=== PATIENT | male | born 1950 | race Caucasian/White ===

== ENCOUNTER 2020-03-02 09:55 | Day surgery (SDC) | payer OTHER, SELFPAY ==
[2020-02-28 14:08] VITALS: BMI 31.6
--- NOTE | 2020-03-02 10:55 | ECG_ITS ---
Measurements Intervals [place] Rate: 65 P: 56 [place]: 200 QRS: 11 QRSD: 148 T: 9 QT: 424 QTc: 441 SINUS RHYTHM RIGHT BUNDLE BRANCH BLOCK [120+ ms QRS DURATION, UPRIGHT V1, 40+ ms S IN I/aVL/V4/V5/V6] No previous ECG available for comparison Electronically Signed On 03-02-2020 19:30:58 CDT by Bon Hemphill M.D. [id number]
[2020-03-02 11:03] VITALS: BP 144/93; PULSE 62; RESP 18; TEMP 36.4; O2SAT 95
[2020-03-02 11:23] LABS: Glucose Point of Care 111 mg/dL (70-110)
--- NOTE | 2020-03-02 11:23 | ANES.PREANE2 ---
Pre-Anesthetic Assessment Pre-Anesthetic Assessment: Height/Weight: Height 1.8 m Weight 102.965 kg Temp Pulse Resp BP Pulse Ox 97.6 F 62 18 144/93 95 03/02/20 11:03 03/02/20 11:03 03/02/20 11:03 03/02/20 11:03 03/02/20 11:03 Preop Diagnosis: Lower back infected sebaceous cyst Proposed Procedure: Operation Date: 03/02/20 11:40 Proposed Procedures p Incision And Drainage abcess of lower back 67014 L02.91(Not Applicable) - Tim Louis MD Familial anesthetic complications: None Last took plavix monday Was Beta Ximena taken within 24 hours: Yes Last intake: Intake Last Liquid Date 03/01/20 Last Liquid Time 19: Last Solid Date 03/01/20 Last Solid Time :00 Social: Social History: No alcohol and No tobacco Exam: Pre-Anes Outpt Exam: alert, oriented x 3, clear to auscultation bilaterally and regular rate & rhythm Airway: Cervical ROM: WNL MP: 2 Dentition: False Pulmonary: Pulmonary: None reported CV/HEM: CV/HEM: CAD (stents placed 5 years ago) and HTN Comments: CABG X 7 2004 RBBb HX of pericardial effusion in 1994 : : None reported Hepatic: Hepatic: None reported GI: GI: None reported Metabolic: Metabolic: DM Musc/skel: Musc/skel: None reported Neuropsych: Neuropsych: None reported Anesthetic Plan: ASA status: 3 Anesthesia: MAC Risk of > 500 ml blood loss (7ml/kg in children): No PFSH Anesthesia PFSH: Medical History COPD (chronic obstructive pulmonary disease) Cyst Diabetes History of myocardial infarction in adulthood Hyperlipidemia Hypertension Surgical History History of colonoscopy with polypectomy History of coronary angioplasty with insertion of stent Family History Denies family history of Anesthesia complication Bleeding disorder Social History Smoking and tobacco status: never smoked Second hand smoke exposure: No Alcohol intake: never Adopted: No Caregiver/support person: Yes Lives independently: Yes Household members: spouse Housing: House Marital status: service: Yes Current occupational status: retired Pets and animals: No History of recent travel: No Leisure activites: exercise Sexually active: No Current gender identity: Male Mayra/Moravian: Orthodoxy Special mayra needs: No Agree to transfusion: No Financial difficulty paying for basics: Decline to Answer Data Anesthesia Cardiac Studies: No Data to Display
[2020-03-02] MEDS: sodium chloride 0.9% 1,000 ML 30 ML IV (11:30)
--- NOTE | 2020-03-02 11:40 | W.PM.OPSUD ---
Surgery/Procedure H&P Update DATE OF PROCEDURE: March 02, 2020 DATE H&P PERFORMED: 02/26/20 H&P UPDATE INFORMATION: I have reviewed H&P completed within last 30 days, I have examined patient prior to procedure and No changes to prior documentation PREOP DIAGNOSIS: Lower back infected sebaceous cyst PRIMARY INDICATION FOR PROCEDURE: The same PLANNED PROCEDURE: Operation Date: 03/02/20 11:40 Proposed Procedures p Incision And Drainage abcess of lower back 14666 L02.91(Not Applicable) - Tim Louis MD
[2020-03-02 11:44] LABS: Anion Gap 17.4 (5-19); Blood Urea Nitrogen 26 mg/dL (8-23); Calcium 9.3 mg/dL (8.5-10.5); Carbon Dioxide 24 mmol/L (22-29); Chloride 99 mmol/L (98-107); Glomerular Filtration Rate 50.5 mL/min (90-130); Glucose 113 mg/dL (65-115); Osmolality Calculated 278 mOsm/kg (285-295); Potassium 5.4 mmol/L (3.5-5.1); Sodium 135 mmol/L (136-145)
[2020-03-02] MEDS: clindamycin 900 MG/50 ML PREMIX 100 MG IV (12:25)
[2020-03-02] MEDS: lidocaine 2% INJ 20 mL ×2 (13:25→13:28)
--- NOTE | 2020-03-02 13:27 | PM.OP ---
Operative Report Date of procedure: March 02, 2020 Pre-op Diagnosis: Lower back infected sebaceous cyst Post-op diagnosis: same Post-op Diagnosis: Infected lower back sebaceous cyst Post-op Findings: Post I&D measurements 5 x 3.5 x [address] to the subcutaneous layer Procedure Done: Incision and drainage of infected sebaceous cyst with excision of infected cyst Implants: Large piece of Surgicel Specimens removed/disposition: Infected sebaceous cyst Surgeon: Tim Louis Manager Of Merchandising: food science technician Shawn Circulating nurse Kimberlyn Anesthesia: MAC (Ramy Blackmon) Estimated blood loss (mL): 5 Condition: stable Disposition: same day Brief History: This is a pleasant 69 years old gentleman with 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 An informed consent per chart Procedure: After identifying the patient holding area, the lower back was marked before the procedure by myself, patient was then taken to the operative suite, was placed in supine position then left lateral were all pressure points were padded, propofol was infused by anesthesia, patient was given prophylactic antibiotics.. Time-out was done verifying the patient's name/date of /planned procedure and destination after the procedure, all were in agreement After palpation of the lower back abscess, I did add elliptical transverse incision on top of the most fluctuant area, underlying infected sebaceous cyst with contents, were excised leaving behind healthier tissue cavity measuring 5 x 3.5 x [address] to the subcutaneous layer. Sharp debridement was done all the way to the subcutaneous layer Thorough irrigation with warm saline was done, followed by appropriate hemostasis, large piece of Surgicel was placed for completion hemostasis, followed by packing using mini Kerlix impregnated and lidocaine 2% was used to pack the wound cavity Dry dressing was then applied in the form of ABDs, followed by tape Patient tolerated the procedure well, count of instruments, needles and sponges were completed at the end of the procedure. And then patient was taken to the recovery area in stable condition. I Was present for the whole entire procedure
[2020-03-02 13:53] VITALS: BP 103/49; PULSE 57; RESP 18; O2SAT 96
[2020-03-02 14:20] VITALS: BP 113/56; PULSE 63; RESP 18; O2SAT 100
== END 2020-03-02 14:40 | disposition home or self-care (01) ==
PROVIDERS: Anesthesiology; Family Provider Emergency Medicine Emergency Medical Services; Visit Provider Surgery
PROC: (CPT 11042; principal; 2020-03-02 11:30)
DX: L72.3 Sebaceous cyst (principal); I25.10 Atherosclerotic heart disease of native coronary artery without angina pectoris; I10 Essential (primary) hypertension; Z95.1 Presence of aortocoronary bypass graft; E11.9 Type 2 diabetes mellitus without complications; J44.9 Chronic obstructive pulmonary disease, unspecified; I25.2 Old myocardial infarction; E78.5 Hyperlipidemia, unspecified; Z79.84 Long term (current) use of oral hypoglycemic drugs
CPT/HCPCS: 11042; 12345; 36416; 80048; 82962; 85025; 88304; 93005; J2001; J2250; J3010; J3490; J7030

== ENCOUNTER 2020-03-06 07:59 | Outpatient (CLI) | payer OTHER, SELFPAY | END 2020-03-06 08:00 | disposition home or self-care (01) | LOC: WOUND 08:08 | PROVIDERS: Family Provider Emergency Medicine Emergency Medical Services; Visit Provider Nurse Practitioner Family | DX: L72.8 Other follicular cysts of the skin and subcutaneous tissue (principal) | CPT/HCPCS: 11042; G0463 ==

== ENCOUNTER 2020-03-10 08:21 | Outpatient (CLI) | payer OTHER, SELFPAY | END 2020-03-10 08:22 | disposition home or self-care (01) | LOC: WOUND 08:25 | PROVIDERS: Family Provider Emergency Medicine Emergency Medical Services; Visit Provider Thoracic Surgery (Cardiothoracic Vascular Surgery) | DX: Z51.89 Encounter for other specified aftercare (principal) | CPT/HCPCS: 99212 ==

== ENCOUNTER 2020-03-13 09:25 | Outpatient (CLI) | payer OTHER, SELFPAY | END 2020-03-13 09:26 | disposition home or self-care (01) | LOC: WOUND 09:41 | PROVIDERS: Family Provider Emergency Medicine Emergency Medical Services; Visit Provider Surgery | DX: T81.89XA Other complications of procedures, not elsewhere classified, initial encounter (principal) | CPT/HCPCS: 11042 ==

== ENCOUNTER 2020-03-20 08:33 | Outpatient (CLI) | payer OTHER, SELFPAY | END 2020-03-20 08:34 | disposition home or self-care (01) | LOC: WOUND 08:38 | PROVIDERS: Family Provider Emergency Medicine Emergency Medical Services; Visit Provider Surgery | DX: I96 Gangrene, not elsewhere classified (principal); L72.8 Other follicular cysts of the skin and subcutaneous tissue | CPT/HCPCS: 11042 ==

== ENCOUNTER 2020-03-23 13:03 | Outpatient (CLI) | payer OTHER, SELFPAY | END 2020-03-23 13:04 | disposition home or self-care (01) | LOC: WOUND 13:04 | PROVIDERS: Family Provider Emergency Medicine Emergency Medical Services; Visit Provider Nurse Practitioner Family | DX: Z51.89 Encounter for other specified aftercare (principal) | CPT/HCPCS: 97605 ==

== ENCOUNTER 2020-03-23 13:50 | Outpatient (CLI) | payer OTHER, SELFPAY ==
[2020-03-23 14:37] LABS: Alanine Aminotransferase 38 U/L (0-41); Albumin Level 4.6 g/dL (3.5-5.2); Alkaline Phosphatase 71 IU/L (40-130); Anion Gap 19.6 (5-19); Aspartate Amino Transferase 31 U/L (0-40); Blood Urea Nitrogen 31 mg/dL (8-23); Calcium 9.7 mg/dL (8.5-10.5); Carbon Dioxide 24 mmol/L (22-29); Chloride 98 mmol/L (98-107); Glomerular Filtration Rate 55.1 mL/min (90-130); Glucose 126 mg/dL (65-115); Osmolality Calculated 283 mOsm/kg (285-295); Potassium 4.6 mmol/L (3.5-5.1); Sodium 137 mmol/L (136-145); Total Bilirubin 0.5 mg/dL (0.15-1.2); Total Protein 7.6 g/dL (6.6-8.7)
== END 2020-03-23 13:51 | disposition home or self-care (01) ==
LOC: LAB 13:52
PROVIDERS: Family Provider Emergency Medicine Emergency Medical Services; Visit Provider Surgery
DX: R52 Pain, unspecified (principal); L98.499 Non-pressure chronic ulcer of skin of other sites with unspecified severity
CPT/HCPCS: 36415; 80053; 84134

== ENCOUNTER 2020-04-03 08:53 | Outpatient (CLI) | payer OTHER, SELFPAY | END 2020-04-03 08:54 | disposition home or self-care (01) | LOC: WOUND 08:54 | PROVIDERS: Family Provider Emergency Medicine Emergency Medical Services; Visit Provider Surgery | DX: T81.89XA Other complications of procedures, not elsewhere classified, initial encounter (principal); Y83.8 Other surgical procedures as the cause of abnormal reaction of the patient, or of later complication, without mention of misadventure at the time of the procedure | CPT/HCPCS: 11042; 97605 ==

== ENCOUNTER 2020-04-10 10:27 | Outpatient (CLI) | payer OTHER, SELFPAY | END 2020-04-10 10:28 | disposition home or self-care (01) | LOC: WOUND 10:28 | PROVIDERS: Family Provider Emergency Medicine Emergency Medical Services; Visit Provider Surgery | DX: T81.89XA Other complications of procedures, not elsewhere classified, initial encounter (principal) | CPT/HCPCS: 97597 ==

== ENCOUNTER 2020-04-17 10:59 | Outpatient (CLI) | payer OTHER, SELFPAY | END 2020-04-17 11:00 | disposition home or self-care (01) | LOC: WOUND 11:01 | PROVIDERS: Family Provider Emergency Medicine Emergency Medical Services; Visit Provider Surgery | DX: T81.89XA Other complications of procedures, not elsewhere classified, initial encounter (principal) | CPT/HCPCS: 97597 ==

== ENCOUNTER 2020-04-24 10:51 | Outpatient (CLI) | payer OTHER, SELFPAY | END 2020-04-24 10:52 | disposition home or self-care (01) | LOC: WOUND 10:52 | PROVIDERS: Family Provider Emergency Medicine Emergency Medical Services; Visit Provider Surgery | DX: E11.622 Type 2 diabetes mellitus with other skin ulcer (principal); L98.492 Non-pressure chronic ulcer of skin of other sites with fat layer exposed | CPT/HCPCS: 97597 ==

== ENCOUNTER 2020-05-01 10:52 | Outpatient (CLI) | payer OTHER, SELFPAY | END 2020-05-01 10:53 | disposition home or self-care (01) | LOC: WOUND 10:53 | PROVIDERS: Family Provider Emergency Medicine Emergency Medical Services; Visit Provider Thoracic Surgery (Cardiothoracic Vascular Surgery) | DX: T81.89XA Other complications of procedures, not elsewhere classified, initial encounter (principal) | CPT/HCPCS: 11042 ==

== ENCOUNTER 2020-05-08 10:39 | Outpatient (CLI) | payer OTHER, SELFPAY | END 2020-05-08 10:40 | disposition home or self-care (01) | LOC: WOUND 10:39 | PROVIDERS: Family Provider Emergency Medicine Emergency Medical Services; Visit Provider Surgery | DX: Z09 Encounter for follow-up examination after completed treatment for conditions other than malignant neoplasm (principal) | CPT/HCPCS: 99212 ==

== ENCOUNTER 2021-01-02 16:51 | Inpatient (IN) | payer OTHER, MEDICARE, SELFPAY ==
[2021-01-02 17:10] VITALS: BP 185/81; PULSE 85; RESP 18; TEMP 36.6; O2SAT 96; BMI 31.1
--- NOTE | 2021-01-02 18:21 | ECG_ITS ---
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 Measurements Intervals [place] Rate: 85 P: 68 [place]: 213 QRS: 64 QRSD: 151 T: 37 QT: 408 QTc: 487 Interpretive Statements SINUS RHYTHM WITH FIRST DEGREE AV BLOCK RIGHT BUNDLE BRANCH BLOCK [120+ ms QRS DURATION, UPRIGHT V1, 40+ ms S IN I/aVL/V4/V5/V6] Compared to ECG 03/02/2020 11:07:20 First degree AV block now present Electronically Signed On 01-03-2021 15:33:31 CDT by Robert Fairbanks M.D. [id number]
--- NOTE | 2021-01-02 18:22 | W.ED.ABDPA2 ---
Documented by User: ABDULLAHI Boateng 01/02/21 22:31 HPI - Abdominal Pain General: Chief Complaint: Abdominal Pain Stated Complaint: Stomach pains Time Seen by Provider: 01/02/21 18:20 Source: patient Mode of arrival: ambulatory Limitations: no limitations History of Present Illness: HPI narrative: Patient presents with generalized abdominal discomfort and pain for the last 2 to 3 weeks. Patient reports he feels like he is bloated. Patient does have his gallbladder. Patient has a history of coronary artery disease, diabetes mellitus, and occasional reflux and heartburn. Patient appears well. Patient appears in no acute distress. MD elicited complaint: abdominal pain Pertinent past history: constipation and myocardial infarction Onset (ago): day(s) Pain Consistency: intermittent Location: Epigastric Severity: moderate Quality: fullness Exacerbating factors: eating Relieving factors: medication (Gas-X) Associated Symptoms: Reports bloating, change in bowel habits and excessive flatus Review of Systems General: Reports: 10 or more systems reviewed and unremarkable except in HPI and below GI: Reports: bloating, excessive flatus and change in bowel habits PFS ED PFSH: Medical History (Updated 01/03/21 @ 06:08 by Adolfo Zarate DO) COPD (chronic obstructive pulmonary disease) Cyst Diabetes History of myocardial infarction in adulthood Hyperlipidemia Hypertension Surgical History History of colonoscopy with polypectomy History of coronary angioplasty with insertion of stent Family History Denies family history of Anesthesia complication Bleeding disorder Social History Smoking and tobacco status: never smoked Second hand smoke exposure: No Alcohol intake: never Adopted: No Caregiver/support person: Yes Lives independently: Yes Household members: spouse Housing: House Marital status: service: Yes Current occupational status: retired Pets and animals: No History of recent travel: No Leisure activites: exercise Sexually active: No Current gender identity: Male Mayra/Roman Catholic: Buddhism Special mayra needs: No Agree to transfusion: No Financial difficulty paying for basics: Decline to Answer Physical Exam Const: COMMON NORMALS: no acute distress and patient oriented x3 GENERAL APPEARANCE: cooperative HENMT: COMMON NORMALS: normocephalic and Normal external nose present HEAD & SCALP: normal to inspection and normocephalic NOSE: Normal external nose present MOUTH: Normal oral and palatal mucosa present THROAT: posterior oropharynx normal Eye: GENERAL EYE: appearance normal, both eyes and all related structures Neck/C-Spine: COMMON NORMALS: full ROM Lymph: LYMPHATIC: no lymphadenopathy noted Chest: COMMONS NORMALS: normal inspection of the chest Resp: COMMON NORMALS: normal respiratory effort EFFORT & INSPECTION: Yes able to speak in complete sentences Cardio: COMMON NORMALS: regular rate and regular rhythm RATE: regular rate RHYTHM: regular rhythm GI: COMMON NORMALS: Soft to palpation INSPECTION: Yes normal to inspection and Yes central obesity AUSCULTATION: Yes Hyperactive bowel sounds present PALPATION: Yes Soft to palpation and Yes Tenderness to palpation present (GI) (General tenderness) : COMMON NORMALS: Yes no CVA tenderness BLADDER/KIDNEY EXAM: Yes no CVA tenderness Back/Pelvis: COMMON NORMALS: no CVA tenderness and thoracic and lumbar spine normal to inspection Extremity: COMMON NORMALS: normal to inspection Neuro: COMMON NORMALS: patient oriented x3 and moves all extremities Psych: COMMON NORMALS: mental status grossly normal and cooperative Skin: COMMON NORMALS: no rashes or lesions noted GENERAL SKIN EXAM: no rashes or lesions noted Course ED course: 1954, reviewed patient's lab noted elevation in lipase which is suggestive of a pancreatitis. I went ahead and added triglycerides and INR to laboratory values. I discussed this with Dr. Zarate who agreed to plan and recommendations. We are awaiting CT report. 2030, discussed with Dr. Zarate patient CT report showing a pancreatic cyst. Dr. Zarate will talk with hospitalist to discuss further treatment options and further evaluation with possible admission or transfer. He agreed to assume care of patient. Vital Signs: Vital signs: Vital Signs Temperature 97.8 F 01/02/21 17:10 Pulse Rate 85 01/03/21 08:47 Respiratory Rate 13 01/03/21 08:47 Blood Pressure 178/69 01/03/21 08:47 Pulse Oximetry 94 01/03/21 08:47 MDM - Abdominal Pain Lab Data: Labs: Lab Results 01/02/21 01/02/21 01/02/21 Range/Units 18:00 18:35 18:35 WBC 15.1 H (4.0-10.0) 10^3/ uL RBC 5.14 (4.1-5.3) 10^6/u L Hgb 14.7 (11.7-16.6) g/dL Hct 44.9 (42.0-52.0) % MCV 87.4 (80-94) fL MCH 28.6 (28.0-34.0) pg MCHC 32.7 (30.0-36.0) g/dL RDW 14.5 (12.1-15.1) % Plt Count 300 (130-400) 10^3/c mm MPV 10.4 (7.4-10.4) fL Neut % (Auto) 75.8 % Lymph % (Auto) 13.1 % [place] % (Auto) 7.4 % Eos % (Auto) 2.7 % Baso % (Auto) 0.7 % Neut # (Auto) 11.40 H (1.8-7.7) 10^3/u L Lymph # (Auto) 2.0 (0.8-4.8) 10^3/u L [place] # (Auto) 1.1 H (0.2-0.9) 10^3/u L Eos # (Auto) 0.4 (0.0-0.8) 10^3/u L Baso # (Auto) 0.1 (0.0-0.1) 10^3/u L Nucleated RBC % (a uto) 0 % Nucleated RBCs # 0.0 /100WBC PT (12.1-14.9) SECO NDS INR (0.8-1.2) Sodium 135 L (136-145) mmol/L Potassium 4.1 (3.5-5.1) mmol/L Chloride 97 L (98-107) mmol/L Carbon Dioxide 25 (22-29) mmol/L Anion Gap 17.1 (5-19) BUN 21 (8-23) mg/dL Creatinine 1.2 (0.7-1.2) mg/dL GFR Calculation 60.2 L (90-130) mL/min Glucose 84 (65-115) mg/dL POC Glucose (70-110) mg/dL Calculated Osmolal ity 282 L (285-295) mOsm/k g Calcium 9.8 (8.5-10.5) mg/dL Total Bilirubin 0.5 (0.15-1.2) mg/dL AST 41 H (0-40) U/L ALT 54 H (0-41) U/L Alkaline Phosphata se 80 (40-130) IU/L Troponin T Baselin e (0-15) ng/L Troponin T 120 Min [place] (0-15) ng/L Delta Troponin T (0-10) ABS# Troponin T Hi Sens 6Hr (0-15) ng/L Troponin T Hi Sens 6Hr Delta (0-12) ng/L NT-Pro-B Natriuret Pep 263 H (0-125) pg/mL Total Protein 8.0 (6.6-8.7) g/dL Albumin 4.9 (3.5-5.2) g/dL Globulin 3.1 (1.3-4.6) g/dL Triglycerides 111 (0-150) mg/dL Lipase 1546 H (13-60) U/L Urine Color (Yellow) Urine Appearance (CLEAR) Urine pH (5-7) Ur Specific Gravit y (1.005-1.030) Urine Protein (Negative) Urine Glucose (UA) (Normal) Urine Ketones (Negative) Urine Blood (Negative) Urine Nitrate (Negative) Urine Bilirubin (Negative) Urine Urobilinogen (Negative) mg/dL Ur Leukocyte Lucinda ase (Negative) 01/02/21 01/02/21 01/02/21 Range/Units 18:35 18:35 20:23 WBC (4.0-10.0) 10^3/ uL RBC (4.1-5.3) 10^6/u L Hgb (11.7-16.6) g/dL Hct (42.0-52.0) % MCV (80-94) fL MCH (28.0-34.0) pg MCHC (30.0-36.0) g/dL RDW (12.1-15.1) % Plt Count (130-400) 10^3/c mm MPV (7.4-10.4) fL Neut % (Auto) % Lymph % (Auto) % [place] % (Auto) % Eos % (Auto) % Baso % (Auto) % Neut # (Auto) (1.8-7.7) 10^3/u L Lymph # (Auto) (0.8-4.8) 10^3/u L [place] # (Auto) (0.2-0.9) 10^3/u L Eos # (Auto) (0.0-0.8) 10^3/u L Baso # (Auto) (0.0-0.1) 10^3/u L Nucleated RBC % (a uto) % Nucleated RBCs # /100WBC PT 13.20 (12.1-14.9) SECO NDS INR 0.97 (0.8-1.2) Sodium (136-145) mmol/L Potassium (3.5-5.1) mmol/L Chloride (98-107) mmol/L Carbon Dioxide (22-29) mmol/L Anion Gap (5-19) BUN (8-23) mg/dL Creatinine (0.7-1.2) mg/dL GFR Calculation (90-130) mL/min Glucose (65-115) mg/dL POC Glucose (70-110) mg/dL Calculated Osmolal ity (285-295) mOsm/k g Calcium (8.5-10.5) mg/dL Total Bilirubin (0.15-1.2) mg/dL AST (0-40) U/L ALT (0-41) U/L Alkaline Phosphata se (40-130) IU/L Troponin T Baselin e 48 H (0-15) ng/L Troponin T 120 Min [place] 43.41 H (0-15) ng/L Delta Troponin T -4.59 L (0-10) ABS# Troponin T Hi Sens 6Hr (0-15) ng/L Troponin T Hi Sens 6Hr Delta (0-12) ng/L NT-Pro-B Natriuret Pep (0-125) pg/mL Total Protein (6.6-8.7) g/dL Albumin (3.5-5.2) g/dL Globulin (1.3-4.6) g/dL Triglycerides (0-150) mg/dL Lipase (13-60) U/L Urine Color (Yellow) Urine Appearance (CLEAR) Urine pH (5-7) Ur Specific Gravit y (1.005-1.030) Urine Protein (Negative) Urine Glucose (UA) (Normal) Urine Ketones (Negative) Urine Blood (Negative) Urine Nitrate (Negative) Urine Bilirubin (Negative) Urine Urobilinogen (Negative) mg/dL Ur Leukocyte Lucinda ase (Negative) 01/02/21 01/02/21 01/03/21 Range/Units 22:14 23:56 00:56 WBC (4.0-10.0) 10^3/ uL RBC (4.1-5.3) 10^6/u L Hgb (11.7-16.6) g/dL Hct (42.0-52.0) % MCV (80-94) fL MCH (28.0-34.0) pg MCHC (30.0-36.0) g/dL RDW (12.1-15.1) % Plt Count (130-400) 10^3/c mm MPV (7.4-10.4) fL Neut % (Auto) % Lymph % (Auto) % [place] % (Auto) % Eos % (Auto) % Baso % (Auto) % Neut # (Auto) (1.8-7.7) 10^3/u L Lymph # (Auto) (0.8-4.8) 10^3/u L [place] # (Auto) (0.2-0.9) 10^3/u L Eos # (Auto) (0.0-0.8) 10^3/u L Baso # (Auto) (0.0-0.1) 10^3/u L Nucleated RBC % (a uto) % Nucleated RBCs # /100WBC PT (12.1-14.9) SECO NDS INR (0.8-1.2) Sodium (136-145) mmol/L Potassium (3.5-5.1) mmol/L Chloride (98-107) mmol/L Carbon Dioxide (22-29) mmol/L Anion Gap (5-19) BUN (8-23) mg/dL Creatinine (0.7-1.2) mg/dL GFR Calculation (90-130) mL/min Glucose (65-115) mg/dL POC Glucose 118 H (70-110) mg/dL Calculated Osmolal ity (285-295) mOsm/k g Calcium (8.5-10.5) mg/dL Total Bilirubin (0.15-1.2) mg/dL AST (0-40) U/L ALT (0-41) U/L Alkaline Phosphata se (40-130) IU/L Troponin T Baselin e (0-15) ng/L Troponin T 120 Min [place] (0-15) ng/L Delta Troponin T (0-10) ABS# Troponin T Hi Sens 6Hr 42.47 H (0-15) ng/L Troponin T Hi Sens 6Hr Delta -5.53 L (0-12) ng/L NT-Pro-B Natriuret Pep (0-125) pg/mL Total Protein (6.6-8.7) g/dL Albumin (3.5-5.2) g/dL Globulin (1.3-4.6) g/dL Triglycerides (0-150) mg/dL Lipase (13-60) U/L Urine Color Yellow (Yellow) Urine Appearance Clear (CLEAR) Urine pH 5 (5-7) Ur Specific Gravit y 1.015 (1.005-1.030) Urine Protein Neg (Negative) Urine Glucose (UA) Norm (Normal) Urine Ketones Negative (Negative) Urine Blood Neg (Negative) Urine Nitrate Negative (Negative) Urine Bilirubin Neg (Negative) Urine Urobilinogen Norm (Negative) mg/dL Ur Leukocyte Lucinda ase Negative (Negative) Discharge Plan Discharge Patient Disposition: Xfer Short-Term Hosp Clinical Impression: Pancreatitis Qualifiers: Chronicity: acute Pancreatitis type: other Acute pancreatitis complication: unspecified Qualified Code(s): K85.80 - Other acute pancreatitis without necrosis or infection Condition: Stable Sign Out Sign Out Data: Patient Sign Out occurred on 01/03/21 at 06:45. Patient's care was discussed, and care was transferred from to Bull Yu DO. Coding Level of Care Code ED Fire Protection Designer for Chg Fwd Exam Comprehensive Documented by User: Adolfo Zarate DO 01/03/21 06:09 HPI - Abdominal Pain General: Chief Complaint: Abdominal Pain Stated Complaint: Stomach pains Time Seen by Provider: 01/02/21 18:20 PFSH ED PFSH: Medical History (Updated 01/03/21 @ 06:08 by Adolfo Zarate DO) COPD (chronic obstructive pulmonary disease) Cyst Diabetes History of myocardial infarction in adulthood Hyperlipidemia Hypertension Surgical History History of colonoscopy with polypectomy History of coronary angioplasty with insertion of stent Family History Denies family history of Anesthesia complication Bleeding disorder Social History Smoking and tobacco status: never smoked Second hand smoke exposure: No Alcohol intake: never Adopted: No Caregiver/support person: Yes Lives independently: Yes Household members: spouse Housing: House Marital status: service: Yes Current occupational status: retired Pets and animals: No History of recent travel: No Leisure activites: exercise Sexually active: No Current gender identity: Male Mayra/Roman Catholic: Buddhism Special mayra needs: No Agree to transfusion: No Financial difficulty paying for basics: Decline to Answer Course ED course: 70-year-old male originally seen by ABDULLAHI Rhodes. I agree with his history, evaluation, and treatment. This patient has pancreatitis. His INR is normal. His liver enzymes are essentially normal as well. It appears nonobstructive. He does however have a cystic structure in the uncinate process on CT scan. His white blood cell count is 15. Discussed the case with gastroenterology at [facility] in [place]. They will take the hospitalist service, but they do not have a bed tonight. I do not have a ground ambulance crew to take the patient tonight anyway. We will start treatment for pancreatitis with fluid support, imipenem, and n.p.o. status except for chips and sips here in the ER. They will let us know when they have a bed available in the morning Consultations: Consultation #1: [facility] Vital Signs: Vital signs: Vital Signs Temperature 97.8 F 01/02/21 17:10 Pulse Rate 85 01/03/21 08:47 Respiratory Rate 13 01/03/21 08:47 Blood Pressure 178/69 01/03/21 08:47 Pulse Oximetry 94 01/03/21 08:47 MDM - Abdominal Pain Lab Data: Labs: Lab Results 01/02/21 01/02/21 01/02/21 Range/Units 18:00 18:35 18:35 WBC 15.1 H (4.0-10.0) 10^3/ uL RBC 5.14 (4.1-5.3) 10^6/u L Hgb 14.7 (11.7-16.6) g/dL Hct 44.9 (42.0-52.0) % MCV 87.4 (80-94) fL MCH 28.6 (28.0-34.0) pg MCHC 32.7 (30.0-36.0) g/dL RDW 14.5 (12.1-15.1) % Plt Count 300 (130-400) 10^3/c mm MPV 10.4 (7.4-10.4) fL Neut % (Auto) 75.8 % Lymph % (Auto) 13.1 % [place] % (Auto) 7.4 % Eos % (Auto) 2.7 % Baso % (Auto) 0.7 % Neut # (Auto) 11.40 H (1.8-7.7) 10^3/u L Lymph # (Auto) 2.0 (0.8-4.8) 10^3/u L [place] # (Auto) 1.1 H (0.2-0.9) 10^3/u L Eos # (Auto) 0.4 (0.0-0.8) 10^3/u L Baso # (Auto) 0.1 (0.0-0.1) 10^3/u L Nucleated RBC % (a uto) 0 % Nucleated RBCs # 0.0 /100WBC PT (12.1-14.9) SECO NDS INR (0.8-1.2) Sodium 135 L (136-145) mmol/L Potassium 4.1 (3.5-5.1) mmol/L Chloride 97 L (98-107) mmol/L Carbon Dioxide 25 (22-29) mmol/L Anion Gap 17.1 (5-19) BUN 21 (8-23) mg/dL Creatinine 1.2 (0.7-1.2) mg/dL GFR Calculation 60.2 L (90-130) mL/min Glucose 84 (65-115) mg/dL POC Glucose (70-110) mg/dL Calculated Osmolal ity 282 L (285-295) mOsm/k g Calcium 9.8 (8.5-10.5) mg/dL Total Bilirubin 0.5 (0.15-1.2) mg/dL AST 41 H (0-40) U/L ALT 54 H (0-41) U/L Alkaline Phosphata se 80 (40-130) IU/L Troponin T Baselin e (0-15) ng/L Troponin T 120 Min [place] (0-15) ng/L Delta Troponin T (0-10) ABS# Troponin T Hi Sens 6Hr (0-15) ng/L Troponin T Hi Sens 6Hr Delta (0-12) ng/L NT-Pro-B Natriuret Pep 263 H (0-125) pg/mL Total Protein 8.0 (6.6-8.7) g/dL Albumin 4.9 (3.5-5.2) g/dL Globulin 3.1 (1.3-4.6) g/dL Triglycerides 111 (0-150) mg/dL Lipase 1546 H (13-60) U/L Urine Color (Yellow) Urine Appearance (CLEAR) Urine pH (5-7) Ur Specific Gravit y (1.005-1.030) Urine Protein (Negative) Urine Glucose (UA) (Normal) Urine Ketones (Negative) Urine Blood (Negative) Urine Nitrate (Negative) Urine Bilirubin (Negative) Urine Urobilinogen (Negative) mg/dL Ur Leukocyte Lucinda ase (Negative) 01/02/21 01/02/21 01/02/21 Range/Units 18:35 18:35 20:23 WBC (4.0-10.0) 10^3/ uL RBC (4.1-5.3) 10^6/u L Hgb (11.7-16.6) g/dL Hct (42.0-52.0) % MCV (80-94) fL MCH (28.0-34.0) pg MCHC (30.0-36.0) g/dL RDW (12.1-15.1) % Plt Count (130-400) 10^3/c mm MPV (7.4-10.4) fL Neut % (Auto) % Lymph % (Auto) % [place] % (Auto) % Eos % (Auto) % Baso % (Auto) % Neut # (Auto) (1.8-7.7) 10^3/u L Lymph # (Auto) (0.8-4.8) 10^3/u L [place] # (Auto) (0.2-0.9) 10^3/u L Eos # (Auto) (0.0-0.8) 10^3/u L Baso # (Auto) (0.0-0.1) 10^3/u L Nucleated RBC % (a uto) % Nucleated RBCs # /100WBC PT 13.20 (12.1-14.9) SECO NDS INR 0.97 (0.8-1.2) Sodium (136-145) mmol/L Potassium (3.5-5.1) mmol/L Chloride (98-107) mmol/L Carbon Dioxide (22-29) mmol/L Anion Gap (5-19) BUN (8-23) mg/dL Creatinine (0.7-1.2) mg/dL GFR Calculation (90-130) mL/min Glucose (65-115) mg/dL POC Glucose (70-110) mg/dL Calculated Osmolal ity (285-295) mOsm/k g Calcium (8.5-10.5) mg/dL Total Bilirubin (0.15-1.2) mg/dL AST (0-40) U/L ALT (0-41) U/L Alkaline Phosphata se (40-130) IU/L Troponin T Baselin e 48 H (0-15) ng/L Troponin T 120 Min [place] 43.41 H (0-15) ng/L Delta Troponin T -4.59 L (0-10) ABS# Troponin T Hi Sens 6Hr (0-15) ng/L Troponin T Hi Sens 6Hr Delta (0-12) ng/L NT-Pro-B Natriuret Pep (0-125) pg/mL Total Protein (6.6-8.7) g/dL Albumin (3.5-5.2) g/dL Globulin (1.3-4.6) g/dL Triglycerides (0-150) mg/dL Lipase (13-60) U/L Urine Color (Yellow) Urine Appearance (CLEAR) Urine pH (5-7) Ur Specific Gravit y (1.005-1.030) Urine Protein (Negative) Urine Glucose (UA) (Normal) Urine Ketones (Negative) Urine Blood (Negative) Urine Nitrate (Negative) Urine Bilirubin (Negative) Urine Urobilinogen (Negative) mg/dL Ur Leukocyte Lucinda ase (Negative) 01/02/21 01/02/21 01/03/21 Range/Units 22:14 23:56 00:56 WBC (4.0-10.0) 10^3/ uL RBC (4.1-5.3) 10^6/u L Hgb (11.7-16.6) g/dL Hct (42.0-52.0) % MCV (80-94) fL MCH (28.0-34.0) pg MCHC (30.0-36.0) g/dL RDW (12.1-15.1) % Plt Count (130-400) 10^3/c mm MPV (7.4-10.4) fL Neut % (Auto) % Lymph % (Auto) % [place] % (Auto) % Eos % (Auto) % Baso % (Auto) % Neut # (Auto) (1.8-7.7) 10^3/u L Lymph # (Auto) (0.8-4.8) 10^3/u L [place] # (Auto) (0.2-0.9) 10^3/u L Eos # (Auto) (0.0-0.8) 10^3/u L Baso # (Auto) (0.0-0.1) 10^3/u L Nucleated RBC % (a uto) % Nucleated RBCs # /100WBC PT (12.1-14.9) SECO NDS INR (0.8-1.2) Sodium (136-145) mmol/L Potassium (3.5-5.1) mmol/L Chloride (98-107) mmol/L Carbon Dioxide (22-29) mmol/L Anion Gap (5-19) BUN (8-23) mg/dL Creatinine (0.7-1.2) mg/dL GFR Calculation (90-130) mL/min Glucose (65-115) mg/dL POC Glucose 118 H (70-110) mg/dL Calculated Osmolal ity (285-295) mOsm/k g Calcium (8.5-10.5) mg/dL Total Bilirubin (0.15-1.2) mg/dL AST (0-40) U/L ALT (0-41) U/L Alkaline Phosphata se (40-130) IU/L Troponin T Baselin e (0-15) ng/L Troponin T 120 Min [place] (0-15) ng/L Delta Troponin T (0-10) ABS# Troponin T Hi Sens 6Hr 42.47 H (0-15) ng/L Troponin T Hi Sens 6Hr Delta -5.53 L (0-12) ng/L NT-Pro-B Natriuret Pep (0-125) pg/mL Total Protein (6.6-8.7) g/dL Albumin (3.5-5.2) g/dL Globulin (1.3-4.6) g/dL Triglycerides (0-150) mg/dL Lipase (13-60) U/L Urine Color Yellow (Yellow) Urine Appearance Clear (CLEAR) Urine pH 5 (5-7) Ur Specific Gravit y 1.015 (1.005-1.030) Urine Protein Neg (Negative) Urine Glucose (UA) Norm (Normal) Urine Ketones Negative (Negative) Urine Blood Neg (Negative) Urine Nitrate Negative (Negative) Urine Bilirubin Neg (Negative) Urine Urobilinogen Norm (Negative) mg/dL Ur Leukocyte Lucinda ase Negative (Negative) Discharge Plan Discharge Patient Disposition: Xfer Short-Term Hosp Clinical Impression: Pancreatitis Qualifiers: Chronicity: acute Pancreatitis type: other Acute pancreatitis complication: unspecified Qualified Code(s): K85.80 - Other acute pancreatitis without necrosis or infection Condition: Stable Sign Out Sign Out Data: Patient Sign Out occurred on 01/03/21 at 06:45. Patient's care was discussed, and care was transferred from to Bull Yu DO. Coding Level of Care Code ED Fire Protection Designer for g Fwd Exam Comprehensive Documented by User: Bull Yu DO 01/03/21 08:56 HPI - Abdominal Pain General: Chief Complaint: Abdominal Pain Stated Complaint: Stomach pains Time Seen by Provider: 01/02/21 18:20 PFSH ED PFSH: Medical History (Updated 01/03/21 @ 06:08 by Adolfo Zarate DO) COPD (chronic obstructive pulmonary disease) Cyst Diabetes History of myocardial infarction in adulthood Hyperlipidemia Hypertension Surgical History History of colonoscopy with polypectomy History of coronary angioplasty with insertion of stent Family History Denies family history of Anesthesia complication Bleeding disorder Social History Smoking and tobacco status: never smoked Second hand smoke exposure: No Alcohol intake: never Adopted: No Caregiver/support person: Yes Lives independently: Yes Household members: spouse Housing: House Marital status: service: Yes Current occupational status: retired Pets and animals: No History of recent travel: No Leisure activites: exercise Sexually active: No Current gender identity: Male Mayra/Roman Catholic: Buddhism Special mayra needs: No Agree to transfusion: No Financial difficulty paying for basics: Decline to Answer Course Vital Signs: Vital signs: Vital Signs Temperature 97.8 F 01/02/21 17:10 Pulse Rate 85 01/03/21 08:47 Respiratory Rate 13 01/03/21 08:47 Blood Pressure 178/69 01/03/21 08:47 Pulse Oximetry 94 01/03/21 08:47 MDM - Abdominal Pain MDM Narrative: Medical decision making narrative: Change of shift from Dr. Zarate. Reviewed the case: Discussed with hospitalist. [facility] is called back there reporting on be 12 to 24 hours before they have possible open bed. I discussed the case with Dr. Patiño who is on duty. Patient is doing well at this point I think he can be treated for his pancreatitis and have further imaging of the pancreatic cyst evaluation of the cyst could be completed in an outpatient setting after his pancreatitis has resolved. He can be admitted here for now there is no sign of dilation or any [place] on his exams. He is no sign of obstruction. Discussed this with the patient he is in agreement orders are written we will continue the antibiotics. Lab Data: Labs: Lab Results 01/02/21 01/02/21 01/02/21 Range/Units 18:00 18:35 18:35 WBC 15.1 H (4.0-10.0) 10^3/ uL RBC 5.14 (4.1-5.3) 10^6/u L Hgb 14.7 (11.7-16.6) g/dL Hct 44.9 (42.0-52.0) % MCV 87.4 (80-94) fL MCH 28.6 (28.0-34.0) pg MCHC 32.7 (30.0-36.0) g/dL RDW 14.5 (12.1-15.1) % Plt Count 300 (130-400) 10^3/c mm MPV 10.4 (7.4-10.4) fL Neut % (Auto) 75.8 % Lymph % (Auto) 13.1 % [place] % (Auto) 7.4 % Eos % (Auto) 2.7 % Baso % (Auto) 0.7 % Neut # (Auto) 11.40 H (1.8-7.7) 10^3/u L Lymph # (Auto) 2.0 (0.8-4.8) 10^3/u L [place] # (Auto) 1.1 H (0.2-0.9) 10^3/u L Eos # (Auto) 0.4 (0.0-0.8) 10^3/u L Baso # (Auto) 0.1 (0.0-0.1) 10^3/u L Nucleated RBC % (a uto) 0 % Nucleated RBCs # 0.0 /100WBC PT (12.1-14.9) SECO NDS INR (0.8-1.2) Sodium 135 L (136-145) mmol/L Potassium 4.1 (3.5-5.1) mmol/L Chloride 97 L (98-107) mmol/L Carbon Dioxide 25 (22-29) mmol/L Anion Gap 17.1 (5-19) BUN 21 (8-23) mg/dL Creatinine 1.2 (0.7-1.2) mg/dL GFR Calculation 60.2 L (90-130) mL/min Glucose 84 (65-115) mg/dL POC Glucose (70-110) mg/dL Calculated Osmolal ity 282 L (285-295) mOsm/k g Calcium 9.8 (8.5-10.5) mg/dL Total Bilirubin 0.5 (0.15-1.2) mg/dL AST 41 H (0-40) U/L ALT 54 H (0-41) U/L Alkaline Phosphata se 80 (40-130) IU/L Troponin T Baselin e (0-15) ng/L Troponin T 120 Min [place] (0-15) ng/L Delta Troponin T (0-10) ABS# Troponin T Hi Sens 6Hr (0-15) ng/L Troponin T Hi Sens 6Hr [place] (0-12) ng/L NT-Pro-B Natriuret Pep 263 H (0-125) pg/mL Total Protein 8.0 (6.6-8.7) g/dL Albumin 4.9 (3.5-5.2) g/dL Globulin 3.1 (1.3-4.6) g/dL Triglycerides 111 (0-150) mg/dL Lipase 1546 H (13-60) U/L Urine Color (Yellow) Urine Appearance (CLEAR) Urine pH (5-7) Ur Specific Gravit y (1.005-1.030) Urine Protein (Negative) Urine Glucose (UA) (Normal) Urine Ketones (Negative) Urine Blood (Negative) Urine Nitrate (Negative) Urine Bilirubin (Negative) Urine Urobilinogen (Negative) mg/dL Ur Leukocyte Lucinda ase (Negative) 01/02/21 01/02/21 01/02/21 Range/Units 18:35 18:35 20:23 WBC (4.0-10.0) 10^3/ uL RBC (4.1-5.3) 10^6/u L Hgb (11.7-16.6) g/dL Hct (42.0-52.0) % MCV (80-94) fL MCH (28.0-34.0) pg MCHC (30.0-36.0) g/dL RDW (12.1-15.1) % Plt Count (130-400) 10^3/c mm MPV (7.4-10.4) fL Neut % (Auto) % Lymph % (Auto) % [place] % (Auto) % Eos % (Auto) % Baso % (Auto) % Neut # (Auto) (1.8-7.7) 10^3/u L Lymph # (Auto) (0.8-4.8) 10^3/u L [place] # (Auto) (0.2-0.9) 10^3/u L Eos # (Auto) (0.0-0.8) 10^3/u L Baso # (Auto) (0.0-0.1) 10^3/u L Nucleated RBC % (a uto) % Nucleated RBCs # /100WBC PT 13.20 (12.1-14.9) SECO NDS INR 0.97 (0.8-1.2) Sodium (136-145) mmol/L Potassium (3.5-5.1) mmol/L Chloride (98-107) mmol/L Carbon Dioxide (22-29) mmol/L Anion Gap (5-19) BUN (8-23) mg/dL Creatinine (0.7-1.2) mg/dL GFR Calculation (90-130) mL/min Glucose (65-115) mg/dL POC Glucose (70-110) mg/dL Calculated Osmolal ity (285-295) mOsm/k g Calcium (8.5-10.5) mg/dL Total Bilirubin (0.15-1.2) mg/dL AST (0-40) U/L ALT (0-41) U/L Alkaline Phosphata se (40-130) IU/L Troponin T Baselin e 48 H (0-15) ng/L Troponin T 120 Min [place] 43.41 H (0-15) ng/L Delta Troponin T -4.59 L (0-10) ABS# Troponin T Hi Sens 6Hr (0-15) ng/L Troponin T Hi Sens 6Hr [place] (0-12) ng/L NT-Pro-B Natriuret Pep (0-125) pg/mL Total Protein (6.6-8.7) g/dL Albumin (3.5-5.2) g/dL Globulin (1.3-4.6) g/dL Triglycerides (0-150) mg/dL Lipase (13-60) U/L Urine Color (Yellow) Urine Appearance (CLEAR) Urine pH (5-7) Ur Specific Gravit y (1.005-1.030) Urine Protein (Negative) Urine Glucose (UA) (Normal) Urine Ketones (Negative) Urine Blood (Negative) Urine Nitrate (Negative) Urine Bilirubin (Negative) Urine Urobilinogen (Negative) mg/dL Ur Leukocyte Lucinda ase (Negative) 01/02/21 01/02/21 01/03/21 Range/Units 22:14 23:56 00:56 WBC (4.0-10.0) 10^3/ uL RBC (4.1-5.3) 10^6/u L Hgb (11.7-16.6) g/dL Hct (42.0-52.0) % MCV (80-94) fL MCH (28.0-34.0) pg MCHC (30.0-36.0) g/dL RDW (12.1-15.1) % Plt Count (130-400) 10^3/c mm MPV (7.4-10.4) fL Neut % (Auto) % Lymph % (Auto) % [place] % (Auto) % Eos % (Auto) % Baso % (Auto) % Neut # (Auto) (1.8-7.7) 10^3/u L Lymph # (Auto) (0.8-4.8) 10^3/u L [place] # (Auto) (0.2-0.9) 10^3/u L Eos # (Auto) (0.0-0.8) 10^3/u L Baso # (Auto) (0.0-0.1) 10^3/u L Nucleated RBC % (a uto) % Nucleated RBCs # /100WBC PT (12.1-14.9) SECO NDS INR (0.8-1.2) Sodium (136-145) mmol/L Potassium (3.5-5.1) mmol/L Chloride (98-107) mmol/L Carbon Dioxide (22-29) mmol/L Anion Gap (5-19) BUN (8-23) mg/dL Creatinine (0.7-1.2) mg/dL GFR Calculation (90-130) mL/min Glucose (65-115) mg/dL POC Glucose 118 H (70-110) mg/dL Calculated Osmolal ity (285-295) mOsm/k g Calcium (8.5-10.5) mg/dL Total Bilirubin (0.15-1.2) mg/dL AST (0-40) U/L ALT (0-41) U/L Alkaline Phosphata se (40-130) IU/L Troponin T Baselin e (0-15) ng/L Troponin T 120 Min [place] (0-15) ng/L Delta Troponin T (0-10) ABS# Troponin T Hi Sens 6Hr 42.47 H (0-15) ng/L Troponin T Hi Sens 6Hr Delta -5.53 L (0-12) ng/L NT-Pro-B Natriuret Pep (0-125) pg/mL Total Protein (6.6-8.7) g/dL Albumin (3.5-5.2) g/dL Globulin (1.3-4.6) g/dL Triglycerides (0-150) mg/dL Lipase (13-60) U/L Urine Color Yellow (Yellow) Urine Appearance Clear (CLEAR) Urine pH 5 (5-7) Ur Specific Gravit y 1.015 (1.005-1.030) Urine Protein Neg (Negative) Urine Glucose (UA) Norm (Normal) Urine Ketones Negative (Negative) Urine Blood Neg (Negative) Urine Nitrate Negative (Negative) Urine Bilirubin Neg (Negative) Urine Urobilinogen Norm (Negative) mg/dL Ur Leukocyte Lucinda ase Negative (Negative) Discharge Plan Discharge Patient Disposition: Xfer Short-Term Hosp Clinical Impression: Pancreatitis Qualifiers: Chronicity: acute Pancreatitis type: other Acute pancreatitis complication: unspecified Qualified Code(s): K85.80 - Other acute pancreatitis without necrosis or infection Condition: Stable Sign Out Sign Out Data: Patient Sign Out occurred on 01/03/21 at 06:45. Patient's care was discussed, and care was transferred from to Bull Yu DO. Coding Level of Care Code ED Fire Protection Designer for Georges Fwd Exam Comprehensive
--- NOTE | 2021-01-02 18:30 | CTR_ITS ---
PROCEDURE INFORMATION: Exam: CT Abdomen And Pelvis With Contrast Exam date and time: 01/02/2021 7:12 PM Age: 70 years old Clinical indication: Abdominal pain; Generalized; Patient HX: C/O abd pain and distention; Additional info: General abd pain, and distention TECHNIQUE: Imaging protocol: Computed tomography of the abdomen and pelvis with contrast. Radiation optimization: All CT scans at this facility use at least one of these dose optimization techniques: automated exposure control; mA and/or kV adjustment per patient size (includes targeted exams where dose is matched to clinical indication); or iterative reconstruction. Contrast material: OMNI 300; Contrast volume: 95 ml; Contrast route: INTRAVENOUS (IV); COMPARISON: No relevant prior studies available. RADIATION DOSE METRICS: Total DLP (mGy-cm): 1804.76 FINDINGS: Lungs: Scarring and atelectasis in the lung bases. Liver: The liver is mildly enlarged and is decreased in density. No focal lesion identified. Gallbladder and bile ducts: No intrahepatic or extrahepatic biliary dilitation. No calcified stones. Pancreas: A 2.2 cm cyst in the uncinate process of the pancreas. No ductal dilatation. No surrounding inflammatory changes. Spleen: No splenomegaly or mass. Adrenal glands: Normal. Kidneys and ureters: Simple cysts in the right kidney measure up to 1 cm. Simple cysts in the left kidney measure up to 1.2 cm. No stones or hydronephrosis. Normal renal enhancement. Stomach and bowel: No evidence of obstruction. No focal bowel wall thickening or mass. No significant diverticula. Appendix: Normal appendix. Intraperitoneal space: No free air. No free fluid or evidence of abscess. Vasculature: Several arterial calcifications. Lymph nodes: No lymphadenopathy. Urinary bladder: Normal CT appearance. Reproductive: The prostate gland measures 5.3 cm in transverse dimension and contains nonspecific calcification. Bones/joints: Moderate degenerative changes of the spine. Soft tissues: Fat containing periumbilical hernia. CT/CT abdomen pelvis w con* [id number] IMPRESSION: 1. Hepatic steatosis and mild hepatomegaly. 2. A 2.2 cm cyst in the uncinate process of the pancreas may reflect a benign simple cyst or a cystic pancreatic neoplasm. This should be fully characterized with contrast-enhanced MRI or multiphase contrast-enhanced CT of the abdomen. 3. Nonspecific enlargement of the prostate gland. 4. Fat containing periumbilical hernia. COMMENTS: Consistent with the [employer]'s Incidental Findings Committee white paper (J Am Ernesto Radiol 2018): Any incidental renal lesion less than 1 cm or classified as too small to characterize, or any incidental cystic renal lesion characterized as simple-appearing, is likely benign. No follow-up imaging is recommended for these lesions per consensus recommendations based on imaging criteria. Radiation Dose CTDIVOL = (mGy): DLP = 1804.76 (mGy-cm)
[2021-01-02 18:45] LABS: Basophils # 0.1 10^3/uL (0.0-0.1); Basophils % 0.7 %; Eosinophils # 0.4 10^3/uL (0.0-0.8); Eosinophils % 2.7 %; Hematocrit 44.9 % (42.0-52.0); Hemoglobin 14.7 g/dL (11.7-16.6); Lymphocytes % 13.1 %; Mean Corpuscular HGB Conc 32.7 g/dL (30.0-36.0); Mean Corpuscular Hemoglobin 28.6 pg (28.0-34.0); Mean Corpuscular Volume 87.4 fL (80-94); Mean Platelet Volume 10.4 fL (7.4-10.4); Monocytes # 1.1 10^3/uL (0.2-0.9); Monocytes % 7.4 %; Neutrophils % 75.8 %; Nucleated Red Blood Cells % 0 %; Platelet Count 300 10^3/cmm (130-400); Red Blood Count 5.14 10^6/uL (4.1-5.3); Red Cell Distribution Width 14.5 % (12.1-15.1); White Blood Count 15.1 10^3/uL (4.0-10.0)
[2021-01-02] MEDS: metoclopramide 5 mg/mL SDV 2 mL 10 MG IVP (18:53)
[2021-01-02 19:04] LABS: Troponin(5th) Baseline 48 ng/L (0-15)
[2021-01-02 19:13] LABS: Alanine Aminotransferase 54 U/L (0-41); Albumin Level 4.9 g/dL (3.5-5.2); Alkaline Phosphatase 80 IU/L (40-130); Anion Gap 17.1 (5-19); Aspartate Amino Transferase 41 U/L (0-40); Blood Urea Nitrogen 21 mg/dL (8-23); Calcium 9.8 mg/dL (8.5-10.5); Carbon Dioxide 25 mmol/L (22-29); Chloride 97 mmol/L (98-107); Globulin 3.1 g/dL (1.3-4.6); Glomerular Filtration Rate 60.2 mL/min (90-130); Glucose 84 mg/dL (65-115); NT Pro B Type Natriuretic Pept 263 pg/mL (0-125); Osmolality Calculated 282 mOsm/kg (285-295); Potassium 4.1 mmol/L (3.5-5.1); Sodium 135 mmol/L (136-145); Total Bilirubin 0.5 mg/dL (0.15-1.2)
[2021-01-02 19:22] LABS: Lipase 1546 U/L (13-60)
[2021-01-02] MEDS: iohexol 300 mg/mL 100 mL Btl IV (19:29)
[2021-01-02 20:07] LABS: Triglycerides 111 mg/dL (0-150)
--- NOTE | 2021-01-02 20:21 | ECG_ITS ---
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 Measurements Intervals [place] Rate: 79 P: 66 [place]: 204 QRS: 70 QRSD: 159 T: 32 QT: 417 QTc: 479 Interpretive Statements SINUS RHYTHM RIGHT BUNDLE BRANCH BLOCK [120+ ms QRS DURATION, UPRIGHT V1, 40+ ms S IN I/aVL/V4/V5/V6] Compared to ECG 01/02/2021 19:03:24 First degree AV block no longer present Electronically Signed On 01-03-2021 15:37:01 CDT by Robert Fairbanks M.D. [id number]
[2021-01-02 20:46] LABS: Troponin 5 2HR 43.41 ng/L (0-15)
[2021-01-02 20:52] LABS: Troponin 5 2HR Delta -4.59 ABS# (0-10)
[2021-01-02 21:29] LABS: INR 0.97 (0.8-1.2)
[2021-01-02 22:21] LABS: Add Urine Microscopic? NO; Charge for UA Resulting for Rev
[2021-01-02 22:28] LABS: Bilirubin Urine Neg (Negative); Blood Urine Neg (Negative); Glucose Urine UA Norm (Normal); Ketones Urine Negative (Negative); Leukocyte Esterase Urine Negative (Negative); Nitrate Urine Negative (Negative); Protein Urine Neg (Negative); Specific Gravity, Urine 1.015 (1.005-1.030); Urine Appearance Clear (CLEAR); Urine Color Yellow (Yellow); Urobilinogen Urine Norm (Negative); pH Urine 5 (5-7)
[2021-01-02 23:06] VITALS: BP 147/118; PULSE 77; RESP 18; O2SAT 91
[2021-01-02] MEDS: ondansetron 2 mg/ML SDV 2 mL 4 MG IVP (23:50)
[2021-01-02 23:51] VITALS: RESP 18; O2SAT 92
[2021-01-02] MEDS: HYDROmorphone 1 mg/mL INJ 1 mL IVP (23:51)
[2021-01-02 23:55] VITALS: BP 167/62; PULSE 82; RESP 16; O2SAT 92
[2021-01-03] VITALS (22 sets, daily range): BP systolic 106–189; BP diastolic 59–89; PULSE 72–103; RESP 13–20; TEMP 37–37.1; O2SAT 86–96
[2021-01-03] LABS: Glucose Point of Care 118 mg/dL (70-110)
--- NOTE | 2021-01-03 00:21 | ECG_ITS ---
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 Measurements Intervals [place] Rate: 75 P: 55 [place]: 191 QRS: 25 QRSD: 152 T: 29 QT: 423 QTc: 475 Interpretive Statements SINUS RHYTHM INDETERMINATE AXIS RIGHT BUNDLE BRANCH BLOCK [120+ ms QRS DURATION, UPRIGHT V1, 40+ ms S IN I/aVL/V4/V5/V6] Compared to ECG 01/02/2021 21:09:33 Indeterminate axis now present Electronically Signed On 01-03-2021 15:36:28 CDT by Robert Fairbanks M.D. [id number]
[2021-01-03] MEDS: sodium chloride 0.9% 1,000 ML 150 ML IV (00:47)
[2021-01-03 01:29] LABS: Troponin 5 6HR 42.47 ng/L (0-15)
[2021-01-03 01:32] LABS: Troponin 5 6HR Delta -5.53 ng/L (0-12)
[2021-01-03] MEDS: HYDROmorphone 1 mg/mL INJ 1 mL IVP (06:40)
--- NOTE | 2021-01-03 09:38 | PM.HP ---
Providers/Chief Complaint Admitting Physician: Jim Escalante Chief Complaint: Stomach pains History of Present Illness 70-year-old male with past medical history significant for chronic obstructive pulmonary disease, hypertension, hyperlipidemia, coronary artery disease with history of PCI/CABG and diabetes mellitus who presented to the hospital with mid-epigastric pain. Patient stated that initially this started as a bloating sensation in the past few months however now has also been painful. At times pain is in mid epigastric however somewhat radiates to the right upper quadrant. Also states that it becomes worse when drinking liquids. Denies any nausea or vomiting. Denies any unexplained weight loss. No prior diagnosis of pancreatitis. Denied history of alcohol abuse. Has had a colonoscopy 10 years prior which per patient was normal. Denied chest pain or respiratory distress. Also denied fever or chills. Upon arrrival to ER his initial lab work up showed A WBC of 15.1, hemoglobin of 14.7, hematocrit of 44.9 and platelet count of 300. Sodium 135, potassium 4.1, chloride 97, bicarb 25, BUN 21 and creatinine of 1.2. Glucose of 118. AST of 41, ALT of 50 for an alkaline phosphatase of 80. troponin T - 48 -> 43.41.ProBNP 263. triglyceride 111 and alsopatient was found to have elevated lipase of 1546. urinalysis was negative. CT abdomen pelvis was then performed which showed a 2.2 cm cyst in the uncinate process of the pancreas reflective of possible benign simple cyst versus cystic pancreatic neoplasm. Also noted to have hepatic steatosis and mild hepatomegaly and nonspecific enlargement of prostate. Patient was started on IVF, IV pain medication and also started on Ertapenum. Initially planned for transfer to [facility] in [place] however due to low bed avaiablity he was admitted to [facility]. At the time of my eval patient was alert, awake, ambulating in room with out any discomfort. at bedside who assisted in HPI. Review of Systems General: Reports: 10 or more systems reviewed and unremarkable except in HPI and below Medications/Allergies Home Medications Medication Instructions Recorded Confirmed Last Taken Type amlodipine 5 mg tablet 5 mg PO DAILY@0700 02/26/20 01/02/21 01/02/21 History cetirizine 10 mg capsule 10 mg PO DAILY@1800 cap 02/26/20 01/02/21 01/01/21 History exenatide 10 mcg SUBCUT BID@0700,1800 02/26/20 01/02/21 01/02/21 History fluticasone propionate 50 2 spray INTRANASAL DAILY@0700 02/26/20 01/02/21 01/02/21 History mcg/actuation nasal spray,suspension furosemide 40 mg tablet 40 mg PO DAILY@0700 02/26/20 01/02/21 01/02/21 History glipizide 5 mg tablet 5 mg PO BID@0700,1800 02/26/20 01/02/21 01/02/21 History metformin 1,000 mg tablet 1,000 mg PO BID@0700,1800 02/26/20 01/02/21 01/02/21 History metoprolol tartrate 100 mg tablet 100 mg PO BID@0700,1800 02/26/20 01/02/21 01/02/21 History Lantus U-100 Insulin 50 unit PO BID@0700,1800 01/02/21 01/02/21 01/02/21 History Vitamin B-12 1 tab PO DAILY@0700 01/02/21 01/02/21 01/02/21 History Vitamin C 500 mg PO DAILY@0700 01/02/21 01/02/21 01/02/21 History Vitamin D3 1 tab PO DAILY@0700 01/02/21 01/02/21 01/02/21 History aspirin [Aspir-81] 81 mg PO DAILY@0700 01/02/21 01/02/21 01/02/21 History calcium carbonate [Tums] 200 mg PO QID PRN 01/02/21 01/02/21 01/02/21 History insulin aspart U-100 [Novolog 5 unit SUBCUT TID 01/02/21 01/02/21 01/02/21 History Flexpen U-100 Insulin] magnesium oxide 1 tab PO DAILY@0700 01/02/21 01/02/21 01/02/21 History simethicone [Gas-X] 80 mg PO DAILY PRN 01/02/21 01/02/21 01/02/21 History Allergies Allergy/AdvReac Type Severity Reaction Status Date / Time apricot Allergy Unknown Verified 01/02/21 17:09 Penicillins Allergy Unknown Verified 01/02/21 17:09 PFSH Acute PFSH: Medical History (Updated 01/03/21 @ 13:39 by Jim Escalante MD) COPD (chronic obstructive pulmonary disease) Cyst Diabetes History of myocardial infarction in adulthood Hyperlipidemia Hypertension Surgical History (Updated 01/03/21 @ 13:39 by Jim Escalante MD) History of colonoscopy with polypectomy History of coronary angioplasty with insertion of stent Hx of CABG Family History Denies family history of Anesthesia complication Bleeding disorder Social History Smoking and tobacco status: never smoked Second hand smoke exposure: No Alcohol intake: never Adopted: No Caregiver/support person: Yes Lives independently: Yes Household members: spouse Housing: House Marital status: service: Yes Current occupational status: retired Pets and animals: No History of recent travel: No Leisure activites: exercise Sexually active: No Current gender identity: Male Mayra/Holiness: [employer] Special mayra needs: No Agree to transfusion: No Financial difficulty paying for basics: Decline to Answer Vitals/I&O/Wt Last Vital Signs Temp 98.8 F 01/03/21 09:13 Pulse 92 01/03/21 12:57 Resp 17 01/03/21 12:57 BP 186/77 01/03/21 12:57 Pulse Ox 96 01/03/21 12:57 01/02/21 01/03/21 01/03/21 22:59 06:59 14:59 Intake Total 100 / 100 1000 / 1000 Balance 100 / 100 1000 / 1000 Weight last 48 hrs Weight 101.293 kg Physical Exam Narrative: EXAM NARRATIVE: General: Alert, Awake, oriented x 3 HEENT : Grossly unremarkable CVS: RRR, no M/R/G Chest : CTABL ABD: Tenderness to deep palpation in mid-epigastic region, Ext: No edema Data : 01/02/21 18:35 01/02/21 18:35 A&P Assessment and plan (1) Abdominal pain: Status: Acute (2) Pancreatic cyst: Status: Acute Abdominal pain due to suspected pancreatitis - Ddx - Gastroparesis, PUD, possible malignancy, chronic pancreatobiliary disease - Isolated elevation of Lipase 1546 - No radiographic evidece of pancreatitis - No gallbladder disease, hx of alcoholism and normal triglycerides - Possible consider for PUD - May need to consider EGD outpatient - Will keep NPO for now - Morphine 2 mg IV q4hr PRN for pain - Zofran PRN for nausea / Reglan - NS at 100cc/hr - Once pain improve will start to advance diet. - Check amalyase and lipase in am - Hold antibiotic - No evidence of secondary bacterial infectious - F/u on procalcitonin Pancreatic Cyst - Noted on CT abd/pelvis - 2.2 cm - R/o malignancy - Dex consider MRI - Will need GI follow up - possible EUS - CEA - WNL - CA 19-9 slightly high at 45 ( may be related to pancreatitis) Transaminitis - AST - 41, ALT 50, ALP- 80 - Due to hepatic steatosis plus above - CMP in am - Hepatitis panel in am Hypertension - Curenlty NPO - Hydralazine 4 mg IV q4hr for SBP> 160 or DBP > 90 - Resume home PO meds once on oral intake Diabetes Mellitus - Sliding scale insulin - Hold metformin - Q6hr BS checks while NPO - Change to ACHS once on oral intake Chronic obstructive pulmonary disease - No evidece of exacerbation - DuoNeb PRN Hx of CAD/PCI/CABG - Stable, continue current management GI ppx - Pepcid 20 mg IV BID DVT ppx - Lovenox 40 mg SQ daily Attestations Medical Necessity Statement*: Patient require over 2 midnights stay in hospital for evaluation and treatment of epigastric pain possible pancreatitis and work p of pancreatic cyst Time Spent in Patient Care: Greater than 35 minutes (>than 50% of time spent in counselling and/or direct pt care on unit). Coding Level of Care Code Acute Padder Cushion for Georges Sanderson Diagnoses Abdominal pain R10.9 Pancreatic cyst K86.2
--- NOTE | 2021-01-03 09:39 | PC.NURSE ---
Notified Dr Escalante that patient arrived on floor.
[2021-01-03 09:46] LABS: Glucose Point of Care 213 mg/dL (70-110)
[2021-01-03] MEDS: metoprolol tartrate 1 mg/1 mL SDV 5 mL 5 MG IV (09:59)
[2021-01-03] MEDS: sodium chloride 0.9% 1,000 ML 100 ML IV ×2 (11:00→21:09)
[2021-01-03 11:04] LABS: Glucose Point of Care 245 mg/dL (70-110)
--- NOTE | 2021-01-03 11:23 | PC.NURSE ---
Rcvd verbal order for Medium sliding scale, Q6H accu checks while patient is NPO, Hydralazine 5mg Q4H IVP if systolic is greater than 160 and diastolic is greater than 90. Morphine 2mg IVP Q4H PRN, NS 100ml/hr, Add to blood draw CEA, CA19-9 and Procount. Heating Worker put orders in as requested.
[2021-01-03] MEDS: hyDRALAzine 20 mg/mL INJ 1 mL 5 MG IVP (11:38)
[2021-01-03] MEDS: morphine 4 mg/mL SDV 1 mL 2 MG IVP ×3 (11:47→20:54)
[2021-01-03 12:14] LABS: Cancer Antigen 19 9 45.65 U/mL (0-35); Procalcitonin 0.11 ng/mL (0-0.5)
[2021-01-03 12:50] LABS: Carcinoembryonic Antigen 2.8 ng/mL (0.0-4.7)
[2021-01-03] MEDS: famotidine 20 mg/2 mL INJ IVP (14:50)
[2021-01-03] MEDS: enoxaparin 40 mg/0.4 mL Syringe SUBCUT (14:50)
[2021-01-03 16:46] LABS: Glucose Point of Care 182 mg/dL (70-110)
[2021-01-03] MEDS: ondansetron 2 mg/ML SDV 2 mL 4 MG IVP (16:52)
[2021-01-03 21:49] LABS: Glucose Point of Care 183 mg/dL (70-110)
[2021-01-04] VITALS (10 sets, daily range): BP systolic 157–199; BP diastolic 68–76; PULSE 87–115; RESP 16–22; TEMP 36.3–36.9; O2SAT 90–97; BMI 31.5
[2021-01-04] MEDS: famotidine 20 mg/2 mL INJ IVP ×2 (01:29→13:41)
[2021-01-04] MEDS: morphine 4 mg/mL SDV 1 mL 2 MG IVP ×4 (01:30→20:54)
[2021-01-04] MEDS: hyDRALAzine 20 mg/mL INJ 1 mL 5 MG IVP ×2 (01:32→08:17)
[2021-01-04] MEDS: metoprolol tartrate 1 mg/1 mL SDV 5 mL 5 MG IV (02:45)
[2021-01-04] MEDS: ondansetron 2 mg/ML SDV 2 mL 4 MG IVP (02:55)
[2021-01-04 07:02] LABS: Glucose Point of Care 255 mg/dL (70-110)
[2021-01-04] MEDS: sodium chloride 0.9% 1,000 ML 100 ML IV (07:12)
[2021-01-04 07:47] LABS: Basophils # 0.1 10^3/uL (0.0-0.1); Basophils % 0.4 %; Eosinophils % 0.1 %; Hematocrit 42.3 % (42.0-52.0); Hemoglobin 13.6 g/dL (11.7-16.6); Lymphocytes # 0.5 10^3/uL (0.8-4.8); Lymphocytes % 3.6 %; Mean Corpuscular HGB Conc 32.2 g/dL (30.0-36.0); Mean Corpuscular Hemoglobin 28.3 pg (28.0-34.0); Mean Corpuscular Volume 87.9 fL (80-94); Mean Platelet Volume 10.6 fL (7.4-10.4); Monocytes # 1.1 10^3/uL (0.2-0.9); Monocytes % 7.6 %; Neutrophils # 12.39 10^3/uL (1.8-7.7); Nucleated Red Blood Cells % 0 %; Platelet Count 256 10^3/cmm (130-400); Red Blood Count 4.81 10^6/uL (4.1-5.3); Red Cell Distribution Width 14.6 % (12.1-15.1); White Blood Count 14.1 10^3/uL (4.0-10.0)
[2021-01-04 08:12] LABS: Alanine Aminotransferase 33 U/L (0-41); Albumin Level 3.9 g/dL (3.5-5.2); Alkaline Phosphatase 76 IU/L (40-130); Anion Gap 16.5 (5-19); Aspartate Amino Transferase 25 U/L (0-40); Blood Urea Nitrogen 16 mg/dL (8-23); Calcium 8.3 mg/dL (8.5-10.5); Carbon Dioxide 22 mmol/L (22-29); Chloride 105 mmol/L (98-107); Globulin 3.4 g/dL (1.3-4.6); Glomerular Filtration Rate 74.3 mL/min (90-130); Glucose 254 mg/dL (65-115); Osmolality Calculated 298 mOsm/kg (285-295); Potassium 4.5 mmol/L (3.5-5.1); Sodium 139 mmol/L (136-145); Thyroid Stimulating Hormone 0.65 uIU/mL (0.27-4.20); Total Bilirubin 0.7 mg/dL (0.15-1.2); Total Protein 7.3 g/dL (6.6-8.7)
[2021-01-04 09:40] LABS: Lipase 7058 U/L (13-60)
--- NOTE | 2021-01-04 10:22 | PC.NURSE ---
Notified Dr Laurent that patient has some blood streaks in sputum.
[2021-01-04 10:38] LABS: Glucose Point of Care 253 mg/dL (70-110)
--- NOTE | 2021-01-04 11:12 | PC.NURSE ---
Notified Dr Laurent that patient has blood pressure of 199/75 and Hydralazine was given at 0817
[2021-01-04] MEDS: labetalol 5 mg/mL SDV 20mL 10 MG IVP (11:38)
--- NOTE | 2021-01-04 11:48 | PC.NURSE ---
Notified Dr Laurent that patient is spitting up blood.
--- NOTE | 2021-01-04 12:12 | XRR_ITS ---
PROCEDURE INFORMATION: Exam: XR Chest Exam date and time: 01/04/2021 12:24 PM Age: 70 years old Clinical indication: Dyspnea; Prior surgery; Surgery type: Open heart; Patient HX: Abdominal pain and bloating started 12/22/20 TECHNIQUE: Imaging protocol: XR of the chest. Views: 1 view. COMPARISON: No relevant prior studies available. FINDINGS: Lungs: There is right perihilar interstitial congestion seen. The left lower lobe shows volume loss with atelectasis. No consolidation. Pleural spaces: Elevated left hemidiaphragm. No pleural effusion. No pneumothorax. Heart/Mediastinum: Unremarkable. No cardiomegaly. Bones/joints: Metallic sternotomy wires are in place. XR/XR chest 1V portable [id number] IMPRESSION: 1. Low lung volumes. 2. Elevated left hemidiaphragm with atelectasis left lower lobe 3. Interstitial congestion right perihilar region. 4. Metallic sternotomy wires are in place
--- NOTE | 2021-01-04 12:14 | US_ITS ---
WS: [id number] RIGHT UPPER QUADRANT ULTRASOUND HISTORY: RUQ - pancreatitis, assess for biliary pathology COMPARISON: None available. Liver: 18.1 cm in length. Liver is enlarged and heterogeneous. Increased attenuation and poor penetra tion of the liver. Severe hepatic steatosis. The entire liver is not well imaged. Gallbladder: Normally distended gallbladder with no stones or wall thickening. CBD: 0.3 cm Pancreas: Not visualized. Right kidney: 11.2 cm in length. Normal size and echogenicity. No hydronephrosis or mass. Aorta and IVC: Unremarkable abdominal aorta and IVC. No ascites. US/US abdomen limited [id number] IMPRESSION: 1. Moderate hepatomegaly with severe hepatic steatosis. 2. Negative gallbladder. 3. No bile duct dilatation.
--- NOTE | 2021-01-04 12:15 | PC.CHAP ---
Pastoral Care Encounter/Spiritual Assessment Type of Contact [] Declined pension consultant visit [] Patient/Family/Request visit [] Outpatient visit [] Follow-up visit [] Physician referral [] Code/Alert [] Routine visit [] Staff referral [] Actively dying [] Patient sleeping [] Family support [] [] Out of room [] Palliative care [] [] Receiving care in room [] Pre-surgical visit [] Trauma [] Long length of stay [] ICU visit [] Other: Relational/Emotional Strength [] Patient feels connected with others/family/visitors/staff [] Distress [] Loneliness/isolation [] Abandonment Spirituality of Patient [x] Person of Mayra [x] Attends Congregation of their Mayra [x] Believes in Prayer [] Reads Bible or Anglican materials [] There are Spiritual issues to be addressed Matte Cutter Interventions [x] Prayer [] Active listening [] Non-anxious presence [] Spiritual/emotional support [] Crisis/trauma care [] Spiritual counseling [] Bereavement support [] Provided bereavement packet [] Provided Bible/devotional materials [] Provided toy/stuffed animal, coloring book to patient or family member [] Provided Communion [] Anointing/[place] [] Salvation [] Completed spiritual assessment [] Other: Impact on Illness or Injury [] Angry [] Fearful [] Anxious [] Often cries [] Exhaustion [] Unable to work [] Unable to attend temple [] Unable to walk/stand [] Unable to read [] Unable to drive [] Unable to eat/drink [] Unable to sleep [] Unable to be with family [] Patient intubated [] Other: Summary Time spent with patient 10 min
[2021-01-04] MEDS: enoxaparin 40 mg/0.4 mL Syringe SUBCUT (13:41)
[2021-01-04] MEDS: FUROsemide 10 mg/mL SDV 2mL 20 MG IVP (13:41)
[2021-01-04 16:50] LABS: Glucose Point of Care 226 mg/dL (70-110)
--- NOTE | 2021-01-04 20:36 | PM.PN ---
Subjective Subjective: Interval history: He is having some nausea, some vague abdominal discomfort in the mid to upper abdomen, at the same time reports experiencing hunger pains. Denies chest pain or pressure. No vomiting. Requests to have ice chips. He has been coughing up red-tinged thin sputum. Feels like today he has been having to work somewhat more on his breathing. Vitals/I&O/Wt Last Vital Signs Temp 98.2 F 01/04/21 19:31 Pulse 115 H 01/04/21 19:31 Resp 20 H 01/04/21 19:31 BP 177/74 01/04/21 19:31 Pulse Ox 92 01/04/21 19:31 01/04/21 01/04/21 01/04/21 06:59 14:59 22:59 Intake Total 1000 / 1000 1000 / 2000 Output Total 250 / 900 775 / 775 500 / 1275 Balance -250 / 1100 225 / 225 500 / 725 Weight last 48 hrs Weight 102.654 kg Physical Exam Const: COMMON NORMALS: no acute distress and patient oriented x3 NUTRITIONAL APPEARANCE: obese HENMT: COMMON NORMALS: oropharynx normal Neck/C-Spine: COMMON NORMALS: no JVD Resp: COMMON NORMALS: normal respiratory effort and clear to auscultation bilaterally AUSCULTATION: clear to auscultation bilaterally Cardio: COMMON NORMALS: no JVD, regular rhythm, S1 normal heart sound present, S2 normal heart sound present and No murmurs present (Cardio) RHYTHM: regular rhythm HEART SOUNDS: S1 normal heart sound present and S2 normal heart sound present GI: COMMON NORMALS: Normal to inspection, nondistended, normoactive bowel sounds present and Soft to palpation PALPATION: Yes Soft to palpation and Yes Tenderness to palpation present (GI) (mid to upper abdomen) Extremity: COMMON NORMALS: no joint enlargement and no pedal edema Neuro: COMMON NORMALS: patient oriented x3 and moves all extremities Skin: COMMON NORMALS: no rashes or lesions noted GENERAL SKIN EXAM: no rashes or lesions noted Data : 01/04/21 07:31 01/04/21 07:31 A&P Assessment and plan (1) Abdominal pain: Status: Acute (2) Pancreatic cyst: Status: Acute Acute pancreatitis: Lipase up higher today up to 7000. Discussed with him and his spouse. We discussed additionally ultrasound of right upper quadrant which does not appear to show any obstructive biliary disease. We are to focus on his blood pressure due to hypertensive urgency today, as well as more difficulty breathing, some hemoptysis. Once this is under better control we will go ahead and request additional assessment by MRCP depending on lipase levels tomorrow morning. He is hungry at the same time, wants to try ice chips. Advanced diet trial. He knows to be cautious and to discontinue in case of any worsening abdominal pain, vomiting etc. Discontinue IV fluids due to fluid overload. 20 mg IV Lasix x1. Fluid overload: Has been having to work somewhat more today, thin pinkish frothy sputum. DC IV fluid. 1 dose Lasix 20 mg IV. Chest x-ray with interstitial congestion, more in the right perihilar region. Volume loss, atelectasis on the left. Request incentive spirometry. Continue to monitor condition. Low threshold to add back antibiotics in case of suggestion of pulmonary infection. We will also switch away from Lovenox to lower dose heparin at 5000 units subcutaneously every 12 hours. Monitor for any worsening of hemoptysis. Monitor hemoglobin. Pancreatic Cyst: This will need additional assessment to rule out malignancy and other causes as discussed with him and his . They are also agreeable to follow-up with gastroenterology. If blood pressure, oxygenation allow, possible MRCP tomorrow. - Noted on CT abd/pelvis - 2.2 cm - Will need GI follow up - possible EUS - CEA - WNL - CA 19-9 slightly high at 45 ( may be related to pancreatitis) Transaminitis: Resolved. Quite significant hepatic steatosis, hepatomegaly on ultrasound. Hypertension: Hypertensive urgency today, given additional hydralazine, labetalol. Blood pressure improved. For now Continues n.p.o. with ice chips only. Continue as needed hydralazine. Discontinue IV fluid. Diabetes Mellitus: - Sliding scale insulin - Hold metformin - Q6hr BS checks while NPO - Change to ACHS once on oral intake Chronic obstructive pulmonary disease: He and state has not had formal diagnosis. In fact is not sure that he has COPD in the first place. History of smoking over 30 years ago. Reports has had a pulmonary function test sometime in the past. May need follow-up if this was long ago. - No evidece of exacerbation - DuoNeb PRN Hx of CAD/PCI/CABG - Stable, continue current management GI ppx - Pepcid 20 mg IV BID Attestations Medical Necessity Statement*: Continue admission for assessment management of acute pancreatitis, hypertensive urgency, fluid overload, monitoring of hemoptysis. Coding Level of Care Code Acute Seismograph Computer for Chg Fwd Diagnoses Abdominal pain R10.9 Pancreatic cyst K86.2
[2021-01-04 20:59] LABS: Glucose Point of Care 181 mg/dL (70-110)
[2021-01-05] VITALS (8 sets, daily range): BP systolic 147–164; BP diastolic 56–75; PULSE 100–110; RESP 17–20; TEMP 36.7–38.1; O2SAT 90–92
[2021-01-05 00:33] LABS: Glucose Point of Care 154 mg/dL (70-110)
[2021-01-05] MEDS: famotidine 20 mg/2 mL INJ IVP ×2 (01:21→14:07)
[2021-01-05] MEDS: morphine 4 mg/mL SDV 1 mL 2 MG IVP (01:25)
[2021-01-05 06:21] LABS: Basophils % 0.2 %; Eosinophils % 0.1 %; Hematocrit 41.9 % (42.0-52.0); Hemoglobin 13.5 g/dL (11.7-16.6); Lymphocytes # 0.6 10^3/uL (0.8-4.8); Lymphocytes % 3.9 %; Mean Corpuscular HGB Conc 32.2 g/dL (30.0-36.0); Mean Corpuscular Hemoglobin 28.5 pg (28.0-34.0); Mean Corpuscular Volume 88.4 fL (80-94); Mean Platelet Volume 10.9 fL (7.4-10.4); Monocytes # 1.4 10^3/uL (0.2-0.9); Monocytes % 8.6 %; Neutrophils # 13.88 10^3/uL (1.8-7.7); Neutrophils % 86.5 %; Nucleated Red Blood Cells % 0 %; Platelet Count 245 10^3/cmm (130-400); Red Blood Count 4.74 10^6/uL (4.1-5.3); Red Cell Distribution Width 14.9 % (12.1-15.1)
[2021-01-05 06:36] LABS: Alanine Aminotransferase 25 U/L (0-41); Albumin Level 3.7 g/dL (3.5-5.2); Alkaline Phosphatase 73 IU/L (40-130); Aspartate Amino Transferase 31 U/L (0-40); Blood Urea Nitrogen 18 mg/dL (8-23); Calcium 8.3 mg/dL (8.5-10.5); Carbon Dioxide 24 mmol/L (22-29); Chloride 105 mmol/L (98-107); Globulin 3.3 g/dL (1.3-4.6); Glomerular Filtration Rate 60.2 mL/min (90-130); Glucose 191 mg/dL (65-115); Osmolality Calculated 299 mOsm/kg (285-295); Sodium 141 mmol/L (136-145); Total Bilirubin 0.8 mg/dL (0.15-1.2)
[2021-01-05 06:37] LABS: Glucose Point of Care 174 mg/dL (70-110)
[2021-01-05 06:45] LABS: Lipase 955 U/L (13-60)
--- NOTE | 2021-01-05 08:37 | PC.NURSE ---
Patient scheduled for MRI, fiction and nonfiction writer prose went to patient with MRI screening and patient said I was told by my heart surgeon that I am not to have MRI on chest because it will rip out metal around by heart. Patient refuses MRI. Chain Saw Mechanic notified MRI and they suggested CT. Chain Saw Mechanic notified Dr Laurent.
[2021-01-05 10:35] LABS: Glucose Point of Care 220 mg/dL (70-110)
--- NOTE | 2021-01-05 11:05 | PC.NURSE ---
Rcvd verbal order from Dr Laurent for clear liquid diet. customs entry writer put order in.
[2021-01-05] MEDS: heparin 5,000 unit/mL INJ 1 mL 5000 UNIT SUBCUT (12:29)
[2021-01-05] MEDS: levofloxacin-dextrose 5 % 750 MG/150 ML PREMIX 100 MG IV (14:07)
--- NOTE | 2021-01-05 14:30 | PC.NURSE ---
notified Dr Laurent that patient tolerated clear liquids well for lunch. Dr Laurent said we can try a GI soft diet if patient wants too. Power Reactor Operator talked to patient. Patient said he would like to stay on clears for supper and advance in the morning for breakfast. He said he just don't want to plascencia it. Power Reactor Operator notified Dr Laurent
[2021-01-05 17:01] LABS: Glucose Point of Care 196 mg/dL (70-110)
--- NOTE | 2021-01-05 17:12 | PC.NURSE ---
patient's brought patient's home med Proair and requested and Oxymask because his nose is clogged. Notified Dr Laurent. Per Dr [place], ok for patient to have oxymask and ok for patient to take home med Proair. Pillowcase Cutter entered nonformulary order and sent med to pharmacy.
--- NOTE | 2021-01-05 18:34 | PM.PN ---
Subjective Subjective: Interval history: Today he is feeling somewhat better. He is willing to trial clear liquids. He is still having cough productive of phlegm. Overnight was reported to have decrease in oxygen saturation after receiving pain medication. He declined to have MRCP today as was told reportedly by his cardiothoracic surgery to never have MRI, although he and his have been looking for contact to the physician, appears this was about 20 years ago in [facility] [place]. They will try to find contact information. Vitals/I&O/Wt Last Vital Signs Temp 98.0 F 01/05/21 15:48 Pulse 100 01/05/21 15:33 Resp 20 H 01/05/21 15:33 BP 150/64 01/05/21 15:33 Pulse Ox 92 01/05/21 15:33 01/05/21 01/05/21 01/05/21 06:59 14:59 22:59 Intake Total 300 / 2300 240 / 240 510 / 750 Output Total 750 / 2025 600 / 600 Balance -450 / 275 240 / 240 -90 / 150 Weight last 48 hrs Weight 100.244 kg Weight 102.654 kg Physical Exam Const: COMMON NORMALS: no acute distress and patient oriented x3 NUTRITIONAL APPEARANCE: obese HENMT: COMMON NORMALS: oropharynx normal Neck/C-Spine: COMMON NORMALS: no JVD Chest: OTHER: Old sternotomy scar. Resp: COMMON NORMALS: normal respiratory effort and clear to auscultation bilaterally AUSCULTATION: clear to auscultation bilaterally Cardio: COMMON NORMALS: no JVD, regular rhythm, S1 normal heart sound present, S2 normal heart sound present and No murmurs present (Cardio) RHYTHM: regular rhythm HEART SOUNDS: S1 normal heart sound present and S2 normal heart sound present GI: COMMON NORMALS: Normal to inspection, nondistended, normoactive bowel sounds present and Soft to palpation PALPATION: Yes Soft to palpation and Yes Tenderness to palpation present (GI) (mid to upper abdomen) Extremity: COMMON NORMALS: no joint enlargement and no pedal edema Neuro: COMMON NORMALS: patient oriented x3 and moves all extremities Skin: COMMON NORMALS: no rashes or lesions noted GENERAL SKIN EXAM: no rashes or lesions noted Data : 01/05/21 05:40 01/05/21 05:40 Micro: Microbiology 01/05/21 10:42 Gram Stain - Final Sputum - Expectorated Sputum 01/05/21 14:21 Blood Culture - Preliminary Blood SPECIMEN COLLECTED 01/05/21 14:15 Blood Culture - Preliminary Blood SPECIMEN COLLECTED A&P Assessment and plan (1) Pneumonia: Status: Acute (2) Abdominal pain: Status: Acute (3) Pancreatic cyst: Status: Acute Pneumonia: Appears he may have community-acquired pneumonia with persistent cough, productive of phlegm, with some left lower lobe small effusion, per discussion with radiology too small to try for thoracentesis. Possible infiltrate in the right perihilar area. Start Levaquin. Requested blood culture for possibility of sepsis with persistent leukocytosis, today WBC count worse up to 16,000, sinus tachycardia low 100s. Discussed also again regarding pancreatic cyst. No visualized surrounding signs of inflammation to suggest local infection. Acute pancreatitis: Right upper quadrant without signs of biliary obstruction. Lipase today down to 955. Symptomatically he appears to be improving. Trial of clear liquids. Declined MRCP. Consider additional follow-up with CT scan, referral to gastroenterology to follow-up regarding both unexplained pancreatitis, as well as pancreatic cyst. Fluid overload: Received 1 dose of Lasix. No additional IV fluids. Trial of clear liquids. Monitor volume status, oxygenation. Pancreatic Cyst: As above. Declines MRCP, states was told could not have MRI after his cardiac surgery. We will try to request medical records, although appears this was over 20 years ago. - Noted on CT abd/pelvis - 2.2 cm - Will need GI follow up - possible EUS - CEA - WNL - CA 19-9 slightly high at 45 ( may be related to pancreatitis) Transaminitis: Resolved. Quite significant hepatic steatosis, hepatomegaly on ultrasound. Hypertension: Improved. Monitor. Polydipsia: Reports at home he drinks about 8 cups of water daily. Also urinates quite a bit. Feels that urination comes after drinking water. Discussed with him to avoid polydipsia intentionally. To drink when he is thirsty. To monitor whether there is any persistence of polyuria, which may at that point require additional evaluation by his primary provider. He verbalized understanding. Diabetes Mellitus: - Sliding scale insulin - Hold metformin - Q6hr BS checks while NPO - Change to ACHS once on oral intake Chronic obstructive pulmonary disease: He and state has not had formal diagnosis. In fact is not sure that he has COPD in the first place. History of smoking over 30 years ago. Reports has had a pulmonary function test sometime in the past. May need follow-up if this was long ago. - No evidece of exacerbation - DuoNeb PRN Hx of CAD/PCI/CABG - Stable, continue current management GI ppx - Pepcid 20 mg IV BID Attestations Medical Necessity Statement*: Continue admission for assessment of management of community-acquired pneumonia, possible sepsis, acute pancreatitis with an identified pancreatic cyst. Coding Level of Care Code Acute Associate Sales Representative for [facility] Fwd Diagnoses Pneumonia J18.9 Abdominal pain R10.9 Pancreatic cyst K86.2
[2021-01-05 20:21] LABS: Glucose Point of Care 162 mg/dL (70-110)
[2021-01-06 00:18] VITALS: BP 146/68; PULSE 105; RESP 18; TEMP 36.7; O2SAT 92
[2021-01-06] MEDS: famotidine 20 mg/2 mL INJ IVP ×2 (00:57→14:47)
[2021-01-06] MEDS: heparin 5,000 unit/mL INJ 1 mL 5000 UNIT SUBCUT ×2 (01:05→14:43)
[2021-01-06 04:58] VITALS: BP 133/63; PULSE 100; RESP 17; TEMP 36.6; O2SAT 93
[2021-01-06 06:21] LABS: Basophils # 0.1 10^3/uL (0.0-0.1); Basophils % 0.5 %; Eosinophils # 0.2 10^3/uL (0.0-0.8); Eosinophils % 1.1 %; Hematocrit 39.9 % (42.0-52.0); Lymphocytes # 0.8 10^3/uL (0.8-4.8); Lymphocytes % 5.6 %; Mean Corpuscular HGB Conc 32.6 g/dL (30.0-36.0); Mean Corpuscular Hemoglobin 28.4 pg (28.0-34.0); Mean Corpuscular Volume 87.3 fL (80-94); Monocytes # 1.2 10^3/uL (0.2-0.9); Monocytes % 8.5 %; Neutrophils # 11.75 10^3/uL (1.8-7.7); Neutrophils % 83.8 %; Nucleated Red Blood Cells % 0 %; Platelet Count 217 10^3/cmm (130-400); Red Blood Count 4.57 10^6/uL (4.1-5.3); Red Cell Distribution Width 14.8 % (12.1-15.1)
[2021-01-06 06:36] LABS: Alanine Aminotransferase 31 U/L (0-41); Albumin Level 3.3 g/dL (3.5-5.2); Alkaline Phosphatase 90 IU/L (40-130); Anion Gap 15.7 (5-19); Aspartate Amino Transferase 41 U/L (0-40); Blood Urea Nitrogen 21 mg/dL (8-23); Carbon Dioxide 22 mmol/L (22-29); Chloride 102 mmol/L (98-107); Globulin 3.3 g/dL (1.3-4.6); Glomerular Filtration Rate 60.2 mL/min (90-130); Glucose 202 mg/dL (65-115); Lipase 120 U/L (13-60); Osmolality Calculated 291 mOsm/kg (285-295); Potassium 3.7 mmol/L (3.5-5.1); Sodium 136 mmol/L (136-145); Total Bilirubin 1.3 mg/dL (0.15-1.2); Total Protein 6.6 g/dL (6.6-8.7)
[2021-01-06 06:46] LABS: Glucose Point of Care 190 mg/dL (70-110)
[2021-01-06 06:55] VITALS: BP 156/72; PULSE 97; RESP 18; TEMP 37.6; O2SAT 92
[2021-01-06 10:19] LABS: Glucose Point of Care 236 mg/dL (70-110)
[2021-01-06 10:28] VITALS: BP 166/74; PULSE 106; RESP 18; TEMP 37.6; O2SAT 90
[2021-01-06] MEDS: amlodipine 5 mg Tablet PO (10:34)
[2021-01-06] MEDS: metoprolol tartrate 50 mg Tablet PO ×2 (10:34→17:41)
[2021-01-06] MEDS: levofloxacin-dextrose 5 % 750 MG/150 ML PREMIX 100 MG IV (14:50)
[2021-01-06 15:17] VITALS: BP 163/77; PULSE 96; RESP 17; TEMP 36.8; O2SAT 91
--- NOTE | 2021-01-06 15:39 | PC.SOCIAL ---
*IMM UPDATE* Gave patient IMM update, provided copy of page 2 of IMM. Verbalized understanding. 01/06/21 @ 1110 Initialed,dated, timed and placed in chart.
[2021-01-06 16:22] LABS: Glucose Point of Care 197 mg/dL (70-110)
--- NOTE | 2021-01-06 18:29 | P.PN_ITS ---
Subjective Subjective: Interval history: He is still requiring oxygen, whereas normally does not. Limited reserve with exertion, feels generally weak, easily fatigable. Still cough, but little bit better today. Hemoptysis appears resolving. No chest pain. Hungry, wants to advance diet. Vitals/I&O/Wt Last Vital Signs Temp 98.3 F 01/06/21 15:17 Pulse 96 01/06/21 15:17 Resp 17 01/06/21 15:17 BP 163/77 01/06/21 15:17 Pulse Ox 91 01/06/21 15:17 01/06/21 01/06/21 01/06/21 06:59 14:59 22:59 Intake Total 240 / 990 240 / 240 390 / 630 Output Total 600 / 1200 Balance -360 / -210 240 / 240 390 / 630 Weight last 48 hrs Weight 100.743 kg Weight 100.244 kg Physical Exam Const: COMMON NORMALS: no acute distress and patient oriented x3 NUTRITIONAL APPEARANCE: obese HENMT: COMMON NORMALS: oropharynx normal Neck/C-Spine: COMMON NORMALS: no JVD Chest: OTHER: Old sternotomy scar. Resp: COMMON NORMALS: normal respiratory effort and clear to auscultation bilaterally AUSCULTATION: clear to auscultation bilaterally Cardio: COMMON NORMALS: no JVD, regular rhythm, S1 normal heart sound present, S2 normal heart sound present and No murmurs present (Cardio) RHYTHM: regular rhythm HEART SOUNDS: S1 normal heart sound present and S2 normal heart sound present GI: COMMON NORMALS: Normal to inspection, nondistended, normoactive bowel sounds present and Soft to palpation PALPATION: Yes Soft to palpation and Yes Tenderness to palpation present (GI) (mid to upper abdomen) Extremity: COMMON NORMALS: no joint enlargement and no pedal edema Neuro: COMMON NORMALS: patient oriented x3 and moves all extremities Skin: COMMON NORMALS: no rashes or lesions noted GENERAL SKIN EXAM: no rashes or lesions noted Data : 01/06/21 05:47 01/06/21 05:47 Micro: Microbiology 01/05/21 14:21 Blood Culture - Preliminary Blood NEGATIVE TO DATE 01/05/21 14:15 Blood Culture - Preliminary Blood NEGATIVE TO DATE 01/05/21 10:42 Gram Stain - Final Sputum - Expectorated Sputum Sputum Culture - Preliminary A&P Assessment and plan (1) Pneumonia: Status: Acute (2) Abdominal pain: Status: Acute (3) Pancreatic cyst: Status: Acute Pneumonia: Persistent hypoxia, cough, sepsis appears to be improving, with leukocytosis down to 14,000. Improvement in tachycardia. Blood pressure stable. We will continue Levaquin at this time. Continue to monitor for persistent improvement. Discussed with him in case needing some oxygen prior to discharge we may arrange this for him while he is recovering. Follow-up cultures. Acute pancreatitis: Lipase continues to trend down. Abdominal discomfort better. He is hungry, and asked to advance diet, so we will trial consistent carb diet. Symptomatically he appears to be improving. Declined MRCP. Consider additional follow-up with CT scan, referral to gastroenterology to follow-up regarding both unexplained pancreatitis, as well as pancreatic cyst. Fluid overload: Received Lasix. Improved. Avoid IV fluids. Monitor. Pancreatic Cyst: As above. Declines MRCP, states was told could not have MRI after his cardiac surgery. We will try to request medical records, although appears this was over 20 years ago. - Noted on CT abd/pelvis - 2.2 cm - Will need GI follow up - possible EUS - CEA - WNL - CA 19-9 slightly high at 45 ( may be related to pancreatitis) Transaminitis: Improved. Quite significant hepatic steatosis, hepatomegaly on ultrasound. Hypertension: Improved. Monitor. Polydipsia: Reports at home he drinks about 8 cups of water daily. Also urinates quite a bit. Feels that urination comes after drinking water. Discussed with him to avoid polydipsia intentionally. To drink when he is thirsty. To monitor whether there is any persistence of polyuria, which may at that point require additional evaluation by his primary provider. He verbalized understanding. Diabetes Mellitus: - Sliding scale insulin - Hold metformin - Q6hr BS checks while NPO - Change to ACHS once on oral intake Chronic obstructive pulmonary disease: He and state has not had formal diagnosis. In fact is not sure that he has COPD in the first place. History of smoking over 30 years ago. Reports has had a pulmonary function test sometime in the past. May need follow-up if this was long ago. - No evidece of exacerbation - DuoNeb PRN Hx of CAD/PCI/CABG - Stable, continue current management GI ppx - Pepcid 20 mg IV BID Attestations Medical Necessity Statement*: Continue admission for assessment management of improving sepsis, pneumonia, resolving acute pancreatitis, disposition planning. Coding Level of Care Code Acute Broadcast Maintenance Technician for g Fwd Diagnoses Pneumonia J18.9 Abdominal pain R10.9 Pancreatic cyst K86.2
[2021-01-06 20:00] VITALS: BP 140/65; PULSE 92; RESP 19; TEMP 38.4; O2SAT 90
[2021-01-06 20:55] LABS: Glucose Point of Care 192 mg/dL (70-110)
[2021-01-06] MEDS: insulin glargine 100 units/1 mL 20 UNIT SUBCUT (21:07)
[2021-01-06] MEDS: fluticasone nasal spray 16gm Btl 2 SPRAY INTRANASAL (21:12)
[2021-01-07] VITALS (10 sets, daily range): BP systolic 114–159; BP diastolic 55–80; PULSE 84–104; RESP 14–22; TEMP 36.3–37.6; O2SAT 84–98
[2021-01-07] MEDS: heparin 5,000 unit/mL INJ 1 mL 5000 UNIT SUBCUT ×2 (00:53→14:24)
[2021-01-07] MEDS: famotidine 20 mg/2 mL INJ IVP (00:53)
[2021-01-07 06:32] LABS: Basophils % 0.3 %; Eosinophils # 0.5 10^3/uL (0.0-0.8); Eosinophils % 4.4 %; Hematocrit 38.6 % (42.0-52.0); Hemoglobin 12.6 g/dL (11.7-16.6); Lymphocytes # 1.1 10^3/uL (0.8-4.8); Lymphocytes % 8.7 %; Mean Corpuscular HGB Conc 32.6 g/dL (30.0-36.0); Mean Corpuscular Hemoglobin 28.6 pg (28.0-34.0); Mean Corpuscular Volume 87.7 fL (80-94); Mean Platelet Volume 10.9 fL (7.4-10.4); Monocytes # 1.1 10^3/uL (0.2-0.9); Monocytes % 9.4 %; Neutrophils # 9.31 10^3/uL (1.8-7.7); Neutrophils % 76.5 %; Nucleated Red Blood Cells % 0 %; Platelet Count 239 10^3/cmm (130-400); Red Cell Distribution Width 14.8 % (12.1-15.1); White Blood Count 12.2 10^3/uL (4.0-10.0)
[2021-01-07 06:56] LABS: Lipase 87 U/L (13-60)
[2021-01-07 06:59] LABS: Alanine Aminotransferase 56 U/L (0-41); Albumin Level 3.4 g/dL (3.5-5.2); Alkaline Phosphatase 87 IU/L (40-130); Anion Gap 17.5 (5-19); Aspartate Amino Transferase 61 U/L (0-40); Blood Urea Nitrogen 26 mg/dL (8-23); Carbon Dioxide 22 mmol/L (22-29); Chloride 99 mmol/L (98-107); Globulin 3.4 g/dL (1.3-4.6); Glomerular Filtration Rate 66.6 mL/min (90-130); Glucose 141 mg/dL (65-115); Osmolality Calculated 287 mOsm/kg (285-295); Potassium 3.5 mmol/L (3.5-5.1); Sodium 135 mmol/L (136-145); Total Bilirubin 1.3 mg/dL (0.15-1.2); Total Protein 6.8 g/dL (6.6-8.7)
[2021-01-07] MEDS: metoprolol tartrate 50 mg Tablet PO ×2 (07:26→17:27)
[2021-01-07] MEDS: amlodipine 5 mg Tablet PO (07:26)
[2021-01-07] MEDS: aspirin 81 mg EC Tablet PO (09:23)
[2021-01-07] MEDS: fluticasone nasal spray 16gm Btl 2 SPRAY INTRANASAL ×2 (09:25→21:42)
--- NOTE | 2021-01-07 12:44 | USCV_ITS ---
Torey Kaba Age: 70 Gender: M : 1950 Exam Date: 01/07/2021 15:25 Ordering Phys: Wilfrid Laurent MD Technologist: Exam Location: [facility] [place] Indication: hx cad per eff BP: 152 / 72 HR: 87 Rhythm: Sinus Technical Quality: Fair MEASUREMENTS (Male / Female) Normal Values 2D ECHO LV Diastolic Diameter PLAX 5.8 cm 4.2 - 5.9 / 3.9 - 5.3 cm LV Systolic Diameter PLAX 4.4 cm IVS Diastolic Thickness 1.1 cm 0.6 - 1.0 / 0.6 - 0.9 cm IVS Systolic Thickness 1.3 cm LVPW Diastolic Thickness 1.1 cm 0.6 - 1.0 / 0.6 - 0.9 cm LVPW Systolic Thickness 1.4 cm LVOT Diameter 2.0 cm LV Ejection Fraction 2D Teich 46.4 % LV Ejection Fraction MOD 2C 50.2 % LV Ejection Fraction 2C AL 48.4 % LA Diameter 4.4 cm LA Width 4.9 cm LA Height 4.8 cm RA Width 4.0 cm RA Height 5.0 cm Aorta at Sinotubular Diameter 2.5 cm M-MODE LV Diastolic Diameter MM 6.4 cm 4.2 - 5.9 / 3.9 - 5.3 cm LV Systolic Diameter MM 4.6 cm LV Ejection Fraction MM Teich 51.9 % IVS Diastolic Thickness MM 1.1 cm 0.6 - 1.0 / 0.6 - 0.9 cm IVS Systolic Thickness MM 1.5 cm LVPW Diastolic Thickness MM 1.1 cm 0.6 - 1.0 / 0.6 - 0.9 cm LVPW Systolic Thickness MM 1.8 cm RV Diastolic Diameter MM 1.7 cm Aortic Annulus Diameter 3.6 cm LA Ao Ratio MM 1.4 MV E Point Septal Separation 1.9 cm DOPPLER AV Peak Velocity 169.0 cm/s LVOT Peak Velocity 70.0 cm/s AV Area Cont Eq vti 1.3 cm squared AV Area Cont Eq pk 1.4 cm squared MV Area PHT 5.0 cm squared Mitral E to A Ratio 1.1 MV E' Velocity 95.0 cm/s TR Peak Velocity 151.0 cm/s TR Peak Gradient 9.1 mmHg TV Peak E Velocity 98.0 cm/s Right Atrial Pressure 3.0 mmHg Pulmonary Artery Systolic Pressu 12.1 mmHg PV Peak Velocity 88.0 cm/s FINDINGS Left Ventricle Mild diffuse hypokinesia of the left ventricle with ejection fraction 50%. Mildly dilated LV cavity Right Ventricle The right ventricle is normal in size and function. Right Atrium The right atrium is normal in size. Left Atrium Mildly increased left atrial size. Mitral Valve Thickened mitral valve. Mild to moderate mitral valve regurgitation. Mild mitral annular calcification. Aortic Valve Thickened aortic valve. Tricuspid Valve No gross abnormalities noted Pulmonic Valve Mild pulmonary valve regurgitation. Pericardium Normal pericardium without effusion. Aorta Normal ascending aorta dimension. CONCLUSIONS Mild diffuse hypokinesia of the left ventricle with ejection fraction 50%. Mildly dilated LV cavity. Mildly increased left atrial size. Mild to moderate mitral valve regurgitation. Mild mitral annular calcification. Thickened aortic and mitral valves. Mild pulmonary valve regurgitation. There is no pericardial effusion. There are no intracardiac masses. Technically somewhat difficult study because of the poor ultrasonic window No previous study is available for comparison. Dr Cholo Kelsey MD FACC (Electronically Signed) Final Date: 07 January 2021 19:37 S
[2021-01-07 13:10] LABS: Glucose Point of Care 290 mg/dL (70-110)
[2021-01-07] MEDS: levofloxacin-dextrose 5 % 750 MG/150 ML PREMIX 100 MG IV (14:23)
--- NOTE | 2021-01-07 15:05 | PM.PN ---
Subjective Subjective: Interval history: Today he reports he is feeling better. Last night received Flonase which helped clear his sinuses. Reports is breathing better. Has been tolerating nasal cannula. Still coughing up some phlegm, occasionally small clots present. Today no abdominal pain or discomfort. No trouble eating, although reports appetite not the best, completing only about 30% of his meals. Vitals/I&O/Wt Last Vital Signs Temp 97.4 F L 01/07/21 12:00 Pulse 86 01/07/21 12:00 Resp 18 01/07/21 12:00 BP 114/66 01/07/21 12:00 Pulse Ox 90 01/07/21 12:00 01/07/21 01/07/21 01/07/21 06:59 14:59 22:59 Output Total 800 / 800 Balance -800 / -800 Weight last 48 hrs Weight 100.743 kg Physical Exam Const: COMMON NORMALS: no acute distress and patient oriented x3 NUTRITIONAL APPEARANCE: obese HENMT: COMMON NORMALS: oropharynx normal Neck/C-Spine: COMMON NORMALS: no JVD Chest: OTHER: Old sternotomy scar. Resp: COMMON NORMALS: normal respiratory effort and clear to auscultation bilaterally AUSCULTATION: clear to auscultation bilaterally Cardio: COMMON NORMALS: no JVD, regular rhythm, S1 normal heart sound present, S2 normal heart sound present and No murmurs present (Cardio) RHYTHM: regular rhythm HEART SOUNDS: S1 normal heart sound present and S2 normal heart sound present GI: COMMON NORMALS: Normal to inspection, nondistended, normoactive bowel sounds present and Soft to palpation PALPATION: Yes Soft to palpation and Yes Tenderness to palpation present (GI) (mid to upper abdomen) Extremity: COMMON NORMALS: no joint enlargement and no pedal edema Neuro: COMMON NORMALS: patient oriented x3 and moves all extremities Skin: COMMON NORMALS: no rashes or lesions noted GENERAL SKIN EXAM: no rashes or lesions noted Data : 01/07/21 05:30 01/07/21 05:30 Micro: Microbiology 01/05/21 10:42 Gram Stain - Final Sputum - Expectorated Sputum Sputum Culture - Final 01/05/21 14:21 Blood Culture - Preliminary Blood NEGATIVE TO DATE 01/05/21 14:15 Blood Culture - Preliminary Blood NEGATIVE TO DATE A&P Assessment and plan (1) Pneumonia: Status: Acute (2) Abdominal pain: Status: Acute (3) Pancreatic cyst: Status: Acute Pneumonia: Sepsis, improving, although again fever 101.1 yesterday. Leukocytosis 12.2, although appears to be gradually decreasing. Nasal congestion appears to have improved with Flonase. Continue. We will add breathing treatments. Discussed with him incentive spirometer, flutter valve. Aggressive pulmonary toilet. Continue Levaquin. Follow-up cultures. Given still persistent sepsis as recently as last night and getting over acute pancreatitis continue treatment in the hospital currently. Hemoptysis: Still producing small clots. No marina bleeding. Continue treatment of respiratory infection. Will need follow-up for resolution or additional evaluation if symptoms persisting. Discussed with him and his . Acute pancreatitis: Resolving. Lipase down to 87 today. Appetite is not the best but eating. No abdominal pain. Will need follow-up of cyst. Consider follow-up with CT scan. Fluid overload: Resolved. Monitor. Pancreatic Cyst: As above. Declines MRCP, states was told could not have MRI after his cardiac surgery. Placed request for medical records. - Noted on CT abd/pelvis - 2.2 cm - Will need GI follow up - possible EUS - CEA - WNL - CA 19-9 slightly high at 45 ( may be related to pancreatitis) Transaminitis: Again with some worsening. Monitor. Quite significant hepatic steatosis, hepatomegaly on ultrasound. Hypertension: Improved. Monitor. Polydipsia: Reports at home he drinks about 8 cups of water daily. Also urinates quite a bit. Feels that urination comes after drinking water. Discussed with him to avoid polydipsia intentionally. To drink when he is thirsty. To monitor whether there is any persistence of polyuria, which may at that point require additional evaluation by his primary provider. He verbalized understanding. Diabetes Mellitus: - Sliding scale insulin - Hold metformin Chronic obstructive pulmonary disease: He and state has not had formal diagnosis. In fact is not sure that he has COPD in the first place. History of smoking over 30 years ago. Reports has had a pulmonary function test sometime in the past which seems was long ago. Would benefit from follow-up study after recovers from acute illness. - No evidece of exacerbation - DuoNeb PRN Hx of CAD/PCI/CABG - Stable, continue current management GI ppx - Pepcid 20 mg IV BID Attestations Medical Necessity Statement*: Continue admission for assessment of improving sepsis, pneumonia, hemoptysis, recovering from acute pancreatitis gentleman with underlying coronary disease and other comorbidities. Coding Level of Care Code Acute Code Official for [facility] Fwd Diagnoses Pneumonia J18.9 Abdominal pain R10.9 Pancreatic cyst K86.2
[2021-01-07 17:09] LABS: Glucose Point of Care 172 mg/dL (70-110)
[2021-01-07] MEDS: famotidine 20 mg Tablet PO (17:26)
[2021-01-07 21:11] LABS: Glucose Point of Care 205 mg/dL (70-110)
[2021-01-07] MEDS: ipratropium-albuterol 3 mL Neb INHALATION (21:41)
[2021-01-07] MEDS: insulin glargine 100 units/1 mL 20 UNIT SUBCUT (21:43)
[2021-01-08] VITALS (10 sets, daily range): BP systolic 145–163; BP diastolic 71–77; PULSE 80–93; RESP 17–22; TEMP 36.1–37.7; O2SAT 90–94
[2021-01-08] MEDS: heparin 5,000 unit/mL INJ 1 mL 5000 UNIT SUBCUT ×2 (00:19→12:09)
[2021-01-08] MEDS: ipratropium-albuterol 3 mL Neb INHALATION ×2 (03:10→08:51)
--- NOTE | 2021-01-08 06:00 | XR_ITS ---
WS: [id number] Portable AP upright chest, 01/08/2021 Clinical Data: Hypoxia Comparison: Portable chest, 01/04/2021. Findings: The bilateral patchy opacities in the right lung and left lower lobe remain the same. There is slight elevation of left diaphragm and there may be a small left effusion. The heart is enlarged. Midline sternotomy sutures are present. XR/XR chest 1V portable [id number] Impression: No change in bilateral opacities and cardiomegaly.
[2021-01-08 06:04] LABS: Basophils % 0.4 %; Eosinophils # 0.6 10^3/uL (0.0-0.8); Eosinophils % 6.1 %; Hematocrit 36.1 % (42.0-52.0); Hemoglobin 11.7 g/dL (11.7-16.6); Lymphocytes # 1.1 10^3/uL (0.8-4.8); Lymphocytes % 11.1 %; Mean Corpuscular HGB Conc 32.4 g/dL (30.0-36.0); Mean Corpuscular Hemoglobin 28.4 pg (28.0-34.0); Mean Corpuscular Volume 87.6 fL (80-94); Mean Platelet Volume 10.8 fL (7.4-10.4); Neutrophils # 6.79 10^3/uL (1.8-7.7); Neutrophils % 71.9 %; Nucleated Red Blood Cells % 0 %; Platelet Count 227 10^3/cmm (130-400); Red Blood Count 4.12 10^6/uL (4.1-5.3); Red Cell Distribution Width 14.7 % (12.1-15.1); White Blood Count 9.5 10^3/uL (4.0-10.0)
[2021-01-08 06:25] LABS: Alanine Aminotransferase 87 U/L (0-41); Albumin Level 3.1 g/dL (3.5-5.2); Alkaline Phosphatase 93 IU/L (40-130); Anion Gap 17.5 (5-19); Aspartate Amino Transferase 86 U/L (0-40); Blood Urea Nitrogen 26 mg/dL (8-23); Calcium 7.8 mg/dL (8.5-10.5); Carbon Dioxide 22 mmol/L (22-29); Chloride 98 mmol/L (98-107); Globulin 3.4 g/dL (1.3-4.6); Glomerular Filtration Rate 54.9 mL/min (90-130); Glucose 171 mg/dL (65-115); Osmolality Calculated 287 mOsm/kg (285-295); Potassium 3.5 mmol/L (3.5-5.1); Sodium 134 mmol/L (136-145); Total Bilirubin 0.9 mg/dL (0.15-1.2); Total Protein 6.5 g/dL (6.6-8.7)
[2021-01-08 06:34] LABS: Lipase 97 U/L (13-60)
[2021-01-08 07:29] LABS: Glucose Point of Care 166 mg/dL (70-110)
[2021-01-08] MEDS: metoprolol tartrate 50 mg Tablet PO (08:44)
[2021-01-08] MEDS: aspirin 81 mg EC Tablet PO (08:45)
[2021-01-08] MEDS: amlodipine 5 mg Tablet PO (08:46)
[2021-01-08] MEDS: famotidine 20 mg Tablet PO (08:46)
[2021-01-08 10:06] LABS: Glucose Point of Care 328 mg/dL (70-110)
--- NOTE | 2021-01-08 13:16 | PC.CHAP ---
Pastoral Care Encounter/Spiritual Assessment Type of Contact [] Declined credit risk specialist visit [] Patient/Family/Request visit [] Outpatient visit [xx] Follow-up visit [] Physician referral [] Code/Alert [] Routine visit [] Staff referral [] Actively dying [] Patient sleeping [] Family support [] [] Out of room [] Palliative care [] [] Receiving care in room [] Pre-surgical visit [] Trauma [xx] Long length of stay [] ICU visit [] Other: Relational/Emotional Strength [] Patient feels connected with others/family/visitors/staff [] Distress [] Loneliness/isolation [] Abandonment Spirituality of Patient [xx] Person of Mayra [xx] Attends Church of their Mayra [xx] Believes in Prayer [xx] Reads Bible or Rastafarian materials [] There are Spiritual issues to be addressed Medical Insurance Coding Specialist Interventions [xx] Prayer [xx] Active listening [xx] Non-anxious presence [] Spiritual/emotional support [] Crisis/trauma care [] Spiritual counseling [] Bereavement support [] Provided bereavement packet [xx] Provided Bible/devotional materials [] Provided toy/stuffed animal, coloring book to patient or family member [] Provided Communion [] Anointing/[place] [] Salvation [] Completed spiritual assessment [] Other: Impact on Illness or Injury [] Angry [] Fearful [] Anxious [] Often cries [] Exhaustion [] Unable to work [] Unable to attend pentecostal [] Unable to walk/stand [] Unable to read [] Unable to drive [] Unable to eat/drink [] Unable to sleep [] Unable to be with family [] Patient intubated [] Other: Summary Patient's present. They wanted to visit and receive prayer for grandchildren in particular. Patient feels comfortable and content to stay in hospital as long as necessary to avoid possible need for return later for further treatment. Time spent with patient 17 minutes
--- NOTE | 2021-01-08 14:07 | P.DS_ITS ---
Discharge Providers Date of Admission: 01/03/21 07:42 Date of Discharge: January 08, 2021 Attending Provider at Admission: Jim Escalante Attending Provider at Discharge: Wilfrid Laurent Diagnoses at Discharge Discharge Diagnosis (1) Pneumonia: Status: Acute (2) Abdominal pain: Status: Acute (3) Pancreatic cyst: Status: Acute Reason for Visit Reason for Visit: Stomach pains Hospital Course Hospital Course Very pleasant 70-year-old gentleman with history of CAD, PCI/CABG, DM 2, HTN, HLD, COPD, was admitted after presenting with mid epigastric abdominal pain, bloating, with pain sometimes radiating to her right upper quadrant. On presentation with leukocytosis 15.1, hemoglobin 14.7, platelets 300. Sodium 135, potassium 4.1, chloride 97, bicarb 25, BUN 21, creatinine 1.2. Urinalysis unremarkable. Glucose 118. AST 41, ALT 50. Alk phos 80, troponin 48-43.4-42.47. NT proBNP 263. Lipase noted 1546. Triglyceride 111. Calcium 9.8. CT abdomen pelvis with noted hepatic steatosis and mild hepatomegaly, not much significant pancreatic inflammation, but with noted 2.2 cm cyst in the uncinate process which may reflect benign simple cyst or a cystic pancreatic neoplasm. This will need additional follow-up. Nonspecific enlargement of the prostate gland. Fat-containing periumbilical hernia. He was started on IV fluid, initially received dose of ertapenem. Without signs of acute necrotic pancreatitis, sepsis, antibiotic was not continued. She continued on supportive care with IV hydration, pain control, Zofran/Reglan, bowel rest. Procalcitonin was 0.11. The following day remained symptomatic, lipase increased up to 7058. CEA was checked and was normal. CA 19-9 slightly high at 45, but may be related to acute pancreatitis. Mild transaminitis on presentation, as noted, with subsequent normalization of liver parameters, but with some fluctuations, and now with some moderate increase up to 86 AST, 87 ALT, transient increase in T bili up to 1.3, persistently normal alk phos. Right upper quadrant ultrasound was obtained, showing moderate hepatomegaly with severe hepatic steatosis. Negative gallbladder. No bile duct dilation. He was continued on supportive care for acute pancreatitis. As he also does not drink alcohol, we still do not have a good cause for his acute pancreatitis. This was discussed with him and his . On review of his medications exenatide can cause pancreatitis, and so due to this he is asked to discontinue the medication. However, he will need additional work-up as to possible other underlying causes, as well as follow-up regarding pancreatic cyst. MRCP was planned, however, he declined due to being told in the past he should not be obtaining MRI as per his cardiothoracic surgeon. We requested records from [facility] where he had this performed in 2004. This will need to be followed up as MRCP may be beneficial for additional assessment of the cyst. He is asked to follow-up also with gastroenterology as with unexplained pancreatitis, unidentified cyst he may benefit from additional evaluation, possibly EUS due to noted CA 19-9 elevation. Otherwise the cyst should also be followed up for any change perhaps with repeat CT. On 01/04 he was also having some worsening shortness of breath, cough, coughing up pink frothy sputum. Suspected fluid overload. Chest x-ray showed low lung volumes, elevated left hemidiaphragm with atelectasis of left lower lobe, interstitial congestion right perihilar region. Metallic sternotomy wires. Was given a dose of Lasix. Hypoxia improved, but somewhat persisted. Symptoms improved, he was breathing easier, however, was also progressively having more cough, persistence of hemoptysis coughing up small blood clots. With worsening leukocytosis, sinus tachycardia, concern regarding sepsis secondary to pneumonia, with noted small fluid collection in left lower lobe, per discussion with radiology too small to aspirate, was started on Levaquin for antibiotic coverage. Symptoms gradually improved, with decreasing hemoptysis, cough, improvement in dyspnea, and oxygenation, although currently still requiring 2 L oxygen by nasal cannula. Leukocytosis gradually resolved, tachycardia resolved. Sepsis resolved. Sputum culture negative. Blood culture negative so far, pending final. His condition overall gradually improved, lipase subsequently continued to downtrend, and came down as low as 87 yesterday, 97 today. Subjectively he is feeling much better. Breathing easier. Ambulating in his room. Eating without problems. Creatinine noted with some fluctuation 1.1-1.2, today 1.3. Will need follow-up regarding chronic kidney disease and optimization of risk factors of CKD, CAD, etc., including diabetes, follow-up on diabetic neuropathy, HTN. He reported having some polyuria, but also polydipsia, and stating that he drinks close to about 8 cups of water per day. Discussed with him to drink only if he is thirsty. Discussed if polyuria persists may need additional evaluation. Please follow-up and reassess. Continue follow-up with nephrology as planned. He will complete antibiotic course with Levaquin for pneumonia. He is provided with incentive spirometer and flutter valve and has taken well to using them. Wean off oxygen as tolerating. Please reassess for resolution of pulmonary opacities, left lower lobe small effusion, reassess chest x-ray in 4-6 weeks for resolution. Please follow-up for complete resolution of hemoptysis. Please refer for pulmonary function test as he has COPD history reported, but denies having any recent PFT. Please follow-up regarding severe hepatic steatosis, evaluate for additional etiologies as he is a nondrinker. And he may additionally benefit from follow- up on this with gastroenterology. Please follow-up his liver parameters at next visit. Physical Exam Const: COMMON NORMALS: no acute distress, patient oriented x3 and alert GENERAL APPEARANCE: cooperative and comfortable NUTRITIONAL APPEARANCE: obese ORIENTATION/CONSCIOUSNESS: Yes awake OTHER: Continues to get stronger. Today is feeling much better. Ambulating in his room. In good spirits. Pleasant, conversant. and his 2 sons at the bedside. HENMT: COMMON NORMALS: oropharynx normal Neck/C-Spine: COMMON NORMALS: no JVD Chest: OTHER: Old sternotomy scar. Resp: COMMON NORMALS: normal respiratory effort and clear to auscultation bilaterally AUSCULTATION: clear to auscultation bilaterally Cardio: COMMON NORMALS: no JVD, regular rhythm, S1 normal heart sound present, S2 normal heart sound present and No murmurs present (Cardio) RHYTHM: regular rhythm HEART SOUNDS: S1 normal heart sound present and S2 normal heart sound present GI: COMMON NORMALS: Normal to inspection, nondistended, normoactive bowel sounds present and Soft to palpation PALPATION: Yes Soft to palpation and Yes Tenderness to palpation present (GI) (mid to upper abdomen) Extremity: COMMON NORMALS: no joint enlargement and no pedal edema Neuro: COMMON NORMALS: patient oriented x3 and moves all extremities SENSORIUM/ORIENTATION: Yes alert Skin: COMMON NORMALS: no rashes or lesions noted GENERAL SKIN EXAM: no rashes or lesions noted Discharge Data Data Completed and Pending: Completed Studies During Hospitalization Category Date Time Status CT abdomen pelvis w con* [id number] Urge nt Cat Scan 01/02/21 18:30 Completed XR chest 1V jovita ble [id number] Routine Exams 01/08/21 06:00 Completed XR chest 1V jovita ble [id number] Stat Exams 01/04/21 12:12 Completed CV echo complete* [id number] Routine Ultrasound 01/07/21 12:44 Completed US abdomen limite d [id number] Routine Ultrasound 01/04/21 12:14 Completed Pending at discharge Category Date Time Status Blood Culture Sta t Lab 01/05/21 14:21 Results Complete Blood Co unt w/Auto AM LABS Lab 01/09/21 04:00 Ordered Complete Blood Co unt w/Auto AM LABS Lab 01/10/21 04:00 Ordered Comprehensive Met abolic Panel AM LA BS Lab 01/09/21 04:00 Ordered Comprehensive Met abolic Panel AM LA BS Lab 01/10/21 04:00 Ordered Labs from last 24 hours 01/08/21 01/08/21 01/08/21 10:02 07:08 05:20 WBC RBC Hgb Hct MCV MCH MCHC RDW Plt Count MPV Neut % (Auto) Lymph % (Auto) Meeker % (Auto) Eos % (Auto) Baso % (Auto) Neut # (Auto) Lymph # (Auto) Meeker # (Auto) Eos # (Auto) Baso # (Auto) Nucleated RBC % (a uto) Nucleated RBCs # Sodium 134 L Potassium 3.5 Chloride 98 Carbon Dioxide 22 Anion Gap 17.5 BUN 26 H Creatinine 1.3 H GFR Calculation 54.9 L Glucose 171 H POC Glucose 328 H 166 H Calculated Osmolal ity 287 Calcium 7.8 L Total Bilirubin 0.9 AST 86 H ALT 87 H Alkaline Phosphata se 93 Total Protein 6.5 L Albumin 3.1 L Globulin 3.4 Lipase 01/08/21 01/08/21 01/07/21 05:20 05:20 21:06 WBC 9.5 RBC 4.12 Hgb 11.7 Hct 36.1 L MCV 87.6 MCH 28.4 MCHC 32.4 RDW 14.7 Plt Count 227 MPV 10.8 H Neut % (Auto) 71.9 Lymph % (Auto) 11.1 Meeker % (Auto) 10.0 Eos % (Auto) 6.1 Baso % (Auto) 0.4 Neut # (Auto) 6.79 Lymph # (Auto) 1.1 Meeker # (Auto) 1.0 H Eos # (Auto) 0.6 Baso # (Auto) 0.0 Nucleated RBC % (a uto) 0 Nucleated RBCs # 0.0 Sodium Potassium Chloride Carbon Dioxide Anion Gap BUN Creatinine GFR Calculation Glucose POC Glucose 205 H Calculated Osmolal ity Calcium Total Bilirubin AST ALT Alkaline Phosphata se Total Protein Albumin Globulin Lipase 97 H 01/07/21 16:40 WBC RBC Hgb Hct MCV MCH MCHC RDW Plt Count MPV Neut % (Auto) Lymph % (Auto) Meeker % (Auto) Eos % (Auto) Baso % (Auto) Neut # (Auto) Lymph # (Auto) Meeker # (Auto) Eos # (Auto) Baso # (Auto) Nucleated RBC % (a uto) Nucleated RBCs # Sodium Potassium Chloride Carbon Dioxide Anion Gap BUN Creatinine GFR Calculation Glucose POC Glucose 172 H Calculated Osmolal ity Calcium Total Bilirubin AST ALT Alkaline Phosphata se Total Protein Albumin Globulin Lipase Vitals: Last Vital Signs Temp 97.0 F L 01/08/21 11:16 Pulse 80 01/08/21 11:16 Resp 17 01/08/21 11:16 BP 161/76 01/08/21 11:16 Pulse Ox 93 01/08/21 11:16 Discharge Plan Discharge Patient Disposition: Home Condition: Stable Prescriptions: New levofloxacin 750 mg tablet 750 mg PO DAILY 5 Days Qty: 5 RF: 0 Continued amlodipine 5 mg tablet 5 mg PO DAILY@0700 RF: 0 cetirizine 10 mg capsule 10 mg PO DAILY@1800 RF: 0 fluticasone propionate [Allergy Relief (fluticasone)] 50 mcg/actuation spray,suspension 2 spray INTRANASAL DAILY@0700 RF: 0 glipizide 5 mg tablet 5 mg PO BID@0700,1800 RF: 0 metformin 1,000 mg tablet 1,000 mg PO BID@0700,1800 RF: 0 metoprolol tartrate 100 mg tablet 100 mg PO BID@0700,1800 RF: 0 Aspir-81 81 mg Tablet,Delayed Release (Dr/Ec) 81 mg PO DAILY@0700 RF: 0 Tums 200 mg calcium (500 mg) Tablet,Chewable 200 mg PO QID PRN (Reason: EXCESS GAS) RF: 0 Gas-X 80 mg Tablet,Chewable 80 mg PO DAILY PRN (Reason: EXCESS GAS) RF: 0 Novolog Flexpen U-100 Insulin 100 unit/mL (3 mL) Insulin Pen 5 unit SUBCUT TID RF: 0 Vitamin B-12 1 tab PO DAILY@0700 RF: 0 Vitamin C 500 mg PO DAILY@0700 RF: 0 Vitamin D3 1 tab PO DAILY@0700 RF: 0 magnesium oxide 1 tab PO DAILY@0700 RF: 0 Changed furosemide 40 mg tablet 40 mg PO DAILY@0700 PRN (Reason: Edema) Qty: 0 RF: 0 Lantus U-100 Insulin 25 unit PO BID@0700,1800 Qty: 0 RF: 0 Discontinued Byetta 10 mcg/dose(250 mcg/mL) 2.4 mL pen injector 10 mcg SUBCUT BID@0700,1800 RF: 0 Discharge Orders: Discharge Order (Routine); Ordered 01/08/21 Ordered By: Wilfrid Laurent Referrals: Bill Prescott DO [Emergency Department] - 4-7 days (DC clinic) Discharge Diet: Diabetic, Low Cholesterol and Low Fat Discharge Activity: Increase activity as tolerated and Oxygen as instructed Patient Instructions: Levofloxacin (By mouth), Pancreatitis (GEN), Non- Alcoholic Fatty Liver Disease (GEN), Hypertension (GEN), Pneumonia (GEN), COPD Stoplight Activity Restrictions/Additional Instructions: Please follow-up with your primary care doctor regarding pneumonia, low oxygen levels. Please have your primary doctor reassess chest x-ray to confirm resolution of pneumonia and small pleural effusion in left lower lung in 4-6 weeks. Similarly after you recover from pneumonia please have your primary doctor refer you for pulmonary function test to closer assess/formally diagnosed for possible COPD. Please also follow-up with your primary doctor regarding coughing up small amounts of blood. In case this persists despite resolution of pneumonia, please discuss referral for additional evaluation. In case you are coughing up large amounts of blood, please call 911. Please follow-up with your primary doctor regarding acute pancreatitis. This will need additional evaluation as we have not found a compelling cause. Please discontinue exenatide as this medication in some cases can cause pancreatitis. Please have your primary care doctor refer you for assessment by a director agricultural services to further explore possible underlying causes for the pancreatitis, as well as to follow-up regarding the pancreatic cyst. Have your primary care doctor or director agricultural services refer you for follow-up imaging also to exclude change in size or structure of the cyst. Please discuss also with both that CA 19-9 was noted slightly high at 45, although this was during episode of acute pancreatitis. This may need to be repeated. Please follow-up with your primary doctor regarding elevated liver parameters, AST, ALT, as well as noted severe hepatic steatosis, hepatomegaly. Please have your primary doctor perform additional evaluation as to possible causes of the hepatic steatosis, as well as monitoring for any progression to liver scarring or cirrhosis. Continue to work with your primary doctor to optimize control of diabetes, hypertension, as these conditions may contribute to the above. Discussed with your primary care doctor regarding symptoms of diabetic neuropathy. Continue to monitor glucose at home, continue insulin at home. For now your long-acting insulin dose has been decreased to 25 units, however, in case your glucose continues to rise at home, continue to increase by 2-3 units/day unless any of the glucose values during the day are below 100. In that case do not increase the dose any further. If glucose is below 100, decrease the Lantus dose by 5-10 units and continue to monitor. If glucose is below 70, do not take insulin, take sugary snacks, recheck in 15- 20 minutes. If not rising, seek medical evaluation. Please have your primary doctor follow-up your kidney function, and follow-up with the nephrology specialist as planned. Discussed with them regarding how much water you drink and in case you are having frequent urination. Avoid drinking excess water unless you are thirsty. Discharge Attestations Time Spent in Discharge Care*: greater than 30 min Quality Metrics Clinical Quality Measures During this hospital stay, did patient experience: None Coding Level of Care Code Acute Chg [facility] note Diagnoses Pneumonia J18.9 Abdominal pain R10.9 Pancreatic cyst K86.2
== END 2021-01-08 15:45 | disposition home or self-care (01) | DRG 438 ==
LOC: ER 01-03 06:45 → MEDSURG 01-03 08:32
PROVIDERS: Emergency Medicine; Nurse Practitioner Family; Admitting Provider Hospitalist; Emergency Provider Family Medicine; Visit Provider Internal Medicine
DX: K85.90 Acute pancreatitis without necrosis or infection, unspecified (principal); A41.9 Sepsis, unspecified organism; J18.9 Pneumonia, unspecified organism; K86.2 Cyst of pancreas; J44.0 Chronic obstructive pulmonary disease with (acute) lower respiratory infection; I10 Essential (primary) hypertension; E78.5 Hyperlipidemia, unspecified; I25.10 Atherosclerotic heart disease of native coronary artery without angina pectoris; Z95.1 Presence of aortocoronary bypass graft; Z95.5 Presence of coronary angioplasty implant and graft; E11.9 Type 2 diabetes mellitus without complications; K76.0 Fatty (change of) liver, not elsewhere classified; R16.0 Hepatomegaly, not elsewhere classified; N40.0 Benign prostatic hyperplasia without lower urinary tract symptoms; I25.2 Old myocardial infarction; I16.0 Hypertensive urgency; Z87.891 Personal history of nicotine dependence; K42.9 Umbilical hernia without obstruction or gangrene; Z79.82 Long term (current) use of aspirin; Z79.84 Long term (current) use of oral hypoglycemic drugs
CPT/HCPCS: 36415; 36416; 71045; 74177; 76705; 80053; 81003; 82378; 82962; 83690; 83735; 83880; 84145; 84443; 84478; 84484; 85025; 85610; 86301; 87040; 87070; 87205; 93005; 93306; 94640; 96365; 96367; 96372; 96375; 96376; 99285; J0360; J0743; J1170; J1644; J1650; J1815 ×2; J1940; J1956; J2270; J2405; J2765; J3490; J7030; Q9967

== ENCOUNTER → 2021-02-09 10:28 | Outpatient (BNVA) | payer OTHER, MEDICARE, SELFPAY | PROVIDERS: PCP Emergency Medicine Emergency Medical Services; Visit Provider Internal Medicine Pulmonary Disease | DX: J44.9 Chronic obstructive pulmonary disease, unspecified (principal) | CPT/HCPCS: 87635 ==

== ENCOUNTER 2021-02-15 07:55 | Outpatient (CLI) | payer OTHER, SELFPAY ==
--- NOTE | 2021-02-15 13:29 | PFTS_ITS ---
Date of Study:02/15/21 Date of Dictation: 02/17/21 MECHANICS: Forced vital capacity (FVC) is reduced 69% Forced expiratory volume in one second (FEV1) is moderately reduced 72%. FEV1/FVC is Normal There is no significant response to bronchodilators. FLOW VOLUME LOOP: normal . LUNG VOLUMES: Total lung capacity (TLC) is reduced 68 % . Residual volume (RV) is reduced 72%. DIFFUSING CAPACITY FOR CARBON MONOXIDE: Moderately reduced 62% . INTERPRETATION: The pulmonary function tests are consistent with restrictive lung disease. Lung volumes show mild restriction. There is moderate gas transfer defect. Please correlate clinically. MTDD
== END 2021-02-15 07:56 | disposition home or self-care (01) ==
LOC: RT 07:56
PROVIDERS: PCP Emergency Medicine Emergency Medical Services; Visit Provider Internal Medicine Pulmonary Disease
DX: J44.9 Chronic obstructive pulmonary disease, unspecified (principal); F17.210 Nicotine dependence, cigarettes, uncomplicated
CPT/HCPCS: 94060; 94618; 94726; 94729; J7611

== ENCOUNTER 2021-03-08 10:32 | Outpatient (CLI) | payer OTHER, SELFPAY ==
--- NOTE | 2021-03-08 10:48 | XR_ITS ---
WS: [id number] Exam: XR chest 2V* [id number] Date/Time of Exam: 03/08/2021 11:01 AM Reason For Exam: resolution of pneumonia Comparison made to prior study 07/04/2011 and 01/08/2021. Previously noted pneumonic infiltrates have resolved. There is chronic pulmonary parenchymal scarring in the left lower lobe and left basal pleural thickening. Heart size is normal. Signs of previous CA BG surgery. Regional bony elements are intact. XR/XR chest 2V* [id number] IMPRESSION: 1. Resolved pneumonia since the latest study. 2. Chronic pulmonary parenchymal changes in the left lower lobe with associated changes of pleural thickening at the left costophrenic angle.
--- NOTE | 2021-03-08 10:48 | CT_ITS ---
WS: [id number] HIGH-RESOLUTION CT CHEST TECHNIQUE: High-resolution CT chest only with inspiration, expiration, and prone imaging. CLINICAL INFORMATION: interstitial lung disease COMPARISON: None. DLP: 281.[address] scans at [facility] use at least one of these dose optimization techniques: automat ed exposure control; mA and/or kV adjustment per patient size (includes targeted exams where dose is matched to clinical indication); or iterative reconstruction. FINDINGS: Cardiomegaly. Sternotomy. Aortic and coronary calcification. No mediastinal or hilar lymphadenopathy. Perihilar bronchovascular thickening. Normal GE junction. Mild subpleural cystic changes. Tiny amount of honeycombing in the right lower lobe posteriorly. Smal l left pleural effusion with pleural plaques. Subsegmental atelectasis left lower lobe. No air trappi ng on the expiratory imaging. Mild bronchiectasis right greater than left lower lobes. CT/CT chest wo con [id number] IMPRESSION: 1. Mild chronic emphysematous changes with a small amount of subpleural cystic change. 2. Tiny amount of honeycombing in the right lower lobe posteriorly. 3. Bronchovascular thickening with mild bilateral lower lobe bronchiectasis ri ght greater than left. 4. Small left pleural effusion with pleural plaques. Subsegmental atelectasis left lower lobe.
[2021-03-08 11:57] LABS: C Reactive Protein 4.6 mg/L (0.0-4.9)
[2021-03-08 12:39] LABS: Erythrocyte Sedimentation Rate 64 mm/hr (0-10)
[2021-03-09 13:09] LABS: Anti-Double Strand DNA AB <1 IU/mL; Centromere B Antibody <1.0 NEG AI (<1.0 NEG); Cyclic Citrullinated Peptide <16 UNITS; JO-1 Antibody <1.0 NEG AI (<1.0 NEG); SCL 70 <1.0 NEG AI (<1.0 NEG); SS A Ro Sjogrens Antibody <1.0 NEG AI (<1.0 NEG); SS-B/LA IGG <1.0 NEG AI (<1.0 NEG); Sm/RNP Antibody <1.0 NEG AI (<1.0 NEG)
[2021-03-09 14:48] LABS: Anti-Nuclear Antibody Screen NEGATIVE (NEGATIVE)
== END 2021-03-08 10:33 | disposition home or self-care (01) ==
LOC: RAD 10:44
PROVIDERS: PCP Emergency Medicine Emergency Medical Services; Visit Provider Internal Medicine Pulmonary Disease
DX: J18.9 Pneumonia, unspecified organism (principal); J98.4 Other disorders of lung; J44.9 Chronic obstructive pulmonary disease, unspecified; J90 Pleural effusion, not elsewhere classified
CPT/HCPCS: 36415; 71046; 71250; 85651; 86038; 86140; 86225; 86235; 86431

== ENCOUNTER 2021-03-21 15:14 | Inpatient (IN) | payer OTHER, MEDICARE, SELFPAY ==
[2021-03-21] VITALS (19 sets, daily range): BP systolic 114–157; BP diastolic 43–71; PULSE 88–128; RESP 18–36; TEMP 36.7–36.8; O2SAT 91–98; BMI 29.7
--- NOTE | 2021-03-21 16:40 | XRR_ITS ---
PROCEDURE INFORMATION: Exam: XR Chest Exam date and time: 03/21/2021 4:40 PM Age: 70 years old Clinical indication: Cough and shortness of breath; Prior surgery; Additional info: SOB, cough TECHNIQUE: Imaging protocol: XR of the chest. Views: 1 view. COMPARISON: CT chest con [id number] 03/08/2021 11:42 AM FINDINGS: Lungs: There are streaky opacities at the left lung base. Pleural spaces: Left pleural effusion. Heart/Mediastinum: Possible cardiomegaly. Heart size not optimally evaluated with a single AP view of the chest. Bones/joints: There are posterior sternotomy changes and postoperative changes overlying the mediastinum. XR/XR chest 1V portable [id number] IMPRESSION: Streaky opacities at the left lung base are consistent with pneumonia.
--- NOTE | 2021-03-21 16:41 | ECG_ITS ---
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 Measurements Intervals [place] Rate: 90 P: 39 DC: 198 QRS: 41 QRSD: 141 T: -25 QT: 395 QTc: 485 Interpretive Statements SINUS RHYTHM WITH SINUS ARRHYTHMIA POSSIBLE LEFT ATRIAL ENLARGEMENT [-0.1mV P WAVE IN V1/V2] RIGHT BUNDLE BRANCH BLOCK [120+ ms QRS DURATION, UPRIGHT V1, 40+ ms S IN I/aVL/V4/V5/V6] ST DEPRESSION, CONSIDER SUBENDOCARDIAL INJURY [0.1+ mV ST DEPRESSION] Compared to ECG 01/03/2021 00:39:35 ST (T wave) deviation now present Indeterminate axis no longer present Electronically Signed On 03-22-2021 21:06:03 CDT by Cholo Kelsey M.D. [email or web address]
[2021-03-21 16:52] LABS: Basophils # 0.1 10^3/uL (0.0-0.1); Basophils % 0.8 %; Eosinophils # 0.5 10^3/uL (0.0-0.8); Eosinophils % 5.2 %; Hematocrit 24.5 % (42.0-52.0); Hemoglobin 7.3 g/dL (11.7-16.6); Lymphocytes # 1.3 10^3/uL (0.8-4.8); Lymphocytes % 12.7 %; Mean Corpuscular HGB Conc 29.8 g/dL (30.0-36.0); Mean Corpuscular Hemoglobin 26.1 pg (28.0-34.0); Mean Corpuscular Volume 87.5 fL (80-94); Mean Platelet Volume 11.2 fL (7.4-10.4); Monocytes % 9.1 %; Neutrophils # 7.47 10^3/uL (1.8-7.7); Neutrophils % 71.8 %; Nucleated Red Blood Cells % 0 %; Platelet Count 308 10^3/cmm (130-400); Red Cell Distribution Width 15.3 % (12.1-15.1); White Blood Count 10.4 10^3/uL (4.0-10.0)
--- NOTE | 2021-03-21 16:58 | W.ED.SOB ---
HPI - SOB/Dyspnea General: Chief Complaint: Shortness of Breath/Dyspnea Stated Complaint: DIFF BREATHING, HEART PALPITATIONS Time Seen by Provider: 03/21/21 16:03 Source: patient Mode of arrival: ambulatory Limitations: no limitations History of Present Illness: HPI Narrative: Patient is a 70-year-old male with a history of COPD, coronary artery disease status post CABG and stent placements, congestive heart failure who presents to the emergency department complaints of shortness of breath that has been ongoing for about 3 days. He has significant dyspnea on exertion which is new, he has gained 5 pounds in about 3 days which is new and he also noticed lower extremity swelling. He denies any fever, denies any sick contacts although he had a doctor's visit in [place] where the Covid infection rate is pretty high. The patient has had his 2 doses of Covid vaccine. MD elicited complaint: shortness of breath and cough Pertinent past history: COPD and congestive heart failure Onset (ago): day(s) (3) Context: occurred during exertion Timing: constant Severity: severe Exacerbating factors: nothing Relieving factors: rest Known history of: COPD and congestive heart failure Associated symptoms: Reports cough and orthopnea; Deny abdominal pain, chest congestion, chest pain, diaphoresis, dizziness, extremity pain, fever(s), hemoptysis, lightheadedness, myalgias, nausea, palpitations, paresthesias, polydipsia, polyuria, rash, sense of impending doom, syncope or vomiting Treatment prior to arrival: none Review of Systems General: Reports: 10 or more systems reviewed and unremarkable except in HPI and below Const: Denies: fever(s) or diaphoresis Card: Reports: orthopnea; Denies: chest pain, palpitations, lightheadedness or syncope Resp: Denies: hemoptysis or chest congestion GI: Denies: abdominal pain, nausea or vomiting Musc: Denies: extremity pain Neuro: Denies: dizziness Endo: Denies: polyuria or polydipsia PFS ED PFSH: Medical History COPD (chronic obstructive pulmonary disease) Cyst Diabetes History of myocardial infarction in adulthood Hyperlipidemia Hypertension Surgical History History of colonoscopy with polypectomy History of coronary angioplasty with insertion of stent Hx of CABG Family History Denies family history of Anesthesia complication Bleeding disorder Social History Smoking and tobacco status: former smoker Quit status (tobacco): has quit using tobacco Year quit tobacco: 1983 [id number] Second hand smoke exposure: No Smoking risk assessment/counseling performed?: Yes Alcohol intake: former Adopted: No Caregiver/support person: Yes Lives independently: Yes Household members: spouse Housing: House Marital status: service: Yes Current occupational status: retired Pets and animals: No History of recent travel: No Leisure activites: exercise Sexually active: No Current gender identity: Male Mayra/Episcopal: Yarsanism Special mayra needs: No Agree to transfusion: No Financial difficulty paying for basics: Decline to Answer Physical Exam Const: COMMON NORMALS: no acute distress, average body habitus, patient oriented x3, no limitations, healthy appearing, alert and well nourished HENMT: COMMON NORMALS: normocephalic, atraumatic and moist oral mucous membranes HEAD & SCALP: normocephalic and atraumatic Neck/C-Spine: COMMON NORMALS: no meningeal signs and no JVD Resp: COMMON NORMALS: normal respiratory effort, No retractions, No use of accessory muscles and percussion normal AUSCULTATION: rales PERCUSSION: percussion normal Cardio: COMMON NORMALS: no JVD, regular rate, regular rhythm, S1 normal heart sound present, S2 normal heart sound present, No gallops present (Cardio), No clicks present (Cardio), No murmurs present (Cardio), No rub (Cardio) and Peripheral pulses 2+ throughout RATE: regular rate RHYTHM: regular rhythm HEART SOUNDS: S1 normal heart sound present and S2 normal heart sound present PERIPHERAL PULSES: Peripheral pulses 2+ throughout GI: COMMON NORMALS: Normal to inspection, nondistended, normoactive bowel sounds present, Soft to palpation, non-tender, No hepatosplenomegaly present, no masses and no bruits PALPATION: Yes Soft to palpation and Yes No hepatosplenomegaly present Extremity: COMMON NORMALS: normal to inspection, full ROM, capillary refill normal and no calf tenderness GENERAL: Yes edema Neuro: COMMON NORMALS: patient oriented x3 SENSORIUM/ORIENTATION: Yes alert MENINGEAL SIGNS: Yes no meningeal signs Skin: COMMON NORMALS: no rashes or lesions noted, no wounds, turgor normal, no jaundice, no petechiae and no mottling GENERAL SKIN EXAM: no rashes or lesions noted and turgor normal Course Reevaluation(s): Reevaluation #1: Discussed his lab and imaging findings with him. Of note is he is significantly elevated baseline troponin especially when compared to his last check to both agree. Another note of concern is his hemoglobin has dropped from 11.7-7.3 within 2 months. I have a feeling this may be contributing to his heart failure. When I asked him if he is having any bleeding he did admits to having melena stools. He denies any abdominal pain or bleeding from any other area. Because of his x-ray findings of pneumonia, symptoms of congestive heart failure with significantly elevated BNP compared to last check and likely type II [place] with a demand ischemia he will benefit from hospital admission. Patient voiced understanding and is in agreement with the plan. Time: 18:27 Consultations: Consultation #1: Discussed the EKG findings with Dr. Kelsey, medical writer on-call. He reviewed the EKG and compared to the prior EKG and does not think there is any significant change. Time: 17:44 Consultation #2: Discussed the patient with Dr. Moralez, hospitalist and he kindly accepted the patient to his service. Time: 19:50 Vital Signs: Vital signs: Vital Signs Temperature 98.0 F 03/21/21 23:09 Pulse Rate 113 H 03/21/21 23:30 Respiratory Rate 30 H 03/21/21 23:30 Blood Pressure 143/62 03/21/21 23:30 Pulse Oximetry 92 03/21/21 23:30 MDM - SOB/Dyspnea MDM Narrative: Medical decision making narrative: 70-year-old male who presented to the emergency department with complaints of dyspnea on exertion, 5 pound weight gain despite using Lasix over the last 2 to 3 days, leg swelling. Evaluation in the emergency department is consistent with a non-STEMI, CHF exacerbation secondary to anemia as his hemoglobin has dropped about 4 g in 2 months. He endorses melena stools. Chest x-ray shows likely pneumonia. Because of all these factors the patient is admitted to the hospital for further evaluation and management. Medical Records: Attestation: I reviewed the patient's medical records. Lab Data: Attestation: I reviewed the patient's lab results. Labs: Lab Results 03/21/21 03/21/21 03/21/21 Range/Units 16:05 16:05 16:05 WBC 10.4 H (4.0-10.0) 10^3/ uL RBC 2.80 L (4.1-5.3) 10^6/u L Hgb 7.3 L (11.7-16.6) g/dL Hct 24.5 L (42.0-52.0) % MCV 87.5 (80-94) fL MCH 26.1 L (28.0-34.0) pg MCHC 29.8 L (30.0-36.0) g/dL RDW 15.3 H (12.1-15.1) % Plt Count 308 (130-400) 10^3/c mm MPV 11.2 H (7.4-10.4) fL Neut % (Auto) 71.8 % Lymph % (Auto) 12.7 % [place] % (Auto) 9.1 % Eos % (Auto) 5.2 % Baso % (Auto) 0.8 % Neut # (Auto) 7.47 (1.8-7.7) 10^3/u L Lymph # (Auto) 1.3 (0.8-4.8) 10^3/u L [place] # (Auto) 1.0 H (0.2-0.9) 10^3/u L Eos # (Auto) 0.5 (0.0-0.8) 10^3/u L Baso # (Auto) 0.1 (0.0-0.1) 10^3/u L Nucleated RBC % (a uto) 0 % Nucleated RBCs # 0.0 /100WBC Sodium 136 (136-145) mmol/L Potassium 4.5 (3.5-5.1) mmol/L Chloride 104 (98-107) mmol/L Carbon Dioxide 21 L (22-29) mmol/L Anion Gap 15.5 (5-19) BUN 23 (8-23) mg/dL Creatinine 1.3 H (0.7-1.2) mg/dL GFR Calculation 54.9 L (90-130) mL/min Glucose 138 H (65-115) mg/dL POC Glucose (70-110) mg/dL Calculated Osmolal ity 288 (285-295) mOsm/k g Calcium 8.9 (8.5-10.5) mg/dL Total Bilirubin 0.5 (0.15-1.2) mg/dL AST 14 (0-40) U/L ALT 10 (0-41) U/L Alkaline Phosphata se 76 (40-130) IU/L Troponin T Baselin e 123 H* (0-15) ng/L Troponin T 120 Min pauma (0-15) ng/L Delta Troponin T (0-10) ABS# NT-Pro-B Natriuret Pep 2155 H (0-125) pg/mL Total Protein 6.3 L (6.6-8.7) g/dL Albumin 3.7 (3.5-5.2) g/dL Globulin 2.6 (1.3-4.6) g/dL Procalcitonin (0-0.5) ng/mL SARS-CoV-2 Ag (Rap id) (Negative) Blood Type Rho(D) Type Antibody Screen Crossmatch 03/21/21 03/21/21 03/21/21 Range/Units 17:30 18:32 18:32 WBC (4.0-10.0) 10^3/ uL RBC (4.1-5.3) 10^6/u L Hgb (11.7-16.6) g/dL Hct (42.0-52.0) % MCV (80-94) fL MCH (28.0-34.0) pg MCHC (30.0-36.0) g/dL RDW (12.1-15.1) % Plt Count (130-400) 10^3/c mm MPV (7.4-10.4) fL Neut % (Auto) % Lymph % (Auto) % [place] % (Auto) % Eos % (Auto) % Baso % (Auto) % Neut # (Auto) (1.8-7.7) 10^3/u L Lymph # (Auto) (0.8-4.8) 10^3/u L [place] # (Auto) (0.2-0.9) 10^3/u L Eos # (Auto) (0.0-0.8) 10^3/u L Baso # (Auto) (0.0-0.1) 10^3/u L Nucleated RBC % (a uto) % Nucleated RBCs # /100WBC Sodium (136-145) mmol/L Potassium (3.5-5.1) mmol/L Chloride (98-107) mmol/L Carbon Dioxide (22-29) mmol/L Anion Gap (5-19) BUN (8-23) mg/dL Creatinine (0.7-1.2) mg/dL GFR Calculation (90-130) mL/min Glucose (65-115) mg/dL POC Glucose (70-110) mg/dL Calculated Osmolal ity (285-295) mOsm/k g Calcium (8.5-10.5) mg/dL Total Bilirubin (0.15-1.2) mg/dL AST (0-40) U/L ALT (0-41) U/L Alkaline Phosphata se (40-130) IU/L Troponin T Baselin e (0-15) ng/L Troponin T 120 Min pauma 122.1 H (0-15) ng/L Delta Troponin T -0.9 L (0-10) ABS# NT-Pro-B Natriuret Pep (0-125) pg/mL Total Protein (6.6-8.7) g/dL Albumin (3.5-5.2) g/dL Globulin (1.3-4.6) g/dL Procalcitonin (0-0.5) ng/mL SARS-CoV-2 Ag (Rap id) Negative (Negative) Blood Type O Positive Rho(D) Type Positive / 4+ Antibody Screen Negative Crossmatch See Detail 03/21/21 03/21/21 Range/Units 18:32 19:01 WBC (4.0-10.0) 10^3/ uL RBC (4.1-5.3) 10^6/u L Hgb (11.7-16.6) g/dL Hct (42.0-52.0) % MCV (80-94) fL MCH (28.0-34.0) pg MCHC (30.0-36.0) g/dL RDW (12.1-15.1) % Plt Count (130-400) 10^3/c mm MPV (7.4-10.4) fL Neut % (Auto) % Lymph % (Auto) % [place] % (Auto) % Eos % (Auto) % Baso % (Auto) % Neut # (Auto) (1.8-7.7) 10^3/u L Lymph # (Auto) (0.8-4.8) 10^3/u L [place] # (Auto) (0.2-0.9) 10^3/u L Eos # (Auto) (0.0-0.8) 10^3/u L Baso # (Auto) (0.0-0.1) 10^3/u L Nucleated RBC % (a uto) % Nucleated RBCs # /100WBC Sodium (136-145) mmol/L Potassium (3.5-5.1) mmol/L Chloride (98-107) mmol/L Carbon Dioxide (22-29) mmol/L Anion Gap (5-19) BUN (8-23) mg/dL Creatinine (0.7-1.2) mg/dL GFR Calculation (90-130) mL/min Glucose (65-115) mg/dL POC Glucose 134 H (70-110) mg/dL Calculated Osmolal ity (285-295) mOsm/k g Calcium (8.5-10.5) mg/dL Total Bilirubin (0.15-1.2) mg/dL AST (0-40) U/L ALT (0-41) U/L Alkaline Phosphata se (40-130) IU/L Troponin T Baselin e (0-15) ng/L Troponin T 120 Min pauma (0-15) ng/L Delta Troponin T (0-10) ABS# NT-Pro-B Natriuret Pep (0-125) pg/mL Total Protein (6.6-8.7) g/dL Albumin (3.5-5.2) g/dL Globulin (1.3-4.6) g/dL Procalcitonin 0.24 (0-0.5) ng/mL SARS-CoV-2 Ag (Rap id) (Negative) Blood Type Rho(D) Type Antibody Screen Crossmatch Imaging Data^: CXR: Attestation: I personally reviewed and interpreted this imaging study as follows: Radiologist's impression: [facility] [place], [place] [address], [place] [address]ZRue ReportSigned Patient: Aric Kaba #: [id number]: 1950cct#:[id number]/Sex: 70 / MADM Date: 03/21/21Loc: ERRoom/Bed:Attending Dr: Ordering Provider/Ordering MD: Tanner St MD, [facility] Date of Service: 03/21/21 Procedure(s): XR chest 1V portable [id number] Accession Number(s): [id number] Report Number: [id number] PROCEDURE INFORMATION: Exam: XR Chest Exam date and time: 03/21/2021 4:40 PM Age: 70 years old Clinical indication: Cough and shortness of breath; Prior surgery; Additional info: SOB, cough TECHNIQUE: Imaging protocol: XR of the chest. Views: 1 view. COMPARISON: CT chest [facility] [id number] 03/08/2021 11:42 AM FINDINGS: Lungs: There are streaky opacities at the left lung base. Pleural spaces: Left pleural effusion. Heart/Mediastinum: Possible cardiomegaly. Heart size not optimally evaluated with a single AP view of the chest. Bones/joints: There are posterior sternotomy changes and postoperative changes overlying the mediastinum. XR/XR chest 1V portable [id number] IMPRESSION: Streaky opacities at the left lung base are consistent with pneumonia. Dictated By:Becky Bunn MDSigned By:Becky Bunn MDSigned Date/Time:03/21/21 1813DD/ 10 EKG Data^: EKG 1: Attestation: I personally reviewed and interpreted this EKG as follows: EKG Interpretation Date: 03/21/21 EKG interpretation time: 16:50 Prior EKG tracings: available for review Interpretation: Sinus rhythm. Heart rate 90 bpm. Right bundle branch block. Diffuse ST segment depression in leads I, II, aVL, V4 to V6 ST depressions are new compared to his prior EKG. EKG 2: Attestation: I personally reviewed and interpreted this EKG as follows: EKG Interpretation Date: 03/21/21 EKG interpretation time: 18:51 Prior EKG tracings: available for review Interpretation: Sinus rhythm. Heart rate 89 bpm. Right bundle branch block. Diffuse ST depressions like prior EKG. No significant change from earlier today. Discharge Plan Discharge Patient Disposition: Admitted As Inpatient Admit Provider: Bon Moarlez Clinical Impression: NSTEMI (non-ST elevated myocardial infarction), Community acquired pneumonia, CHF exacerbation, Normocytic anemia Condition: Stable Coding Level of Care Code ED Diaper Folder for Georges Sanderson
[2021-03-21 17:12] LABS: Alanine Aminotransferase 10 U/L (0-41); Albumin Level 3.7 g/dL (3.5-5.2); Alkaline Phosphatase 76 IU/L (40-130); Anion Gap 15.5 (5-19); Aspartate Amino Transferase 14 U/L (0-40); Blood Urea Nitrogen 23 mg/dL (8-23); Calcium 8.9 mg/dL (8.5-10.5); Carbon Dioxide 21 mmol/L (22-29); Chloride 104 mmol/L (98-107); Globulin 2.6 g/dL (1.3-4.6); Glomerular Filtration Rate 54.9 mL/min (90-130); Glucose 138 mg/dL (65-115); NT Pro B Type Natriuretic Pept 2155 pg/mL (0-125); Osmolality Calculated 288 mOsm/kg (285-295); Potassium 4.5 mmol/L (3.5-5.1); Sodium 136 mmol/L (136-145); Total Bilirubin 0.5 mg/dL (0.15-1.2); Total Protein 6.3 g/dL (6.6-8.7)
[2021-03-21 17:40] LABS: Troponin(5th) Baseline 123 ng/L (0-15)
[2021-03-21 18:08] LABS: SARS Covid-2 Antigen Negative (Negative)
--- NOTE | 2021-03-21 18:41 | ECG_ITS ---
[facility] Test Date: 2021-03-21 Pat Name: Torey Kaba Department: Room: Gender: Male [employer] Vendor: : 1950 Requested By: Tanner St I Order Number: [id number] Lianna MD: Cholo Kelsey M.D. Measurements Intervals [place] Rate: 89 P: 33 CO: 193 QRS: 45 QRSD: 141 T: -34 QT: 405 QTc: 494 Interpretive Statements SINUS RHYTHM POSSIBLE LEFT ATRIAL ENLARGEMENT [-0.1mV P WAVE IN V1/V2] RIGHT BUNDLE BRANCH BLOCK [120+ ms QRS DURATION, UPRIGHT V1, 40+ ms S IN I/aVL/V4/V5/V6] ST-T changes, consider anterolateral ischemia MODERATE T-WAVE ABNORMALITY, CONSIDER INFERIOR ISCHEMIA [-0.1+ mV T WAVE IN II/aVF] Compared to ECG 03/21/2021 16:50:20 T-wave abnormality now present Possible ischemia now present Sinus arrhythmia no longer present ST (T wave) deviation no longer present Electronically Signed On 03-24-2021 0:33:05 CDT by Cholo Kelsey M.D. [email or web address]
[2021-03-21 19:05] LABS: Glucose Point of Care 134 mg/dL (70-110)
[2021-03-21 19:18] LABS: Troponin 5 2HR Delta -0.9 ABS# (0-10)
[2021-03-21 19:22] LABS: Troponin 5 2HR 122.1 ng/L (0-15)
--- NOTE | 2021-03-21 19:51 | CTR_ITS ---
PROCEDURE INFORMATION: Exam: CT Chest Without Contrast; Diagnostic Exam date and time: 03/21/2021 7:51 PM Age: 70 years old Clinical indication: Cough and shortness of breath; Prior surgery; Surgery date: 6+ months; Surgery type: Cabg; Patient HX: C/O SOB x 3 days HX of copd and cad; Additional info: Cap TECHNIQUE: Imaging protocol: Diagnostic computed tomography of the chest without contrast. Radiation optimization: All CT scans at this facility use at least one of these dose optimization techniques: automated exposure control; mA and/or kV adjustment per patient size (includes targeted exams where dose is matched to clinical indication); or iterative reconstruction. COMPARISON: CT chest con [id number] 03/08/2021 11:42 AM RADIATION DOSE METRICS: Total DLP (mGy-cm): 1021.88 FINDINGS: Lungs: Multifocal bilateral pulmonary infiltrates and ground-glass opacities. There are centrilobular emphysematous changes in the bilateral lungs. Streaky densities at the lung bases are most consistent with scarring and/or atelectasis. Pleural spaces: Moderate right pleural effusion and small left pleural effusion with adjacent compressive atelectasis. There is mild peripheral enhancement along the left pleural effusion and mild internal complexity within the left pleural fluid. There are calcified pleural plaques along the left hemithorax. Heart: Multivessel atherosclerotic disease which involves the coronary arteries. There is a benign left pericardial fat pad. Mediastinal space: There are post sternotomy changes and postoperative changes in the anterior mediastinum. Aorta: Unremarkable. No aortic aneurysm. Lymph nodes: Unremarkable. No enlarged lymph nodes. Bones/joints: Unremarkable. No acute fracture. Soft tissues: Unremarkable. CT/CT chest con [id number] IMPRESSION: 1. Multifocal bilateral pulmonary ground-glass opacities and infiltrates are consistent with atypical pneumonia. 2. Small left pleural effusion with peripheral enhancement and minimal internal complexity raises concern for possible empyema. 3. Moderate right pleural effusion. 4. Multivessel atherosclerotic disease which involves the coronary arteries. 5. There are centrilobular emphysematous changes in the bilateral lungs. Radiation Dose CTDIVOL = (mGy): DLP = 1021.88 (mGy-cm)
[2021-03-21] MEDS: enoxaparin 100 mg/mL Syringe SUBCUT (20:18)
[2021-03-21] MEDS: FUROsemide 10 mg/mL SDV 4mL 40 MG IVP (20:18)
[2021-03-21 20:19] LABS: Procalcitonin 0.24 ng/mL (0-0.5)
--- NOTE | 2021-03-21 20:31 | PM.HP ---
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 Patient is stating that for last 1 month he has been experiencing melanotic stools, he has not noticed any bright bleed per rectum, no hematemesis, nausea, vomiting or recurrence abdominal pain. He has gained 5 pounds in 1 week, no active chest pain, he is endorsing orthopnea, PND and shortness of breath on exertion, he can hardly take 15-20 steps without getting short of breath. Of note, he has been having experiencing productive cough which improved after using Spiriva prescribed by Dr. Harris. Pulmonary function test consistent with restrictive lung disease. Patient is stating that he has chronic shortness of breath which got worse on Monday, this was preceded with rhinorrhea which he is attributing to seasonal allergies. No fever. vaccinated for COVID-19. Autoimmune work-up unremarkable Covid antigen negative Diagnostics today revealed hyperglycemia, mild WHIT, anemia, NSTEMI, CHF exacerbation, chest x-ray consistent with vascular congestion with bilateral pleural effusion I have requested CT chest to rule out pneumonia requested procalcitonin, he received azithromycin in the ER along with Lasix 40 mg IV. EKG showing diffuse ST depression with T wave inversion, incomplete right bundle branch block, he is symptom free not complaining of active chest pain or shortness of breath. Received first dose of therapeutic Lovenox in the ER I would transfuse him with 2 units PRBC, hold aspirin and Lovenox at this point and use Plavix along Toprol, case discussed with Dr. Kelsey, Review of Systems Const: Reports: chills, change in weight, fatigue and malaise Eyes: Denies: change in vision ENMT: Denies: throat pain Card: Reports: edema, swelling of feet/ankles, dyspnea on exertion and orthopnea Resp: Reports: dyspnea and productive cough GI: Reports: melena : Denies: flank pain Musc: Denies: neck pain Skin/Breast: Denies: rash Neuro: Denies: headache(s) Psych: Denies: anxiety Endo: Denies: polyuria Khari/Lymph: Denies: easy bruising All/Imm: Denies: urticaria Medications/Allergies Home Medications Medication Instructions Recorded Confirmed Last Taken Type amlodipine 5 mg tablet 5 mg PO DAILY@0700 02/26/20 03/08/21 01/02/21 History cetirizine 10 mg capsule 10 mg PO DAILY@1800 cap 02/26/20 03/08/21 01/01/21 History fluticasone propionate 50 2 spray INTRANASAL DAILY@0700 02/26/20 03/08/21 01/02/21 History mcg/actuation nasal spray,suspension metformin 1,000 mg tablet 1,000 mg PO BID@0700,1800 02/26/20 03/08/21 01/02/21 History metoprolol tartrate 100 mg tablet 100 mg PO BID@0700,1800 02/26/20 03/08/21 01/02/21 History Novolog Flexpen U-100 Insulin 5 unit SUBCUT TID 01/02/21 03/08/21 01/02/21 History Tums 200 mg PO QID PRN 01/02/21 03/08/21 01/02/21 History Vitamin D3 1 tab PO DAILY@0700 01/02/21 03/08/21 01/02/21 History aspirin 81 mg PO DAILY@0700 01/02/21 03/08/21 01/02/21 History Lantus U-100 Insulin 50 unit PO BID@0700,1800 01/25/21 03/08/21 Unknown History albuterol sulfate 90 mcg/actuation 2 puff INHALATION Q6H PRN 01/25/21 03/08/21 Unknown History aerosol inhaler budesonide-formoterol HFA 80 2 puff INHALATION BID #10.2 g 01/25/21 03/08/21 Unknown Rx mcg-4.5 mcg/actuation aerosol inhaler clopidogrel 75 mg tablet 75 mg PO DAILY 01/25/21 03/08/21 Unknown History lisinopril 40 mg tablet 40 mg PO DAILY 01/25/21 03/08/21 Unknown History lovastatin 40 mg tablet 40 mg PO DAILY 01/25/21 03/08/21 Unknown History Allergies Allergy/AdvReac Type Severity Reaction Status Date / Time apricot Allergy Unknown Verified 03/08/21 09:21 Penicillins Allergy Unknown Verified 03/08/21 09:21 PFSH Acute PFSH: Medical History COPD (chronic obstructive pulmonary disease) Cyst Diabetes History of myocardial infarction in adulthood Hyperlipidemia Hypertension Surgical History History of colonoscopy with polypectomy History of coronary angioplasty with insertion of stent Hx of CABG Family History Denies family history of Anesthesia complication Bleeding disorder Social History Smoking and tobacco status: former smoker Quit status (tobacco): has quit using tobacco Year quit tobacco: 1983 [id number] Second hand smoke exposure: No Smoking risk assessment/counseling performed?: Yes Alcohol intake: former Adopted: No Caregiver/support person: Yes Lives independently: Yes Household members: spouse Housing: House Marital status: service: Yes Current occupational status: retired Pets and animals: No History of recent travel: No Leisure activites: exercise Sexually active: No Current gender identity: Male Mayra/Orthodox: Quaker Special mayra needs: No Agree to transfusion: No Financial difficulty paying for basics: Decline to Answer Vitals/I&O/Wt Last Vital Signs Temp 98.2 F 03/21/21 15:40 Pulse 101 H 03/21/21 20:20 Resp 18 03/21/21 20:20 BP 157/53 03/21/21 20:20 Pulse Ox 98 03/21/21 20:20 Weight last 48 hrs Weight 96.842 kg Physical Exam Narrative: EXAM NARRATIVE: male, sitting comfortably in his bed Saturating well on room air No new active chest pain S1, S2 sinus tachycardia Clinical signs of fluid overload Lower extremity edema 1+ Bilateral breath sounds with crackles at the bases Soft distended abdomen no signs of peritonitis EOMI, PERRLA No neurological deficits No signs of cellulitis or joint swelling Data : 03/21/21 16:05 03/21/21 16:05 A&P Assessment and plan (1) CHF exacerbation: Status: Acute (2) NSTEMI (non-ST elevated myocardial infarction): Status: Acute (3) Community acquired pneumonia: Status: Acute (4) Pleural effusion: Status: Acute (5) Sepsis: Status: Acute (6) Normocytic anemia: Status: Acute Additional A&P Information Diastolic congestive heart failure exacerbation Previous echo was done 2 months ago I would get limited echo in the morning Patient is endorsing 5 pound gain despite using Lasix, he watches salt intake Not complaining of active chest pain No murmur appreciated is endorsing that he snores at night, has restrictive lung disease, currently saturating well on room air Active CHF exacerbation secondary to anemia hemoglobin 7.3 we will transfuse him with 2 units and diurese afterwards Bilateral pleural effusion right greater than left NSTEMI EKG showing diffuse T wave inversion, ST depression V2 V3 with incomplete right bundle branch block, no signs of TN depression, I have discussed these changes with Dr. Kelsey who will see him in the morning patient is asymptomatic at this point He does have significant established coronary artery disease in the past, not a candidate of aspirin or anticoagulating agent however he received first dose in the ER I would give him Toprol, Plavix, atorvastatin Limited echo in the morning rule out pericardial effusion Dr. Kelsey consulted Atypical pneumonia He is vaccinated with COVID-19 Covid antigen negative He is afebrile We will start him on a azithromycin DuoNeb every 4 as needed PFTs consistent with restrictive lung disease Sepsis criteria met with tachycardia and leukocytosis I do believe his CT chest findings are secondary to scarring and pleural effusion Normocytic anemia Hemodynamically stable patient is noticing melanotic stools for last 1 month Transfused 2 units PRBC N.p.o., Protonix 40 IV twice daily He will need colonoscopy once his cardiac status stabilizes Full code N.p.o.: DVT prophylaxis contraindicated Attestations Medical Necessity Statement*: Anticipating stay in the hospital cross more than 2 midnights for community-acquired pneumonia, sepsis, NSTEMI Time Spent in Patient Care: (>than 50% of time spent in counselling and/or direct pt care on unit). 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
[2021-03-21] MEDS: azithromycin 500 MG in sodium chloride 0.9% 250 ML 250 MG IV (21:21)
--- NOTE | 2021-03-21 22:41 | ECG_ITS ---
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 Measurements Intervals [place] Rate: 109 P: UT: QRS: 50 QRSD: 153 T: 3 QT: 337 QTc: 454 Interpretive Statements ATRIAL FLUTTER/TACHYCARDIA WITH RAPID VENTRICULAR RESPONSE RIGHT BUNDLE BRANCH BLOCK [120+ ms QRS DURATION, UPRIGHT V1, 40+ ms S IN I/aVL/V4/V5/V6] Diffuse ST DEPRESSION, CONSIDER SUBENDOCARDIAL INJURY [0.1+ mV ST DEPRESSION] Compared to ECG 03/21/2021 18:51:18 ST (T wave) deviation now present Sinus rhythm no longer present T-wave abnormality no longer present Possible ischemia no longer present Electronically Signed On 03-24-2021 0:34:20 CDT by Cholo Kelsey M.D. [id number]
[2021-03-21 23:01] LABS: Glucose Point of Care 307 mg/dL (70-110)
[2021-03-21] MEDS: sodium chloride 0.9% (100 ml) 100 ML (23:03)
[2021-03-21 23:08] LABS: Troponin 5 6HR 97.01 ng/L (0-15)
[2021-03-21] MEDS: guaiFENesin-dextromethorphan UDC 10 mL PO (23:57)
[2021-03-22] VITALS (63 sets, daily range): BP systolic 80–172; BP diastolic 45–85; PULSE 79–119; RESP 12–32; TEMP 36.6–37.2; O2SAT 90–99
[2021-03-22 04:25] LABS: Basophils # 0.1 10^3/uL (0.0-0.1); Basophils % 0.8 %; Eosinophils # 0.3 10^3/uL (0.0-0.8); Eosinophils % 3.1 %; Hematocrit 27.7 % (42.0-52.0); Hemoglobin 8.5 g/dL (11.7-16.6); Lymphocytes # 1.4 10^3/uL (0.8-4.8); Lymphocytes % 13.4 %; Mean Corpuscular HGB Conc 30.7 g/dL (30.0-36.0); Mean Corpuscular Hemoglobin 26.8 pg (28.0-34.0); Mean Corpuscular Volume 87.4 fL (80-94); Mean Platelet Volume 10.7 fL (7.4-10.4); Monocytes % 9.3 %; Neutrophils # 7.77 10^3/uL (1.8-7.7); Nucleated Red Blood Cells % 0 %; Platelet Count 276 10^3/cmm (130-400); Red Blood Count 3.17 10^6/uL (4.1-5.3); Red Cell Distribution Width 14.8 % (12.1-15.1); White Blood Count 10.6 10^3/uL (4.0-10.0)
[2021-03-22 05:26] LABS: Anion Gap 16.8 (5-19); Blood Urea Nitrogen 22 mg/dL (8-23); Calcium 8.2 mg/dL (8.5-10.5); Carbon Dioxide 23 mmol/L (22-29); Chloride 106 mmol/L (98-107); Glomerular Filtration Rate 60.2 mL/min (90-130); Glucose 95 mg/dL (65-115); Osmolality Calculated 297 mOsm/kg (285-295); Potassium 3.8 mmol/L (3.5-5.1); Sodium 142 mmol/L (136-145)
--- NOTE | 2021-03-22 06:22 | PC.NURSE ---
NURSE NOTE: PT C/O COUGH UPON ARRIVAL TO UNIT. NOTIFIED DR. ARENAS AND RECEIVED ORDERS FOR ROBITUSSIN DM. MEDICATION GIVEN ORDERED AND PT STATED MEDICATION IS HELPING COUGH.
[2021-03-22 06:36] LABS: Glucose Point of Care 119 mg/dL (70-110)
[2021-03-22] MEDS: atorvastatin 40 mg Tablet 80 MG PO (07:59)
[2021-03-22] MEDS: metoprolol succinate ER (24 HR) 25 mg Tablet PO (07:59)
[2021-03-22] MEDS: bumetanide 0.25 mg/mL SDV 4 mL 1 MG IV (08:02)
[2021-03-22] MEDS: pantoprazole 40 mg SDV IVP ×2 (08:02→19:50)
--- NOTE | 2021-03-22 08:32 | PM.CONSULT ---
Providers/Reason For Consult Consulting Physician/Specialty*: LESLI Kelsey MD/ Cardiology Reason for Consult*: Patient with history atherosclerotic heart disease presenting with shortness of breath and elevated troponin T Attending Physician: Cole Peraza MD Primary Care Provider: Bill Prescott DO History of Present Illness History of Present Illness Torey Kaba is a 70 year old male with multiple medical problems,, is admitted to the hospital with complaints of progressive fatigue and shortness of breath. He was found to have elevated troponin T, BNP and features of congestive heart failure. He is known to have atherosclerotic heart disease, status post 7 vessel coronary bypass surgery in 2004 and some type of coronary intervention 4 years ago or so. He was recent admitted to hospital on 04 January with a features of acute pancreatitis. According the patient, he been progressively getting weak over the last 1 week or so. He also has significant shortness of breath with activities. May have some amount of orthopnea. Denies any chest pain or chest tightness. No fever or chills. But he has a cough bringing up whitish and occasional lower sputum. No other specific complaints. He was admitted to hospital on the epigastric pain nausea and some shortness of breath. He was found to have features of acute pancreatitis. Ultrasound and CT scan examination revealed features of hepatic steatosis. 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 He had elevated CA 19-9. While being in the hospital, he also developed an acute onset of shortness of breath and hemoptysis. He was found to have features of pneumonia for which he was treated with IV antibiotics. He had a slightly elevated BNP at that time. His hemoglobin was within normal limits. Since hospital discharge, patient was seen by a radiopharmacist in [place]. He is scheduled for? MRCP to further evaluate the pancreatic cyst. As of now we have no tissue diagnosis. Patient has been noticing melanotic stools off and on for some time. His hemoglobin was found to be around 7.5 at the time of the ER admission. Since then, he received 2 units of blood transfusion. He also may have a possible pneumonia for which he is getting IV antibiotics. He has slightly elevated creatinine. Patient is known to have atherosclerotic heart disease and had a 7 vessel coronary artery bypass surgery in [facility] in 2004. Apparently he did well since then up until 4 years ago when he had some chest pain for which he eventually underwent a repeat coronary angiogram at the [facility] in [place]. Details of this are not available. Patient does not know for sure whether he had any PCI or not. But he has not had any chest pain or any specific cardiac symptoms since then. She was diagnosed with high blood pressure approximately 40 years ago. Getting treatment for diabetes since 2000. Has been taking lipid-lowering agents since 2004. Also has a questionable history of gout. History of COPD and pneumonia. History of the joint disease and has been taking Naprosyn as needed history of varicose veins. 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 Since the hospital admission, he seems to be feeling little better. Still has significant shortness of breath with activities and fatigue. Review of Systems Narrative: CONSTITUTIONAL: No fever or chills. Fatigue and shortness of breath as mentioned above . EYES: No blurring of vision or other visual disturbances lately. ENT: No hoarseness of voice, auditory disturbances or sore throat. CARDIOVASCULAR: As mentioned above. RESPIRATORY: COPD and recent pneumonia/hemoptysis as mentioned above GASTROINTESTINAL: History of melanotic stool as mentioned above GENITOURINARY: No dysuria or hematuria. INTEGUMENTARY: No skin rashes or history of skin cancer. NEURO: No transient ischemic attacks or amaurosis. PSYCHIATRIC: No history of psychosis or major depression. HEMATOLOGIC: Recently diagnosed anemia ENDOCRINE: Type 2 diabetes MUSCULOSKELETAL: History of osteoarthritis ALLERGY/IMMUNOLOGY: As mentioned above. Meds/Allergies Home Medications and Allergies Home Medications Medication Instructions Recorded Confirmed Last Taken Type amlodipine 5 mg tablet 5 mg PO DAILY@0700 02/26/20 03/22/21 03/21/21 History cetirizine 10 mg capsule 10 mg PO DAILY@1800 cap 02/26/20 03/22/21 03/20/21 History fluticasone propionate 50 2 spray INTRANASAL DAILY@0700 02/26/20 03/22/21 03/21/21 History mcg/actuation nasal spray,suspension metformin 1,000 mg tablet 1,000 mg PO BID@0700,1800 02/26/20 03/22/21 03/21/21 History metoprolol tartrate 100 mg tablet 100 mg PO BID@0700,1800 02/26/20 03/22/21 03/21/21 History aspirin 81 mg PO DAILY@0700 01/02/21 03/22/21 03/21/21 History calcium carbonate [Tums] 200 mg PO QID PRN 01/02/21 03/22/21 01/02/21 History insulin aspart U-100 [Novolog 0 unit SUBCUT TID 01/02/21 03/22/21 03/20/21 History Flexpen U-100 Insulin] Lantus U-100 Insulin 50 unit PO BID@0700,1800 01/25/21 03/22/21 03/21/21 History albuterol sulfate 90 mcg/actuation 2 puff INHALATION Q6H PRN 01/25/21 03/22/21 03/21/21 History aerosol inhaler clopidogrel 75 mg tablet 75 mg PO DAILY 01/25/21 03/22/21 03/21/21 History lisinopril 40 mg tablet 40 mg PO DAILY 01/25/21 03/22/21 03/20/21 History lovastatin 40 mg tablet 40 mg PO DAILY 01/25/21 03/22/21 03/20/21 History budesonide-formoterol 2 puff INHALATION BID 03/22/21 03/22/21 03/21/21 History furosemide 40 mg PO DAILY 03/22/21 03/22/21 03/21/21 History Allergies Allergy/AdvReac Type Severity Reaction Status Date / Time apricot Allergy Unknown Verified 03/08/21 09:21 Penicillins Allergy Unknown Verified 03/08/21 09:21 Current Medications Current Medications Generic Name Dose Route Start Last Admin Trade Name Freq PRN Reason Stop Dose Admin Atorvastatin Calcium 80 mg 03/22/21 09:00 03/22/21 07:59 Atorvastatin 40 Mg Tablet PO 80 mg DAILY NIDHI Administration Bumetanide 1 mg 03/22/21 09:00 03/22/21 08:02 Bumetanide 0.25 Mg/Ml Sdv 4 Ml IV 1 mg DAILY NIDHI Administration Guaifenesin/Dextromethorphan 10 ml 03/21/21 23:24 03/21/21 23:57 Guaifenesin-Dextromethorphan Udc 10 Ml PO 10 ml Q4H PRN Administration COUGH Insulin Aspart 0 unit 03/21/21 22:34 03/22/21 07:57 Insulin Aspart 100 Unit/1 Ml SUBCUT Not Given WM&BEDTIME NIDHI Protocol Metoprolol Succinate 25 mg 03/22/21 09:00 03/22/21 07:59 Metoprolol Succinate Er (24 Hr) 25 Mg Tablet PO 25 mg DAILY NIDHI Administration Pantoprazole Sodium 40 mg 03/22/21 09:00 03/22/21 08:02 Pantoprazole 40 Mg Sdv IVP 40 mg BID NIDHI Administration PFSH Acute PFSH: Medical History (Updated 03/22/21 @ 17:21 by Cole Peraza MD) COPD (chronic obstructive pulmonary disease) Cyst Diabetes History of myocardial infarction in adulthood Hyperlipidemia Hypertension Umbilical hernia, incarcerated Surgical History (Updated 03/22/21 @ 13:53 by Jerome Obrien MD) H/O esophagogastroduodenoscopy History of colonoscopy with polypectomy History of coronary angioplasty with insertion of stent Hx of CABG Family History Denies family history of Anesthesia complication Bleeding disorder Social History Smoking and tobacco status: former smoker Quit status (tobacco): has quit using tobacco Year quit tobacco: 1983 [id number] Second hand smoke exposure: No Smoking risk assessment/counseling performed?: Yes Alcohol intake: former Adopted: No Caregiver/support person: Yes Lives independently: Yes Household members: spouse Housing: House Marital status: service: Yes Current occupational status: retired Pets and animals: No History of recent travel: No Leisure activites: exercise Sexually active: No Current gender identity: Male Mayra/Ad[employer]: [employer] Special mayra needs: No Agree to transfusion: No Financial difficulty paying for basics: Decline to Answer Vitals/I&O/Wt Last Vital Signs Temp 98.1 F 03/22/21 07:32 Pulse 98 03/22/21 07:32 Resp 20 H 03/22/21 07:32 BP 152/65 03/22/21 07:32 Pulse Ox 97 03/22/21 07:32 03/21/21 03/22/21 03/22/21 22:59 06:59 14:59 Intake Total 0 / 0 985 / 985 Balance 0 / 0 985 / 985 Weight last 48 hrs Weight 213 lb 8 oz Physical Exam Narrative: EXAM NARRATIVE: GENERAL: The patient is alert and oriented times three. Not in any acute distress. HEENT: Minimal pallor, no icterus or lymphadenopathy. The pupils are reactant to light. Oral cavity: There are no mucous membrane lesions. Funduscopic examination: The fundus is not visualized NECK: Trachea appears to be central. No masses noted. No JVD or thyromegaly appreciated. Carotid bruit on the right side. RESPIRATORY: Chest is symmetrical. No intercostals muscle retraction or any accessory muscle activation. There is no chest wall tenderness. Breath sounds are heard bilaterally. No rales or rhonchi heard. No evidence of any consolidation. BREASTS: Deferred. HEART: PMI could not be palpated. No palpable precordial events. S1 and S2 are normal. No S3 or S4 heard. No pericardial rub or any click heard. ABDOMEN: No vessel pulsations or distention. No tenderness. No organomegaly appreciated. No abdominal bruit. Bowel sounds are normally heard. : Deferred. RECTAL: Deferred. LYMPHATIC: No lymphadenopathy noted in the neck or groin. EXTREMITIES: No edema or cyanosis. No clubbing. Varicose veins and features of chronic venous stasis. The dorsalis pedis and posterior tibial tibial pulses are extremely weak on both sides MUSCULOSKELETAL: No acute joint deformities or swelling SKIN: Features of chronic venous stasis in both lower extremities. No rashes noted NEUROPSYCHIATRIC: The patient is alert and oriented x3. Appears to be in a good mood. The higher functions are grossly within normal limits. No tremors or rigidity noted. Data Labs: Other Labs: Laboratory Last Values WBC 10.6 10^3/uL (4.0 -10.0) H 03/22/21 02:55 RBC 3.17 10^6/uL (4.1 -5.3) L 03/22/21 02:55 Hgb 8.5 g/dL (11.7-16 .6) L 03/22/21 02:55 Hct 27.7 % (42.0-52.0 ) L 03/22/21 02:55 MCV 87.4 fL (80-94) 03/22/21 02:55 MCH 26.8 pg (28.0-34. 0) L 03/22/21 02:55 MCHC 30.7 g/dL (30.0-3 6.0) 03/22/21 02:55 RDW 14.8 % (12.1-15.1 ) 03/22/21 02:55 Plt Count 276 10^3/cmm (130 -400) 03/22/21 02:55 MPV 10.7 fL (7.4-10.4 ) H 03/22/21 02:55 Neut % (Auto) 73.0 % 03/22/21 02:55 Lymph % (Auto) 13.4 % 03/22/21 02:55 [place] % (Auto) 9.3 % 03/22/21 02:55 Eos % (Auto) 3.1 % 03/22/21 02:55 Baso % (Auto) 0.8 % 03/22/21 02:55 Neut # (Auto) 7.77 10^3/uL (1.8 -7.7) H 03/22/21 02:55 Lymph # (Auto) 1.4 10^3/uL (0.8- 4.8) 03/22/21 02:55 [place] # (Auto) 1.0 10^3/uL (0.2- 0.9) H 03/22/21 02:55 Eos # (Auto) 0.3 10^3/uL (0.0- 0.8) 03/22/21 02:55 Baso # (Auto) 0.1 10^3/uL (0.0- 0.1) 03/22/21 02:55 Nucleated RBC % (a uto) 0 % 03/22/21 02:55 Nucleated RBCs # 0.0 /100WBC 03/22/21 02:55 Sodium 142 mmol/L (136-1 45) 03/22/21 02:55 Potassium 3.8 mmol/L (3.5-5 .1) 03/22/21 02:55 Chloride 106 mmol/L (98-10 7) 03/22/21 02:55 Carbon Dioxide 23 mmol/L (22-29) 03/22/21 02:55 Anion Gap 16.8 (5-19) 03/22/21 02:55 BUN 22 mg/dL (8-23) 03/22/21 02:55 Creatinine 1.2 mg/dL (0.7-1. 2) 03/22/21 02:55 GFR Calculation 60.2 mL/min (90-1 30) L 03/22/21 02:55 Glucose 95 mg/dL (65-115) 03/22/21 02:55 POC Glucose 119 mg/dL (70-110 ) H 03/22/21 06:33 Calculated Osmolal ity 297 mOsm/kg (285- 295) H 03/22/21 02:55 Calcium 8.2 mg/dL (8.5-10 .5) L 03/22/21 02:55 Magnesium 2.0 mg/dL (1.7-2. 3) 03/22/21 02:55 Total Bilirubin 0.5 mg/dL (0.15-1 .2) 03/21/21 16:05 AST 14 U/L (0-40) 03/21/21 16:05 ALT 10 U/L (0-41) 03/21/21 16:05 Alkaline Phosphata se 76 IU/L (40-130) 03/21/21 16:05 Troponin T Baselin e 123 ng/L (0-15) H* 03/21/21 16:05 Troponin T 120 Min [place] 122.1 ng/L (0-15) H 03/21/21 18:32 Delta Troponin T -0.9 ABS# (0-10) L 03/21/21 18:32 Troponin T Hi Sens 6Hr 97.01 ng/L (0-15) H 03/21/21 22:10 Troponin T Hi Sens 6Hr Delta -25.99 ng/L (0-12 ) L 03/21/21 22:10 NT-Pro-B Natriuret Pep 2155 pg/mL (0-125 ) H 03/21/21 16:05 Total Protein 6.3 g/dL (6.6-8.7 ) L 03/21/21 16:05 Albumin 3.7 g/dL (3.5-5.2 ) 03/21/21 16:05 Globulin 2.6 g/dL (1.3-4.6 ) 03/21/21 16:05 Procalcitonin 0.24 ng/mL (0-0.5 ) 03/21/21 18:32 SARS-CoV-2 Ag (Rap id) Negative (Negati ve) 03/21/21 17:30 Blood Type O Positive 03/21/21 18:32 Rho(D) Type Positive / 4+ 03/21/21 18:32 Antibody Screen Negative 03/21/21 18:32 Crossmatch See Detail 03/21/21 18:32 Imaging^: Echo: My impression: echocardiogram on 01/07/2021 revealed Mild diffuse hypokinesia of the left ventricle with ejection fraction 50%. Mildly dilated LV cavity. Mildly increased left atrial size. Mild to moderate mitral valve regurgitation. Mild mitral annular calcification. Thickened aortic and mitral valves. Mild pulmonary valve regurgitation. There is no pericardial effusion. There are no intracardiac masses. Technically somewhat difficult study because of the poor ultrasonic window No previous study is available for comparison. EKG^: EKG 1: My Interpretation: Sinus rhythm with right bundle branch block pattern. Diffuse ST-T changes, suggestive of endocardial ischemia. A&P Assessment and plan (1) Elevated troponin: Peripheral arterial diseasePatient has no significant delta. is possible that is a consideration. You have his history and abnormally a type II myocardial infarction also is a consideration. However and possible pneumonia and anemia, a type II myocardial infarction also is a consideration. At this point because of the ongoing GI bleed, we may hold off on any anticoagulation. The aspirin was held. May continue the Plavix for the time being. Status: Acute (2) Acute on chronic diastolic (congestive) heart failure: Patient may be carefully treated with with IV diuretics Status: Acute (3) Atherosclerosis of coronary artery of [place] heart without angina pectoris: Patient is known to have 7 vessel coronary artery bypass surgery. We will try to get the records from [place]. We also will try to get the medical records from the [facility] specifically the recent cardiac catheterization report. In the meanwhile, he may continue on the current medications. Status: Acute Qualifiers: Coronary Disease-Associated Artery/Lesion type: [place] artery Qualified Code(s): I25.10 - Atherosclerotic heart disease of [place] coronary artery without angina pectoris (4) Normochromic normocytic anemia: Patient requires GI work-up. Status: Acute (5) Acute kidney injury: The creatinine slightly elevated. This will be closely monitored. Status: Acute (6) Carotid bruit: I may go ahead and do a carotid tube based on the findings, further recommendations will be made. Status: Acute Qualifiers: Laterality: right Qualified Code(s): R09.89 - Other specified symptoms and signs involving the circulatory and respiratory systems (7) Peripheral arterial occlusive disease: We also may go ahead and do based on the results, further recommendations will be made. 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 Type 2 diabetes. Dyslipidemia. After reviewing the patient's medical records and also based on the patient's clinical progress, further recommendations will be made. Thank for the opportunity to evaluate this patient make these recommendations. Consult Attestations Medical Necessity Statement: Patient requires continued hospital stay for close monitoring and further management Coding Level of Care Code Acute Creeler for Chg Fwd History Detailed Medical Decision Making High Complexity Diagnoses Elevated troponin R77.8 Acute on chronic diastolic (congestive) heart failure I50.33 Atherosclerosis of coronary artery of [place] heart without angina pectoris I25.10 Coronary Disease-Associated Artery/Lesion type: [place] artery Normochromic normocytic anemia D64.9 Acute kidney injury N17.9 Carotid bruit R09.89 Laterality: right Peripheral arterial occlusive disease I77.9 Time Spent (min) 65
--- NOTE | 2021-03-22 10:08 | USCV_ITS ---
Torey Kaba Age: 70 Gender: M : 1950 Exam Date: 03/22/2021 15:42 Ordering Phys: Cholo Kelsey MD ([email or web address]) Technologist: Niesha Laguerre Exam Location: [facility] [place] Indication: CAROTID BRUIT Risk Factors: Previous Vascular Surgery: Right Brachial BP: / Left Brachial BP: / Right Left Velocity (cm/s) Spectral Plaque Velocity (cm/s) Spectral Plaque Syst/Diast Broadening Syst/Diast Broadening 94.80/ 7.70 Prox CCA 161.70/ 15.80 95.90/ 11.80 Mid CCA 123.60/ 19.70 85.30/ 9.50 Distal CCA 105.20/ 15.80 121.30/23.20 Prox ICA 139.30/ 35.50 103.60/24.30 Mid ICA 178.70/ 54.40 176.20/47.30 Distal ICA 178.70/ 37.30 102.50 ECA 83.50 1.84 ICA/CCA 1.45 Antegrade Vertebral Antegrade 68.40/ 17.10 cm/s 46.10/ 12.80 cm/s Bi Subclavian Bi 128.8 220.1 0 0 FINDINGS Moderate to heavy heterogeneous plaques of the left bifurcation and proximal internal carotid artery. Moderate heterogeneous scattered plaques of the right bifurcation and internal carotid artery Antegrade flow in the vertebral arteries bilaterally. Normal Doppler flow velocities in these external carotid arteries bilaterally Elevated velocity in the left subclavian artery CONCLUSIONS Moderate to heavy heterogeneous plaques at he left bifurcation and proximal internal carotid artery with Doppler features suggestive of 50 to 69% stenosis Moderate heterogeneous scattered plaques of the right bifurcation and internal carotid artery with Doppler features suggestive of less than 50% stenosis. Elevated Doppler velocity in the left subclavian artery, suggestive of less than 60% stenosis. No similar previous studies are available for comparison Dr Cholo Kelsey MD [facility] (Electronically Signed) Final Date: 23 March 2021 09:44 S
--- NOTE | 2021-03-22 10:08 | USCV_ITS ---
Torey Kaba Age: 70 Gender: M : 1950 Exam Date: 03/22/2021 16:09 Ordering Phys: Cholo Kelsey MD ([email or web address]) Technologist: Niesha Laguerre Exam Location: [facility] [place] Indication: EXTREMELY WEAK PULSES Risk Factors: Previous Vascular Surgery: RIGHT LEFT BP: 153.0 / 72.00 BP: 147.0/ 69.00 0 0 Waveform Velocity (cm/s) Velocity (cm/s) Waveform Monophasic 56.1 Iliac Prox 464.8 Monophasic Monophasic 69.1 Iliac Mid 223.5 Monophasic Monophasic 65.8 Iliac Distal 90.4 Monophasic Monophasic 103.6 COMMERCIAL SALES SPECIALIST 67.6 Monophasic Monophasic 73.0 SFA Prox 53.6 Monophasic Monophasic 414.2 SFA Mid 141.1 Monophasic Monophasic 33.5 SFA Dist 43.6 Monophasic Monophasic 52.8 POP 37.[address] GUARD 168.1 Monophasic DPA 25.[address] CROSSING GUARD >220 RT DPA UNABLE TO EVALUATE LT ROAD CROSSING GUARD >220 LT DPA 65 High velocity monophasic Doppler waveform in the mid SFA. Delayed peaking low velocity waveform in the distal SFA Velocity continues waveforms in the popliteal and posterior tibial artery on the right side. No Doppler flow signals in the dorsalis pedis artery on the right side. Noncompressible posterior tibial artery on the right side. Moderately heavy diffuse plaques in the left iliac, femoral and infrapopliteal vessels. Markedly elevated Doppler flow velocity in the left proximal iliac artery CONCLUSIONS 1. Features suggestive of high-grade stenosis in the mid superficial femoral artery on the right side.(Greater than 70%) 2. Features suggestive of high-grade stenosis at the left proximal iliac artery with a hemodynamically significant stenosis at the level of the mid SFA and posterior tibial arteries. 3. Moderate to heavy diffuse plaques at the iliac and femoral arteries bilaterally. 4. Noncompressible vessels at the ankles bilaterally. No similar previous studies are available for comparison Dr Cholo Kelsey MD [facility] (Electronically Signed) Final Date: 23 March 2021 09:56 S
[2021-03-22 11:00] LABS: Glucose Point of Care 151 mg/dL (70-110)
--- NOTE | 2021-03-22 12:12 | P.PN_ITS ---
Subjective Subjective: Interval history: Admitted overnight. H&P and labs noted. On examination patient lying comfortably in bed with family at bedside. He states he has been having on and off melena for last 1 month. He has been having difficulty in breathing worsening for last 3 days and last night he was noted to catch his breath were reported to the ER. States he is feeling a lot better now. He also states he is been having difficulty in breathing and cough which is more than usual for last 1 week. He has been worked up as an outpatient for possible pancreatic cancer with plan for ERCP tomorrow. Vitals/I&O/Wt Last Vital Signs Temp 98.0 F 03/22/21 10:41 Pulse 96 03/22/21 10:41 Resp 22 H 03/22/21 10:41 BP 140/74 03/22/21 10:41 Pulse Ox 99 03/22/21 10:41 03/21/21 03/22/21 03/22/21 22:59 06:59 14:59 Intake Total 0 / 0 985 / 985 Output Total 650 / 650 Balance 0 / 0 985 / 985 -650 / -650 Weight last 48 hrs Weight 96.842 kg Physical Exam Narrative: EXAM NARRATIVE: General: No acute distress, AO x3, jovial, on nasal cannula HEENT: PERRLA, pupils bilaterally equal and reactive Chest: Normal vesicular breath sounds, bilateral basilar rhonchi, occasional crackles all over the lung mueller diffused, equal good air entry bilaterally CVS: S1-S2 regular, no murmurs, no tachycardia, no gallops, no rubs Abdomen: Soft, nontender, no organomegaly, bowel sounds present Neuro: No focal deficits, no facial deformity, AO x3, power 5/5 in all limbs Data : 03/22/21 02:55 03/22/21 02:55 A&P Assessment and plan (1) Hypoxia: Status: Acute (2) CHF exacerbation: Status: Acute Qualifiers: Heart failure type: diastolic Qualified Code(s): I50.33 - Acute on chronic diastolic (congestive) heart failure (3) Restrictive lung disease: Status: Acute (4) Community acquired pneumonia: Status: Acute Qualifiers: Laterality: left Lung location: lower lobe of lung Qualified Code(s): J18.9 - Pneumonia, unspecified organism (5) NSTEMI (non-ST elevated myocardial infarction): Status: Acute (6) Normocytic anemia: Status: Acute (7) Acute kidney injury: Status: Acute (8) Pleural effusion: Status: Acute Additional A&P Information Acute hypoxia: Most likely a combination of diastolic congestive heart failure along with possible atypical pneumonia. IV Lasix 60 mg daily. Strict input output charting. Daily weights. Fluid restriction up to 1500 cc. For pneumonia: With COVID-19. Rapid antigen negative. Check urine Legionella, bacterial antigen, sputum culture, MRSA swab. Continue with azithromycin. Start patient on ceftriaxone 1 g IV daily. Will de-escalate antibiotics as per culture results. If patient remains afebrile without leukocytosis for next 48 hours can plan to discontinue antibiotics. Check D-dimer. Given possible pancreatic malignancy but embolism is high risk. Oxygen supplementation keeping saturation over 90%. Non-ST elevation UT: Diffuse ST-T depressions along with elevated troponin on admission. Troponin have trended down. Continue with Plavix, statins. For now hold off on aspirin and full dose Lovenox given GI bleed. Continue with home dose of metoprolol. Appreciate cardiology recommendations. As per cardiology recommendations they would want patient's hemoglobin to be around 9-10. Will transfuse 1 more unit of PRBC. Once patient clinically stable from anemia and hypoxia can plan for stress test. Acute blood loss anemia: Secondary to melena. Post 2 unit blood transfusion. We will consult surgery for possible EGD/colonoscopy. Continue with IV Protonix 40 twice daily. Check vitamin B12, folate, iron panel. Start patient on IV iron supplementation. Transfuse keeping hemoglobin around 9. Hypertension: Goal blood pressure less than 140/90 mmHg. For now continue with home dose of metoprolol. For now hold off on lisinopril and amlodipine. Will reintroduce medications accordingly. WHIT: Baseline creatinine around 1. Resolved to 1.2. Most likely because of dehydration. We will continue to monitor. Medical reconciliation done for nephrotoxic drugs. Full code Clear liquid diet. DVT prophylaxis with SCDs. Patient's care plan discussed in detail with patient and family at bedside. All the questions were answered. Attestations Medical Necessity Statement*: Patient requires further hospitalization for ma nagement of acute hypoxia because of CHF exacerbation, possible pneumonia, non- ST elevation UT, acute blood loss anemia in setting of possible pancreatic malignancy Time Spent in Patient Care: Greater than 35 minutes (>than 50% of time spent in counselling and/or direct pt care on unit) . Coding Level of Care Code Acute Review Consultant for Yenyg Fwd Diagnoses Hypoxia R09.02 CHF exacerbation I50.33 Heart failure type: diastolic Restrictive lung disease J98.4 Community acquired pneumonia J18.9 Laterality: left Lung location: lower lobe of lung NSTEMI (non-ST elevated myocardial infarction) I21.4 Normocytic anemia D64.9 Acute kidney injury N17.9 Pleural effusion J90
[2021-03-22 12:56] LABS: Iron 23 ug/dL (59-158); Percent Saturation 6.9 % (20-50); Total Iron Binding Capacity 330 mcg/dl; Unsaturated Iron Binding 307 ug/dL (112-347)
--- NOTE | 2021-03-22 12:57 | PC.CHAP ---
Pastoral Care Encounter/Spiritual Assessment Type of Contact [] Declined steamer gum candy visit [] Patient/Family/Request visit [] Outpatient visit [x] Follow-up visit [] Physician referral [] Code/Alert [] Routine visit [] Staff referral [] Actively dying []x Patient sleeping [] Family support [] [] Out of room [] Palliative care [] [] Receiving care in room [] Pre-surgical visit [] Trauma [] Long length of stay [] ICU visit [] Other: Relational/Emotional Strength [] Patient feels connected with others/family/visitors/staff [] Distress [] Loneliness/isolation [] Abandonment Spirituality of Patient [] Person of Mayra [] Attends Christianity of their Mayra [] Believes in Prayer [] Reads Bible or Latter Day materials [] There are Spiritual issues to be addressed It Technical Support Specialist Interventions [] Prayer [] Active listening [] Non-anxious presence [] Spiritual/emotional support [] Crisis/trauma care [] Spiritual counseling [] Bereavement support [] Provided bereavement packet [] Provided Bible/devotional materials [] Provided toy/stuffed animal, coloring book to patient or family member [] Provided Communion [] Anointing/[place] [] Salvation [] Completed spiritual assessment [] Other: Impact on Illness or Injury [] Angry [] Fearful [] Anxious [] Often cries [] Exhaustion [] Unable to work [] Unable to attend caodaism [] Unable to walk/stand [] Unable to read [] Unable to drive [] Unable to eat/drink [] Unable to sleep [] Unable to be with family [] Patient intubated [] Other: Summary Time spent with patient
[2021-03-22 13:05] LABS: Thyroid Stimulating Hormone 1.79 uIU/mL (0.27-4.20)
[2021-03-22 13:11] LABS: Folate Level 8.7 ng/mL (4.5-32.2); Vitamin B12 542 pg/mL (232-1245)
[2021-03-22] MEDS: FUROsemide 10 mg/mL SDV 10mL 60 MG IVP (13:36)
[2021-03-22 13:42] LABS: D Dimer 1.11 ug/mIFEU (0-0.59)
--- NOTE | 2021-03-22 13:51 | P.CONIM_ITS ---
Providers/Reason For Consult Consulting Physician/Specialty*: General Surgery Dr. Obrien Reason for Consult*: Anemia Attending Physician: Cole Peraza MD Primary Care Provider: Bill Prescott DO History of Present Illness History of Present Illness Torey Kaba is a 70 year old male who was admitted to the hospital on 03/21/2021 with shortness of breath. He was noted to have a hemoglobin of 7.3 on admission. Patient denies any abdominal pain, nausea, vomiting, constipation, diarrhea, hematemesis or hematochezia or melena. He had a panendoscopy by Dr. Arguello in 2017 which showed gastritis and a normal colonoscopy.. Patient has been scheduled for outpatient ERCP due to uncinate process noted on the pancreas during his recent admission for pancreatitis Review of Systems General: Reports: 10 or more systems reviewed and unremarkable except in HPI and below Meds/Allergies Home Medications and Allergies Home Medications Medication Instructions Recorded Confirmed Last Taken Type amlodipine 5 mg tablet 5 mg PO DAILY@0700 02/26/20 03/22/21 03/21/21 History cetirizine 10 mg capsule 10 mg PO DAILY@1800 cap 02/26/20 03/22/21 03/20/21 History fluticasone propionate 50 2 spray INTRANASAL DAILY@0700 02/26/20 03/22/21 03/21/21 History mcg/actuation nasal spray,suspension metformin 1,000 mg tablet 1,000 mg PO BID@0700,1800 02/26/20 03/22/21 03/21/21 History metoprolol tartrate 100 mg tablet 100 mg PO BID@0700,1800 02/26/20 03/22/21 03/21/21 History aspirin 81 mg PO DAILY@0700 01/02/21 03/22/21 03/21/21 History calcium carbonate [Tums] 200 mg PO QID PRN 01/02/21 03/22/21 01/02/21 History insulin aspart U-100 [Novolog 0 unit SUBCUT TID 01/02/21 03/22/21 03/20/21 History Flexpen U-100 Insulin] Lantus U-100 Insulin 50 unit PO BID@0700,1800 01/25/21 03/22/21 03/21/21 History albuterol sulfate 90 mcg/actuation 2 puff INHALATION Q6H PRN 01/25/21 03/22/21 03/21/21 History aerosol inhaler clopidogrel 75 mg tablet 75 mg PO DAILY 01/25/21 03/22/21 03/21/21 History lisinopril 40 mg tablet 40 mg PO DAILY 01/25/21 03/22/21 03/20/21 History lovastatin 40 mg tablet 40 mg PO DAILY 01/25/21 03/22/21 03/20/21 History budesonide-formoterol 2 puff INHALATION BID 03/22/21 03/22/21 03/21/21 History furosemide 40 mg PO DAILY 03/22/21 03/22/21 03/21/21 History Allergies Allergy/AdvReac Type Severity Reaction Status Date / Time apricot Allergy Unknown Verified 03/08/21 09:21 Penicillins Allergy Unknown Verified 03/08/21 09:21 Current Medications Current Medications Generic Name Dose Route Start Last Admin Trade Name Freq PRN Reason Stop Dose Admin Atorvastatin Calcium 80 mg 03/22/21 09:00 03/22/21 07:59 Atorvastatin 40 Mg Tablet PO 80 mg DAILY NIDHI Administration Furosemide 60 mg 03/22/21 12:15 03/22/21 13:36 Furosemide 10 Mg/Ml Sdv 10ml IVP 60 mg Q12H NIDHI Administration Guaifenesin/Dextromethorphan 10 ml 03/21/21 23:24 03/21/21 23:57 Guaifenesin-Dextromethorphan Udc 10 Ml PO 10 ml Q4H PRN Administration COUGH Insulin Aspart 0 unit 03/21/21 22:34 03/22/21 13:21 Insulin Aspart 100 Unit/1 Ml SUBCUT Not Given WM&BEDTIME NIDHI Protocol Pantoprazole Sodium 40 mg 03/22/21 09:00 03/22/21 08:02 Pantoprazole 40 Mg Sdv IVP 40 mg BID NIDHI Administration PFSH Acute PFSH: Medical History (Updated 03/22/21 @ 13:54 by Jerome Obrien MD) COPD (chronic obstructive pulmonary disease) Cyst Diabetes History of myocardial infarction in adulthood Hyperlipidemia Hypertension Umbilical hernia, incarcerated Surgical History (Updated 03/22/21 @ 13:53 by Jerome Obrien MD) H/O esophagogastroduodenoscopy History of colonoscopy with polypectomy History of coronary angioplasty with insertion of stent Hx of CABG Family History Denies family history of Anesthesia complication Bleeding disorder Social History Smoking and tobacco status: former smoker Quit status (tobacco): has quit using tobacco Year quit tobacco: 1983 [id number] Second hand smoke exposure: No Smoking risk assessment/counseling performed?: Yes Alcohol intake: former Adopted: No Caregiver/support person: Yes Lives independently: Yes Household members: spouse Housing: House Marital status: service: Yes Current occupational status: retired Pets and animals: No History of recent travel: No Leisure activites: exercise Sexually active: No Current gender identity: Male Mayra/Voodoo: Sabianist Special mayra needs: No Agree to transfusion: No Financial difficulty paying for basics: Decline to Answer Vitals/I&O/Wt Last Vital Signs Temp 98.0 F 03/22/21 10:41 Pulse 96 03/22/21 10:41 Resp 22 H 03/22/21 10:41 BP 140/74 03/22/21 10:41 Pulse Ox 99 03/22/21 10:41 03/21/21 03/22/21 03/22/21 22:59 06:59 14:59 Intake Total 0 / 985 985 / 985 Output Total 1200 / 1200 Balance 0 / 985 985 / 985 -1200 / -1200 Weight last 48 hrs Weight 213 lb 8 oz Physical Exam Narrative: EXAM NARRATIVE: HEENT: Normocephalic Eye: Sclera /conjunctiva normal Abdomen: Soft to palpation, asymptomatic incarcerated umbilical hernia Neurological: Oriented to place person and time Skin: Intact, no lesions appreciated on gross exam Data Micro: Micro: Microbiology 03/22/21 13:11 Blood Culture - Pr eliminary Blood SPECIMEN [facility] VADIM 03/22/21 13:05 Blood Culture - Pr eliminary Blood SPECIMEN [facility] A&P Assessment and plan (1) Umbilical hernia, incarcerated: Currently asymptomatic, continue observation Status: Acute (2) Anemia: 70-year-old male with a mass on the uncinate process who presents with a hemoglobin of 7.3. No runs of active GI bleed. His last panendoscopy was 4 years ago and will therefore plan for a panendoscopy tomorrow Procedure, risks, benefits and alternatives have been discussed with the patient who wishes to proceed with surgery. N.p.o. after midnight Status: Acute Consult Attestations Medical Necessity Statement: As per attending physician Coding Level of Care Code Acute Accounting Practice Manager for Chg Fwd Diagnoses Umbilical hernia, incarcerated K42.0 Anemia D64.9
[2021-03-22] MEDS: cefTRIAXone 1,000 MG in sodium chloride 0.9% (plus) 50 ML 100 MG IV (14:09)
[2021-03-22 14:31] LABS: Add Urine Culture? No; Bacteria Urine TRACE /hpf; Bilirubin Urine Neg (Negative); Blood Urine Neg (Negative); Glucose Urine UA Norm (Normal); Ketones Urine Negative (Negative); Leukocyte Esterase Urine Negative (Negative); Nitrate Urine Negative (Negative); Protein Urine Neg (Negative); Specific Gravity, Urine 1.005 (1.005-1.030); Urine Appearance Clear (CLEAR); Urine Color Straw (Yellow); Urobilinogen Urine Norm (Negative); WBC Urine RARE /hpf (0-5); pH Urine 7 (5-7)
[2021-03-22] MEDS: clopidogrel 75 mg Tablet PO (14:33)
[2021-03-22] MEDS: ipratropium-albuterol 3 mL Neb INHALATION ×2 (14:40→20:35)
--- NOTE | 2021-03-22 14:43 | PC.RESP ---
PULMONARY REHAB INFORMATION SENT TO PATIENT.
[2021-03-22 16:33] LABS: Glucose Point of Care 183 mg/dL (70-110)
[2021-03-22] MEDS: magnesium citrate Btl 296 mL PO ×2 (16:38→22:24)
[2021-03-22] MEDS: bisacodyl 5 mg Tablet 40 MG PO (16:38)
[2021-03-22] MEDS: benzonatate 100 mg Capsule PO ×2 (16:39→22:24)
--- NOTE | 2021-03-22 16:55 | PC.NURSE ---
physician notified Pt stated that surgeon would proceed the EGD and he will look into the colonoscopy report previously. Notified Dr. Obrien via phone and he stated pt had colonoscopy 4 yrs ago and would proceed to get colonoscopy. Informed pt on this. Pt verbalizes understanding.
[2021-03-22] MEDS: ferrous gluconate 324 mg Tablet PO (17:20)
[2021-03-22] MEDS: metoprolol tartrate 50 mg Tablet 100 MG PO (17:35)
[2021-03-22 20:21] LABS: Glucose Point of Care 277 mg/dL (70-110)
[2021-03-22] MEDS: budesonide 0.5 mg/2 mL Neb INHALATION (20:35)
--- NOTE | 2021-03-22 22:34 | USCV_ITS ---
Torey Kaba Age: 70 Gender: M : 1950 Exam Date: 03/22/2021 06:17 Ordering Phys: Bon Moralez MD Technologist: Carmela Bee Exam Location: [facility] [place] Indication: NSTEMI BP: 151 / 68 HR: 99 Rhythm: Sinus Technical Quality: Adequate MEASUREMENTS (Male / Female) Normal Values 2D ECHO LV Diastolic Diameter PLAX 5.5 cm 4.2 - 5.9 / 3.9 - 5.3 cm LV Systolic Diameter PLAX 4.2 cm LV Chamber Size 4.9 cm IVS Diastolic Thickness 1.3 cm 0.6 - 1.0 / 0.6 - 0.9 cm IVS Systolic Thickness 1.6 cm LVPW Diastolic Thickness 1.8 cm 0.6 - 1.0 / 0.6 - 0.9 cm LVPW Systolic Thickness 1.9 cm RV Chamber Size 3.1 cm LVOT Diameter 2.0 cm LV Ejection Fraction 2D Teich 46.5 % LV Ejection Fraction MOD 2C 58.9 % LV Ejection Fraction 2C AL 61.2 % LA Diameter 5.6 cm LA Width 4.0 cm LA Height 4.8 cm RA Width 3.7 cm RA Height 5.0 cm Aorta at Sinotubular Diameter 3.1 cm M-MODE LV Diastolic Diameter MM 5.8 cm 4.2 - 5.9 / 3.9 - 5.3 cm LV Systolic Diameter MM 3.7 cm LV Ejection Fraction MM Teich 64.7 % IVS Diastolic Thickness MM 1.3 cm 0.6 - 1.0 / 0.6 - 0.9 cm IVS Systolic Thickness MM 2.1 cm LVPW Diastolic Thickness MM 1.9 cm 0.6 - 1.0 / 0.6 - 0.9 cm LVPW Systolic Thickness MM 2.3 cm RV Diastolic Diameter MM 3.5 cm Aortic Annulus Diameter 3.0 cm LA Ao Ratio MM 2.0 MV E Point Septal Separation 0.8 cm FINDINGS Left Ventricle Normal left ventricular size with ejection fraction of 50 to 55%. Hypokinetic basal inferior wall segment. Right Ventricle The right ventricle is normal in size and function. Right Atrium The right atrium is normal in size. Left Atrium Moderately increased left atrial size. Mitral Valve Thickened mitral valve. Moderate mitral annular calcification. Moderatel mitral valve regurgitation. Aortic Valve Thickened aortic valve. Tricuspid Valve [id number] tricuspid valve regurgitation. Pulmonic Valve Pulmonic valve not well visualized. Pericardium Normal pericardium without effusion. Aorta Normal ascending aorta dimension. CONCLUSIONS Normal left ventricular size with borderline low ejection fraction of 50 to 55%. Wall motion abnormalities as mentioned above Moderately increased left atrial size. Mild to moderate tricuspid regurgitation Moderatel mitral valve regurgitation. Thickened mitral valve. Moderate mitral annular calcification. There is no pericardial effusion. There are no intracardiac masses. Comparison with the previous study is difficult because of the difference in the technical quality. Dr Cholo Kelsey MD FAC (Electronically Signed) Final Date: 22 March 2021 18:04 S
[2021-03-23] VITALS (17 sets, daily range): BP systolic 101–164; BP diastolic 51–87; PULSE 71–99; RESP 16–29; TEMP 36.3–36.7; O2SAT 92–99
[2021-03-23] MEDS: ipratropium-albuterol 3 mL Neb INHALATION ×3 (03:00→20:17)
[2021-03-23 05:16] LABS: Basophils # 0.1 10^3/uL (0.0-0.1); Basophils % 0.6 %; Eosinophils # 0.8 10^3/uL (0.0-0.8); Eosinophils % 7.1 %; Hematocrit 33.9 % (42.0-52.0); Hemoglobin 10.4 g/dL (11.7-16.6); Lymphocytes # 1.5 10^3/uL (0.8-4.8); Lymphocytes % 13.6 %; Mean Corpuscular HGB Conc 30.7 g/dL (30.0-36.0); Mean Corpuscular Hemoglobin 26.7 pg (28.0-34.0); Mean Corpuscular Volume 87.1 fL (80-94); Mean Platelet Volume 10.3 fL (7.4-10.4); Monocytes # 1.1 10^3/uL (0.2-0.9); Neutrophils # 7.45 10^3/uL (1.8-7.7); Neutrophils % 68.2 %; Nucleated Red Blood Cells % 0 %; Platelet Count 291 10^3/cmm (130-400); Red Blood Count 3.89 10^6/uL (4.1-5.3); Red Cell Distribution Width 15.5 % (12.1-15.1); White Blood Count 10.9 10^3/uL (4.0-10.0)
[2021-03-23 05:25] LABS: Estmated Average Glucose 111; Hemoglobin A1C 5.5 % (4.0-6.0)
[2021-03-23 05:39] LABS: Alanine Aminotransferase 11 U/L (0-41); Albumin Level 3.6 g/dL (3.5-5.2); Alkaline Phosphatase 79 IU/L (40-130); Anion Gap 14.7 (5-19); Aspartate Amino Transferase 19 U/L (0-40); Blood Urea Nitrogen 20 mg/dL (8-23); Calcium 8.4 mg/dL (8.5-10.5); Carbon Dioxide 22 mmol/L (22-29); Chloride 103 mmol/L (98-107); Chol HDL Ratio 3.64 mg/dL (1.0-5.00); Cholesterol 102 mg/dL (0-200); Globulin 3.3 g/dL (1.3-4.6); Glomerular Filtration Rate 54.9 mL/min (90-130); Glucose 137 mg/dL (65-115); HDL Cholesterol 28 mg/dL (60-100); LDL Cholesterol Calculated 58 mg/dL (50-129); Osmolality Calculated 287 mOsm/kg (285-295); Potassium 3.7 mmol/L (3.5-5.1); Sodium 136 mmol/L (136-145); Total Bilirubin 0.9 mg/dL (0.15-1.2); Total Protein 6.9 g/dL (6.6-8.7); Triglycerides 79 mg/dL (0-150); VLDL Cholestrol Calculation 16 mg/dL (0-30)
[2021-03-23 06:25] LABS: Glucose Point of Care 153 mg/dL (70-110)
[2021-03-23] MEDS: metoprolol tartrate 50 mg Tablet 100 MG PO ×2 (06:27→17:40)
[2021-03-23] MEDS: fluticasone nasal spray 16gm Btl 2 SPRAY INTRANASAL (06:27)
[2021-03-23] MEDS: budesonide 0.5 mg/2 mL Neb INHALATION ×2 (08:15→20:17)
[2021-03-23] MEDS: FUROsemide 10 mg/mL SDV 10mL 60 MG IVP (09:17)
[2021-03-23] MEDS: ferrous gluconate 324 mg Tablet PO ×2 (09:18→17:40)
[2021-03-23] MEDS: azithromycin 250 mg Tablet 500 MG PO (09:18)
[2021-03-23] MEDS: atorvastatin 40 mg Tablet 80 MG PO (09:19)
[2021-03-23] MEDS: clopidogrel 75 mg Tablet PO (09:20)
[2021-03-23] MEDS: pantoprazole 40 mg SDV IVP ×2 (09:21→17:40)
[2021-03-23] MEDS: benzonatate 100 mg Capsule PO ×2 (09:21→20:55)
[2021-03-23 11:15] LABS: Glucose Point of Care 215 mg/dL (70-110)
[2021-03-23] MEDS: sodium chloride 0.9% 1,000 ML 30 ML IV (13:09)
--- NOTE | 2021-03-23 13:39 | P.PN_ITS ---
Subjective Subjective: Interval history: No issues overnight, tolerated bowel prep Vitals/I&O/Wt Last Vital Signs Temp 97.4 F L 03/23/21 12:59 Pulse 87 03/23/21 12:59 Resp 18 03/23/21 12:59 BP 152/72 03/23/21 12:59 Pulse Ox 96 03/23/21 12:59 03/22/21 03/23/21 03/23/21 22:59 06:59 14:59 Intake Total 1160 / 1160 Output Total 1100 / 2650 350 / 2650 Balance 60 / -1490 -350 / -1490 Weight last 48 hrs Weight 213 lb 8 oz Physical Exam Narrative: EXAM NARRATIVE: Abdomen: Soft Data : 03/23/21 04:42 03/23/21 04:42 Micro: Microbiology 03/22/21 13:11 Blood Culture - Preliminary Blood NEGATIVE TO DATE 03/22/21 13:05 Blood Culture - Preliminary Blood NEGATIVE TO DATE 03/22/21 13:45 Gram Stain - Final Sputum - Expectorated Sputum 03/22/21 13:45 Legionella Urinary Antigen - Final Urine,Clean Catch 03/22/21 13:45 Bacterial Antigens - Final Urine Kidney A&P Assessment and plan (1) Anemia: Plan for EGD/colonoscopy under MAC today Status: Acute Attestations Medical Necessity Statement*: As per primary Coding Level of Care Code Acute Entry Level Financial Analyst for g Fwd Diagnoses Anemia D64.9
--- NOTE | 2021-03-23 13:47 | ANES.PREANE2 ---
Pre-Anesthetic Assessment Pre-Anesthetic Assessment: Height/Weight: Height 1.8 m Weight 96.842 kg Temp Pulse Resp BP Pulse Ox 97.4 F L 87 18 152/72 96 03/23/21 12:59 03/23/21 12:59 03/23/21 12:59 03/23/21 12:59 03/23/21 12:59 Preop Diagnosis: Anemia Proposed Procedure: Operation Date: 03/23/21 13:00 Proposed Procedures p EGD(Not Applicable) - Jerome Obrien MD s Colonoscopy(Not Applicable) - Jerome Obrien MD Was Beta Ximena taken within 24 hours: Yes Last intake: Intake Last Liquid Date 03/22/21 Last Liquid Time 22:00 Last Solid Date 03/21/21 Last Solid Time 20:00 Social: Social History: No alcohol and No tobacco Packs per day: ex-smoker Exam: Pre-Anes Outpt Exam: alert, oriented x 3, clear to auscultation bilaterally and regular rate & rhythm Airway: Submandibular: WNL Cervical ROM: WNL MP: 2 Dentition: Full History/ROS: No significant history except as noted and No significant complaints Pulmonary: Pulmonary: COPD, Cough, SALAMANCA and SOB CV/HEM: CV/HEM: CAD and HTN : : None reported Hepatic: Hepatic: None reported GI: GI: GERD Metabolic: Metabolic: None reported Musc/skel: Musc/skel: Weakness Neuropsych: Neuropsych: None reported Anesthetic Plan: ASA status: 3 Anesthesia: Anesthesia Evaluation and MAC Risk of > 500 ml blood loss (7ml/kg in children): No Meds/Allergies Current Medications: Current Medications Generic Name Dose Route Start Last Admin Trade Name Antelmo PRN Reason Stop Dose Admin Albuterol/Ipratrop ium 3 ml 03/22/21 15:00 03/23/21 08:15 Ipratropium-Albu terol 3 Ml Neb INHALATION 3 ml Q6H.RESPIRATORY S CH Administration Atorvastatin Calci um 80 mg 03/22/21 09:00 03/23/21 09:19 Atorvastatin 40 Mg Tablet PO 80 mg DAILY NIDHI Administration Azithromycin 500 mg 03/23/21 09:00 03/23/21 09:18 Azithromycin 250 Mg Tablet PO 500 mg DAILY NIDHI Administration Protocol Benzonatate 100 mg 03/22/21 15:00 03/23/21 09:21 Benzonatate 100 Mg Capsule PO 100 mg TID NIDHI Administration Budesonide 0.5 mg 03/22/21 20:00 03/23/21 08:15 Budesonide 0.5 M g/2 Ml Neb INHALATION 0.5 mg BID.RESPIRATORY S CH Administration Clopidogrel Bisulf ate 75 mg 03/22/21 09:00 03/23/21 09:20 Clopidogrel 75 M g Tablet PO 75 mg DAILY NIDHI Administration Ferrous Gluconate 324 mg 03/22/21 18:00 03/23/21 09:18 Ferrous Gluconat e 324 Mg Tablet PO 324 mg BIDWM NIDHI Administration Fluticasone Propio sally 2 spray 03/23/21 07:00 03/23/21 06:27 Fluticasone Nasa l [place] 16gm Btl INTRANASAL 2 spray DAILY@0700 NIDHI Administration Guaifenesin/Dextro methorphan 10 ml 03/21/21 23:24 03/21/21 23:57 Guaifenesin-Dext romethorphan Udc 1 0 Ml PO 10 ml Q4H PRN Administration COUGH Ceftriaxone Sodium 1,000 mg/ 50 mls @ 100 mls/ hr 03/22/21 13:00 03/22/21 15:55 Sodium Chloride IV Infused Q24H NIDHI Infusion Protocol Insulin Aspart 0 unit 03/21/21 22:34 03/23/21 11:06 Insulin Aspart 1 00 Unit/1 Ml SUBCUT Not Given WM&BEDTIME [facility] Protocol Metoprolol Tartrat e 100 mg 03/22/21 18:00 03/23/21 06:27 Metoprolol Tartr ate 50 Mg Tablet PO 100 mg BID@0700,1800 NIDHI Administration Pantoprazole Sodiu m 40 mg 03/22/21 09:00 03/23/21 09:21 Pantoprazole 40 Mg Sdv IVP 40 mg BID NIDHI Administration PFSH Anesthesia PFSH: Medical History (Updated 03/22/21 @ 17:21 by Cole Peraza MD) COPD (chronic obstructive pulmonary disease) Cyst Diabetes History of myocardial infarction in adulthood Hyperlipidemia Hypertension Umbilical hernia, incarcerated Surgical History (Updated 03/22/21 @ 13:53 by Jerome Obrien MD) H/O esophagogastroduodenoscopy History of colonoscopy with polypectomy History of coronary angioplasty with insertion of stent Hx of CABG Family History Denies family history of Anesthesia complication Bleeding disorder Social History Smoking and tobacco status: former smoker Quit status (tobacco): has quit using tobacco Year quit tobacco: 1983 [id number] Second hand smoke exposure: No Smoking risk assessment/counseling performed?: Yes Alcohol intake: former Adopted: No Caregiver/support person: Yes Lives independently: Yes Household members: spouse Housing: House Marital status: service: Yes Current occupational status: retired Pets and animals: No History of recent travel: No Leisure activites: exercise Sexually active: No Current gender identity: Male Mayra/Roman Catholic: Taoism Special mayra needs: No Agree to transfusion: No Financial difficulty paying for basics: Decline to Answer Data Anesthesia CBC & Chem 7: 03/23/21 04:42 03/23/21 04:42 Other Labs: Laboratory Results - last 48 hr 03/21/21 03/21/21 03/21/21 16:05 16:05 16:05 WBC 10.4 H RBC 2.80 L Hgb 7.3 L Hct 24.5 L MCV 87.5 MCH 26.1 L MCHC 29.8 L RDW 15.3 H Plt Count 308 MPV 11.2 H Neut % (Auto) 71.8 Lymph % (Auto) 12.7 [place] % (Auto) 9.1 Eos % (Auto) 5.2 Baso % (Auto) 0.8 Neut # (Auto) 7.47 Lymph # (Auto) 1.3 [place] # (Auto) 1.0 H Eos # (Auto) 0.5 Baso # (Auto) 0.1 Nucleated RBC % (auto) 0 Nucleated RBCs # 0.0 D-Dimer Sodium 136 Potassium 4.5 Chloride 104 Carbon Dioxide 21 L Anion Gap 15.5 BUN 23 Creatinine 1.3 H GFR Calculation 54.9 L Glucose 138 H POC Glucose Estimat Average Glucose Hemoglobin A1c Calculated Osmolality 288 Calcium 8.9 Magnesium Iron TIBC % Saturation Unsat Iron Binding Total Bilirubin 0.5 AST 14 ALT 10 Alkaline Phosphatase 76 Troponin T Baseline 123 H* Troponin T 120 Minute Delta Troponin T Troponin T Hi Sens 6Hr Troponin T Hi Sens 6Hr Delta NT-Pro-B Natriuret Pep 2155 H Total Protein 6.3 L Albumin 3.7 Globulin 2.6 Triglycerides Cholesterol LDL Cholesterol, Calc Total VLDL Cholesterol HDL Cholesterol Cholesterol/HDL Ratio Vitamin B12 Folate Procalcitonin TSH Urine Color Urine Appearance Urine pH Ur Specific [place] Urine Protein Urine Glucose (UA) Urine Ketones Urine Blood Urine Nitrate Urine Bilirubin Urine Urobilinogen Ur Leukocyte Esterase Urine RBC Urine WBC Ur Squamous Epith Cells Amorphous Sediment Urine Bacteria SARS-CoV-2 Ag (Rapid) Blood Type Rho(D) Type Antibody Screen Crossmatch 03/21/21 03/21/21 03/21/21 17:30 18:32 18:32 WBC RBC Hgb Hct MCV MCH MCHC RDW Plt Count MPV Neut % (Auto) Lymph % (Auto) [place] % (Auto) Eos % (Auto) Baso % (Auto) Neut # (Auto) Lymph # (Auto) [place] # (Auto) Eos # (Auto) Baso # (Auto) Nucleated RBC % (auto) Nucleated RBCs # D-Dimer Sodium Potassium Chloride Carbon Dioxide Anion Gap BUN Creatinine GFR Calculation Glucose POC Glucose Estimat Average Glucose Hemoglobin A1c Calculated Osmolality Calcium Magnesium Iron TIBC % Saturation Unsat Iron Binding Total Bilirubin AST ALT Alkaline Phosphatase Troponin T Baseline Troponin T 120 Minute 122.1 H Delta Troponin T -0.9 L Troponin T Hi Sens 6Hr Troponin T Hi Sens 6Hr Delta NT-Pro-B Natriuret Pep Total Protein Albumin Globulin Triglycerides Cholesterol LDL Cholesterol, Calc Total VLDL Cholesterol HDL Cholesterol Cholesterol/HDL Ratio Vitamin B12 Folate Procalcitonin TSH Urine Color Urine Appearance Urine pH Ur Specific [place] Urine Protein Urine Glucose (UA) Urine Ketones Urine Blood Urine Nitrate Urine Bilirubin Urine Urobilinogen Ur Leukocyte Esterase Urine RBC Urine WBC Ur Squamous Epith Cells Amorphous Sediment Urine Bacteria SARS-CoV-2 Ag (Rapid) Negative Blood Type O Positive Rho(D) Type Positive / 4+ Antibody Screen Negative Crossmatch See Detail 03/21/21 03/21/21 03/21/21 18:32 19:01 22:10 WBC RBC Hgb Hct MCV MCH MCHC RDW Plt Count MPV Neut % (Auto) Lymph % (Auto) [place] % (Auto) Eos % (Auto) Baso % (Auto) Neut # (Auto) Lymph # (Auto) [place] # (Auto) Eos # (Auto) Baso # (Auto) Nucleated RBC % (auto) Nucleated RBCs # D-Dimer Sodium Potassium Chloride Carbon Dioxide Anion Gap BUN Creatinine GFR Calculation Glucose POC Glucose 134 H Estimat Average Glucose Hemoglobin A1c Calculated Osmolality Calcium Magnesium Iron TIBC % Saturation Unsat Iron Binding Total Bilirubin AST ALT Alkaline Phosphatase Troponin T Baseline Troponin T 120 Minute Delta Troponin T Troponin T Hi Sens 6Hr 97.01 H Troponin T Hi Sens 6Hr Delta -25.99 L NT-Pro-B Natriuret Pep Total Protein Albumin Globulin Triglycerides Cholesterol LDL Cholesterol, Calc Total VLDL Cholesterol HDL Cholesterol Cholesterol/HDL Ratio Vitamin B12 Folate Procalcitonin 0.24 TSH Urine Color Urine Appearance Urine pH Ur Specific [place] Urine Protein Urine Glucose (UA) Urine Ketones Urine Blood Urine Nitrate Urine Bilirubin Urine Urobilinogen Ur Leukocyte Esterase Urine RBC Urine WBC Ur Squamous Epith Cells Amorphous Sediment Urine Bacteria SARS-CoV-2 Ag (Rapid) Blood Type Rho(D) Type Antibody Screen Crossmatch 03/21/21 03/22/21 03/22/21 22:57 02:55 02:55 WBC 10.6 H RBC 3.17 L Hgb 8.5 L Hct 27.7 L MCV 87.4 MCH 26.8 L MCHC 30.7 RDW 14.8 Plt Count 276 MPV 10.7 H Neut % (Auto) 73.0 Lymph % (Auto) 13.4 [place] % (Auto) 9.3 Eos % (Auto) 3.1 Baso % (Auto) 0.8 Neut # (Auto) 7.77 H Lymph # (Auto) 1.4 [place] # (Auto) 1.0 H Eos # (Auto) 0.3 Baso # (Auto) 0.1 Nucleated RBC % (auto) 0 Nucleated RBCs # 0.0 D-Dimer Sodium 142 Potassium 3.8 Chloride 106 Carbon Dioxide 23 Anion Gap 16.8 BUN 22 Creatinine 1.2 GFR Calculation 60.2 L Glucose 95 POC Glucose 307 H Estimat Average Glucose Hemoglobin A1c Calculated Osmolality 297 H Calcium 8.2 L Magnesium 2.0 Iron TIBC % Saturation Unsat Iron Binding Total Bilirubin AST ALT Alkaline Phosphatase Troponin T Baseline Troponin T 120 Minute Delta Troponin T Troponin T Hi Sens 6Hr Troponin T Hi Sens 6Hr Delta NT-Pro-B Natriuret Pep Total Protein Albumin Globulin Triglycerides Cholesterol LDL Cholesterol, Calc Total VLDL Cholesterol HDL Cholesterol Cholesterol/HDL Ratio Vitamin B12 Folate Procalcitonin TSH Urine Color Urine Appearance Urine pH Ur Specific [place] Urine Protein Urine Glucose (UA) Urine Ketones Urine Blood Urine Nitrate Urine Bilirubin Urine Urobilinogen Ur Leukocyte Esterase Urine RBC Urine WBC Ur Squamous Epith Cells Amorphous Sediment Urine Bacteria SARS-CoV-2 Ag (Rapid) Blood Type Rho(D) Type Antibody Screen Crossmatch 03/22/21 03/22/21 03/22/21 02:55 02:55 02:55 WBC RBC Hgb Hct MCV MCH MCHC RDW Plt Count MPV Neut % (Auto) Lymph % (Auto) [place] % (Auto) Eos % (Auto) Baso % (Auto) Neut # (Auto) Lymph # (Auto) [place] # (Auto) Eos # (Auto) Baso # (Auto) Nucleated RBC % (auto) Nucleated RBCs # D-Dimer Sodium Potassium Chloride Carbon Dioxide Anion Gap BUN Creatinine GFR Calculation Glucose POC Glucose Estimat Average Glucose Hemoglobin A1c Calculated Osmolality Calcium Magnesium Iron 23 L TIBC 330 % Saturation 6.9 L Unsat Iron Binding 307 Total Bilirubin AST ALT Alkaline Phosphatase Troponin T Baseline Troponin T 120 Minute Delta Troponin T Troponin T Hi Sens 6Hr Troponin T Hi Sens 6Hr Delta NT-Pro-B Natriuret Pep Total Protein Albumin Globulin Triglycerides Cholesterol LDL Cholesterol, Calc Total VLDL Cholesterol HDL Cholesterol Cholesterol/HDL Ratio Vitamin B12 542 Folate 8.7 Procalcitonin 0.10 TSH 1.79 Urine Color Urine Appearance Urine pH Ur Specific [place] Urine Protein Urine Glucose (UA) Urine Ketones Urine Blood Urine Nitrate Urine Bilirubin Urine Urobilinogen Ur Leukocyte Esterase Urine RBC Urine WBC Ur Squamous Epith Cells Amorphous Sediment Urine Bacteria SARS-CoV-2 Ag (Rapid) Blood Type Rho(D) Type Antibody Screen Crossmatch 03/22/21 03/22/21 03/22/21 06:33 10:43 13:11 WBC RBC Hgb Hct MCV MCH MCHC RDW Plt Count MPV Neut % (Auto) Lymph % (Auto) [place] % (Auto) Eos % (Auto) Baso % (Auto) Neut # (Auto) Lymph # (Auto) [place] # (Auto) Eos # (Auto) Baso # (Auto) Nucleated RBC % (auto) Nucleated RBCs # D-Dimer 1.11 H Sodium Potassium Chloride Carbon Dioxide Anion Gap BUN Creatinine GFR Calculation Glucose POC Glucose 119 H 151 H Estimat Average Glucose Hemoglobin A1c Calculated Osmolality Calcium Magnesium Iron TIBC % Saturation Unsat Iron Binding Total Bilirubin AST ALT Alkaline Phosphatase Troponin T Baseline Troponin T 120 Minute Delta Troponin T Troponin T Hi Sens 6Hr Troponin T Hi Sens 6Hr Delta NT-Pro-B Natriuret Pep Total Protein Albumin Globulin Triglycerides Cholesterol LDL Cholesterol, Calc Total VLDL Cholesterol HDL Cholesterol Cholesterol/HDL Ratio Vitamin B12 Folate Procalcitonin TSH Urine Color Urine Appearance Urine pH Ur Specific [place] Urine Protein Urine Glucose (UA) Urine Ketones Urine Blood Urine Nitrate Urine Bilirubin Urine Urobilinogen Ur Leukocyte Esterase Urine RBC Urine WBC Ur Squamous Epith Cells Amorphous Sediment Urine Bacteria SARS-CoV-2 Ag (Rapid) Blood Type Rho(D) Type Antibody Screen Crossmatch 03/22/21 03/22/21 03/22/21 13:45 16:29 20:17 WBC RBC Hgb Hct MCV MCH MCHC RDW Plt Count MPV Neut % (Auto) Lymph % (Auto) [place] % (Auto) Eos % (Auto) Baso % (Auto) Neut # (Auto) Lymph # (Auto) [place] # (Auto) Eos # (Auto) Baso # (Auto) Nucleated RBC % (auto) Nucleated RBCs # D-Dimer Sodium Potassium Chloride Carbon Dioxide Anion Gap BUN Creatinine GFR Calculation Glucose POC Glucose 183 H 277 H Estimat Average Glucose Hemoglobin A1c Calculated Osmolality Calcium Magnesium Iron TIBC % Saturation Unsat Iron Binding Total Bilirubin AST ALT Alkaline Phosphatase Troponin T Baseline Troponin T 120 Minute Delta Troponin T Troponin T Hi Sens 6Hr Troponin T Hi Sens 6Hr Delta NT-Pro-B Natriuret Pep Total Protein Albumin Globulin Triglycerides Cholesterol LDL Cholesterol, Calc Total VLDL Cholesterol HDL Cholesterol Cholesterol/HDL Ratio Vitamin B12 Folate Procalcitonin TSH Urine Color Straw Urine Appearance Clear Urine pH 7 Ur Specific [place] 1.005 Urine Protein Neg Urine Glucose (UA) Norm Urine Ketones Negative Urine Blood Neg Urine Nitrate Negative Urine Bilirubin Neg Urine Urobilinogen Norm Ur Leukocyte Esterase Negative Urine RBC None Urine WBC Rare Ur Squamous Epith Cells None Amorphous Sediment Not Reportable Urine Bacteria Trace SARS-CoV-2 Ag (Rapid) Blood Type Rho(D) Type Antibody Screen Crossmatch 03/23/21 03/23/21 03/23/21 04:42 04:42 04:42 WBC 10.9 H RBC 3.89 L Hgb 10.4 L Hct 33.9 L MCV 87.1 MCH 26.7 L MCHC 30.7 RDW 15.5 H Plt Count 291 MPV 10.3 Neut % (Auto) 68.2 Lymph % (Auto) 13.6 [place] % (Auto) 10.0 Eos % (Auto) 7.1 Baso % (Auto) 0.6 Neut # (Auto) 7.45 Lymph # (Auto) 1.5 [place] # (Auto) 1.1 H Eos # (Auto) 0.8 Baso # (Auto) 0.1 Nucleated RBC % (auto) 0 Nucleated RBCs # 0.0 D-Dimer Sodium 136 Potassium 3.7 Chloride 103 Carbon Dioxide 22 Anion Gap 14.7 BUN 20 Creatinine 1.3 H GFR Calculation 54.9 L Glucose 137 H POC Glucose Estimat Average Glucose 111 Hemoglobin A1c 5.5 Calculated Osmolality 287 Calcium 8.4 L Magnesium Iron TIBC % Saturation Unsat Iron Binding Total Bilirubin 0.9 AST 19 ALT 11 Alkaline Phosphatase 79 Troponin T Baseline Troponin T 120 Minute Delta Troponin T Troponin T Hi Sens 6Hr Troponin T Hi Sens 6Hr Delta NT-Pro-B Natriuret Pep Total Protein 6.9 Albumin 3.6 Globulin 3.3 Triglycerides 79 Cholesterol 102 LDL Cholesterol, Calc 58 Total VLDL Cholesterol 16 HDL Cholesterol 28 L Cholesterol/HDL Ratio 3.64 Vitamin B12 Folate Procalcitonin TSH Urine Color Urine Appearance Urine pH Ur Specific [place] Urine Protein Urine Glucose (UA) Urine Ketones Urine Blood Urine Nitrate Urine Bilirubin Urine Urobilinogen Ur Leukocyte Esterase Urine RBC Urine WBC Ur Squamous Epith Cells Amorphous Sediment Urine Bacteria SARS-CoV-2 Ag (Rapid) Blood Type Rho(D) Type Antibody Screen Crossmatch 03/23/21 03/23/21 05:59 11:06 WBC RBC Hgb Hct MCV MCH MCHC RDW Plt Count MPV Neut % (Auto) Lymph % (Auto) [place] % (Auto) Eos % (Auto) Baso % (Auto) Neut # (Auto) Lymph # (Auto) [place] # (Auto) Eos # (Auto) Baso # (Auto) Nucleated RBC % (auto) Nucleated RBCs # D-Dimer Sodium Potassium Chloride Carbon Dioxide Anion Gap BUN Creatinine GFR Calculation Glucose POC Glucose 153 H 215 H Estimat Average Glucose Hemoglobin A1c Calculated Osmolality Calcium Magnesium Iron TIBC % Saturation Unsat Iron Binding Total Bilirubin AST ALT Alkaline Phosphatase Troponin T Baseline Troponin T 120 Minute Delta Troponin T Troponin T Hi Sens 6Hr Troponin T Hi Sens 6Hr Delta NT-Pro-B Natriuret Pep Total Protein Albumin Globulin Triglycerides Cholesterol LDL Cholesterol, Calc Total VLDL Cholesterol HDL Cholesterol Cholesterol/HDL Ratio Vitamin B12 Folate Procalcitonin TSH Urine Color Urine Appearance Urine pH Ur Specific [place] Urine Protein Urine Glucose (UA) Urine Ketones Urine Blood Urine Nitrate Urine Bilirubin Urine Urobilinogen Ur Leukocyte Esterase Urine RBC Urine WBC Ur Squamous Epith Cells Amorphous Sediment Urine Bacteria SARS-CoV-2 Ag (Rapid) Blood Type Rho(D) Type Antibody Screen Crossmatch Micro: Microbiology 03/22/21 13:11 Blood Culture - Preliminary Blood NEGATIVE TO DATE 03/22/21 13:05 Blood Culture - Preliminary Blood NEGATIVE TO DATE 03/22/21 13:45 Gram Stain - Final Sputum - Expectorated Sputum 03/22/21 13:45 Legionella Urinary Antigen - Final Urine,Clean Catch 03/22/21 13:45 Bacterial Antigens - Final Urine Kidney Cardiac Studies: No Data to Display
--- NOTE | 2021-03-23 14:37 | P.PN_ITS ---
Subjective Subjective: Interval history: Events overnight. States he is feeling a lot better. On examination seeing walking up the [place]. Denies any nausea, vomiting, headache. States still getting winded on on ambulation and lying down flat in bed. But better than before. Vitals/I&O/Wt Last Vital Signs Temp 97.4 F L 03/23/21 12:59 Pulse 87 03/23/21 12:59 Resp 18 03/23/21 12:59 BP 152/72 03/23/21 12:59 Pulse Ox 96 03/23/21 12:59 03/22/21 03/23/21 03/23/21 22:59 06:59 14:59 Intake Total 1160 / 1160 Output Total 1100 / 2300 350 / 2650 Balance 60 / -1140 -350 / -1490 Weight last 48 hrs Weight 96.842 kg Physical Exam Narrative: EXAM NARRATIVE: General: No acute distress, AO x3, jovial, on nasal cannula HEENT: PERRLA, pupils bilaterally equal and reactive Chest: Normal vesicular breath sounds, bilateral basilar rhonchi, occasional crackles all over the lung mueller diffused, equal good air entry bilaterally CVS: S1-S2 regular, no murmurs, no tachycardia, no gallops, no rubs Abdomen: Soft, nontender, no organomegaly, bowel sounds present Neuro: No focal deficits, no facial deformity, AO x3, power 5/5 in all limbs Data : 03/23/21 04:42 03/23/21 04:42 Other Labs: Laboratory Results WBC 10.9 10^3/uL (4.0-10.0) H 03/23/21 04:42 RBC 3.89 10^6/uL (4.1-5.3) L 03/23/21 04:42 Hgb 10.4 g/dL (11.7-16.6) L 03/23/21 04:42 Hct 33.9 % (42.0-52.0) L 03/23/21 04:42 MCV 87.1 fL (80-94) 03/23/21 04:42 MCH 26.7 pg (28.0-34.0) L 03/23/21 04:42 MCHC 30.7 g/dL (30.0-36.0) 03/23/21 04:42 RDW 15.5 % (12.1-15.1) H 03/23/21 04:42 Plt Count 291 10^3/cmm (130-400) 03/23/21 04:42 MPV 10.3 fL (7.4-10.4) 03/23/21 04:42 Neut % (Auto) 68.2 % 03/23/21 04:42 Lymph % (Auto) 13.6 % 03/23/21 04:42 Dukes % (Auto) 10.0 % 03/23/21 04:42 Eos % (Auto) 7.1 % 03/23/21 04:42 Baso % (Auto) 0.6 % 03/23/21 04:42 Neut # (Auto) 7.45 10^3/uL (1.8-7.7) 03/23/21 04:42 Lymph # (Auto) 1.5 10^3/uL (0.8-4.8) 03/23/21 04:42 Dukes # (Auto) 1.1 10^3/uL (0.2-0.9) H 03/23/21 04:42 Eos # (Auto) 0.8 10^3/uL (0.0-0.8) 03/23/21 04:42 Baso # (Auto) 0.1 10^3/uL (0.0-0.1) 03/23/21 04:42 Nucleated RBC % (auto) 0 % 03/23/21 04:42 Nucleated RBCs # 0.0 /100WBC 03/23/21 04:42 D-Dimer 1.11 ug/mIFEU (0-0.59) H 03/22/21 13:11 Sodium 136 mmol/L (136-145) 03/23/21 04:42 Potassium 3.7 mmol/L (3.5-5.1) 03/23/21 04:42 Chloride 103 mmol/L (98-107) 03/23/21 04:42 Carbon Dioxide 22 mmol/L (22-29) 03/23/21 04:42 Anion Gap 14.7 (5-19) 03/23/21 04:42 BUN 20 mg/dL (8-23) 03/23/21 04:42 Creatinine 1.3 mg/dL (0.7-1.2) H 03/23/21 04:42 GFR Calculation 54.9 mL/min (90-130) L 03/23/21 04:42 Glucose 137 mg/dL (65-115) H 03/23/21 04:42 POC Glucose 215 mg/dL (70-110) H 03/23/21 11:06 Estimat Average Glucose 111 03/23/21 04:42 Hemoglobin A1c 5.5 % (4.0-6.0) 03/23/21 04:42 Calculated Osmolality 287 mOsm/kg (285-295) 03/23/21 04:42 Calcium 8.4 mg/dL (8.5-10.5) L 03/23/21 04:42 Magnesium 2.0 mg/dL (1.7-2.3) 03/22/21 02:55 Iron 23 ug/dL (59-158) L 03/22/21 02:55 TIBC 330 mcg/dl 03/22/21 02:55 % Saturation 6.9 % (20-50) L 03/22/21 02:55 Unsat Iron Binding 307 ug/dL (112-347) 03/22/21 02:55 Total Bilirubin 0.9 mg/dL (0.15-1.2) 03/23/21 04:42 AST 19 U/L (0-40) 03/23/21 04:42 ALT 11 U/L (0-41) 03/23/21 04:42 Alkaline Phosphatase 79 IU/L (40-130) 03/23/21 04:42 Troponin T Baseline 123 ng/L (0-15) H* 03/21/21 16:05 Troponin T 120 Minute 122.1 ng/L (0-15) H 03/21/21 18:32 Delta Troponin T -0.9 ABS# (0-10) L 03/21/21 18:32 Troponin T Hi Sens 6Hr 97.01 ng/L (0-15) H 03/21/21 22:10 Troponin T Hi Sens 6Hr Delta -25.99 ng/L (0-12) L 03/21/21 22:10 NT-Pro-B Natriuret Pep 2155 pg/mL (0-125) H 03/21/21 16:05 Total Protein 6.9 g/dL (6.6-8.7) 03/23/21 04:42 Albumin 3.6 g/dL (3.5-5.2) 03/23/21 04:42 Globulin 3.3 g/dL (1.3-4.6) 03/23/21 04:42 Triglycerides 79 mg/dL (0-150) 03/23/21 04:42 Cholesterol 102 mg/dL (0-200) 03/23/21 04:42 LDL Cholesterol, Calc 58 mg/dL (50-129) 03/23/21 04:42 Total VLDL Cholesterol 16 mg/dL (0-30) 03/23/21 04:42 HDL Cholesterol 28 mg/dL (60-100) L 03/23/21 04:42 Cholesterol/HDL Ratio 3.64 mg/dL (1.0-5.00) 03/23/21 04:42 Vitamin B12 542 pg/mL (232-1245) 03/22/21 02:55 Folate 8.7 ng/mL (4.5-32.2) 03/22/21 02:55 Procalcitonin 0.10 ng/mL (0-0.5) 03/22/21 02:55 TSH 1.79 uIU/mL (0.27-4.20) 03/22/21 02:55 Urine Color Straw (Yellow) 03/22/21 13:45 Urine Appearance Clear (CLEAR) 03/22/21 13:45 Urine pH 7 (5-7) 03/22/21 13:45 Ur Specific [place] 1.005 (1.005-1.030) 03/22/21 13:45 Urine Protein Neg (Negative) 03/22/21 13:45 Urine Glucose (UA) Norm (Normal) 03/22/21 13:45 Urine Ketones Negative (Negative) 03/22/21 13:45 Urine Blood Neg (Negative) 03/22/21 13:45 Urine Nitrate Negative (Negative) 03/22/21 13:45 Urine Bilirubin Neg (Negative) 03/22/21 13:45 Urine Urobilinogen Norm mg/dL (Negative) 03/22/21 13:45 Ur Leukocyte Esterase Negative (Negative) 03/22/21 13:45 Urine RBC None /hpf (0-2) 03/22/21 13:45 Urine WBC Rare /hpf (0-5) 03/22/21 13:45 Ur Squamous Epith Cells None /hpf (0-5) 03/22/21 13:45 Amorphous Sediment Not Reportable 03/22/21 13:45 Urine Bacteria Trace /hpf (NONE) 03/22/21 13:45 SARS-CoV-2 Ag (Rapid) Negative (Negative) 03/21/21 17:30 Blood Type O Positive 03/21/21 18:32 Rho(D) Type Positive / 4+ 03/21/21 18:32 Antibody Screen Negative 03/21/21 18:32 Crossmatch See Detail 03/21/21 18:32 Impressions Chest X-Ray 03/21/21 16:40 IMPRESSION: Streaky opacities at the left lung base are consistent with pneumonia. Chest CT 03/21/21 19:51 IMPRESSION: 1. Multifocal bilateral pulmonary ground-glass opacities and infiltrates are consistent with atypical pneumonia. 2. Small left pleural effusion with peripheral enhancement and minimal internal complexity raises concern for possible empyema. 3. Moderate right pleural effusion. 4. Multivessel atherosclerotic disease which involves the coronary arteries. 5. There are centrilobular emphysematous changes in the bilateral lungs. Radiation Dose CTDIVOL = (mGy): DLP = 1021.88 (mGy-cm) Pulmonary Perfusion Imaging 03/23/21 14:53 IMPRESSION: 1. Low probability for pulmonary embolus. Micro: Microbiology 03/22/21 13:11 Blood Culture - Preliminary Blood NEGATIVE TO DATE 03/22/21 13:05 Blood Culture - Preliminary Blood NEGATIVE TO DATE 03/22/21 13:45 Gram Stain - Final Sputum - Expectorated Sputum 03/22/21 13:45 Legionella Urinary Antigen - Final Urine,Clean Catch 03/22/21 13:45 Bacterial Antigens - Final Urine Kidney A&P Assessment and plan (1) Hypoxia: Status: Acute (2) CHF exacerbation: Status: Acute Qualifiers: Heart failure type: diastolic Qualified Code(s): I50.33 - Acute on chronic diastolic (congestive) heart failure (3) Restrictive lung disease: Status: Acute (4) Community acquired pneumonia: Status: Acute Qualifiers: Laterality: left Lung location: lower lobe of lung Qualified Code(s): J18.9 - Pneumonia, unspecified organism (5) NSTEMI (non-ST elevated myocardial infarction): Status: Acute (6) Normocytic anemia: Status: Acute (7) Acute kidney injury: Status: Acute (8) Pleural effusion: Status: Acute Additional A&P Information Acute hypoxia: Most likely a combination of diastolic congestive heart failure along with possible atypical pneumonia. Net 500 cc negative since admission. Switch to oral Lasix 80 mg daily. Strict input output charting. Daily weights. Fluid restriction up to 1500 cc. Echocardiogram shows an EF of 50 to 55%, hypokinetic basal inferior wall segment, moderate LA size, mild to moderate TR, mild to moderate MR. For pneumonia: Concerning for infiltrates on CT chest though could be because of CHF as well. COVID-19 rapid antigen negative. Legionella, bacterial antigen negative. MRSA swab negative. For now continue azithromycin and ceftriaxone. If remains afebrile next 24 hours will discontinue antibiotics and monitor. Ventilation/perfusion scan low quality for PE. Oxygen supplementation keeping saturation over 90%. Non-ST elevation MA: Diffuse ST-T depressions along with elevated troponin on admission. Troponin have trended down. Continue with Plavix, statins. For now hold off on aspirin and full dose Lovenox given GI bleed. Continue with home dose of metoprolol. Appreciate cardiology recommendations. As per cardiology recommendations they would want patient's hemoglobin to be around 9-10. Will transfuse 1 more unit of PRBC. Once patient clinically stable from anemia and hypoxia can plan for stress test. Acute blood loss anemia: Secondary to melena. Post 3 unit blood transfusion. We will consult surgery for possible EGD/colonoscopy. Continue with IV Protonix 40 twice daily. Plan for EGD/colonoscopy today. Hypertension: Goal blood pressure less than 140/90 mmHg. For now continue with home dose of metoprolol. For now hold off on lisinopril and amlodipine. Will reintroduce medications accordingly. WHIT: Baseline creatinine around 1. Resolved to 1.2. Most likely because of dehydration. We will continue to monitor. Medical reconciliation done for nephrotoxic drugs. Full code NPO. DVT prophylaxis with SCDs. Patient's care plan discussed in detail with patient and family at bedside. All the questions were answered. Attestations Medical Necessity Statement*: Patient requires further hospitalization for management of acute hypoxia because of CHF exacerbation, possible pneumonia, non-ST elevation MA, acute blood loss anemia in setting of possible pancreatic malignancy Time Spent in Patient Care: Greater than 35 minutes (>than 50% of time spent in counselling and/or direct pt care on unit) . 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
--- NOTE | 2021-03-23 14:50 | ANE.PACU2 ---
Inpatient post-anesthesia follow up: Airway intact: Yes Vital signs: Temperature 97.4 F Pulse Rate [Left R adial] 100 Pulse Rate 76 Respiratory Rate 18 Blood Pressure [Le ft Arm] 121/71 Blood Pressure 127/63 Pulse Oximetry 92 Oxygen Delivery Me thod Nasal Cannula Oxygen Flow Rate 4 Fraction of Inspir ed Oxygen Hydration adequate: Yes Nausea and vomiting: No Pain level: 1 Mental status: Baseline
--- NOTE | 2021-03-23 14:53 | NM_ITS ---
WS: [id number] NUCLEAR MEDICINE LUNG VENTILATION AND PERFUSION CLINICAL INFORMATION: pe TECHNIQUE: Ventilation/perfusion lung scan with 33.0 mCi technetium 99m DTPA. 5.3 mCi technetium 99m MAA COMPARISON: Chest CT March 21, 2021 . FINDINGS: Comparison chest CT March 21, 2021. Chest CT demonstrates small right greater than left pleural effusi ons. Bibasilar atelectasis Normal bilateral symmetric perfusion. Radiotracer deposition along the central bronchi on the ventila tory images. Patchy ventilatory uptake consistent with emphysematous change. No mismatched or lobar v entilation/perfusion defects to indicate pulmonary embolus. NM/NM pul vent and perfus* [id number] IMPRESSION: 1. Low probability for pulmonary embolus.
[2021-03-23 16:20] LABS: Glucose Point of Care 193 mg/dL (70-110)
--- NOTE | 2021-03-23 16:50 | PC.NURSE ---
pt had vq scan this a.m. and egd/colonoscopy this afternoon.tolerated both procedures well.
--- NOTE | 2021-03-23 18:49 | ECG_ITS ---
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 Measurements Intervals [place] Rate: 79 P: 43 [place]: 198 QRS: 44 QRSD: 148 T: 10 QT: 417 QTc: 480 Interpretive Statements SINUS RHYTHM POSSIBLE LEFT ATRIAL ENLARGEMENT [-0.1mV P WAVE IN V1/V2] RIGHT BUNDLE BRANCH BLOCK [120+ ms QRS DURATION, UPRIGHT V1, 40+ ms S IN I/aVL/V4/V5/V6] Compared to ECG 03/22/2021 00:28:57 Atrial flutter no longer present ST (T wave) deviation no longer present Electronically Signed On 03-25-2021 7:22:55 CDT by Miguelina Reyes M.D. [email or web address]
--- NOTE | 2021-03-23 18:51 | PM.PN ---
Subjective Subjective: Interval history: The patient had endoscopy study today. No bleeding lesions were identified. Patient denies any chest pain or chest tightness. No unusual shortness of breath. Hemoglobin is 10.5. No evidence of any active bleed. Medications: Reviewed: Yes Medication Review Details: Current Medications Albuterol/Ipratropium (Ipratropium-Albuterol 3 Ml Neb) 3 ml INHALATION Q6H PRN PRN Reason: SHORTNESS OF BREATH Albuterol/Ipratropium (Ipratropium-Albuterol 3 Ml Neb) 3 ml INHALATION Q6H.RESPIRATORY [facility] Last Admin: 03/23/21 08:15 Dose: 3 ml Documented by: Atorvastatin Calcium (Atorvastatin 40 Mg Tablet) 80 mg PO DAILY [facility] Last Admin: 03/23/21 09:19 Dose: 80 mg Documented by: Azithromycin (Azithromycin 250 Mg Tablet) 500 mg PO DAILY [facility]; Protocol Last Admin: 03/23/21 09:18 Dose: 500 mg Documented by: Benzonatate (Benzonatate 100 Mg Capsule) 100 mg PO TID [facility] Last Admin: 03/23/21 09:21 Dose: 100 mg Documented by: Budesonide (Budesonide 0.5 Mg/2 Ml Neb) 0.5 mg INHALATION BID.RESPIRATORY [facility] Last Admin: 03/23/21 08:15 Dose: 0.5 mg Documented by: Clopidogrel Bisulfate (Clopidogrel 75 Mg Tablet) 75 mg PO DAILY [facility] Last Admin: 03/23/21 09:20 Dose: 75 mg Documented by: Dextrose (Dextrose 50% Syringe 50 Ml) 25 ml IVP ONCE PRN; Protocol PRN Reason: hypoglycemia protocol Dextrose (Dextrose 50% Syringe 50 Ml) 50 ml IVP PRN PRN; Protocol PRN Reason: hypoglycemia protocol Ferrous Gluconate (Ferrous Gluconate 324 Mg Tablet) 324 mg PO BIDWM [facility] Last Admin: 03/23/21 17:40 Dose: 324 mg Documented by: Fluticasone Propionate (Fluticasone Nasal [place] 16gm Btl) 2 spray INTRANASAL DAILY@0700 [facility] Last Admin: 03/23/21 06:27 Dose: 2 spray Documented by: Furosemide (Furosemide 40 Mg Tablet) 60 mg PO DAILY@0800 [facility] Glucagon (Glucagon 1 Mg/Ml Inj 1 Ml) 1 mg IM ONCE PRN; Protocol PRN Reason: Adult Acute Hypoglycemia Prot. Guaifenesin/Dextromethorphan (Guaifenesin-Dextromethorphan Udc 10 Ml) 10 ml PO Q4H PRN PRN Reason: COUGH Last Admin: 03/21/21 23:57 Dose: 10 ml Documented by: Dextrose (D5w) 500 mls @ 100 mls/hr IV ONCE PRN; Protocol PRN Reason: Adult Acute Hypoglycemia Prot Ceftriaxone Sodium 1,000 mg/ (Sodium Chloride) 50 mls @ 100 mls/hr IV Q24H NIDHI; Protocol Last Infusion: 03/22/21 15:55 Dose: Infused Documented by: Insulin Aspart (Insulin Aspart 100 Unit/1 Ml) 0 unit SUBCUT WM&BEDTIME NIDHI; Protocol Last Admin: 03/23/21 17:39 Dose: 6 unit Documented by: Metoprolol Tartrate (Metoprolol Tartrate 50 Mg Tablet) 100 mg PO BID@0700,1800 [facility] Last Admin: 03/23/21 17:40 Dose: 100 mg Documented by: Pantoprazole Sodium (Pantoprazole 40 Mg Sdv) 40 mg IVP BID [facility] Last Admin: 03/23/21 17:40 Dose: 40 mg Documented by: Vitals/I&O/Wt Last Vital Signs Temp 97.4 F L 03/23/21 14:42 Pulse 92 03/23/21 16:37 Resp 18 03/23/21 16:37 BP 113/74 03/23/21 16:37 Pulse Ox 96 03/23/21 16:37 03/23/21 03/23/21 03/23/21 06:59 14:59 22:59 Intake Total 60 / 60 100 / 160 Output Total 350 / 2650 Balance -350 / -1490 60 / 60 100 / 160 Physical Exam Narrative: EXAM NARRATIVE: GENERAL: The patient is alert and oriented times three. Not in any acute distress. HEENT: Minimal pallor, no icterus or lymphadenopathy. The pupils are reactant to light. Oral cavity: There are no mucous membrane lesions. NECK: Trachea appears to be central. No masses noted. No JVD or thyromegaly appreciated. Carotid bruit on the right side. RESPIRATORY: Chest is symmetrical. No intercostals muscle retraction or any accessory muscle activation. There is no chest wall tenderness. Breath sounds are heard bilaterally. No rales or rhonchi heard. No evidence of any consolidation. BREASTS: Deferred. HEART: PMI could not be palpated. No palpable precordial events. S1 and S2 are normal. No S3 or S4 heard. No pericardial rub or any click heard. ABDOMEN: No vessel pulsations or distention. No tenderness. No organomegaly appreciated. No abdominal bruit. Bowel sounds are normally heard. : Deferred. RECTAL: Deferred. LYMPHATIC: No lymphadenopathy noted in the neck or groin. EXTREMITIES: No edema or cyanosis. No clubbing. Varicose veins and features of chronic venous stasis. The dorsalis pedis and posterior tibial tibial pulses are extremely weak on both sides MUSCULOSKELETAL: No acute joint deformities or swelling SKIN: Features of chronic venous stasis in both lower extremities. No rashes noted NEUROPSYCHIATRIC: The patient is alert and oriented x3. Appears to be in a good mood. The higher functions are grossly within normal limits. No tremors or rigidity noted. Data : 03/23/21 04:42 03/23/21 04:42 Other Labs: Laboratory Last Values WBC 10.9 10^3/uL (4.0-10.0) H 03/23/21 04:42 RBC 3.89 10^6/uL (4.1-5.3) L 03/23/21 04:42 Hgb 10.4 g/dL (11.7-16.6) L 03/23/21 04:42 Hct 33.9 % (42.0-52.0) L 03/23/21 04:42 MCV 87.1 fL (80-94) 03/23/21 04:42 MCH 26.7 pg (28.0-34.0) L 03/23/21 04:42 MCHC 30.7 g/dL (30.0-36.0) 03/23/21 04:42 RDW 15.5 % (12.1-15.1) H 03/23/21 04:42 Plt Count 291 10^3/cmm (130-400) 03/23/21 04:42 MPV 10.3 fL (7.4-10.4) 03/23/21 04:42 Neut % (Auto) 68.2 % 03/23/21 04:42 Lymph % (Auto) 13.6 % 03/23/21 04:42 [place] % (Auto) 10.0 % 03/23/21 04:42 Eos % (Auto) 7.1 % 03/23/21 04:42 Baso % (Auto) 0.6 % 03/23/21 04:42 Neut # (Auto) 7.45 10^3/uL (1.8-7.7) 03/23/21 04:42 Lymph # (Auto) 1.5 10^3/uL (0.8-4.8) 03/23/21 04:42 [place]erry # (Auto) 1.1 10^3/uL (0.2-0.9) H 03/23/21 04:42 Eos # (Auto) 0.8 10^3/uL (0.0-0.8) 03/23/21 04:42 Baso # (Auto) 0.1 10^3/uL (0.0-0.1) 03/23/21 04:42 Nucleated RBC % (auto) 0 % 03/23/21 04:42 Nucleated RBCs # 0.0 /100WBC 03/23/21 04:42 D-Dimer 1.11 ug/mIFEU (0-0.59) H 03/22/21 13:11 Sodium 136 mmol/L (136-145) 03/23/21 04:42 Potassium 3.7 mmol/L (3.5-5.1) 03/23/21 04:42 Chloride 103 mmol/L (98-107) 03/23/21 04:42 Carbon Dioxide 22 mmol/L (22-29) 03/23/21 04:42 Anion Gap 14.7 (5-19) 03/23/21 04:42 BUN 20 mg/dL (8-23) 03/23/21 04:42 Creatinine 1.3 mg/dL (0.7-1.2) H 03/23/21 04:42 GFR Calculation 54.9 mL/min (90-130) L 03/23/21 04:42 Glucose 137 mg/dL (65-115) H 03/23/21 04:42 POC Glucose 193 mg/dL (70-110) H 03/23/21 16:15 Estimat Average Glucose 111 03/23/21 04:42 Hemoglobin A1c 5.5 % (4.0-6.0) 03/23/21 04:42 Calculated Osmolality 287 mOsm/kg (285-295) 03/23/21 04:42 Calcium 8.4 mg/dL (8.5-10.5) L 03/23/21 04:42 Magnesium 2.0 mg/dL (1.7-2.3) 03/22/21 02:55 Iron 23 ug/dL (59-158) L 03/22/21 02:55 TIBC 330 mcg/dl 03/22/21 02:55 % Saturation 6.9 % (20-50) L 03/22/21 02:55 Unsat Iron Binding 307 ug/dL (112-347) 03/22/21 02:55 Total Bilirubin 0.9 mg/dL (0.15-1.2) 03/23/21 04:42 AST 19 U/L (0-40) 03/23/21 04:42 ALT 11 U/L (0-41) 03/23/21 04:42 Alkaline Phosphatase 79 IU/L (40-130) 03/23/21 04:42 Troponin T Baseline 123 ng/L (0-15) H* 03/21/21 16:05 Troponin T 120 Minute 122.1 ng/L (0-15) H 03/21/21 18:32 Delta Troponin T -0.9 ABS# (0-10) L 03/21/21 18:32 Troponin T Hi Sens 6Hr 97.01 ng/L (0-15) H 03/21/21 22:10 Troponin T Hi Sens 6Hr Delta -25.99 ng/L (0-12) L 03/21/21 22:10 NT-Pro-B Natriuret Pep 2155 pg/mL (0-125) H 03/21/21 16:05 Total Protein 6.9 g/dL (6.6-8.7) 03/23/21 04:42 Albumin 3.6 g/dL (3.5-5.2) 03/23/21 04:42 Globulin 3.3 g/dL (1.3-4.6) 03/23/21 04:42 Triglycerides 79 mg/dL (0-150) 03/23/21 04:42 Cholesterol 102 mg/dL (0-200) 03/23/21 04:42 LDL Cholesterol, Calc 58 mg/dL (50-129) 03/23/21 04:42 Total VLDL Cholesterol 16 mg/dL (0-30) 03/23/21 04:42 HDL Cholesterol 28 mg/dL (60-100) L 03/23/21 04:42 Cholesterol/HDL Ratio 3.64 mg/dL (1.0-5.00) 03/23/21 04:42 Vitamin B12 542 pg/mL (232-1245) 03/22/21 02:55 Folate 8.7 ng/mL (4.5-32.2) 03/22/21 02:55 Procalcitonin 0.10 ng/mL (0-0.5) 03/22/21 02:55 TSH 1.79 uIU/mL (0.27-4.20) 03/22/21 02:55 Urine Color Straw (Yellow) 03/22/21 13:45 Urine Appearance Clear (CLEAR) 03/22/21 13:45 Urine pH 7 (5-7) 03/22/21 13:45 Ur Specific [place] 1.005 (1.005-1.030) 03/22/21 13:45 Urine Protein Neg (Negative) 03/22/21 13:45 Urine Glucose (UA) Norm (Normal) 03/22/21 13:45 Urine Ketones Negative (Negative) 03/22/21 13:45 Urine Blood Neg (Negative) 03/22/21 13:45 Urine Nitrate Negative (Negative) 03/22/21 13:45 Urine Bilirubin Neg (Negative) 03/22/21 13:45 Urine Urobilinogen Norm mg/dL (Negative) 03/22/21 13:45 Ur Leukocyte Esterase Negative (Negative) 03/22/21 13:45 Urine RBC None /hpf (0-2) 03/22/21 13:45 Urine WBC Rare /hpf (0-5) 03/22/21 13:45 Ur Squamous Epith Cells None /hpf (0-5) 03/22/21 13:45 Amorphous Sediment Not Reportable 03/22/21 13:45 Urine Bacteria Trace /hpf (NONE) 03/22/21 13:45 SARS-CoV-2 Ag (Rapid) Negative (Negative) 03/21/21 17:30 Blood Type O Positive 03/21/21 18:32 Rho(D) Type Positive / 4+ 03/21/21 18:32 Antibody Screen Negative 03/21/21 18:32 Crossmatch See Detail 03/21/21 18:32 Micro: Microbiology 03/22/21 13:45 MRSA Culture - Final Nose 03/22/21 13:45 Gram Stain - Final Sputum - Expectorated Sputum Sputum Culture - Preliminary 03/22/21 13:11 Blood Culture - Preliminary Blood NEGATIVE TO DATE 03/22/21 13:05 Blood Culture - Preliminary Blood NEGATIVE TO DATE 03/22/21 13:45 Legionella Urinary Antigen - Final Urine,Clean Catch 03/22/21 13:45 Bacterial Antigens - Final Urine Kidney A&P Assessment and plan (1) Elevated troponin: Patient has no significant delta. And non-ST relation myocardial infarction is a consideration. However in view of the possible pneumonia and severe anemia, a type II myocardial infarction also is a consideration. Currently his hemoglobin seems to be stable. Since he has no chest pain or any specific cardiac symptoms, I may go ahead and do a myocardial perfusion imaging, to further evaluate his coronary status/graft status and decide on further management. This was discussed with the patient in detail which is understood well and consented to proceed. Status: Acute (2) Acute on chronic diastolic (congestive) heart failure: Patient may be carefully treated with with IV diuretics Status: Acute (3) Atherosclerosis of coronary artery of circle heart without angina pectoris: Patient is known to have 7 vessel coronary artery bypass surgery. We will try to get the records from [place]. We also will try to get the medical records from the [facility] specifically the recent cardiac catheterization report. In the meanwhile, he may continue on the current medications. We are still waiting for the records. Status: Acute Qualifiers: Coronary Disease-Associated Artery/Lesion type: circle artery Qualified Code(s): I25.10 - Atherosclerotic heart disease of circle coronary artery without angina pectoris (4) Normochromic normocytic anemia: Hemoglobin currently is around 10.5 and stable. Status: Acute (5) Acute kidney injury: The creatinine slightly elevated. Follow-up as per the nephrology Status: Acute (6) Carotid bruit: A carotid Doppler examination was reviewed. Patient has bilateral carotid artery disease. He has less than 50% stenosis on the right side and 50 to 69% stenosis on the left side. May continue on the current medications. Status: Acute Qualifiers: Laterality: right Qualified Code(s): R09.89 - Other specified symptoms and signs involving the circulatory and respiratory systems (7) Peripheral arterial occlusive disease: Patient appears to have a high-grade stenosis in the mid SFA on the right side and proximal iliac artery on the left side. He does not have any significant symptoms at this point. May consider intervention, if he starts having symptoms. Consider starting him on Pletal Status: Acute Additional A&P Information Patient's other problems are GI bleed Recent pancreatitis Pancreatic cyst at the uncinate process Hepatomegaly with steatosis Elevated CA 19-9 Pneumonia COPD Essential benign hypertension, currently normotensive. Type 2 diabetes. Dyslipidemia. After reviewing the patient's medical records, stress test report and also based on the patient's clinical progress, further recommendations will be made. We will do an EKG in the morning Attestations Medical Necessity Statement*: Patient requires continued hospital stay for close monitoring and further management Coding Level of Care Code Acute Child Care Cook for Chg Fwd Diagnoses Elevated troponin R77.8 Acute on chronic diastolic (congestive) heart failure I50.33 Atherosclerosis of coronary artery of circle heart without angina pectoris I25.10 Coronary Disease-Associated Artery/Lesion type: circle artery Normochromic normocytic anemia D64.9 Acute kidney injury N17.9 Carotid bruit R09.89 Laterality: right Peripheral arterial occlusive disease I77.9
[2021-03-23 20:36] LABS: Glucose Point of Care 265 mg/dL (70-110)
[2021-03-24] VITALS (13 sets, daily range): BP systolic 112–141; BP diastolic 54–67; PULSE 72–97; RESP 16–28; TEMP 36.7–36.8; O2SAT 90–96
[2021-03-24] MEDS: guaiFENesin-dextromethorphan UDC 10 mL PO (02:37)
[2021-03-24] MEDS: ipratropium-albuterol 3 mL Neb INHALATION ×4 (03:40→20:00)
[2021-03-24 04:12] LABS: Basophils # 0.1 10^3/uL (0.0-0.1); Basophils % 1.1 %; Eosinophils # 0.9 10^3/uL (0.0-0.8); Hematocrit 32.2 % (42.0-52.0); Hemoglobin 9.9 g/dL (11.7-16.6); Lymphocytes # 1.5 10^3/uL (0.8-4.8); Lymphocytes % 15.6 %; Mean Corpuscular HGB Conc 30.7 g/dL (30.0-36.0); Mean Corpuscular Hemoglobin 27.2 pg (28.0-34.0); Mean Corpuscular Volume 88.5 fL (80-94); Mean Platelet Volume 10.5 fL (7.4-10.4); Monocytes # 0.9 10^3/uL (0.2-0.9); Monocytes % 9.1 %; Neutrophils # 5.99 10^3/uL (1.8-7.7); Neutrophils % 63.9 %; Nucleated Red Blood Cells % 0 %; Platelet Count 270 10^3/cmm (130-400); Red Blood Count 3.64 10^6/uL (4.1-5.3); Red Cell Distribution Width 15.5 % (12.1-15.1); White Blood Count 9.4 10^3/uL (4.0-10.0)
[2021-03-24 04:23] LABS: Alanine Aminotransferase 11 U/L (0-41); Albumin Level 3.7 g/dL (3.5-5.2); Alkaline Phosphatase 78 IU/L (40-130); Aspartate Amino Transferase 17 U/L (0-40); Blood Urea Nitrogen 23 mg/dL (8-23); Calcium 8.4 mg/dL (8.5-10.5); Carbon Dioxide 23 mmol/L (22-29); Chloride 104 mmol/L (98-107); Glomerular Filtration Rate 54.9 mL/min (90-130); Glucose 158 mg/dL (65-115); Osmolality Calculated 289 mOsm/kg (285-295); Sodium 136 mmol/L (136-145); Total Bilirubin 0.7 mg/dL (0.15-1.2); Total Protein 6.7 g/dL (6.6-8.7)
[2021-03-24] MEDS: metoprolol tartrate 50 mg Tablet 100 MG PO ×2 (05:52→17:28)
[2021-03-24] MEDS: fluticasone nasal spray 16gm Btl 2 SPRAY INTRANASAL (05:52)
[2021-03-24 06:43] LABS: Glucose Point of Care 159 mg/dL (70-110)
[2021-03-24] MEDS: budesonide 0.5 mg/2 mL Neb INHALATION ×2 (08:11→20:00)
[2021-03-24] MEDS: atorvastatin 40 mg Tablet 80 MG PO (08:45)
[2021-03-24] MEDS: benzonatate 100 mg Capsule PO ×3 (08:45→20:58)
[2021-03-24] MEDS: ferrous gluconate 324 mg Tablet PO ×2 (08:45→17:29)
[2021-03-24] MEDS: clopidogrel 75 mg Tablet PO (08:45)
[2021-03-24] MEDS: azithromycin 250 mg Tablet 500 MG PO (08:46)
--- NOTE | 2021-03-24 10:08 | ECG_ITS ---
[facility] Test Date: 2021-03-25 Pat Name: Torey Kaba Department: Room: 103 Gender: Male Line Supervisor: : 1950 Requested By: Cole Peraza Order Number: [id number] Lianna MD: Cholo Kelsey M.D. Interpretive Statements NAME OF STUDY: LEXISCAN SESTAMIBI STRESS TEST INDICATION: Chest Pain PROCEDURE: At the baseline, the EKG revealed normal sinus rhythm with a right bundle branch block pattern. No acute ST-T changes.. The baseline blood pressure was 139/66 mm Hg with a heart rate of 87 beats/min. Lexiscan was infused over a period of 20 seconds. A total of 0.4 milligrams of Lexiscan was infused. The stress phase was continued for a total of 5 minutes. Heart rate at the end of the stress phase was 93 with a blood pressure 157/65. The EKG at the peak infusion revealed some nonspecific ST changes in the anterolateral leads.. Sestamibi was injected 20 seconds after the Lexiscan infusion. Blood pressure at the end of the recovery phase was 170/56 with a heart rate of 92 per minute. CONCLUSION: 1. Nonspecific EKG changes with the LexiScan infusion 2. No LexiScan induced chest pain or cardiac arrhythmia 3. Normal blood pressure and heart rate response 4. Sestamibi/sestamibi perfusion scan pending; see separate report. Electronically Signed On 03-26-2021 10:46:27 CDT by Cholo Kelsey M.D. [email or web address]
--- NOTE | 2021-03-24 10:08 | PM.PN ---
Subjective Subjective: Interval history: No events overnight. Patient had endoscopy colonoscopy yesterday which was within normal limits. Patient was due for a stress test which could not be done as he had nuclear perfusion scan for PE done in last 48 hours. Patient is due for stress test tomorrow morning. Vitals/I&O/Wt Last Vital Signs Temp 98.1 F 03/24/21 03:47 Pulse 72 03/24/21 08:10 Resp 18 03/24/21 08:10 BP 137/54 03/24/21 03:47 Pulse Ox 95 03/24/21 08:10 03/23/21 03/24/21 03/24/21 22:59 06:59 14:59 Intake Total 100 / 160 Output Total 350 / 350 550 / 900 Balance -250 / -190 -550 / -740 Physical Exam Narrative: EXAM NARRATIVE: General: No acute distress, AO x3, jovial, on RA HEENT: PERRLA, pupils bilaterally equal and reactive Chest: Normal vesicular breath sounds, bilateral basilar rhonchi, occasional crackles all over the lung mueller diffused, equal good air entry bilaterally CVS: S1-S2 regular, no murmurs, no tachycardia, no gallops, no rubs Abdomen: Soft, nontender, no organomegaly, bowel sounds present Neuro: No focal deficits, no facial deformity, AO x3, power 5/5 in all limbs Data : 03/24/21 03:25 03/24/21 03:25 Micro: Microbiology 03/22/21 13:45 MRSA Culture - Final Nose 03/22/21 13:45 Gram Stain - Final Sputum - Expectorated Sputum Sputum Culture - Preliminary 03/22/21 13:11 Blood Culture - Preliminary Blood NEGATIVE TO DATE 03/22/21 13:05 Blood Culture - Preliminary Blood NEGATIVE TO DATE A&P Assessment and plan (1) Hypoxia: Status: Acute (2) CHF exacerbation: Status: Acute Qualifiers: Heart failure type: diastolic Qualified Code(s): I50.33 - Acute on chronic diastolic (congestive) heart failure (3) Restrictive lung disease: Status: Acute (4) Community acquired pneumonia: Status: Acute Qualifiers: Laterality: left Lung location: lower lobe of lung Qualified Code(s): J18.9 - Pneumonia, unspecified organism (5) NSTEMI (non-ST elevated myocardial infarction): Status: Acute (6) Normocytic anemia: Status: Acute (7) Acute kidney injury: Status: Acute (8) Pleural effusion: Status: Acute Additional A&P Information Acute hypoxia: Most likely a combination of diastolic congestive heart failure along with possible atypical pneumonia. Net 1300 cc negative since admission. Continue with oral Lasix 60 mg daily. Strict input output charting. Daily weights. Fluid restriction up to 1500 cc. Echocardiogram shows an EF of 50 to 55%, hypokinetic basal inferior wall segment, moderate LA size, mild to moderate TR, mild to moderate MR. For pneumonia: Concerning for infiltrates on CT chest though could be because of CHF as well. COVID-19 rapid antigen negative. Legionella, bacterial antigen negative. MRSA swab negative. No growth sputum culture. For now stop antibiotics and monitor for next 24 hours. Ventilation/perfusion scan low quality for PE. Oxygen supplementation keeping saturation over 90%. Non-ST elevation NM: Diffuse ST-T depressions along with elevated troponin on admission. Troponin have trended down. Continue with Plavix, statins. Start on aspirin as EGD/colonoscopy within normal limits. Continue with home dose of metoprolol. Appreciate cardiology recommendations. Lexiscan stress test tomorrow morning. N.p.o. after midnight. Acute blood loss anemia: Hemoglobin stable. Post 3 units blood transfusion. Appreciate EGD and colonoscopy results. Continue with Protonix 40 mg twice daily. We will consult surgery for possible EGD/colonoscopy. Continue with IV Protonix 40 twice daily. Continue with oral iron supplementation. Hypertension: Goal blood pressure less than 140/90 mmHg. For now continue with home dose of metoprolol. Start home dose amlodipine. Continue to hold off on lisinopril. WHIT: Baseline creatinine around 1. Creatinine stable to 1.3. Medical reconciliation done for nephrotoxic drugs. BMP daily. Full code NPO. DVT prophylaxis with SCDs. Patient's care plan discussed in detail with patient and family at bedside. All the questions were answered. Attestations Medical Necessity Statement*: Requires further hospitalization for management of unstable angina, CHF in setting of anemia Time Spent in Patient Care: Greater than 35 minutes (>than 50% of time spent in counselling and/or direct pt care on unit). Coding Level of Care Code Acute Senior Enterprise Architect for Georges Sanderson Diagnoses Hypoxia R09.02 CHF exacerbation I50.33 Heart failure type: diastolic Restrictive lung disease J98.4 Community acquired pneumonia J18.9 Laterality: left Lung location: lower lobe of lung NSTEMI (non-ST elevated myocardial infarction) I21.4 Normocytic anemia D64.9 Acute kidney injury N17.9 Pleural effusion J90
[2021-03-24] MEDS: pantoprazole 40 mg SDV IVP ×2 (11:34→18:59)
[2021-03-24 11:54] LABS: Glucose Point of Care 296 mg/dL (70-110)
[2021-03-24] MEDS: amlodipine 5 mg Tablet PO (14:33)
--- NOTE | 2021-03-24 16:59 | PM.PN ---
Subjective Subjective: Interval history: The patient is feeling better. Denies any chest pain or chest tightness. No unusual shortness of breath. No fever or chills. No cough. Medications: Reviewed: Yes Medication Review Details: Current Medications Albuterol/Ipratropium (Ipratropium-Albuterol 3 Ml Neb) 3 ml INHALATION Q6H PRN PRN Reason: SHORTNESS OF BREATH Albuterol/Ipratropium (Ipratropium-Albuterol 3 Ml Neb) 3 ml INHALATION Q6H.RESPIRATORY [facility] Last Admin: 03/24/21 15:36 Dose: 3 ml Documented by: Aminophylline (Aminophylline 25 Mg/Ml Sdv 10 Ml) 25 mg IVP Q2M PRN PRN Reason: see dose instructions Stop: 03/24/21 19:30 Amlodipine Besylate (Amlodipine 5 Mg Tablet) 5 mg PO DAILY@0700 [facility] Last Admin: 03/24/21 14:33 Dose: 5 mg Documented by: Aspirin (Aspirin 81 Mg Ec Tablet) 81 mg PO DAILY [facility] Atorvastatin Calcium (Atorvastatin 40 Mg Tablet) 80 mg PO DAILY [facility] Last Admin: 03/24/21 08:45 Dose: 80 mg Documented by: Benzonatate (Benzonatate 100 Mg Capsule) 100 mg PO TID [facility] Last Admin: 03/24/21 14:33 Dose: 100 mg Documented by: Budesonide (Budesonide 0.5 Mg/2 Ml Neb) 0.5 mg INHALATION BID.RESPIRATORY [facility] Last Admin: 03/24/21 08:11 Dose: 0.5 mg Documented by: Clopidogrel Bisulfate (Clopidogrel 75 Mg Tablet) 75 mg PO DAILY [facility] Last Admin: 03/24/21 08:45 Dose: 75 mg Documented by: Dextrose (Dextrose 50% Syringe 50 Ml) 25 ml IVP ONCE PRN; Protocol PRN Reason: hypoglycemia protocol Dextrose (Dextrose 50% Syringe 50 Ml) 50 ml IVP PRN PRN; Protocol PRN Reason: hypoglycemia protocol Ferrous Gluconate (Ferrous Gluconate 324 Mg Tablet) 324 mg PO BIDWM [facility] Last Admin: 03/24/21 08:45 Dose: 324 mg Documented by: Fluticasone Propionate (Fluticasone Nasal [place] 16gm Btl) 2 spray INTRANASAL DAILY@0700 [facility] Last Admin: 03/24/21 05:52 Dose: 2 spray Documented by: Furosemide (Furosemide 40 Mg Tablet) 60 mg PO DAILY@0800 [facility] Glucagon (Glucagon 1 Mg/Ml Inj 1 Ml) 1 mg IM ONCE PRN; Protocol PRN Reason: Adult Acute Hypoglycemia Prot. Guaifenesin/Dextromethorphan (Guaifenesin-Dextromethorphan Udc 10 Ml) 10 ml PO Q4H PRN PRN Reason: COUGH Last Admin: 03/24/21 02:37 Dose: 10 ml Documented by: Dextrose (D5w) 500 mls @ 100 mls/hr IV ONCE PRN; Protocol PRN Reason: Adult Acute Hypoglycemia Prot Insulin Aspart (Insulin Aspart 100 Unit/1 Ml) 0 unit SUBCUT WM&BEDTIME [facility]; Protocol Last Admin: 03/24/21 11:57 Dose: 10 unit Documented by: Metoprolol Tartrate (Metoprolol Tartrate 50 Mg Tablet) 100 mg PO BID@0700,1800 [facility] Last Admin: 03/24/21 05:52 Dose: 100 mg Documented by: Nitroglycerin (Nitroglycerin 0.4 Mg Sublingual Tablet) 0.4 mg SUBLINGUAL Q5M PRN PRN Reason: CHEST PAIN Stop: 03/24/21 19:30 Ondansetron HCl (Ondansetron 2 Mg/Ml Sdv 2 Ml) 4 mg IVP Q2M PRN PRN Reason: NAUSEA Pantoprazole Sodium (Pantoprazole 40 Mg Sdv) 40 mg IVP BID [facility] Last Admin: 03/24/21 11:34 Dose: 40 mg Documented by: Regadenoson (Regadenoson 0.4 Mg/5 Ml Syringe) 0.4 mg IVP ONCE PRN PRN Reason: Lexiscan Stress Test Vitals/I&O/Wt Last Vital Signs Temp 98.1 F 03/24/21 03:47 Pulse 82 03/24/21 15:42 Resp 18 03/24/21 15:42 BP 137/54 03/24/21 03:47 Pulse Ox 96 03/24/21 15:42 03/24/21 03/24/21 03/24/21 06:59 14:59 22:59 Intake Total 686 / 686 Output Total 550 / 900 600 / 600 Balance -550 / -740 86 / 86 Physical Exam Narrative: EXAM NARRATIVE: GENERAL: The patient is alert and oriented times three. Not in any acute distress. HEENT: Minimal pallor, no icterus or lymphadenopathy. The pupils are symmetrical. Oral cavity: There are no mucous membrane lesions. NECK: Trachea appears to be central. No masses noted. No JVD or thyromegaly appreciated. Carotid bruit on the right side. RESPIRATORY: Chest is symmetrical. No intercostals muscle retraction or any accessory muscle activation. There is no chest wall tenderness. Breath sounds are heard bilaterally. No rales or rhonchi heard. No evidence of any consolidation. BREASTS: Deferred. HEART: PMI could not be palpated. No palpable precordial events. S1 and S2 are normal. No S3 or S4 heard. No pericardial rub or any click heard. ABDOMEN: No vessel pulsations or distention. No tenderness. No organomegaly appreciated. No abdominal bruit. Bowel sounds are normally heard. : Deferred. RECTAL: Deferred. LYMPHATIC: No lymphadenopathy noted in the neck or groin. EXTREMITIES: No edema or cyanosis. No clubbing. Varicose veins and features of chronic venous stasis. The dorsalis pedis and posterior tibial tibial pulses are extremely weak on both sides MUSCULOSKELETAL: No acute joint deformities or swelling SKIN: Features of chronic venous stasis in both lower extremities. No rashes noted NEUROPSYCHIATRIC: The patient is alert and oriented x3. Appears to be in a good mood. The higher functions are grossly within normal limits. No tremors or rigidity noted. Data : 03/25/21 05:12 03/25/21 05:12 Micro: Microbiology 03/22/21 13:45 Gram Stain - Final Sputum - Expectorated Sputum Sputum Culture - Final 03/22/21 13:45 MRSA Culture - Final Nose 03/22/21 13:11 Blood Culture - Preliminary Blood NEGATIVE TO DATE 03/22/21 13:05 Blood Culture - Preliminary Blood NEGATIVE TO DATE A&P Assessment and plan (1) Elevated troponin: Patient has no significant delta. And non-ST relation myocardial infarction is a consideration. However in view of the possible pneumonia and severe anemia, a type II myocardial infarction also is a consideration. Currently his hemoglobin seems to be stable. Since he has no chest pain or any specific cardiac symptoms, I may go ahead and do a myocardial perfusion imaging, to further evaluate his coronary status/graft status and decide on further management. This was discussed with the patient in detail which is understood well and consented to proceed. Stress testing has not been done today because of the CT pulmonary angiogram yesterday. Patient is scheduled for the stress test tomorrow. May continue the current medications for the time being. Status: Acute (2) Acute on chronic diastolic (congestive) heart failure: Patient may be carefully treated with with IV diuretics Status: Acute (3) Atherosclerosis of coronary artery of [place] heart without angina pectoris: Patient is known to have 7 vessel coronary artery bypass surgery. We will try to get the records from [place]. We also will try to get the medical records from the [facility] specifically the recent cardiac catheterization report. In the meanwhile, he may continue on the current medications. We are still waiting for the records. Status: Acute Qualifiers: Coronary Disease-Associated Artery/Lesion type: [place] artery Qualified Code(s): I25.10 - Atherosclerotic heart disease of [place] coronary artery without angina pectoris (4) Normochromic normocytic anemia: Hemoglobin currently seems to be dropping. Source of bleeding is not clear at this time. Status: Acute (5) Acute kidney injury: The creatinine slightly elevated. Follow-up as per the nephrology Status: Acute (6) Carotid bruit: A carotid Doppler examination was reviewed. Patient has bilateral carotid artery disease. He has less than 50% stenosis on the right side and 50 to 69% stenosis on the left side. May continue on the current medications. Status: Acute Qualifiers: Laterality: right Qualified Code(s): R09.89 - Other specified symptoms and signs involving the circulatory and respiratory systems (7) Peripheral arterial occlusive disease: Patient appears to have a high-grade stenosis in the mid SFA on the right side and proximal iliac artery on the left side. He does not have any significant symptoms at this point. May consider intervention, if he starts having symptoms. Consider starting him on Pletal Status: Acute Additional A&P Information Patient's other problems are GI bleed Recent pancreatitis Pancreatic cyst at the uncinate process Hepatomegaly with steatosis Elevated CA 19-9 Pneumonia COPD Essential benign hypertension, currently normotensive. Type 2 diabetes. Dyslipidemia. The patient is scheduled for the myocardial perfusion imaging tomorrow. After reviewing the test results, further recommendations will be made. 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
[2021-03-24 17:03] LABS: Glucose Point of Care 179 mg/dL (70-110)
--- NOTE | 2021-03-24 19:15 | PC.NURSE ---
Bedside report received from Emma LAINEZ. Patient is sitting on the side of the bed playing a game on his phone. A & O x4. Patient has no C/O pain or needs at this time.
[2021-03-24 20:59] LABS: Glucose Point of Care 333 mg/dL (70-110)
[2021-03-25] VITALS (10 sets, daily range): BP systolic 142–157; BP diastolic 61–65; PULSE 72–97; RESP 17–22; TEMP 36.6–36.9; O2SAT 92–96
[2021-03-25] MEDS: ipratropium-albuterol 3 mL Neb INHALATION ×2 (03:13→15:41)
[2021-03-25 05:54] LABS: Basophils # 0.1 10^3/uL (0.0-0.1); Eosinophils # 0.7 10^3/uL (0.0-0.8); Eosinophils % 8.5 %; Hematocrit 32.7 % (42.0-52.0); Hemoglobin 9.9 g/dL (11.7-16.6); Lymphocytes # 1.2 10^3/uL (0.8-4.8); Lymphocytes % 14.8 %; Mean Corpuscular HGB Conc 30.3 g/dL (30.0-36.0); Mean Corpuscular Hemoglobin 26.7 pg (28.0-34.0); Mean Corpuscular Volume 88.1 fL (80-94); Mean Platelet Volume 10.6 fL (7.4-10.4); Monocytes # 0.7 10^3/uL (0.2-0.9); Monocytes % 8.6 %; Neutrophils # 5.35 10^3/uL (1.8-7.7); Neutrophils % 66.5 %; Nucleated Red Blood Cells % 0 %; Platelet Count 271 10^3/cmm (130-400); Red Blood Count 3.71 10^6/uL (4.1-5.3); Red Cell Distribution Width 15.6 % (12.1-15.1)
[2021-03-25 06:14] LABS: Alanine Aminotransferase 11 U/L (0-41); Albumin Level 3.5 g/dL (3.5-5.2); Alkaline Phosphatase 78 IU/L (40-130); Anion Gap 14.6 (5-19); Aspartate Amino Transferase 15 U/L (0-40); Blood Urea Nitrogen 17 mg/dL (8-23); Calcium 8.2 mg/dL (8.5-10.5); Carbon Dioxide 22 mmol/L (22-29); Chloride 105 mmol/L (98-107); Globulin 3.1 g/dL (1.3-4.6); Glomerular Filtration Rate 60.2 mL/min (90-130); Glucose 194 mg/dL (65-115); Osmolality Calculated 293 mOsm/kg (285-295); Potassium 3.6 mmol/L (3.5-5.1); Sodium 138 mmol/L (136-145); Total Bilirubin 0.5 mg/dL (0.15-1.2); Total Protein 6.6 g/dL (6.6-8.7)
[2021-03-25 06:51] LABS: Glucose Point of Care 209 mg/dL (70-110)
--- NOTE | 2021-03-25 07:00 | NMCV_ITS ---
NM eric perf SPECT r/s* [id number] Torey Kaba Age: 70 Gender: M : 1950 Exam Date: 03/25/2021 07:13 Ordering Phys: Cole Peraza MD Technologist: CHRISTOS Trotter Exam Location: [facility] Indications: DIFFICULTY BREATHING; HEART PALPITATIONS STRESS TEST Please see separate stress test report in [facility] for full findings IMAGE PROTOCOL Rest/Stress 1 Lexiscan Day Radiopharmaceutical Dose (mCi) Administration Site Administered by Rest: Tc-99m 10.9 IV CHRISTOS Wang Sestamibi Stress:Tc-99m 32.9 IV CHRISTOS Trotter Sestaminahomi Rest: 25-Mar-2021 60 Discovery 630 Stress: 25-Mar-2021 30 Discovery 630 0.4mg Lexiscan. Images obtained in supine and prone position. SPECT RESULTS Technical Quality: Excellent Raw Data Analysis: Normal Image Corrections: No attenuation or motion correction applied Summed Stress Score: 26 Summed Rest Score: 16 Summed Difference Score: 10 PERFUSION FINDINGS Moderate to large areas of severely decreased tracer uptake in the basal mid and apical inferior, basal and mid inferolateral, basal and mid anterolateral, mid and apical anterior, and apical lateral segments. Significant reversibility was noted in the anterolateral, anterior and apical inferior regions. FUNCTIONAL RESULTS (calculated via Gated SPECT) Stress Image LV EF (%): 42 Stress EDV (mL):202 TID: 0.8 Stress ESV (mL):117 FUNCTIONAL FINDINGS: Segmental wall motion analysis revealed diffuse hypokinesia of the inferior wall, septum and the LV apex. IMPRESSIONS 1. Myocardial perfusion imaging revealing moderate to large area of severely decreased tracer uptake in the inferior, inferolateral, anterolateral, anterior and apical regions, with a significant reversibility, suggesting myocardial scarring with ischemia in the distribution of all the 3 coronary arteries mostly the circumflex territory. 2. Diminished LV ejection fraction of 42%. 3. Wall motion normalities as mentioned above. 4. Moderately dilated LV cavity with an end-systolic volume of 117 mL No similar previous studies are available for comparison Dr Cholo Kelsey MD [facility] (Electronically Signed) Final Date: 25 March 2021 12:51 S
[2021-03-25] MEDS: regadenoson 0.4 Mg/5 ml Syringe IVP (08:11)
[2021-03-25] MEDS: benzonatate 100 mg Capsule PO (10:15)
[2021-03-25] MEDS: metoprolol tartrate 50 mg Tablet 100 MG PO ×2 (10:15→17:16)
[2021-03-25] MEDS: amlodipine 5 mg Tablet PO (10:16)
[2021-03-25] MEDS: pantoprazole 40 mg SDV IVP (10:17)
[2021-03-25] MEDS: fluticasone nasal spray 16gm Btl 2 SPRAY INTRANASAL (10:17)
[2021-03-25] MEDS: ferrous gluconate 324 mg Tablet PO ×2 (10:17→17:15)
[2021-03-25 11:58] LABS: Glucose Point of Care 277 mg/dL (70-110)
--- NOTE | 2021-03-25 13:45 | CT_ITS ---
WS: [id number] CTA ABDOMINAL AORTA WITH RUNOFF TECHNIQUE: Contrast enhanced CTA of the abdominal aorta with bilateral lower extremity runoff. Multip lanar reformatted images were obtained. MIP reformats were also reviewed. CLINICAL INFORMATION: Bilateral iliac artery disease COMPARISON: CT January 02, 2021 DLP: 2011.[address] scans at [facility] use at least one of these dose optimization techniques: automat ed exposure control; mA and/or kV adjustment per patient size (includes targeted exams where dose is matched to clinical indication); or iterative reconstruction. FINDINGS: Diffuse fatty infiltration of the liver. Hepatomegaly. Normal GE junction. Small bilateral pleural effusions. Patchy infiltrates and/or atelectasis in the left greater than right lower lobes. Subsegmental atelectasis right lung base. Cardiomegaly. Fatty atrophy of the pancreas. Previously luz marina cribed low-attenuation lesion in the head of the pancreas not seen today. Recommend correlation with history of interval treatment or ERCP. Gallbladder is contracted. Adrenal glands are normal. Normal renal parenchymal enhancement. No hydron ephrosis. No abdominal or pelvic lymphadenopathy. Prostate calcification. Enlarged prostate measuring 5.4 CM. Tortuous sigmoid colon. No evidence of high-grade small or large bowel obstruction. Fat-cont aining umbilical hernia. No herniated bowel. A few prominent jovita hepatis lymph nodes. Normal caliber abdominal aorta. Aortic calcification. Moderate stenosis at the celiac origin. Celiac remains patent. Severe high-grade stenosis with near occlusion of the SMA just distal to the origin w ith residual string-like lumen. Single right and 2 left renal arteries are patent. Mild stenosis of t he right renal artery ostia. Moderate stenosis of [place] origin. RIGHT: Densely calcified right common iliac artery. Right external and internal iliac artery are heav naresh calcified but patent. Densely calcified right common femoral artery with severe segmental high-gr brian common femoral artery stenosis with dense calcification. Short segment occlusion of the superfici al femoral artery at the origin with dense calcification. Heavily calcified deep femoral artery. Sang nstitution of the SFA in the upper thigh with high-grade stenosis in the mid to proximal thigh with n ear occlusion. Severe stenosis distally at the adductor hiatus. SFA appears occluded distally with re constitution of the popliteal artery. Moderate to severe segmental stenosis popliteal artery with den se calcification. Popliteal artery tapers at the trifurcation with poor runoff to the right lower ext remity. Small amount of flow in the peroneal and posterior tibial arteries. Densely calcified anterior tibial artery with only segmental flow LEFT: Dense calcified common iliac artery which is patent. External and internal iliac arteries are p atent. External iliac artery is patent to the common femoral artery. Common femoral artery is nearly occluded at the origin with a tiny residual lumen with dense calcification. Moderate to severe segmen tushar narrowing femoral artery. Short segment occlusion of the superficial femoral artery at the origin with dense calcification. Deep femoral artery is heavily calcified and patent. Moderate segmental na rrowing superficial femoral artery to the adductor hiatus. Superficial femoral artery is densely calc ified and occluded at the popliteal hiatus. Occlusion of the popliteal artery origin which reconstitu edgardo above the knee with moderate segmental stenosis. Moderate to severe stenosis posterior to the kne e. Popliteal artery remains patent to the trifurcation with dominant two-vessel runoff to the ankle. Anterior tibial artery is occluded. Small amount of flow in the peroneal and posterior tibial arterie s. CT/CT angio abd aorta runof 11730 IMPRESSION: 1. Normal caliber abdominal aorta. 2. Densely calcified common femoral arteries bilaterally with high-grade steno sis and near occlusion in a symmetric pattern. 3. Short segment occlusion of both superficial femoral arteries at the origins . The superficial femoral arteries are occluded distally with dense calcificati on. 4. Moderate to severe segmental stenosis involving the popliteal arteries with dominant posterior tibial and peroneal runoff to the ankle. 5. Moderate stenosis celiac artery origin. Severe stenosis of the SMA origin. 6. Small bilateral pleural effusions with patchy infiltrate/atelectasis in the lower lobes bilaterally.
[2021-03-25] MEDS: iodixanol 320 mg/mL 100mL Btl IV (14:36)
--- NOTE | 2021-03-25 15:16 | PM.PN ---
Subjective Subjective: Interval history: No complaints overnight. Patient seen multiple times during the day. Sitting comfortably in bed. He patient seen post cardiac stress today. No acute difficulty in breathing, chest pain, dizziness overnight. Vitals/I&O/Wt Last Vital Signs Temp 98 F 03/25/21 03:17 Pulse 94 03/25/21 08:20 Resp 22 H 03/25/21 03:17 BP 157/65 03/25/21 08:20 Pulse Ox 92 03/25/21 03:17 03/25/21 03/25/21 03/25/21 06:59 14:59 22:59 Intake Total 480 / 480 Output Total 400 / 1000 Balance -400 / -164 480 / 480 Physical Exam Narrative: EXAM NARRATIVE: General: No acute distress, AO x3, jovial, on RA HEENT: PERRLA, pupils bilaterally equal and reactive Chest: Normal vesicular breath sounds, bilateral basilar rhonchi, occasional crackles all over the lung mueller diffused, equal good air entry bilaterally CVS: S1-S2 regular, no murmurs, no tachycardia, no gallops, no rubs Abdomen: Soft, nontender, no organomegaly, bowel sounds present Neuro: No focal deficits, no facial deformity, AO x3, power 5/5 in all limbs Data : 03/25/21 05:12 03/25/21 05:12 Micro: Microbiology 03/22/21 13:45 Gram Stain - Final Sputum - Expectorated Sputum Sputum Culture - Final A&P Assessment and plan (1) Hypoxia: Status: Acute (2) CHF exacerbation: Status: Acute Qualifiers: Heart failure type: diastolic Qualified Code(s): I50.33 - Acute on chronic diastolic (congestive) heart failure (3) Restrictive lung disease: Status: Acute (4) Community acquired pneumonia: Status: Acute Qualifiers: Laterality: left Lung location: lower lobe of lung Qualified Code(s): J18.9 - Pneumonia, unspecified organism (5) NSTEMI (non-ST elevated myocardial infarction): Status: Acute (6) Normocytic anemia: Status: Acute (7) Acute kidney injury: Status: Acute (8) Pleural effusion: Status: Acute (9) Peripheral arterial occlusive disease: Status: Acute Additional A&P Information Acute hypoxia: Most likely a combination of diastolic congestive heart failure along with possible atypical pneumonia. Net 1300 cc negative since admission. Patient is euvolemic for now. Hold off on Lasix. Strict input output charting. Daily weights. Fluid restriction up to 1500 cc. Echocardiogram shows an EF of 50%, hypokinetic basal inferior wall segment, moderate LA size, mild to moderate TR, mild to moderate MR. For pneumonia: Concerning for infiltrates on CT chest though could be because of CHF as well. COVID-19 rapid antigen negative. Legionella, bacterial antigen negative. MRSA swab negative. No growth sputum culture. For now stop antibiotics and monitor for next 24 hours. Ventilation/perfusion scan low quality for PE. Oxygen supplementation keeping saturation over 90%. Non-ST elevation UT: Diffuse ST-T depressions along with elevated troponin on admission. Continue aspirin, Plavix, statin. Continue with home dose of metoprolol. Positive stress test. Plan for cardiac angiogram tomorrow morning. Acute blood loss anemia: Hemoglobin stable. Post 3 units blood transfusion. Appreciate EGD and colonoscopy results. No active source of bleeding. Continue with Protonix 40 mg twice daily. Continue with oral iron supplementation. Hypertension: Goal blood pressure less than 140/90 mmHg. Continue with amlodipine, metoprolol at current dose. Patient would need LASHONDA inhibitor as an outpatient but for now we will hold off given multiple contrast studies to avoid nephrotoxicity. WHIT: Baseline creatinine around 1. Creatinine stable to 1.3. Medical reconciliation done for nephrotoxic drugs. BMP daily. Peripheral arterial disease: Patient underwent CT aorta runoff as per Dr. Kelsey today. Full code Cardiac diet, n.p.o. after midnight DVT prophylaxis with SCDs. Patient's care plan discussed in detail with patient and family at bedside. All the questions were answered. Attestations Medical Necessity Statement*: Requires further hospitalization for management of typical chest pain, positive stress test in setting of CAD Time Spent in Patient Care: Greater than 35 minutes (>than 50% of time spent in counselling and/or direct pt care on unit). 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
[2021-03-25 16:23] LABS: Glucose Point of Care 158 mg/dL (70-110)
--- NOTE | 2021-03-25 19:50 | P.PN_ITS ---
Subjective Subjective: Interval history: Patient is feeling okay with no chest pain or chest tightness. No unusual shortness of breath. The vital signs remained stable. He had a CT of the abdominal aorta with runoff. He was found to have a high-grade stenosis in the common femoral arteries bilaterally. He also has multiple lesions in the superficial femoral artery. Medications: Reviewed: Yes Medication Review Details: Current Medications Albuterol/Ipratropium (Ipratropium-Albuterol 3 Ml Neb) 3 ml INHALATION Q6H PRN PRN Reason: SHORTNESS OF BREATH Albuterol/Ipratropium (Ipratropium-Albuterol 3 Ml Neb) 3 ml INHALATION Q6H.RESPIRATORY [facility] Last Admin: 03/25/21 15:41 Dose: 3 ml Documented by: Amlodipine Besylate (Amlodipine 5 Mg Tablet) 5 mg PO DAILY@0700 [facility] Last Admin: 03/25/21 10:16 Dose: 5 mg Documented by: Aspirin (Aspirin 81 Mg Ec Tablet) 81 mg PO DAILY [facility] Last Admin: 03/25/21 10:17 Dose: 81 mg Documented by: Atorvastatin Calcium (Atorvastatin 40 Mg Tablet) 80 mg PO DAILY [facility] Last Admin: 03/25/21 10:16 Dose: 80 mg Documented by: Benzonatate (Benzonatate 100 Mg Capsule) 100 mg PO TID PRN PRN Reason: COUGH (1st) Budesonide (Budesonide 0.5 Mg/2 Ml Neb) 0.5 mg INHALATION BID.RESPIRATORY [facility] Last Admin: 03/25/21 08:25 Dose: Not Given Documented by: Clopidogrel Bisulfate (Clopidogrel 75 Mg Tablet) 75 mg PO DAILY [facility] Last Admin: 03/25/21 10:16 Dose: 75 mg Documented by: Dextrose (Dextrose 50% Syringe 50 Ml) 25 ml IVP ONCE PRN; Protocol PRN Reason: hypoglycemia protocol Dextrose (Dextrose 50% Syringe 50 Ml) 50 ml IVP PRN PRN; Protocol PRN Reason: hypoglycemia protocol Ferrous Gluconate (Ferrous Gluconate 324 Mg Tablet) 324 mg PO BIDWM [facility] Last Admin: 03/25/21 17:15 Dose: 324 mg Documented by: Fluticasone Propionate (Fluticasone Nasal [place] 16gm Btl) 2 spray INTRANASAL DAILY@0700 [facility] Last Admin: 03/25/21 10:17 Dose: 2 spray Documented by: Furosemide (Furosemide 40 Mg Tablet) 60 mg PO DAILY@0800 [facility] Glucagon (Glucagon 1 Mg/Ml Inj 1 Ml) 1 mg IM ONCE PRN; Protocol PRN Reason: Adult Acute Hypoglycemia Prot. Guaifenesin/Dextromethorphan (Guaifenesin-Dextromethorphan Udc 10 Ml) 10 ml PO Q4H PRN PRN Reason: COUGH Last Admin: 03/24/21 02:37 Dose: 10 ml Documented by: Dextrose (D5w) 500 mls @ 100 mls/hr IV ONCE PRN; Protocol PRN Reason: Adult Acute Hypoglycemia Prot Sodium Chloride (Sodium Chloride 0.9%) 1,000 mls @ 50 mls/hr IV .Q20H ONE Stop: 03/26/21 09:38 Insulin Aspart (Insulin Aspart 100 Unit/1 Ml) 0 unit SUBCUT WM&BEDTIME [facility]; Protocol Last Admin: 03/25/21 17:16 Dose: 4 unit Documented by: Metoprolol Tartrate (Metoprolol Tartrate 50 Mg Tablet) 100 mg PO BID@0700,1800 [facility] Last Admin: 03/25/21 17:16 Dose: 100 mg Documented by: Ondansetron HCl (Ondansetron 2 Mg/Ml Sdv 2 Ml) 4 mg IVP Q2M PRN PRN Reason: NAUSEA Pantoprazole Sodium (Pantoprazole 40 Mg Sdv) 40 mg IVP BID [facility] Last Admin: 03/25/21 17:16 Dose: 40 mg Documented by: Vitals/I&O/Wt Last Vital Signs Temp 98.4 F 03/25/21 15:51 Pulse 75 03/25/21 15:51 Resp 20 H 03/25/21 15:51 BP 143/64 03/25/21 15:51 Pulse Ox 96 03/25/21 15:51 03/25/21 03/25/21 03/25/21 06:59 14:59 22:59 Intake Total 480 / 480 480 / 960 Output Total 400 / 1000 Balance -400 / -164 480 / 480 480 / 960 Physical Exam Narrative: EXAM NARRATIVE: GENERAL: The patient is alert and oriented times three. Not in any acute distress. HEENT: Minimal pallor, no icterus or lymphadenopathy. The pupils are symmetrical. Oral cavity: There are no mucous membrane lesions. NECK: Trachea appears to be central. No masses noted. No JVD or thyromegaly appreciated. Carotid bruit on the right side. RESPIRATORY: Chest is symmetrical. No intercostals muscle retraction or any accessory muscle activation. There is no chest wall tenderness. Breath sounds are heard bilaterally. No rales or rhonchi heard. No evidence of any consolidation. BREASTS: Deferred. HEART: PMI could not be palpated. No palpable precordial events. S1 and S2 are normal. No S3 or S4 heard. No pericardial rub or any click heard. ABDOMEN: No vessel pulsations or distention. No tenderness. No organomegaly appreciated. No abdominal bruit. Bowel sounds are normally heard. : Deferred. RECTAL: Deferred. LYMPHATIC: No lymphadenopathy noted in the neck or groin. EXTREMITIES: No edema or cyanosis. No clubbing. Varicose veins and features of chronic venous stasis. The dorsalis pedis and posterior tibial tibial pulses are extremely weak on both sides MUSCULOSKELETAL: No acute joint deformities or swelling SKIN: Features of chronic venous stasis in both lower extremities. No rashes noted NEUROPSYCHIATRIC: The patient is alert and oriented x3. Appears to be in a good mood. The higher functions are grossly within normal limits. No tremors or rigidity noted. Data : 03/26/21 03:15 03/26/21 03:15 A&P Assessment and plan (1) Elevated troponin: In view of the elevated troponin T, abnormal perfusion scan and multivess el coronary bypass surgery, in order to further evaluate his coronary status as well as the graft status, he requires a cardiac catheterization. The risk of bleeding, hematoma, vascular injury, myocardial infarction, CVA, renal failure and other concomitant complications were explained in detail. Patient understood this well and consented to proceed. Status: Acute (2) Acute on chronic diastolic (congestive) heart failure: Patient may be carefully treated with with IV diuretics Status: Acute (3) Atherosclerosis of coronary artery of [place] heart without angina pectoris: Patient is known to have 7 vessel coronary artery bypass surgery. We will try to get the records from [place]. We also will try to get the medical records from the [facility] specifically the recent cardiac catheterization report. In the meanwhile, he may continue on the current medications. We are still waiting for the records. Status: Acute Qualifiers: Coronary Disease-Associated Artery/Lesion type: [place] artery Qualified Code(s): I25.10 - Atherosclerotic heart disease of [place] coronary artery without angina pectoris (4) Normochromic normocytic anemia: The hemoglobin seems to be stable Status: Acute (5) Acute kidney injury: The creatinine slightly elevated. Follow-up as per the nephrology Status: Acute (6) Carotid bruit: A carotid Doppler examination was reviewed. Patient has bilateral carotid artery disease. He has less than 50% stenosis on the right side and 50 to 69% stenosis on the left side. May continue on the current medications. Status: Acute Qualifiers: Laterality: right Qualified Code(s): R09.89 - Other specified symptoms and signs involving the circulatory and respiratory systems (7) Peripheral arterial occlusive disease: Patient seems high-grade stenosis in the common femoral arteries bilaterally. He also has extensive disease in the iliac and the superficial femoral arteries. 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 Type 2 diabetes. Dyslipidemia. The results of the myocardial perfusion imaging and its implications were d iscussed with the patient in detail. Patient requires a cardiac catheterization, to further evaluate the coronary status as well as the graft status. However because of the high-grade lesions in the common femoral artery, this could be a technical challenge. Patient needs to have intervention of the peripheral arterial occlusion before proceeding with the arteriogram. The risk of bleeding, hematoma, vascular injury, myocardial infarction, CVA, renal failure and other concomitant complications were explained in detail. Patient understood this well and consented to proceed. I will be discussing the case with my colleague Dr. Hemphill regarding the peripheral intervention. Discussed the current status with the Dr. Khan Attestations Medical Necessity Statement*: Patient requires continued hospital stay for close monitoring and further management Coding Level of Care Code Acute Filter Changer for Chg Fwd Diagnoses Elevated troponin R77.8 Acute on chronic diastolic (congestive) heart failure I50.33 Atherosclerosis of coronary artery of [place] heart without angina pectoris I25.10 Coronary Disease-Associated Artery/Lesion type: [place] artery Normochromic normocytic anemia D64.9 Acute kidney injury N17.9 Carotid bruit R09.89 Laterality: right Peripheral arterial occlusive disease I77.9
[2021-03-25 20:15] LABS: Glucose Point of Care 169 mg/dL (70-110)
--- NOTE | 2021-03-25 22:28 | PC.NURSE ---
Bedside report received from ASPEN Andino. Patient is sitting on the side of the bed watching TV. A & O. Patient has no C/O of pain or voices any other needs at this time.
[2021-03-26] VITALS (66 sets, daily range): BP systolic 136–195; BP diastolic 60–75; PULSE 68–140; RESP 13–26; TEMP 36.5–36.6; O2SAT 65–96
[2021-03-26] MEDS: ipratropium-albuterol 3 mL Neb INHALATION ×4 (03:53→21:05)
[2021-03-26 04:04] LABS: Basophils # 0.1 10^3/uL (0.0-0.1); Basophils % 1.1 %; Eosinophils # 0.8 10^3/uL (0.0-0.8); Eosinophils % 9.4 %; Hematocrit 32.7 % (42.0-52.0); Hemoglobin 10.1 g/dL (11.7-16.6); Lymphocytes # 1.6 10^3/uL (0.8-4.8); Lymphocytes % 17.7 %; Mean Corpuscular HGB Conc 30.9 g/dL (30.0-36.0); Mean Corpuscular Hemoglobin 27.1 pg (28.0-34.0); Mean Corpuscular Volume 87.7 fL (80-94); Mean Platelet Volume 10.6 fL (7.4-10.4); Monocytes # 0.6 10^3/uL (0.2-0.9); Monocytes % 7.2 %; Neutrophils # 5.63 10^3/uL (1.8-7.7); Neutrophils % 64.1 %; Nucleated Red Blood Cells % 0 %; Platelet Count 260 10^3/cmm (130-400); Red Blood Count 3.73 10^6/uL (4.1-5.3); Red Cell Distribution Width 15.7 % (12.1-15.1); White Blood Count 8.8 10^3/uL (4.0-10.0)
[2021-03-26 04:19] LABS: Alanine Aminotransferase 12 U/L (0-41); Albumin Level 3.6 g/dL (3.5-5.2); Alkaline Phosphatase 80 IU/L (40-130); Anion Gap 13.7 (5-19); Aspartate Amino Transferase 15 U/L (0-40); Blood Urea Nitrogen 15 mg/dL (8-23); Calcium 8.7 mg/dL (8.5-10.5); Carbon Dioxide 22 mmol/L (22-29); Chloride 104 mmol/L (98-107); Glomerular Filtration Rate 66.6 mL/min (90-130); Glucose 158 mg/dL (65-115); Osmolality Calculated 286 mOsm/kg (285-295); Potassium 3.7 mmol/L (3.5-5.1); Sodium 136 mmol/L (136-145); Total Bilirubin 0.6 mg/dL (0.15-1.2); Total Protein 6.6 g/dL (6.6-8.7)
[2021-03-26] MEDS: metoprolol tartrate 50 mg Tablet 100 MG PO ×2 (06:21→19:24)
[2021-03-26] MEDS: amlodipine 5 mg Tablet PO (06:21)
[2021-03-26] MEDS: fluticasone nasal spray 16gm Btl 2 SPRAY INTRANASAL (06:22)
[2021-03-26 06:31] LABS: Glucose Point of Care 168 mg/dL (70-110)
--- NOTE | 2021-03-26 07:00 | XACV_ITS ---
Exam Room: [facility] Ht: 180 cm Wt: 97 kg BSA: 2.22 m2 Gender: Male : 1950 Any Known Allergies: Other Exam Priority: Routine Procedure(s): Procedure Description: Diagnostic procedure Procedure Description: Venous Graft Catheterization Procedure Description: CONROY Graft Catheterization Procedure Description: Peripheral Cath Diagnostic Procedure Procedure Description: Abdominal aortic angiography Procedure Description: Coronary Angiography Diagnostic Cath Status: Urgent Diagnostic Findings * Left Main has no disease. * Proximal Left Anterior Descending: total occlusion, FRANK: 0 flow. * Left Internal Mammary Artery to Mid Left Anterior Descending graft: patent. * Distal Right Coronary Artery: severe 90% stenosis, FRANK: 3 flow. * Proximal Circumflex: mild 40% stenosis, FRANK: 3 flow. * Ascending Aorta to 1st Diagonal graft: patent. * Ascending Aorta to Right Posterior AV graft: patent. * Ascending Aorta to First Obtuse Marginal Branch Segment graft: total occlusion, FRANK: 0 flow. * Four grafts visualized. * Coronary angiography shows right dominance. Conclusions Peripheral angiogram: Due to severely depressed pulse bilaterally and lifestyle limiting claudication peripheral angiogram was also performed.Aortic angiogram: No aneurysm noted.Left and right common, external, internal iliac arteries: Normal .Right common femoral severe disease, with severe calcified lesionRight SFA has distal severe short stenosis, right popliteal normalLeft common femoral, left profunda and SFA no significant stenosis, left popliteal normal left below the knee three-vessel runoff noted. Right below the knee not well visualized due to less contrast. There is total occlusion coronary artery disease with three vessel disease. Four coronary grafts visualized: three grafts patent, and one graft occluded. Patient has prior CABG. Recommendations Continue current medical management and risk factor modification. Continue medical management, right common femoral and right SFA intervention for lifestyle limiting claudication as an outpatient.. Pressures Phase:Rest AO : 182 / 63 ( 113 ) @ 12:19:00 PM Hemodynamic Data Phase:Rest AO : 182.0 / 63.0 ( 113.0 ) @ 12:19:00 PM Clinical Evaluation EBL: 5mL-10mL Procedural Details Procedure Consent Obtained. Pre-Procedure Time Out. Identified patient by full name and date of as verbalized by the patient/guarantor. Does the consent match the physician's order: Yes. Accurate & Complete Informed Consent: Yes. Inpatient/Outpatient History & Physical on Chart: Yes. If H&P is completed, is and addenduem needed: No; If yes, is the addendum complete: N/A. Visualize and Verify Site with Patient/Guarantor: N/A. Relevant Radiology Images available: N/A. Pre-op teaching completed and patient verbalized understanding. The risks, benefits, and alternatives of sedation and/or procedure were discussed by physician. The patient agrees to continue. Procedure started. [facility] Clinical Fraility Score: 4: Vulnerable. Senior Technical Architect Indications: Worsening Angina. Chest Pain Symptom Assessment: Typical Angina Symptoms. Cardiovascular Instability: No. Correct patient, site and procedure confirmed by cath team. PERRLA. Strong, equal hand pediatric care coordinator bilaterally. Lungs clear x 5 lobes. IV Site on Arrival: 20 gauge in the left anticubital. IV Fluids: 0.9% NaCl at KVO. 0 mL infused prior to clinical lab assistant. Pre Procedural Pulses: bilateral dorsalis pedis was Doppled. Pre Procedural Pulses: bilateral posterior tibial was Doppled. Oxygen started at 2liters/min via nasal canula. left radial was prepped with chloroprep then draped in the usual sterile fashion. Baseline sample Acquired. HR: 84 BPM. Equipment: 6F - Radial. Cardiac Cath Pack. ACIST Manifold Kit Model BT 2000. Heparinized Saline (2 units/mL), 1000 mL bag. Physician arrived. Physician scrubbed in. Immediate Pre-Procedure Time Out. Correct Patient: Yes; Correct Procedure: Yes; Correct Site: Yes; Correct Patient Position: Yes; Correct Supplies: Yes; Dried Flammable Prep: Yes; Blood Products Available: N/A;. Lidocaine 1% infiltrated to the right groin. Arterial access obtained with micropuncture set. Hand injection through microdilator. Right leg runoff through microdilator. Hand injection through sheath right leg runoff. Abdominal aortogram performed in AP @ 10 mL/sec for a total of 30 mL. Catheter removed over the standard wire. A 5 ugandan JL4 catheter in over wire. Blood pressure cuff located on patients lower leg. Multiple views taken of left coronary artery. A 5 ugandan JR4 catheter in over wire. Multiple views taken of right coronary artery. SVG's to RCA visualized and patent. SVG's to Diaganol visualized and patent. SVG to unknown location occluded. Catheter redirected to the CONROY. CONROY to LAD visualized. Side port of sheath attached to Normal Saline flush at KVO to maintain patency. Left leg runoff 10 ml for total of 30 ml. Catheter removed over the standard wire. Hand injection performed. Dilator inserted in sheath. Sheath exchanged for another 5 fr sheath. Physician scrubbed out. A Suture was successful obtaining hemostatsis at the Right Femoral artery insertion site. Sheath(s) sutured into position with 2-0 silk and sterile 4x4's and Op-site applied over the site. No oozing or signs and symptoms of hematoma noted. Arterial sheath flushed and connected to tranducer and pressure bag with heparinized saline. Post Procedure: Pulses reassessed and unchanged. PERRLA. Strong, equal hand pediatric care coordinator bilaterally. No VTE prophylaxis required. Medication's Wasted: Heparin = 4000 units. Medication's Wasted: Other = versed 1 mg. Medication's Wasted: Other = fentanyl 25 mcg. Total IV fluids: 75 mL. Contrast type used: Omnipaque 300 mgI/mL, 500 mL bottle. Complications: none. Estimated blood loss: 5mL-10mL. Post-op diagnosis: severe Multi vessel CAD. Procedure completed. Patient transferred by bed to 1st floor. Vital chart was stopped. Access Site Site: Right Femoral artery Sheath Size: 5 Fr Hemostasis Method: Suture Hemostasis Success: Successful Procedure Medications Start: 12:58 PM Stop: 12:58 PM Medication: Versed Amount: 1 mg Route: I.V. Start: 12:58 PM Stop: 12:58 PM Medication: Fentanyl Amount: 25 mcg Route: I.V. Start: 1:08 PM Stop: 1:08 PM Medication: Versed Amount: 1 mg Route: I.V. Start: 1:12 PM Stop: 1:12 PM Medication: Fentanyl Amount: 25 mcg Route: I.V. Start: 1:20 PM Stop: 1:20 PM Medication: Versed Amount: 1 mg Route: I.V. Start: 1:22 PM Stop: 1:22 PM Medication: Heparin Amount: 5000 units Route: I.V. Start: 1:41 PM Stop: 1:41 PM Medication: Fentanyl Amount: 25 mcg Route: I.V. I, the attending physician, have reviewed and verified all procedure medications. Yes, all medications given per verbal order History/Risk Factors Hypertension: Yes Dyslipidemia: Yes Peripheral Arterial Disease (PAD): No Myocardial Infarction (UT): Yes Obesity: Yes Renal Disease: No Prior Interventions PCI: Yes CABG: Yes Valve Surgery: No Report Signatures Finalized by Bon Hemphill MD on 04/11/2021 04:22 PM
[2021-03-26] MEDS: budesonide 0.5 mg/2 mL Neb INHALATION ×2 (08:07→21:05)
--- NOTE | 2021-03-26 09:00 | P.PN_ITS ---
Subjective Subjective: Interval history: No recurrence overnight. Patient has had a restful night. Denies any nausea vomiting, headache. Denies any chest pain. Lying comfortably in bed on examination with at bedside waiting for cardiac catheterization to be done today. Vitals/I&O/Wt Last Vital Signs Temp 97.8 F 03/26/21 07:24 Pulse 72 03/26/21 08:15 Resp 20 H 03/26/21 08:15 BP 136/62 03/26/21 07:24 Pulse Ox 96 03/26/21 08:15 03/25/21 03/26/21 03/26/21 22:59 06:59 14:59 Intake Total 630 / 1110 Output Total 1000 / 1000 200 / 200 Balance 630 / 1110 -1000 / 110 -200 / -200 Physical Exam Narrative: EXAM NARRATIVE: General: No acute distress, AO x3, jovial, on RA HEENT: PERRLA, pupils bilaterally equal and reactive Chest: Normal vesicular breath sounds, bilateral basilar rhonchi, occasional crackles all over the lung mueller diffused, equal good air entry bilaterally CVS: S1-S2 regular, no murmurs, no tachycardia, no gallops, no rubs Abdomen: Soft, nontender, no organomegaly, bowel sounds present Neuro: No focal deficits, no facial deformity, AO x3, power 5/5 in all limbs Data : 03/26/21 03:15 03/26/21 03:15 Other Labs: Laboratory Results WBC 8.8 10^3/uL (4.0-10.0) 03/26/21 03:15 RBC 3.73 10^6/uL (4.1-5.3) L 03/26/21 03:15 Hgb 10.1 g/dL (11.7-16.6) L 03/26/21 03:15 Hct 32.7 % (42.0-52.0) L 03/26/21 03:15 MCV 87.7 fL (80-94) 03/26/21 03:15 MCH 27.1 pg (28.0-34.0) L 03/26/21 03:15 MCHC 30.9 g/dL (30.0-36.0) 03/26/21 03:15 RDW 15.7 % (12.1-15.1) H 03/26/21 03:15 Plt Count 260 10^3/cmm (130-400) 03/26/21 03:15 MPV 10.6 fL (7.4-10.4) H 03/26/21 03:15 Neut % (Auto) 64.1 % 03/26/21 03:15 Lymph % (Auto) 17.7 % 03/26/21 03:15 [place] % (Auto) 7.2 % 03/26/21 03:15 Eos % (Auto) 9.4 % 03/26/21 03:15 Baso % (Auto) 1.1 % 03/26/21 03:15 Neut # (Auto) 5.63 10^3/uL (1.8-7.7) 03/26/21 03:15 Lymph # (Auto) 1.6 10^3/uL (0.8-4.8) 03/26/21 03:15 [place] # (Auto) 0.6 10^3/uL (0.2-0.9) 03/26/21 03:15 Eos # (Auto) 0.8 10^3/uL (0.0-0.8) 03/26/21 03:15 Baso # (Auto) 0.1 10^3/uL (0.0-0.1) 03/26/21 03:15 Nucleated RBC % (auto) 0 % 03/26/21 03:15 Nucleated RBCs # 0.0 /100WBC 03/26/21 03:15 D-Dimer 1.11 ug/mIFEU (0-0.59) H 03/22/21 13:11 Sodium 136 mmol/L (136-145) 03/26/21 03:15 Potassium 3.7 mmol/L (3.5-5.1) 03/26/21 03:15 Chloride 104 mmol/L (98-107) 03/26/21 03:15 Carbon Dioxide 22 mmol/L (22-29) 03/26/21 03:15 Anion Gap 13.7 (5-19) 03/26/21 03:15 BUN 15 mg/dL (8-23) 03/26/21 03:15 Creatinine 1.1 mg/dL (0.7-1.2) 03/26/21 03:15 GFR Calculation 66.6 mL/min (90-130) L 03/26/21 03:15 Glucose 158 mg/dL (65-115) H 03/26/21 03:15 POC Glucose 168 mg/dL (70-110) H 03/26/21 06:28 Estimat Average Glucose 111 03/23/21 04:42 Hemoglobin A1c 5.5 % (4.0-6.0) 03/23/21 04:42 Calculated Osmolality 286 mOsm/kg (285-295) 03/26/21 03:15 Calcium 8.7 mg/dL (8.5-10.5) 03/26/21 03:15 Magnesium 2.0 mg/dL (1.7-2.3) 03/22/21 02:55 Iron 23 ug/dL (59-158) L 03/22/21 02:55 TIBC 330 mcg/dl 03/22/21 02:55 % Saturation 6.9 % (20-50) L 03/22/21 02:55 Unsat Iron Binding 307 ug/dL (112-347) 03/22/21 02:55 Total Bilirubin 0.6 mg/dL (0.15-1.2) 03/26/21 03:15 AST 15 U/L (0-40) 03/26/21 03:15 ALT 12 U/L (0-41) 03/26/21 03:15 Alkaline Phosphatase 80 IU/L (40-130) 03/26/21 03:15 Troponin T Baseline 123 ng/L (0-15) H* 03/21/21 16:05 Troponin T 120 Minute 122.1 ng/L (0-15) H 03/21/21 18:32 Delta Troponin T -0.9 ABS# (0-10) L 03/21/21 18:32 Troponin T Hi Sens 6Hr 97.01 ng/L (0-15) H 03/21/21 22:10 Troponin T Hi Sens 6Hr Delta -25.99 ng/L (0-12) L 03/21/21 22:10 NT-Pro-B Natriuret Pep 2155 pg/mL (0-125) H 03/21/21 16:05 Total Protein 6.6 g/dL (6.6-8.7) 03/26/21 03:15 Albumin 3.6 g/dL (3.5-5.2) 03/26/21 03:15 Globulin 3.0 g/dL (1.3-4.6) 03/26/21 03:15 Triglycerides 79 mg/dL (0-150) 03/23/21 04:42 Cholesterol 102 mg/dL (0-200) 03/23/21 04:42 LDL Cholesterol, Calc 58 mg/dL (50-129) 03/23/21 04:42 Total VLDL Cholesterol 16 mg/dL (0-30) 03/23/21 04:42 HDL Cholesterol 28 mg/dL (60-100) L 03/23/21 04:42 Cholesterol/HDL Ratio 3.64 mg/dL (1.0-5.00) 03/23/21 04:42 Vitamin B12 542 pg/mL (232-1245) 03/22/21 02:55 Folate 8.7 ng/mL (4.5-32.2) 03/22/21 02:55 Procalcitonin 0.10 ng/mL (0-0.5) 03/22/21 02:55 TSH 1.79 uIU/mL (0.27-4.20) 03/22/21 02:55 Urine Color Straw (Yellow) 03/22/21 13:45 Urine Appearance Clear (CLEAR) 03/22/21 13:45 Urine pH 7 (5-7) 03/22/21 13:45 Ur Specific [place] 1.005 (1.005-1.030) 03/22/21 13:45 Urine Protein Neg (Negative) 03/22/21 13:45 Urine Glucose (UA) Norm (Normal) 03/22/21 13:45 Urine Ketones Negative (Negative) 03/22/21 13:45 Urine Blood Neg (Negative) 03/22/21 13:45 Urine Nitrate Negative (Negative) 03/22/21 13:45 Urine Bilirubin Neg (Negative) 03/22/21 13:45 Urine Urobilinogen Norm mg/dL (Negative) 03/22/21 13:45 Ur Leukocyte Esterase Negative (Negative) 03/22/21 13:45 Urine RBC None /hpf (0-2) 03/22/21 13:45 Urine WBC Rare /hpf (0-5) 03/22/21 13:45 Ur Squamous Epith Cells None /hpf (0-5) 03/22/21 13:45 Amorphous Sediment Not Reportable 03/22/21 13:45 Urine Bacteria Trace /hpf (NONE) 03/22/21 13:45 SARS-CoV-2 Ag (Rapid) Negative (Negative) 03/21/21 17:30 Blood Type O Positive 03/21/21 18:32 Rho(D) Type Positive / 4+ 03/21/21 18:32 Antibody Screen Negative 03/21/21 18:32 Crossmatch See Detail 03/21/21 18:32 Impressions Chest X-Ray 03/21/21 16:40 IMPRESSION: Streaky opacities at the left lung base are consistent with pneumonia. Chest CT 03/21/21 19:51 IMPRESSION: 1. Multifocal bilateral pulmonary ground-glass opacities and infiltrates are consistent with atypical pneumonia. 2. Small left pleural effusion with peripheral enhancement and minimal internal complexity raises concern for possible empyema. 3. Moderate right pleural effusion. 4. Multivessel atherosclerotic disease which involves the coronary arteries. 5. There are centrilobular emphysematous changes in the bilateral lungs. Radiation Dose CTDIVOL = (mGy): DLP = 1021.88 (mGy-cm) Pulmonary Perfusion Imaging 03/23/21 14:53 IMPRESSION: 1. Low probability for pulmonary embolus. Aorta w/Runoff CTA 03/25/21 13:45 IMPRESSION: 1. Normal caliber abdominal aorta. 2. Densely calcified common femoral arteries bilaterally with high-grade stenosis and near occlusion in a symmetric pattern. 3. Short segment occlusion of both superficial femoral arteries at the origins. The superficial femoral arteries are occluded distally with dense calcification. 4. Moderate to severe segmental stenosis involving the popliteal arteries with dominant posterior tibial and peroneal runoff to the ankle. 5. Moderate stenosis celiac artery origin. Severe stenosis of the SMA origin. 6. Small bilateral pleural effusions with patchy infiltrate/atelectasis in the lower lobes bilaterally. A&P Assessment and plan (1) Hypoxia: Status: Acute (2) CHF exacerbation: Status: Acute Qualifiers: Heart failure type: diastolic Qualified Code(s): I50.33 - Acute on chronic diastolic (congestive) heart failure (3) Restrictive lung disease: Status: Acute (4) Community acquired pneumonia: Status: Acute Qualifiers: Laterality: left Lung location: lower lobe of lung Qualified Code(s): J18.9 - Pneumonia, unspecified organism (5) NSTEMI (non-ST elevated myocardial infarction): Status: Acute (6) Peripheral arterial occlusive disease: Status: Acute (7) Normocytic anemia: Status: Acute (8) Acute kidney injury: Status: Acute (9) Pleural effusion: Status: Acute Additional A&P Information Acute hypoxia: Most likely a combination of diastolic congestive heart failure along with possible atypical pneumonia. Net 1500 cc negative since admission. Patient is euvolemic for now. Hold off on Lasix. Strict input output charting. Daily weights. Fluid restriction up to 1500 cc. Echocardiogram shows an EF of 50%, hypokinetic basal inferior wall segment, moderate LA size, mild to moderate TR, mild to moderate MR. For pneumonia: Concerning for infiltrates on CT chest though could be because of CHF as well. COVID-19 rapid antigen negative. Legionella, bacterial antigen negative. MRSA swab negative. No growth sputum culture. Antibiotics stopped and patient has remained hemodynamically stable and afebrile for last 48 hours. Ventilation/perfusion scan low quality for PE. Oxygen supplementation keeping saturation over 90%. Non-ST elevation [place]: Diffuse ST-T depressions along with elevated troponin on admission. Continue aspirin, Plavix, statin. Continue with home dose of metoprolol. Positive stress test. Plan for cardiac angiogram today afternoon. Peripheral artery disease: CTA aortic runoff results appreciated consistent with severe peripheral arterial occlusive disease. Continue with aspirin Plavix. Plan for cardiac/possible repair of peripheral angiogram today. Acute blood loss anemia: Hemoglobin stable. Post 3 units blood transfusion. Appreciate EGD and colonoscopy results. No active source of bleeding. Continue with Protonix 40 mg twice daily. Continue with oral iron supplementation. Hypertension: Goal blood pressure less than 140/90 mmHg. Continue with amlodipine, metoprolol at current dose. Patient would need LASHONDA inhibitor as an outpatient but for now we will hold off given multiple contrast studies to avoid nephrotoxicity. WHIT: Baseline creatinine around 1. Creatinine stable to 1.3. Medical reconciliation done for nephrotoxic drugs. BMP daily. Full code Cardiac diet, n.p.o. after midnight DVT prophylaxis with SCDs. Patient's care plan discussed in detail with patient and family at bedside. All the questions were answered. Attestations Medical Necessity Statement*: Patient requires further hospitalization for management of non-ST elevation [place], severe peripheral artery disease in setting of post CABG, CHF, acute blood loss anemia which has resolved now. Time Spent in Patient Care: Greater than 35 minutes (>than 50% of time spent in counselling and/or direct pt care on unit) . 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
[2021-03-26 12:00] LABS: Glucose Point of Care 191 mg/dL (70-110)
[2021-03-26] MEDS: sodium chloride 0.9% 1,000 ML 50 ML IV (12:04)
[2021-03-26] MEDS: diphenhydrAMINE 50 mg Capsule PO (12:28)
--- NOTE | 2021-03-26 12:58 | W.PM.OPSUD ---
Surgery/Procedure H&P Update DATE OF PROCEDURE: March 26, 2021 DATE H&P PERFORMED: 03/22/20 H&P UPDATE INFORMATION: I have reviewed H&P completed within last 30 days and I have examined patient prior to procedure PREOP DIAGNOSIS: nstemi PLANNED PROCEDURE: Operation Date: 03/23/21 13:00 Proposed Procedures p EGD(Not Applicable) - Jerome Obrien MD s Colonoscopy(Not Applicable) - Jerome Obrien MD Operation Date: 03/26/21 07:00 Proposed Procedures p left Cardiac Catheterization 50983 r07.9(Left) - Cholo Kelsey MD PATIENT REASSESSED PRIOR TO SEDATION, WITH NO CHANGE NOTED: Yes PHYSICAL EXAM: alert, oriented x 3 and clear to auscultation bilaterally AIRWAY EVAL/ANESTHESIA PLAN: ASA II, Risks, benefits & alternatives of sedation and/or procedure discussed and Patient agrees to continue as planned
[2021-03-26 14:54] LABS: Partial Thromboplastin Time 104.7 SECONDS (23.9-36.7)
[2021-03-26] MEDS: aspirin 81 mg EC Tablet PO (15:03)
[2021-03-26] MEDS: clopidogrel 75 mg Tablet PO (15:04)
[2021-03-26] MEDS: atorvastatin 40 mg Tablet 80 MG PO (15:04)
[2021-03-26 17:04] LABS: Partial Thromboplastin Time 31.9 SECONDS (23.9-36.7)
[2021-03-26] MEDS: ferrous gluconate 324 mg Tablet PO (19:24)
[2021-03-26] MEDS: pantoprazole 40 mg SDV IVP (19:27)
--- NOTE | 2021-03-26 19:55 | PC.NURSE ---
1730 this nurse went in to pull the sheath after speaking the with Dr hatch and reporting PTT results okayed to pull at 1730 attempting to pull sheath and met resistance Dr hatch called to bedside sheath removed by dr hatch this nurse taken over pressure hold for the 20 min patient tolerated well no bleeding or hematoma formation
--- NOTE | 2021-03-26 20:24 | PC.NURSE ---
Bedside report received from Tori LOUISE. Patient is resting in bed with his at this side. A & O. patient has no C/O of pain or other needs at this time.
[2021-03-26 20:33] LABS: Glucose Point of Care 211 mg/dL (70-110)
--- NOTE | 2021-03-26 20:50 | PM.PN ---
Subjective Subjective: Interval history: Patient underwent left heart catheter right common femoral approach which showed patent [place] to LAD, SVG to RCA and SVG to diagonal-2. SVG to diagonal 1 was occluded Medications: Reviewed: Yes Medication Review Details: Current Medications Albuterol/Ipratropium (Ipratropium-Albuterol 3 Ml Neb) 3 ml INHALATION Q6H PRN PRN Reason: SHORTNESS OF BREATH Albuterol/Ipratropium (Ipratropium-Albuterol 3 Ml Neb) 3 ml INHALATION Q6H.RESPIRATORY [facility] Last Admin: 03/25/21 15:41 Dose: 3 ml Documented by: Amlodipine Besylate (Amlodipine 5 Mg Tablet) 5 mg PO DAILY@0700 [facility] Last Admin: 03/25/21 10:16 Dose: 5 mg Documented by: Aspirin (Aspirin 81 Mg Ec Tablet) 81 mg PO DAILY [facility] Last Admin: 03/25/21 10:17 Dose: 81 mg Documented by: Atorvastatin Calcium (Atorvastatin 40 Mg Tablet) 80 mg PO DAILY [facility] Last Admin: 03/25/21 10:16 Dose: 80 mg Documented by: Benzonatate (Benzonatate 100 Mg Capsule) 100 mg PO TID PRN PRN Reason: COUGH (1st) Budesonide (Budesonide 0.5 Mg/2 Ml Neb) 0.5 mg INHALATION BID.RESPIRATORY [facility] Last Admin: 03/25/21 08:25 Dose: Not Given Documented by: Clopidogrel Bisulfate (Clopidogrel 75 Mg Tablet) 75 mg PO DAILY [facility] Last Admin: 03/25/21 10:16 Dose: 75 mg Documented by: Dextrose (Dextrose 50% Syringe 50 Ml) 25 ml IVP ONCE PRN; Protocol PRN Reason: hypoglycemia protocol Dextrose (Dextrose 50% Syringe 50 Ml) 50 ml IVP PRN PRN; Protocol PRN Reason: hypoglycemia protocol Ferrous Gluconate (Ferrous Gluconate 324 Mg Tablet) 324 mg PO BIDWM [facility] Last Admin: 03/25/21 17:15 Dose: 324 mg Documented by: Fluticasone Propionate (Fluticasone Nasal [place] 16gm Btl) 2 spray INTRANASAL DAILY@0700 [facility] Last Admin: 03/25/21 10:17 Dose: 2 spray Documented by: Furosemide (Furosemide 40 Mg Tablet) 60 mg PO DAILY@0800 [facility] Glucagon (Glucagon 1 Mg/Ml Inj 1 Ml) 1 mg IM ONCE PRN; Protocol PRN Reason: Adult Acute Hypoglycemia Prot. Guaifenesin/Dextromethorphan (Guaifenesin-Dextromethorphan Udc 10 Ml) 10 ml PO Q4H PRN PRN Reason: COUGH Last Admin: 03/24/21 02:37 Dose: 10 ml Documented by: Dextrose (D5w) 500 mls @ 100 mls/hr IV ONCE PRN; Protocol PRN Reason: Adult Acute Hypoglycemia Prot Sodium Chloride (Sodium Chloride 0.9%) 1,000 mls @ 50 mls/hr IV .Q20H ONE Stop: 03/26/21 09:38 Insulin Aspart (Insulin Aspart 100 Unit/1 Ml) 0 unit SUBCUT WM&BEDTIME NIDHI; Protocol Last Admin: 03/25/21 17:16 Dose: 4 unit Documented by: Metoprolol Tartrate (Metoprolol Tartrate 50 Mg Tablet) 100 mg PO BID@0700,1800 NIDHI Last Admin: 03/25/21 17:16 Dose: 100 mg Documented by: Ondansetron HCl (Ondansetron 2 Mg/Ml Sdv 2 Ml) 4 mg IVP Q2M PRN PRN Reason: NAUSEA Pantoprazole Sodium (Pantoprazole 40 Mg Sdv) 40 mg IVP BID [facility] Last Admin: 03/25/21 17:16 Dose: 40 mg Documented by: Vitals/I&O/Wt Last Vital Signs Temp 97.8 F 03/26/21 19:22 Pulse 100 03/26/21 19:22 Resp 18 03/26/21 19:22 BP 156/72 03/26/21 19:22 Pulse Ox 93 03/26/21 19:22 03/26/21 03/26/21 03/26/21 06:59 14:59 22:59 Output Total 1000 / 1000 250 / 250 250 / 500 Balance -1000 / 110 -250 / -250 -250 / -500 Physical Exam Narrative: EXAM NARRATIVE: GENERAL: Patient is alert, awake and oriented x3. NECK: No jugular vein distension. HEENT: No cyanosis. No icterus. No pallor. HEART: Regular S1 and S2. No murmur, rub or gallop. LUNGS: Clear to auscultate bilaterally. ABDOMEN: Soft, nontender and nondistended. Positive bowel sounds. No guarding, rebound or tenderness. CENTRAL NERVOUS SYSTEM: Grossly nonfocal. EXTREMITIES: Lower extremities without edema bilaterally. Pulses dopplerable in the lower extremities, both dorsalis pedis and posterior tibial. Const: COMMON NORMALS: alert Resp: COMMON NORMALS: clear to auscultation bilaterally AUSCULTATION: clear to auscultation bilaterally Neuro: SENSORIUM/ORIENTATION: Yes alert Data : 03/26/21 03:15 03/26/21 03:15 A&P Assessment and plan (1) Elevated troponin: Patient underwent left heart cath at the referral of Dr. Kelsey. He was noted to have chronically occluded LAD, left main circumflex and obtuse marginal was without any disease. RCA had mid subtotal occlusion. SVG to RCA, SVG to diagonal 2 and [place] to LAD was patent while SVG to diagonal 1 was chronically occluded. Patient was also noted to have significant common femoral right side stenosis however were able to cross through the lesion using 5 [place] sheath. Patient has significant lifestyle limiting right leg claudication. He admits to fatigue of the right leg upon walking few 100 yards. He has calcified mid significant right SFA lesion on the runoff. Patient also has moderate lesion of left SFA otherwise he has good runoff below the knee bilaterally. Both right and left common iliac arteries were calcified. Continue medical management Status: Acute (2) Acute on chronic diastolic (congestive) heart failure: Continue IV fluid Status: Acute (3) Atherosclerosis of coronary artery of [place] heart without angina pectoris: As above we recommend medical management. SVG to diagonal 1 is chronically occluded circumflex and obtuse marginal along with left main are patent LAD is chronically occluded, SVG to RCA is patent, RCA is occluded in the mid segment. Medical management advised. Status: Acute Qualifiers: Coronary Disease-Associated Artery/Lesion type: [place] artery Qualified Code(s): I25.10 - Atherosclerotic heart disease of [place] coronary artery without angina pectoris (4) Normochromic normocytic anemia: Stable hemoglobin treatment as per medicine Status: Acute (5) Acute kidney injury: Stable and improved , cont IVF Status: Acute (6) Carotid bruit: Continue statin continue antiplatelet Status: Acute Qualifiers: Laterality: right Qualified Code(s): R09.89 - Other specified symptoms and signs involving the circulatory and respiratory systems (7) Peripheral arterial occlusive disease: Patient has high-grade right common iliac mid right SFA and mid left SFA lesion. Patient has lifestyle limiting claudication. We will bring him back in 2 weeks for right common femoral and mid right SFA percutaneous angioplasty and possible arthrectomy. Continue medical management for now. 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 Type 2 diabetes. Dyslipidemia. The results of the myocardial perfusion imaging and its implications were discussed with the patient in detail. Patient requires a cardiac catheterization, to further evaluate the coronary status as well as the graft status. However because of the high-grade lesions in the common femoral artery, this could be a technical challenge. Patient needs to have intervention of the peripheral arterial occlusion before proceeding with the arteriogram. The risk of bleeding, hematoma, vascular injury, myocardial infarction, CVA, renal failure and other concomitant complications were explained in detail. Patient understood this well and consented to proceed. I will be discussing the case with my colleague Dr. Hemphill regarding the peripheral intervention. Discussed the current status with the Dr. 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
[2021-03-26] MEDS: guaiFENesin-dextromethorphan UDC 10 mL PO (23:08)
[2021-03-27] VITALS (8 sets, daily range): BP systolic 131; BP diastolic 55; PULSE 73–86; RESP 16–18; TEMP 36.6; O2SAT 95–96
[2021-03-27] MEDS: temazepam 15 mg Capsule PO (00:57)
[2021-03-27] MEDS: amlodipine 5 mg Tablet PO (06:22)
[2021-03-27] MEDS: metoprolol tartrate 50 mg Tablet 100 MG PO (06:22)
--- NOTE | 2021-03-27 06:34 | PC.NURSE ---
Patient up and walking after cath at 0030. Patients posterior pulses, dorsalis pedis pulses doppled. Pulses are present, strong and bounding. Patient tolerated walking well. Incision sight shows no sign swelling or bruising and no drainage is noted on the bandage.
[2021-03-27 06:38] LABS: Glucose Point of Care 222 mg/dL (70-110)
[2021-03-27 06:51] LABS: Basophils # 0.1 10^3/uL (0.0-0.1); Basophils % 0.8 %; Eosinophils # 0.2 10^3/uL (0.0-0.8); Hematocrit 32.2 % (42.0-52.0); Hemoglobin 9.9 g/dL (11.7-16.6); Lymphocytes # 0.9 10^3/uL (0.8-4.8); Lymphocytes % 10.2 %; Mean Corpuscular HGB Conc 30.7 g/dL (30.0-36.0); Mean Corpuscular Hemoglobin 26.8 pg (28.0-34.0); Mean Platelet Volume 10.6 fL (7.4-10.4); Monocytes # 0.5 10^3/uL (0.2-0.9); Monocytes % 5.5 %; Neutrophils # 7.47 10^3/uL (1.8-7.7); Neutrophils % 81.2 %; Nucleated Red Blood Cells % 0 %; Platelet Count 256 10^3/cmm (130-400); Red Cell Distribution Width 15.4 % (12.1-15.1); White Blood Count 9.2 10^3/uL (4.0-10.0)
[2021-03-27 07:17] LABS: Anion Gap 13.9 (5-19); Blood Urea Nitrogen 14 mg/dL (8-23); Calcium 8.3 mg/dL (8.5-10.5); Carbon Dioxide 22 mmol/L (22-29); Chloride 103 mmol/L (98-107); Glomerular Filtration Rate 66.6 mL/min (90-130); Glucose 212 mg/dL (65-115); Osmolality Calculated 287 mOsm/kg (285-295); Potassium 3.9 mmol/L (3.5-5.1); Sodium 135 mmol/L (136-145)
[2021-03-27] MEDS: ferrous gluconate 324 mg Tablet PO (08:18)
[2021-03-27] MEDS: aspirin 81 mg EC Tablet PO (08:18)
[2021-03-27] MEDS: FUROsemide 40 mg Tablet 60 MG PO (08:19)
[2021-03-27] MEDS: atorvastatin 40 mg Tablet 80 MG PO (08:19)
[2021-03-27] MEDS: clopidogrel 75 mg Tablet PO (08:20)
[2021-03-27] MEDS: pantoprazole 40 mg SDV IVP (08:21)
[2021-03-27] MEDS: budesonide 0.5 mg/2 mL Neb INHALATION (09:00)
[2021-03-27] MEDS: ipratropium-albuterol 3 mL Neb INHALATION ×2 (09:01→15:03)
--- NOTE | 2021-03-27 10:56 | P.DS_ITS ---
Discharge Providers Date of Admission: 03/21/21 19:56 Date of Discharge: March 27, 2021 Attending Provider at Admission: Bon Moralez MD Attending Provider at Discharge: Cole Peraza MD Consults: Cardiology: Dr. Kelsey/ Dr. Hemphill Primary Care Provider: Bill Prescott DO Diagnoses at Discharge Discharge Diagnosis (1) Elevated troponin: Status: Acute (2) Acute on chronic diastolic (congestive) heart failure: Status: Acute (3) Atherosclerosis of coronary artery of [place] heart without angina pectoris: Status: Acute Qualifiers: Coronary Disease-Associated Artery/Lesion type: [place] artery Qualified Code(s): I25.10 - Atherosclerotic heart disease of [place] coronary artery without angina pectoris (4) Normochromic normocytic anemia: Status: Acute (5) Acute kidney injury: Status: Acute (6) Carotid bruit: Status: Acute Qualifiers: Laterality: right Qualified Code(s): R09.89 - Other specified symptoms and signs involving the circulatory and respiratory systems (7) Peripheral arterial occlusive disease: Status: Acute Reason for Visit Reason for Visit: DIFF BREATHING, HEART PALPITATIONS Hospital Course Hospital Course Torey Kaba is a 70 year old male was multiple comorbid condition such as coronary disease, PCI/CABG, type 2 diabetes, was recently discharge from the hospital after management of pneumonia with Levaquin, he was diagnosed with pancreatitis, pancreatic cancer marker 19-9 was high, 2.2 cm uncinate process of pancreas showed cyst, MRCP was recommended however patient declined, following with surgery/GI for ERCP, his pancreatitis was thought secondary to use of exenatide, presented today with chief complaint of worsening shortness of breath. Patient is stating that for last 1 month he has been experiencing melanotic stools, he has not noticed any bright bleed per rectum, no hematemesis, nausea, vomiting or recurrence abdominal pain. He has gained 5 pounds in 1 week, no active chest pain, he is endorsing orthopnea, PND and shortness of breath on exertion, he can hardly take 15-20 steps without getting short of breath. Of note, he has been having experiencing productive cough w hich improved after using Spiriva prescribed by Dr. Harris. Pulmonary function test consistent with restrictive lung disease. Patient is stating that he has chronic shortness of breath which got worse on Monday, this was preceded with rhinorrhea which he is attributing to seasonal allergies. No fever. vaccinated for COVID-19. Patient known to the hospital for management of acute blood loss anemia, possible NSTEMI, pneumonia and CHF. For acute blood loss anemia patient required overall 3 units of blood transfusion after which his hemoglobin stabilized to around 10. Patient underwent EGD and colonoscopy with surgery which was negative for any signs of active bleed. Restarted on IV iron supplementation. His hemoglobin during hospitalization remained stable. For hypoxia it is believed patient symptoms are most likely from CHF, acute blood loss anemia. Pneumonia and sepsis was ruled out and patient has remained stable off antibiotics. His CHF symptoms also resolved after improvement is in hemoglobin. CHF For NSTEMI cardiology was consulted. Once patient hemoglobin remained stable he underwent myocardial perfusion imaging to further evaluate his coronary status/graft status and decide on further management. Stress test was concerning for moderate to large area of severely decreased tracer uptake in the inferior, inferior lateral, anterolateral, anterior and apical region with significant reversibility. Patient did not have any further active anginal symptoms hemoglobin remained stable. Patient underwent cardiac angiogram through right femoral approach. Angiogram showed patent CONRYO to LAD, SVG to RCA, SVG to diagonal 2 to S2 diagonal 1 was occluded. It was decided to treat patient medically. Patient was also complaining of mild symptoms of claudication for which CT aortic runoff was done and was concerning for severe peripheral artery occlusive disease. Patient has been advised to follow-up in 2 weeks for further management and possibly peripheral angiogram and angioplasty. Patient's hospital stay was otherwise unremarkable. He is been discharged hemodynamically stable condition with adjusted cardiac and antihypertensives with advised to follow-up with cardiology in 2 weeks for peripheral angiogram and angioplasty. He is to follow-up with his primary care provider within next 1 week. Physical Exam Narrative: EXAM NARRATIVE: General: No acute distress, AO x3, jovial, on RA HEENT: PERRLA, pupils bilaterally equal and reactive Chest: Normal vesicular breath sounds, bilateral basilar rhonchi, occasional crackles all over the lung mueller diffused, equal good air entry bilaterally CVS: S1-S2 regular, no murmurs, no tachycardia, no gallops, no rubs Abdomen: Soft, nontender, no organomegaly, bowel sounds present Neuro: No focal deficits, no facial deformity, AO x3, power 5/5 in all limbs Discharge Data Data Completed and Pending: Completed Studies During Hospitalization Category Date Time Status CT angio abd aort a runof [id number] Rout ine Cat Scan 03/25/21 13:[address] chest wo con 7 1250 Urgent Cat Scan 03/21/21 19:51 Completed Sestamibi Stress Test Request Routi ne Exams 03/24/21 10:08 Completed XR chest 1V jovita ble [id number] Urgent Exams 03/21/21 16:40 Completed NM eric perf SPECT r/s* [id number] Routin e Nuc Med 03/25/21 07:00 Completed NM pul vent and p erfus* [id number] Routi ne Nuc Med 03/23/21 14:53 [place] [id number] Rout ine Ultrasound 03/22/21 10:08 Completed CV carotid duplex BI* [id number] Routine Ultrasound 03/22/21 10:08 Completed CV echo limited 9 3308 Routine Ultrasound 03/22/21 22:34 Completed Pending at discharge Category Date Time Status AIRLINE DISPATCHER request for service Routin e Exams 03/26/21 07:00 Taken Blood Culture Sta t Lab 03/22/21 13:11 Results Immunochemical Fe winston OCB Routine Lab 03/22/21 12:09 Ordered Labs from last 24 hours 03/27/21 03/27/21 03/27/21 06:33 05:10 05:10 WBC 9.2 RBC 3.70 L Hgb 9.9 L Hct 32.2 L MCV 87.0 MCH 26.8 L MCHC 30.7 RDW 15.4 H Plt Count 256 MPV 10.6 H Neut % (Auto) 81.2 Lymph % (Auto) 10.2 [place] % (Auto) 5.5 Eos % (Auto) 2.0 Baso % (Auto) 0.8 Neut # (Auto) 7.47 Lymph # (Auto) 0.9 [place] # (Auto) 0.5 Eos # (Auto) 0.2 Baso # (Auto) 0.1 Nucleated RBC % (a uto) 0 Nucleated RBCs # 0.0 APTT Sodium 135 L Potassium 3.9 Chloride 103 Carbon Dioxide 22 Anion Gap 13.9 BUN 14 Creatinine 1.1 GFR Calculation 66.6 L Glucose 212 H POC Glucose 222 H Calculated Osmolal ity 287 Calcium 8.3 L 03/26/21 03/26/21 03/26/21 20:28 16:20 14:19 WBC RBC Hgb Hct MCV MCH MCHC RDW Plt Count MPV Neut % (Auto) Lymph % (Auto) [place] % (Auto) Eos % (Auto) Baso % (Auto) Neut # (Auto) Lymph # (Auto) [place] # (Auto) Eos # (Auto) Baso # (Auto) Nucleated RBC % (a uto) Nucleated RBCs # APTT 31.9 D 104.7 H Sodium Potassium Chloride Carbon Dioxide Anion Gap BUN Creatinine GFR Calculation Glucose POC Glucose 211 H Calculated Osmolal ity Calcium 03/26/21 11:41 WBC RBC Hgb Hct MCV MCH MCHC RDW Plt Count MPV Neut % (Auto) Lymph % (Auto) [place] % (Auto) Eos % (Auto) Baso % (Auto) Neut # (Auto) Lymph # (Auto) [place] # (Auto) Eos # (Auto) Baso # (Auto) Nucleated RBC % (a uto) Nucleated RBCs # APTT Sodium Potassium Chloride Carbon Dioxide Anion Gap BUN Creatinine GFR Calculation Glucose POC Glucose 191 H Calculated Osmolal ity Calcium Addt'l Data from Hospital Stay: Laboratory Results WBC 9.2 10^3/uL (4.0- 10.0) 03/27/21 05:10 RBC 3.70 10^6/uL (4.1 -5.3) L 03/27/21 05:10 Hgb 9.9 g/dL (11.7-16 .6) L 03/27/21 05:10 Hct 32.2 % (42.0-52.0 ) L 03/27/21 05:10 MCV 87.0 fL (80-94) 03/27/21 05:10 MCH 26.8 pg (28.0-34. 0) L 03/27/21 05:10 MCHC 30.7 g/dL (30.0-3 6.0) 03/27/21 05:10 RDW 15.4 % (12.1-15.1 ) H 03/27/21 05:10 Plt Count 256 10^3/cmm (130 -400) 03/27/21 05:10 MPV 10.6 fL (7.4-10.4 ) H 03/27/21 05:10 Neut % (Auto) 81.2 % 03/27/21 05:10 Lymph % (Auto) 10.2 % 03/27/21 05:10 [place] % (Auto) 5.5 % 03/27/21 05:10 Eos % (Auto) 2.0 % 03/27/21 05:10 Baso % (Auto) 0.8 % 03/27/21 05:10 Neut # (Auto) 7.47 10^3/uL (1.8 -7.7) 03/27/21 05:10 Lymph # (Auto) 0.9 10^3/uL (0.8- 4.8) 03/27/21 05:10 [place] # (Auto) 0.5 10^3/uL (0.2- 0.9) 03/27/21 05:10 Eos # (Auto) 0.2 10^3/uL (0.0- 0.8) 03/27/21 05:10 Baso # (Auto) 0.1 10^3/uL (0.0- 0.1) 03/27/21 05:10 Nucleated RBC % (a uto) 0 % 03/27/21 05:10 Nucleated RBCs # 0.0 /100WBC 03/27/21 05:10 APTT 31.9 SECONDS (23. 9-36.7) D 03/26/21 16:20 D-Dimer 1.11 ug/mIFEU (0- 0.59) H 03/22/21 13:11 Sodium 135 mmol/L (136-1 45) L 03/27/21 05:10 Potassium 3.9 mmol/L (3.5-5 .1) 03/27/21 05:10 Chloride 103 mmol/L (98-10 7) 03/27/21 05:10 Carbon Dioxide 22 mmol/L (22-29) 03/27/21 05:10 Anion Gap 13.9 (5-19) 03/27/21 05:10 BUN 14 mg/dL (8-23) 03/27/21 05:10 Creatinine 1.1 mg/dL (0.7-1. 2) 03/27/21 05:10 GFR Calculation 66.6 mL/min (90-1 30) L 03/27/21 05:10 Glucose 212 mg/dL (65-115 ) H 03/27/21 05:10 POC Glucose 222 mg/dL (70-110 ) H 03/27/21 06:33 Estimat Average Gl ucose 111 03/23/21 04:42 Hemoglobin A1c 5.5 % (4.0-6.0) 03/23/21 04:42 Calculated Osmolal ity 287 mOsm/kg (285- 295) 03/27/21 05:10 Calcium 8.3 mg/dL (8.5-10 .5) L 03/27/21 05:10 Magnesium 2.0 mg/dL (1.7-2. 3) 03/22/21 02:55 Iron 23 ug/dL (59-158) L 03/22/21 02:55 TIBC 330 mcg/dl 03/22/21 02:55 % Saturation 6.9 % (20-50) L 03/22/21 02:55 Unsat Iron Binding 307 ug/dL (112-34 7) 03/22/21 02:55 Total Bilirubin 0.6 mg/dL (0.15-1 .2) 03/26/21 03:15 AST 15 U/L (0-40) 03/26/21 03:15 ALT 12 U/L (0-41) 03/26/21 03:15 Alkaline Phosphata se 80 IU/L (40-130) 03/26/21 03:15 Troponin T Baselin e 123 ng/L (0-15) H* 03/21/21 16:05 Troponin T 120 Min alana 122.1 ng/L (0-15) H 03/21/21 18:32 Delta Troponin T -0.9 ABS# (0-10) L 03/21/21 18:32 Troponin T Hi Sens 6Hr 97.01 ng/L (0-15) H 03/21/21 22:10 Troponin T Hi Sens 6Hr Delta -25.99 ng/L (0-12 ) L 03/21/21 22:10 NT-Pro-B Natriuret Pep 2155 pg/mL (0-125 ) H 03/21/21 16:05 Total Protein 6.6 g/dL (6.6-8.7 ) 03/26/21 03:15 Albumin 3.6 g/dL (3.5-5.2 ) 03/26/21 03:15 Globulin 3.0 g/dL (1.3-4.6 ) 03/26/21 03:15 Triglycerides 79 mg/dL (0-150) 03/23/21 04:42 Cholesterol 102 mg/dL (0-200) 03/23/21 04:42 LDL Cholesterol, C alc 58 mg/dL (50-129) 03/23/21 04:42 Total VLDL Cholest tino 16 mg/dL (0-30) 03/23/21 04:42 HDL Cholesterol 28 mg/dL (60-100) L 03/23/21 04:42 Cholesterol/HDL Ra jomar 3.64 mg/dL (1.0-5 .00) 03/23/21 04:42 Vitamin B12 542 pg/mL (232-12 45) 03/22/21 02:55 Folate 8.7 ng/mL (4.5-32 .2) 03/22/21 02:55 Procalcitonin 0.10 ng/mL (0-0.5 ) 03/22/21 02:55 TSH 1.79 uIU/mL (0.27 -4.20) 03/22/21 02:55 Urine Color Straw (Yellow) 03/22/21 13:45 Urine Appearance Clear (CLEAR) 03/22/21 13:45 Urine pH 7 (5-7) 03/22/21 13:45 Ur Specific Gravit y 1.005 (1.005-1.0 30) 03/22/21 13:45 Urine Protein Neg (Negative) 03/22/21 13:45 Urine Glucose (UA) Norm (Normal) 03/22/21 13:45 Urine Ketones Negative (Negati ve) 03/22/21 13:45 Urine Blood Neg (Negative) 03/22/21 13:45 Urine Nitrate Negative (Negati ve) 03/22/21 13:45 Urine Bilirubin Neg (Negative) 03/22/21 13:45 Urine Urobilinogen Norm mg/dL (Negat miguel angel) 03/22/21 13:45 Ur Leukocyte Lucinda ase Negative (Negati ve) 03/22/21 13:45 Urine RBC None /hpf (0-2) 03/22/21 13:45 Urine WBC Rare /hpf (0-5) 03/22/21 13:45 Ur Squamous Epith Cells None /hpf (0-5) 03/22/21 13:45 Amorphous Sediment Not Reportable 03/22/21 13:45 Urine Bacteria Trace /hpf (NONE) 03/22/21 13:45 SARS-CoV-2 Ag (Rap id) Negative (Negati ve) 03/21/21 17:30 Blood Type O Positive 03/21/21 18:32 Rho(D) Type Positive / 4+ 03/21/21 18:32 Antibody Screen Negative 03/21/21 18:32 Crossmatch See Detail 03/21/21 18:32 Impressions Chest X-Ray 03/21/21 16:40 IMPRESSION: Streaky opacities at the left lung base are consistent with pneumonia. Chest CT 03/21/21 19:51 IMPRESSION: 1. Multifocal bilateral pulmonary ground-glass opacities and infiltrates are consistent with atypical pneumonia. 2. Small left pleural effusion with peripheral enhancement and minimal internal complexity raises concern for possible empyema. 3. Moderate right pleural effusion. 4. Multivessel atherosclerotic disease which involves the coronary arteries. 5. There are centrilobular emphysematous changes in the bilateral lungs. Radiation Dose CTDIVOL = (mGy): DLP = 1021.88 (mGy-cm) Pulmonary Perfusion Imaging 03/23/21 14:53 IMPRESSION: 1. Low probability for pulmonary embolus. Aorta w/Runoff CTA 03/25/21 13:45 IMPRESSION: 1. Normal caliber abdominal aorta. 2. Densely calcified common femoral arteries bilaterally with high-grade stenosis and near occlusion in a symmetric pattern. 3. Short segment occlusion of both superficial femoral arteries at the origins. The superficial femoral arteries are occluded distally with dense calcification. 4. Moderate to severe segmental stenosis involving the popliteal arteries with dominant posterior tibial and peroneal runoff to the ankle. 5. Moderate stenosis celiac artery origin. Severe stenosis of the SMA origin. 6. Small bilateral pleural effusions with patchy infiltrate/atelectasis in the lower lobes bilaterally. Echocardiogram: CONCLUSIONS Normal left ventricular size with borderline low ejection fraction of 50 to 55%. Wall motion abnormalities as mentioned above Moderately increased left atrial size. Mild to moderate tricuspid regurgitation Moderatel mitral valve regurgitation. Thickened mitral valve. Moderate mitral annular calcification. There is no pericardial effusion. There are no intracardiac masses. Comparison with the previous study is difficult because of the difference in the technical quality. Lexiscan stress test: CONCLUSION: 1. Nonspecific EKG changes with the LexiScan infusion 2. No LexiScan induced chest pain or cardiac arrhythmia 3. Normal blood pressure and heart rate response 4. Sestamibi/sestamibi perfusion scan pending; see separate report. Procedures Performed: EGD/colonoscopy Cardiac angiogram Vitals: Last Vital Signs Temp 97.8 F 03/26/21 19:22 Pulse 73 03/27/21 09:09 Resp 17 03/27/21 09:01 BP 195/75 03/26/21 23:45 Pulse Ox 96 03/27/21 09:01 Discharge Plan Discharge Patient Disposition: Home Condition: Stable Prescriptions: New ferrous gluconate 324 mg (37.5 mg iron) Tablet 324 mg PO BIDWM Qty: 60 RF: 0 Benzonatate [Tessalon Pearls] 100 mg PO TID PRN (Reason: cogh) Qty: 10 RF: 0 Coreg 25 mg tablet 25 mg PO BID Qty: 60 RF: 0 Continued amlodipine 5 mg tablet 5 mg PO DAILY@0700 RF: 0 cetirizine 10 mg capsule 10 mg PO DAILY@1800 RF: 0 fluticasone propionate [Allergy Relief (fluticasone)] 50 mcg/actuation spray,suspension 2 spray INTRANASAL DAILY@0700 RF: 0 metformin 1,000 mg tablet 1,000 mg PO BID@0700,1800 RF: 0 albuterol sulfate [ProAir HFA] 90 mcg/actuation HFA aerosol inhaler 2 puff inhalation Q6H PRN (Reason: Shortness Of Breath Or Wheezing) RF: 0 clopidogrel 75 mg tablet 75 mg PO DAILY RF: 0 lisinopril 40 mg tablet 40 mg PO DAILY RF: 0 lovastatin 40 mg tablet 40 mg PO DAILY RF: 0 budesonide-formoterol 160-4.5 mcg/actuation Hfa Aerosol Inhaler 2 puff INHALATION BID RF: 0 aspirin 81 mg Tablet,Delayed Release (Dr/Ec) 81 mg PO DAILY@0700 RF: 0 calcium carbonate [Tums] 200 mg calcium (500 mg) Tablet,Chewable 200 mg PO QID PRN (Reason: EXCESS GAS) RF: 0 insulin aspart U-100 [Novolog Flexpen U-100 Insulin] 100 unit/mL (3 mL) Insulin Pen 0 unit SUBCUT TID RF: 0 Changed Lantus U-100 Insulin 10 unit PO BID@0700,1800 Qty: 0 RF: 0 furosemide 40 mg Tablet 60 mg PO DAILY Qty: 0 RF: 0 Discontinued metoprolol tartrate 100 mg tablet 100 mg PO BID@0700,1800 RF: 0 Discharge Orders: Discharge Order (Routine); Ordered 03/27/21 Ordered By: Cole Peraza Referrals: Bon Hemphill MD [Physician] - 2 weeks Bill Prescott DO [Primary Care Provider] - 7-10 days (Blood pressure diary.) Discharge Diet: Cardiac and Diabetic Discharge Activity: Resume usual activity Patient Instructions: Benzonatate (By mouth), Carvedilol (By mouth), Ascorbic Acid/Cyanocobalamin/Ferrous Fumarate (By mouth), Myocardial Infarction (DC), GI Discharge Instructions, Opioid Safety Activity Restrictions/Additional Instructions: Please follow-up with a primary care provider within next 1 week. Please maintain a blood pressure diary at home by taking blood pressure twice a day for further adjustment of antihypertensives. Please follow-up with Dr. Hemphill in 2 weeks for peripheral angiogram/peripheral angioplasty. Discharge Attestations Time Spent in Discharge Care*: greater than 30 min Specific Discharge Activities: educating patient, educating and/or supporting family/caregiver, discussing with pcp/other providers, discussing with mental health case manager/social workers/dc planners, documenting/other paperwork and evaluating patient/reviewing data Status at Discharge: Cognitive status at discharge: cognitively intact , Behavioral status at discharge: cooperative , Functional status at discharge: independent ambulation Overall status at discharge: patient is back to baseline Quality Metrics Clinical Quality Measures During this hospital stay, did patient experience: None Coding Level of Care Code Acute Chg FW DC note Diagnoses Elevated troponin R77.8 Acute on chronic diastolic (congestive) heart failure I50.33 Atherosclerosis of coronary artery of [place] heart without angina pectoris I25.10 Coronary Disease-Associated Artery/Lesion type: [place] artery Normochromic normocytic anemia D64.9 Acute kidney injury N17.9 Carotid bruit R09.89 Laterality: right Peripheral arterial occlusive disease I77.9
[2021-03-27 12:30] LABS: Glucose Point of Care 253 mg/dL (70-110)
== END 2021-03-27 16:20 | disposition home or self-care (01) | DRG 281 ==
LOC: ER 18:44 → CSU 20:57 → ER IP 03-23 22:48 → CSU 03-23 22:49
PROVIDERS: Internal Medicine Cardiovascular Disease; Surgery; Admitting Provider Internal Medicine; Emergency Provider Family Medicine; PCP Emergency Medicine Emergency Medical Services; Visit Provider Student in an Organized Health Care Education/Training Program
PROC: 0DJ08ZZ Inspection of Upper Intestinal Tract, Via Natural or Artificial Opening Endoscopic (ICD-10-PCS; CPT 43235; principal; 2021-03-23 13:00)
PROC: 0DJD8ZZ Inspection of Lower Intestinal Tract, Via Natural or Artificial Opening Endoscopic (ICD-10-PCS; CPT 45378; 2021-03-23 13:00)
PROC: B2131ZZ Fluoroscopy of Multiple Coronary Artery Bypass Grafts using Low Osmolar Contrast (ICD-10-PCS; principal; 2021-03-26 07:00)
PROC: B2131ZZ Fluoroscopy of Multiple Coronary Artery Bypass Grafts using Low Osmolar Contrast (ICD-10-PCS; 2021-03-26 07:00)
DX: I11.0 Hypertensive heart disease with heart failure (principal); I21.4 Non-ST elevation (NSTEMI) myocardial infarction; I25.810 Atherosclerosis of coronary artery bypass graft(s) without angina pectoris; N17.9 Acute kidney failure, unspecified; D62 Acute posthemorrhagic anemia; K86.2 Cyst of pancreas; K92.1 Melena; I50.33 Acute on chronic diastolic (congestive) heart failure; I25.10 Atherosclerotic heart disease of native coronary artery without angina pectoris; Z95.5 Presence of coronary angioplasty implant and graft; Z95.1 Presence of aortocoronary bypass graft; E11.65 Type 2 diabetes mellitus with hyperglycemia; E11.51 Type 2 diabetes mellitus with diabetic peripheral angiopathy without gangrene; Z87.01 Personal history of pneumonia (recurrent); J44.9 Chronic obstructive pulmonary disease, unspecified; I25.2 Old myocardial infarction; E78.5 Hyperlipidemia, unspecified; Z86.010 Personal history of colon polyps; Z87.891 Personal history of nicotine dependence; I83.93 Asymptomatic varicose veins of bilateral lower extremities; K42.9 Umbilical hernia without obstruction or gangrene; K76.0 Fatty (change of) liver, not elsewhere classified; R97.8 Other abnormal tumor markers; Z79.82 Long term (current) use of aspirin; Z79.51 Long term (current) use of inhaled steroids; Z79.02 Long term (current) use of antithrombotics/antiplatelets; Z79.4 Long term (current) use of insulin
CPT/HCPCS: 36415; 36416; 36430; 43235; 45378; 71045; 71250; 75625; 75635; 78014; 78452; 80048; 80053; 80061; 81001; 82607; 82746; 82962; 83036; 83540; 83550; 83735; 83880; 84145; 84443; 84484; 85025; 85378; 85730; 86403; 86850; 86900; 86920; 87040; 87070; 87205; 87426; 87449; 87641; 93005; 93017; 93308; 93459; 93880; 93925; 94640; 96365; 96372; 96375; 99285; A9500; A9540; A9567; C1769; C1887; C1894; C9113; G0278; J0456; J0696; J1644; J1650; J1815; J1940; J2250; J2704; J2785; J3010; J3490; J7030; J7050; J7626; P9016; Q0144; Q0163; Q9967

== ENCOUNTER → 2021-04-14 13:33 | Outpatient (BNVA) | payer OTHER, MEDICARE, SELFPAY | PROVIDERS: PCP Emergency Medicine Emergency Medical Services; Visit Provider Internal Medicine | DX: R70.0 Elevated erythrocyte sedimentation rate (principal); M25.50 Pain in unspecified joint; Z87.891 Personal history of nicotine dependence | CPT/HCPCS: 99203 ==

== ENCOUNTER → 2021-04-29 14:34 | Outpatient (BNVA) | payer OTHER, SELFPAY | PROVIDERS: PCP Emergency Medicine Emergency Medical Services; Visit Provider Internal Medicine | DX: M25.50 Pain in unspecified joint (principal); R70.0 Elevated erythrocyte sedimentation rate; D64.9 Anemia, unspecified; E11.9 Type 2 diabetes mellitus without complications; Z79.4 Long term (current) use of insulin; Z87.891 Personal history of nicotine dependence | CPT/HCPCS: 99214 ==

== ENCOUNTER 2021-05-06 14:39 | Outpatient (CLI) | payer OTHER, SELFPAY ==
--- NOTE | 2021-05-06 14:46 | US_ITS ---
WS: [id number] ULTRASOUND RENAL TECHNIQUE: Ultrasound examination of both kidneys. CLINICAL INFORMATION: STAGE 3B CHRONIC KIDNEY DZ COMPARISON: None. FINDINGS: RIGHT:Simple superior pole right renal cyst measuring 10 x 10 x 10 mm Right kidney is normal in size and appearance. Echogenicity: Normal. Cortical thickness: 1.1 cm; Normal. Hydronephrosis: None. Perinephric fluid: None. Right kidney measures: 11.3 cm x 4.0 cm x 5.7 cm. LEFT: Left kidney is normal in size and appearance. Echogenicity: Normal. Cortical thickness: 1.9 cm; Normal. Hydronephrosis: None. Perinephric fluid: None. Left kidney measures: 11.9 cm x 4.8 cm x 6.6 cm. Normal visualized aorta. Bladder is decompressed. US/US renal BI* [id number] IMPRESSION: 1. No hydronephrosis in either kidney. 2. Simple superior pole right renal cyst measuring 10 x 10 x 10 mm
== END 2021-05-06 14:40 | disposition home or self-care (01) ==
LOC: RAD 14:39
PROVIDERS: PCP Emergency Medicine Emergency Medical Services; Visit Provider Internal Medicine Nephrology
DX: N18.32 Chronic kidney disease, stage 3b (principal); N28.1 Cyst of kidney, acquired
CPT/HCPCS: 76770

== ENCOUNTER → 2021-05-19 09:21 | Outpatient (BNVA) | payer OTHER, SELFPAY | PROVIDERS: PCP Emergency Medicine Emergency Medical Services; Referring Provider Internal Medicine Cardiovascular Disease; Visit Provider Internal Medicine Cardiovascular Disease | DX: I77.9 Disorder of arteries and arterioles, unspecified (principal); Z01.818 Encounter for other preprocedural examination; Z20.822 Contact with and (suspected) exposure to COVID-19 | CPT/HCPCS: 80048; 85025; 85610; 87635 ==

== ENCOUNTER 2021-05-24 10:11 | Observation (INO) | payer OTHER, MEDICARE, SELFPAY ==
[2021-05-24] VITALS (23 sets, daily range): BP systolic 125–167; BP diastolic 45–86; PULSE 58–86; RESP 16–57; TEMP 36.3–36.4; O2SAT 94–95; BMI 29.7
--- NOTE | 2021-05-24 06:00 | XACV_ITS ---
Ht: 180 cm Wt: 97 kg BSA: 2.22 m2 Any Known Allergies: Other Gender: Male : 1950 Exam Type: Invasive Peripheral Vascular Procedure(s): Procedure Description: Peripheral Cath Diagnostic Procedure Procedure Description: Lower extremities' angiography Procedure Description: Peripheral vascular Intervention Procedure Description: PV Balloon Procedure Description: PV Atherectomy Exam Priority: Routine Lower Extremity Interventional Findings By using right posterior tibial artery approach 6 Occitan sheath was placed. Glidewire with the help of seeker was used to cross the lesions retrograde fashion into the aorta. Viper wire was exchanged through seeker. Using 1.25 bur CSI atherectomy was performed in right SFA and common femoral artery. Multiple balloon angioplasties were performed . E xcellent angiographic result was achieved in right common iliac, right external iliac, right common femoral, right SFA tibioperoneal trunk and below the knee two-vessel runoff. . Conclusions Indication for peripheral angiogram/percutaneous angioplasty: Lifestyle limiting claudication . For lifestyle limiting claudication and subtotally occluded right common femoral and mid to distal high-grade multiple highly calcified stenosis, patient underwent peripheral angiogram/percutaneous intervention through right posterior tibial approach. . Recommendations 1-Return to inpatient for close monitoring and routine cath care2-Risk factor modification for secondary prevention3-Statin and aspirin 81 mg life--long, if tolerated4-Patient was pre-loaded with 300 mg of Plavix, continue Plavix 75mg p.o. daily for at least 3 months. 5-Continue optimal medical management6-Follow up with Dr. Hemphill in four weeks and your primary care in 10 days. Hemodynamic Data Phase:Rest AO : 121.0 / 55.0 ( 79.0 ) @ 8:28:00 AM Access Site Site: Right Pedal Sheath Size: 6 Fr Hemost... Success: Unsuccessful Procedure Details Findings Procedure Consent Obtained. Pre-Procedure Time Out. Identified patient by full name and date of as verbalized by the patient/guarantor. Does the consent match the physician's order: Yes. Accurate & Complete Informed Consent: Yes. Inpatient/Outpatient History & Physical on Chart: Yes. If H&P is completed, is and addenduem needed: No. Visualize and Verify Site with Patient/Guarantor: Yes. Relevant Radiology Images available: Yes. Procedure started. Gale Hogan RN circulating with Trae Cazares RN, [facility]. Correct patient, site and procedure confirmed by cath team. Current diagnosis: PAD. PERRLA. Strong, equal hand maintenance technician bilaterally. Lungs clear x 5 lobes. IV Site on Arrival: 20 gauge in the left hand. IV Fluids: 0.9% NaCl at KVO. 0 mL infused prior to lab support technician. Pre Procedural Pulses: bilateral radial was 3+. Pre Procedural Pulses: bilateral dorsalis pedis was Doppled. Pre Procedural Pulses: bilateral posterior tibial was Doppled. Oxygen started at 2liters/min via nasal canula. bilateral groins was prepped with chloroprep then draped in the usual sterile fashion. Physician notified. Baseline sample Acquired. HR: 69 BPM. Equipment: 6F - Femoral. Cardiac Cath Pack. ACIST Manifold Kit Model BT 2000. Heparinized Saline (2 units/mL), 1000 mL bag. Kit, Micropuncture X 2. Patient's spouse in CPRU. Dr Hemphill will spdate at the completion of the case. Physician arrived. Physician scrubbed in. Immediate Pre-Procedure Time Out. Correct Patient: Yes; Correct Procedure: Yes; Correct Site: Yes; Correct Patient Position: Yes; Correct Supplies: Yes; Dried Flammable Prep: Yes; Blood Products Available: N/A. Lidocaine 1% infiltrated to the left groin. Arterial access obtained with micropuncture set and the use of Ultrasound guidance, unable to wire. Wire and Access needle out. Dr. Hemphill scrubbed out to view CT angio. Dr. Hemphill scrubbed back in. Zainab Cheng Tech, at bedside to assist with Ultrasound guided access. Add inventory: Pedal Access Kit, 6 fr Terumo glidesheath. Lidocaine 1% infiltrated to the right pedal. Arterial access obtained with pedal access kit. Add inventory: Viperwire Advance Peripheral, Diamondback 360 2.0 Gavin Orbital Atherectomy System, Seeker Support Catheter. Seeker support catheter in over the glidewire. Glidewire out, hand injection in the aorta performed. Viperwire in through the Seeker support catheter to the Right Common Iliac. Seeker support catheter out over the Viperwire. 2.0 Gavin in over the Viperwire. Orbital Atherectomy of the Right Distal SFA up to the Right Common Iliac performed. 2.0 [place] out over the Viperwire. Seeker support catheter in over the Viperwire. Viperwire out, Glidewire in. Inflation number : 1 A AB [place] 35 DATA CONVERSION DEVELOPER Catheter [id number] was prepped and advanced across the Common Femoral, Right , then inflated to 6 LIVE for 2:09 seconds. Inflation number: 1 The AB Poneto 35 DATA CONVERSION DEVELOPER Catheter [id number] was reinflated across the Superficial Femoral, Right, to 8 LIVE for 2:05 seconds. Balloon out over wire. Inflation number : 2 A AB ARMADA 35 OTW [id number] was prepped and advanced across the Common Femoral, Right , then inflated to 6 LIVE for 0:47 seconds. Inflation number: 3 The AB ARMADA 35 OTW [id number] was reinflated across the Common Femoral, Right, to 8 LIVE for 2:04 seconds. Balloon out. Seeker support catheter in over the Glidewire. Glidewire out. Hand injections in DSA performed x 5 of the right leg from the Common Femoral down to the distal SFA. Seeker support catheter out over the Glidewire. Inflation number : 2 A AB ARMADA 35 OTW [id number] was prepped and advanced across the Superficial Femoral, Right , then inflated to 10 LIVE for 2:02 seconds. Balloon out. A 5 serbian MPA1 catheter in over the glidewire wire. Glidewire out. Hand injection in DSA performed. Glidewire in, MPA1 catheter out. Glidewire out. Hand injection in DSA performed through the sheath. Dr. Hemphill scrubbed out. TR band placed. Hemostasis obtained. Post Procedure: Pulses reassessed and unchanged. PERRLA. Strong, equal hand maintenance technician bilaterally. No VTE prophylaxis required. Medication's Wasted: Lidocaine 1% = 13 mL. Medication's Wasted: Nitro = 49.2 mg. Medication's Wasted: Heparin = 1000 units. Post-op diagnosis: Severe PAD with chronically occluded right common femoral, Mid SFA, Distal SFA. Complications: none. Estimated blood loss: 5mL-10mL. Procedure completed. Patient transferred by bed to 1st floor. Vital chart was stopped. Procedure Medications Start: 7:51 AM Stop: 7:51 AM Medication: Versed Amount: 1 mg Start: 7:56 AM Stop: 7:56 AM Medication: Versed Amount: 1 mg Start: 8:09 AM Stop: 8:09 AM Medication: Versed Amount: 1 mg Start: 8:54 AM Stop: 8:54 AM Medication: Heparin Amount: 5000 units Route: I.V. Start: 9:06 AM Stop: 9:06 AM Medication: Versed Amount: 1 mg Start: 9:07 AM Stop: 9:07 AM Medication: Fentanyl Amount: 25 mcg Route: I.V. Start: 9:21 AM Stop: 9:21 AM Medication: Nitrogylcerin Amount: 400 mcg Route: I.A. Start: 9:40 AM Stop: 9:40 AM Medication: Nitrogylcerin Amount: 400 mcg Route: I.A. I, the attending physician, have reviewed and verified all procedure medications. Yes, all medications given per verbal order History/Risk Factors Hypertension: Yes Dyslipidemia: Yes Peripheral Arterial Disease (PAD): Yes Obesity: Yes Renal Disease: No Tobacco Use: Former Prior Interventions PCI: No CABG: No Valve Surgery: No Report Signatures Finalized by Bon Hemphill MD on 06/03/2021 09:02 PM
[2021-05-24] MEDS: diphenhydrAMINE 50 mg Capsule PO (06:50)
--- NOTE | 2021-05-24 07:46 | P.HP_ITS ---
Same Day Surgery H&P Indication for Procedure/HPI DATE OF PROCEDURE: May 24, 2021 CHIEF COMPLAINT/INDICATIONFOR SURGICAL PROCEDURE: Lifestyle limiting claudication of the right leg PREOP DIAGNOSIS: Lifestyle limiting claudication with severe peripheral arterial disease PLANNED PROCEDRUE: Operation Date: 05/24/21 07:00 Proposed Procedures p Peripheral Diagnostic(Bilateral) - Bon Hemphill MD 70-year-old male past medical history significant for hypertension hyperlipidemia CABG chronic kidney disease for worsening of lifestyle limiting claudication had CTA and peripheral angiogram showing moderate to severe right common iliac and SFA brought in today for peripheral angiogram/intervention. Patient continues to be on cilostazol despite of that he is not able to improve his walking distance. He has underlying chronic kidney disease today creatinine is 1.2. He understand the risk of contrast-induced nephropathy leading to transient or permanent dialysis. He understand the risk of major minor bleed urgent emergent vascular surgery, infection hematoma bleeding, he understand the risk for thromboembolic phenomena leading to acute limb ischemia, limb threatening ischemia and loss of limb. He would like to proceed with it. Medications/Allergies* Home Medications Medication Instructions Recorded Confirmed Type amlodipine 5 mg tablet 5 mg PO DAILY@0700 02/26/20 05/21/21 History cetirizine 10 mg capsule 10 mg PO DAILY@1800 cap 02/26/20 05/21/21 History metformin 1,000 mg tablet 1,000 mg PO BID@0700,1800 02/26/20 05/24/21 History aspirin 81 mg PO DAILY@0700 01/02/21 05/21/21 History calcium carbonate [Tums] 200 mg PO QID PRN 01/02/21 05/21/21 History albuterol sulfate 90 mcg/actuation 2 puff INHALATION Q6H PRN 01/25/21 05/21/21 History aerosol inhaler clopidogrel 75 mg tablet 75 mg PO DAILY 01/25/21 05/21/21 History budesonide-formoterol 2 puff INHALATION BID 03/22/21 05/21/21 History Lantus U-100 Insulin 50 unit PO BID@0700,1800 04/20/21 05/24/21 History fluticasone propionate 50 2 spray INTRANASAL DAILY@0700 PRN 04/20/21 05/21/21 History mcg/actuation nasal spray,suspension insulin aspart U-100 100 unit/mL 10 unit SUBCUT TID PRN ml 04/20/21 05/24/21 History (3 mL) subcutaneous pen lovastatin 40 mg tablet 20 mg PO DAILY tab 04/20/21 05/21/21 History methocarbamol 750 mg tablet 750 mg PO Q12H PRN tab 04/20/21 05/21/21 History diclofenac sodium 1 % topical gel 2 g TOPICAL QID 05/14/21 05/21/21 History ferrous gluconate 324 mg (38 mg 324 mg PO BID tab 05/14/21 05/21/21 History iron) tablet furosemide 80 mg PO DAILY 05/21/21 05/21/21 History Allergies/Adverse Reactions Allergy/AdvReac Type Severity Reaction Status Date / Time apricot Allergy Unknown Verified 05/24/21 06:44 Penicillins Allergy Unknown Verified 05/24/21 06:44 Current Medications: Generic Name Dose Route Start Last Admin Trade Name Freq PRN Reason Stop Dose Admin Sodium Chloride 1,000 mls @ 50 mls/hr 05/24/21 06:00 05/24/21 06:49 Sodium Chloride 0.9% IV 05/25/21 01:59 Not Given .Q20H ONE Pertinent History/Comorbid Conditions* Medical History (Updated 05/14/21 @ 13:31 by Óscar Flaherty MD) Acute kidney injury Acute on chronic diastolic (congestive) heart failure Anemia Atherosclerosis of coronary artery of [place] heart without angina pectoris Carotid bruit CHF exacerbation CKD (chronic kidney disease) Community acquired pneumonia COPD (chronic obstructive pulmonary disease) Cyst Diabetes Elevated troponin History of myocardial infarction in adulthood Hyperlipidemia Hypertension Normochromic normocytic anemia Normocytic anemia NSTEMI (non-ST elevated myocardial infarction) Pleural effusion Restrictive lung disease Sepsis Umbilical hernia, incarcerated Surgical History (Updated 03/22/21 @ 13:53 by Jerome Obrien MD) H/O esophagogastroduodenoscopy History of colonoscopy with polypectomy History of coronary angioplasty with insertion of stent Hx of CABG Family History (Updated 02/26/20 @ 15:00 by Evonne Moss RN) Denies family history of Anesthesia complication Bleeding disorder Social History Smoking and tobacco status: former smoker Quit status (tobacco): has quit using tobacco Year quit tobacco: 1983 [id number] Second hand smoke exposure: No Smoking risk assessment/counseling performed?: Yes Alcohol intake: former Adopted: No Caregiver/support person: Yes Lives independently: Yes Household members: spouse Housing: House Marital status: service: Yes Current occupational status: retired Pets and animals: No History of recent travel: No Leisure activites: exercise Sexually active: No Current gender identity: Male Mayra/Jew: Tenriism Special mayra needs: No Agree to transfusion: No Financial difficulty paying for basics: Decline to Answer Pertinent Exam Findings alert, oriented x 3 and clear to auscultation bilaterally Conscious Sedation Assessment PATIENT ASSESSED PRIOR TO SEDATION, WITH NO CHANGE NOTED: Yes AIRWAY EVAL/ANESTHESIA PLAN: normal airway, ASA II, Risks, benefits & a lternatives of sedation and/or procedure discussed and Patient agrees to continue as planned Recommendations Surgery/Procedure today Coding Level of Care Code Acute Printing Sales Representative for Georges Sanderson
[2021-05-24] MEDS: sodium chloride 0.9% 1,000 ML 100 ML IV (10:00)
[2021-05-24] MEDS: clopidogrel 75 mg Tablet PO (10:53)
[2021-05-24 11:26] LABS: Glucose Point of Care 128 mg/dL (70-110)
--- NOTE | 2021-05-24 12:30 | PC.NURSE ---
TR Band off on right ankle No bleeding, hematoma or unusual swelling noted. Skin is warm, PD and PT are diminished. Will keep monitoring neurovascular.
[2021-05-24 16:47] LABS: Glucose Point of Care 193 mg/dL (70-110)
--- NOTE | 2021-05-24 20:38 | PC.NURSE ---
pt discharged home, left via wheelchair with , discharge instructions given, pt verbalized understanding, IV already removed by previous nurse
--- NOTE | 2021-05-27 08:57 | PC.SOCIAL ---
discharge follow up call made. spoke with , emilio. patient is doing great. no new medications were prescribed. follow up appointments made and aware.
== END 2021-05-24 20:40 | disposition home or self-care (01) ==
LOC: CSU 10:12
PROVIDERS: Admitting Provider Internal Medicine Cardiovascular Disease; PCP Emergency Medicine Emergency Medical Services; Visit Provider Internal Medicine Cardiovascular Disease
DX: I70.201 Unspecified atherosclerosis of native arteries of extremities, right leg (principal); E78.5 Hyperlipidemia, unspecified; E66.9 Obesity, unspecified; Z68.29 Body mass index [BMI] 29.0-29.9, adult; Z87.891 Personal history of nicotine dependence; Z79.82 Long term (current) use of aspirin; J44.9 Chronic obstructive pulmonary disease, unspecified; E11.22 Type 2 diabetes mellitus with diabetic chronic kidney disease; I13.0 Hypertensive heart and chronic kidney disease with heart failure and stage 1 through stage 4 chronic kidney disease, or unspecified chronic kidney disease; N18.9 Chronic kidney disease, unspecified; I50.9 Heart failure, unspecified; I25.10 Atherosclerotic heart disease of native coronary artery without angina pectoris; I25.2 Old myocardial infarction
CPT/HCPCS: 36415; 36416; 37225; 75710; 76937; 82962; C1724; C1725; C1769; C1887; C1894; G0378; J1644; J2250; J3010; J3490; J7030; Q0163; Q9967

== ENCOUNTER → 2021-06-01 14:25 | Outpatient (BNVA) | payer OTHER, SELFPAY | PROVIDERS: PCP Emergency Medicine Emergency Medical Services; Visit Provider Nurse Practitioner Family | DX: I77.9 Disorder of arteries and arterioles, unspecified (principal) | CPT/HCPCS: 80048 ==

== ENCOUNTER → 2021-11-29 13:24 | Outpatient (BNVA) | payer OTHER, SELFPAY | PROVIDERS: PCP Emergency Medicine Emergency Medical Services; Visit Provider Nurse Practitioner Family | DX: I25.10 Atherosclerotic heart disease of native coronary artery without angina pectoris (principal); I10 Essential (primary) hypertension; Z87.891 Personal history of nicotine dependence | CPT/HCPCS: 99214 ==

== ENCOUNTER 2021-12-03 09:56 | Outpatient (CLI) | payer OTHER, SELFPAY ==
--- NOTE | 2021-12-03 10:30 | CT_ITS ---
WS: [id number] CT CHEST CT-HIGH RESOLUTION, NONCONTRAST. HISTORY: Interstitial lung disease. Technique: High-resolution chest CT is performed in inspiration, expiration, supine and prone ritao justin. All CT scans at [facility] use at least one of these dose optimization techniques: automated exposure control; mA and/or kV adjustment per patient size (includes targeted exams where dose is mat ched to clinical indication); or iterative reconstruction. DLP: 2311.96 mGy.cm COMPARISON: 2020 Findings: Quality of this examination is limited by breathing artifact. Patient was unable to remain still for this examination. Hyperinflated lungs. Dependent changes and atelectasis at the lung bases. Some of the areas of atelec tasis at the lung bases improved with prone positioning. There are a few very mild linear areas of in terstitial thickening that persist. There is additional mild paraseptal emphysema. Small blebs in the periphery of the RIGHT upper lobe. In the lower lung mueller, at the lung bases, there are mild early changes of bronchiectasis. There are a few stacked cystic areas predominantly at the RIGHT lung base consistent with early but asymmetric changes of honeycombing. No air trapping. Cardiomegaly. No adenopathy identified. Atherosclerotic plaque within the aorta. Prior CABG. Scattere d calcifications in the suprarenal aorta. CT/CT chest wo con [id number] Impression: 1. Mild UIP. Early changes of the honeycombing and bronchiectasis at the lung bases, most significant at the RIGHT lung base. 2. Focal areas of atelectasis improved with prone positioning. 3. Prior CABG.
== END 2021-12-03 09:57 | disposition home or self-care (01) ==
LOC: RAD 09:57
PROVIDERS: PCP Emergency Medicine Emergency Medical Services; Visit Provider Internal Medicine Pulmonary Disease
DX: R06.02 Shortness of breath (principal); J84.9 Interstitial pulmonary disease, unspecified; J98.11 Atelectasis; Z95.1 Presence of aortocoronary bypass graft
CPT/HCPCS: 71250

== ENCOUNTER → 2022-01-12 14:59 | Outpatient (BNVA) | payer OTHER, SELFPAY | PROVIDERS: PCP Emergency Medicine Emergency Medical Services; Visit Provider Internal Medicine Cardiovascular Disease | DX: I25.10 Atherosclerotic heart disease of native coronary artery without angina pectoris (principal); I13.0 Hypertensive heart and chronic kidney disease with heart failure and stage 1 through stage 4 chronic kidney disease, or unspecified chronic kidney disease; E11.22 Type 2 diabetes mellitus with diabetic chronic kidney disease; N18.32 Chronic kidney disease, stage 3b; I50.9 Heart failure, unspecified; Z79.4 Long term (current) use of insulin; I77.9 Disorder of arteries and arterioles, unspecified; Z87.891 Personal history of nicotine dependence; Z95.1 Presence of aortocoronary bypass graft | CPT/HCPCS: 99214 ==

== ENCOUNTER → 2022-01-31 10:03 | Outpatient (BNVA) | payer OTHER, SELFPAY | PROVIDERS: PCP Emergency Medicine Emergency Medical Services; Visit Provider Internal Medicine Pulmonary Disease | DX: J44.9 Chronic obstructive pulmonary disease, unspecified (principal); J18.9 Pneumonia, unspecified organism; J98.4 Other disorders of lung; R06.02 Shortness of breath; Z09 Encounter for follow-up examination after completed treatment for conditions other than malignant neoplasm; Z87.891 Personal history of nicotine dependence; E11.8 Type 2 diabetes mellitus with unspecified complications; E78.5 Hyperlipidemia, unspecified; I10 Essential (primary) hypertension | CPT/HCPCS: 99214 ==

== ENCOUNTER → 2022-02-01 13:48 | Outpatient (BNVA) | payer OTHER, SELFPAY | PROVIDERS: PCP Emergency Medicine Emergency Medical Services; Visit Provider Internal Medicine | DX: R70.0 Elevated erythrocyte sedimentation rate (principal); M79.10 Myalgia, unspecified site; E11.9 Type 2 diabetes mellitus without complications; Z79.4 Long term (current) use of insulin; Z87.891 Personal history of nicotine dependence; M45.0 Ankylosing spondylitis of multiple sites in spine | CPT/HCPCS: 80053; 81003; 82550; 83735; 84100; 84182; 84443; 85651; 86140; 86160; 86162; 86200; 86235; 86255; 86376; 86431; 86812; 99213; 99214 ==

== ENCOUNTER 2022-03-08 07:40 | Outpatient (CLI) | payer OTHER, SELFPAY ==
--- NOTE | 2022-03-08 10:30 | PFTS_ITS ---
Date of Study:03/08/22 Date of Dictation: 03/10/2022 MECHANICS: Prebronchodilator forced vital capacity (FVC) is reduced. Prebronchodilator forced expiratory volume in one second (FEV1) is reduced FEV1/FVC is reduced. There is no postbronchodilator study. FLOW VOLUME LOOP: Sloping of expiratory limb suggestive of airflow obstruction. LUNG VOLUMES: Total lung capacity (TLC) is reduced. Residual volume ( RV) is reduced DIFFUSING CAPACITY FOR CARBON MONOXIDE: Moderately reduced 57% . INTERPRETATION: The prebronchodilator spirometry is suggestive of moderate restriction.? Postbronchodilator study not performed. Lung volumes are reduced suggestive of restrictive lung disease. Gas transfer is moderately reduced.? Constellation of findings suggestive of restrictive lung disease with gas transfer defect likely interstitial lung disease. Correlate clinically. MTDD
== END 2022-03-08 07:41 | disposition home or self-care (01) ==
LOC: RT 07:41
PROVIDERS: PCP Emergency Medicine Emergency Medical Services; Visit Provider Internal Medicine Pulmonary Disease
DX: J44.9 Chronic obstructive pulmonary disease, unspecified (principal)
CPT/HCPCS: 94010; 94618; 94726; 94729

== ENCOUNTER → 2022-03-16 13:57 | Outpatient (BNVA) | payer OTHER, SELFPAY | PROVIDERS: PCP Emergency Medicine Emergency Medical Services; Visit Provider Internal Medicine | DX: N18.32 Chronic kidney disease, stage 3b (principal); N17.9 Acute kidney failure, unspecified; R70.0 Elevated erythrocyte sedimentation rate; M79.10 Myalgia, unspecified site | CPT/HCPCS: 99214 ==

== ENCOUNTER → 2022-04-01 10:24 | Outpatient (BNVA) | payer OTHER, SELFPAY | PROVIDERS: PCP Emergency Medicine Emergency Medical Services; Visit Provider Internal Medicine Pulmonary Disease | DX: R06.02 Shortness of breath (principal); Z87.891 Personal history of nicotine dependence; J98.4 Other disorders of lung; T78.40XA Allergy, unspecified, initial encounter; D72.19 Other eosinophilia; J22 Unspecified acute lower respiratory infection; E11.8 Type 2 diabetes mellitus with unspecified complications; Z79.84 Long term (current) use of oral hypoglycemic drugs; Z79.4 Long term (current) use of insulin; I10 Essential (primary) hypertension; E78.5 Hyperlipidemia, unspecified | CPT/HCPCS: 36415; 71046; 82785; 83880; 86003; 99214 ==

== ENCOUNTER 2022-04-25 06:00 | Outpatient (RCR) | payer OTHER, SELFPAY | END 2022-05-25 23:59 | disposition home or self-care (01) | LOC: PULRHB 06:00 | PROVIDERS: PCP Emergency Medicine Emergency Medical Services; Visit Provider Internal Medicine Pulmonary Disease | DX: J44.9 Chronic obstructive pulmonary disease, unspecified (principal) | CPT/HCPCS: G0237; G0238; G0239 ==

== ENCOUNTER 2022-05-20 14:46 | Outpatient (CLI) | payer OTHER, SELFPAY ==
--- NOTE | 2022-05-20 15:00 | USCV_ITS ---
Torey Kaba Age: 71 Gender: M : 1950 Exam Date: 05/20/2022 15:04 Ordering Phys: Camilo Harris MD Technologist: CECILY [place] [facility] [place] Indication: chf, copd, cad BP: 105 / 67 HR: 73 Rhythm: Sinus Technical Quality: difficult MEASUREMENTS (Male / Female) Normal Values 2D ECHO LV Diastolic Diameter PLAX 7.3 cm 4.2 - 5.9 / 3.9 - 5.3 cm LV Systolic Diameter PLAX 5.9 cm IVS Diastolic Thickness 0.7 cm 0.6 - 1.0 / 0.6 - 0.9 cm IVS Systolic Thickness 0.9 cm LVPW Diastolic Thickness 1.6 cm 0.6 - 1.0 / 0.6 - 0.9 cm LVPW Systolic Thickness 0.8 cm LVOT Diameter 2.0 cm LV Ejection Fraction 2D Teich 39.6 % LV Ejection Fraction MOD 2C 50.2 % LV Ejection Fraction 2C AL 49.7 % LA Diameter 5.0 cm RA Width 4.2 cm RA Height 5.3 cm Aorta at Sinotubular Diameter 2.6 cm M-MODE MV E Point Septal Separation 2.2 cm DOPPLER AV Peak Velocity 196.0 cm/s LVOT Peak Velocity 66.0 cm/s AV Area Cont Eq vti 1.2 cm squared AV Area Cont Eq pk 1.1 cm squared MV Peak Velocity 125.0 cm/s MV Area PHT 4.5 cm squared Mitral E to A Ratio 1.2 MV E' Velocity 53.5 cm/s Mitral E to MV E' Ratio 11.1 Mitral E to LV E' Lateral Ratio 8.6 Mitral E to LV E' Septal Ratio 15.6 TR Peak Velocity 290.0 cm/s TR Peak Gradient 33.6 mmHg Right Atrial Pressure 8.0 mmHg Pulmonary Artery Systolic Pressu 41.6 mmHg PV Peak Velocity 115.0 cm/s FINDINGS Left Ventricle Technically difficult examination. Poor visualization. The ventricle is at least mildly enlarged. There appears to be global hypokinesis. The ejection fraction is roughly 40%. Grade 2 diastolic dysfunction. No obvious regional wall motion disturbances. Right Ventricle Normal right ventricular size and systolic function. Mild pulmonary hypertension, RVSP 41.6 mmHg. Right Atrium Mildly increased right atrial size. Left Atrium Mildly increased left atrial size. Mitral Valve Structurally normal mitral valve. Moderate mitral valve regurgitation. Aortic Valve Structurally normal trileaflet aortic valve. Mild aortic valve calcification. Mild aortic valve stenosis, mean gradient 6.8 mmHg, GABI 1.2 cm squared. Tricuspid Valve Structurally normal tricuspid valve. Mild tricuspid valve regurgitation. Pulmonic Valve Pulmonic valve not well visualized. Pericardium Normal pericardium without effusion. Aorta Normal ascending aorta dimension. IVC Inferior vena cava not visualized. CONCLUSIONS Technically difficult examination. Poor visualization. The ventricle is at least mildly enlarged. There appears to be global hypokinesis. The ejection fraction is roughly 40%. Grade 2 diastolic dysfunction. No obvious regional wall motion disturbances. Normal right ventricular size and systolic function. Mild pulmonary hypertension, RVSP 41.6 mmHg. Mildly increased right atrial size. Mildly increased left atrial size. Structurally normal mitral valve. Moderate mitral valve regurgitation. Structurally normal trileaflet aortic valve. Mild aortic valve calcification. Mild aortic valve stenosis, mean gradient 6.8 mmHg, GABI 1.[address] Manjeet Soares MD (Electronically Signed) Final Date: 20 May 2022 16:03 S
== END 2022-05-20 14:47 | disposition home or self-care (01) ==
LOC: RAD 14:47
PROVIDERS: PCP Emergency Medicine Emergency Medical Services; Visit Provider Internal Medicine Pulmonary Disease
DX: R06.02 Shortness of breath (principal); I50.9 Heart failure, unspecified; J44.9 Chronic obstructive pulmonary disease, unspecified; I25.10 Atherosclerotic heart disease of native coronary artery without angina pectoris; I27.20 Pulmonary hypertension, unspecified; I34.0 Nonrheumatic mitral (valve) insufficiency; I35.0 Nonrheumatic aortic (valve) stenosis
CPT/HCPCS: 93306

== ENCOUNTER 2022-05-26 06:00 | Outpatient (RCR) | payer OTHER, SELFPAY | END 2022-06-24 23:59 | disposition home or self-care (01) | LOC: PULRHB 06:00 | PROVIDERS: PCP Emergency Medicine Emergency Medical Services; Visit Provider Internal Medicine Pulmonary Disease | DX: J44.9 Chronic obstructive pulmonary disease, unspecified (principal) | CPT/HCPCS: G0237; G0238 ==

== ENCOUNTER 2022-06-01 14:02 | Outpatient (CLI) | payer OTHER, SELFPAY ==
[2022-06-01 15:39] LABS: Basophils # 0.1 10^3/uL (0.0-0.1); Basophils % 0.7 %; Eosinophils # 0.7 10^3/uL (0.0-0.8); Eosinophils % 5.6 %; Hematocrit 42.4 % (42.0-52.0); Hemoglobin 13.5 g/dL (11.7-16.6); Lymphocytes # 1.6 10^3/uL (0.8-4.8); Mean Corpuscular HGB Conc 31.8 g/dL (30.0-36.0); Mean Corpuscular Hemoglobin 29.5 pg (28.0-34.0); Mean Corpuscular Volume 92.6 fl (80-94); Mean Platelet Volume 10.9 fL (7.4-10.4); Monocytes # 0.8 10^3/uL (0.2-0.9); Neutrophils # 8.42 10^3/uL (1.8-7.7); Neutrophils % 72.4 %; Nucleated Red Blood Cells % 0 %; Platelet Count 297 10^3/cmm (130-400); Red Blood Count 4.58 10^6/uL (4.1-5.3); Red Cell Distribution Width 13.6 % (12.1-15.1); White Blood Count 11.6 10^3/uL (4.0-10.0)
[2022-06-01 15:45] LABS: Erythrocyte Sedimentation Rate 23 mm/hr (0-10)
[2022-06-01 16:09] LABS: Alanine Aminotransferase 13 U/L (0-41); Albumin Level 4.1 g/dL (3.5-5.2); Alkaline Phosphatase 88 U/L (40-130); Aspartate Amino Transferase 15 U/L (0-40); Blood Urea Nitrogen 24 mg/dL (8-23); C Reactive Protein 13.3 mg/L (0.0-4.9); Calcium 9.8 mg/dL (8.5-10.5); Carbon Dioxide 28 mmol/L (22-29); Chloride 96 mmol/L (98-107); Globulin 3.5 g/dL (1.3-4.6); Glomerular Filtration Rate 50.2 mL/min (90-130); Glucose 178 mg/dL (65-115); Osmolality Calculated 290 mOsm/kg (285-295); Sodium 136 mmol/L (136-145); Total Bilirubin 0.6 mg/dL (0.15-1.2); Total Protein 7.6 g/dL (6.6-8.7)
== END 2022-06-01 14:03 | disposition home or self-care (01) ==
LOC: LAB 14:07
PROVIDERS: PCP Emergency Medicine Emergency Medical Services; Visit Provider Internal Medicine
DX: M79.10 Myalgia, unspecified site (principal); R70.0 Elevated erythrocyte sedimentation rate
CPT/HCPCS: 80053; 85025; 85651; 86140

== ENCOUNTER → 2022-06-09 08:39 | Outpatient (BNVA) | payer OTHER, SELFPAY | PROVIDERS: PCP Emergency Medicine Emergency Medical Services; Visit Provider Internal Medicine Pulmonary Disease | DX: R06.02 Shortness of breath (principal); J44.9 Chronic obstructive pulmonary disease, unspecified; J98.4 Other disorders of lung; Z87.891 Personal history of nicotine dependence; T78.40XA Allergy, unspecified, initial encounter; D72.19 Other eosinophilia; R05.8 Other specified cough | CPT/HCPCS: 99214 ==

== ENCOUNTER 2022-06-13 09:46 | Outpatient (CLI) | payer OTHER, SELFPAY ==
--- NOTE | 2022-06-13 09:57 | XRR_ITS ---
PROCEDURE INFORMATION: Exam: XR Chest Exam date and time: 06/13/2022 10:06 AM Age: 72 years old Clinical indication: Shortness of breath; Prior surgery; Surgery type: Heart; Additional info: SOB TECHNIQUE: Imaging protocol: Radiologic exam of the chest. Views: 2 views. COMPARISON: CR XR chest 2V* [id number] 04/01/2022 12:52 PM FINDINGS: Lungs: Patchy left basilar opacities likely reflect atelectasis, similar to 04/01/2022. Pleural spaces: Similar small left pleural effusion and/or pleural thickening. No pneumothorax. Heart/Mediastinum: Changes of prior CABG. Bones/joints: Unremarkable. XR/XR chest 2V* [id number] IMPRESSION: Similar small left pleural effusion and/or scarring with adjacent atelectasis. No new acute findings.
== END 2022-06-13 09:47 | disposition home or self-care (01) ==
LOC: RAD 09:49
PROVIDERS: PCP Emergency Medicine Emergency Medical Services; Visit Provider Internal Medicine Pulmonary Disease
DX: M79.10 Myalgia, unspecified site (principal); R70.0 Elevated erythrocyte sedimentation rate; N18.32 Chronic kidney disease, stage 3b; R06.02 Shortness of breath
CPT/HCPCS: 71046; 99213; 99214

== ENCOUNTER 2022-06-25 06:00 | Outpatient (RCR) | payer OTHER, SELFPAY | END 2022-07-25 23:59 | disposition home or self-care (01) | LOC: PULRHB 06:00 | PROVIDERS: PCP Emergency Medicine Emergency Medical Services; Visit Provider Internal Medicine Pulmonary Disease | DX: J44.9 Chronic obstructive pulmonary disease, unspecified (principal) | CPT/HCPCS: G0237; G0238; G0239 ==

== ENCOUNTER 2022-06-30 12:42 | Outpatient (CLI) | payer OTHER, SELFPAY ==
--- NOTE | 2022-06-30 13:08 | PFTS_ITS ---
Date of Study:06/30/22 Date of Dictation: MECHANICS: Forced vital capacity (FVC) is reduced. Forced expiratory volume in one second (FEV1) is reduced. FEV1/FVC is normal. FLOW VOLUME LOOP: Narrow with mild scooping. LUNG VOLUMES: Total lung capacity (TLC) is reduced. Residual volume (RV) is reduced. DIFFUSING CAPACITY FOR CARBON MONOXIDE: Moderately reduced. INTERPRETATION: The postbronchodilator spirometry is consistent with moderate restriction. There is some postbronchodilator response. Lung volumes are consistent with moderate restriction. Gas exchange (DLCO) is moderately reduced. MTDD
== END 2022-06-30 12:43 | disposition home or self-care (01) ==
LOC: RT 12:43
PROVIDERS: PCP Emergency Medicine Emergency Medical Services; Visit Provider Internal Medicine Pulmonary Disease
DX: J44.9 Chronic obstructive pulmonary disease, unspecified (principal)
CPT/HCPCS: 94060; 94618; 94726; 94729; J7611

== ENCOUNTER → 2022-07-05 09:40 | Outpatient (BNVA) | payer OTHER, SELFPAY | PROVIDERS: PCP Emergency Medicine Emergency Medical Services; Visit Provider Internal Medicine Cardiovascular Disease | DX: I25.10 Atherosclerotic heart disease of native coronary artery without angina pectoris (principal); Z95.1 Presence of aortocoronary bypass graft; Z95.5 Presence of coronary angioplasty implant and graft; Z87.891 Personal history of nicotine dependence; I13.0 Hypertensive heart and chronic kidney disease with heart failure and stage 1 through stage 4 chronic kidney disease, or unspecified chronic kidney disease; N18.32 Chronic kidney disease, stage 3b; E11.22 Type 2 diabetes mellitus with diabetic chronic kidney disease; I50.9 Heart failure, unspecified; Z79.4 Long term (current) use of insulin; Z79.84 Long term (current) use of oral hypoglycemic drugs; I77.9 Disorder of arteries and arterioles, unspecified; E11.42 Type 2 diabetes mellitus with diabetic polyneuropathy; E11.621 Type 2 diabetes mellitus with foot ulcer; L97.512 Non-pressure chronic ulcer of other part of right foot with fat layer exposed; L84 Corns and callosities; M20.41 Other hammer toe(s) (acquired), right foot; L60.3 Nail dystrophy | CPT/HCPCS: 11042; 11721; 99204; 99214 ==

== ENCOUNTER 2022-07-18 06:57 | Outpatient (CLI) | payer OTHER, SELFPAY ==
--- NOTE | 2022-07-18 | ECG_ITS ---
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 Interpretive Statements NAME OF STUDY: LEXISCAN SESTAMIBI STRESS TEST INDICATION: Dyspnea on Exertion RESULTS TO DR ARITA PROCEDURE: At the baseline, the EKG revealed normal sinus rhythm with a right bundle branch block pattern. Diffuse nonspecific ST changes. Heavy Baseline artifact.. The baseline heart was 80 bpm with a blood pressue of 133/69 mm of Hg Lexiscan was infused over a period of 20 seconds. A total of 0.4 milligrams of Lexiscan was infused. The stress phase was continued for a total of 5 minutes. Heart rate at the end of the stress phase was 87 bpm with a blood pressure 121/70 mm of Hg. The EKG at the peak infusion revealed more prominent ST depressions in lead V4 to V6, II, III and aVF.. Sestamibi was injected 20 seconds after the Lexiscan infusion. Heart rate at the end of the recovery phase was 86 bpm with a blood pressure of 125/66 mm of Hg. CONCLUSION: 1. Nonspecific EKG changes with the LexiScan infusion 2. No LexiScan induced chest pain or cardiac arrhythmia 3. Normal blood pressure and heart rate response 4. Sestamibi/sestamibi perfusion scan pending; see separate report. Electronically Signed On 07-19-2022 12:40:13 CDT by Cholo Kelsey M.D. [email or web address]
[2022-07-18 07:19] VITALS: BMI 30.2
--- NOTE | 2022-07-18 07:21 | NMCV_ITS ---
NM eric perf SPECT r/s* [id number] Torey Kaba Age: 72 Gender: M : 1950 Exam Date: 07/18/2022 08:35 Ordering Phys: Camilo Harris MD Technologist: CHRISTOS Trotter Exam Location: [facility] Indications: SHORTNESS OF BREATH STRESS TEST Please see separate stress test report in [facility] for full findings IMAGE PROTOCOL Rest/Stress 1 Lexiscan Day Radiopharmaceutical Dose (mCi) Administration Site Administered by Rest: Tc-99m 11.0 IV CHRISTOS Trotter Sestamibi Stress:Tc-99m 32.8 IV CHRISTOS Wang Sestamibi Rest: 18-Jul-2022 60 Discovery 630 Stress: 18-Jul-2022 30 Discovery 630 0.4mg Lexiscan. Images obtained in supine and prone position. SPECT RESULTS Technical Quality: Excellent Raw Data Analysis: Normal Image Corrections: No attenuation or motion correction applied Summed Stress Score: 33 Summed Rest Score: 22 Summed Difference Score: 11 PERFUSION FINDINGS Moderate to large area of moderate to severely decreased tracer uptake was noted in the basal and mid inferolateral, anterolateral, anterior, mid and apical inferior, apical lateral, apical anterior and mid anteroseptal regions. Slight reversibility was noted in all these regions of rest. Increased tracer uptake also was noted in the right ventricular free wall.. FUNCTIONAL RESULTS (calculated via Gated SPECT) Stress Image LV EF (%): 29 Stress EDV (mL):279 TID: 1.2 Stress ESV (mL):197 FUNCTIONAL FINDINGS: 1. Moderate to large areas of persistent decreased tracer uptake in the anterior, anterolateral, inferolateral and apical regions with some reversibility, suggesting extensive myocardial scarring in the distribution of all the 3 coronary arteries with extensive areas of lilian-infarct ischemia. 2. Markedly diminished LV ejection fraction 29%. 3. Segmental wall motion analysis revealing diffuse hypokinesia of the left ventricle. 4. LV cavity appears to be markedly dilated with an end systolic volume of 197 ml. 5. The transient ischemic dilatation ratio was found to be elevated to 1.2. The above features are suggestive of severe three-vessel coronary artery disease IMPRESSIONS Dr Cholo Kelsey MD [facility] (Electronically Signed) Final Date: 18 July 2022 13:21 S
[2022-07-18] MEDS: regadenoson 0.4 Mg/5 ml Syringe IVP (09:30)
[2022-07-18 09:42] VITALS: BP 129/85; PULSE 86
== END 2022-07-18 06:58 | disposition home or self-care (01) ==
LOC: CDL 06:59
PROVIDERS: PCP Emergency Medicine Emergency Medical Services; Visit Provider Internal Medicine Pulmonary Disease
DX: R06.00 Dyspnea, unspecified (principal)
CPT/HCPCS: 78452; 93017; A9500; J2785

== ENCOUNTER 2022-07-25 10:09 | Outpatient (CLI) | payer OTHER, SELFPAY ==
[2022-07-25 10:40] LABS: Basophils # 0.1 10^3/uL (0.0-0.1); Basophils % 1.5 %; Eosinophils # 0.5 10^3/uL (0.0-0.8); Eosinophils % 5.5 %; Hematocrit 43.7 % (42.0-52.0); Hemoglobin 14.2 g/dL (11.7-16.6); Lymphocytes # 1.1 10^3/uL (0.8-4.8); Lymphocytes % 11.8 %; Mean Corpuscular HGB Conc 32.5 g/dL (30.0-36.0); Mean Corpuscular Hemoglobin 29.2 pg (28.0-34.0); Mean Corpuscular Volume 89.9 fl (80-94); Mean Platelet Volume 10.1 fL (7.4-10.4); Monocytes # 0.7 10^3/uL (0.2-0.9); Monocytes % 7.4 %; Neutrophils # 6.75 10^3/uL (1.8-7.7); Neutrophils % 73.3 %; Nucleated Red Blood Cells % 0 %; Platelet Count 274 10^3/cmm (130-400); Red Blood Count 4.86 10^6/uL (4.1-5.3); Red Cell Distribution Width 15.3 % (12.1-15.1); White Blood Count 9.2 10^3/uL (4.0-10.0)
[2022-07-25 10:52] LABS: Prothrombin Time (Patient) 13.5 Seconds (12.0-15.1)
[2022-07-25 10:59] LABS: Anion Gap 16.4 (5-19); Blood Urea Nitrogen 25 mg/dL (8-23); Calcium 9.7 mg/dL (8.5-10.5); Carbon Dioxide 27 mmol/L (22-29); Chloride 100 mmol/L (98-107); Glomerular Filtration Rate 50.1 mL/min (90-130); Glucose 150 mg/dL (65-115); Osmolality Calculated 295 mOsm/kg (285-295); Potassium 4.4 mmol/L (3.5-5.1); Sodium 139 mmol/L (136-145)
== END 2022-07-25 10:10 | disposition home or self-care (01) ==
PROVIDERS: PCP Emergency Medicine Emergency Medical Services; Visit Provider Internal Medicine Cardiovascular Disease
DX: Z95.1 Presence of aortocoronary bypass graft (principal); I25.10 Atherosclerotic heart disease of native coronary artery without angina pectoris; I50.1 Left ventricular failure, unspecified; N18.32 Chronic kidney disease, stage 3b; D64.9 Anemia, unspecified
CPT/HCPCS: 36415; 80048; 85025; 85610; 86850; 86900

== ENCOUNTER 2022-07-26 06:00 | Outpatient (RCR) | payer OTHER, SELFPAY | END 2022-08-24 23:59 | disposition home or self-care (01) | LOC: PULRHB 06:00 | PROVIDERS: PCP Emergency Medicine Emergency Medical Services; Visit Provider Internal Medicine Pulmonary Disease | DX: J44.9 Chronic obstructive pulmonary disease, unspecified (principal) | CPT/HCPCS: G0239 ==

== ENCOUNTER 2022-07-27 11:32 | Observation (INO) | payer OTHER, SELFPAY ==
[2022-07-27] VITALS (38 sets, daily range): BP systolic 129–181; BP diastolic 75–110; PULSE 75–122; RESP 16–90; TEMP 36.7–36.9; O2SAT 84–96; BMI 30.2
--- NOTE | 2022-07-27 07:30 | XACV_ITS ---
Exam Room: 2 Ht: 180 cm Wt: 98 kg BSA: 2.24 m2 Gender: Male : 1950 Any Known Allergies: Other Exam Priority: Routine Procedure(s): Procedure Description: Diagnostic procedure Procedure Description: Left Heart Catheterization Procedure Description: Venous Graft Catheterization Procedure Description: CONROY Graft Catheterization Procedure Description: Coronary Angiography Diagnostic Cath Status: Elective Diagnostic Findings * The left main is a medium caliber vessel with no significant stenotic lesions. Minimal intimal irregularities were noted in the vessel. * The left anterior descending artery is a medium caliber vessel which he was found to have * moderate diffuse disease proximally. * Right after the first septal lining parts sewer ,the artery appears to be totally occluded. The first septal lining parts sewer is a small caliber vessel which he was found to have a high-grade lesion proximally.. * The left circumflex artery is a medium caliber vessel which appears to give off a high obtuse marginal branch. The ostium of this vessel was found to have around 50% stenosis. The mid and distal circumflex artery was found to have mild to moderate diffuse disease. The second obtuse marginal artery was found to have severe diffuse disease. This is a small caliber vessel. * The right coronary artery is a medium caliber dominant vessel which was found to have severe diffuse disease in the mid and distal segment. Very artery appears to be subtotally occluded and couple of places. * The rest of his risk to PDA branch was found to be widely patent. The posterior descending artery was found to have moderate diffuse disease in the proximal mid segment. * The saphenous venous grafts to the diagonal and to the obtuse marginal arteries were found to be totally occluded proximally at the anastomotic sites. * The CONROY to the LAD also was found to be widely patent. The distal LAD was found to be a relatively small caliber vessel with diffuse disease. Conclusions 1. 72-year-old white male with a history of atherosclerotic heart diseas, status post carotid bypass in 2004, history of hypertension, type 2 diabetes, dyslipidemia and chronic kidney disease is presenting with increasing shortness of breath and fatigue. Echocardiogram revealed the LV ejection fraction around 40%, a significant drop from the previous echocardiogram a year ago, when the LV ejection fraction was within normal limits. Myocardial perfusion imaging revealing large areas of fixed defects with small areas of reversible defects in the distribution of all the 3 coronary arteries. In view of the patient's symptoms and the abnormal objective findings, in order to further evaluate the coronary status as well as the graft status, a repeat cardiac catheterization was recommended. Patient underwent left heart catheterization with a left and right coronary angiogram and graft angiogram today. The findings are as follows. 2. No significant left main disease. Moderate diffuse disease in the proximal LAD with total occlusion, right after the first septal lining parts sewer. Mild to moderate diffuse disease in circumflex artery. A small caliber second obtuse marginal artery was found to have severe diffuse disease. Severe diffuse disease of the right coronary artery with total occlusion of the PDA branch, at the ostium. Patent CONROY to LAD and a venous graft to the PDA. Total occlusion of the venous grafts to the obtuse marginal and diagonal arteries, at the proximal anastomotic sites. Features of severe left ventricular diastolic function with an LVEDP of 34 mmHg. 3. I reviewed and discussed the cardiac catheterization data with the Dr. Soares. Based on the above angiographic findings, optimizing the medical treatment was thought to be the appropriate plan of action. Diagnostic RX Recommendation: medical therapy and/or counseling LV EDP: 34 mmHg Left Ventriculography Findings: * The LV gram was not performed because of the chronic kidney disease. LVEDP was 34 mmHg. Pressures Phase:Rest AO : 158 / 72 ( 104 ) @ 8:58:00 AM 149 / 59 ( 95 ) @ 9:17:00 AM 146 / 61 ( 94 ) @ 9:17:00 AM LV : 149 / 4 / 34 @ 9:17:00 AM 147 / 3 / 32 @ 9:17:00 AM Valves Phase:DefaultPhase AV : 0.0 @ 9:28:40 AM AV Mean Gradient: 0.0 @ 9:28:40 AM Clinical Evaluation EBL: 5mL-10mL Procedural Details Procedure Consent Obtained. Pre-Procedure Time Out. Identified patient by full name and date of as verbalized by the patient/guarantor. Does the consent match the physician's order: Yes. Accurate & Complete Informed Consent: Yes. Inpatient/Outpatient History & Physical on Chart: Yes. If H&P is completed, is and addenduem needed: No; If yes, is the addendum complete: No. Visualize and Verify Site with Patient/Guarantor: N/A. Relevant Radiology Images available: Yes. The risks, benefits, and alternatives of sedation and/or procedure were discussed by physician. The patient agrees to continue. Procedure started. [facility] Clinical Fraility Score: 3: Managing Well. Field Service Rep Indications: Cardiomyopathy. Field Service Rep Indications: abnormal stress test. Chest Pain Symptom Assessment: Typical Angina Symptoms. Correct patient, site and procedure confirmed by cath team. Current diagnosis: Chest Pain. PERRLA. Strong, equal hand chief of pediatric urology bilaterally. Lungs clear x 5 lobes. IV Site on Arrival: 20 gauge in the right anticubital. IV Fluids: 0.9% NaCl at KVO. 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 Pre Procedural Pulses: bilateral radial was 3+. Pre Procedural Pulses: bilateral dorsalis pedis was Doppled. Pre Procedural Pulses: bilateral posterior tibial was Doppled. Oxygen started at 2liters/min via nasal canula. right groin was prepped with chloroprep then draped in the usual sterile fashion. Physician notified. Baseline sample Acquired. HR: 83 BPM. Physician arrived. Physician scrubbed in. Immediate Pre-Procedure Time Out. Correct Patient: Yes; Correct Procedure: Yes; Correct Site: Yes; Correct Patient Position: Yes; Correct Supplies: Yes; Dried Flammable Prep: Yes; Blood Products Available: N/A;. Lidocaine 1% infiltrated to the right groin. Arterial access obtained with micropuncture set. A 5 stateless JL4 catheter in over wire. Multiple views taken of left coronary artery. Catheter removed over the standard wire. A 5 stateless JR4 catheter in over wire. Multiple views taken of right coronary artery. SVG to Diaganol occluded. SVG to OM occluded. SVG's to RCA visualized and patent. catheter advanced over standard wire. CONROY to LAD visualized. Catheter removed over the standard wire. Physician review of cine films. Side port of sheath attached to Normal Saline flush at KVO to maintain patency. A 5 stateless Angled Pig catheter in over wire. standard wire out. EDP Sample taken: LV 149/4,34; HR: 85 BPM; SpO2: 90%. Pullback taken: LV 147/3,32; AO 149/59(95); Mean: 0mmHg, Peak to Peak: 0mmHg, SEP: 22sec/min; HR: 89 BPM; SpO2: 95%. Catheter removed over the standard wire. Physician scrubbed out. Sheath(s) sutured into position with 2-0 silk and sterile 4x4's and Op-site applied over the site. No oozing or signs and symptoms of hematoma noted. Arterial sheath flushed and connected to tranducer and pressure bag with heparinized saline. Post Procedure: Pulses reassessed and unchanged. PERRLA. Strong, equal hand chief of pediatric urology bilaterally. No VTE prophylaxis required. Medication's Wasted: Lidocaine 1% = 2 mL. Medication's Wasted: fentanyl = 50 mcg. Medication's Wasted: Heparin = 2500 units. Total IV fluids: 278 mL. Complications: none. Post-op diagnosis: severe 3 vessel disease and occulded grafts. Estimated blood loss: 5mL-10mL. Responsiveness - Normal response to verbal stimuli; alert and oriented, PERRLA. Airway - Unaffected, no intervention required; spontaneous ventilation. Circulation: W/N/L, pulses unchanged. Nausea/Vomiting: No. Procedure completed. Patient transferred by bed to [facility]. Vital chart was stopped. Access Site Site: Right Femoral artery Sheath Size: 5 Fr Hemostasis Success: Unsuccessful Procedure Medications Start: 8:43 AM Stop: 8:43 AM Medication: Versed Amount: 1 mg Start: 8:43 AM Stop: 8:43 AM Medication: Fentanyl Amount: 50 mcg Start: 8:43 AM Stop: 8:43 AM Medication: 0.9% Saline Amount: 250 ml Route: I.V. bolus Start: 8:54 AM Stop: 8:54 AM Medication: Versed Amount: 1 mg Start: 8:56 AM Stop: 8:56 AM Medication: Heparin Amount: 1500 units Route: I.V. I, the attending physician, have reviewed and verified all procedure medications. Yes, all medications given per verbal order History/Risk Factors Hypertension: Yes Dyslipidemia: Yes Peripheral Arterial Disease (PAD): Yes Myocardial Infarction (FL): No Obesity: No Renal Disease: No Tobacco Use: Former Prior Interventions PCI: No CABG: Yes Valve Surgery: No Report Signatures Finalized by Dr Cholo Kelsey MD [facility] on 07/27/2022 03:54 PM
[2022-07-27] MEDS: diphenhydrAMINE 50 mg Capsule PO (07:42)
--- NOTE | 2022-07-27 08:23 | W.PM.OPSUD ---
Surgery/Procedure H&P Update DATE OF PROCEDURE: July 27, 2022 DATE H&P PERFORMED: 07/05/22 H&P UPDATE INFORMATION: I have reviewed H&P completed within last 30 days, I have examined patient prior to procedure and No changes to prior documentation PREOP DIAGNOSIS: ASHD PRIMARY INDICATION FOR PROCEDURE: Chest pain with abnormal Myocardial perfusion imaging. Drop in LV ejection fraction from 55 to 40% PLANNED PROCEDURE: Operation Date: 07/27/22 08:30 Proposed Procedures p Left Cardiac Catheterization 10693,I50.1,I25.10,R94.39,I25.9(Left) - Cholo Kelsey MD PATIENT REASSESSED PRIOR TO SEDATION, WITH NO CHANGE NOTED: Yes PHYSICAL EXAM: alert, oriented x 3, clear to auscultation bilaterally and regular rate & rhythm AIRWAY EVAL/ANESTHESIA PLAN: normal airway, see other exam findings, ASA III, Monitored Anesthesia, Local Anesthesia, Risks, benefits & alternatives of sedation and/or procedure discussed and Patient agrees to continue as planned
[2022-07-27] MEDS: sodium chloride 0.9% 1,000 ML 75 ML IV (11:13)
[2022-07-27] MEDS: clopidogrel 75 mg Tablet PO (11:59)
[2022-07-27] MEDS: ascorbic acid 500 mg Tablet PO (11:59)
[2022-07-27] MEDS: ferrous gluconate 324 mg Tablet PO (12:05)
[2022-07-27] MEDS: magnesium oxide 400 mg tablet PO (12:06)
[2022-07-27 12:21] LABS: Glucose Point of Care 147 mg/dL (70-110)
[2022-07-27] MEDS: cyanocobalamin 1,000 mcg Tablet 1 MCG PO (13:20)
[2022-07-27] MEDS: hyDRALAzine 25 mg Tablet PO ×2 (15:49→20:09)
[2022-07-27] MEDS: cetirizine 10 mg Tablet PO (18:18)
[2022-07-27] MEDS: doxycycline 100 mg Tablet PO (18:18)
[2022-07-27] MEDS: carvedilol 25 mg Tablet PO (18:18)
[2022-07-27] MEDS: FUROsemide 40 mg Tablet PO (18:19)
[2022-07-27] MEDS: sulfaSALAzine 500 mg Tablet 250 MG PO (18:23)
[2022-07-27 18:29] LABS: Glucose Point of Care 256 mg/dL (70-110)
[2022-07-27] MEDS: insulin glargine 100 units/1 mL 38 UNIT SUBCUT (19:18)
--- NOTE | 2022-07-27 19:35 | PC.NURSE ---
Report given to Jse Allen RN
[2022-07-27] MEDS: guaiFENesin 600 mg Tablet PO (20:15)
[2022-07-28 00:25] VITALS: BP 147/72; PULSE 82; RESP 18; TEMP 36.6; O2SAT 92
[2022-07-28 03:24] LABS: Blood Urea Nitrogen 23 mg/dL (8-23); Calcium 9.3 mg/dL (8.5-10.5); Carbon Dioxide 23 mmol/L (22-29); Chloride 102 mmol/L (98-107); Glomerular Filtration Rate 66.2 mL/min (90-130); Glucose 140 mg/dL (65-115); Osmolality Calculated 290 mOsm/kg (285-295); Sodium 137 mmol/L (136-145)
[2022-07-28 04:00] VITALS: BP 147/72; PULSE 82; RESP 14; TEMP 36.6; O2SAT 88
[2022-07-28 05:37] VITALS: PULSE 84
[2022-07-28] MEDS: aspirin 81 mg EC Tablet PO (05:55)
[2022-07-28] MEDS: insulin glargine 100 units/1 mL 38 UNIT SUBCUT (05:56)
[2022-07-28 06:08] LABS: Glucose Point of Care 137 mg/dL (70-110)
[2022-07-28 07:44] VITALS: BP 139/86; PULSE 89; RESP 18; TEMP 36.6; O2SAT 93
[2022-07-28] MEDS: ascorbic acid 500 mg Tablet PO (08:45)
[2022-07-28] MEDS: amlodipine 5 mg Tablet 10 MG PO (08:45)
[2022-07-28] MEDS: FUROsemide 40 mg Tablet PO (08:46)
[2022-07-28] MEDS: atorvastatin 40 mg Tablet 20 MG PO (08:46)
[2022-07-28] MEDS: hyDRALAzine 25 mg Tablet PO (08:46)
[2022-07-28] MEDS: cyanocobalamin 1,000 mcg Tablet 1 MCG PO (08:46)
[2022-07-28] MEDS: ferrous gluconate 324 mg Tablet PO (08:46)
[2022-07-28] MEDS: doxycycline 100 mg Tablet PO (08:46)
[2022-07-28] MEDS: clopidogrel 75 mg Tablet PO (08:46)
[2022-07-28] MEDS: isosorbide mononitrate ER 30 mg Tablet PO (08:46)
[2022-07-28] MEDS: carvedilol 25 mg Tablet PO (08:46)
[2022-07-28 08:47] VITALS: BP 139/86
[2022-07-28] MEDS: magnesium oxide 400 mg tablet PO (08:47)
[2022-07-28] MEDS: losartan 50 mg Tablet PO (08:47)
[2022-07-28] MEDS: levoFLOXacin 500 mg Tablet PO (08:47)
[2022-07-28] MEDS: sulfaSALAzine 500 mg Tablet 250 MG PO (08:47)
--- NOTE | 2022-07-28 09:48 | PM.PN ---
Subjective Subjective: The is a final progress note This patient is admitted to the hospital following a cardiac catheterization for IV hydration and close monitoring. This patient is known to have chronic kidney disease, atherosclerotic heart diseas, cardiomyopathy, high blood pressure, type 2 diabetes and dyslipidemia. He underwent a cardiac catheterization yesterday and was found to have severe three-vessel coronary artery disease with occlusion of 2 of the bypass grafts. The CONROY to the LAD and the venous graft to the PDA were found to be patent. Based on the angiogram findings, it was opted to treat him medically. Patient is remaining stable. He has no specific symptoms. Tolerating the isosorbide mononitrate so far well. Medications: Medication Review Details: Current Medications Acetaminophen (Acetaminophen 325 Mg Tablet) 650 mg PO Q6H PRN PRN Reason: MILD PAIN Al Hydrox/Mg Hydrox/Simethicone (Zorv-Gkf-Gykrlmkij-Ghanshyam 30 Ml Udc) 30 ml PO Q15M PRN PRN Reason: INDIGESTION Albuterol Sulfate (Albuterol 8 Gm Mdi) 2 puff INHALATION Q6H PRN PRN Reason: Shortness Of Breath Or Wheezing Amlodipine Besylate (Amlodipine 5 Mg Tablet) 10 mg PO DAILY [facility] Last Admin: 07/28/22 08:45 Dose: 10 mg Ascorbic Acid (Ascorbic Acid 500 Mg Tablet) 500 mg PO DAILY [facility] Last Admin: 07/28/22 08:45 Dose: 500 mg Aspirin (Aspirin 81 Mg Ec Tablet) 81 mg PO DAILY@0700 [facility] Last Admin: 07/28/22 05:55 Dose: 81 mg Atorvastatin Calcium (Atorvastatin 40 Mg Tablet) 20 mg PO DAILY [facility] Last Admin: 07/28/22 08:46 Dose: 20 mg Atropine Sulfate (Atropine 1 Mg/Ml Sdv 1 Ml) 0.5 mg IVP PRN PRN PRN Reason: Symptomatic bradycardia Carvedilol (Carvedilol 25 Mg Tablet) 25 mg PO BID [facility] Last Admin: 07/28/22 08:46 Dose: 25 mg Cetirizine HCl (Cetirizine 10 Mg Tablet) 10 mg PO DAILY@1800 [facility] Last Admin: 07/27/22 18:18 Dose: 10 mg Clopidogrel Bisulfate (Clopidogrel 75 Mg Tablet) 75 mg PO DAILY [facility] Last Admin: 07/28/22 08:46 Dose: 75 mg Cyanocobalamin (Cyanocobalamin 1,000 Mcg Tablet) 1 mcg PO DAILY [facility] Last Admin: 07/28/22 08:46 Dose: 1 mcg Diclofenac Sodium (Diclofenac 1% Topical Gel 100 Gm) 2 applic TOPICAL QID [facility] Last Admin: 07/28/22 08:48 Dose: Not Given Doxycycline Monohydrate (Doxycycline 100 Mg Tablet) 100 mg PO BID [facility] Last Admin: 07/28/22 08:46 Dose: 100 mg Ferrous Gluconate (Ferrous Gluconate 324 Mg Tablet) 324 mg PO DAILY [facility] Last Admin: 07/28/22 08:46 Dose: 324 mg Fluticasone Propionate (Fluticasone Nasal [place] 16gm Btl) 2 spray INTRANASAL DAILY@0700 PRN PRN Reason: Congestion Furosemide (Furosemide 40 Mg Tablet) 40 mg PO BID [facility] Last Admin: 07/28/22 08:46 Dose: 40 mg Guaifenesin (Guaifenesin 600 Mg Tablet) 600 mg PO Q12H PRN PRN Reason: congestion Last Admin: 07/27/22 20:15 Dose: 600 mg Hydralazine HCl (Hydralazine 25 Mg Tablet) 25 mg PO TID [facility] Last Admin: 07/28/22 08:46 Dose: 25 mg Insulin Glargine (Insulin Glargine 100 Units/1 Ml) 38 unit SUBCUT BID@0700,1800 [facility] Last Admin: 07/28/22 05:56 Dose: 38 unit Insulin Human Lispro (Insulin Lispro 100 Unit/1 Ml) 5 unit SUBCUT DAILY PRN PRN Reason: High Blood Sugar Isosorbide Mononitrate (Isosorbide Mononitrate Er 30 Mg Tablet) 30 mg PO DAILY [facility] Last Admin: 07/28/22 08:46 Dose: 30 mg Levofloxacin (Levofloxacin 500 Mg Tablet) 500 mg PO DAILY [facility]; Protocol Last Admin: 07/28/22 08:47 Dose: 500 mg Losartan Potassium (Losartan 50 Mg Tablet) 50 mg PO DAILY [facility] Last Admin: 07/28/22 08:47 Dose: 50 mg Magnesium Hydroxide (Magnesium Hydroxide 30 Ml Udc) 30 ml PO DAILY PRN PRN Reason: CONSTIPATION Magnesium Oxide (Magnesium Oxide 400 Mg Tablet) 400 mg PO DAILY [facility] Last Admin: 07/28/22 08:47 Dose: 400 mg Methocarbamol (Methocarbamol 750 Mg Tablet) 750 mg PO Q12H PRN PRN Reason: Muscle Pain Naloxone HCl (Naloxone 0.4 Mg/Ml Sdv) 0.1 mg IVP Q2M PRN PRN Reason: RESPIRATORY RATE < 8/MIN Nitroglycerin (Nitroglycerin 0.4 Mg Sublingual Tablet) 0.4 mg SUBLINGUAL Q5M PRN PRN Reason: CHEST PAIN Non-Formulary Medication (Dextromethorphan-Guaifenesin [Coricidin Hbp Chest Ayaan-Cough]) 1 tab-cap PO Q8H PRN PRN Reason: Cold Symptoms Non-Formulary Medication (Vitamin E) 200 unit PO DAILY [facility] Last Admin: 07/28/22 08:47 Dose: Not Given Fluticasone/Salmeterol (Fluticasone-Salmeterol 250-50 Diskus) 1 puff INHALATION BID.RESPIRATORY [facility] Last Admin: 07/27/22 20:39 Dose: 1 puff Sulfasalazine (Sulfasalazine 500 Mg Tablet) 250 mg PO BID [facility] Last Admin: 07/28/22 08:47 Dose: 250 mg Vitals/I&O/Wt Last Vital Signs Temp 97.8 F 07/28/22 07:44 Pulse 89 07/28/22 07:44 Resp 18 07/28/22 07:44 BP 139/86 07/28/22 08:47 Pulse Ox 93 07/28/22 07:44 O2 Del Method 07/28/22 07:44 O2 Flow Rate 3 07/27/22 19:43 07/27/22 07/28/22 07/28/22 22:59 06:59 14:59 Intake Total 1600 / 1840 600 / 2440 120 / 120 Output Total 400 / 400 600 / 1000 Balance 1200 / 1440 0 / 1440 120 / 120 Weight last 48 hrs Weight 217 lb Weight 217 lb Weight 217 lb Physical Exam Const: OTHER: GENERAL: The patient is alert and oriented times three. Not in any acute distress. HEENT: No significant pallor, icterus or lymphadenopathy.Oral cavity: There are no mucous membrane lesions. NECK: Trachea appears to be central. No masses noted. No JVD or thyromegaly appreciated. RESPIRATORY: Chest is symmetrical. No intercostals muscle retraction or any accessory muscle activation. There is no chest wall tenderness. Breath sounds are heard bilaterally. No rales or rhonchi heard. No evidence of any consolidation. BREASTS: Deferred. HEART: The heart sounds are normal. No S3 or S4. Short systolic murmur in the left sternal border. No diastolic murmurs. No pericardial rub ABDOMEN: No vessel pulsations or distention. No tenderness. No organomegaly appreciated. Bowel sounds are normally heard. : Deferred. RECTAL: Deferred. LYMPHATIC: No lymphadenopathy noted in the neck. EXTREMITIES: The right groin has no hematoma bleeding. MUSCULOSKELETAL: No acute joint deformities or swelling SKIN: There are no significant rashes or ecchymosis NEUROPSYCHIATRIC: The patient is alert and oriented x3. Appears to be in a good mood. No tremors or rigidity noted. Data : 07/28/22 02:43 Other Labs: Laboratory Last Values Sodium 137 mmol/L (136-145) 07/28/22 02:43 Potassium 4.0 mmol/L (3.5-5.1) 07/28/22 02:43 Chloride 102 mmol/L (98-107) 07/28/22 02:43 Carbon Dioxide 23 mmol/L (22-29) 07/28/22 02:43 Anion Gap 16.0 (5-19) 07/28/22 02:43 BUN 23 mg/dL (8-23) 07/28/22 02:43 Creatinine 1.1 mg/dL (0.7-1.2) 07/28/22 02:43 GFR Calculation 66.2 mL/min (90-130) L 07/28/22 02:43 Glucose 140 mg/dL (65-115) H 07/28/22 02:43 POC Glucose 137 mg/dL (70-110) H 07/28/22 05:57 Calculated Osmolality 290 mOsm/kg (285-295) 07/28/22 02:43 Calcium 9.3 mg/dL (8.5-10.5) 07/28/22 02:43 A&P Assessment and plan (1) Atherosclerosis of coronary artery of [place] heart without angina pectoris: Was found to have severe three-vessel coronary artery disease. Patient with angiogram, there were no revascularizable lesions. No similar previous studies are available for comparison opted to optimize the medical treatment. He was started on isosorbide mononitrate 30 mg p.o. daily. So far he is doing okay with no specific complaints. May continue on the current medications. Qualifiers: Coronary Disease-Associated Artery/Lesion type: [place] artery Qualified Code(s): I25.10 - Atherosclerotic heart disease of [place] coronary artery without angina pectoris (2) CKD (chronic kidney disease): Patient was carefully hydrated before and after the procedure. The creatinine this morning was found to be 1.1. Qualifiers: Chronic kidney disease stage: stage 3 (moderate) Chronic kidney disease stage 3 subtype: stage 3b (GFR 30-44) Qualified Code(s): N18.32 - Chronic kidney disease, stage 3b (3) Hypertension: The blood pressure seems to be under control. The latest blood pressure is 139/86. Qualifiers: Hypertension type: essential hypertension Qualified Code(s): I10 - Essential (primary) hypertension (4) Peripheral arterial occlusive disease: Currently asymptomatic. May continue on the current medications. (5) Hx of CABG: Of the four bypass grafts are occluded. Plan BMP this morning revealed a BUN of 23 with a creatinine of 1.1. Patient has been ambulating on telemetry with no specific complaints. Since he is remaining stable with no new symptoms, he is being discharged home today. 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
[2022-07-28 10:16] VITALS: BP 139/86
--- NOTE | 2022-07-28 10:49 | PC.NURSE ---
discharge instructions given and explained.pt and spouse verb understanding of instructions.discharged via w/c to exit.spouse to drive pt home
== END 2022-07-28 10:50 | disposition home or self-care (01) ==
LOC: MEDSURG 11:32
PROVIDERS: Admitting Provider Internal Medicine Cardiovascular Disease; Family Provider Internal Medicine Pulmonary Disease; PCP Emergency Medicine Emergency Medical Services; Visit Provider Internal Medicine Cardiovascular Disease
DX: I25.10 Atherosclerotic heart disease of native coronary artery without angina pectoris (principal); Z95.1 Presence of aortocoronary bypass graft; I73.9 Peripheral vascular disease, unspecified; J44.9 Chronic obstructive pulmonary disease, unspecified; E78.5 Hyperlipidemia, unspecified; Z79.82 Long term (current) use of aspirin; E11.22 Type 2 diabetes mellitus with diabetic chronic kidney disease; I13.0 Hypertensive heart and chronic kidney disease with heart failure and stage 1 through stage 4 chronic kidney disease, or unspecified chronic kidney disease; N18.32 Chronic kidney disease, stage 3b; I50.33 Acute on chronic diastolic (congestive) heart failure; Z79.84 Long term (current) use of oral hypoglycemic drugs; Z79.4 Long term (current) use of insulin; I25.2 Old myocardial infarction; Z82.49 Family history of ischemic heart disease and other diseases of the circulatory system; Z83.3 Family history of diabetes mellitus; Z82.3 Family history of stroke; Z87.891 Personal history of nicotine dependence
CPT/HCPCS: 36415; 36416; 80048; 82962; 93459; 94640; 96360; 96372; 99152; 99153; C1769; C1887; C1894; G0378; J1644; J1815; J2250; J3010; J7030; Q0163; Q9967

== ENCOUNTER → 2022-08-04 10:40 | Outpatient (BNVA) | payer OTHER, SELFPAY | PROVIDERS: Family Provider Internal Medicine Pulmonary Disease; PCP Emergency Medicine Emergency Medical Services; Visit Provider Nurse Practitioner Family | DX: I25.810 Atherosclerosis of coronary artery bypass graft(s) without angina pectoris (principal); Z87.891 Personal history of nicotine dependence; Z95.1 Presence of aortocoronary bypass graft; I13.0 Hypertensive heart and chronic kidney disease with heart failure and stage 1 through stage 4 chronic kidney disease, or unspecified chronic kidney disease; E11.22 Type 2 diabetes mellitus with diabetic chronic kidney disease; N18.9 Chronic kidney disease, unspecified; I50.9 Heart failure, unspecified; Z79.4 Long term (current) use of insulin | CPT/HCPCS: 80048; 99213; 99214 ==

== ENCOUNTER 2022-08-11 08:52 | Outpatient (CLI) | payer OTHER, SELFPAY ==
[2022-08-11 09:58] LABS: Anion Gap 14.3 (5-19); Blood Urea Nitrogen 25 mg/dL (8-23); Calcium 9.3 mg/dL (8.5-10.5); Carbon Dioxide 28 mmol/L (22-29); Chloride 100 mmol/L (98-107); Glomerular Filtration Rate 46.3 mL/min (90-130); Glucose 117 mg/dL (65-115); Osmolality Calculated 291 mOsm/kg (285-295); Potassium 4.3 mmol/L (3.5-5.1); Sodium 138 mmol/L (136-145)
== END 2022-08-11 08:53 | disposition home or self-care (01) ==
LOC: LAB 08:55
PROVIDERS: PCP Emergency Medicine Emergency Medical Services; Visit Provider Nurse Practitioner Family
DX: N18.32 Chronic kidney disease, stage 3b (principal); L60.3 Nail dystrophy; E11.42 Type 2 diabetes mellitus with diabetic polyneuropathy; M20.41 Other hammer toe(s) (acquired), right foot; L97.512 Non-pressure chronic ulcer of other part of right foot with fat layer exposed; E11.621 Type 2 diabetes mellitus with foot ulcer; Z79.84 Long term (current) use of oral hypoglycemic drugs; Z79.4 Long term (current) use of insulin
CPT/HCPCS: 28010; 28011; 36415; 80048

== ENCOUNTER 2022-08-25 06:00 | Outpatient (RCR) | payer OTHER, SELFPAY | END 2022-09-24 23:59 | disposition home or self-care (01) | LOC: PULRHB 06:00 | PROVIDERS: PCP Emergency Medicine Emergency Medical Services; Visit Provider Internal Medicine Pulmonary Disease | DX: J44.9 Chronic obstructive pulmonary disease, unspecified (principal) | CPT/HCPCS: G0239 ==

== ENCOUNTER → 2022-09-02 10:56 | Outpatient (BNVA) | payer OTHER, SELFPAY | PROVIDERS: PCP Emergency Medicine Emergency Medical Services; Visit Provider Internal Medicine | DX: Z79.899 Other long term (current) drug therapy (principal); M25.559 Pain in unspecified hip | CPT/HCPCS: 73521; 85025; 85651 ==

== ENCOUNTER → 2022-09-30 09:03 | Outpatient (BNVA) | payer OTHER, SELFPAY | PROVIDERS: PCP Emergency Medicine Emergency Medical Services; Visit Provider Internal Medicine Pulmonary Disease | DX: J44.9 Chronic obstructive pulmonary disease, unspecified (principal); T78.40XA Allergy, unspecified, initial encounter; D72.19 Other eosinophilia; J84.112 Idiopathic pulmonary fibrosis; Z87.891 Personal history of nicotine dependence; I25.10 Atherosclerotic heart disease of native coronary artery without angina pectoris; Z95.1 Presence of aortocoronary bypass graft | CPT/HCPCS: 99214 ==

== ENCOUNTER → 2022-10-18 08:11 | Outpatient (BNVA) | payer OTHER, SELFPAY | PROVIDERS: PCP Emergency Medicine Emergency Medical Services; Visit Provider Podiatrist Foot & Ankle Surgery | DX: E11.42 Type 2 diabetes mellitus with diabetic polyneuropathy (principal); L60.3 Nail dystrophy; L84 Corns and callosities; Z79.84 Long term (current) use of oral hypoglycemic drugs; Z79.4 Long term (current) use of insulin; M20.40 Other hammer toe(s) (acquired), unspecified foot | CPT/HCPCS: 11056; 11721 ==

== ENCOUNTER 2022-11-15 08:39 | Outpatient (CLI) | payer OTHER, SELFPAY ==
--- NOTE | 2022-11-15 09:00 | CT_ITS ---
WS: [id number] CT CHEST TECHNIQUE: Noncontrast CT of the chest with coronal and sagittal reformatted images. CLINICAL INFORMATION: check for worsening bronchiectasis, UIP vs IPF COMPARISON: CT chest 12/03/21 DLP: 666.[address] scans at [facility] use at least one of these dose optimization techniques: automated e xposure control; mA and/or kV adjustment per patient size (includes targeted exams where dose is matc hed to clinical indication); or iterative reconstruction. FINDINGS:Subsegmental atelectasis LEFT lower lobe. Suggestion of early changes of honeycombing in the RIGHT lower lobe unchanged from previous considering differences in technique. Mild chronic emphysem atous changes. Bronchiectasis in both lower lobes with bilateral hilar bronchovascular thickening. Sm all LEFT pleural effusion with chronic pleural thickening is unchanged. LEFT pleural plaques or pleur odesis Sternotomy. CABG. Vascular calcification. No mediastinal or hilar lymphadenopathy. No axillary lympha denopathy. Anterior hypertrophic changes thoracic spine. Partially visualized today low-attenuation lesion RIGHT hepatic lobe inferiorly measuring 2.5 cm. Rec ommend further evaluation with contrast-enhanced CT abdomen pelvis with liver protocol. This appears new from previous.Adrenal glands are normal. CT/CT chest wo con [id number] IMPRESSION: 1. 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 2. Prior sternotomy with CABG. Cardiomegaly. Thoracic aortic calcification. Co ronary calcification. 3. No mediastinal or hilar lymphadenopathy. 4. Small LEFT pleural effusion with pleurodesis or pleural plaques is unchange d. 5. Partially visualized vagal low-attenuation lesion RIGHT hepatic lobe inferi cesar measuring 2.5 cm. Recommend further evaluation with contrast-enhanced CT a bdomen pelvis with liver protocol. This appears new from previous.
== END 2022-11-15 08:40 | disposition home or self-care (01) ==
PROVIDERS: PCP Emergency Medicine Emergency Medical Services; Visit Provider Internal Medicine Pulmonary Disease
DX: J44.9 Chronic obstructive pulmonary disease, unspecified (principal); J84.112 Idiopathic pulmonary fibrosis; J90 Pleural effusion, not elsewhere classified; Z95.1 Presence of aortocoronary bypass graft; I51.7 Cardiomegaly; I70.0 Atherosclerosis of aorta; I25.10 Atherosclerotic heart disease of native coronary artery without angina pectoris
CPT/HCPCS: 71250

== ENCOUNTER 2022-11-28 09:36 | Emergency (ER) | payer OTHER, SELFPAY ==
[2022-11-28] VITALS (30 sets, daily range): BP systolic 105–149; BP diastolic 63–117; PULSE 72–81; RESP 0–24; TEMP 36.3; O2SAT 90–100
--- NOTE | 2022-11-28 09:57 | XRR_ITS ---
PROCEDURE INFORMATION: Exam: XR Chest Exam date and time: 11/28/2022 10:03 AM Age: 72 years old Clinical indication: Cough and dyspnea; Prior surgery; Surgery type: Cabg; Additional info: Dyspnea/cough TECHNIQUE: Imaging protocol: Radiologic exam of the chest. Views: 1 view. COMPARISON: CT chest [facility] [id number] 11/15/2022 9:04 AM FINDINGS: Lungs: There is stable left basilar opacity which is consistent with atelectasis and chronic pleural/parenchymal fibrosis. The right lung is clear. Pleural spaces: No pneumothorax. Heart/Mediastinum: The cardiac silhouette is enlarged but unchanged. Bones/joints: Unremarkable. XR/XR chest 1V portable [id number] IMPRESSION: 1. No acute abnormality. 2. Stable cardiomegaly. 3. Stable left basilar pleural/parenchymal fibrosis.
--- NOTE | 2022-11-28 09:57 | ECG_ITS ---
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 Measurements Intervals [place] Rate: 78 P: 34 PA: 241 QRS: -24 QRSD: 161 T: 61 QT: 419 QTc: 480 Interpretive Statements SINUS RHYTHM WITH FIRST DEGREE AV BLOCK WITH OCCASIONAL VENTRICULAR PREMATURE COMPLEXES POSSIBLE LEFT ATRIAL ENLARGEMENT [-0.1mV P-WAVE IN V1/V2] RIGHT BUNDLE BRANCH BLOCK [120+ ms QRS DURATION, UPRIGHT V1, 40+ ms S IN I/aVL/V4/V5/V6] ANTEROSEPTAL MYOCARDIAL INFARCTION , PROBABLY OLD [40+ ms Q WAVE IN V1-V4] Compared to ECG 03/23/2021 23:51:00 Ventricular premature complex(es) now present First degree AV block now present Myocardial infarct finding now present Electronically Signed On 11-28-2022 10:50:42 CONVICT GUARD by Robert Fairbanks M.D. [id number]
[2022-11-28 10:23] LABS: Basophils # 0.1 10^3/uL (0.0-0.1); Basophils % 0.6 %; Eosinophils # 0.4 10^3/uL (0.0-0.8); Eosinophils % 3.3 %; Hematocrit 43.1 % (42.0-52.0); Hemoglobin 13.8 g/dL (11.7-16.6); Lymphocytes % 9.6 %; Mean Corpuscular Hemoglobin 30.9 pg (28.0-34.0); Mean Corpuscular Volume 96.6 fl (80-94); Mean Platelet Volume 10.6 fL (7.4-10.4); Monocytes # 0.7 10^3/uL (0.2-0.9); Monocytes % 6.9 %; Neutrophils # 8.53 10^3/uL (1.8-7.7); Neutrophils % 79.2 %; Nucleated Red Blood Cells % 0 %; Platelet Count 217 10^3/cmm (130-400); Red Blood Count 4.46 10^6/uL (4.1-5.3); Red Cell Distribution Width 13.5 % (12.1-15.1); White Blood Count 10.8 10^3/uL (4.0-10.0)
[2022-11-28 10:46] LABS: Alanine Aminotransferase 12 U/L (0-41); Albumin Level 4.2 g/dL (3.5-5.2); Alkaline Phosphatase 71 U/L (40-130); Anion Gap 16.4 (5-19); Aspartate Amino Transferase 15 U/L (0-40); Blood Urea Nitrogen 30 mg/dL (8-23); Calcium 9.4 mg/dL (8.5-10.5); Carbon Dioxide 27 mmol/L (22-29); Chloride 98 mmol/L (98-107); Globulin 3.4 g/dL (1.3-4.6); Glomerular Filtration Rate 46.3 mL/min (90-130); Glucose 230 mg/dL (65-115); Osmolality Calculated 297 mOsm/kg (285-295); Potassium 4.4 mmol/L (3.5-5.1); Sodium 137 mmol/L (136-145); Total Bilirubin 0.7 mg/dL (0.15-1.2); Total Protein 7.6 g/dL (6.6-8.7)
--- NOTE | 2022-11-28 10:58 | ED_ITS ---
HPI - SOB/Dyspnea General: Chief Complaint: Shortness of Breath/Dyspnea Stated Complaint: sob Time Seen by Provider: 11/28/22 09:53 Source: patient Mode of arrival: ambulatory History of Present Illness: HPI Narrative: 72-year-old male presents emergency room complaining of cough shortness of breath fever congestion for the last several days. Reports a temp as high as 1019. He is on aspirin and Plavix he has had a little bit of blood-tinged sputum and small clots occasionally no large amounts of clotting. Patient has a history of COPD has seen pulmonology in the past. MD elicited complaint: shortness of breath and cough Pertinent past history: COPD Onset (ago): day(s) Severity: mild Exacerbating factors: lying flat, exertion and coughing Relieving factors: rest Known history of: COPD Associated symptoms: Reports chest congestion, cough and orthopnea; Deny abdominal pain, chest pain, diaphoresis, dizziness, extremity pain, fever(s), hemoptysis, lightheadedness, myalgias, nausea, palpitations, paresthesias, polydipsia, polyuria, rash, sense of impending doom, syncope or vomiting Treatment prior to arrival: none Review of Systems Const: Denies: fever(s) or diaphoresis ENMT: Denies: throat pain, ear or mastoid pain, nasal discharge or nasal congestion Card: Reports: orthopnea; Denies: chest pain, palpitations, lightheadedness or syncope Resp: Reports: chest congestion; Denies: hemoptysis GI: Denies: abdominal pain, nausea or vomiting : Denies: flank pain, dysuria, urinary frequency or urinary urgency Musc: Denies: extremity pain Skin/Breast: Denies: rash or pruritus Neuro: Denies: dizziness Endo: Denies: polyuria or polydipsia PFSH ED PFSH: Medical History Acute kidney injury Acute on chronic diastolic (congestive) heart failure Anemia Arthralgia Atherosclerosis of coronary artery of [place] heart without angina pectoris CHF exacerbation CKD (chronic kidney disease) Community acquired pneumonia COPD (chronic obstructive pulmonary disease) Diabetes Hyperlipidemia Hypertension Normochromic normocytic anemia NSTEMI (non-ST elevated myocardial infarction) Pancreatic cyst Pancreatitis Pleural effusion Pneumonia Restrictive lung disease Sacroiliac dysfunction Sepsis Umbilical hernia, incarcerated Surgical History H/O esophagogastroduodenoscopy History of colonoscopy with polypectomy History of coronary angioplasty with insertion of stent Hx of CABG Family History Brother CAD (coronary artery disease) Diabetes Lung disease Sister CAD (coronary artery disease) Diabetes Cancer Lung disease Father CAD (coronary artery disease) Diabetes Lung disease Mother CAD (coronary artery disease) Diabetes Stroke Brother CAD (coronary artery disease) Diabetes Lung disease Brother CAD (coronary artery disease) Diabetes Sister CAD (coronary artery disease) Diabetes Lung disease Sister CAD (coronary artery disease) Diabetes Sister CAD (coronary artery disease) Diabetes Daughter Chronic kidney disease (CKD) Diabetes Denies family history of Clotting disorder Dementia Suicide Anesthesia complication Bleeding disorder Social History Smoking and tobacco status: former smoker Quit status (tobacco): has quit using tobacco Year quit tobacco: 1983 [id number] Second hand smoke exposure: No Smoking risk assessment/counseling performed?: Yes Alcohol intake: former Adopted: No Caregiver/support person: Yes Lives independently: Yes Household members: spouse Housing: House Marital status: service: Yes Current occupational status: retired Pets and animals: No Leisure activites: exercise Sexually active: No Current gender identity: Male Mayra/Taoism: Bahai Special mayra needs: No Agree to transfusion: No Financial difficulty paying for basics: Decline to Answer Physical Exam Const: GENERAL APPEARANCE: cooperative and comfortable ORIENTATION/CONSCIOUSNESS: Yes awake, Yes oriented to person, Yes oriented to place and Yes oriented to time HENMT: COMMON NORMALS: normocephalic, atraumatic and hearing grossly normal bilaterally HEAD & SCALP: normocephalic and atraumatic Resp: COMMON NORMALS: normal respiratory effort, No retractions and No use of accessory muscles AUSCULTATION: crackles (base) Laterality: left Cardio: COMMON NORMALS: regular rate, regular rhythm and No murmurs present (Cardio) RATE: regular rate RHYTHM: regular rhythm GI: COMMON NORMALS: Soft to palpation and No hepatosplenomegaly present AUSCULTATION: Yes normoactive bowel sounds PALPATION: Yes Soft to palpation, No Tenderness to palpation present (GI), No Guarding due to palpation present (GI) and Yes No hepatosplenomegaly present Extremity: COMMON NORMALS: normal to inspection, capillary refill normal and no calf tenderness GENERAL: Yes edema (mild) Neuro: SENSORIUM/ORIENTATION: Yes oriented to person, Yes oriented to place and Yes oriented to time Skin: COMMON NORMALS: no rashes or lesions noted GENERAL SKIN EXAM: no rashes or lesions noted Course Vital Signs: Vital signs: Vital Signs Temperature 97.3 F L 11/28/22 09:42 Pulse Rate 76 11/28/22 12:00 Respiratory Rate 22 H 11/28/22 12:00 Blood Pressure 129/63 11/28/22 12:00 Pulse Oximetry 100 11/28/22 11:55 Oxygen Delivery Me thod 11/28/22 11:50 MDM - SOB/Dyspnea Medical Decision Making Exacerbation of COPD with mild hemoptysis hemoptysis. Put him on steroids and antibiotics. There is no clear-cut pneumonia on the chest x-ray. He is CT last month did not show any masses. He has some chronic restrictive lung disease. Put him on doxycycline 100 twice daily steroid taper use albuterol as needed follow-up with pulmonology within the next 1 to 2 weeks. Medical Records I reviewed the patient's medical records. Lab Data I reviewed the patient's lab results. 11/28/22 10:10 11/28/22 10:10 Labs/Radiology: Radiology Impressions Chest X-Ray 11/28/22 09:57 IMPRESSION: 1. No acute abnormality. 2. Stable cardiomegaly. 3. Stable left basilar pleural/parenchymal fibrosis. Laboratory Results WBC 10.8 10^3/uL (4.0-10.0) H 11/28/22 10:10 RBC 4.46 10^6/uL (4.1-5.3) 11/28/22 10:10 Hgb 13.8 g/dL (11.7-16.6) 11/28/22 10:10 Hct 43.1 % (42.0-52.0) 11/28/22 10:10 MCV 96.6 fl (80-94) H 11/28/22 10:10 MCH 30.9 pg (28.0-34.0) 11/28/22 10:10 MCHC 32.0 g/dL (30.0-36.0) 11/28/22 10:10 RDW 13.5 % (12.1-15.1) 11/28/22 10:10 Plt Count 217 10^3/cmm (130-400) 11/28/22 10:10 MPV 10.6 fL (7.4-10.4) H 11/28/22 10:10 Neut % (Auto) 79.2 % 11/28/22 10:10 Lymph % (Auto) 9.6 % 11/28/22 10:10 [place] % (Auto) 6.9 % 11/28/22 10:10 Eos % (Auto) 3.3 % 11/28/22 10:10 Baso % (Auto) 0.6 % 11/28/22 10:10 Neut # (Auto) 8.53 10^3/uL (1.8-7.7) H 11/28/22 10:10 Lymph # (Auto) 1.0 10^3/uL (0.8-4.8) 11/28/22 10:10 [place] # (Auto) 0.7 10^3/uL (0.2-0.9) 11/28/22 10:10 Eos # (Auto) 0.4 10^3/uL (0.0-0.8) 11/28/22 10:10 Baso # (Auto) 0.1 10^3/uL (0.0-0.1) 11/28/22 10:10 Nucleated RBC % (auto) 0 % 11/28/22 10:10 Nucleated RBCs # 0.0 /100WBC 11/28/22 10:10 PT 14.20 SECONDS (12.1-14.9) 11/28/22 10:10 INR 1.06 (0.8-1.2) 11/28/22 10:10 APTT 33.4 SECONDS (23.9-36.7) 11/28/22 10:10 Sodium 137 mmol/L (136-145) 11/28/22 10:10 Potassium 4.4 mmol/L (3.5-5.1) 11/28/22 10:10 Chloride 98 mmol/L (98-107) 11/28/22 10:10 Carbon Dioxide 27 mmol/L (22-29) 11/28/22 10:10 Anion Gap 16.4 (5-19) 11/28/22 10:10 BUN 30 mg/dL (8-23) H 11/28/22 10:10 Creatinine 1.5 mg/dL (0.7-1.2) H 11/28/22 10:10 GFR Calculation 46.3 mL/min (90-130) L 11/28/22 10:10 Glucose 230 mg/dL (65-115) H 11/28/22 10:10 Calculated Osmolality 297 mOsm/kg (285-295) H 11/28/22 10:10 Calcium 9.4 mg/dL (8.5-10.5) 11/28/22 10:10 Total Bilirubin 0.7 mg/dL (0.15-1.2) 11/28/22 10:10 AST 15 U/L (0-40) 11/28/22 10:10 ALT 12 U/L (0-41) 11/28/22 10:10 Alkaline Phosphatase 71 U/L (40-130) 11/28/22 10:10 NT-Pro-B Natriuret Pep 3184 pg/mL (0-125) H 11/28/22 10:10 Total Protein 7.6 g/dL (6.6-8.7) 11/28/22 10:10 Albumin 4.2 g/dL (3.5-5.2) 11/28/22 10:10 Globulin 3.4 g/dL (1.3-4.6) 11/28/22 10:10 Influenza Type A Ag negative (Negative) 11/28/22 11:12 Influenza Type B Ag negative (Negative) 11/28/22 11:12 Discharge Plan Discharge Patient Disposition: Home Clinical Impression: Restrictive lung disease, Bronchitis, Cough with hemoptysis Condition: Stable Prescriptions: New doxycycline hyclate 100 mg capsule 100 mg PO BID 10 Days Qty: 20 0RF prednisone 20 mg tablet 20 mg PO TID Qty: 15 0RF Rx Instructions: 1 p.o. 3 times daily x3 days, 1 p.o. twice daily x2 days, 1 p.o. daily x2 days albuterol sulfate 90 mcg/actuation HFA aerosol inhaler 2 inh INHALATION Q4H PRN (Reason: shortness of breath or wheezing) Qty: 18 0RF No Action cetirizine 10 mg capsule 10 mg PO DAILY@1800 fluticasone propionate [Allergy Relief (fluticasone)] 50 mcg/actuation spray,suspension 2 spray INTRANASAL DAILY@0700 PRN (Reason: Congestion) Rx Instructions: administer into each nostril amlodipine 5 mg tablet 10 mg PO DAILY metformin 1,000 mg tablet 500 mg PO BID@0700,1800 Hold Instructions: Resume on 07/30/22. May restart the metformin on Monday guaifenesin [Mucinex] 600 mg tablet extended release 12hr 600 mg PO Q12H PRN (Reason: congestion) Qty: 30 2RF vitamin E 200 unit capsule 200 unit PO DAILY hydralazine 25 mg tablet 25 mg PO TID Qty: 90 3RF albuterol sulfate [ProAir HFA] 90 mcg/actuation HFA aerosol inhaler 2 puff inhalation Q6H PRN (Reason: Shortness Of Breath Or Wheezing) clopidogrel 75 mg tablet 75 mg PO DAILY lovastatin 40 mg tablet 20 mg PO DAILY methocarbamol 750 mg tablet 750 mg PO Q12H PRN (Reason: Muscle Pain) ferrous gluconate 324 mg (38 mg iron) tablet 324 mg PO DAILY Lantus U-100 Insulin 38 unit PO BID@0700,1800 Label Comments: PATIENT TOOK 19 UNITS LAST PM (07-26-22) INSTRUCTED PER 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 ENGINEER 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 diclofenac sodium 1 % gel 2 g topical QID Rx Instructions: apply to single elbow, wrist or hand; for hand includes palm/fingers/back of hand Coricidin HBP Chest Ayaan-Cough 10-200 mg capsule 1 tab-cap PO Q8H PRN (Reason: Cold Symptoms) valsartan 160 mg tablet 240 mg PO DAILY Qty: 90 3RF ascorbate calcium (vitamin C) 500 mg tablet 500 mg PO DAILY vitamin B complex [B Complex-Vitamin B12] Tablet 1 tab PO DAILY magnesium oxide 400 mg magnesium capsule 400 mg PO DAILY fluticasone propion-salmeterol [Wixela Inhub] 250-50 mcg/dose blister with device 1 inh inhalation BID Qty: 60 3RF sulfasalazine 500 mg tablet,delayed release (DR/EC) 0.5 g PO BID carvedilol [Coreg] 25 mg tablet 25 mg PO BID Qty: 60 0RF Rx Instructions: must administer with a meal/food furosemide 40 mg tablet 40 mg PO BID aspirin 81 mg Tablet,Delayed Release (Dr/Ec) 81 mg PO DAILY@0700 insulin aspart U-100 [Novolog FlexPen U-100 Insulin] 100 unit/mL (3 mL) in sulin pen 5 unit SUBCUT DAILY PRN (Reason: High Blood Sugar) Rx Instructions: PT USING SLIDING SCALE ONLY, NOW. isosorbide mononitrate 30 mg Tablet Extended Release 24 Hr 30 mg PO DAILY Qty: 30 3RF Discharge Orders: Discharge ED (Routine); Ordered 11/28/22 Ordered By: Bull Yu Referrals: Bill Prescott DO [Primary Care Provider] - Patient Instructions: Opioid Safety, Pain Management Activity Restrictions/Additional Instructions: You were seen today for cough congestion fever with mild hemoptysis (coughing up blood). Review of your chart showed recent CT years that show any significant abnormalities previous pulmonary function test that showed restrictive lung disease. Recommend that you take a course of steroids and antibiotics use albuterol as needed and follow-up with pulmonology within the next 2 weeks return to follow-up with your primary care pulmonology sooner if your symptoms persist or worsen. Coding Level of Care Code ED Structural Ironworker for Georges Sanderson
[2022-11-28 10:59] LABS: NT Pro B Type Natriuretic Pept 3184 pg/mL (0-125)
[2022-11-28 11:11] LABS: INR 1.06 (0.8-1.2)
[2022-11-28 11:12] LABS: Partial Thromboplastin Time 33.4 SECONDS (23.9-36.7)
[2022-11-28] MEDS: ipratropium-albuterol 3 mL Neb INHALATION (11:50)
[2022-11-28 11:56] LABS: Influenza A by IFA negative (Negative); Influenza B by IFA negative (Negative)
[2022-11-28 13:27] LABS: Adenovirus Not Detected (NOT DETECT); Chlamydia Pneumoniae Not Detected (NOT DETECT); Coronavirus 229E,HKU1,NL63,OC4 Not Detected (NOT DETECT); Human Metapneumovirus Not Detected (NOT DETECT); Human Rhinovirus/Enterovirus Not Detected (NOT DETECT); Influenza A Not Detected (NOT DETECT); Influenza A H1 Not Detected (NOT DETECT); Influenza A H1-2009 Not Detected (NOT DETECT); Influenza A H3 Not Detected (NOT DETECT); Influenza B Not Detected (NOT DETECT); Mycoplasma Pneumoniae Not Detected (NOT DETECT); Parainfluenza Virus Type 1 Not Detected (NOT DETECT); Parainfluenza Virus Type 2 Not Detected (NOT DETECT); Parainfluenza Virus Type 3 Not Detected (NOT DETECT); Parainfluenza Virus Type 4 Not Detected (NOT DETECT); Respiratory Syncytial Virus A Not Detected (NOT DETECT); Respiratory Syncytial Virus B Not Detected (NOT DETECT); SARS-COV-2 Not Detected (NOT DETECT)
== END 2022-11-28 12:24 | disposition home or self-care (01) ==
PROVIDERS: Emergency Provider Family Medicine; PCP Emergency Medicine Emergency Medical Services
DX: J44.0 Chronic obstructive pulmonary disease with (acute) lower respiratory infection (principal); J40 Bronchitis, not specified as acute or chronic; J98.4 Other disorders of lung; R04.2 Hemoptysis; Z79.84 Long term (current) use of oral hypoglycemic drugs; Z79.02 Long term (current) use of antithrombotics/antiplatelets; Z79.4 Long term (current) use of insulin; Z79.82 Long term (current) use of aspirin; Z87.891 Personal history of nicotine dependence; I25.10 Atherosclerotic heart disease of native coronary artery without angina pectoris; I13.0 Hypertensive heart and chronic kidney disease with heart failure and stage 1 through stage 4 chronic kidney disease, or unspecified chronic kidney disease; N18.9 Chronic kidney disease, unspecified; I50.32 Chronic diastolic (congestive) heart failure; E78.5 Hyperlipidemia, unspecified; I25.2 Old myocardial infarction; Z95.1 Presence of aortocoronary bypass graft; Z95.5 Presence of coronary angioplasty implant and graft; Z20.822 Contact with and (suspected) exposure to COVID-19
CPT/HCPCS: 71045; 80053; 83880; 85025; 85610; 85730; 87635; 87804; 93005; 94640; 96374; 99284; J2930

== ENCOUNTER → 2022-12-16 11:25 | Outpatient (BNVA) | payer OTHER, SELFPAY | PROVIDERS: PCP Emergency Medicine Emergency Medical Services; Visit Provider Internal Medicine | DX: M06.00 Rheumatoid arthritis without rheumatoid factor, unspecified site (principal); R70.0 Elevated erythrocyte sedimentation rate; M79.10 Myalgia, unspecified site; N18.32 Chronic kidney disease, stage 3b; I77.9 Disorder of arteries and arterioles, unspecified | CPT/HCPCS: 99214 ==

== ENCOUNTER → 2022-12-27 15:23 | Outpatient (BNVA) | payer OTHER, SELFPAY | PROVIDERS: PCP Emergency Medicine Emergency Medical Services; Visit Provider Internal Medicine Cardiovascular Disease | DX: I25.10 Atherosclerotic heart disease of native coronary artery without angina pectoris (principal); I77.9 Disorder of arteries and arterioles, unspecified; E78.5 Hyperlipidemia, unspecified; I13.0 Hypertensive heart and chronic kidney disease with heart failure and stage 1 through stage 4 chronic kidney disease, or unspecified chronic kidney disease; E11.22 Type 2 diabetes mellitus with diabetic chronic kidney disease; N18.32 Chronic kidney disease, stage 3b; I50.33 Acute on chronic diastolic (congestive) heart failure; Z87.891 Personal history of nicotine dependence; Z79.4 Long term (current) use of insulin; Z79.82 Long term (current) use of aspirin; Z95.1 Presence of aortocoronary bypass graft | CPT/HCPCS: 99214 ==

== ENCOUNTER → 2023-01-19 09:52 | Outpatient (BNVA) | payer OTHER, SELFPAY | PROVIDERS: PCP Emergency Medicine Emergency Medical Services; Visit Provider Podiatrist Foot & Ankle Surgery | DX: E11.8 Type 2 diabetes mellitus with unspecified complications (principal); L60.3 Nail dystrophy; E11.42 Type 2 diabetes mellitus with diabetic polyneuropathy; L84 Corns and callosities; L85.3 Xerosis cutis; M20.41 Other hammer toe(s) (acquired), right foot; Z79.4 Long term (current) use of insulin | CPT/HCPCS: 11056; 11721 ==

== ENCOUNTER 2023-02-01 22:59 | Emergency (ER) | payer OTHER, SELFPAY ==
--- NOTE | 2023-02-01 23:02 | ECG_ITS ---
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 Measurements Intervals [place] Rate: 110 P: 266 MN: 183 QRS: 18 QRSD: 150 T: 52 QT: 382 QTc: 517 Interpretive Statements ECTOPIC ATRIAL TACHYCARDIA INDETERMINATE AXIS RIGHT BUNDLE BRANCH BLOCK [120+ ms QRS DURATION, UPRIGHT V1, 40+ ms S IN I/aVL/V4/V5/V6] SEPTAL MYOCARDIAL INFARCTION , OF INDETERMINATE AGE [40+ ms Q WAVE IN V1/V2] ST DEPRESSION, CONSIDER SUBENDOCARDIAL INJURY [0.1+ mV ST DEPRESSION] Compared to ECG 11/28/2022 10:22:04 Indeterminate axis now present ST (T wave) deviation now present Sinus rhythm no longer present First degree AV block no longer present Myocardial infarct finding still present Electronically Signed On 02-02-2023 13:59:48 CDT by Manjeet Soares M.D. [id number]
--- NOTE | 2023-02-01 23:02 | XRR_ITS ---
PROCEDURE INFORMATION: Exam: XR Chest Exam date and time: 02/01/2023 11:06 PM Age: 72 years old Clinical indication: Pain; Chest pressure; Prior surgery; Surgery date: 6+ months; Surgery type: Stents, bypass; Additional info: Cp TECHNIQUE: Imaging protocol: Radiologic exam of the chest. Views: 1 view. COMPARISON: CR XR chest 1V portable [id number] 11/28/2022 10:03 AM FINDINGS: Lungs: Left lower lobe atelectasis versus minimal infiltrate. Pleural spaces: Unremarkable. No pleural effusion. No pneumothorax. Heart/Mediastinum: Cardiomegaly. Diaphragm: Left diaphragmatic eventration. Bones/joints: Sternotomy wires. XR/XR chest 1V portable [id number] IMPRESSION: 1. Left diaphragmatic eventration. 2. Left lower lobe atelectasis versus minimal infiltrate. 3. Cardiomegaly. 4. Sternotomy wires.
--- NOTE | 2023-02-01 23:10 | W.ED.CHESTPA ---
HPI - Chest Pain General: Chief Complaint: Chest Pain Stated Complaint: Chest Pains Time Seen by Provider: 02/01/23 23:02 Source: patient Mode of arrival: ambulatory Limitations: no limitations History of Present Illness: 72-year-old male who has extensive cardiac history states that tonight at around 7 30-8 he started having some slight pains in his chest he felt like it might be reflux he took an acid he had no improvement states and some radiation to his neck states pain is mild currently rates it a 2 out of 10 he denies any shortness of breath denies any nausea denies any diaphoresis he denies any worsening improving factors. Associated symptoms: Deny abdominal pain, dyspnea, fever(s), nausea or vomiting Review of Systems Const: Denies: fever(s) or chills Eyes: Denies: eye discomfort ENMT: Denies: throat pain or dental pain Card: Reports: chest pain Resp: Denies: dyspnea GI: Denies: abdominal pain, nausea, vomiting or diarrhea : Denies: dysuria Musc: Denies: neck pain or back pain Skin/Breast: Denies: rash PFSH ED PFSH: Medical History Acute kidney injury Acute on chronic diastolic (congestive) heart failure Anemia Arthralgia Atherosclerosis of coronary artery of [place] heart without angina pectoris CHF exacerbation CKD (chronic kidney disease) Community acquired pneumonia COPD (chronic obstructive pulmonary disease) Diabetes Hyperlipidemia Hypertension Normochromic normocytic anemia NSTEMI (non-ST elevated myocardial infarction) Pancreatic cyst Pancreatitis Pleural effusion Pneumonia Restrictive lung disease Sacroiliac dysfunction Sepsis Umbilical hernia, incarcerated Surgical History H/O esophagogastroduodenoscopy History of colonoscopy with polypectomy History of coronary angioplasty with insertion of stent Hx of CABG Family History Brother CAD (coronary artery disease) Diabetes Lung disease Sister CAD (coronary artery disease) Diabetes Cancer Lung disease Father CAD (coronary artery disease) Diabetes Lung disease Mother CAD (coronary artery disease) Diabetes Stroke Brother CAD (coronary artery disease) Diabetes Lung disease Brother CAD (coronary artery disease) Diabetes Sister CAD (coronary artery disease) Diabetes Lung disease Sister CAD (coronary artery disease) Diabetes Sister CAD (coronary artery disease) Diabetes Daughter Chronic kidney disease (CKD) Diabetes Denies family history of Clotting disorder Dementia Suicide Anesthesia complication Bleeding disorder Social History Smoking and tobacco status: former smoker Quit status (tobacco): has quit using tobacco Year quit tobacco: 1983 [id number] Second hand smoke exposure: No Smoking risk assessment/counseling performed?: Yes Alcohol intake: former Substance/Drug Use: never Adopted: No Caregiver/support person: Yes Lives independently: Yes Household members: spouse Housing: House Marital status: service: Yes Current occupational status: retired Pets and animals: No Leisure activites: exercise Sexually active: No Do you think of yourself as: Straight/Heterosexual Current gender identity: Male Mayra/Alevism: Anglican Special mayra needs: No Agree to transfusion: No Financial difficulty paying for basics: Decline to Answer Physical Exam Const: COMMON NORMALS: no acute distress, patient oriented x3 and healthy appearing HENMT: COMMON NORMALS: normocephalic and atraumatic HEAD & SCALP: normocephalic and atraumatic Eye: COMMON NORMALS: conjunctivae normal CONJUNCTIVA: Yes conjunctivae normal Neck/C-Spine: COMMON NORMALS: full ROM and supple Chest: COMMONS NORMALS: normal inspection of the chest and normal palpation of entire chest wall Resp: COMMON NORMALS: normal respiratory effort, No retractions, No use of accessory muscles and clear to auscultation bilaterally AUSCULTATION: clear to auscultation bilaterally Cardio: COMMON NORMALS: regular rate, regular rhythm and No murmurs present (Cardio) RATE: regular rate RHYTHM: regular rhythm GI: COMMON NORMALS: Normal to inspection, nondistended, normoactive bowel sounds present, Soft to palpation, non-tender and no masses PALPATION: Yes Soft to palpation Extremity: COMMON NORMALS: normal to inspection and full ROM Neuro: COMMON NORMALS: patient oriented x3, moves all extremities and no focal motor deficits Psych: COMMON NORMALS: mental status grossly normal, Normal thought process present and cooperative THOUGHT PROCESS: Normal thought process present Skin: COMMON NORMALS: no rashes or lesions noted and no wounds GENERAL SKIN EXAM: no rashes or lesions noted Course Vital Signs: Vital signs: Vital Signs Pulse Rate 89 02/02/23 00:45 Respiratory Rate 15 02/02/23 00:45 Blood Pressure 155/71 02/02/23 00:45 Pulse Oximetry 88 L 02/02/23 00:45 Oxygen Delivery Me thod Room Air 02/02/23 00:45 MDM - Chest Pain Medical Decision Making Patient presents for chest pain that is since resolved he had no pain here his initial and repeat troponin are unchanged he is wanting to go home feel he is stable for discharge he is to 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 Medical Records I reviewed the patient's medical records. Lab Data I reviewed the patient's lab results. 02/01/23 23:12 02/01/23 23:12 Radiology Impressions Chest X-Ray 02/01/23 23:02 IMPRESSION: 1. Left diaphragmatic eventration. 2. Left lower lobe atelectasis versus minimal infiltrate. 3. Cardiomegaly. 4. Sternotomy wires. Laboratory Results WBC 9.5 10^3/uL (4.0-10.0) 02/01/23 23:12 RBC 4.98 10^6/uL (4.1-5.3) 02/01/23 23:12 Hgb 15.0 g/dL (11.7-16.6) 02/01/23 23:12 Hct 45.4 % (42.0-52.0) 02/01/23 23:12 MCV 91.2 fl (80-94) 02/01/23 23:12 MCH 30.1 pg (28.0-34.0) 02/01/23 23:12 MCHC 33.0 g/dL (30.0-36.0) 02/01/23 23:12 RDW 14.5 % (12.1-15.1) 02/01/23 23:12 Plt Count 249 10^3/cmm (130-400) 02/01/23 23:12 MPV 10.1 fL (7.4-10.4) 02/01/23 23:12 Neut % (Auto) 71.3 % 02/01/23 23:12 Lymph % (Auto) 12.6 % 02/01/23 23:12 [place] % (Auto) 9.4 % 02/01/23 23:12 Eos % (Auto) 5.6 % 02/01/23 23:12 Baso % (Auto) 0.8 % 02/01/23 23:12 Neut # (Auto) 6.73 10^3/uL (1.8-7.7) 02/01/23 23:12 Lymph # (Auto) 1.2 10^3/uL (0.8-4.8) 02/01/23 23:12 [place] # (Auto) 0.9 10^3/uL (0.2-0.9) 02/01/23 23:12 Eos # (Auto) 0.5 10^3/uL (0.0-0.8) 02/01/23 23:12 Baso # (Auto) 0.1 10^3/uL (0.0-0.1) 02/01/23 23:12 Nucleated RBC % (auto) 0 % 02/01/23 23:12 Nucleated RBCs # 0.0 /100WBC 02/01/23 23:12 PT 13.30 SECONDS (12.1-14.9) 02/01/23 23:12 INR 0.99 (0.8-1.2) 02/01/23 23:12 Sodium 135 mmol/L (136-145) L 02/01/23 23:12 Potassium 4.0 mmol/L (3.5-5.1) 02/01/23 23:12 Chloride 98 mmol/L (98-107) 02/01/23 23:12 Carbon Dioxide 25 mmol/L (22-29) 02/01/23 23:12 Anion Gap 16.0 (5-19) 02/01/23 23:12 BUN 27 mg/dL (8-23) H 02/01/23 23:12 Creatinine 1.4 mg/dL (0.7-1.2) H 02/01/23 23:12 GFR Calculation 50.1 mL/min (90-130) L 02/01/23 23:12 Glucose 231 mg/dL (65-115) H 02/01/23 23:12 Calculated Osmolality 292 mOsm/kg (285-295) 02/01/23 23:12 Calcium 10.0 mg/dL (8.5-10.5) 02/01/23 23:12 Total Bilirubin 0.3 mg/dL (0.15-1.2) 05/10/23 23:12 AST 17 U/L (0-40) 02/01/23 23:12 ALT 16 U/L (0-41) 02/01/23 23:12 Alkaline Phosphatase 68 U/L (40-130) 02/01/23 23:12 Troponin T Baseline 42 ng/L (0-15) H 02/01/23 23:12 Troponin T 120 Minute 46.62 ng/L (0-15) H 02/02/23 00:28 Delta Troponin T 4.62 ABS# (0-10) 02/02/23 00:28 Total Protein 7.4 g/dL (6.6-8.7) 02/01/23 23:12 Albumin 4.3 g/dL (3.5-5.2) 02/01/23 23:12 Globulin 3.1 g/dL (1.3-4.6) 02/01/23 23:12 EKG Data EKG 1: I personally reviewed and interpreted this EKG as follows: EKG interpretation date: 02/01/23 EKG interpretation time: 23:07 Interpretation: no st elevation qrs 150 qtc 447 Discharge Plan Discharge Patient Disposition: Home Clinical Impression: Chest pain Condition: Stable Prescriptions: No Action cetirizine 10 mg capsule 10 mg PO DAILY@1800 fluticasone propionate [Allergy Relief (fluticasone)] 50 mcg/actuation spray,suspension 2 spray INTRANASAL DAILY@0700 PRN (Reason: Congestion) Rx Instructions: administer into each nostril amlodipine 5 mg tablet 10 mg PO DAILY metformin 1,000 mg tablet 500 mg PO BID@0700,1800 Hold Instructions: Resume on 07/30/22. May restart the metformin on Monday guaifenesin [Mucinex] 600 mg tablet extended release 12hr 600 mg PO Q12H PRN (Reason: congestion) Qty: 30 2RF vitamin E 200 unit capsule 200 unit PO DAILY hydralazine 25 mg tablet 25 mg PO TID Qty: 90 3RF albuterol sulfate [ProAir HFA] 90 mcg/actuation HFA aerosol inhaler 2 puff inhalation Q6H PRN (Reason: Shortness Of Breath Or Wheezing) clopidogrel 75 mg tablet 75 mg PO DAILY lovastatin 40 mg tablet 20 mg PO DAILY methocarbamol 750 mg tablet 750 mg PO Q12H PRN (Reason: Muscle Pain) Lantus U-100 Insulin 38 unit PO BID@0700,1800 Patient Comments: PATIENT TOOK 19 UNITS LAST PM (07-26-22) 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 FRYER 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 HELPER NURSE diclofenac sodium 1 % gel 2 g topical QID Rx Instructions: apply to single elbow, wrist or hand; for hand includes palm/fingers/back of hand Coricidin HBP Chest Ayaan-Cough 10-200 mg capsule 1 tab-cap PO Q8H PRN (Reason: Cold Symptoms) valsartan 160 mg tablet 240 mg PO DAILY Qty: 90 3RF ascorbate calcium (vitamin C) 500 mg tablet 500 mg PO DAILY vitamin B complex [B Complex-Vitamin B12] Tablet 1 tab PO DAILY magnesium oxide 400 mg magnesium capsule 400 mg PO DAILY ammonium lactate 12 % lotion 1 applic topical BID Qty: 225 5RF (DME) Diabetic shoes With 3 Inserts See Rx Instructions .Route .MEDSUPPLY Qty: 1 0RF Rx Instructions: As directed fluticasone propion-salmeterol [Wixela Inhub] 250-50 mcg/dose blister with device 1 inh inhalation BID Qty: 60 3RF sulfasalazine 500 mg tablet,delayed release (DR/EC) 0.5 g PO BID carvedilol [Coreg] 25 mg tablet 25 mg PO BID Qty: 60 0RF Rx Instructions: must administer with a meal/food furosemide 40 mg tablet 40 mg PO BID aspirin 81 mg Tablet,Delayed Release (Dr/Ec) 81 mg PO DAILY@0700 insulin aspart U-100 [Novolog FlexPen U-100 Insulin] 100 unit/mL (3 mL) insulin pen 5 unit SUBCUT DAILY PRN (Reason: High Blood Sugar) Rx Instructions: PT USING SLIDING SCALE ONLY, NOW. isosorbide mononitrate 30 mg Tablet Extended Release 24 Hr 30 mg PO DAILY Qty: 30 3RF albuterol sulfate 90 mcg/actuation HFA aerosol inhaler 2 inh INHALATION Q4H PRN (Reason: shortness of breath or wheezing) Qty: 18 0RF Discharge Orders: Discharge ED (Routine); Ordered 02/02/23 Ordered By: Garth Solitario Referrals: Cholo Kelsey MD [Physician] - 1-3 days Bill Prescott DO [Primary Care Provider] - Discharge Diet: Advance as tolerated Discharge Activity: Resume usual activity Patient Instructions: Chest Pain (ED) Coding Level of Care Code ED Director Data Architecture for Georges Sanderson
[2023-02-01 23:11] VITALS: BP 173/87; PULSE 108; RESP 16; O2SAT 94
[2023-02-01 23:12] VITALS: BP 119/56; PULSE 101; RESP 18; O2SAT 90
[2023-02-01] MEDS: aspirin 81 mg Chew Tablet 324 MG PO (23:16)
[2023-02-01] MEDS: nitroglycerin 0.4 mg sublingual Tablet SUBLINGUAL (23:17)
[2023-02-01 23:20] LABS: Basophils # 0.1 10^3/uL (0.0-0.1); Basophils % 0.8 %; Eosinophils # 0.5 10^3/uL (0.0-0.8); Eosinophils % 5.6 %; Hematocrit 45.4 % (42.0-52.0); Lymphocytes # 1.2 10^3/uL (0.8-4.8); Lymphocytes % 12.6 %; Mean Corpuscular Hemoglobin 30.1 pg (28.0-34.0); Mean Corpuscular Volume 91.2 fl (80-94); Mean Platelet Volume 10.1 fL (7.4-10.4); Monocytes # 0.9 10^3/uL (0.2-0.9); Monocytes % 9.4 %; Neutrophils # 6.73 10^3/uL (1.8-7.7); Neutrophils % 71.3 %; Nucleated Red Blood Cells % 0 %; Platelet Count 249 10^3/cmm (130-400); Red Blood Count 4.98 10^6/uL (4.1-5.3); Red Cell Distribution Width 14.5 % (12.1-15.1); White Blood Count 9.5 10^3/uL (4.0-10.0)
[2023-02-01 23:38] LABS: Troponin(5th) Baseline 42 ng/L (0-15)
[2023-02-01 23:39] LABS: INR 0.99 (0.8-1.2)
[2023-02-01 23:41] LABS: Alanine Aminotransferase 16 U/L (0-41); Albumin Level 4.3 g/dL (3.5-5.2); Alkaline Phosphatase 68 U/L (40-130); Aspartate Amino Transferase 17 U/L (0-40); Blood Urea Nitrogen 27 mg/dL (8-23); Carbon Dioxide 25 mmol/L (22-29); Chloride 98 mmol/L (98-107); Globulin 3.1 g/dL (1.3-4.6); Glomerular Filtration Rate 50.1 mL/min (90-130); Glucose 231 mg/dL (65-115); Osmolality Calculated 292 mOsm/kg (285-295); Sodium 135 mmol/L (136-145); Total Bilirubin 0.3 mg/dL (0.15-1.2); Total Protein 7.4 g/dL (6.6-8.7)
[2023-02-01 23:42] VITALS: BP 128/58; PULSE 97; RESP 15; O2SAT 90
[2023-02-01 23:57] VITALS: BP 154/69; PULSE 97; RESP 22; O2SAT 88
[2023-02-02 00:12] VITALS: BP 144/52; PULSE 93; RESP 15; O2SAT 88
[2023-02-02 00:45] VITALS: BP 155/71; PULSE 89; RESP 15; O2SAT 88
[2023-02-02 01:01] LABS: Troponin 5 2HR 46.62 ng/L (0-15)
--- NOTE | 2023-02-02 01:02 | ECG_ITS ---
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 Measurements Intervals [place] Rate: 89 P: 50 PA: 253 QRS: -4 QRSD: 156 T: 50 QT: 405 QTc: 494 Interpretive Statements SINUS RHYTHM WITH FIRST DEGREE AV BLOCK POSSIBLE LEFT ATRIAL ENLARGEMENT [-0.1mV P-WAVE IN V1/V2] INDETERMINATE AXIS RIGHT BUNDLE BRANCH BLOCK [120+ ms QRS DURATION, UPRIGHT V1, 40+ ms S IN I/aVL/V4/V5/V6] SEPTAL MYOCARDIAL INFARCTION , OF INDETERMINATE AGE [40+ ms Q WAVE IN V1/V2] Compared to ECG 02/01/2023 23:07:17 First degree AV block now present ST (T wave) deviation no longer present Myocardial infarct finding still present Electronically Signed On 02-02-2023 14:12:27 CDT by Manjeet Soares M.D. [id number]
[2023-02-02 01:04] LABS: Troponin 5 2HR Delta 4.62 ABS# (0-10)
[2023-02-02 01:25] VITALS: BP 146/63; PULSE 90; RESP 15; O2SAT 88
== END 2023-02-02 01:26 | disposition home or self-care (01) ==
PROVIDERS: Emergency Provider Emergency Medicine; PCP Emergency Medicine Emergency Medical Services
DX: R07.9 Chest pain, unspecified (principal); Z79.02 Long term (current) use of antithrombotics/antiplatelets; Z79.82 Long term (current) use of aspirin; Z79.84 Long term (current) use of oral hypoglycemic drugs; Z79.4 Long term (current) use of insulin; Z87.891 Personal history of nicotine dependence; Z95.1 Presence of aortocoronary bypass graft; I13.0 Hypertensive heart and chronic kidney disease with heart failure and stage 1 through stage 4 chronic kidney disease, or unspecified chronic kidney disease; E11.22 Type 2 diabetes mellitus with diabetic chronic kidney disease; N18.9 Chronic kidney disease, unspecified; I50.9 Heart failure, unspecified; E78.5 Hyperlipidemia, unspecified; I25.2 Old myocardial infarction; Z95.5 Presence of coronary angioplasty implant and graft
CPT/HCPCS: 71045; 80053; 84484; 85025; 85610; 93005; 99285

== ENCOUNTER → 2023-02-15 10:39 | Outpatient (BNVA) | payer OTHER, SELFPAY | PROVIDERS: PCP Emergency Medicine Emergency Medical Services; Visit Provider Nurse Practitioner Family | DX: I25.709 Atherosclerosis of coronary artery bypass graft(s), unspecified, with unspecified angina pectoris (principal); Z87.891 Personal history of nicotine dependence; I13.0 Hypertensive heart and chronic kidney disease with heart failure and stage 1 through stage 4 chronic kidney disease, or unspecified chronic kidney disease; E11.22 Type 2 diabetes mellitus with diabetic chronic kidney disease; N18.9 Chronic kidney disease, unspecified; I50.33 Acute on chronic diastolic (congestive) heart failure; Z79.4 Long term (current) use of insulin | CPT/HCPCS: 99213 ==

== ENCOUNTER 2023-02-28 20:00 | Outpatient (CLI) | payer OTHER, SELFPAY | END 2023-02-28 20:01 | disposition home or self-care (01) | LOC: SLEEP 03-01 04:59 | PROVIDERS: PCP Emergency Medicine Emergency Medical Services; Visit Provider Emergency Medicine Emergency Medical Services | DX: G47.33 Obstructive sleep apnea (adult) (pediatric) (principal); G47.36 Sleep related hypoventilation in conditions classified elsewhere; R06.83 Snoring; R53.83 Other fatigue | CPT/HCPCS: 95811 ==

== ENCOUNTER 2023-03-22 10:05 | Outpatient (CLI) | payer OTHER, SELFPAY ==
[2023-03-22 10:40] LABS: Basophils # 0.1 10^3/uL (0.0-0.1); Basophils % 0.8 %; Eosinophils # 0.6 10^3/uL (0.0-0.8); Eosinophils % 5.3 %; Hematocrit 44.5 % (42.0-52.0); Hemoglobin 14.2 g/dL (11.7-16.6); Lymphocytes % 8.9 %; Mean Corpuscular HGB Conc 31.9 g/dL (30.0-36.0); Mean Corpuscular Hemoglobin 30.3 pg (28.0-34.0); Mean Corpuscular Volume 95.1 fl (80-94); Mean Platelet Volume 10.1 fL (7.4-10.4); Monocytes # 0.8 10^3/uL (0.2-0.9); Monocytes % 7.9 %; Neutrophils # 8.17 10^3/uL (1.8-7.7); Neutrophils % 76.5 %; Nucleated Red Blood Cells % 0 %; Platelet Count 236 10^3/cmm (130-400); Red Blood Count 4.68 10^6/uL (4.1-5.3); Red Cell Distribution Width 15.9 % (12.1-15.1); White Blood Count 10.7 10^3/uL (4.0-10.0)
[2023-03-22 11:01] LABS: Alanine Aminotransferase 12 U/L (0-41); Albumin Level 4.1 g/dL (3.5-5.2); Alkaline Phosphatase 73 U/L (40-130); Anion Gap 15.1 (5-19); Aspartate Amino Transferase 19 U/L (0-40); Blood Urea Nitrogen 31 mg/dL (8-23); C Reactive Protein 9.3 mg/L (0.0-4.9); Calcium 9.3 mg/dL (8.5-10.5); Carbon Dioxide 29 mmol/L (22-29); Chloride 97 mmol/L (98-107); Globulin 3.2 g/dL (1.3-4.6); Glomerular Filtration Rate 50.1 mL/min (90-130); Glucose 115 mg/dL (65-115); Osmolality Calculated 289 mOsm/kg (285-295); Potassium 5.1 mmol/L (3.5-5.1); Sodium 136 mmol/L (136-145); Total Bilirubin 0.6 mg/dL (0.15-1.2); Total Protein 7.3 g/dL (6.6-8.7)
[2023-03-22 11:27] LABS: Erythrocyte Sedimentation Rate 20 mm/hr (0-10)
== END 2023-03-22 10:06 | disposition home or self-care (01) ==
PROVIDERS: PCP Emergency Medicine Emergency Medical Services; Visit Provider Internal Medicine
DX: R70.0 Elevated erythrocyte sedimentation rate (principal)
CPT/HCPCS: 36415; 80053; 85025; 85651; 86140

== ENCOUNTER → 2023-03-24 09:59 | Outpatient (BNVA) | payer OTHER, SELFPAY | PROVIDERS: PCP Emergency Medicine Emergency Medical Services; Visit Provider Internal Medicine | DX: R70.0 Elevated erythrocyte sedimentation rate (principal); M79.10 Myalgia, unspecified site; M06.00 Rheumatoid arthritis without rheumatoid factor, unspecified site; I77.9 Disorder of arteries and arterioles, unspecified; N18.32 Chronic kidney disease, stage 3b | CPT/HCPCS: 99214 ==

== ENCOUNTER → 2023-03-29 09:09 | Outpatient (BNVA) | payer OTHER, SELFPAY | PROVIDERS: PCP Emergency Medicine Emergency Medical Services; Visit Provider Podiatrist Foot & Ankle Surgery | DX: E11.42 Type 2 diabetes mellitus with diabetic polyneuropathy (principal); L60.8 Other nail disorders; L84 Corns and callosities; L60.3 Nail dystrophy; L85.3 Xerosis cutis; M20.41 Other hammer toe(s) (acquired), right foot; Z79.4 Long term (current) use of insulin; Z79.84 Long term (current) use of oral hypoglycemic drugs | CPT/HCPCS: 11056; 11721 ==

== ENCOUNTER → 2023-03-30 13:25 | Outpatient (BNVA) | payer OTHER, SELFPAY | PROVIDERS: PCP Emergency Medicine Emergency Medical Services; Visit Provider Internal Medicine Pulmonary Disease | DX: J44.9 Chronic obstructive pulmonary disease, unspecified (principal); J84.112 Idiopathic pulmonary fibrosis; J98.4 Other disorders of lung; D72.19 Other eosinophilia; Z91.09 Other allergy status, other than to drugs and biological substances; Z87.891 Personal history of nicotine dependence; Z95.1 Presence of aortocoronary bypass graft | CPT/HCPCS: 99214 ==

== ENCOUNTER 2023-04-07 13:17 | Outpatient (CLI) | payer OTHER, SELFPAY ==
--- NOTE | 2023-04-07 13:25 | USCV_ITS ---
Torey Kaba Age: 72 Gender: M : 1950 Exam Date: 04/07/2023 13:38 Ordering Phys: Bill Prescott DO Technologist: JOSE Exam Location: [facility] [place] Indication: Leg Pain HISTORY: Lower extremity pain. PROCEDURES: Venous duplex imaging was performed in bilateral lower extremities. The following venous structures were evaluated: common femoral vein, profunda vein, proximal portion of the greater saphenous vein, superficial femoral vein, and the popliteal vein. In addition, the posterior tibial and peroneal trunk were evaluated. Serial compression, augmentation maneuvers, and spectral Doppler flow evaluation were performed. FINDINGS: No evidence of DVT seen in any vessel visualized at this time. CONCLUSIONS No evidence of right lower extremity DVT. No evidence of left lower extremity DVT. Magdaleno Richey MD (Electronically Signed) Final Date: 07 April 2023 16:49 S
== END 2023-04-07 13:18 | disposition home or self-care (01) ==
PROVIDERS: PCP Emergency Medicine Emergency Medical Services; Visit Provider Emergency Medicine Emergency Medical Services
DX: M79.605 Pain in left leg (principal); M79.604 Pain in right leg
CPT/HCPCS: 93970

== ENCOUNTER 2023-04-19 11:14 | Outpatient (CLI) | payer OTHER, SELFPAY ==
--- NOTE | 2023-04-19 12:30 | CT_ITS ---
WS: [id number] CT CHEST CT-HIGH RESOLUTION, NONCONTRAST. HISTORY: Interstitial lung disease. Technique: High-resolution chest CT is performed in inspiration, expiration, supine and prone positio justin. All CT scans at [facility] use at least one of these dose optimization techniques: automated exposure control; mA and/or kV adjustment per patient size (includes targeted exams where dose is mat ched to clinical indication); or iterative reconstruction. DLP: 1848.12 mGy.cm COMPARISON: 11/15/2022 Findings: Lung volumes are decreased. Mild elevation of the LEFT diaphragm with pleural thickening. R eidentified is cystic disease in the periphery of the posterior RIGHT lower lobe. This could be sukhjinder y changes of honeycombing. This is not quite as multi layered is typically seen with honeycombing. Mi ld traction bronchiectasis in the lower lung mueller. There is mild hazy groundglass attenuation and c hronic emphysematous changes. No mass. There are numerous but small mediastinal and hilar lymph nodes. Atherosclerosis aorta. Mild dilatatio n of the pulmonary artery. Marked cardiomegaly. Prior CABG. Subtle area of low attenuation in the pos terior RIGHT lobe of the liver measures 1 cm. Hounsfield units are slightly elevated. CT/CT chest wo con [id number] Impression: 1. Stable appearance of the lungs since 11/15/2022. Suspected early UIP changes . Honeycomb is not as advanced and multilayered is typically seen but this coul d represent early unchanged disease. 2. No pneumonia. 3. Prior CABG. 4. Low-attenuation mass measuring 3.1 cm in the posterior RIGHT lobe of the li rosendo needs further evaluation. Recommend ultrasound evaluation. This may not be evident by ultrasound due to its position. Dedicated CT liver mass protocol may be necessary if this is not visible by ultrasound.
== END 2023-04-19 11:15 | disposition home or self-care (01) ==
LOC: RT 11:16
PROVIDERS: PCP Emergency Medicine Emergency Medical Services; Visit Provider Internal Medicine Pulmonary Disease
DX: J84.112 Idiopathic pulmonary fibrosis (principal); J98.4 Other disorders of lung; Z95.1 Presence of aortocoronary bypass graft; R16.0 Hepatomegaly, not elsewhere classified
CPT/HCPCS: 71250

== ENCOUNTER 2023-04-26 07:36 | Outpatient (CLI) | payer OTHER, SELFPAY ==
--- NOTE | 2023-04-26 07:51 | US_ITS ---
WS: [id number] RIGHT UPPER QUADRANT ULTRASOUND HISTORY: STEATOSIS OF LIVER COMPARISON: 05/24/2011, 05/06/2021, chest CT 04/19/2023 Liver: 18.2 cm in length. Mildly enlarged liver. Moderate coarse echotexture throughout. Cystic mass is identified in the posterior RIGHT lobe of the liver measuring 4.3 x 3.3 cm. On several images ther e is debris or tumor associated with the cyst although no increased vascularity. This will need to be further evaluated by CT. This is not a simple cyst. Portal Vein: Normal hepatopetal flow with monophasic waveform. Gallbladder: Normally distended gallbladder with no stones or wall thickening. CBD: 0.3 cm Pancreas: Completely obscured. Right kidney: 10.1 cm in length. Normal size. No hydronephrosis. Simple cyst upper pole measures 1.5 x 1.7 x 1.4 cm. Aorta and IVC: Unremarkable abdominal aorta and IVC. No ascites. US/US abdomen limited [id number] IMPRESSION: 1. Cystic mass in the posterior RIGHT lobe of the liver is identified by ultra sound measuring 4.3 x 3.3 cm. This is not a simple cyst. There are low level ec hoes within the mass. No increased vascularity. This could be artifact but furt her evaluation is recommended. Recommend follow-up three-phase hepatic CT with mass protocol. 2. Negative gallbladder. 3. Simple cyst upper pole RIGHT kidney.
== END 2023-04-26 07:37 | disposition home or self-care (01) ==
PROVIDERS: PCP Emergency Medicine Emergency Medical Services; Visit Provider Nurse Practitioner
DX: K76.0 Fatty (change of) liver, not elsewhere classified (principal); R16.0 Hepatomegaly, not elsewhere classified
CPT/HCPCS: 76705

== ENCOUNTER 2023-05-09 08:05 | Outpatient (CLI) | payer OTHER, SELFPAY ==
[2023-05-09 08:13] VITALS: BP 136/79
[2023-05-09 08:27] VITALS: PULSE 81; RESP 18; O2SAT 94
[2023-05-09] MEDS: albuterol 2.5 mg/3 mL Neb INHALATION (08:27)
[2023-05-09 08:32] VITALS: PULSE 74
== END 2023-05-09 08:06 | disposition home or self-care (01) ==
PROVIDERS: PCP Emergency Medicine Emergency Medical Services; Visit Provider Internal Medicine Pulmonary Disease
DX: R06.02 Shortness of breath (principal); R94.2 Abnormal results of pulmonary function studies
CPT/HCPCS: 94060; 94618; 94726; 94729; J7613

== ENCOUNTER 2023-06-01 12:07 | Outpatient (CLI) | payer OTHER, SELFPAY ==
--- NOTE | 2023-06-01 12:14 | CT_ITS ---
WS: [id number] CT ABDOMEN AND PELVIS WITH AND WITHOUT CONTRAST HISTORY: ABNORMAL FINDINGS - IMAGING OF LIVER BILIARY TRACT TECHNIQUE: Unenhanced 3 mm axial imaging first performed through the abdomen. Three-phase hepatic CT. Post contrast imaging through the abdomen and pelvis. Oral contrast has been provided. Sagittal and coronal reformats are submitted. All CT scans at [facility] use at least one of these dose o ptimization techniques: automated exposure control; mA and/or kV adjustment per patient size (include s targeted exams where dose is matched to clinical indication); or iterative reconstruction. CONTRAST: Omnipaque 350; 95 mL IV. DLP: 2830.88 mGy.cm COMPARISON: Prior CT 03/25/2022, ultrasound 04/26/[address] 04/19/2023 Moderate cardiomegaly small bilateral pleural effusions with compressive atelectasis and interstitial thickening at the lung bases. Liver: Normal size liver. There is a focal area of decreased attenuation in the posterior RIGHT lobe of the liver. This corresponds to the abnormality that has been recently described by ultrasound. Thi s could potentially be an area of focal hepatic steatosis but there is a been a slight change in cont our and bulge of the liver. No significant displacement of the adjacent vessels. There is only mild e nhancement on the postcontrast imaging. Margins of this mass are very slightly lobulated. This is not a hemangioma. No would additional mass within the liver. Normal portal vein. Gallbladder slightly contracted with mild wall thickening. There is small amount of adjacent soft tis mervat stranding. Negative spleen and pancreas. Normal RIGHT adrenal gland. LEFT adrenal adenoma 1.4 cm. There are bilateral low-attenuation masses within each kidney. Some of these are too small to charac terize. The most concerning mass measures 1.6 cm in the superior pole of the RIGHT kidney. This is no t a simple cyst. Could potentially be a complex cyst. There is only mild enhancement. Atherosclerotic plaque throughout the aorta. 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 Near complete occlusion of the SMA. There is a paucity of vascularity in the proximal SM A with limited flow distally. Mild dilatation of the proximal FABIOLA. FABIOLA is patent. Ventral abdominal w all hernia contains fat only. No GI tract obstruction. Negative urinary bladder. Prostate gland is en larged with central calcifications. 3 mm anterolisthesis of L4 and L5. IMPRESSION: 1. Masslike attenuation with minimal enhancement in the posterior RIGHT lobe of the liver measures 3. 6 x 3.5 x 4.6 cm. This corresponds to the recent findings seen by ultrasound and CT. This is a very n onspecific mass and could potentially be a focal area of hepatic steatosis. Margins are slightly lobu lated. Further evaluation is necessary to exclude primary malignancy. This does not enhance as a typi winston hepatocellular carcinoma would enhance. This is not a hemangioma. Metastatic disease and hepatic steatosis should be considered. 2. There is an additional indeterminate mass in the superior pole RIGHT kidney. 3. Consider additional evaluation of both the liver and RIGHT kidney. PET/CT imaging may be the most helpful at this time. 4. Mildly contracted gallbladder with mild wall thickening and adjacent stranding. May be on the basi s of hepatocellular disease. Early acute cholecystitis may appear similar. 5. Marked atherosclerotic changes within the aorta. 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 Patient is at risk for gastrointestinal ischemia. 6. Ventral abdominal wall hernia contains fat.
[2023-06-01 12:39] LABS: Blood Urea Nitrogen 33 mg/dL (8-23); Glomerular Filtration Rate 42.9 mL/min (90-130)
[2023-06-01] MEDS: iohexol 350 mg/mL 500 mL Btl (per mL) IV (12:54)
== END 2023-06-01 12:08 | disposition home or self-care (01) ==
PROVIDERS: PCP Emergency Medicine Emergency Medical Services; Visit Provider Nurse Practitioner
DX: R93.2 Abnormal findings on diagnostic imaging of liver and biliary tract (principal); R16.0 Hepatomegaly, not elsewhere classified; N28.89 Other specified disorders of kidney and ureter; I70.0 Atherosclerosis of aorta; K55.1 Chronic vascular disorders of intestine
CPT/HCPCS: 74178; 82565; 84520; Q9967

== ENCOUNTER 2023-06-03 13:23 | Emergency (ER) | payer OTHER, SELFPAY ==
[2023-06-03 13:37] VITALS: BP 125/65; PULSE 74; RESP 20; TEMP 36.6; O2SAT 94; BMI 30.1
--- NOTE | 2023-06-03 14:09 | XRR_ITS ---
PROCEDURE INFORMATION: Exam: XR Chest Exam date and time: 06/03/2023 2:26 PM Age: 73 years old Clinical indication: Cough and dyspnea; Additional info: Dyspnea/cough TECHNIQUE: Imaging protocol: Radiologic exam of the chest. Views: 1 view. COMPARISON: CT chest con [id number] 04/19/2023 12:09 PM FINDINGS: Lungs: There is opacification of the inferior left hemithorax. Mild nonspecific opacity in both lung bases, greater on the left. Pleural spaces: The left lateral costophrenic sulcus is blunted. No pneumothorax. Heart/Mediastinum: The cardiac silhouette is enlarged and partially obscured. Bones/joints: Sternal wires are present. There is no displacement to suggest sternal dehiscence. XR/XR chest 1V portable [id number] IMPRESSION: 1. Increased bilateral lower lung opacity since 02/01/2023. Some component of atelectasis is likely present. Superimposed infection or edema may be present. 2. Blunting of the left lateral costophrenic sulcus is consistent with pleural thickening and associated volume loss seen on chest CT 04/19/2023. Pleural effusion is not excluded.
--- NOTE | 2023-06-03 14:09 | ECG_ITS ---
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 Measurements Intervals [place] Rate: 72 P: 101 IA: 236 QRS: -19 QRSD: 157 T: -51 QT: 433 QTc: 476 Interpretive Statements SINUS RHYTHM WITH FIRST DEGREE AV BLOCK INDETERMINATE AXIS RIGHT BUNDLE BRANCH BLOCK [120+ ms QRS DURATION, UPRIGHT V1, 40+ ms S IN I/aVL/V4/V5/V6] SEPTAL MYOCARDIAL INFARCTION , PROBABLY OLD [40+ ms Q WAVE IN V1/V2] MODERATE T-WAVE ABNORMALITY, CONSIDER LATERAL ISCHEMIA [-0.1+ mV T-WAVE IN I/aVL/V5/V6] MODERATE T-WAVE ABNORMALITY, CONSIDER INFERIOR ISCHEMIA [-0.1+ mV T-WAVE IN II/aVF] Compared to ECG 02/02/2023 00:59:43 T-wave abnormality now present Possible ischemia now present Myocardial infarct finding still present Electronically Signed On 06-04-2023 10:51:57 CDT by Manjeet Soares M.D. [id number]
--- NOTE | 2023-06-03 14:12 | ED_ITS ---
HPI - SOB/Dyspnea General: Chief Complaint: Shortness of Breath/Dyspnea Stated Complaint: sob Time Seen by Provider: 06/03/23 14:08 Source: patient Mode of arrival: ambulatory History of Present Illness: HPI Narrative: 73-year-old male presents emergency room with complaints of shortness of breath and wheezing increasing oxygen utilized to help. Patient is on supplemental oxygen last week she has had to wear continuously noticed increasing shortness of breath minimal activity. Has a known history of coronary artery disease as well. Has not had any significant chest pain. No fever sweats or chills he has had his persistent normal baseline productive cough. He states his temperatures actually been below normal he is not have a fever at home. MD elicited complaint: shortness of breath and cough Pertinent past history: COPD Onset (ago): week(s) Timing: constant Severity: moderate Exacerbating factors: exertion Relieving factors: oxygen, rest and bronchodilators Known history of: COPD Associated symptoms: Reports chest congestion; Deny abdominal pain, chest pain, cough, diaphoresis, dizziness, extremity pain, fever(s), hemoptysis, lightheadedness, myalgias, nausea, orthopnea, palpitations, paresthesias, polydipsia, polyuria, rash, sense of impending doom, syncope or vomiting Review of Systems Const: Denies: fever(s), chills or diaphoresis ENMT: Denies: throat pain, ear or mastoid pain, nasal discharge or nasal congestion Card: Denies: chest pain, palpitations, lightheadedness, syncope or orthopnea Resp: Reports: dyspnea, productive cough (At normal baseline), wheezing and chest congestion; Denies: hemoptysis GI: Denies: abdominal pain, nausea or vomiting : Denies: flank pain, dysuria, urinary frequency or urinary urgency Musc: Denies: extremity pain Skin/Breast: Denies: rash or pruritus Neuro: Denies: dizziness Endo: Denies: polyuria or polydipsia PFSH ED PFSH: Medical History Acute kidney injury Acute on chronic diastolic (congestive) heart failure Anemia Arthralgia Atherosclerosis of coronary artery of [place] heart without angina pectoris CHF exacerbation CKD (chronic kidney disease) Community acquired pneumonia COPD (chronic obstructive pulmonary disease) Diabetes Hyperlipidemia Hypertension Normochromic normocytic anemia NSTEMI (non-ST elevated myocardial infarction) Pancreatic cyst Pancreatitis Pleural effusion Pneumonia Restrictive lung disease Sacroiliac dysfunction Sepsis Umbilical hernia, incarcerated Surgical History H/O esophagogastroduodenoscopy History of colonoscopy with polypectomy History of coronary angioplasty with insertion of stent Hx of CABG Family History Brother CAD (coronary artery disease) Diabetes Lung disease Sister CAD (coronary artery disease) Diabetes Cancer Lung disease Father CAD (coronary artery disease) Diabetes Lung disease Mother CAD (coronary artery disease) Diabetes Stroke Brother CAD (coronary artery disease) Diabetes Lung disease Brother CAD (coronary artery disease) Diabetes Sister CAD (coronary artery disease) Diabetes Lung disease Sister CAD (coronary artery disease) Diabetes Sister CAD (coronary artery disease) Diabetes Daughter Chronic kidney disease (CKD) Diabetes Denies family history of Clotting disorder Dementia Suicide Anesthesia complication Bleeding disorder Social History Smoking and tobacco status: former smoker Quit status (tobacco): has quit using tobacco Year quit tobacco: 1983 [id number] Second hand smoke exposure: No Smoking risk assessment/counseling performed?: Yes Alcohol intake: former Substance/Drug Use: never Adopted: No Caregiver/support person: Yes Lives independently: Yes Household members: spouse Housing: House Marital status: service: Yes Current occupational status: retired Pets and animals: No Leisure activites: exercise Sexually active: No Do you think of yourself as: Straight/Heterosexual Current gender identity: Male Mayra/Samaritan: Zoroastrian Special mayra needs: No Agree to transfusion: No Financial difficulty paying for basics: Decline to Answer Physical Exam Const: GENERAL APPEARANCE: cooperative and comfortable ORIENTATION/CONSCIOUSNESS: Yes awake, Yes oriented to person, Yes oriented to place and Yes oriented to time HENMT: COMMON NORMALS: normocephalic, atraumatic and hearing grossly normal bi laterally HEAD & SCALP: normocephalic and atraumatic Resp: COMMON NORMALS: normal respiratory effort, No retractions and No use of accessory muscles AUSCULTATION: rhonchi and wheezes Cardio: COMMON NORMALS: regular rate, regular rhythm and No murmurs present (Cardio) RATE: regular rate RHYTHM: regular rhythm GI: COMMON NORMALS: Soft to palpation and No hepatosplenomegaly present AUSCULTATION: Yes normoactive bowel sounds PALPATION: Yes Soft to palpation, No Tenderness to palpation present (GI), No Guarding due to palpation present (GI) and Yes No hepatosplenomegaly present Extremity: COMMON NORMALS: normal to inspection, capillary refill normal, no clubbing, cyanosis or edema, no calf tenderness and no pedal edema Neuro: SENSORIUM/ORIENTATION: Yes oriented to person, Yes oriented to place and Yes oriented to time Skin: COMMON NORMALS: no rashes or lesions noted GENERAL SKIN EXAM: no rashes or lesions noted Course Vital Signs: Vital signs: Vital Signs Temperature 97.9 F 06/03/23 13:37 Pulse Rate 74 06/03/23 13:37 Respiratory Rate 20 H 06/03/23 13:37 Blood Pressure 125/65 06/03/23 13:37 Pulse Oximetry 94 06/03/23 13:37 Oxygen Delivery Me thod Nasal Cannula 06/03/23 13:37 Oxygen Flow Rate 5 06/03/23 13:37 MDM - SOB/Dyspnea Medical Decision Making Exacerbation COPD. Chest x-ray I think is more likely more atelectasis but he is having what he thinks is a slight change in his mucus production of his cough is a little bit thicker we will put him on a course of antibiotics as well as a steroid taper aggressive use of his albuterol treatments follow-up with Dr. Villagran next week continue all of his other medications. Medical Records I reviewed the patient's medical records. Lab Data I reviewed the patient's lab results. 06/03/23 14:23 06/03/23 14:23 Labs/Radiology: Radiology Impressions Chest X-Ray 06/03/23 14:09 IMPRESSION: 1. Increased bilateral lower lung opacity since 02/01/2023. Some component of atelectasis is likely present. Superimposed infection or edema may be present. 2. Blunting of the left lateral costophrenic sulcus is consistent with pleural thickening and associated volume loss seen on chest CT 04/19/2023. Pleural effusion is not excluded. Laboratory Results WBC 8.28 10^3/uL (3.29-11.43) 06/03/23 14:23 RBC 4.23 10^6/uL (3.85-5.65) 06/03/23 14:23 Hgb 12.50 g/dL (11.27-16.99) 06/03/23 14:23 Hct 39.7 % (37-53) 06/03/23 14:23 MCV 93.9 fl (82-101) 06/03/23 14:23 MCH 29.6 pg (27-33) 06/03/23 14:23 MCHC 31.5 g/dL (30-55) 06/03/23 14:23 RDW 16.2 % (12.1-15.1) H 06/03/23 14:23 Plt Count 220 10^3/cmm (157-399) 06/03/23 14:23 MPV 10.4 fL (7.4-10.4) 06/03/23 14:23 Neut % (Auto) 77.4 % 06/03/23 14:23 Lymph % (Auto) 7.7 % 06/03/23 14:23 [place] % (Auto) 7.7 % 06/03/23 14:23 Eos % (Auto) 6.3 % 06/03/23 14:23 Baso % (Auto) 0.7 % 06/03/23 14:23 Neut # (Auto) 6.40 10^3/uL (1.8-7.7) 06/03/23 14:23 Lymph # (Auto) 0.6 10^3/uL (0.8-4.8) L 06/03/23 14:23 [place] # (Auto) 0.6 10^3/uL (0.2-0.9) 06/03/23 14:23 Eos # (Auto) 0.5 10^3/uL (0.0-0.8) 06/03/23 14:23 Baso # (Auto) 0.1 10^3/uL (0.0-0.1) 06/03/23 14:23 Nucleated RBC % (auto) 0 % 06/03/23 14: Nucleated RBCs # 0.0 /100WBC 06/03/23 14:23 Specimen Type Arterial 06/03/23 14:08 Sample Site Brachial, right 06/03/23 14:08 ABG pH 7.42 (7.35-7.45) 06/03/23 14:08 ABG pCO2 39.9 mmHg (35-45) 06/03/23 14:08 ABG pO2 70.4 mmHg (80.0-100.0) L 06/03/23 14:08 ABG HCO3 25.6 mmol/L (22-26) 06/03/23 14:08 ABG O2 Saturation 94.5 06/03/23 14:08 ABG Base Excess 1.0 mmol/L (-2.0-2.0) 06/03/23 14:08 Sam Test Pos 06/03/23 14:08 A-a O2 Gradient 14.2 mmHg (5-10) H 06/03/23 14:08 Hematocrit 39.5 % (42-52) L 06/03/23 14:08 Hgb O2 Saturation 92.4 % (95-100) L 06/03/23 14:08 Carboxyhemoglobin 1.9 %THgb (0.4-20.1) 06/03/23 14:08 Methemoglobin 0.3 % (0.4-1.5) L 06/03/23 14:08 Total Hemoglobin 12.9 g/dL (14-18) L 06/03/23 14:08 Sodium 138.0 mmol/L (131-143) 06/03/23 14:08 Potassium 4.2 mmol/L (3.5-5.0) 06/03/23 14:08 Glucose 100.0 mg/dL (70-115) 06/03/23 14:08 Ionized Calcium 1.2 mmol/L (1.1-1.4) 06/03/23 14:08 O2 Delivery Device Nc 06/03/23 14:08 O2 Liters/Min 3.0 % 06/03/23 14:08 FiO2 32.0 % 06/03/23 14:08 Lacquer Sizer ID [place] 06/03/23 14:08 Sodium 137 mmol/L (136-145) 06/03/23 14:23 Potassium 4.5 mmol/L (3.5-5.1) 06/03/23 14:23 Chloride 100 mmol/L (98-107) 06/03/23 14:23 Carbon Dioxide 27 mmol/L (22-29) 06/03/23 14:23 Anion Gap 14.5 (5-19) 09/09/23 14:23 BUN 38 mg/dL (8-23) H 06/03/23 14:23 Creatinine 1.6 mg/dL (0.7-1.2) H 06/03/23 14:23 GFR Calculation Not Reportable 06/03/23 14:23 Glucose 98 mg/dL (65-115) 06/03/23 14:23 Calculated Osmolality 293 mOsm/kg (285-295) 06/03/23 14:23 Calcium 9.3 mg/dL (8.5-10.5) 06/03/23 14:23 Total Bilirubin 0.9 mg/dL (0.15-1.2) 06/03/23 14:23 AST 16 U/L (0-40) 06/03/23 14:23 ALT 11 U/L (0-41) 06/03/23 14:23 Alkaline Phosphatase 71 U/L (40-130) 06/03/23 14:23 Total Protein 7.2 g/dL (6.6-8.7) 06/03/23 14:23 Albumin 4.3 g/dL (3.5-5.2) 06/03/23 14:23 Globulin 2.9 g/dL (1.3-4.6) 06/03/23 14:23 Discharge Plan Discharge Patient Disposition: Home Clinical Impression: Acute exacerbation of chronic obstructive airways disease Condition: Stable Prescriptions: New doxycycline hyclate 100 mg capsule 100 mg PO BID 10 Days Qty: 20 0RF prednisone 20 mg tablet 20 mg PO TID Qty: 15 0RF Rx Instructions: 1 p.o. 3 times daily x3 days, 1 p.o. twice daily x2 days, 1 p.o. daily x2 days No Action cetirizine 10 mg capsule 10 mg PO DAILY@1800 fluticasone propionate [Allergy Relief (fluticasone)] 50 mcg/actuation spray,suspension 2 spray INTRANASAL DAILY@0700 PRN (Reason: Congestion) Rx Instructions: administer into each nostril amlodipine 5 mg tablet 10 mg PO DAILY metformin 1,000 mg tablet 500 mg PO BID@0700,1800 Hold Instructions: Resume on 07/30/22. May restart the metformin on Monday guaifenesin [Mucinex] 600 mg tablet extended release 12hr 600 mg PO Q12H PRN (Reason: congestion) Qty: 30 2RF vitamin E 200 unit capsule 200 unit PO DAILY hydralazine 25 mg tablet 25 mg PO TID Qty: 90 3RF albuterol sulfate [ProAir HFA] 90 mcg/actuation HFA aerosol inhaler 2 puff inhalation Q6H PRN (Reason: Shortness Of Breath Or Wheezing) clopidogrel 75 mg tablet 75 mg PO DAILY lovastatin 40 mg tablet 20 mg PO BEDTIME methocarbamol 750 mg tablet 750 mg PO Q12H PRN (Reason: Muscle Pain) Lantus U-100 Insulin 38 unit PO BID@0700,1800 Patient Comments: PATIENT TOOK 19 UNITS LAST PM (07-26-22) INSTRUCTED PER REGIONAL SALES LEADER NURSE Satish HBNalini Chest Ayaan-Cough 10-200 mg capsule 1 tab-cap PO Q8H PRN (Reason: Cold Symptoms) valsartan 160 mg tablet 240 mg PO DAILY Qty: 90 3RF ascorbate calcium (vitamin C) 500 mg tablet 500 mg PO DAILY vitamin B complex [B Complex-Vitamin B12] Tablet 1 tab PO DAILY magnesium oxide 400 mg magnesium capsule 400 mg PO DAILY ammonium lactate 12 % lotion 1 applic topical BID Qty: 225 5RF isosorbide mononitrate 30 mg tablet extended release 24 hr 30 mg PO BID Qty: 180 3RF fluticasone propion-salmeterol [Wixela Inhub] 250-50 mcg/dose blister with device 1 inh inhalation BID Qty: 60 3RF (DME) 2 Pairs of Diabetic Shoes With 2 Custom Molded Inserts See Rx Instructions .Route .MEDSUPPLY Qty: 1 0RF Rx Instructions: Directed by [facility] carvedilol [Coreg] 25 mg tablet 25 mg PO BID Qty: 60 0RF Rx Instructions: must administer with a meal/food furosemide 40 mg tablet 40 mg PO BID aspirin 81 mg Tablet,Delayed Release (Dr/Ec) 81 mg PO DAILY@0700 insulin aspart U-100 [Novolog FlexPen U-100 Insulin] 100 unit/mL (3 mL) insulin pen 5 unit SUBCUT DAILY PRN (Reason: High Blood Sugar) Rx Instructions: PT USING SLIDING SCALE ONLY, NOW. Vitamin D3 25 mcg (1,000 unit) Capsule 25 mcg PO DAILY Discharge Orders: Discharge ED (Routine); Ordered 06/03/23 Ordered By: Bull Yu Referrals: Bill Prescott, DO [Primary Care Provider] - Discharge Diet: Usual diet Discharge Activity: Resume usual activity Patient Instructions: Opioid Safety, Pain Management Activity Restrictions/Additional Instructions: Follow-up with Dr. Villagran next week. Use nebulizers regularly at home continue all your other inhaled medications start steroid taper tomorrow antibiotics today. Coding Level of Care Code ED Venereal Disease Investigator for Georges Sanderson
[2023-06-03 14:22] LABS: ABG PCO2 39.9 mmHg (35-45); ABG PH Result 7.42 (7.35-7.45); Alveolar-Arterial Oxygen Gradi 14.2 mmHg (5-10); Arterial Blood Gas Hematocrit 39.5 % (42-52); Blood Gas Allen Test Pos; Blood Gas Operator Identificat MONRO; Blood Gas Sample Site Brachial, right; Blood Gas Sample Type Arterial; Carboxyhemoglobin 1.9 %THgb (0.4-20.1); HCO3 ABG 25.6 mmol/L (22-26); HGB O2 Sat 92.4 % (95-100); Ionized Calcium Level - ABG 1.2 mmol/L (1.1-1.4); Methemoglobin 0.3 % (0.4-1.5); Oxygen Device NC; Oxygen Saturation ABG 94.5; PO2 ABG 70.4 mmHg (80.0-100.0); Potassium Level - ABG 4.2 mmol/L (3.5-5.0); Total Hemoglobin 12.9 g/dL (14-18)
[2023-06-03 14:36] LABS: Basophils # 0.1 10^3/uL (0.0-0.1); Basophils % 0.7 %; Eosinophils # 0.5 10^3/uL (0.0-0.8); Eosinophils % 6.3 %; Hematocrit 39.7 % (37-53); Lymphocytes # 0.6 10^3/uL (0.8-4.8); Lymphocytes % 7.7 %; Mean Corpuscular HGB Conc 31.5 g/dL (30-55); Mean Corpuscular Hemoglobin 29.6 pg (27-33); Mean Corpuscular Volume 93.9 fl (82-101); Mean Platelet Volume 10.4 fL (7.4-10.4); Monocytes # 0.6 10^3/uL (0.2-0.9); Monocytes % 7.7 %; Neutrophils % 77.4 %; Nucleated Red Blood Cells % 0 %; Platelet Count 220 10^3/cmm (157-399); Red Blood Count 4.23 10^6/uL (3.85-5.65); Red Cell Distribution Width 16.2 % (12.1-15.1); White Blood Count 8.28 10^3/uL (3.29-11.43)
[2023-06-03 14:54] LABS: Alanine Aminotransferase 11 U/L (0-41); Albumin Level 4.3 g/dL (3.5-5.2); Alkaline Phosphatase 71 U/L (40-130); Anion Gap 14.5 (5-19); Aspartate Amino Transferase 16 U/L (0-40); Blood Urea Nitrogen 38 mg/dL (8-23); Calcium 9.3 mg/dL (8.5-10.5); Carbon Dioxide 27 mmol/L (22-29); Chloride 100 mmol/L (98-107); Globulin 2.9 g/dL (1.3-4.6); Glucose 98 mg/dL (65-115); Osmolality Calculated 293 mOsm/kg (285-295); Potassium 4.5 mmol/L (3.5-5.1); Sodium 137 mmol/L (136-145); Total Bilirubin 0.9 mg/dL (0.15-1.2); Total Protein 7.2 g/dL (6.6-8.7)
== END 2023-06-03 17:17 | disposition home or self-care (01) ==
PROVIDERS: Emergency Provider Family Medicine; PCP Emergency Medicine Emergency Medical Services
DX: J44.1 Chronic obstructive pulmonary disease with (acute) exacerbation (principal); Z79.84 Long term (current) use of oral hypoglycemic drugs; Z79.02 Long term (current) use of antithrombotics/antiplatelets; Z79.4 Long term (current) use of insulin; Z79.82 Long term (current) use of aspirin; Z87.891 Personal history of nicotine dependence; I13.0 Hypertensive heart and chronic kidney disease with heart failure and stage 1 through stage 4 chronic kidney disease, or unspecified chronic kidney disease; E11.22 Type 2 diabetes mellitus with diabetic chronic kidney disease; N18.9 Chronic kidney disease, unspecified; I50.9 Heart failure, unspecified; E78.5 Hyperlipidemia, unspecified; I25.2 Old myocardial infarction; Z95.1 Presence of aortocoronary bypass graft; Z95.5 Presence of coronary angioplasty implant and graft
CPT/HCPCS: 36415; 36600; 71045; 80051; 80053; 82330; 82805; 85025; 93005; 99285

== ENCOUNTER → 2023-06-23 09:40 | Outpatient (BNVA) | payer OTHER, SELFPAY | PROVIDERS: PCP Emergency Medicine Emergency Medical Services; Visit Provider Internal Medicine Pulmonary Disease | DX: J22 Unspecified acute lower respiratory infection (principal); J47.9 Bronchiectasis, uncomplicated; D72.19 Other eosinophilia; Z95.1 Presence of aortocoronary bypass graft; Z87.891 Personal history of nicotine dependence; R16.0 Hepatomegaly, not elsewhere classified | CPT/HCPCS: 99214 ==

== ENCOUNTER → 2023-06-26 09:06 | Outpatient (BNVA) | payer OTHER, SELFPAY | PROVIDERS: PCP Emergency Medicine Emergency Medical Services; Visit Provider Podiatrist Foot & Ankle Surgery | DX: L60.3 Nail dystrophy; E11.42 Type 2 diabetes mellitus with diabetic polyneuropathy; M20.41 Other hammer toe(s) (acquired), right foot; M20.42 Other hammer toe(s) (acquired), left foot; L84 Corns and callosities; Z79.4 Long term (current) use of insulin; Z79.84 Long term (current) use of oral hypoglycemic drugs | CPT/HCPCS: 11056; 11721 ==

== ENCOUNTER → 2023-07-07 09:55 | Outpatient (BNVA) | payer OTHER, SELFPAY | PROVIDERS: PCP Emergency Medicine Emergency Medical Services; Visit Provider Internal Medicine | DX: M06.00 Rheumatoid arthritis without rheumatoid factor, unspecified site (principal); R70.0 Elevated erythrocyte sedimentation rate; M79.10 Myalgia, unspecified site; N18.32 Chronic kidney disease, stage 3b | CPT/HCPCS: 99214 ==

== ENCOUNTER → 2023-07-11 15:00 | Outpatient (BNVA) | payer OTHER, SELFPAY | PROVIDERS: PCP Emergency Medicine Emergency Medical Services; Visit Provider Internal Medicine Cardiovascular Disease | DX: I25.709 Atherosclerosis of coronary artery bypass graft(s), unspecified, with unspecified angina pectoris (principal); E78.5 Hyperlipidemia, unspecified; I77.9 Disorder of arteries and arterioles, unspecified; I13.0 Hypertensive heart and chronic kidney disease with heart failure and stage 1 through stage 4 chronic kidney disease, or unspecified chronic kidney disease; E11.22 Type 2 diabetes mellitus with diabetic chronic kidney disease; N18.32 Chronic kidney disease, stage 3b; I50.33 Acute on chronic diastolic (congestive) heart failure; Z87.891 Personal history of nicotine dependence; Z79.4 Long term (current) use of insulin | CPT/HCPCS: 99214 ==

== ENCOUNTER 2023-08-13 12:05 | Inpatient (IN) | payer OTHER, SELFPAY ==
[2023-08-13] VITALS (12 sets, daily range): BP systolic 108–124; BP diastolic 53–84; PULSE 70–83; RESP 16–28; TEMP 36.4–36.5; O2SAT 87–95
--- NOTE | 2023-08-13 12:21 | XRR_ITS ---
PROCEDURE INFORMATION: Exam: XR Chest Exam date and time: 08/13/2023 12:24 PM Age: 73 years old Clinical indication: Shortness of breath; Prior surgery; Surgery date: 6+ months; Surgery type: Open heart; Additional info: Dyspnea/cough TECHNIQUE: Imaging protocol: Radiologic exam of the chest. Views: 1 view. COMPARISON: CR (CHEST, ) 06/03/2023 2:26 PM FINDINGS: Lungs: Increased bilateral lower lobe opacities. Pleural spaces: blunted left costophrenic angle. Probable small right pleural effusion. No pneumothorax. Heart/Mediastinum: Heart size is unchanged. Bones/joints: No acute findings. XR/XR chest 1V portable [id number] IMPRESSION: Increased bilateral lower lobe opacities from prior comparison 06/03/2023, potentially reflecting any combination of atelectasis or infiltrate.
--- NOTE | 2023-08-13 12:27 | ECG_ITS ---
[facility] Test Date: 2023-08-13 Pat Name: Torey Kaba Department: Room: Gender: Male Monotyper: : 1950 Requested By: Bull Anguiano Order Number: [id number] Lianna MD: Cholo Kelsey M.D. Measurements Intervals [place] Rate: 77 P: 55 TN: 246 QRS: 46 QRSD: 146 T: 71 QT: 411 QTc: 466 Interpretive Statements SINUS RHYTHM WITH FIRST DEGREE AV BLOCK INDETERMINATE AXIS RIGHT BUNDLE BRANCH BLOCK [120+ ms QRS DURATION, UPRIGHT V1, 40+ ms S IN I/aVL/V4/V5/V6] SEPTAL MYOCARDIAL INFARCTION , PROBABLY OLD [40+ ms Q WAVE IN V1/V2] MODERATE T-WAVE ABNORMALITY, CONSIDER LATERAL ISCHEMIA [-0.1+ mV T-WAVE IN I/aVL/V5/V6] Compared to ECG 06/03/2023 14:09:30 No significant changes Electronically Signed On 08-13-2023 22:07:51 IMPORT EXPORT MANAGER by Cholo Kelsey M.D. [id number]
--- NOTE | 2023-08-13 12:34 | ED_ITS ---
HPI - SOB/Dyspnea General: Chief Complaint: Shortness of Breath/Dyspnea Stated Complaint: SOB Time Seen by Provider: 08/13/23 12:21 Source: patient History of Present Illness: HPI Narrative: 73-year-old male presents to the emergency room with complaints of shortness of breath and increased swelling in his legs. He has a history of COPD and congestive heart failure. Patient also has history of coronary artery disease EF on echo a year ago was 40% with grade 2 diastolic dysfunction he is currently requiring 5 L by nasal cannula maintaining sats in the low 90s. Normally he is on 2 L by nasal cannula. He has had some clear sputum production he is also noticed swelling in his legs and increasing orthopnea. He was seen earlier this week at the primary care doctor's office and started on Zithromax. MD elicited complaint: shortness of breath Pertinent past history: COPD and congestive heart failure Onset (ago): day(s) Timing: constant Severity: moderate Exacerbating factors: lying flat, exertion and coughing Relieving factors: oxygen, rest, bronchodilators and upright position Known history of: COPD and congestive heart failure Associated symptoms: Reports cough; Deny abdominal pain, chest congestion, chest pain or fever(s) Treatment prior to arrival: none and oxygen Review of Systems 2 Const: Denies: fever(s) or chills Card: Denies: chest pain Resp: Denies: dyspnea or chest congestion GI: Denies: abdominal pain : Denies: dysuria, urinary frequency or urinary urgency Musc: Denies: neck pain or back pain Skin/Breast: Denies: rash PFSH ED PFSH: Medical History (Updated 08/13/23 @ 15:01 by Bull Yu DO) Acute kidney injury Acute on chronic diastolic (congestive) heart failure Anemia Arthralgia Atherosclerosis of coronary artery of [place] heart without angina pectoris CHF exacerbation CKD (chronic kidney disease) Community acquired pneumonia COPD (chronic obstructive pulmonary disease) Diabetes Hyperlipidemia Hypertension Normochromic normocytic anemia NSTEMI (non-ST elevated myocardial infarction) Pancreatic cyst Pancreatitis Pleural effusion Pneumonia Restrictive lung disease Sacroiliac dysfunction Sepsis Umbilical hernia, incarcerated Surgical History H/O esophagogastroduodenoscopy History of colonoscopy with polypectomy History of coronary angioplasty with insertion of stent Hx of CABG Family History Brother CAD (coronary artery disease) Diabetes Lung disease Sister CAD (coronary artery disease) Diabetes Cancer Lung disease Father CAD (coronary artery disease) Diabetes Lung disease Mother CAD (coronary artery disease) Diabetes Stroke Brother CAD (coronary artery disease) Diabetes Lung disease Brother CAD (coronary artery disease) Diabetes Sister CAD (coronary artery disease) Diabetes Lung disease Sister CAD (coronary artery disease) Diabetes Sister CAD (coronary artery disease) Diabetes Daughter Chronic kidney disease (CKD) Diabetes Denies family history of Clotting disorder Dementia Suicide Anesthesia complication Bleeding disorder Social History Smoking and tobacco/nicotine status: former use of tobacco/nicotine Quit status (tobacco/nicotine): has quit using Year quit tobacco: 1983 [id number] Second hand smoke exposure: No Alcohol intake: former Substance/Drug Use: never Adopted: No Caregiver/support person: Yes Lives independently: Yes Household members: spouse Housing: House Marital status: service: Yes Current occupational status: retired Pets and animals: No Leisure activites: exercise Sexually active: No Do you think of yourself as: Straight/Heterosexual Current gender identity: Male Mayra/Yazidism: Samaritan Special mayra needs: No Agree to transfusion: No Physical Exam Const: GENERAL APPEARANCE: cooperative and comfortable ORIENTATION/CONSCIOUSNESS: Yes awake, Yes oriented to person, Yes oriented to place and Yes oriented to time HENMT: COMMON NORMALS: normocephalic, atraumatic and hearing grossly normal bilaterally HEAD & SCALP: normocephalic and atraumatic Resp: COMMON NORMALS: normal respiratory effort, No retractions and No use of accessory muscles AUSCULTATION: crackles and wheezes Cardio: COMMON NORMALS: regular rate, regular rhythm and No murmurs present (Cardio) RATE: regular rate RHYTHM: regular rhythm GI: COMMON NORMALS: Soft to palpation and No hepatosplenomegaly present AUSCULTATION: Yes normoactive bowel sounds PALPATION: Yes Soft to palpation, No Tenderness to palpation present (GI), No Guarding due to palpation present (GI) and Yes No hepatosplenomegaly present Extremity: COMMON NORMALS: normal to inspection and capillary refill normal GENERAL: Yes edema Neuro: SENSORIUM/ORIENTATION: Yes oriented to person, Yes oriented to place and Yes oriented to time Skin: COMMON NORMALS: no rashes or lesions noted GENERAL SKIN EXAM: no rashes or lesions noted Course Vital Signs: Vital signs: Vital Signs Temperature 97.7 F 08/13/23 12:19 Pulse Rate 70 08/13/23 14:15 Respiratory Rate 18 08/13/23 14:15 Blood Pressure 120/56 08/13/23 14:15 Pulse Oximetry 95 08/13/23 14:15 Oxygen Delivery Me thod Nasal Cannula 08/13/23 13:00 Oxygen Flow Rate 5 08/13/23 13:00 MDM - SOB/Dyspnea Medical Decision Making Exacerbation CHF patient given Lasix here is oxygen requirement is up 5 to 6 L by nasal cannula. Is not having any chest pain at this time. Pro-Pelon is normal no leukocytosis BNP elevated signs of fluid overload on exam. Medical Records I reviewed the patient's medical records. Lab Data I reviewed the patient's lab results. 08/13/23 12:36 08/13/23 12:36 Labs/Radiology: Radiology Impressions Chest X-Ray 08/13/23 12:21 IMPRESSION: Increased bilateral lower lobe opacities from prior comparison 06/03/2023, potentially reflecting any combination of atelectasis or infiltrate. Laboratory Results WBC 9.59 10^3/uL (3.29-11.43) 08/13/23 12:36 RBC 4.41 10^6/uL (3.85-5.65) 08/13/23 12:36 Hgb 12.40 g/dL (11.27-16.99) 08/13/23 12:36 Hct 40.1 % (37-53) 08/13/23 12:36 MCV 90.9 fl (82-101) 08/13/23 12:36 MCH 28.1 pg (27-33) 08/13/23 12:36 MCHC 30.9 g/dL (30-55) 08/13/23 12:36 RDW 16.1 % (12.1-15.1) H 08/13/23 12:36 Plt Count 196 10^3/cmm (157-399) 08/13/23 12:36 MPV 9.9 fL (7.4-10.4) 08/13/23 12:36 Neut % (Auto) 78.0 % 08/13/23 12:36 Lymph % (Auto) 7.1 % 08/13/23 12:36 [place] % (Auto) 7.5 % 08/13/23 12:36 Eos % (Auto) 6.3 % 08/13/23 12:36 Baso % (Auto) 0.7 % 08/13/23 12:36 Neut # (Auto) 7.48 10^3/uL (1.8-7.7) 08/13/23 12:36 Lymph # (Auto) 0.7 10^3/uL (0.8-4.8) L 08/13/23 12:36 [place] # (Auto) 0.7 10^3/uL (0.2-0.9) 08/13/23 12:36 Eos # (Auto) 0.6 10^3/uL (0.0-0.8) 08/13/23 12:36 Baso # (Auto) 0.1 10^3/uL (0.0-0.1) 08/13/23 12:36 Nucleated RBC % (auto) 0 % 08/13/23 12:36 Nucleated RBCs # 0.0 /100WBC 08/13/23 12:36 Specimen Type Arterial 08/13/23 12:27 Sample Site Radial, left 08/13/23 12:27 ABG pH 7.39 (7.35-7.45) 08/13/23 12:27 ABG pCO2 39.6 mmHg (35-45) 08/13/23 12:27 ABG pO2 61.9 mmHg (80.0-100.0) L 08/13/23 12:27 ABG HCO3 24.2 mmol/L (22-26) 08/13/23 12:27 ABG O2 Saturation 91.2 08/13/23 12:27 ABG Base Excess -0.7 mmol/L (-2.0-2.0) 08/13/23 12:27 Sam Test Pos 08/13/23 12:27 A-a O2 Gradient 5.0 mmHg (5-10) 08/13/23 12:27 Hematocrit 38.4 % (42-52) L 08/13/23 12:27 Hgb O2 Saturation 89.0 % (95-100) L 08/13/23 12:27 Carboxyhemoglobin 2.1 %THgb (0.4-20.1) 08/13/23 12:27 Methemoglobin 0.4 % (0.4-1.5) 08/13/23 12:27 Total Hemoglobin 12.5 g/dL (14-18) L 08/13/23 12:27 Sodium 138.0 mmol/L (131-143) 08/13/23 12:27 Potassium 4.4 mmol/L (3.5-5.0) 08/13/23 12:27 Glucose 122.0 mg/dL (70-115) H 08/13/23 12:27 Ionized Calcium 1.2 mmol/L (1.1-1.4) 08/13/23 12:27 O2 Delivery Device Nc 08/13/23 12:27 O2 Liters/Min 5.0 % 08/13/23 12:27 First Line Production Supervisor ID [place] 08/13/23 12:27 Sodium 137 mmol/L (136-145) 08/13/23 12:36 Potassium 4.5 mmol/L (3.5-5.1) 08/13/23 12:36 Chloride 102 mmol/L (98-107) 08/13/23 12:36 Carbon Dioxide 22 mmol/L (22-29) 08/13/23 12:36 Anion Gap 17.5 (5-19) 08/13/23 12:36 BUN 34 mg/dL (8-23) H 08/13/23 12:36 Creatinine 1.7 mg/dL (0.7-1.2) H 08/13/23 12:36 GFR Calculation Not Reportable 08/13/23 12:36 Glucose 118 mg/dL (65-115) H 08/13/23 12:36 Calculated Osmolality 293 mOsm/kg (285-295) 08/13/23 12:36 Calcium 9.0 mg/dL (8.5-10.5) 08/13/23 12:36 Total Bilirubin 1.4 mg/dL (0.15-1.2) H 08/13/23 12:36 AST 14 U/L (0-40) 08/13/23 12:36 ALT 9 U/L (0-41) 08/13/23 12:36 Alkaline Phosphatase 80 U/L (40-130) 08/13/23 12:36 Troponin T Baseline 28 ng/L (0-15) H 08/13/23 12:36 C-Reactive Protein 78.3 mg/L (0.0-4.9) H 08/13/23 12:36 NT-Pro-B Natriuret Pep 4203 pg/mL (0-125) H 08/13/23 12:36 Total Protein 7.2 g/dL (6.6-8.7) 08/13/23 12:36 Albumin 3.7 g/dL (3.5-5.2) 08/13/23 12:36 Globulin 3.5 g/dL (1.3-4.6) 08/13/23 12:36 Procalcitonin 0.15 ng/mL (0-0.5) 08/13/23 12:36 All radiology interpretation(s) finalized by discharge Discharge Plan Discharge Patient Disposition: Admitted As Inpatient Admit Provider: Ben Smith Clinical Impression: Systolic CHF, acute, CKD (chronic kidney disease) Condition: Stable Coding Level of Care Code ED Fiberglass Quality Technician for Georges Sanderson
[2023-08-13 12:38] LABS: ABG PCO2 39.6 mmHg (35-45); ABG PH Result 7.39 (7.35-7.45); Arterial Blood Gas Hematocrit 38.4 % (42-52); Base Excess ABG -0.7 mmol/L (-2.0-2.0); Blood Gas Allen Test Pos; Blood Gas Operator Identificat WALCI; Blood Gas Sample Site Radial, left; Blood Gas Sample Type Arterial; Carboxyhemoglobin 2.1 %THgb (0.4-20.1); HCO3 ABG 24.2 mmol/L (22-26); Ionized Calcium Level - ABG 1.2 mmol/L (1.1-1.4); Methemoglobin 0.4 % (0.4-1.5); Oxygen Device NC; Oxygen Saturation ABG 91.2; PO2 ABG 61.9 mmHg (80.0-100.0); Potassium Level - ABG 4.4 mmol/L (3.5-5.0); Total Hemoglobin 12.5 g/dL (14-18)
[2023-08-13 12:43] LABS: Basophils # 0.1 10^3/uL (0.0-0.1); Basophils % 0.7 %; Eosinophils # 0.6 10^3/uL (0.0-0.8); Eosinophils % 6.3 %; Hematocrit 40.1 % (37-53); Lymphocytes # 0.7 10^3/uL (0.8-4.8); Lymphocytes % 7.1 %; Mean Corpuscular HGB Conc 30.9 g/dL (30-55); Mean Corpuscular Hemoglobin 28.1 pg (27-33); Mean Corpuscular Volume 90.9 fl (82-101); Mean Platelet Volume 9.9 fL (7.4-10.4); Monocytes # 0.7 10^3/uL (0.2-0.9); Monocytes % 7.5 %; Neutrophils # 7.48 10^3/uL (1.8-7.7); Nucleated Red Blood Cells % 0 %; Platelet Count 196 10^3/cmm (157-399); Red Blood Count 4.41 10^6/uL (3.85-5.65); Red Cell Distribution Width 16.1 % (12.1-15.1); White Blood Count 9.59 10^3/uL (3.29-11.43)
[2023-08-13 13:09] LABS: NT Pro B Type Natriuretic Pept 4203 pg/mL (0-125); Procalcitonin 0.15 ng/mL (0-0.5)
[2023-08-13 13:20] LABS: Alanine Aminotransferase 9 U/L (0-41); Albumin Level 3.7 g/dL (3.5-5.2); Alkaline Phosphatase 80 U/L (40-130); Anion Gap 17.5 (5-19); Aspartate Amino Transferase 14 U/L (0-40); Blood Urea Nitrogen 34 mg/dL (8-23); Carbon Dioxide 22 mmol/L (22-29); Chloride 102 mmol/L (98-107); Globulin 3.5 g/dL (1.3-4.6); Glucose 118 mg/dL (65-115); Osmolality Calculated 293 mOsm/kg (285-295); Potassium 4.5 mmol/L (3.5-5.1); Sodium 137 mmol/L (136-145); Total Bilirubin 1.4 mg/dL (0.15-1.2); Total Protein 7.2 g/dL (6.6-8.7)
[2023-08-13 13:35] LABS: Troponin(5th) Baseline 28 ng/L (0-15)
[2023-08-13] MEDS: FUROsemide 10 mg/mL SDV 4mL 40 MG IVP ×2 (13:42→17:38)
--- NOTE | 2023-08-13 14:15 | CTR_ITS ---
PROCEDURE INFORMATION: Exam: CT Chest Without Contrast; Diagnostic Exam date and time: 08/13/2023 2:31 PM Age: 73 years old Clinical indication: Shortness of breath; Prior surgery; Surgery date: 6+ months; Surgery type: Open heart; Additional info: SOB TECHNIQUE: Imaging protocol: Diagnostic computed tomography of the chest without contrast. Radiation optimization: All CT scans at this facility use at least one of these dose optimization techniques: automated exposure control; mA and/or kV adjustment per patient size (includes targeted exams where dose is matched to clinical indication); or iterative reconstruction. REPORTING DATA: Count of CT and Cardiac NM exams in prior 12 months: This patient has received 3 known CTs and 0 known cardiac nuclear medicine studies in the 12 months prior to the current study. COMPARISON: CT chest wo con [id number] 04/19/2023 12:09 PM RADIATION DOSE METRICS: Total DLP (mGy-cm): 18222 FINDINGS: Lungs: Multifocal right upper and middle lobe airspace opacities. Fibrotic and emphysematous changes. Pleural spaces: Small right and partially loculated trace left pleural effusions. Heart: CABG. Coronary calcifications. No pericardial effusion. Lymph nodes: Unchanged mediastinal/hilar lymph nodes. Vasculature: No aortic aneurysm. Bones/joints: No acute findings Soft tissues: Partially visualized right hepatic lesion. CT/CT chest wo con [id number] IMPRESSION: Multifocal right lung opacities likely infectious/inflammatory. Small right and trace left pleural effusion
--- NOTE | 2023-08-13 14:15 | USCV_ITS ---
Torey Kaba Age: 73 Gender: M : 1950 Exam Date: 08/13/2023 17:28 Ordering Phys: Ben Smith MD Technologist: Fady Rhodes Exam Location: [facility] [place] Indication: sob BP: 130 / 57 HR: 77 Rhythm: Sinus Technical Quality: Adequate MEASUREMENTS (Male / Female) Normal Values 2D ECHO LVOT Diameter 2.1 cm LV Ejection Fraction MOD 2C 44.4 % LV Ejection Fraction 2C AL 45.3 % LA Diameter 5.2 cm LA Width 4.2 cm LA Height 6.7 cm RA Width 4.6 cm RA Height 5.4 cm Aorta at Sinotubular Diameter 2.4 cm M-MODE Aortic Annulus Diameter 2.7 cm LA Ao Ratio MM 1.9 MV E Point Septal Separation 1.6 cm DOPPLER AV Peak Velocity 182.0 cm/s LVOT Peak Velocity 75.0 cm/s AV Area Cont Eq vti 1.7 cm squared AV Area Cont Eq pk 1.4 cm squared MV Peak Velocity 126.0 cm/s MV Area PHT 5.1 cm squared Mitral E to A Ratio 1.6 MV E' Velocity 51.5 cm/s Mitral E to MV E' Ratio 13.0 Mitral E to LV E' Lateral Ratio 12.1 Mitral E to LV E' Septal Ratio 14.2 TR Peak Velocity 308.2 cm/s TR Peak Gradient 38.0 mmHg TR Mean Velocity 235.2 cm/s TR Mean Gradient 23.3 mmHg TR Velocity Time Integral 72.5 cm Right Atrial Pressure 8.0 mmHg Pulmonary Artery Systolic Pressu 46.0 mmHg PV Peak Velocity 101.7 cm/s RV Acceleration Time 0.1 s RV Ejection Time 0.3 s RV AcT/ET 0.4 FINDINGS Left Ventricle Mildly dilated left-ventricular with reduced ejection fraction of 45%. Diffusely hypokinetic left-ventricule Right Ventricle Normal RV size with slightly diminished ejection fraction Right Atrium Mildly increased right atrial size. Left Atrium Moderately increased left atrial size. Mitral Valve Thickened mitral valve. Aortic Valve Thickened aortic valve. Tricuspid Valve Thickened tricuspid valve. Trace tricuspid valve regurgitation. Estimated pulmonary artery peak systolic pressure 46 mmHg Pulmonic Valve Could not be visualized well Pericardium No pericardial effusion. Aorta Normal aortic annulus size. IVC Inferior vena cava not visualized. CONCLUSIONS Mildly dilated left-ventricular with reduced ejection fraction of 45%. Diffusely hypokinetic left-ventricule. Moderately increased left atrial size. Mildly increased right atrial size. Thickened mitral valve. Thickened tricuspid valve. There is no pericardial effusion. There are no intracardiac masses. Trace tricuspid valve regurgitation. Estimated pulmonary artery peak systolic pressure 46 mm Hg Compared to the study from 05/20/2022, no significant changes in the 2D findings. Dr Cholo Kelsey MD FACC (Electronically Signed) Final Date: 13 August 2023 21:46 S
--- NOTE | 2023-08-13 14:18 | P.HP_ITS ---
Providers/Chief Complaint Primary Care Provider: Bill Prescott DO Chief Complaint: SOB History of Present Illness Torey Kaba is a 73 year old male with a past medical history of COPD, emphysema on 5 L, CAD PCI/CABG, history of insulin-dependent type 2 diabetes mellitus, hypertension, hyperlipidemia, obesity, diastolic CHF history of smoking, who presents to [facility] for shortness of breath. Patient tells me for the last 3 months, he has been feeling increasingly short of breath, short of breath with exertion, he has been sleeping in a recliner, also with bilateral lower extremity edema, complaining intermittent chest discomfort, with the shortness of breath improving with nitroglycerin. He also produces a chronic productive cough, now with had more brownish phlegm in it, normally is clear, does report intermittent fevers, chills, no hemoptysis, no calf pain, no calf swelling, recent surgeries Review of Systems Const: Reports: fever(s), fatigue and malaise Card: Reports: chest pain Resp: Reports: dyspnea and productive cough GI: Denies: abdominal pain : Denies: flank pain or difficulty urinating Musc: Denies: neck pain or back pain Neuro: Denies: headache(s) Medications/Allergies Home Medications Medication Instructions Recorded Confirmed Last Taken Type cetirizine 10 mg capsule 10 mg PO DAILY@1800 02/26/20 07/07/23 06/02/23 History aspirin 81 mg tablet,delayed 81 mg PO DAILY@0700 01/02/21 07/07/23 06/03/23 History release albuterol sulfate 90 mcg/actuation 2 puff inhalation Q6H PRN 01/25/21 07/07/23 07/27/22 06:00 History aerosol inhaler (ProAir HFA) Shortness Of Breath Or Wheezing clopidogrel 75 mg tablet 75 mg PO DAILY 01/25/21 07/07/23 06/03/23 History carvedilol 25 mg tablet (Coreg) 25 mg PO BID #60 tabs 03/27/21 07/07/23 06/03/23 Rx fluticasone propionate 50 2 spray intranasal DAILY@0700 PRN 04/20/21 07/07/23 07/27/22 06:00 History mcg/actuation nasal Congestion spray,suspension (Allergy Relief (fluticasone)) lovastatin 40 mg tablet 20 mg PO BEDTIME 04/20/21 07/07/23 06/02/23 History methocarbamol 750 mg tablet 750 mg PO Q12H PRN Muscle Pain 04/20/21 07/07/23 05/23/21 19:30 History furosemide 40 mg tablet 40 mg PO BID 07/15/21 07/07/23 06/03/23 History guaifenesin 600 mg tablet, 600 mg PO Q12H PRN congestion #30 11/17/21 07/07/23 Unknown Rx extended release 12 hr (Mucinex) tabs dextromethorphan-guaifenesin 10 1 tab-cap PO Q8H PRN Cold Symptoms 11/29/21 07/07/23 Unknown History mg-200 mg capsule (Coricidin HBP Chest Congestion-Cough) valsartan 160 mg tablet 240 mg PO DAILY #90 tabs 11/29/21 07/07/23 06/03/23 Rx amlodipine 5 mg tablet 10 mg PO DAILY 01/12/22 07/07/23 06/03/23 History hydralazine 25 mg tablet 25 mg PO TID #90 tabs 01/12/22 07/07/23 06/03/23 Rx insulin aspart U-100 100 unit/mL 5 unit SUBCUT DAILY PRN High Blood 01/12/22 07/07/23 07/26/22 18:30 History (3 mL) subcutaneous pen (Novolog Sugar FlexPen U-100 Insulin aspart) vitamin E 200 unit capsule 200 unit PO DAILY 01/12/22 07/07/23 06/03/23 History Lantus U-100 Insulin 38 unit PO BID@0700,1800 07/05/22 07/07/23 06/03/23 History ascorbate calcium (vitamin C) 500 500 mg PO DAILY 07/05/22 07/07/23 06/03/23 History mg tablet magnesium oxide 400 mg PO DAILY 07/05/22 07/07/23 06/03/23 History metformin 1,000 mg tablet 500 mg PO BID@0700,1800 07/05/22 07/07/23 06/03/23 History vitamin B complex (B 1 tab PO DAILY 07/05/22 07/07/23 06/03/23 History Complex-Vitamin B12 tablet) ammonium lactate 12 % lotion 1 applic topical BID #225 grams 01/19/23 07/07/23 Unknown Rx isosorbide mononitrate 30 mg 30 mg PO BID #180 tabs 02/15/23 07/07/23 06/03/23 R x tablet,extended release 24 hr Diabetic shoes With 3 Inserts #1 ea 05/12/23 07/07/23 Unknown Rx cholecalciferol (vitamin D3) 25 25 mcg PO DAILY 06/03/23 07/07/23 06/03/23 History mcg (1,000 unit) capsule (Vitamin D3) budesonide 160 mcg-glycopyr 9 2 inh inhalation BID #10.7 grams 06/23/23 07/07/23 Unknown Rx mcg-formot 4.8 mcg/actuation HFA inhaler (Breztri Aerosphere) levofloxacin 500 mg tablet 500 mg PO DAILY #5 tabs 06/23/23 07/07/23 Unknown Rx Allergies Allergy/AdvReac Type Severity Reaction Status Date / Time lactose Allergy Mild ADR-Abdominal Verified 08/13/23 12:29 Pain montelukast Allergy Mild dyspnea Verified 08/13/23 12:29 apricot Allergy Unknown Verified 08/13/23 12:29 Penicillins Allergy Unknown Verified 08/13/23 12:29 PFSH Acute PFSH: Medical History (Updated 08/13/23 @ 14:25 by Ben Smith MD) Acute kidney injury Acute on chronic diastolic (congestive) heart failure Anemia Arthralgia Atherosclerosis of coronary artery of [place] heart without angina pectoris CHF exacerbation CKD (chronic kidney disease) Community acquired pneumonia COPD (chronic obstructive pulmonary disease) Diabetes Hyperlipidemia Hypertension Normochromic normocytic anemia NSTEMI (non-ST elevated myocardial infarction) Pancreatic cyst Pancreatitis Pleural effusion Pneumonia Restrictive lung disease Sacroiliac dysfunction Sepsis Umbilical hernia, incarcerated Surgical History H/O esophagogastroduodenoscopy History of colonoscopy with polypectomy History of coronary angioplasty with insertion of stent Hx of CABG Family History Brother CAD (coronary artery disease) Diabetes Lung disease Sister CAD (coronary artery disease) Diabetes Cancer Lung disease Father CAD (coronary artery disease) Diabetes Lung disease Mother CAD (coronary artery disease) Diabetes Stroke Brother CAD (coronary artery disease) Diabetes Lung disease Brother CAD (coronary artery disease) Diabetes Sister CAD (coronary artery disease) Diabetes Lung disease Sister CAD (coronary artery disease) Diabetes Sister CAD (coronary artery disease) Diabetes Daughter Chronic kidney disease (CKD) Diabetes Denies family history of Clotting disorder Dementia Suicide Anesthesia complication Bleeding disorder Social History Smoking and tobacco/nicotine status: former use of tobacco/nicotine Quit status (tobacco/nicotine): has quit using Year quit tobacco: 1983 [id number] Second hand smoke exposure: No Alcohol intake: former Substance/Drug Use: never Adopted: No Caregiver/support person: Yes Lives independently: Yes Household members: spouse Housing: House Marital status: service: Yes Current occupational status: retired Pets and animals: No Leisure activites: exercise Sexually active: No Do you think of yourself as: Straight/Heterosexual Current gender identity: Male Mayra/Sikh: Restorationist Special mayra needs: No Agree to transfusion: No Vitals/I&O/Wt Last Vital Signs Temp 97.7 F 08/13/23 12:19 Pulse 77 08/13/23 12:19 Resp 20 H 08/13/23 12:19 BP 124/84 08/13/23 12:19 Pulse Ox 87 L 08/13/23 12:19 O2 Del Method Nasal Cannula 08/13/23 12:19 O2 Flow Rate 5 08/13/23 12:19 Weight last 48 hrs Weight 102.512 kg Physical Exam Const: COMMON NORMALS: no acute distress and patient oriented x3 HENMT: COMMON NORMALS: normocephalic Eye: COMMON NORMALS: Equal, round and reactive pupils present and EOMs intact bilaterally Neck/C-Spine: COMMON NORMALS: full ROM and no lymphadenopathy Chest: COMMONS NORMALS: normal inspection of the chest Resp: COMMON NORMALS: normal respiratory effort, No retractions and No use of accessory muscles AUSCULTATION: crackles and wheezes Cardio: COMMON NORMALS: no JVD, regular rate, regular rhythm, S1 normal heart sound present and S2 normal heart sound present RATE: regular rate RHYTHM: regular rhythm HEART SOUNDS: S1 normal heart sound present and S2 normal heart sound present GI: COMMON NORMALS: Normal to inspection, nondistended, normoactive bowel sounds present, Soft to palpation and non-tender : COMMON NORMALS: Yes no CVA tenderness Extremity: NARRATIVE EXTREMITY EXAM: 2+ pitting edema bilateral lower extremity Neuro: COMMON NORMALS: patient oriented x3, CN's II-XII intact bilaterally, moves all extremities and no focal motor deficits Psych: COMMON NORMALS: mental status grossly normal Data 08/13/23 12:36 08/13/23 12:36 A&P Assessment and plan (1) Acute hypoxic respiratory failure: (2) Asthma-COPD overlap syndrome: (3) 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: (4) Hyperlipidemia: (5) Diabetes: (6) WHIT (acute kidney injury): (7) Hx of CABG: (8) Anemia: (9) CKD (chronic kidney disease): Qualifiers: Chronic kidney disease stage: stage 3 (moderate) Chronic kidney disease stage 3 subtype: stage 3b (GFR 30-44) Qualified Code(s): N18.32 - Chronic kidney disease, stage 3b (10) Hypertension: Qualifiers: Hypertension type: essential hypertension Qualified Code(s): I10 - Essential (primary) hypertension (11) Peripheral arterial occlusive disease: (12) Chest pain: (13) Systolic CHF, acute: (14) Pneumonia: Qualifiers: Pneumonia type: due to unspecified organism Laterality: bilateral Lung location: unspecified part of lung Qualified Code(s): J18.9 - Pneumonia, unspecified organism (15) COPD exacerbation: Plan Acute hypoxic respiratory failure, ? Likely multifactorial, ? Systolic CHF, known EF of 40% ?, Productive cough, chest x-ray showing bilateral lower lobe infiltrates, concerns for pneumonia ? Also COPD exacerbation ? Plan, ? Fluid restrictions at 1000 cc, ? Lasix 40 IV twice daily, ? Monitor creatinine monitor urine output, monitor potassium ? Sputum cultures, blood cultures, Pro-Pelon, CRP, respiratory viral panel, ? Rocephin, azithromycin, ? Decadron 6 mg IV push once, ? Monitor respiratory status closely, ? DuoNeb, budesonide, ? Full code, ? Lovenox for DVT prophylaxis Chest pain -Cardiac cath from 2021 -No significant left main disease.? 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 Mild to moderate diffuse disease in circumflex artery. A small caliber second obtuse marginal artery was found to have severe diffuse disease. Severe diffuse disease of the right coronary artery with total occlusion of the PDA branch, at the ostium. Patent [place] to LAD and a venous graft to the PDA. Total occlusion of the venous grafts to the obtuse marginal and diagonal arteries, at the proximal anastomotic sites. Features of severe left ventricular diastolic function with an LVEDP of 34 mmHg. ? Serial EKGs, serial troponins, telemetry monitoring, ? Aspirin, statin, Plavix, ? Repeat cardiac echo Systolic CHF, acute exacerbation, as above CONCLUSIONS ?Technically difficult examination.? Poor visualization.? The ?ventricle is at least mildly enlarged.? There appears to be ?global hypokinesis.? The ejection fraction is roughly 40%.? ?Grade 2 diastolic dysfunction.? No obvious regional wall motion ?disturbances. ?Normal right ventricular size and systolic function. Mild ?pulmonary hypertension, RVSP 41.6 mmHg. ?Mildly increased right atrial size. ?Mildly increased left atrial size. ?Structurally normal mitral valve. Moderate mitral valve ?regurgitation. ?Structurally normal trileaflet aortic valve. Mild aortic valve ?calcification. Mild aortic valve stenosis, mean gradient 6.8 ?mmHg, GABI 1.2 cm squared Pneumonia, ? As above, no ? CT chest COPD exacerbation, as above, Type 2 diabetes mellitus, continue Lantus 30 units twice daily, with a moderate dose sliding scale Full code ? Lovenox for DVT prophylaxis . 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
[2023-08-13 14:40] LABS: C Reactive Protein 78.3 mg/L (0.0-4.9)
--- NOTE | 2023-08-13 14:43 | PC.PHAR ---
Addendum entered by Elizabeth Jiménez 08/13/23 14:44: [facility] to get med [facility] so medications entered are just from what the pt states he takes Original Note: pt verified his medications states he takes care of them-notes are made in the pharmacy comments-pt states he was prescribed sulfasalazine 500mg bid pt states he stop taking 3 weeks to a month ago-pt states it was messing with his breathing-
[2023-08-13 15:40] LABS: Troponin 5 2HR 28.63 ng/L (0-15); Troponin 5 2HR Delta 0.63 ABS# (0-10)
--- NOTE | 2023-08-13 16:47 | ECG_ITS ---
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 Measurements Intervals [place] Rate: 73 P: 77 WV: 225 QRS: 26 QRSD: 150 T: 61 QT: 417 QTc: 462 Interpretive Statements SINUS RHYTHM WITH FIRST DEGREE AV BLOCK WITH OCCASIONAL VENTRICULAR PREMATURE COMPLEXES INDETERMINATE AXIS RIGHT BUNDLE BRANCH BLOCK [120+ ms QRS DURATION, UPRIGHT V1, 40+ ms S IN I/aVL/V4/V5/V6] ANTERIOR MYOCARDIAL INFARCTION , PROBABLY OLD [40+ ms Q WAVE AND/OR ST/T ABNORMALITY IN V3/V4] Compared to ECG 08/13/2023 12:27:50 Ventricular premature complex(es) now present T-wave abnormality no longer present Possible ischemia no longer present Myocardial infarct finding still present Electronically Signed On 08-13-2023 22:21:52 GUITAR MAKER by Cholo Kelsey M.D. [id number]
[2023-08-13] MEDS: enoxaparin 40 mg/0.4 mL Syringe SUBCUT (17:28)
[2023-08-13] MEDS: hyDRALAzine 25 mg Tablet PO (17:29)
[2023-08-13] MEDS: isosorbide mononitrate ER 30 mg Tablet PO (17:29)
[2023-08-13] MEDS: cefTRIAXone 1,000 MG in sodium chloride 0.9% (plus) 50 ML 100 MG IV (17:36)
[2023-08-13] MEDS: azithromycin 500 MG in sodium chloride 0.9% 250 ML 250 MG IV (17:36)
[2023-08-13] MEDS: dexamethasone 10 mg/mL INJ 6 MG IVP (17:37)
[2023-08-13] MEDS: pantoprazole 40 mg SDV IVP (17:37)
[2023-08-13 18:07] LABS: Add Urine Microscopic? NO; Charge for UA Resulting for Rev
[2023-08-13 18:19] LABS: Bilirubin Urine Neg (Negative); Blood Urine Neg (Negative); Glucose Urine UA Norm (Normal); Ketones Urine Negative (Negative); Leukocyte Esterase Urine Negative (Negative); Nitrate Urine Negative (Negative); Protein Urine Neg (Negative); Urine Appearance Clear (CLEAR); Urine Color Yellow (Yellow); Urobilinogen Urine Neg (Negative); pH Urine 6.5 (5-7)
--- NOTE | 2023-08-13 19:16 | ECG_ITS ---
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 Measurements Intervals [place] Rate: 79 P: 79 LA: 237 QRS: 48 QRSD: 149 T: 70 QT: 410 QTc: 470 Interpretive Statements SINUS RHYTHM WITH FIRST DEGREE AV BLOCK RIGHT BUNDLE BRANCH BLOCK [120+ ms QRS DURATION, UPRIGHT V1, 40+ ms S IN I/aVL/V4/V5/V6] Compared to ECG 08/13/2023 16:47:10 Ventricular premature complex(es) no longer present Indeterminate axis no longer present Myocardial infarct finding no longer present Electronically Signed On 08-13-2023 22:23:07 CRACKER SPRAYER by Cholo Kelsey M.D. [id number]
[2023-08-13] MEDS: insulin glargine 100 units/1 mL 38 UNIT SUBCUT (19:30)
[2023-08-13] MEDS: ipratropium-albuterol 3 mL Neb INHALATION (19:56)
[2023-08-13] MEDS: budesonide 0.5 mg/2 mL Neb INHALATION (19:56)
[2023-08-13 19:57] LABS: Adenovirus Not Detected (NOT DETECT); Chlamydia Pneumoniae Not Detected (NOT DETECT); Coronavirus 229E,HKU1,NL63,OC4 Not Detected (NOT DETECT); Human Metapneumovirus Not Detected (NOT DETECT); Human Rhinovirus/Enterovirus Not Detected (NOT DETECT); Influenza A Not Detected (NOT DETECT); Influenza A H1 Not Detected (NOT DETECT); Influenza A H1-2009 Not Detected (NOT DETECT); Influenza A H3 Not Detected (NOT DETECT); Influenza B Not Detected (NOT DETECT); Mycoplasma Pneumoniae Not Detected (NOT DETECT); Parainfluenza Virus Type 1 Not Detected (NOT DETECT); Parainfluenza Virus Type 2 Not Detected (NOT DETECT); Parainfluenza Virus Type 3 Not Detected (NOT DETECT); Parainfluenza Virus Type 4 Not Detected (NOT DETECT); Respiratory Syncytial Virus A Not Detected (NOT DETECT); Respiratory Syncytial Virus B Not Detected (NOT DETECT); SARS-COV-2 Not Detected (NOT DETECT)
[2023-08-13 21:19] LABS: Glucose Point of Care 69 mg/dL (70-110)
[2023-08-13 21:25] LABS: Glucose Point of Care 164 mg/dL (70-110)
[2023-08-13] MEDS: atorvastatin 40 mg Tablet 20 MG PO (22:12)
[2023-08-14] VITALS (17 sets, daily range): BP systolic 118–130; BP diastolic 59–79; PULSE 75–94; RESP 16–26; TEMP 36.4–36.6; O2SAT 89–97
[2023-08-14 04:22] LABS: Basophils % 0.3 %; Eosinophils % 0.2 %; Hematocrit 35.8 % (37-53); Lymphocytes # 0.3 10^3/uL (0.8-4.8); Lymphocytes % 4.1 %; Mean Corpuscular HGB Conc 30.7 g/dL (30-55); Mean Corpuscular Hemoglobin 28.1 pg (27-33); Mean Corpuscular Volume 91.3 fl (82-101); Mean Platelet Volume 10.4 fL (7.4-10.4); Monocytes # 0.1 10^3/uL (0.2-0.9); Neutrophils # 5.64 10^3/uL (1.8-7.7); Neutrophils % 92.9 %; Nucleated Red Blood Cells % 0 %; Platelet Count 204 10^3/cmm (157-399); Red Blood Count 3.92 10^6/uL (3.85-5.65); Red Cell Distribution Width 16.2 % (12.1-15.1); White Blood Count 6.07 10^3/uL (3.29-11.43)
[2023-08-14 04:41] LABS: Lactic Sepsis W/Reflex 0.9 mmol/L (0.5-2.2)
[2023-08-14 04:47] LABS: Alanine Aminotransferase 9 U/L (0-41); Albumin Level 3.7 g/dL (3.5-5.2); Alkaline Phosphatase 74 U/L (40-130); Anion Gap 15.7 (5-19); Aspartate Amino Transferase 12 U/L (0-40); Blood Urea Nitrogen 40 mg/dL (8-23); Carbon Dioxide 24 mmol/L (22-29); Chloride 102 mmol/L (98-107); Glucose 184 mg/dL (65-115); Magnesium 2.5 mg/dL (1.7-2.3); Osmolality Calculated 299 mOsm/kg (285-295); Phosphorus 3.5 mg/dL (2.5-4.5); Potassium 4.7 mmol/L (3.5-5.1); Sodium 137 mmol/L (136-145); Thyroid Stimulating Hormone 0.71 uIU/mL (0.27-4.20); Total Bilirubin 0.7 mg/dL (0.15-1.2); Total Protein 6.7 g/dL (6.6-8.7)
[2023-08-14 04:50] LABS: Chol HDL Ratio 3.68 mg/dL (1.0-5.00); Cholesterol 114 mg/dL (0-200); HDL Cholesterol 31 mg/dL (60-100); LDL Cholesterol Calculated 73 mg/dL (50-129); LDL HDL Ratio 2.35 RATIO (0.00-3.22); NT Pro B Type Natriuretic Pept 4190 pg/mL (0-125); Triglycerides 51 mg/dL (0-150)
[2023-08-14 04:56] LABS: Estmated Average Glucose 134; Hemoglobin A1C 6.3 % (4.0-6.0)
[2023-08-14 06:02] LABS: Glucose Point of Care 210 mg/dL (70-110)
[2023-08-14] MEDS: aspirin 81 mg EC Tablet PO (06:22)
[2023-08-14] MEDS: insulin glargine 100 units/1 mL 38 UNIT SUBCUT ×2 (06:29→18:32)
[2023-08-14] MEDS: budesonide 0.5 mg/2 mL Neb INHALATION ×2 (07:44→21:50)
[2023-08-14] MEDS: ipratropium-albuterol 3 mL Neb INHALATION ×2 (07:44→21:50)
[2023-08-14] MEDS: isosorbide mononitrate ER 30 mg Tablet PO ×2 (09:05→18:32)
[2023-08-14] MEDS: losartan 50 mg Tablet 100 MG PO (09:05)
[2023-08-14] MEDS: cholecalciferol (vitamin D3) 1,000 unit Tablet 1000 UNIT PO (09:06)
[2023-08-14] MEDS: FUROsemide 10 mg/mL SDV 4mL 40 MG IVP (09:06)
[2023-08-14] MEDS: metOLazone 5 MG Tablet PO (09:06)
[2023-08-14] MEDS: clopidogrel 75 mg Tablet PO (09:06)
[2023-08-14] MEDS: magnesium oxide 400 mg tablet PO (09:06)
[2023-08-14] MEDS: hyDRALAzine 25 mg Tablet PO ×3 (09:06→22:34)
[2023-08-14] MEDS: insulin lispro 100 unit/1 mL SUBCUT ×3 (09:07→18:32)
[2023-08-14 10:44] LABS: Glucose Point of Care 364 mg/dL (70-110)
--- NOTE | 2023-08-14 14:07 | P.PN_ITS ---
Subjective Subjective: Patient was seen this morning, he sitting up at the side of the bed, denies any fevers, no chills, he has a productive cough, he does report chest pain during the night, he used his own nitroglycerin at bedside, he tells that he will not give up the medication, as nursing staff take some time to get down to his room, he had one episode so he needed the nitroglycerin he had in his own medicine [facility] so he used it, I discussed for us to at least confirm his home medication, have pharmacy marked, and then we can keep it at bedside however he declines he tells me that you are not to take away my nitroglycerin, I discussed with patient about the morbidity mortality about using nitroglycerin without notifying us, especially as he is on multiple medications risk of side effects, he voiced understanding, all questions answered, but continues to repeat you will take away my nitroglycerin, I advised patient that if he does need it please notify nursing staff, so that we we use, currently chest pain-free Vitals/I&O/Wt Last Vital Signs Temp 97.8 F 08/14/23 08:00 Pulse 94 08/14/23 12:00 Resp 23 H 08/14/23 12:00 BP 130/59 08/14/23 12:00 Pulse Ox 96 08/14/23 12:00 O2 Del Method Nasal Cannula 08/14/23 12:00 O2 Flow Rate 5 08/14/23 07:46 FiO2 40 08/14/23 04:53 08/13/23 08/14/23 08/14/23 22:59 06:59 14:59 Intake Total 1140 / 1140 480 / 480 Output Total 975 / 975 300 / 1275 1000 / 1000 Balance 165 / 165 -300 / -135 -520 / -520 Weight last 48 hrs Weight 102.648 kg Weight 102.512 kg Weight 102.512 kg Physical Exam Const: COMMON NORMALS: no acute distress and patient oriented x3 Resp: COMMON NORMALS: normal respiratory effort, No retractions and No use of accessory muscles Cardio: COMMON NORMALS: regular rate, regular rhythm, S1 normal heart sound present and S2 normal heart sound present RATE: regular rate RHYTHM: re gular rhythm HEART SOUNDS: S1 normal heart sound present and S2 normal heart sound present GI: COMMON NORMALS: Normal to inspection, nondistended, normoactive bowel sounds present, non-tender and no bruits Extremity: NARRATIVE EXTREMITY EXAM: 1+ nonpitting edema Neuro: COMMON NORMALS: patient oriented x3 Psych: COMMON NORMALS: mental status grossly normal Data 08/14/23 03:23 08/14/23 03:23 Micro: Microbiology 08/13/23 17:25 Gram Stain - Final Sputum - Expectorated Sputum 08/13/23 14:59 Blood Culture - Preliminary Blood SPECIMEN COLLECTED 08/13/23 14:55 Blood Culture - Preliminary Blood SPECIMEN COLLECTED A&P Assessment and plan (1) Acute hypoxic respiratory failure: (2) Asthma-COPD overlap syndrome: (3) 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: (4) Hyperlipidemia: (5) Diabetes: (6) WHIT (acute kidney injury): (7) Hx of CABG: (8) Anemia: (9) CKD (chronic kidney disease): (10) Hypertension: Qualifiers: Hypertension type: essential hypertension Qualified Code(s): I10 - Essential (primary) hypertension (11) Peripheral arterial occlusive disease: (12) Chest pain: (13) Systolic CHF, acute: (14) Pneumonia: Qualifiers: Pneumonia type: due to unspecified organism Laterality: bilateral Lung location: unspecified part of lung Qualified Code(s): J18.9 - Pneumonia, unspecified organism (15) COPD exacerbation: Plan Acute hypoxic respiratory failure, ? Likely multifactorial, ? Systolic CHF, known EF of 40% ?, Multifocal right lung pneumonia ? Also COPD exacerbation ? Plan, ? Fluid restrictions at 1000 cc, ? 1 dose of IV Lasix 40 mg, with metolazone 5 mg ? Monitor creatinine monitor urine output, monitor potassium ? Sputum cultures, blood cultures, Pro-Pelon, CRP, respiratory viral panel, ? Rocephin, azithromycin, ?Hold off on further steroids ? Monitor respiratory status closely, ? DuoNeb, budesonide, ? Full code, ? Lovenox for DVT prophylaxis Chest pain -Cardiac cath from 2021 -No significant left main disease.? 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 Mild to moderate diffuse disease in circumflex artery. A small caliber second obtuse marginal artery was found to have severe diffuse disease. Severe diffuse disease of the right coronary artery with total occlusion of the PDA branch, at the ostium. Patent [place] to LAD and a venous graft to the PDA. Total occlusion of the venous grafts to the obtuse marginal and diagonal arteries, at the proximal anastomotic sites. Features of severe left ventricular ?CONCLUSIONS ?Mildly dilated left-ventricular with reduced ejection fraction ?of? 45%. ?Diffusely hypokinetic left-ventricule. ?Moderately increased left atrial size. ?Mildly increased right atrial size. ?Thickened mitral valve. ?Thickened tricuspid valve. ?There is no pericardial effusion. ?There are no intracardiac masses. ?Trace tricuspid valve regurgitation. ?Estimated pulmonary artery peak systolic pressure 46 mm Hg ?Compared to the study from 05/20/2022, no significant changes in ?the 2D? findings. ? Continues to complain of intermittent chest pain serial EKGs, serial troponins, telemetry monitoring, ? Continue aspirin, statin ? Continue to monitor chest pain Pneumonia, ? As above, no ? CT chest CT/CT chest wo con [id number] IMPRESSION: Multifocal right lung opacities likely infectious/inflammatory.? ? Small right and trace left pleural effusion ? COPD exacerbation, as above, Type 2 diabetes mellitus, continue Lantus 30 units twice daily, with a moderate dose sliding scale Full code ? Lovenox for DVT prophylaxis . 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
--- NOTE | 2023-08-14 16:15 | ECG_ITS ---
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 Measurements Intervals [place] Rate: 87 P: 64 DC: 238 QRS: 30 QRSD: 143 T: 43 QT: 399 QTc: 481 Interpretive Statements SINUS RHYTHM WITH FIRST DEGREE AV BLOCK WITH OCCASIONAL VENTRICULAR PREMATURE COMPLEXES POSSIBLE LEFT ATRIAL ENLARGEMENT [-0.1mV P-WAVE IN V1/V2] RIGHT BUNDLE BRANCH BLOCK [120+ ms QRS DURATION, UPRIGHT V1, 40+ ms S IN I/aVL/V4/V5/V6] Compared to ECG 08/13/2023 18:47:58 Ventricular premature complex(es) now present Electronically Signed On 08-14-2023 19:08:08 WAREHOUSE GENERAL LABORER by Cholo Kelsey M.D. [id number]
[2023-08-14 16:34] LABS: Glucose Point of Care 185 mg/dL (70-110)
[2023-08-14] MEDS: pantoprazole 40 mg SDV IVP (16:49)
[2023-08-14] MEDS: enoxaparin 40 mg/0.4 mL Syringe SUBCUT (16:49)
[2023-08-14] MEDS: azithromycin 500 MG in sodium chloride 0.9% 250 ML 250 MG IV (16:50)
[2023-08-14] MEDS: cefTRIAXone 1,000 MG in sodium chloride 0.9% (plus) 50 ML 100 MG IV (16:51)
[2023-08-14 17:12] LABS: Troponin(5th) Baseline 29 ng/L (0-15)
[2023-08-14 19:18] LABS: Troponin 5 2HR 39.29 ng/L (0-15)
[2023-08-14 19:21] LABS: Troponin 5 2HR Delta 10.29 ABS# (0-10)
--- NOTE | 2023-08-14 20:13 | ECG_ITS ---
[facility] Test Date: 2023-08-14 Pat Name: Torey Kaba Department: Room: 103 Gender: Male Senior Clerk: : 1950 Requested By: Ben Smith Order Number: [id number] Lianna MD: Cholo Kelsey M.D. Measurements Intervals [place] Rate: 86 P: 50 NH: 235 QRS: 34 QRSD: 149 T: 28 QT: 414 QTc: 496 Interpretive Statements SINUS RHYTHM WITH FIRST DEGREE AV BLOCK POSSIBLE LEFT ATRIAL ENLARGEMENT [-0.1mV P-WAVE IN V1/V2] RIGHT BUNDLE BRANCH BLOCK [120+ ms QRS DURATION, UPRIGHT V1, 40+ ms S IN I/aVL/V4/V5/V6] SEPTAL MYOCARDIAL INFARCTION , PROBABLY OLD [40+ ms Q WAVE IN V1/V2] Diffuse nonspecific ST-T changes Compared to ECG 08/14/2023 16:15:48 Myocardial infarct finding now present Ventricular premature complex(es) no longer present Electronically Signed On 08-14-2023 19:09:01 MEDIA ANALYST by Cholo Kelsey M.D. [id number]
[2023-08-14 20:17] LABS: Glucose Point of Care 145 mg/dL (70-110)
[2023-08-14] MEDS: atorvastatin 40 mg Tablet 20 MG PO (22:34)
[2023-08-14 23:03] LABS: Troponin 5 6HR 40.63 ng/L (0-15)
[2023-08-14 23:13] LABS: Troponin 5 6HR Delta 11.63 ng/L (0-12)
[2023-08-15] VITALS (14 sets, daily range): BP systolic 108–143; BP diastolic 55–67; PULSE 77–87; RESP 18–24; TEMP 36.4–36.9; O2SAT 90–96
[2023-08-15 04:54] LABS: Basophils # 0.1 10^3/uL (0.0-0.1); Basophils % 0.6 %; Eosinophils # 0.5 10^3/uL (0.0-0.8); Eosinophils % 4.9 %; Hematocrit 37.7 % (37-53); Lymphocytes # 0.9 10^3/uL (0.8-4.8); Lymphocytes % 8.7 %; Mean Corpuscular HGB Conc 31.6 g/dL (30-55); Mean Corpuscular Hemoglobin 28.5 pg (27-33); Mean Corpuscular Volume 90.2 fl (82-101); Mean Platelet Volume 10.3 fL (7.4-10.4); Monocytes # 0.8 10^3/uL (0.2-0.9); Monocytes % 7.8 %; Neutrophils % 77.6 %; Nucleated Red Blood Cells % 0 %; Platelet Count 237 10^3/cmm (157-399); Red Blood Count 4.18 10^6/uL (3.85-5.65); Red Cell Distribution Width 16.3 % (12.1-15.1); White Blood Count 10.81 10^3/uL (3.29-11.43)
[2023-08-15 05:11] LABS: Alanine Aminotransferase 9 U/L (0-41); Albumin Level 3.7 g/dL (3.5-5.2); Alkaline Phosphatase 74 U/L (40-130); Aspartate Amino Transferase 13 U/L (0-40); Blood Urea Nitrogen 49 mg/dL (8-23); Carbon Dioxide 24 mmol/L (22-29); Chloride 100 mmol/L (98-107); Globulin 3.4 g/dL (1.3-4.6); Glucose 72 mg/dL (65-115); Magnesium 2.6 mg/dL (1.7-2.3); Osmolality Calculated 294 mOsm/kg (285-295); Phosphorus 4.3 mg/dL (2.5-4.5); Sodium 136 mmol/L (136-145); Total Bilirubin 0.6 mg/dL (0.15-1.2); Total Protein 7.1 g/dL (6.6-8.7)
[2023-08-15 06:27] LABS: Glucose Point of Care 81 mg/dL (70-110)
[2023-08-15] MEDS: aspirin 81 mg EC Tablet PO (06:37)
[2023-08-15] MEDS: budesonide 0.5 mg/2 mL Neb INHALATION ×2 (08:53→19:31)
[2023-08-15] MEDS: isosorbide mononitrate ER 30 mg Tablet PO ×2 (10:27→18:30)
[2023-08-15] MEDS: cholecalciferol (vitamin D3) 1,000 unit Tablet 1000 UNIT PO (10:28)
[2023-08-15] MEDS: losartan 50 mg Tablet 100 MG PO (10:28)
[2023-08-15] MEDS: magnesium oxide 400 mg tablet PO (10:28)
[2023-08-15] MEDS: hyDRALAzine 25 mg Tablet PO ×3 (10:28→21:14)
[2023-08-15] MEDS: clopidogrel 75 mg Tablet PO (10:29)
[2023-08-15] MEDS: FUROsemide 10 mg/mL SDV 4mL 40 MG IVP (10:29)
[2023-08-15 12:04] LABS: Glucose Point of Care 130 mg/dL (70-110)
--- NOTE | 2023-08-15 12:12 | P.PN_ITS ---
Subjective Subjective: Patient was seen this morning, denies any chest pain, does have shortness of breath with exertion, continues to have pitting edema, but improving he tells me, no fevers, no chills, does have a nonproductive cough Vitals/I&O/Wt Last Vital Signs Temp 98.1 F 08/15/23 08:00 Pulse 84 08/15/23 08:00 Resp 18 08/15/23 08:00 BP 111/55 08/15/23 08:00 Pulse Ox 94 08/15/23 08:00 O2 Del Method Nasal Cannula 08/15/23 08:00 O2 Flow Rate 3 08/15/23 08:00 FiO2 40 08/14/23 23:09 08/14/23 08/15/23 08/15/23 22:59 06:59 14:59 Intake Total 386 / 866 650 / 1516 240 / 240 Output Total 400 / 1400 400 / 1800 450 / 450 Balance -14 / -534 250 / -284 -210 / -210 Weight last 48 hrs Weight 102.648 kg Weight 102.512 kg Weight 102.512 kg Physical Exam Const: COMMON NORMALS: no acute distress and patient oriented x3 Resp: COMMON NORMALS: normal respiratory effort, No retractions, No use of accessory muscles and clear to auscultation bilaterally AUSCULTATION: clear to auscultation bilaterally Cardio: COMMON NORMALS: regular rate, regular rhythm, S1 normal heart sound present and S2 normal heart sound present RATE: regular rate RHYTHM: regular rhythm HEART SOUNDS: S1 normal heart sound present and S2 normal heart sound present GI: COMMON NORMALS: Normal to inspection, nondistended, normoactive bowel sounds present and non-tender Extremity: COMMON NORMALS: no pedal edema Neuro: COMMON NORMALS: patient oriented x3 Psych: COMMON NORMALS: mental status grossly normal Data 08/15/23 04:15 08/15/23 04:15 Micro: Microbiology 08/13/23 14:59 Blood Culture - Preliminary Blood NEGATIVE TO DATE 08/13/23 14:55 Blood Culture - Preliminary Blood NEGATIVE TO DATE 08/13/23 17:25 Gram Stain - Final Sputum - Expectorated Sputum A&P Assessment and plan (1) Acute hypoxic respiratory failure: (2) Asthma-COPD overlap syndrome: (3) 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: (4) Hyperlipidemia: (5) Diabetes: (6) WHIT (acute kidney injury): (7) Hx of CABG: (8) Anemia: (9) CKD (chronic kidney disease): (10) Hypertension: Qualifiers: Hypertension type: essential hypertension Qualified Code(s): I10 - Essential (primary) hypertension (11) Peripheral arterial occlusive disease: (12) Chest pain: (13) Systolic CHF, acute: (14) Pneumonia: Qualifiers: Pneumonia type: due to unspecified organism Laterality: bilateral Lung location: unspecified part of lung Qualified Code(s): J18.9 - Pneumonia, unspecified organism (15) COPD exacerbation: Plan Acute hypoxic respiratory failure, ? Likely multifactorial, ? Systolic CHF, known EF of 40% ?, Multifocal right lung pneumonia ? Also COPD exacerbation ? Plan, ? Fluid restrictions at 1000 cc, ? 1 dose of IV Lasix 40 mg, ? Monitor creatinine monitor urine output, monitor potassium ? Sputum cultures, blood cultures, Pro-Pelon, CRP, respiratory viral panel, ? Rocephin, azithromycin, ?Hold off on further steroids ? Monitor respiratory status closely, ? DuoNeb, budesonide, ? Full code, ? Lovenox for DVT prophylaxis Chest pain -Cardiac cath from 2021 -No significant left main disease.? 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 Mild to moderate diffuse disease in circumflex artery. A small caliber second obtuse marginal artery was found to have severe diffuse disease. Severe diffuse disease of the right coronary artery with total occlusion of the PDA branch, at the ostium. Patent [place] to LAD and a venous graft to the PDA. Total occlusion of the venous grafts to the obtuse marginal and diagonal arteries, at the proximal anastomotic sites. Features of severe left ventricular ?CONCLUSIONS ?Mildly dilated left-ventricular with reduced ejection fraction ?of? 45%. ?Diffusely hypokinetic left-ventricule. ?Moderately increased left atrial size. ?Mildly increased right atrial size. ?Thickened mitral valve. ?Thickened tricuspid valve. ?There is no pericardial effusion. ?There are no intracardiac masses. ?Trace tricuspid valve regurgitation. ?Estimated pulmonary artery peak systolic pressure 46 mm Hg ?Compared to the study from 05/20/2022, no significant changes in ?the 2D? findings. ? Continues to complain of intermittent chest pain serial EKGs, serial troponins, telemetry monitoring, ? Continue aspirin, statin ? Continue to monitor chest pain Pneumonia, ? As above, no ? CT chest CT/CT chest wo con [id number] IMPRESSION: Multifocal right lung opacities likely infectious/inflammatory.? ? Small right and trace left pleural effusion ? COPD exacerbation, as above, Type 2 diabetes mellitus, continue Lantus 30 units twice daily, with a moderate dose sliding scale Full code ? Lovenox for DVT prophylaxis . 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
[2023-08-15] MEDS: enoxaparin 40 mg/0.4 mL Syringe SUBCUT (16:17)
[2023-08-15] MEDS: pantoprazole 40 mg SDV IVP (16:18)
[2023-08-15] MEDS: cefTRIAXone 1,000 MG in sodium chloride 0.9% (plus) 50 ML 100 MG IV (16:19)
[2023-08-15] MEDS: azithromycin 500 MG in sodium chloride 0.9% 250 ML 250 MG IV (16:19)
[2023-08-15 17:10] LABS: Glucose Point of Care 169 mg/dL (70-110)
[2023-08-15] MEDS: insulin lispro 100 unit/1 mL SUBCUT (18:30)
[2023-08-15] MEDS: insulin glargine 100 units/1 mL 38 UNIT SUBCUT (18:30)
[2023-08-15 20:35] LABS: Glucose Point of Care 228 mg/dL (70-110)
[2023-08-15] MEDS: atorvastatin 40 mg Tablet 20 MG PO (21:14)
[2023-08-16] VITALS (17 sets, daily range): BP systolic 121–130; BP diastolic 61–68; PULSE 79–96; RESP 12–25; TEMP 36.5–36.7; O2SAT 92–96
[2023-08-16 04:20] LABS: Basophils # 0.1 10^3/uL (0.0-0.1); Basophils % 0.9 %; Eosinophils # 1.2 10^3/uL (0.0-0.8); Eosinophils % 11.7 %; Hematocrit 37.5 % (37-53); Lymphocytes # 1.2 10^3/uL (0.8-4.8); Lymphocytes % 12.4 %; Mean Corpuscular HGB Conc 31.5 g/dL (30-55); Mean Corpuscular Hemoglobin 27.9 pg (27-33); Mean Corpuscular Volume 88.7 fl (82-101); Mean Platelet Volume 10.5 fL (7.4-10.4); Monocytes # 0.9 10^3/uL (0.2-0.9); Monocytes % 8.9 %; Neutrophils # 6.57 10^3/uL (1.8-7.7); Neutrophils % 65.6 %; Nucleated Red Blood Cells % 0 %; Platelet Count 248 10^3/cmm (157-399); Red Blood Count 4.23 10^6/uL (3.85-5.65); Red Cell Distribution Width 16.3 % (12.1-15.1); White Blood Count 10.01 10^3/uL (3.29-11.43)
[2023-08-16 04:41] LABS: Alanine Aminotransferase 10 U/L (0-41); Albumin Level 3.9 g/dL (3.5-5.2); Alkaline Phosphatase 75 U/L (40-130); Anion Gap 14.9 (5-19); Aspartate Amino Transferase 16 U/L (0-40); Blood Urea Nitrogen 44 mg/dL (8-23); Calcium 9.3 mg/dL (8.5-10.5); Carbon Dioxide 27 mmol/L (22-29); Chloride 98 mmol/L (98-107); Globulin 3.2 g/dL (1.3-4.6); Glucose 73 mg/dL (65-115); Magnesium 2.5 mg/dL (1.7-2.3); Osmolality Calculated 292 mOsm/kg (285-295); Phosphorus 3.7 mg/dL (2.5-4.5); Potassium 3.9 mmol/L (3.5-5.1); Sodium 136 mmol/L (136-145); Total Bilirubin 0.5 mg/dL (0.15-1.2); Total Protein 7.1 g/dL (6.6-8.7)
[2023-08-16] MEDS: aspirin 81 mg EC Tablet PO (06:00)
[2023-08-16] MEDS: insulin glargine 100 units/1 mL 38 UNIT SUBCUT ×2 (06:00→18:19)
[2023-08-16 06:28] LABS: Glucose Point of Care 61 mg/dL (70-110)
[2023-08-16] MEDS: ipratropium-albuterol 3 mL Neb INHALATION ×2 (07:31→20:34)
[2023-08-16] MEDS: budesonide 0.5 mg/2 mL Neb INHALATION ×2 (07:31→20:34)
--- NOTE | 2023-08-16 08:56 | PC.SOCIAL ---
IMM Update pg 2 of IMM updated and reviewed w/ patient. Copy provided and copy dated, initialed and placed in chart.
[2023-08-16] MEDS: cholecalciferol (vitamin D3) 1,000 unit Tablet 1000 UNIT PO (09:18)
[2023-08-16] MEDS: FUROsemide 10 mg/mL SDV 4mL 40 MG IVP ×2 (09:19→18:16)
[2023-08-16] MEDS: metOLazone 5 MG Tablet PO (09:19)
[2023-08-16] MEDS: magnesium oxide 400 mg tablet PO (09:19)
[2023-08-16] MEDS: clopidogrel 75 mg Tablet PO (09:19)
[2023-08-16] MEDS: potassium chloride ER 20 mEq Tablet 40 MEQ PO (09:19)
[2023-08-16] MEDS: hyDRALAzine 25 mg Tablet PO ×3 (09:19→20:52)
[2023-08-16] MEDS: losartan 50 mg Tablet 100 MG PO (09:19)
[2023-08-16] MEDS: isosorbide mononitrate ER 30 mg Tablet PO ×2 (09:19→18:15)
--- NOTE | 2023-08-16 11:57 | P.PN_ITS ---
Subjective Subjective: Patient was seen this morning, he continues to have lower extremity pitting edema, shortness of breath, his nonproductive cough persist, no phlegm Vitals/I&O/Wt Last Vital Signs Temp 97.9 F 08/16/23 11:41 Pulse 79 08/16/23 11:41 Resp 19 H 08/16/23 11:41 BP 130/64 08/16/23 11:41 Pulse Ox 92 08/16/23 11:41 O2 Del Method Nasal Cannula 08/16/23 11:41 O2 Flow Rate 3 08/16/23 07:31 FiO2 40 08/16/23 00:12 08/15/23 08/16/23 08/16/23 22:59 06:59 14:59 Intake Total 900 / 1620 150 / 1770 360 / 360 Output Total 575 / 3925 500 / 4425 350 / 350 Balance 325 / -2305 -350 / -2655 Weight last 48 hrs Weight 104.825 kg Physical Exam Const: COMMON NORMALS: no acute distress and patient oriented x3 Resp: COMMON NORMALS: normal respiratory effort, No retractions, No use of accessory muscles and clear to auscultation bilaterally AUSCULTATION: clear to auscultation bilaterally Cardio: COMMON NORMALS: regular rate, regular rhythm, S1 normal heart sound present and S2 normal heart sound present RATE: regular rate RHYTHM: regular rhythm HEART SOUNDS: S1 normal heart sound present and S2 normal heart sound present GI: COMMON NORMALS: Normal to inspection, nondistended, normoactive bowel sounds present and non-tender Extremity: NARRATIVE EXTREMITY EXAM: 1+ pitting edema bilateral extremity Neuro: COMMON NORMALS: patient oriented x3 Psych: COMMON NORMALS: mental status grossly normal Data 08/16/23 03:28 08/16/23 03:28 Micro: Microbiology 08/13/23 17:25 Gram Stain - Final Sputum - Expectorated Sputum Sputum Culture - Final A&P Assessment and plan (1) Acute hypoxic respiratory failure: (2) Asthma-COPD overlap syndrome: (3) 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: (4) Hyperlipidemia: (5) Diabetes: (6) WHIT (acute kidney injury): (7) Hx of CABG: (8) Anemia: (9) CKD (chronic kidney disease): (10) Hypertension: Qualifiers: Hypertension type: essential hypertension Qualified Code(s): I10 - Essential (primary) hypertension (11) Peripheral arterial occlusive disease: (12) Chest pain: (13) Systolic CHF, acute: (14) Pneumonia: Qualifiers: Pneumonia type: due to unspecified organism Laterality: bilateral Lung location: unspecified part of lung Qualified Code(s): J18.9 - Pneumonia, unspecified organism (15) COPD exacerbation: Plan Acute hypoxic respiratory failure, ? Likely multifactorial, ? Systolic CHF, known EF of 40% ?, Multifocal right lung pneumonia ? Also COPD exacerbation ? Plan, ? Fluid restrictions at 1000 cc, ?-4 L yesterday, 2 doses of IV Lasix today with metolazone continues to have 2+ pitting edema ? Monitor creatinine monitor urine output, monitor potassium ? Sputum cultures, blood cultures, Pro-Pelon, CRP, respiratory viral panel, ? Rocephin, azithromycin, ?Hold off on further steroids ? Monitor respiratory status closely, ? DuoNeb, budesonide, ? Full code, ? Lovenox for DVT prophylaxis Chest pain -Cardiac cath from 2021 -No significant left main disease.? 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 Mild to moderate diffuse disease in circumflex artery. A small caliber second obtuse marginal artery was found to have severe diffuse disease. Severe diffuse disease of the right coronary artery with total occlusion of the PDA branch, at the ostium. Patent [place] to LAD and a venous graft to the PDA. Total occlusion of the venous grafts to the obtuse marginal and diagonal arteries, at the proximal anastomotic sites. Features of severe left ventricular ?CONCLUSIONS ?Mildly dilated left-ventricular with reduced ejection fraction ?of? 45%. ?Diffusely hypokinetic left-ventricule. ?Moderately increased left atrial size. ?Mildly increased right atrial size. ?Thickened mitral valve. ?Thickened tricuspid valve. ?There is no pericardial effusion. ?There are no intracardiac masses. ?Trace tricuspid valve regurgitation. ?Estimated pulmonary artery peak systolic pressure 46 mm Hg ?Compared to the study from 05/20/2022, no significant changes in ?the 2D? findings. ? Continues to complain of intermittent chest pain serial EKGs, serial troponins, telemetry monitoring, ? Continue aspirin, statin ? Continue to monitor chest pain Pneumonia, ? As above, no ? CT chest CT/CT chest wo con [id number] IMPRESSION: Multifocal right lung opacities likely infectious/inflammatory.? ? Small right and trace left pleural effusion ? COPD exacerbation, as above, Type 2 diabetes mellitus, continue Lantus 30 units twice daily, with a moderate dose sliding scale Full code ? Lovenox for DVT prophylaxis . 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
[2023-08-16 12:14] LABS: Glucose Point of Care 143 mg/dL (70-110)
[2023-08-16] MEDS: insulin lispro 100 unit/1 mL SUBCUT (12:22)
[2023-08-16 17:05] LABS: Glucose Point of Care 153 mg/dL (70-110)
[2023-08-16] MEDS: enoxaparin 40 mg/0.4 mL Syringe SUBCUT (18:14)
[2023-08-16] MEDS: pantoprazole 40 mg SDV IVP (18:16)
[2023-08-16] MEDS: cefTRIAXone 1,000 MG in sodium chloride 0.9% (plus) 50 ML 100 MG IV (18:17)
[2023-08-16] MEDS: azithromycin 500 MG in sodium chloride 0.9% 250 ML 250 MG IV (18:18)
[2023-08-16] MEDS: atorvastatin 40 mg Tablet 20 MG PO (20:52)
[2023-08-16 22:11] LABS: Glucose Point of Care 245 mg/dL (70-110)
[2023-08-17] VITALS (10 sets, daily range): BP systolic 110–133; BP diastolic 60–95; PULSE 74–86; RESP 14–20; TEMP 36.5–36.6; O2SAT 94–98
[2023-08-17 04:06] LABS: Basophils # 0.1 10^3/uL (0.0-0.1); Basophils % 0.9 %; Eosinophils # 1.3 10^3/uL (0.0-0.8); Eosinophils % 14.1 %; Hematocrit 38.5 % (37-53); Lymphocytes # 1.2 10^3/uL (0.8-4.8); Lymphocytes % 12.8 %; Mean Corpuscular HGB Conc 31.2 g/dL (30-55); Mean Corpuscular Hemoglobin 28.2 pg (27-33); Mean Corpuscular Volume 90.6 fl (82-101); Mean Platelet Volume 9.6 fL (7.4-10.4); Neutrophils % 60.8 %; Nucleated Red Blood Cells % 0 %; Platelet Count 215 10^3/cmm (157-399); Red Blood Count 4.25 10^6/uL (3.85-5.65); Red Cell Distribution Width 15.9 % (12.1-15.1); White Blood Count 9.06 10^3/uL (3.29-11.43)
[2023-08-17 04:30] LABS: Alanine Aminotransferase 12 U/L (0-41); Albumin Level 3.8 g/dL (3.5-5.2); Alkaline Phosphatase 76 U/L (40-130); Anion Gap 14.9 (5-19); Aspartate Amino Transferase 15 U/L (0-40); Blood Urea Nitrogen 38 mg/dL (8-23); Calcium 9.4 mg/dL (8.5-10.5); Carbon Dioxide 28 mmol/L (22-29); Chloride 99 mmol/L (98-107); Globulin 3.2 g/dL (1.3-4.6); Glucose 76 mg/dL (65-115); Magnesium 2.2 mg/dL (1.7-2.3); Osmolality Calculated 294 mOsm/kg (285-295); Potassium 3.9 mmol/L (3.5-5.1); Sodium 138 mmol/L (136-145); Total Bilirubin 0.4 mg/dL (0.15-1.2)
[2023-08-17 05:15] LABS: NT Pro B Type Natriuretic Pept 3897 pg/mL (0-125)
[2023-08-17] MEDS: aspirin 81 mg EC Tablet PO (06:13)
[2023-08-17 06:43] LABS: Glucose Point of Care 80 mg/dL (70-110)
[2023-08-17] MEDS: insulin glargine 100 units/1 mL 38 UNIT SUBCUT (08:55)
[2023-08-17] MEDS: losartan 50 mg Tablet 100 MG PO (08:57)
[2023-08-17] MEDS: magnesium oxide 400 mg tablet PO (08:57)
[2023-08-17] MEDS: cholecalciferol (vitamin D3) 1,000 unit Tablet 1000 UNIT PO (08:57)
[2023-08-17] MEDS: hyDRALAzine 25 mg Tablet PO (08:57)
[2023-08-17] MEDS: clopidogrel 75 mg Tablet PO (08:57)
[2023-08-17] MEDS: isosorbide mononitrate ER 30 mg Tablet PO (08:57)
[2023-08-17] MEDS: budesonide 0.5 mg/2 mL Neb INHALATION (09:24)
[2023-08-17] MEDS: ipratropium-albuterol 3 mL Neb INHALATION (09:24)
[2023-08-17] MEDS: FUROsemide 10 mg/mL SDV 4mL 40 MG IVP (09:57)
[2023-08-17] MEDS: metOLazone 5 MG Tablet PO (09:57)
--- NOTE | 2023-08-17 11:19 | P.DS_ITS ---
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: Status: Acute (4) Hyperlipidemia: Status: Acute (5) Diabetes: Status: Acute (6) WHIT (acute kidney injury): Status: Acute (7) Hx of CABG: Status: Acute (8) Anemia: Status: Acute (9) CKD (chronic kidney disease): Status: Acute (10) Hypertension: Status: Acute Qualifiers: Hypertension type: essential hypertension Qualified Code(s): I10 - Essential (primary) hypertension (11) Peripheral arterial occlusive disease: Status: Acute (12) Chest pain: Status: Inactive (13) Systolic CHF, acute: Status: Acute (14) Pneumonia: Status: Acute Qualifiers: Laterality: bilateral Lung location: unspecified part of lung Pneumonia type: due to unspecified organism Qualified Code(s): J18.9 - Pneumonia, unspecified organism (15) COPD exacerbation: Status: Acute Reason for Visit Reason for Visit: SOB Hospital Course Hospital Course Torey Kaba is a 73 year old male with a past medical history of COPD, emphysema on 5 L, CAD PCI/CABG, history of insulin-dependent type 2 diabetes mellitus, hypertension, hyperlipidemia, obesity, diastolic CHF history of smoking, who presents to [facility] for shortness of breath.? Patient tells me for the last 3 months, he has been feeling increasingly short of breath, short of breath with exertion, he has been sleeping in a recliner, also with bilateral lower extremity edema, complaining intermittent chest discomfort, with the shortness of breath improving with nitroglycerin.? He also produces a chronic productive cough, now with had more brownish phlegm in it, normally is clear, does report intermittent fevers, chills, no hemoptysis, no calf pain, no calf swelling, recent surgeries For patient's acute hypoxic respiratory failure likely multifactorial from systolic CHF, multifocal pneumonia, COPD exacerbation, received inpatient diuresis, diuresed over 5 L, will be discharged on his home Lasix, with potassium replacement, creatinine at discharge 1.8 For multifocal pneumonia, managed with broad-spectrum antibiotic therapy, overall clinically improved, discharged on 5 remaining days of doxycycline, Had complaints of chest pain Chest pain -Cardiac cath from 2021 -No significant left main disease.? 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 Mild to moderate diffuse disease in circumflex artery. A small caliber second obtuse marginal artery was found to have severe diffuse disease. Severe diffuse disease of the right coronary artery with total occlusion of the PDA branch, at the ostium. Patent [place] to LAD and a venous graft to the PDA. Total occlusion of the venous grafts to the obtuse marginal and diagonal arteries, at the proximal anastomotic sites. Features of severe left ventricular ?CONCLUSIONS ?Mildly dilated left-ventricular with reduced ejection fraction ?of? 45%. ?Diffusely hypokinetic left-ventricule. ?Moderately increased left atrial size. ?Mildly increased right atrial size. ?Thickened mitral valve. ?Thickened tricuspid valve. ?There is no pericardial effusion. ?There are no intracardiac masses. ?Trace tricuspid valve regurgitation. ?Estimated pulmonary artery peak systolic pressure 46 mm Hg ?Compared to the study from 05/20/2022, no significant changes in ?the 2D? findings. ? Likely type I versus type II NSTEMI, supply demand ischemia from respiratory f ailure as above, but cannot rule out underlying cardiac etiology ? Follow-up with cardiology as outpatient, continue aspirin, statin, Plavix ? If any recurrent chest pain to go to emergency room Physical Exam Const: COMMON NORMALS: no acute distress and patient oriented x3 Resp: COMMON NORMALS: normal respiratory effort, No retractions, No use of accessory muscles and clear to auscultation bilaterally AUSCULTATION: clear to auscultation bilaterally Cardio: COMMON NORMALS: regular rate, regular rhythm, S1 normal heart sound present and S2 normal heart sound present RATE: regular rate RHYTHM: regular rhythm HEART SOUNDS: S1 normal heart sound present and S2 normal heart sound present GI: COMMON NORMALS: Normal to inspection, nondistended, normoactive bowel sounds present and non-tender Extremity: COMMON NORMALS: no pedal edema Neuro: COMMON NORMALS: patient oriented x3 Psych: COMMON NORMALS: mental status grossly normal Discharge Data Studies Completed and Pending Completed Studies During Hospitalization Category Date Time Status CT chest wo con [id number] Stat Cat Scan 08/13/23 14:15 Completed XR chest 1V portable [id number] Stat Exams 08/13/23 12:21 Completed CV. echo complete* [id number] Stat Ultrasound 08/13/23 14:15 Completed Pending at discharge Category Date Time Status Blood Culture Stat Lab 08/13/23 14:59 Results Complete Blood Count w/Auto AM LABS Lab 08/18/23 04:00 Ordered Complete Blood Count w/Auto AM LABS Lab 08/19/23 04:00 Ordered Comprehensive Metabolic Panel AM LABS Lab 08/18/23 04:00 Ordered Comprehensive Metabolic Panel AM LABS Lab 08/19/23 04:00 Ordered Magnesium AM LABS Lab 08/18/23 04:00 Ordered Magnesium AM LABS Lab 08/19/23 04:00 Ordered NT Pro B Type Natriuretic Pept QAM Lab 08/18/23 06:00 Ordered NT Pro B Type Natriuretic Pept QAM Lab 08/19/23 06:00 Ordered Phosphorus AM LABS Lab 08/18/23 04:00 Ordered Phosphorus AM LABS Lab 08/19/23 04:00 Ordered Radiology Impressions Chest X-Ray 08/13/23 12:21 IMPRESSION: Increased bilateral lower lobe opacities from prior comparison 06/03/2023, potentially reflecting any combination of atelectasis or infiltrate. Chest CT 08/13/23 14:15 IMPRESSION: Multifocal right lung opacities likely infectious/inflammatory. Small right and trace left pleural effusion Laboratory Results WBC 9.06 10^3/uL (3.29-11.43) 08/17/23 03:50 RBC 4.25 10^6/uL (3.85-5.65) 08/17/23 03:50 Hgb 12.00 g/dL (11.27-16.99) 08/17/23 03:50 Hct 38.5 % (37-53) 08/17/23 03:50 MCV 90.6 fl (82-101) 08/17/23 03:50 MCH 28.2 pg (27-33) 08/17/23 03:50 MCHC 31.2 g/dL (30-55) 08/17/23 03:50 RDW 15.9 % (12.1-15.1) H 08/17/23 03:50 Plt Count 215 10^3/cmm (157-399) 08/17/23 03:50 MPV 9.6 fL (7.4-10.4) 08/17/23 03:50 Neut % (Auto) 60.8 % 08/17/23 03:50 Lymph % (Auto) 12.8 % 08/17/23 03:50 [place] % (Auto) 11.0 % 08/17/23 03:50 Eos % (Auto) 14.1 % 08/17/23 03:50 Baso % (Auto) 0.9 % 08/17/23 03:50 Neut # (Auto) 5.50 10^3/uL (1.8-7.7) 08/17/23 03:50 Lymph # (Auto) 1.2 10^3/uL (0.8-4.8) 08/17/23 03:50 [place] # (Auto) 1.0 10^3/uL (0.2-0.9) H 08/17/23 03:50 Eos # (Auto) 1.3 10^3/uL (0.0-0.8) H 08/17/23 03:50 Baso # (Auto) 0.1 10^3/uL (0.0-0.1) 08/17/23 03:50 Nucleated RBC % (auto) 0 % 08/17/23 03:50 Nucleated RBCs # 0.0 /100WBC 08/17/23 03:50 Specimen Type Arterial 08/13/23 12:27 Sample Site Radial, left 08/13/23 12:27 ABG pH 7.39 (7.35-7.45) 08/13/23 12:27 ABG pCO2 39.6 mmHg (35-45) 08/13/23 12:27 ABG pO2 61.9 mmHg (80.0-100.0) L 08/13/23 12:27 ABG HCO3 24.2 mmol/L (22-26) 08/13/23 12:27 ABG O2 Saturation 91.2 08/13/23 12:27 ABG Base Excess -0.7 mmol/L (-2.0-2.0) 08/13/23 12:27 Sam Test Pos 08/13/23 12:27 A-a O2 Gradient 5.0 mmHg (5-10) 08/13/23 12:27 Hematocrit 38.4 % (42-52) L 08/13/23 12:27 Hgb O2 Saturation 89.0 % (95-100) L 08/13/23 12:27 Carboxyhemoglobin 2.1 %THgb (0.4-20.1) 08/13/23 12:27 Methemoglobin 0.4 % (0.4-1.5) 08/13/23 12:27 Total Hemoglobin 12.5 g/dL (14-18) L 08/13/23 12:27 Sodium 138.0 mmol/L (131-143) 08/13/23 12:27 Potassium 4.4 mmol/L (3.5-5.0) 08/13/23 12:27 Glucose 122.0 mg/dL (70-115) H 08/13/23 12:27 Ionized Calcium 1.2 mmol/L (1.1-1.4) 08/13/23 12:27 O2 Delivery Device Nc 08/13/23 12:27 O2 Liters/Min 5.0 % 08/13/23 12:27 Electronic Imaging System Operator ID [place] 08/13/23 12:27 Sodium 138 mmol/L (136-145) 08/17/23 03:50 Potassium 3.9 mmol/L (3.5-5.1) 08/17/23 03:50 Chloride 99 mmol/L (98-107) 08/17/23 03:50 Carbon Dioxide 28 mmol/L (22-29) 08/17/23 03:50 Anion Gap 14.9 (5-19) 08/17/23 03:50 BUN 38 mg/dL (8-23) H 08/17/23 03:50 Creatinine 1.8 mg/dL (0.7-1.2) H 08/17/23 03:50 GFR Calculation Not Reportable 08/17/23 03:50 Glucose 76 mg/dL (65-115) 08/17/23 03:50 POC Glucose 80 mg/dL (70-110) 08/17/23 06:26 Estimat Average Glucose 134 08/14/23 03:23 Hemoglobin A1c 6.3 % (4.0-6.0) H 08/14/23 03:23 Calculated Osmolality 294 mOsm/kg (285-295) 08/17/23 03:50 Lactic Acid 0.9 mmol/L (0.5-2.2) 08/14/23 03:23 Calcium 9.4 mg/dL (8.5-10.5) 08/17/23 03:50 Phosphorus 4.0 mg/dL (2.5-4.5) 08/17/23 03:50 Magnesium 2.2 mg/dL (1.7-2.3) 08/17/23 03:50 Total Bilirubin 0.4 mg/dL (0.15-1.2) 08/17/23 03:50 AST 15 U/L (0-40) 08/17/23 03:50 ALT 12 U/L (0-41) 08/17/23 03:50 Alkaline Phosphatase 76 U/L (40-130) 08/17/23 03:50 Troponin T Baseline 29 ng/L (0-15) H 08/14/23 16:41 Troponin T 120 Minute 39.29 ng/L (0-15) H 08/14/23 18:45 Delta Troponin T 10.29 ABS# (0-10) H* 08/14/23 18:45 Troponin T Hi Sens 6Hr 40.63 ng/L (0-15) H 08/14/23 22:41 Troponin T Hi Sens 6Hr Delta 11.63 ng/L (0-12) 08/14/23 22:41 C-Reactive Protein 78.3 mg/L (0.0-4.9) H 08/13/23 12:36 NT-Pro-B Natriuret Pep 3897 pg/mL (0-125) H 08/17/23 03:50 Total Protein 7.0 g/dL (6.6-8.7) 08/17/23 03:50 Albumin 3.8 g/dL (3.5-5.2) 08/17/23 03:50 Globulin 3.2 g/dL (1.3-4.6) 08/17/23 03:50 Triglycerides 51 mg/dL (0-150) 08/14/23 03:23 Cholesterol 114 mg/dL (0-200) 08/14/23 03:23 LDL Cholesterol, Calc 73 mg/dL (50-129) 08/14/23 03:23 HDL Cholesterol 31 mg/dL (60-100) L 08/14/23 03:23 LDL/HDL Ratio 2.35 RATIO (0.00-3.22) 08/14/23 03:23 Cholesterol/HDL Ratio 3.68 mg/dL (1.0-5.00) 08/14/23 03:23 Procalcitonin 0.15 ng/mL (0-0.5) 08/13/23 12:36 TSH 0.71 uIU/mL (0.27-4.20) 08/14/23 03:23 Urine Color Yellow (Yellow) 08/13/23 17:25 Urine Appearance Clear (CLEAR) 08/13/23 17:25 Urine pH 6.5 (5-7) 08/13/23 17:25 Ur Specific [place] 1.010 (1.005-1.030) 08/13/23 17:25 Urine Protein Neg (Negative) 08/13/23 17:25 Urine Glucose (UA) Norm (Normal) 08/13/23 17:25 Urine Ketones Negative (Negative) 08/13/23 17:25 Urine Blood Neg (Negative) 08/13/23 17:25 Urine Nitrate Negative (Negative) 08/13/23 17:25 Urine Bilirubin Neg (Negative) 08/13/23 17:25 Urine Urobilinogen Neg mg/dL (Negative) 08/13/23 17:25 Ur Leukocyte Esterase Negative (Negative) 08/13/23 17:25 Nasal Influ A H1 2009 PCR Not detected (NOT DETECT) 08/13/23 17:45 Adenovirus (PCR) Not detected (NOT DETECT) 08/13/23 17:45 C. pneumoniae DNA (PCR) Not detected (NOT DETECT) 08/13/23 17:45 Coronavirus 229E (PCR) Not detected (NOT DETECT) 08/13/23 17:45 Human Metapneumovir PCR Not detected (NOT DETECT) 08/13/23 17:45 Influenza A (H1) PCR Not detected (NOT DETECT) 08/13/23 17:45 Influenza A (H3) PCR Not detected (NOT DETECT) 08/13/23 17:45 Influenza Type A (PCR) Not detected (NOT DETECT) 08/13/23 17:45 Influenza Type B (PCR) Not detected (NOT DETECT) 08/13/23 17:45 M. pneumoniae (PCR) Not detected (NOT DETECT) 08/13/23 17:45 Parainfluenza 1 (PCR) Not detected (NOT DETECT) 08/13/23 17:45 Parainfluenza 2 (PCR) Not detected (NOT DETECT) 08/13/23 17:45 Parainfluenza 3 (PCR) Not detected (NOT DETECT) 08/13/23 17:45 Parainfluenza 4 (PCR) Not detected (NOT DETECT) 08/13/23 17:45 RSV Type A (PCR) Not detected (NOT DETECT) 08/13/23 17:45 RSV Type B (PCR) Not detected (NOT DETECT) 08/13/23 17:45 Entero/Rhino (PCR) Not detected (NOT DETECT) 08/13/23 17:45 SARS-CoV-2 (PCR) Not detected (NOT DETECT) 08/13/23 17:45 Vitals Last Vital Signs Temp 97.7 F 08/17/23 11:08 Pulse 81 08/17/23 11:08 Resp 20 H 08/17/23 11:08 BP 133/74 08/17/23 11:08 Pulse Ox 98 08/17/23 11:08 O2 Del Method Nasal Cannula 08/17/23 11:08 O2 Flow Rate 3 08/17/23 09:25 FiO2 40 08/17/23 00:56 Discharge Plan Discharge Patient Disposition: Home Condition: Stable Prescriptions: New doxycycline hyclate 100 mg tablet 100 mg PO BID 5 Days Qty: 10 0RF potassium chloride [K-Tab] 10 mEq tablet extended release 10 meq PO BID 30 Days Qty: 60 0RF Continued cetirizine 10 mg capsule 10 mg PO BEDTIME fluticasone propionate [Allergy Relief (fluticasone)] 50 mcg/actuation spray,suspension 1 spray INTRANASAL BID Rx Instructions: administer into each nostril hydralazine 25 mg tablet 25 mg PO TID Qty: 90 3RF albuterol sulfate [ProAir HFA] 90 mcg/actuation HFA aerosol inhaler 2 puff inhalation Q6H PRN (Reason: Shortness Of Breath Or Wheezing) clopidogrel 75 mg tablet 75 mg PO BEDTIME lovastatin 40 mg tablet 20 mg PO BEDTIME methocarbamol 750 mg tablet 750 mg PO Q12H PRN (Reason: Muscle Pain) Coricidin HBP Chest Ayaan-Cough 10-200 mg capsule 1 tab-cap PO Q4H PRN (Reason: Cold Symptoms) ascorbate calcium (vitamin C) 500 mg tablet 500 mg PO QAM magnesium oxide 400 mg magnesium capsule 400 mg PO QAM (DME) 2 Pairs of Diabetic Shoes With 2 Custom Molded Inserts See Rx Instructions .Route .MEDSUPPLY Qty: 1 0RF Rx Instructions: Directed by S[facility] P [facility] furosemide 40 mg tablet 40 mg PO BID aspirin 81 mg Tablet,Delayed Release (Dr/Ec) 81 mg PO QAM Wixela Inhub 250-50 mcg/dose Blister With Device 1 inh INHALATION BID Lantus U-100 Insulin 100 unit/mL Solution 38 unit SUBCUT BID albuterol sulfate 2.5 mg /3 mL (0.083 %) Solution For Nebulization 2.5 mg inhalation BEDTIME Vitamin B-12 1,000 mcg Tablet 1,000 mcg PO QAM Nitrostat 0.4 mg Tablet, Sublingual 0.4 mg SUBLINGUAL Q5M PRN (Reason: Chest Pain) Rx Instructions: do not exceed 3 doses per episode Lactaid 3,000 unit Tablet 3,000 unit PO QID PRN (Reason: unknown) Rx Instructions: administer with meals and/or snacks metformin 500 mg Tablet Extended Release 24 Hr 250 mg PO BID Vitamin D3 10 mcg (400 unit) Tablet 400 unit PO QAM vitamin E 268 mg (400 unit) Capsule 1 cap PO QAM diclofenac sodium 1 % Gel 2 g TOPICAL QID PRN (Reason: Pain) Rx Instructions: apply to single elbow, wrist or hand; for hand includes palm/fingers/back of hand ammonium lactate 12 % lotion 1 applic topical DAILY isosorbide mononitrate 30 mg tablet extended release 24 hr 30 mg PO QAM valsartan 160 mg tablet See Rx Instructions .ROUTE .COMPLEX Rx Instructions: 80mg (1/2 tab) po in the am and 160mg (1 tab) po at bedtime Mucinex 600 mg tablet extended release 12hr 1,200 mg PO Q12H Changed insulin aspart U-100 [Novolog FlexPen U-100 Insulin] 100 unit/mL (3 mL) in sulin pen See Rx Instructions .ROUTE .COMPLEX Qty: 15 0RF Rx Instructions: Inject, subcu, 3 times daily, after meals, based on sliding scale provided Discontinued carvedilol [Coreg] 25 mg tablet 25 mg PO BID Qty: 60 0RF Rx Instructions: must administer with a meal/food azithromycin 250 mg Tablet See Rx Instructions .ROUTE .COMPLEX Rx Instructions: as directed on package amlodipine 10 mg Tablet 10 mg PO QAM Discharge Orders: Discharge Order (Routine); Ordered 08/17/23 Ordered By: Ben Smith Referrals: Datar,Camilo Rodríguez MD [Physician] - 1 month Cholo Kelsey MD [Physician] - 1 week Bill Prescott, [Primary Care Provider] - (Please call for follow-up with-in 4 to 7 days. ) Discharge Diet: Cardiac Discharge Activity: Resume usual activity Patient Instructions: Doxycycline (By mouth) (Acticlate, Adoxa, Avidoxy, Monodox, Doryx), Potassium Chloride (By mouth) (K-Dur, K-Sidnhu, K-Tab, Rogerio Mur), Acute Kidney Injury (DC), CHF Stoplight, COPD Stoplight, Opioid Safety, Pneumonia Stoplight Activity Restrictions/Additional Instructions: -Please monitor your blood sugars closely -Monitor your blood sugars 3 times daily as after meals -Please record your blood sugars, and a blood sugar log -For your NovoLog -Please inject blood sugar after meals based on sliding scale provided -Do not inject insulin if you do not eat as hypoglycemia kills -This is a NovoLog sliding scale -Insulin sliding ?fingerstick? Insulin ?141-180?0 units/sq 181-220?2 units/sq ?221-260?4 units/sq ?261-300 6 units/sq ?301-350?8 units/sq ?351-400 10 units/sq ?401-450?12 units/sq >450? 14units/sq -If your blood sugar is greater than 500 go to the emergency room -If your blood sugar is less than 60 or at anytime you feel lightheaded or dizzy or diaphoretic or have chest palpitations check your blood sugar, and eat a hard candy or drink orange juice and go immediately to the emergency room -Remember hypoglycemia kills, so if his blood sugar is less than 60 we have to increase it by taking in a sugary meal such as a hard candy or orange juice and go to the emergency room -If you have any questions please call us where here to help ? Please limit fluid intake to 1 to 1-1/2 L of fluid a day, ? 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
[2023-08-17 11:32] LABS: Glucose Point of Care 172 mg/dL (70-110)
[2023-08-17] MEDS: insulin lispro 100 unit/1 mL SUBCUT (12:10)
== END 2023-08-17 13:38 | disposition home or self-care (01) | DRG 189 ==
LOC: ER 12:35 → CSU 14:25
PROVIDERS: Admitting Provider Family Medicine; Emergency Provider Family Medicine; PCP Emergency Medicine Emergency Medical Services; Visit Provider Family Medicine
DX: J96.01 Acute respiratory failure with hypoxia (principal); J18.9 Pneumonia, unspecified organism; I50.23 Acute on chronic systolic (congestive) heart failure; N17.9 Acute kidney failure, unspecified; I13.0 Hypertensive heart and chronic kidney disease with heart failure and stage 1 through stage 4 chronic kidney disease, or unspecified chronic kidney disease; J44.0 Chronic obstructive pulmonary disease with (acute) lower respiratory infection; Z99.81 Dependence on supplemental oxygen; D64.9 Anemia, unspecified; Z87.891 Personal history of nicotine dependence; I25.2 Old myocardial infarction; E78.5 Hyperlipidemia, unspecified; E11.51 Type 2 diabetes mellitus with diabetic peripheral angiopathy without gangrene; Z79.4 Long term (current) use of insulin; E11.22 Type 2 diabetes mellitus with diabetic chronic kidney disease; N18.32 Chronic kidney disease, stage 3b; I25.10 Atherosclerotic heart disease of native coronary artery without angina pectoris; Z95.1 Presence of aortocoronary bypass graft; Z95.5 Presence of coronary angioplasty implant and graft; J43.9 Emphysema, unspecified
CPT/HCPCS: 36415; 36416; 36600; 71045; 71250; 80051; 80053; 80061; 81003; 82330; 82805; 82962; 83036; 83605; 83735; 83880; 84100; 84145; 84443; 84484; 85025; 86140; 87040; 87070; 87205; 87486; 87581; 87633; 93005; 93306; 94640; 94660; 94664; 96372; 96374; 96376; 97110; 97161; 97165; 99285; C9113; J0456; J0696; J1100; J1650; J1815; J1940; J7050; J7626

== ENCOUNTER → 2023-08-31 10:04 | Outpatient (BNVA) | payer OTHER, SELFPAY | PROVIDERS: PCP Emergency Medicine Emergency Medical Services; Visit Provider Internal Medicine | DX: M06.00 Rheumatoid arthritis without rheumatoid factor, unspecified site (principal); N18.9 Chronic kidney disease, unspecified; R70.0 Elevated erythrocyte sedimentation rate; M79.10 Myalgia, unspecified site | CPT/HCPCS: 99214 ==

== ENCOUNTER 2023-09-17 12:32 | Emergency (ER) | payer OTHER, SELFPAY ==
[2023-09-17 12:33] VITALS: BP 135/78; PULSE 100; RESP 22; O2SAT 91
--- NOTE | 2023-09-17 12:34 | XRR_ITS ---
PROCEDURE INFORMATION: Exam: XR Chest Exam date and time: 09/17/2023 2:02 PM Age: 73 years old Clinical indication: Shortness of breath; Additional info: SOB TECHNIQUE: Imaging protocol: Radiologic exam of the chest. Views: 1 view. COMPARISON: CT chest con [id number] 08/13/2023 2:31 PM FINDINGS: Lungs: Left basilar pulmonary opacities with morphology at least partially suggestive of scar and/or atelectasis. Component of airspace disease can not be excluded. Interval decrease in pulmonary vascular congestion. Pleural spaces: Unchanged small left pleural effusion . Interval resolution of small right pleural effusion. Heart/Mediastinum: Increased cardiac silhouette again noted. Bones/joints: Prior sternotomy. XR/XR chest 1V portable [id number] IMPRESSION: 1. Interval decrease in pulmonary vascular congestion and resolution of small right effusion. 2. Persistent small left pleural effusion with subjacent basilar opacities least partially secondary to atelectasis and/or scar. Other left basilar pathology including airspace disease can not be excluded. 3. Large cardiac silhouette again noted.
--- NOTE | 2023-09-17 12:47 | ECG_ITS ---
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 Measurements Intervals [place] Rate: 95 P: 37 VT: 229 QRS: 18 QRSD: 150 T: 58 QT: 394 QTc: 497 Interpretive Statements SINUS RHYTHM WITH FIRST DEGREE AV BLOCK POSSIBLE LEFT ATRIAL ENLARGEMENT [-0.1mV P-WAVE IN V1/V2] INDETERMINATE AXIS RIGHT BUNDLE BRANCH BLOCK [120+ ms QRS DURATION, UPRIGHT V1, 40+ ms S IN I/aVL/V4/V5/V6] SEPTAL MYOCARDIAL INFARCTION , OF INDETERMINATE AGE [40+ ms Q WAVE IN V1/V2] Compared to ECG 08/14/2023 18:47:49 Indeterminate axis now present ST (T wave) deviation no longer present Myocardial infarct finding still present Electronically Signed On 09-17-2023 14:49:26 RADIOLOGY TECHNOLOGIST by Robert Fairbanks M.D. [id number]
[2023-09-17 13:11] LABS: Basophils # 0.1 10^3/uL (0.0-0.1); Basophils % 0.8 %; Eosinophils # 0.4 10^3/uL (0.0-0.8); Eosinophils % 3.4 %; Hematocrit 40.4 % (37-53); Lymphocytes # 0.9 10^3/uL (0.8-4.8); Lymphocytes % 8.2 %; Mean Corpuscular HGB Conc 31.9 g/dL (30-55); Mean Corpuscular Hemoglobin 28.4 pg (27-33); Mean Corpuscular Volume 88.8 fl (82-101); Mean Platelet Volume 10.2 fL (7.4-10.4); Monocytes # 0.7 10^3/uL (0.2-0.9); Monocytes % 6.9 %; Neutrophils % 80.2 %; Nucleated Red Blood Cells % 0 %; Platelet Count 251 10^3/cmm (157-399); Red Blood Count 4.55 10^6/uL (3.85-5.65); Red Cell Distribution Width 16.3 % (12.1-15.1); White Blood Count 10.47 10^3/uL (3.29-11.43)
[2023-09-17 13:25] LABS: Alanine Aminotransferase 12 U/L (0-41); Albumin Level 4.1 g/dL (3.5-5.2); Alkaline Phosphatase 84 U/L (40-130); Aspartate Amino Transferase 15 U/L (0-40); Blood Urea Nitrogen 36 mg/dL (8-23); Calcium 9.7 mg/dL (8.5-10.5); Carbon Dioxide 26 mmol/L (22-29); Chloride 100 mmol/L (98-107); Globulin 3.2 g/dL (1.3-4.6); Glucose 110 mg/dL (65-115); Osmolality Calculated 293 mOsm/kg (285-295); Sodium 137 mmol/L (136-145); Total Bilirubin 0.6 mg/dL (0.15-1.2); Total Protein 7.3 g/dL (6.6-8.7)
[2023-09-17 13:34] LABS: NT Pro B Type Natriuretic Pept 3776 pg/mL (0-125)
--- NOTE | 2023-09-17 14:05 | ED_ITS ---
HPI - SOB/Dyspnea 2 General: Chief Complaint: Shortness of Breath/Dyspnea Stated Complaint: gained *8lbs 3 days (thinks he's retaining fluid) Time Seen by Provider: 09/17/23 13:56 History of Present Illness: HPI Narrative: 73-year-old male patient with chronic CH F comes in today for concerns of weight gain of 8 pounds over the last 3 days. Patient appears nontoxic. Patient is chronically on oxygen. Patient reports no increase in shortness of breath. Patient has taken the extra dose of his furosemide. Review of Systems 2 General: Reports: 10 or more systems reviewed and unremarkable except in HPI and below Const: Reports: other (Weight gain) Resp: Reports: dyspnea PFSH ED 2 PFSH: Medical History Acute kidney injury Acute on chronic diastolic (congestive) heart failure Anemia Arthralgia Atherosclerosis of coronary artery of [place] heart without angina pectoris CHF exacerbation CKD (chronic kidney disease) Community acquired pneumonia COPD (chronic obstructive pulmonary disease) Diabetes Hyperlipidemia Hypertension Normochromic normocytic anemia NSTEMI (non-ST elevated myocardial infarction) Pancreatic cyst Pancreatitis Pleural effusion Pneumonia Restrictive lung disease Sacroiliac dysfunction Sepsis Umbilical hernia, incarcerated Surgical History H/O esophagogastroduodenoscopy History of colonoscopy with polypectomy History of coronary angioplasty with insertion of stent Hx of CABG Family History Brother CAD (coronary artery disease) Diabetes Lung disease Sister CAD (coronary artery disease) Diabetes Cancer Lung disease Father CAD (coronary artery disease) Diabetes Lung disease Mother CAD (coronary artery disease) Diabetes Stroke Brother CAD (coronary artery disease) Diabetes Lung disease Brother CAD (coronary artery disease) Diabetes Sister CAD (coronary artery disease) Diabetes Lung disease Sister CAD (coronary artery disease) Diabetes Sister CAD (coronary artery disease) Diabetes Daughter Chronic kidney disease (CKD) Diabetes Denies family history of Clotting disorder Dementia Suicide Anesthesia complication Bleeding disorder Social History Smoking and tobacco/nicotine status: former use of tobacco/nicotine Quit status (tobacco/nicotine): has quit using Year quit tobacco: 1983 [id number] Second hand smoke exposure: No Alcohol intake: former Substance/Drug Use: never Adopted: No Caregiver/support person: Yes Lives independently: Yes Household members: spouse Housing: House Marital status: service: Yes Current occupational status: retired Pets and animals: No Leisure activites: exercise Sexually active: No Do you think of yourself as: Straight/Heterosexual Current gender identity: Male Mayra/Rastafari: Confucianist Special mayra needs: No Agree to transfusion: No Physical Exam 2 Const: COMMON NORMALS: alert HENMT: COMMON NORMALS: normocephalic HEAD & SCALP: normocephalic Neck/C-Spine: COMMON NORMALS: full ROM Resp: AUSCULTATION: diminished lung sounds (Bilateral bases) Cardio: COMMON NORMALS: regular rate and regular rhythm RATE: regular rate RHYTHM: regular rhythm Back/Pelvis: COMMON NORMALS: thoracic and lumbar spine normal to inspection Extremity: NARRATIVE EXTREMITY EXAM: Minimal edema to the lower extremity Neuro: SENSORIUM/ORIENTATION: Yes alert Skin: COMMON NORMALS: turgor normal GENERAL SKIN EXAM: turgor normal Course 2 Vital Signs: Vital signs: Vital Signs Pulse Rate 100 09/17/23 12:33 Respiratory Rate 22 H 09/17/23 12:33 Blood Pressure 135/78 09/17/23 12:33 Pulse Oximetry 91 09/17/23 12:33 Oxygen Delivery Me thod Nasal Cannula 09/17/23 12:33 Oxygen Flow Rate 5 09/17/23 12:33 MDM - SOB/Dyspnea Medical Decision Making 73-year-old male patient comes in today for some increased weight gain and shortness of breath for the last 3 days. Patient appears nontoxic. Patient endorses 8 pound weight gain. On exam mild nonpitting edema in the lower extremities. Decreased lung sounds in the bases. Vital signs are normal except for some mild tachypnea with a respiratory rate of 22. Differential diagnosis includes exacerbation of CHF, pneumonia, anxiety. Chest x-ray was improved from last exam done in July. CBC, CMP and BNP were stable. Patient might be having a mild exacerbation of CHF we will go ahead and give 80 mg IM of furosemide. Patient will continue with his extra dose daily for the next 3 to 5 days or as weight regulates. Recommend follow-up or return to the ER for worsening symptoms. Family reported understanding. Lab Data 09/17/23 12:54 09/17/23 12:54 Labs/Radiology: Laboratory Results WBC 10.47 10^3/uL (3.29-11.43) 09/17/23 12:54 RBC 4.55 10^6/uL (3.85-5.65) 09/17/23 12:54 Hgb 12.90 g/dL (11.27-16.99) 09/17/23 12:54 Hct 40.4 % (37-53) 09/17/23 12:54 MCV 88.8 fl (82-101) 09/17/23 12:54 MCH 28.4 pg (27-33) 09/17/23 12:54 MCHC 31.9 g/dL (30-55) 09/17/23 12:54 RDW 16.3 % (12.1-15.1) H 09/17/23 12:54 Plt Count 251 10^3/cmm (157-399) 09/17/23 12:54 MPV 10.2 fL (7.4-10.4) 09/17/23 12:54 Neut % (Auto) 80.2 % 09/17/23 12:54 Lymph % (Auto) 8.2 % 09/17/23 12:54 [place] % (Auto) 6.9 % 09/17/23 12:54 Eos % (Auto) 3.4 % 09/17/23 12:54 Baso % (Auto) 0.8 % 09/17/23 12:54 Neut # (Auto) 8.40 10^3/uL (1.8-7.7) H 09/17/23 12:54 Lymph # (Auto) 0.9 10^3/uL (0.8-4.8) 09/17/23 12:54 [place] # (Auto) 0.7 10^3/uL (0.2-0.9) 09/17/23 12:54 Eos # (Auto) 0.4 10^3/uL (0.0-0.8) 09/17/23 12:54 Baso # (Auto) 0.1 10^3/uL (0.0-0.1) 09/17/23 12:54 Nucleated RBC % (auto) 0 % 09/17/23 12:54 Nucleated RBCs # 0.0 /100WBC 09/17/23 12:54 Sodium 137 mmol/L (136-145) 09/17/23 12:54 Potassium 5.0 mmol/L (3.5-5.1) 09/17/23 12:54 Chloride 100 mmol/L (98-107) 09/17/23 12:54 Carbon Dioxide 26 mmol/L (22-29) 09/17/23 12:54 Anion Gap 16.0 (5-19) 09/17/23 12:54 BUN 36 mg/dL (8-23) H 09/17/23 12:54 Creatinine 1.8 mg/dL (0.7-1.2) H 09/17/23 12:54 GFR Calculation Not Reportable 09/17/23 12:54 Glucose 110 mg/dL (65-115) 09/17/23 12:54 Calculated Osmolality 293 mOsm/kg (285-295) 09/17/23 12:54 Calcium 9.7 mg/dL (8.5-10.5) 09/17/23 12:54 Total Bilirubin 0.6 mg/dL (0.15-1.2) 09/17/23 12:54 AST 15 U/L (0-40) 09/17/23 12:54 ALT 12 U/L (0-41) 09/17/23 12:54 Alkaline Phosphatase 84 U/L (40-130) 09/17/23 12:54 NT-Pro-B Natriuret Pep 3776 pg/mL (0-125) H 09/17/23 12:54 Total Protein 7.3 g/dL (6.6-8.7) 09/17/23 12:54 Albumin 4.1 g/dL (3.5-5.2) 09/17/23 12:54 Globulin 3.2 g/dL (1.3-4.6) 09/17/23 12:54 XR interpretation done by ED provider, pending radiology final review Discharge Plan Discharge Patient Disposition: Home Clinical Impression: CHF (congestive heart failure) Qualifiers: Heart failure type: unspecified Heart failure chronicity: acute on chronic Q ualified Code(s): I50.9 - Heart failure, unspecified Condition: Stable Prescriptions: No Action cetirizine 10 mg capsule 10 mg PO BEDTIME fluticasone propionate [Allergy Relief (fluticasone)] 50 mcg/actuation spray,suspension 1 spray INTRANASAL BID Rx Instructions: administer into each nostril hydralazine 25 mg tablet 25 mg PO TID Qty: 90 3RF albuterol sulfate [ProAir HFA] 90 mcg/actuation HFA aerosol inhaler 2 puff inhalation Q6H PRN (Reason: Shortness Of Breath Or Wheezing) clopidogrel 75 mg tablet 75 mg PO BEDTIME lovastatin 40 mg tablet 20 mg PO BEDTIME methocarbamol 750 mg tablet 750 mg PO Q12H PRN (Reason: Muscle Pain) Coricidin HBP Chest Ayaan-Cough 10-200 mg capsule 1 tab-cap PO Q4H PRN (Reason: Cold Symptoms) ascorbate calcium (vitamin C) 500 mg tablet 500 mg PO QAM magnesium oxide 400 mg magnesium capsule 400 mg PO QAM (DME) 2 Pairs of Diabetic Shoes With 2 Custom Molded Inserts See Rx Instructions .Route .MEDSUPPLY Qty: 1 0RF Rx Instructions: Directed by [facility] P & O furosemide 40 mg tablet 40 mg PO BID aspirin 81 mg Tablet,Delayed Release (Dr/Ec) 81 mg PO QAM Wixela Inhub 250-50 mcg/dose Blister With Device 1 inh INHALATION BID Lantus U-100 Insulin 100 unit/mL Solution 38 unit SUBCUT BID albuterol sulfate 2.5 mg /3 mL (0.083 %) Solution For Nebulization 2.5 mg inhalation BEDTIME Vitamin B-12 1,000 mcg Tablet 1,000 mcg PO QAM Nitrostat 0.4 mg Tablet, Sublingual 0.4 mg SUBLINGUAL Q5M PRN (Reason: Chest Pain) Rx Instructions: do not exceed 3 doses per episode Lactaid 3,000 unit Tablet 3,000 unit PO QID PRN (Reason: unknown) Rx Instructions: administer with meals and/or snacks metformin 500 mg Tablet Extended Release 24 Hr 250 mg PO BID Vitamin D3 10 mcg (400 unit) Tablet 400 unit PO QAM vitamin E 268 mg (400 unit) Capsule 1 cap PO QAM diclofenac sodium 1 % Gel 2 g TOPICAL QID PRN (Reason: Pain) Rx Instructions: apply to single elbow, wrist or hand; for hand includes palm/fingers/back of hand ammonium lactate 12 % lotion 1 applic topical DAILY isosorbide mononitrate 30 mg tablet extended release 24 hr 30 mg PO QAM valsartan 160 mg tablet See Rx Instructions .ROUTE .COMPLEX Rx Instructions: 80mg (1/2 tab) po in the am and 160mg (1 tab) po at bedtime Mucinex 600 mg tablet extended release 12hr 1,200 mg PO Q12H Novolog FlexPen U-100 Insulin 100 unit/mL (3 mL) insulin pen See Rx Instructions .ROUTE .COMPLEX Qty: 15 0RF Rx Instructions: Inject, subcu, 3 times daily, after meals, based on sliding scale provided Discharge Orders: Discharge ED (Routine); Ordered 09/17/23 Ordered By: Stephon Mitchell Referrals: Bill Prescott, DO [Primary Care Provider] - Discharge Diet: Usual diet Discharge Activity: Increase activity as tolerated Patient Instructions: Heart Failure (ED) Activity Restrictions/Additional Instructions: Continue with plan to increase furosemide to 40 mg twice a day for the next 3 to 5 days or until weight returns to normal. Healthy diet and exercise. Follow-up with primary care as needed. Return to ED for worsening symptoms such as increasing shortness of breath, severe chest pain, or fever greater than 100.4. Coding Level of Care Code ED Forensic Audit Expert for Georges Sanderson
[2023-09-17 14:46] VITALS: BP 136/76; PULSE 100; RESP 22; O2SAT 91
[2023-09-17] MEDS: FUROsemide 10 mg/mL SDV 10mL 80 MG XX (14:46)
== END 2023-09-17 14:51 | disposition home or self-care (01) ==
PROVIDERS: Emergency Medicine; Emergency Provider Nurse Practitioner Family; PCP Emergency Medicine Emergency Medical Services
DX: I13.0 Hypertensive heart and chronic kidney disease with heart failure and stage 1 through stage 4 chronic kidney disease, or unspecified chronic kidney disease (principal); E11.22 Type 2 diabetes mellitus with diabetic chronic kidney disease; N18.9 Chronic kidney disease, unspecified; I50.9 Heart failure, unspecified; Z79.02 Long term (current) use of antithrombotics/antiplatelets; Z79.82 Long term (current) use of aspirin; Z79.4 Long term (current) use of insulin; Z79.84 Long term (current) use of oral hypoglycemic drugs; Z87.891 Personal history of nicotine dependence; J44.9 Chronic obstructive pulmonary disease, unspecified; E78.5 Hyperlipidemia, unspecified; I25.2 Old myocardial infarction; Z95.1 Presence of aortocoronary bypass graft
CPT/HCPCS: 36415; 71045; 80053; 83880; 85025; 93005; 96374; 99285; J1940

== ENCOUNTER → 2023-09-20 10:52 | Outpatient (BNVA) | payer OTHER, MEDICARE, SELFPAY | PROVIDERS: PCP Emergency Medicine Emergency Medical Services; Visit Provider Internal Medicine Pulmonary Disease | DX: J44.9 Chronic obstructive pulmonary disease, unspecified (principal); T78.40XA Allergy, unspecified, initial encounter; D72.19 Other eosinophilia; J84.112 Idiopathic pulmonary fibrosis; Z95.1 Presence of aortocoronary bypass graft; X58.XXXA Exposure to other specified factors, initial encounter | CPT/HCPCS: 99214 ==

== ENCOUNTER → 2023-09-28 13:45 | Outpatient (BNVA) | payer OTHER, SELFPAY | PROVIDERS: PCP Emergency Medicine Emergency Medical Services; Visit Provider Internal Medicine Cardiovascular Disease | DX: I25.10 Atherosclerotic heart disease of native coronary artery without angina pectoris (principal); E78.2 Mixed hyperlipidemia; I77.9 Disorder of arteries and arterioles, unspecified; I25.5 Ischemic cardiomyopathy; I13.0 Hypertensive heart and chronic kidney disease with heart failure and stage 1 through stage 4 chronic kidney disease, or unspecified chronic kidney disease; E11.22 Type 2 diabetes mellitus with diabetic chronic kidney disease; N18.9 Chronic kidney disease, unspecified; I50.33 Acute on chronic diastolic (congestive) heart failure; Z87.891 Personal history of nicotine dependence; Z79.4 Long term (current) use of insulin | CPT/HCPCS: 99214 ==

== ENCOUNTER 2023-10-02 09:56 | Outpatient (CLI) | payer OTHER, SELFPAY ==
[2023-10-02 10:51] LABS: Basophils # 0.1 10^3/uL (0.0-0.1); Eosinophils # 0.7 10^3/uL (0.0-0.8); Eosinophils % 6.2 %; Hematocrit 43.3 % (37-53); Mean Corpuscular HGB Conc 30.5 g/dL (30-55); Mean Corpuscular Hemoglobin 28.5 pg (27-33); Mean Corpuscular Volume 93.5 fl (82-101); Mean Platelet Volume 10.4 fL (7.4-10.4); Monocytes # 0.9 10^3/uL (0.2-0.9); Monocytes % 8.4 %; Neutrophils # 8.34 10^3/uL (1.8-7.7); Nucleated Red Blood Cells % 0 %; Platelet Count 238 10^3/cmm (157-399); Red Blood Count 4.63 10^6/uL (3.85-5.65); Red Cell Distribution Width 17.2 % (12.1-15.1); White Blood Count 11.13 10^3/uL (3.29-11.43)
[2023-10-02 11:12] LABS: Alanine Aminotransferase 10 U/L (0-41); Albumin Level 4.1 g/dL (3.5-5.2); Alkaline Phosphatase 68 U/L (40-130); Anion Gap 16.3 (5-19); Aspartate Amino Transferase 17 U/L (0-40); Blood Urea Nitrogen 38 mg/dL (8-23); C Reactive Protein 5.5 mg/L (0.0-4.9); Calcium 9.8 mg/dL (8.5-10.5); Carbon Dioxide 27 mmol/L (22-29); Chloride 102 mmol/L (98-107); Globulin 3.4 g/dL (1.3-4.6); Glucose 118 mg/dL (65-115); Osmolality Calculated 300 mOsm/kg (285-295); Potassium 5.3 mmol/L (3.5-5.1); Sodium 140 mmol/L (136-145); Total Bilirubin 0.4 mg/dL (0.15-1.2); Total Protein 7.5 g/dL (6.6-8.7)
[2023-10-02 11:18] LABS: Erythrocyte Sedimentation Rate 16 mm/hr (0-10)
== END 2023-10-02 09:57 | disposition home or self-care (01) ==
LOC: LAB 09:57
PROVIDERS: PCP Emergency Medicine Emergency Medical Services; Visit Provider Internal Medicine
DX: M06.00 Rheumatoid arthritis without rheumatoid factor, unspecified site (principal); N18.9 Chronic kidney disease, unspecified; R70.0 Elevated erythrocyte sedimentation rate
CPT/HCPCS: 36415; 80053; 85025; 85651; 86140

== ENCOUNTER → 2023-10-03 10:50 | Outpatient (BNVA) | payer OTHER, SELFPAY | PROVIDERS: PCP Emergency Medicine Emergency Medical Services; Visit Provider Podiatrist Foot & Ankle Surgery | DX: L60.3 Nail dystrophy (principal); E11.42 Type 2 diabetes mellitus with diabetic polyneuropathy; L84 Corns and callosities; M20.41 Other hammer toe(s) (acquired), right foot; Z79.4 Long term (current) use of insulin; Z79.84 Long term (current) use of oral hypoglycemic drugs | CPT/HCPCS: 11056; 11721 ==

== ENCOUNTER 2023-12-08 10:14 | Emergency (ER) | payer OTHER, SELFPAY ==
[2023-12-08 10:16] VITALS: BP 163/74; PULSE 110; RESP 22; TEMP 36.4; O2SAT 92
--- NOTE | 2023-12-08 10:30 | ED_ITS ---
HPI - SOB/Dyspnea 2 General: Chief Complaint: Shortness of Breath/Dyspnea Stated Complaint: SOB Time Seen by Provider: 12/08/23 10:25 Source: patient Mode of arrival: ambulatory History of Present Illness: HPI Narrative: 73-year-old male presents emergency room complaining of shortness of breath moderately productive cough for the last several days he is concerned he has a lung infection but has not seen anyone or been started on anything for it. He chronically is on oxygen at home. He Cablivi because he has noticed 5 pound weight gain overnight. He stopped taking his Lasix about 3 days ago. He also reports that in concurrence with the onset of symptoms of productive cough congestion and shortness of breath he has had chest discomfort that is relieved by sublingual nitroglycerin. MD elicited complaint: shortness of breath Pertinent past history: COPD and congestive heart failure Associated symptoms: Reports chest congestion, chest pain and cough; Deny abdominal pain, diaphoresis, dizziness, extremity pain, fever(s), hemoptysis, lightheadedness, myalgias, nausea, orthopnea, palpitations, paresthesias, polydipsia, polyuria, rash, sense of impending doom, syncope or vomiting Treatment prior to arrival: oxygen Related Data: Home oxygen amount: 3 liters Review of Systems 2 Const: Denies: fever(s), chills or diaphoresis Card: Reports: chest pain; Denies: palpitations, lightheadedness, syncope or orthopnea Resp: Reports: chest congestion; Denies: dyspnea or hemoptysis GI: Denies: abdominal pain, nausea or vomiting : Denies: dysuria, urinary frequency or urinary urgency Musc: Denies: neck pain, back pain or extremity pain Skin/Breast: Denies: rash Neuro: Denies: dizziness Endo: Denies: polyuria or polydipsia PFSH ED 2 PFSH: Medical History Sacroiliac dysfunction CKD (chronic kidney disease) Arthralgia Anemia Umbilical hernia, incarcerated Acute kidney injury Normochromic normocytic anemia Atherosclerosis of coronary artery of [place] heart without angina pectoris Acute on chronic diastolic (congestive) heart failure Sepsis Pleural effusion Community acquired pneumonia NSTEMI (non-ST elevated myocardial infarction) CHF exacerbation Restrictive lung disease Pneumonia Pancreatic cyst Pancreatitis Diabetes Hyperlipidemia Hypertension COPD (chronic obstructive pulmonary disease) Surgical History H/O esophagogastroduodenoscopy Hx of CABG History of coronary angioplasty with insertion of stent History of colonoscopy with polypectomy Family History Brother CAD (coronary artery disease) Diabetes Lung disease Sister CAD (coronary artery disease) Diabetes Cancer Lung disease Father CAD (coronary artery disease) Diabetes Lung disease Mother CAD (coronary artery disease) Diabetes Stroke Brother CAD (coronary artery disease) Diabetes Lung disease Brother CAD (coronary artery disease) Diabetes Sister CAD (coronary artery disease) Diabetes Lung disease Sister CAD (coronary artery disease) Diabetes Sister CAD (coronary artery disease) Diabetes Daughter Chronic kidney disease (CKD) Diabetes Denies family history of Clotting disorder Dementia Suicide Anesthesia complication Bleeding disorder Social History Smoking and tobacco/nicotine status: former use of tobacco/nicotine Quit status (tobacco/nicotine): has quit using Year quit tobacco: 1984 [id number] Second hand smoke exposure: No Alcohol intake: former Substance/Drug Use: never Adopted: No Caregiver/support person: Yes Lives independently: Yes Household members: spouse Housing: House Marital status: service: Yes Current occupational status: retired Pets and animals: No Leisure activites: exercise Sexually active: No Do you think of yourself as: Straight/Heterosexual Current gender identity: Male Mayra/Denominational: [employer] Special marya needs: No Agree to transfusion: No Physical Exam 2 Const: GENERAL APPEARANCE: cooperative and comfortable O RIENTATION/CONSCIOUSNESS: Yes awake, Yes oriented to person, Yes oriented to place and Yes oriented to time HENMT: COMMON NORMALS: normocephalic, atraumatic and hearing grossly normal bilaterally HEAD & SCALP: normocephalic and atraumatic Resp: AUSCULTATION: rhonchi and wheezes Cardio: COMMON NORMALS: regular rhythm and No murmurs present (Cardio) R ATE: tachycardic RHYTHM: regular rhythm GI: COMMON NORMALS: Soft to palpation and No hepatosplenomegaly present A USCULTATION: Yes normoactive bowel sounds PALPATION: Yes Soft to palpation, No Tenderness to palpation present (GI), No Guarding due to palpation present (GI) and Yes No hepatosplenomegaly present Extremity: COMMON NORMALS: normal to inspection, capillary refill normal and no calf tenderness GENERAL: Yes edema Neuro: SENSORIUM/ORIENTATION: Yes oriented to person, Yes oriented to place and Yes oriented to time Skin: COMMON NORMALS: no rashes or lesions noted GENERAL SKIN EXAM: no rashes or lesions noted Course 2 Vital Signs: Vital signs: Vital Signs Temperature 97.6 F 12/08/23 10:16 Pulse Rate 113 H 12/08/23 14:00 Respiratory Rate 22 H 12/08/23 10:16 Blood Pressure 145/116 12/08/23 14:00 Pulse Oximetry 93 12/08/23 14:00 Oxygen Delivery Me thod Nasal Cannula 12/08/23 10:16 Oxygen Flow Rate 3 12/08/23 10:16 MDM - SOB/Dyspnea Medical Decision Making Mild exacerbation of heart failure likely due to patient having stopped his Lasix recommend he resume his Lasix next 3 to 5 days recheck with his primary care doctor next week. He is not requiring more than his baseline oxygen at this time no significant decompensation on his chest x-ray return if he has further problems. Labs and imaging reviewed with the patient is no acute ST changes on his EKG reviewed as found in the chart. Medical Records I reviewed the patient's medical records. Lab Data I reviewed the patient's lab results. 12/08/23 10:38 12/08/23 10:38 Labs/Radiology: Radiology Impressions Chest X-Ray 12/08/23 10:41 IMPRESSION: 1. No acute findings. 2. Stable cardiomegaly 3. Stable pleural scarring Laboratory Results WBC 9.39 10^3/uL (3.29-11.43) 12/08/23 10:38 RBC 4.46 10^6/uL (3.85-5.65) 12/08/23 10:38 Hgb 12.80 g/dL (11.27-16.99) 12/08/23 10:38 Hct 40.3 % (37-53) 12/08/23 10:38 MCV 90.4 fl (82-101) 12/08/23 10:38 MCH 28.7 pg (27-33) 12/08/23 10:38 MCHC 31.8 g/dL (30-55) 12/08/23 10:38 RDW 17.9 % (12.1-15.1) H 12/08/23 10:38 Plt Count 233 10^3/cmm (157-399) 12/08/23 10:38 MPV 9.9 fL (7.4-10.4) 12/08/23 10:38 Neut % (Auto) 82.5 % 12/08/23 10:38 Lymph % (Auto) 6.4 % 12/08/23 10:38 [place] % (Auto) 6.7 % 12/08/23 10:38 Eos % (Auto) 3.1 % 12/08/23 10:38 Baso % (Auto) 0.9 % 12/08/23 10:38 Neut # (Auto) 7.75 10^3/uL (1.8-7.7) H 12/08/23 10:38 Lymph # (Auto) 0.6 10^3/uL (0.8-4.8) L 12/08/23 10:38 [place] # (Auto) 0.6 10^3/uL (0.2-0.9) 12/08/23 10:38 Eos # (Auto) 0.3 10^3/uL (0.0-0.8) 12/08/23 10:38 Baso # (Auto) 0.1 10^3/uL (0.0-0.1) 12/08/23 10:38 Nucleated RBC % (auto) 0 % 12/08/23 10:38 Nucleated RBCs # 0.0 /100WBC 12/08/23 10:38 Sodium 138 mmol/L (136-145) 12/08/23 10:38 Sodium Cancelled 12/08/23 10:38 Potassium 4.4 mmol/L (3.5-5.1) 12/08/23 10:38 Potassium Cancelled 12/08/23 10:38 Chloride 103 mmol/L (98-107) 12/08/23 10:38 Chloride Cancelled 12/08/23 10:38 Carbon Dioxide 21 mmol/L (22-29) L 12/08/23 10:38 Carbon Dioxide Cancelled 12/08/23 10:38 Anion Gap 18.4 (5-19) 12/08/23 10:38 Anion Gap Cancelled 12/08/23 10:38 BUN 25 mg/dL (8-23) H 12/08/23 10:38 BUN Cancelled 12/08/23 10:38 Creatinine 1.4 mg/dL (0.7-1.2) H 12/08/23 10:38 Creatinine Cancelled 12/08/23 10:38 GFR Calculation Cancelled 12/08/23 10:38 GFR Calculation Not Reportable 12/08/23 10:38 Glucose 170 mg/dL (65-115) H 12/08/23 10:38 Glucose Cancelled 12/08/23 10:38 Calculated Osmolality 294 mOsm/kg (285-295) 12/08/23 10:38 Calculated Osmolality Cancelled 12/08/23 10:38 Calcium 9.1 mg/dL (8.5-10.5) 12/08/23 10:38 Calcium Cancelled 12/08/23 10:38 Total Bilirubin 0.8 mg/dL (0.15-1.2) 12/08/23 10:38 Total Bilirubin Cancelled 12/08/23 10:38 AST 20 U/L (0-40) 12/08/23 10:38 AST Cancelled 12/08/23 10:38 ALT 14 U/L (0-41) 12/08/23 10:38 ALT Cancelled 12/08/23 10:38 Alkaline Phosphatase 93 U/L (40-130) 12/08/23 10:38 Alkaline Phosphatase Cancelled 12/08/23 10:38 Troponin T Baseline 46 ng/L (0-15) H 12/08/23 10:38 Troponin T 120 Minute 42.73 ng/L (0-15) H 12/08/23 12:50 Delta Troponin T -3.27 ABS# (0-10) L 12/08/23 12:50 NT-Pro-B Natriuret Pep 4200 pg/mL (0-125) H 12/08/23 10:38 Total Protein 6.7 g/dL (6.6-8.7) 12/08/23 10:38 Total Protein Cancelled 12/08/23 10:38 Albumin 4.1 g/dL (3.5-5.2) 12/08/23 10:38 Albumin Cancelled 12/08/23 10:38 Globulin 2.6 g/dL (1.3-4.6) 12/08/23 10:38 Globulin Cancelled 12/08/23 10:38 Procalcitonin 0.14 ng/mL (0-0.5) 12/08/23 10:38 Procalcitonin Cancelled 12/08/23 10:38 All radiology interpretation(s) finalized by discharge Discharge Plan Discharge Patient Disposition: Home Clinical Impression: Congestive heart failure, Ischemic cardiomyopathy, Diabetes Hypertension Qualifiers: Hypertension type: essential hypertension Qualified Code(s): I10 - Essential (primary) hypertension Condition: Stable Prescriptions: No Action fluticasone propionate [Allergy Relief (fluticasone)] 50 mcg/actuation spray,suspension 1 spray INTRANASAL BID Rx Instructions: administer into each nostril hydralazine 25 mg tablet 25 mg PO TID Qty: 90 3RF albuterol sulfate [ProAir HFA] 90 mcg/actuation HFA aerosol inhaler 2 puff inhalation Q6H PRN (Reason: Shortness Of Breath Or Wheezing) clopidogrel 75 mg tablet 75 mg PO BEDTIME lovastatin 40 mg tablet 20 mg PO BEDTIME methocarbamol 750 mg tablet 750 mg PO Q12H PRN (Reason: Muscle Pain) Coricidin HBP Chest Ayaan-Cough 10-200 mg capsule 1 tab-cap PO Q4H PRN (Reason: Cold Symptoms) ascorbate calcium (vitamin C) 500 mg tablet 500 mg PO QAM magnesium oxide 400 mg magnesium capsule 400 mg PO QAM potassium chloride 10 mEq tablet extended release 10 meq PO DAILY PRN (Reason: Edema) (DME) 2 Pairs of Diabetic Shoes With 2 Custom Molded Inserts See Rx Instructions .Route .MEDSUPPLY Qty: 1 0RF Rx Instructions: Directed by [facility] P & O furosemide 40 mg tablet 40 mg PO BID PRN (Reason: Edema) aspirin 81 mg Tablet,Delayed Release (Dr/Ec) 81 mg PO QAM metformin 1,000 mg Tablet 500 mg PO BID Novolog FlexPen U-100 Insulin 100 unit/mL (3 mL) insulin pen See Rx Instructions .ROUTE .COMPLEX PRN (Reason: blood sugar) Rx Instructions: Inject, subcu, 3 times daily as needed, after meals, based on sliding scale provided ondansetron 4 mg tablet,disintegrating 4 mg PO Q8H PRN (Reason: nausea or vomiting) oxycodone 5 mg tablet 5 mg PO Q6H PRN (Reason: Pain) fluticasone propion-salmeterol [Wixela Inhub] 250-50 mcg/dose Blister With Device 1 inh INHALATION BID insulin glargine [Lantus U-100 Insulin] 100 unit/mL Solution 38 unit SUBCUT BID cyanocobalamin (vitamin B-12) [Vitamin B-12] 1,000 mcg Tablet 1,000 mcg PO QAM nitroglycerin [Nitrostat] 0.4 mg Tablet, Sublingual 0.4 mg SUBLINGUAL Q5M PRN (Reason: Chest Pain) Rx Instructions: do not exceed 3 doses per episode lactase [Lactaid] 3,000 unit Tablet 3,000 unit PO QID PRN (Reason: unknown) Rx Instructions: administer with meals and/or snacks cholecalciferol (vitamin D3) [Vitamin D3] 10 mcg (400 unit) Tablet 400 unit PO QAM vitamin E 268 mg (400 unit) Capsule 1 cap PO QAM diclofenac sodium 1 % Gel 2 g TOPICAL QID PRN (Reason: Pain) Rx Instructions: apply to single elbow, wrist or hand; for hand includes palm/fingers/back of hand ammonium lactate 12 % lotion 1 applic topical DAILY PRN (Reason: unknown) isosorbide mononitrate 30 mg tablet extended release 24 hr 30 mg PO QAM valsartan 160 mg tablet See Rx Instructions .ROUTE .COMPLEX Rx Instructions: Take 80mg (1/2 tab) by mouth in the am and 160mg (1 tab) at bedtime guaifenesin [Mucinex] 600 mg tablet extended release 12hr 1,200 mg PO Q12H PRN (Reason: Congestion) Discharge Orders: Discharge ED (Routine); Ordered 12/08/23 Ordered By: Bull Yu Referrals: Bill Prescott DO [Primary Care Provider] - Discharge Diet: Cardiac and Low Salt Discharge Activity: Increase activity as tolerated Patient Instructions: Heart Failure (ED), Opioid Safety, Pain Management Activity Restrictions/Additional Instructions: Thank you for choosing [facility] for your healthcare needs today. Please realize this is an emergency room and that we are providing you with a medical screening exam and this may not be complete and all inclusive of all the testing and or work up that you may need to determine your ailment or severity of your illness. It is very important that you follow up as instructed or that you return to the Emergency Department should you have concerns or if your condition changes or worsens in any way. Recommend you resume your Lasix for the next 3 to 5 days checkup with your primary care doctor next week. Coding Level of Care Code ED Director Of Promotions for Georges Sanderson
--- NOTE | 2023-12-08 10:41 | XRR_ITS ---
PROCEDURE INFORMATION: Exam: XR Chest Exam date and time: 12/08/2023 10:48 AM Age: 73 years old Clinical indication: Cough and dyspnea and shortness of breath; Smoker's cough; Prior surgery; Surgery date: 6+ months; Surgery type: Open heart; Additional info: Dyspnea/cough TECHNIQUE: Imaging protocol: Radiologic exam of the chest. Views: 1 view. COMPARISON: CR XR chest 1V portable [id number] 09/17/2023 2:02 PM FINDINGS: Lungs: Chronic pleural thickening involves the left base. Pleural spaces: See Lungs finding. Heart/Mediastinum: Moderate cardiomegaly is noted. Bones/joints: Sternal sutures are noted. XR/XR chest 1V portable [id number] IMPRESSION: 1. No acute findings. 2. Stable cardiomegaly 3. Stable pleural scarring
--- NOTE | 2023-12-08 10:41 | ECG_ITS ---
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 Measurements Intervals [place] Rate: 112 P: 80 PA: 252 QRS: 135 QRSD: 148 T: 68 QT: 424 QTc: 580 Interpretive Statements SINUS TACHYCARDIA WITH FIRST DEGREE AV BLOCK POSSIBLE RIGHT ATRIAL ENLARGEMENT [0.25mV P-WAVE] RIGHT AXIS DEVIATION [QRS AXIS > 100] RIGHT BUNDLE BRANCH BLOCK [120+ ms QRS DURATION, UPRIGHT V1, 40+ ms S IN I/aVL/V4/V5/V6] SEPTAL MYOCARDIAL INFARCTION , OF INDETERMINATE AGE [40+ ms Q WAVE IN V1/V2] Compared to ECG 09/17/2023 12:47:34 Right-axis deviation now present Sinus rhythm no longer present Indeterminate axis no longer present Myocardial infarct finding still present Electronically Signed On 12-08-2023 11:59:45 CDT by Robert Faribanks M.D. [email or web address].[id number] ramirez
[2023-12-08 10:49] LABS: Basophils # 0.1 10^3/uL (0.0-0.1); Basophils % 0.9 %; Eosinophils # 0.3 10^3/uL (0.0-0.8); Eosinophils % 3.1 %; Hematocrit 40.3 % (37-53); Lymphocytes # 0.6 10^3/uL (0.8-4.8); Lymphocytes % 6.4 %; Mean Corpuscular HGB Conc 31.8 g/dL (30-55); Mean Corpuscular Hemoglobin 28.7 pg (27-33); Mean Corpuscular Volume 90.4 fl (82-101); Mean Platelet Volume 9.9 fL (7.4-10.4); Monocytes # 0.6 10^3/uL (0.2-0.9); Monocytes % 6.7 %; Neutrophils # 7.75 10^3/uL (1.8-7.7); Neutrophils % 82.5 %; Nucleated Red Blood Cells % 0 %; Platelet Count 233 10^3/cmm (157-399); Red Blood Count 4.46 10^6/uL (3.85-5.65); Red Cell Distribution Width 17.9 % (12.1-15.1); White Blood Count 9.39 10^3/uL (3.29-11.43)
--- NOTE | 2023-12-08 11:02 | PC.PHAR ---
PT IS [facility] BUT KNOWS HIS MEDICATIONS WELL.
[2023-12-08 11:13] LABS: NT Pro B Type Natriuretic Pept 4200 pg/mL (0-125); Procalcitonin 0.14 ng/mL (0-0.5)
[2023-12-08 11:14] LABS: Troponin(5th) Baseline 46 ng/L (0-15)
[2023-12-08 11:24] LABS: Alanine Aminotransferase 14 U/L (0-41); Albumin Level 4.1 g/dL (3.5-5.2); Alkaline Phosphatase 93 U/L (40-130); Anion Gap 18.4 (5-19); Aspartate Amino Transferase 20 U/L (0-40); Blood Urea Nitrogen 25 mg/dL (8-23); Calcium 9.1 mg/dL (8.5-10.5); Carbon Dioxide 21 mmol/L (22-29); Chloride 103 mmol/L (98-107); Globulin 2.6 g/dL (1.3-4.6); Glucose 170 mg/dL (65-115); Osmolality Calculated 294 mOsm/kg (285-295); Potassium 4.4 mmol/L (3.5-5.1); Sodium 138 mmol/L (136-145); Total Bilirubin 0.8 mg/dL (0.15-1.2); Total Protein 6.7 g/dL (6.6-8.7)
[2023-12-08 11:27] LABS: Creatinine Clr Calc Pharmacy 57.3187
--- NOTE | 2023-12-08 11:36 | PC.NURSE ---
EKG COMPLETED PRIOR TO TAKING REPORT ON PT.
--- NOTE | 2023-12-08 12:41 | ECG_ITS ---
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 Measurements Intervals [place] Rate: 98 P: 55 [place]: 229 QRS: 150 QRSD: 152 T: -16 QT: 378 QTc: 485 Interpretive Statements SINUS RHYTHM WITH FIRST DEGREE AV BLOCK RIGHT AXIS DEVIATION [QRS AXIS > 100] RIGHT BUNDLE BRANCH BLOCK [120+ ms QRS DURATION, UPRIGHT V1, 40+ ms S IN I/aVL/V4/V5/V6] SEPTAL MYOCARDIAL INFARCTION , PROBABLY OLD [40+ ms Q WAVE IN V1/V2] Compared to ECG 12/08/2023 10:23:24 Sinus tachycardia no longer present Myocardial infarct finding still present Electronically Signed On 12-08-2023 13:24:22 CDT by Robert Fairbanks M.D. [email or web address].[email or web address])/[id number]
[2023-12-08 13:39] LABS: Troponin 5 2HR 42.73 ng/L (0-15)
[2023-12-08 13:40] LABS: Troponin 5 2HR Delta -3.27 ABS# (0-10)
[2023-12-08 14:00] VITALS: BP 145/116; PULSE 113; O2SAT 93
== END 2023-12-08 14:20 | disposition home or self-care (01) ==
PROVIDERS: Emergency Provider Family Medicine; PCP Emergency Medicine Emergency Medical Services
DX: I13.0 Hypertensive heart and chronic kidney disease with heart failure and stage 1 through stage 4 chronic kidney disease, or unspecified chronic kidney disease (principal); E11.22 Type 2 diabetes mellitus with diabetic chronic kidney disease; I43 Cardiomyopathy in diseases classified elsewhere; N18.9 Chronic kidney disease, unspecified; I50.9 Heart failure, unspecified; Z79.02 Long term (current) use of antithrombotics/antiplatelets; Z79.82 Long term (current) use of aspirin; Z79.4 Long term (current) use of insulin; Z87.891 Personal history of nicotine dependence; I25.10 Atherosclerotic heart disease of native coronary artery without angina pectoris; I25.2 Old myocardial infarction; E78.5 Hyperlipidemia, unspecified; J44.9 Chronic obstructive pulmonary disease, unspecified; Z95.1 Presence of aortocoronary bypass graft; Z95.5 Presence of coronary angioplasty implant and graft
CPT/HCPCS: 36415; 71045; 80053; 83880; 84145; 84484; 85025; 93005; 99285

== ENCOUNTER → 2024-01-03 09:54 | Outpatient (BNVA) | payer OTHER, SELFPAY | PROVIDERS: PCP Emergency Medicine Emergency Medical Services; Visit Provider Podiatrist Foot & Ankle Surgery | DX: L60.3 Nail dystrophy (principal); E11.42 Type 2 diabetes mellitus with diabetic polyneuropathy; L84 Corns and callosities; M20.41 Other hammer toe(s) (acquired), right foot; Z79.4 Long term (current) use of insulin; Z79.84 Long term (current) use of oral hypoglycemic drugs | CPT/HCPCS: 11056; 11721 ==

== ENCOUNTER → 2024-01-22 10:28 | Outpatient (BNVA) | payer OTHER, SELFPAY | PROVIDERS: PCP Emergency Medicine Emergency Medical Services; Visit Provider Internal Medicine Pulmonary Disease | DX: J44.9 Chronic obstructive pulmonary disease, unspecified (principal); T78.40XA Allergy, unspecified, initial encounter; D72.19 Other eosinophilia; J84.112 Idiopathic pulmonary fibrosis; Z95.1 Presence of aortocoronary bypass graft; X58.XXXA Exposure to other specified factors, initial encounter; I25.10 Atherosclerotic heart disease of native coronary artery without angina pectoris; Z87.891 Personal history of nicotine dependence | CPT/HCPCS: 99214 ==

== ENCOUNTER → 2024-02-06 14:54 | Outpatient (BNVA) | payer OTHER, SELFPAY | PROVIDERS: PCP Emergency Medicine Emergency Medical Services; Visit Provider Internal Medicine Cardiovascular Disease | DX: R06.02 Shortness of breath (principal) | CPT/HCPCS: 36415; 80048; 83880; 99214 ==

== ENCOUNTER 2024-02-20 07:00 | Outpatient (CLI) | payer OTHER, SELFPAY ==
--- NOTE | 2024-02-20 07:12 | MR_ITS ---
WS: [id number] MRI ABDOMEN WITH AND WITHOUT CONTRAST. COMPARISON: CT 04/19/2023, 06/01/2023 and ultrasound 04/26/2023 Multiplanar, multisequence imaging is performed with and without contrast. MultiHance 20 mL. History: History of liver cancer. No history of prior surgery. Reidentified is a relatively well-circumscribed mass in the posterior inferior RIGHT lobe of the live r. Mass is slightly of decreased signal on the T1 sequences. Difficult to visualize and nearly isoint ense on the T2 sequences. Mass measures 2.9 x 3.1 cm and is very similar in size to prior imaging ofe dy from 06/01/2023. This was a poorly defined mass at that time measuring approximately 3.2 x 3.3 cm. S light decrease in size. On the postcontrast imaging there is peripheral enhancement with a few septat ions which also enhance. There is additional very subtle signal abnormality adjacent to the tumor luz marina cribed in the RIGHT lobe. Very subtle change in the adjacent architecture and there is enhancement on the postcontrast images. The enhancement does become more prominent on the portal venous phase and d oes not washout on the delayed imaging as typically seen for hepatocellular carcinoma. This additiona l area of signal abnormality measures 5.0 x 6.5 x 5.5 cm. No significant hepatic steatosis. Normal po rtal vein. No lymph nodes in the jovita hepatis. No additional abnormalities within the liver. Spleen is normal size. Bilateral small renal cysts. No solid mass. No adrenal mass. No lymph nodes. N o GI tract obstruction. MR/MR abdomen wo/w con* [id number] IMPRESSION: 1. Solid mass with peripheral and thin septation enhancement in the posterior inferior RIGHT lobe of the liver measures 2.9 x 3.1 cm. Very slight decrease in size. There is additional adjacent enhancement in the RIGHT lobe of the liver which is very subtle and does not washout is typically seen on the late imaging . This should be evaluated for possible progression of hepatocellular carcinoma . This is additional area measures approximately 5.0 x 6.5 x 5.5 cm and is cont iguous with the primary mass. 2. Normal portal vein with no tumor thrombus. 3. No adenopathy. 4. Bilateral renal cysts.
[2024-02-20] MEDS: gadobenate dimeglumine 20 mL vial IV (08:16)
== END 2024-02-20 07:01 | disposition home or self-care (01) ==
LOC: RAD 07:00
PROVIDERS: PCP Emergency Medicine Emergency Medical Services; Visit Provider Radiology Diagnostic Radiology
DX: C22.0 Liver cell carcinoma (principal); R93.2 Abnormal findings on diagnostic imaging of liver and biliary tract; Q61.02 Congenital multiple renal cysts
CPT/HCPCS: 74183; A9577

== ENCOUNTER → 2024-03-25 12:46 | Outpatient (BNVA) | payer OTHER, SELFPAY | PROVIDERS: PCP Emergency Medicine Emergency Medical Services; Visit Provider Podiatrist Foot & Ankle Surgery | DX: L60.3 Nail dystrophy (principal); E11.42 Type 2 diabetes mellitus with diabetic polyneuropathy; M20.41 Other hammer toe(s) (acquired), right foot; M20.42 Other hammer toe(s) (acquired), left foot; L84 Corns and callosities; Z79.4 Long term (current) use of insulin; Z79.84 Long term (current) use of oral hypoglycemic drugs | CPT/HCPCS: 11056; 11721 ==

== ENCOUNTER → 2024-04-03 10:00 | Outpatient (BNVA) | payer OTHER, SELFPAY | PROVIDERS: PCP Emergency Medicine Emergency Medical Services; Visit Provider Internal Medicine Cardiovascular Disease | DX: I25.10 Atherosclerotic heart disease of native coronary artery without angina pectoris (principal); E78.2 Mixed hyperlipidemia; I77.9 Disorder of arteries and arterioles, unspecified; I13.0 Hypertensive heart and chronic kidney disease with heart failure and stage 1 through stage 4 chronic kidney disease, or unspecified chronic kidney disease; E11.22 Type 2 diabetes mellitus with diabetic chronic kidney disease; N18.9 Chronic kidney disease, unspecified; I50.22 Chronic systolic (congestive) heart failure; Z87.891 Personal history of nicotine dependence; Z79.4 Long term (current) use of insulin | CPT/HCPCS: 99214 ==

== ENCOUNTER 2024-06-12 10:34 | Inpatient (IN) | payer OTHER, MEDICARE, SELFPAY ==
[2024-06-12] VITALS (31 sets, daily range): BP systolic 87–130; BP diastolic 56–80; PULSE 88–107; RESP 12–27; TEMP 36.3–36.8; O2SAT 95–100; BMI 30.9
--- NOTE | 2024-06-12 10:35 | XRR_ITS ---
PROCEDURE INFORMATION: Exam: XR Chest Exam date and time: 06/12/2024 10:56 AM Age: 74 years old Clinical indication: Shortness of breath; Prior surgery; Surgery date: 6+ months; Surgery type: Open heart; Additional info: SOB TECHNIQUE: Imaging protocol: Radiologic exam of the chest. Views: 1 view. COMPARISON: CR XR chest 1V portable [id number] 12/08/2023 10:48 AM FINDINGS: Lungs: No consolidation. Pleural spaces: Stable chronic left pleural thickening. Heart/Mediastinum: Stable cardiomediastinal silhouette. Bones/joints: Status post median sternotomy. XR/XR chest 1V portable [id number] IMPRESSION: No interval change.
--- NOTE | 2024-06-12 10:36 | ECG_ITS ---
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 Measurements Intervals [place] Rate: 92 P: -72 RI: 181 QRS: -52 QRSD: 135 T: -27 QT: 431 QTc: 535 Interpretive Statements ECTOPIC ATRIAL RHYTHM LEFT AXIS DEVIATION [QRS AXIS < -30] RIGHT BUNDLE BRANCH BLOCK [120+ ms QRS DURATION, UPRIGHT V1, 40+ ms S IN I/aVL/V4/V5/V6] ST DEVIATION AND MODERATE T-WAVE ABNORMALITY, CONSIDER ANTEROLATERAL ISCHEMIA [-0.1+ mV T-WAVE IN V3-V6] Compared to ECG 12/08/2023 12:02:31 Ectopic atrial rhythm now present Left-axis deviation now present.T-wave abnormality now present Possible ischemia now present.Sinus rhythm no longer present First degree AV block no longer present.Right-axis deviation no longer present Myocardial infarct finding no longer present Electronically Signed On 06-13-2024 0:19:55 CDT by Cholo Kelsey M.D. [email or web address].[employer]/[id number]
[2024-06-12 10:56] LABS: Basophils # 0.1 10^3/uL (0.0-0.1); Basophils % 0.9 %; Eosinophils # 0.4 10^3/uL (0.0-0.8); Eosinophils % 4.6 %; Hematocrit 32.1 % (37-53); Lymphocytes # 0.5 10^3/uL (0.8-4.8); Lymphocytes % 5.3 %; Mean Corpuscular HGB Conc 29.9 g/dL (30-55); Mean Corpuscular Hemoglobin 24.7 pg (27-33); Mean Corpuscular Volume 82.5 fl (82-101); Mean Platelet Volume 9.1 fL (7.4-10.4); Monocytes # 0.7 10^3/uL (0.2-0.9); Monocytes % 7.8 %; Neutrophils # 6.81 10^3/uL (1.8-7.7); Neutrophils % 80.9 %; Nucleated Red Blood Cells % 0 %; Platelet Count 229 10^3/cmm (157-399); Red Blood Count 3.89 10^6/uL (3.85-5.65); Red Cell Distribution Width 20.6 % (12.1-15.1); White Blood Count 8.43 10^3/uL (3.29-11.43)
--- NOTE | 2024-06-12 11:04 | W.ED.WEAKNES ---
HPI - Weakness General: Chief complaint: Weakness Stated complaint: water buildup (gained 5lbs one day) Time Seen by Provider: 06/12/24 10:55 History of Present Illness: 74-year-old male with a history of congestive heart failure, coronary artery disease status post CABG, chronic kidney disease, hypertension, COPD, and chronic hypoxemic respiratory failure on 3 L nasal cannula at all times who presents to the emergency room with worsening lower extremity swelling. He reports 5 pound weight gain overnight. He says he did not drink more than he usually does. He has not had worsening breathing problems he says. Blood pressure is little soft on presentation at 98/60. No chest pain. No altered mental status. No focal motor deficits. No cough. No abdominal pain. No nausea or vomiting. Review of Systems Narrative: Constitutional symptoms: Negative except as documented in HPI. Skin symptoms: Negative except as documented in HPI. Eye symptoms: Negative except as documented in HPI. ENMT symptoms: Negative except as documented in HPI. Respiratory symptoms: Negative except as documented in HPI. Cardiovascular symptoms: Negative except as documented in HPI. Gastrointestinal symptoms: Negative except as documented in HPI. Genitourinary symptoms: Negative except as documented in HPI. Musculoskeletal symptoms: Negative except as documented in HPI. Neurologic symptoms: Negative except as documented in HPI. Psychiatric symptoms: Negative except as documented in HPI. Endocrine symptoms: Negative except as documented in HPI. [facility] PFSH: Medical History Sacroiliac dysfunction CKD (chronic kidney disease) Arthralgia Anemia Umbilical hernia, incarcerated Acute kidney injury Normochromic normocytic anemia Atherosclerosis of coronary artery of cahto heart without angina pectoris Acute on chronic diastolic (congestive) heart failure Sepsis Pleural effusion Community acquired pneumonia NSTEMI (non-ST elevated myocardial infarction) CHF exacerbation Restrictive lung disease Pneumonia Pancreatic cyst Pancreatitis Diabetes Hyperlipidemia Hypertension COPD (chronic obstructive pulmonary disease) Surgical History H/O esophagogastroduodenoscopy Hx of CABG History of coronary angioplasty with insertion of stent History of colonoscopy with polypectomy Family History Brother CAD (coronary artery disease) Diabetes Lung disease Sister CAD (coronary artery disease) Diabetes Cancer Lung disease Father CAD (coronary artery disease) Diabetes Lung disease Mother CAD (coronary artery disease) Diabetes Stroke Brother CAD (coronary artery disease) Diabetes Lung disease Brother CAD (coronary artery disease) Diabetes Sister CAD (coronary artery disease) Diabetes Lung disease Sister CAD (coronary artery disease) Diabetes Sister CAD (coronary artery disease) Diabetes Daughter Chronic kidney disease (CKD) Diabetes Denies family history of Clotting disorder Dementia Suicide Anesthesia complication Bleeding disorder Social History Smoking and tobacco/nicotine status: former use of tobacco/nicotine Quit status (tobacco/nicotine): has quit using Year quit tobacco: 1983 [id number] Second hand smoke exposure: No Alcohol intake: former Substance/Drug Use: never Adopted: No Caregiver/support person: Yes Lives independently: Yes Household members: spouse Housing: House Marital status: service: Yes Current occupational status: retired Pets and animals: No Leisure activites: exercise Sexually active: No Do you think of yourself as: Straight/Heterosexual Current gender identity: Male Mayra/Mosque: Evangelical Special mayra needs: No Agree to transfusion: No Physical Exam Narrative: EXAM NARRATIVE: General: Alert, no acute distress. Skin: Warm, dry. Head: Normocephalic, atraumatic. Neck: Supple, trachea midline. Eye: Extraocular movements are intact. Ears, nose, mouth and throat: mucosa moist. Cardiovascular: Regular, Normal peripheral perfusion. 2+ pitting edema of the bilateral lower extremities. Respiratory: Lungs are clear to auscultation, respirations are non-labored, breath sounds are equal, Symmetrical chest wall expansion. Gastrointestinal: Soft, Nontender, Non distended Musculoskeletal: Normal ROM, no deformity. Neurological: Alert and oriented, No focal neurological deficit observed. Psychiatric: Cooperative, appropriate mood & affect. Course Vital Signs: Vital signs: Vital Signs Temperature 98.3 F 06/12/24 10:53 Pulse Rate 92 06/12/24 10:53 Respiratory Rate 18 06/12/24 10:53 Blood Pressure 98/60 06/12/24 10:53 Pulse Oximetry 97 06/12/24 10:53 Oxygen Delivery Me thod Nasal Cannula 06/12/24 10:53 Oxygen Flow Rate 3 06/12/24 10:53 MDM - Weakness Medical Decision Making Medical decision making: Differential diagnosis including but not limited to and based on the above HPI, review of systems and physical exam: for patient with edema: Congestive heart failure. Kidney failure. DVT / Pulmonary embolism. Protein malnutrition. Cirrhosis. Orders placed to evaluate differential diagnosis based on the above differential, HPI and physical exam Chest x-ray: Sternotomy wires in place. Stable left pleural effusion and stable cardiomegaly. No acute process. No infiltrate. No pneumothorax. This was reviewed and interpreted by myself the ER physician. Lab Review: Laboratory results were reviewed and interpreted by myself the emergency room physician. Hemoglobin lower than previous at 9.6. No leukocytosis. BUN and creatinine are significantly up at a setting of 2.5. His creatinine normally runs around 1.7. I reviewed the patient's medical record. Reexamination: Patient's blood pressure has been soft in the 90s systolic. He is fairly asymptomatic. His main complaint is just swelling in his legs. He has remained stable on his 3 L nasal cannula. No increased work of breathing. No altered mental status. No focal motor deficits. No chest pain. Consultation: I spoke with Dr. Samuels who is electronic drafter for the hospitalist service at this time. He agrees to admission to the ICU. Request a CT scan of the abdomen pelvis without contrast: This has been ordered. Assessment and plan: Acute exacerbation of congestive heart failure Acute on chronic renal insufficiency Cardiorenal syndrome Hypotension Chronic hypoxemic respiratory failure ?At this point I am deferring to hospitalist for any diuretics etc. Patient is stable on his home oxygen. -I discussed the patient with the hospitalist on-call who is admitting the patient. - Discussed findings and plan with patient. Answered any questions. - All laboratory values were reviewed and interpreted personally by myself, the ER physician - All imaging was reviewed and interpreted personally by myself, the ER physician. - Evaluation and treatment of this problem were appropriate in the emergency setting Lab Data 06/12/24 10:49 06/12/24 10:49 Radiology Impressions Chest X-Ray 06/12/24 10:35 IMPRESSION: No interval change. Laboratory Results WBC 8.43 10^3/uL (3.29-11.43) 06/12/24 10:49 RBC 3.89 10^6/uL (3.85-5.65) 06/12/24 10:49 Hgb 9.60 g/dL (11.27-16.99) L 06/12/24 10:49 Hct 32.1 % (37-53) L 06/12/24 10:49 MCV 82.5 fl (82-101) 06/12/24 10:49 MCH 24.7 pg (27-33) L 06/12/24 10:49 MCHC 29.9 g/dL (30-55) L 06/12/24 10:49 RDW 20.6 % (12.1-15.1) H 06/12/24 10:49 Plt Count 229 10^3/cmm (157-399) 06/12/24 10:49 MPV 9.1 fL (7.4-10.4) 06/12/24 10:49 Neut % (Auto) 80.9 % 06/12/24 10:49 Lymph % (Auto) 5.3 % 06/12/24 10:49 [place] % (Auto) 7.8 % 06/12/24 10:49 Eos % (Auto) 4.6 % 06/12/24 10:49 Baso % (Auto) 0.9 % 06/12/24 10:49 Neut # (Auto) 6.81 10^3/uL (1.8-7.7) 06/12/24 10:49 Lymph # (Auto) 0.5 10^3/uL (0.8-4.8) L 06/12/24 10:49 [place] # (Auto) 0.7 10^3/uL (0.2-0.9) 06/12/24 10:49 Eos # (Auto) 0.4 10^3/uL (0.0-0.8) 06/12/24 10:49 Baso # (Auto) 0.1 10^3/uL (0.0-0.1) 06/12/24 10:49 Nucleated RBC % (auto) 0 % 06/12/24 10:49 Nucleated RBCs # 0.0 /100WBC 06/12/24 10:49 Sodium 133 mmol/L (136-145) L 06/12/24 10:49 Potassium 4.2 mmol/L (3.5-5.1) 06/12/24 10:49 Chloride 95 mmol/L (98-107) L 06/12/24 10:49 Carbon Dioxide 23 mmol/L (22-29) 06/12/24 10:49 Anion Gap 19.2 (5-19) H 06/12/24 10:49 BUN 87 mg/dL (8-23) H* D 06/12/24 10:49 Creatinine 2.5 mg/dL (0.7-1.2) H 06/12/24 10:49 GFR Calculation Not Reportable 06/12/24 10:49 Glucose 123 mg/dL (65-115) H 06/12/24 10:49 Calculated Osmolality 304 mOsm/kg (285-295) H 06/12/24 10:49 Calcium 8.5 mg/dL (8.5-10.5) 06/12/24 10:49 Total Bilirubin 0.6 mg/dL (0.15-1.2) 06/12/24 10:49 AST 30 U/L (0-40) 06/12/24 10:49 ALT 19 U/L (0-41) 06/12/24 10:49 Alkaline Phosphatase 153 U/L (40-130) H 06/12/24 10:49 NT-Pro-B Natriuret Pep 47505 pg/mL (0-125) H 06/12/24 10:49 Total Protein 7.3 g/dL (6.6-8.7) 06/12/24 10:49 Albumin 3.8 g/dL (3.5-5.2) 06/12/24 10:49 Globulin 3.5 g/dL (1.3-4.6) 06/12/24 10:49 All radiology interpretation(s) finalized by discharge Discharge Plan Discharge Patient Disposition: Admitted As Inpatient Clinical Impression: Acute exacerbation of congestive heart failure, Acute on chronic renal failure, Cardiorenal syndrome, Edema, Hypotension Condition: Stable Coding Level of Care Code ED 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 Fwd Related Data Home Medications Medication Instructions Recorded Confirmed aspirin 81 mg tablet,delayed 81 mg PO QAM 01/02/21 04/07/24 release albuterol sulfate 90 mcg/actuation 2 puff inhalation Q6H PRN 01/25/21 04/07/24 aerosol inhaler (ProAir HFA) Shortness Of Breath Or Wheezing clopidogrel 75 mg tablet 75 mg PO BEDTIME 01/25/21 04/07/24 fluticasone propionate 50 1 spray intranasal BID 04/20/21 04/07/24 mcg/actuation nasal spray,suspension (Allergy Relief (fluticasone)) lovastatin 40 mg tablet 20 mg PO BEDTIME 04/20/21 04/07/24 methocarbamol 750 mg tablet 750 mg PO Q12H PRN Muscle Pain 04/20/21 04/07/24 furosemide 40 mg tablet 40 mg PO BID PRN Edema 07/15/21 04/07/24 dextromethorphan-guaifenesin 10 1 tab-cap PO Q4H PRN Cold Symptoms 11/29/21 04/07/24 mg-200 mg capsule (Coricidin HBP Chest Congestion-Cough) ascorbate calcium (vitamin C) 500 500 mg PO QAM 07/05/22 04/07/24 mg tablet magnesium oxide 400 mg PO QAM 07/05/22 04/07/24 ammonium lactate 12 % lotion 1 applic topical DAILY PRN unknown 08/13/23 04/07/24 cholecalciferol (vitamin D3) 10 400 unit PO QAM 08/13/23 04/07/24 mcg (400 unit) tablet (Vitamin D3) cyanocobalamin (vitamin B-12) 1,000 mcg PO QAM 08/13/23 04/07/24 1,000 mcg tablet (Vitamin B-12) diclofenac sodium 1 % topical gel 2 g topical QID PRN Pain 08/13/23 04/07/24 fluticasone 250 mcg-salmeterol 50 1 inh inhalation BID 08/13/23 04/07/24 mcg/dose blistr powdr for inhalation (Wixela Inhub) guaifenesin 600 mg tablet, 1,200 mg PO Q12H PRN Congestion 08/13/23 04/07/24 extended release 12 hr (Mucinex) isosorbide mononitrate 30 mg 30 mg PO QAM 08/13/23 04/07/24 tablet,extended release 24 hr lactase 3,000 unit tablet (Lactaid) 3,000 unit PO QID PRN unknown 08/13/23 04/07/24 valsartan 160 mg tablet See Rx Instructions .Route .COMPLEX 08/13/23 04/07/24 vitamin E 268 mg (400 unit) capsule 1 cap PO QAM 08/13/23 04/07/24 potassium chloride 10 mEq 10 meq PO DAILY PRN Edema 09/20/23 04/07/24 tablet,extended release insulin aspart U-100 100 unit/mL See Rx Instructions .Route 12/08/23 04/07/24 (3 mL) subcutaneous pen (Novolog .COMPLEX PRN blood sugar FlexPen U-100 Insulin aspart) metformin 1,000 mg tablet 500 mg PO BID 12/08/23 04/07/24 glipizide 5 mg tablet 5 mg PO DAILY Diabetie 01/03/24 04/07/24 insulin glargine 100 unit/mL 25 unit SUBCUT BID 04/03/24 04/07/24 subcutaneous solution (Lantus U-100 Insulin) Previous Rx's Medication Instructions Recorded hydralazine 25 mg tablet 25 mg PO TID #90 tabs 01/12/22 Diabetic shoes With 3 Inserts #1 ea 05/12/23 nitroglycerin 0.4 mg sublingual 0.4 mg sublingual Q5M PRN Chest 01/22/24 tablet (Nitrostat) Pain #30 tabs metolazone 5 mg tablet 5 mg PO DAILY #10 tabs 03/21/24 metoprolol tartrate 50 mg tablet 50 mg PO BID #90 tabs 03/21/24 Allergies Allergy/AdvReac Type Severity Reaction Status Date / Time lactose Allergy Mild ADR-Abdominal Verified 04/03/24 10:02 Pain montelukast Allergy Mild dyspnea Verified 04/03/24 10:02 apricot Allergy Unknown Verified 04/03/24 10:02 Penicillins Allergy Unknown Verified 04/03/24 10:02
[2024-06-12 11:24] LABS: Alanine Aminotransferase 19 U/L (0-41); Albumin Level 3.8 g/dL (3.5-5.2); Alkaline Phosphatase 153 U/L (40-130); Anion Gap 19.2 (5-19); Aspartate Amino Transferase 30 U/L (0-40); Calcium 8.5 mg/dL (8.5-10.5); Carbon Dioxide 23 mmol/L (22-29); Chloride 95 mmol/L (98-107); Creatinine Clr Calc Pharmacy 32.2846; Globulin 3.5 g/dL (1.3-4.6); Glucose 123 mg/dL (65-115); NT Pro B Type Natriuretic Pept 19269 pg/mL (0-125); Osmolality Calculated 304 mOsm/kg (285-295); Potassium 4.2 mmol/L (3.5-5.1); Sodium 133 mmol/L (136-145); Total Bilirubin 0.6 mg/dL (0.15-1.2); Total Protein 7.3 g/dL (6.6-8.7)
[2024-06-12 11:36] LABS: Blood Urea Nitrogen 87 mg/dL (8-23)
--- NOTE | 2024-06-12 12:05 | CT_ITS ---
WS: [id number] CT ABDOMEN AND PELVIS NONCONTRAST HISTORY: Renal failure, r/o obstructive uropathy per hospitalist TECHNIQUE: Imaging performed through the abdomen and pelvis. Coronal and sagittal reformats are submi tted. All CT scans at [facility] use at least one of these dose optimization techniques: auto mated exposure control; mA and/or kV adjustment per patient size (includes targeted exams where dose is matched to clinical indication); or iterative reconstruction. DLP: 997.73 mGy.cm COMPARISON: 06/01/2023 Lower thorax: Moderate cardiomegaly. Dependent changes at the lung bases. LEFT pleural calcifications . Very tiny LEFT pleural effusion. LEFT pleural effusion is similar to 06/01/2023. Liver: Liver is small with enlargement of the caudate lobe. Reidentified is a low-attenuation mass in the posterior RIGHT lobe of the liver which is increased in size measuring at least 6.2 x 8.2 cm. Bandar christine has a known hepatocellular neoplasm. Gallbladder: Normal gallbladder. No pericholecystic fluid or cholelithiasis. No gallbladder wall thic kening. Pancreas: Normal size and attenuation. Normal pancreatic duct. No pancreatitis or mass. Spleen: Normal. Adrenal glands: Normal. No mass. Right kidney: Mild renal atrophy with perinephric stranding. Hyperdense cortical nodules in the kidne y may be hemorrhagic cyst. Additional bulging of the cortex superiorly is unchanged. No obstruction. Left kidney: No renal obstruction. Hyperdense cortical nodules. Aorta: Moderate to severe atherosclerosis abdominal aorta. No aneurysm. Atherosclerosis continues int o the common iliac arteries. Interval development of small to moderate amount of ascites with diffuse mesenteric edema. Soft tissu e anasarca. GI tract: No obstruction. Abdominal wall: Umbilical hernia contains fat only. Pelvis: Small amount of free fluid in the pelvis. Negative urinary bladder. Osseous structures: L4 anterolisthesis by [address]/CT abdomen pelvis wo con [id number] IMPRESSION: 1. No renal obstruction. Mild perinephric stranding. 2. New small to moderate amount of ascites. 3. Soft tissue anasarca. 4. Stable small LEFT pleural effusion. 5. Cirrhotic liver with a known mass in the posterior RIGHT lobe which is note d to be hepatocellular carcinoma. 6. Cardiomegaly.
--- NOTE | 2024-06-12 12:20 | ECG_ITS ---
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 Measurements Intervals [place] Rate: 94 P: 103 NM: 249 QRS: -48 QRSD: 133 T: 21 QT: 460 QTc: 576 Interpretive Statements SINUS RHYTHM WITH FIRST DEGREE AV BLOCK LEFT AXIS DEVIATION [QRS AXIS < -30] RIGHT BUNDLE BRANCH BLOCK [120+ ms QRS DURATION, UPRIGHT V1, 40+ ms S IN I/aVL/V4/V5/V6] ST DEVIATION AND MODERATE T-WAVE ABNORMALITY, CONSIDER LATERAL ISCHEMIA [-0.1+ mV T-WAVE IN I/aVL/V5/V6] Compared to ECG 06/12/2024 11:04:05 First degree AV block now present Ectopic atrial rhythm no longer present T-wave abnormality still present Possible ischemia still present Electronically Signed On 06-13-2024 0:21:31 CDT by Cholo Kelsey M.D. [id number]
[2024-06-12 12:23] LABS: Glucose Point of Care 105 mg/dL (70-110)
[2024-06-12 12:42] LABS: Troponin(5th) Baseline 68 ng/L (0-15)
[2024-06-12 13:34] LABS: Lactic Sepsis W/Reflex 1.9 mmol/L (0.5-2.2)
[2024-06-12 13:59] LABS: D Dimer 2.26 ug/mLFEU (0-0.59)
[2024-06-12] MEDS: FUROsemide 10 mg/mL SDV 10mL 80 MG IVP (14:06)
[2024-06-12 14:12] LABS: Procalcitonin 0.38 ng/mL (0-0.5)
--- NOTE | 2024-06-12 15:57 | USCV_ITS ---
Torey Kaba Age: 74 Gender: M : 1950 Exam Date: 06/12/2024 16:16 Ordering Phys: Cole Peraza MD Technologist: CT Exam Location[place] [facility] [place]ication: chf BP: 122 / 63 HR: 93 Rhythm: Sinus Technical Quality: Adequate MEASUREMENTS (Male / Female) Normal Values 2D ECHO LVOT Diameter 2.2 cm LV Ejection Fraction MOD 4C 16.1 % LV Ejection Fraction MOD 2C 23.0 % LV Ejection Fraction 2C AL 25.2 % LA Diameter 5.0 cm RA Systolic Volume 4C AL 123.8 ml RA Systolic Volume 4C MOD 117.2 ml LA Sys Volume AL 131.4 cm cubed LA Sys Volume Index AL 57.8 cm cubed/m squared Aorta at Sinotubular Diameter 2.3 cm M-MODE LA Ao Ratio MM 2.2 AV Cusp Separation MM 1.8 cm DOPPLER AV Peak Velocity 145.0 cm/s LVOT Peak Velocity 78.0 cm/s AV Area Cont Eq vti 2.1 cm squared AV Area Cont Eq pk 2.0 cm squared MV Peak Velocity 133.0 cm/s MV Area PHT 5.3 cm squared Mitral E to A Ratio 176.0 TV Peak Velocity 271.5 cm/s TR Peak Velocity 306.0 cm/s TR Peak Gradient 37.5 mmHg TV Peak E Velocity 81.0 cm/s Right Atrial Pressure 3.0 mmHg Pulmonary Artery Systolic Pressu 40.5 mmHg PV Peak Velocity 85.0 cm/s FINDINGS Left Ventricle Dilated left-ventricular with a thinned out septum. Severe diffuse hypokinesia with an ejection fraction of 25%.Grade III/IV diastolic dysfunction (restrictive filling pattern), severely elevated filling pressures. Right Ventricle Dilated right ventricle with a moderately diminished ejection fraction Right Atrium Moderately increased right atrial size. Left Atrium Moderately increased left atrial size. Mitral Valve Moderate-severe mitral valve regurgitation. Aortic Valve Minimally thickened aortic valve Tricuspid Valve Mild tricuspid valve regurgitation. Estimated pulmonary artery peak systolic pressure 40 mmHg Pulmonic Valve Moderate pulmonary valve regurgitation. Pericardium No pericardial effusion. Aorta Normal aortic annulus size. IVC Inferior vena cava not visualized. CONCLUSIONS Dilated left-ventricular with a thinned out septum. Severe diffuse hypokinesia with an ejection fraction of 25%. Grade III/IV diastolic dysfunction (restrictive filling pattern), severely elevated filling pressures. Dilated right ventricle with a moderately diminished ejection fraction. Moderate biatrial enlargement Moderate-severe mitral valve regurgitation. Minimally thickened aortic valve. Mild tricuspid valve regurgitation. Estimated pulmonary artery peak systolic pressure 40 mmHg. Moderate pulmonary valve regurgitation. There is no pericardial effusion. There are no intracardiac masses. Compared to the study from 08/13/2023, there is significant drop in the LV ejection fraction from 45% to 25% Dr Cholo Kelsey MD [facility] (Electronically Signed) Final Date: 12 June 2024 23:25 S
--- NOTE | 2024-06-12 15:57 | PC.NURSE ---
Pt arrviws to ICU fro ED. Pt alert ad responsvie. Pt denies chest pain or shortness of breath at this time. 3lpm/NC noted.
--- NOTE | 2024-06-12 15:57 | ECG_ITS ---
[facility] Test Date: 2024-06-12 Pat Name: Torey Kaba Department: Room: ICU11 Gender: Male [employer]: : 1950 Requested By: Saniya Anguiano Order Number: [id number] Lianna MD: Cholo Kelsey M.D. Measurements Intervals [place] Rate: 95 P: 102 MA: 244 QRS: -50 QRSD: 134 T: 24 QT: 455 QTc: 574 Interpretive Statements SINUS RHYTHM WITH FIRST DEGREE AV BLOCK WITH OCCASIONAL VENTRICULAR PREMATURE COMPLEXES LEFT AXIS DEVIATION [QRS AXIS < -30] RIGHT BUNDLE BRANCH BLOCK [120+ ms QRS DURATION, UPRIGHT V1, 40+ ms S IN I/aVL/V4/V5/V6] ST DEVIATION AND MODERATE T-WAVE ABNORMALITY, CONSIDER LATERAL ISCHEMIA [-0.1+ mV T-WAVE IN I/aVL/V5/V6] Compared to ECG 06/12/2024 12:52:48 Ventricular premature complex(es) now present T-wave abnormality still present Possible ischemia still present Electronically Signed On 06-13-2024 22:31:59 CDT by Cholo Kelsey M.D. [id number]
[2024-06-12 17:00] LABS: Iron 35 ug/dL (59-158); Percent Saturation 12.1 % (20-50); Thyroid Stimulating Hormone 2.85 uIU/mL (0.27-4.20); Total Iron Binding Capacity 288 mcg/dl; Unsaturated Iron Binding 253 ug/dL (112-347); Vitamin B12 1965 pg/mL (232-1245)
[2024-06-12 17:02] LABS: Glucose Point of Care 103 mg/dL (70-110)
[2024-06-12 17:23] LABS: Amphetamines Screen Urine Negative (Negative); Barbiturates Screen Urine Negative (Negative); Benzodiazepines Screen Urine Negative (Negative); Cocaine Screen Urine Negative (Negative); Opiate Screen Urine Negative (Negative); PCP Screen Urine Negative (Negative); THC Screen Urine Negative (Negative)
[2024-06-12 17:29] LABS: Add Urine Microscopic? YES; Bilirubin Urine Neg (Negative); Blood Urine 3+ (Negative); Glucose Urine UA Norm (Normal); Ketones Urine Negative (Negative); Leukocyte Esterase Urine 1+ (Negative); Nitrate Urine Negative (Negative); Protein Urine 1+ (Negative); Urine Appearance Slightly Cloudy (CLEAR); Urine Color Yellow (Yellow); Urobilinogen Urine Norm (Negative); pH Urine 5 (5-7)
[2024-06-12 17:30] LABS: Add Urine Culture? Yes; Bacteria Urine TRACE /hpf; Hyaline Casts Urine 0-4 /lpf; RBC Urine >100 /hpf (0-2); WBC Urine 0-4 /hpf (0-5)
[2024-06-12 17:32] LABS: Potassium, Radom Urine 43 mmol/L; Urine Random Chloride 73 mmol/L; Urine Random Sodium 52 mmol/L
--- NOTE | 2024-06-12 17:40 | PC.NURSE ---
Brennan, non-invasive ( bioreactance) hemodynamic monitoring completed. SVI change 7%, Pt not fluid responsive. Dr Hensley notified via secure message. SVI CI HR 1732 27 2.7 98 1734 30 3 98 1736 33 3.2 98 Passive leg raise started 1738 32 3.1 98 1740 32 3.1 98 SVI change 7.1%, not responsive.
[2024-06-12 17:41] LABS: Urine Creatinine 32 mg/dL (39-259)
--- NOTE | 2024-06-12 18:02 | P.HP_ITS ---
Providers/Chief Complaint 2 Admitting Physician: Cole Peraza MD Primary Care Provider: ABDULLAHI Matta Chief Complaint: water buildup (gained 5lbs one day) History of Present Illness Torey Kaba is a 74 year old male with past medical history of CAD post CABG, unstable angina with last angiogram on 08/16, CKD with baseline creatinine of 1.7, type 2 diabetes mellitus, hypertension who presented to the ER because of worsening difficulty in breathing on exertion for last few months acutely over the last few days along with decreased urine output for last few weeks. 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 Patient checks his blood pressure at home and usually blood pressures have been running in 90 systolics. Currently supposed to take Lasix 3 times a day along with metolazone but because his urine output was decreasing he was occasionally taking Lasix only twice daily. His blood pressures have been also running low for which she has been coming down on his antihypertensives as an outpatient. He has been having chest pain on and off for which he takes sublingual nitrate. He has not taken a nitrate in last 3 days but before that he had to take nitrates for 5 times a day. Currently he starts getting short of breath on walking around 20 feet. He is also complaining of orthopnea and PND and likes to sleep better in his lazy boy rather than laying flat. He thinks he has gained around a pound to half a pound daily over last few weeks. Appetite has been poor as food is not tasting well. Review of Systems 2 General: Reports: 10 or more systems reviewed and unremarkable except in HPI and below Const: Denies: fever(s), chills, body aches, change in appetite, change in weight, malaise, night sweats, diaphoresis, change in sleep pattern, daytime sleepiness or snoring Eyes: Denies: change in vision, blurry vision, photophobia, eye discomfort or eye discharge ENMT: Denies: throat pain, enlarged tonsils, hoarseness, mouth pain, oral sores, dry mouth, tinnitus, nasal congestion or post nasal drip Card: Denies: chest pain, palpitations, irregular heart rhythm, edema, swelling of feet/ankles, lightheadedness, syncope, pre-syncope, dyspnea on exertion, orthopnea, leg pain with exertion or acrocyanosis Resp: Denies: dyspnea, productive cough, non-productive cough, wheezing, stridor, pain on inspiration, change in phlegm color, hemoptysis or chest congestion GI: Denies: abdominal pain, nausea, vomiting, hematemesis, coffee ground emesis, dysphagia, heartburn, diarrhea, constipation, bloating, GI cramping, change in bowel habits, pain on defecation, hematochezia or melena : Denies: flank pain, difficulty urinating, dysuria, urinary frequency, urinary urgency, urinary hesitancy, urinary dribbling, difficulty starting urination, change in urine stream, nocturia or hematuria Musc: Denies: neck pain, back pain, extremity pain, joint pain, joint swelling, joint redness, joint stiffness or limited range of motion Neuro: Denies: headache(s), numbness in extremities, weakness in extremities, sensory changes, lack of coordination, difficulty walking, frequent falls, dizziness, vertigo, confusion, Slurred speech present, difficulty communicating thoughts or seizure-like activity Psych: Denies: anxiety, depression, mood swings, panic attacks, hopelessness or irritability Endo: Denies: polyuria, polydipsia, tired all the time, cold intolerance, excessive sweating, flushing or heat intolerance Khari/Lymph: Denies: easy bruising or easy bleeding All/Imm: Denies: tongue swelling, facial swelling or acute wheezing Medications/Allergies Home Medications Medication Instructions Recorded Confirmed Last Taken Type aspirin 81 mg tablet,delayed 81 mg PO QAM 01/02/21 06/12/24 06/12/24 History release albuterol sulfate 90 mcg/actuation 2 puff inhalation Q6H PRN 01/25/21 06/12/24 07/27/22 06:00 History aerosol inhaler (ProAir HFA) Shortness Of Breath Or Wheezing clopidogrel 75 mg tablet 75 mg PO BEDTIME 01/25/21 06/12/24 06/11/24 History fluticasone propionate 50 1 spray intranasal BID 04/20/21 06/12/24 06/11/24 History mcg/actuation nasal spray,suspension (Allergy Relief (fluticasone)) lovastatin 40 mg tablet 20 mg PO BEDTIME 0706/12/24 06/11/24 History methocarbamol 750 mg tablet 750 mg PO Q12H PRN Muscle Pain 04/20/21 06/12/24 05/23/21 19:30 History furosemide 40 mg tablet 40 mg PO BID PRN Edema 07/15/21 06/12/24 06/12/24 History dextromethorphan-guaifenesin 10 1 tab-cap PO Q4H PRN Cold Symptoms 11/29/21 06/12/24 Unknown History mg-200 mg capsule (Coricidin HBP Chest Congestion-Cough) ascorbate calcium (vitamin C) 500 500 mg PO QAM 07/05/22 06/12/24 06/12/24 History mg tablet magnesium oxide 400 mg PO QAM 07/05/22 06/12/24 06/12/24 History Diabetic shoes With 3 Inserts #1 ea 05/12/23 06/12/24 Unknown Rx ammonium lactate 12 % lotion 1 applic topical DAILY PRN unknown 08/13/23 06/12/24 Unknown History cholecalciferol (vitamin D3) 10 400 unit PO QAM 08/13/23 06/12/24 06/12/24 History mcg (400 unit) tablet (Vitamin D3) cyanocobalamin (vitamin B-12) 1,000 mcg PO QAM 08/13/23 06/12/24 06/12/24 History 1,000 mcg tablet (Vitamin B-12) diclofenac sodium 1 % topical gel 2 g topical QID PRN Pain 08/13/23 06/12/24 06/11/24 History fluticasone 250 mcg-salmeterol 50 1 inh inhalation BID 08/13/23 06/12/24 06/12/24 History mcg/dose blistr powdr for inhalation (Wixela Inhub) guaifenesin 600 mg tablet, 1,200 mg PO Q12H PRN Congestion 08/13/23 06/12/24 Unknown History extended release 12 hr (Mucinex) isosorbide mononitrate 30 mg 30 mg PO QAM 08/13/23 06/12/24 06/12/24 History tablet,extended release 24 hr lactase 3,000 unit tablet (Lactaid) 3,000 unit PO QID PRN dairy allergy 08/13/23 06/12/24 Unknown History valsartan 160 mg tablet See Rx Instructions .Route .COMPLEX 08/13/23 06/12/24 06/12/24 History vitamin E 268 mg (400 unit) capsule 1 cap PO QAM 08/13/23 06/12/24 06/12/24 History potassium chloride 10 mEq 10 meq PO DAILY PRN Edema 09/20/23 06/12/24 06/12/24 History tablet,extended release insulin aspart U-100 100 unit/mL See Rx Instructions .Route 12/08/23 06/12/24 Unknown History (3 mL) subcutaneous pen (Novolog .COMPLEX PRN blood sugar FlexPen U-100 Insulin aspart) metformin 1,000 mg tablet 500 mg PO BID PRN Pain 12/08/23 06/12/24 06/12/24 History glipizide 5 mg tablet 5 mg PO DAILY Diabetie 01/03/24 06/12/24 06/12/24 History nitroglycerin 0.4 mg sublingual 0.4 mg sublingual Q5M PRN Chest 01/22/24 06/12/24 Unknown Rx tablet (Nitrostat) Pain #30 tabs metolazone 5 mg tablet 5 mg PO DAILY #10 tabs 03/21/24 06/12/24 Unknown Rx insulin glargine 100 unit/mL 25 unit SUBCUT BID 04/03/24 06/12/24 06/12/24 History subcutaneous solution (Lantus U-100 Insulin) carvedilol 25 mg tablet 25 mg PO BID 06/12/24 06/12/24 Unknown History hydralazine 25 mg tablet 25 mg PO BID 06/12/24 06/12/24 06/12/24 History sulfasalazine 500 mg tablet 500 mg PO BID 06/12/24 06/12/24 Unknown History Allergies Allergy/AdvReac Type Severity Reaction Status Date / Time clindamycin Allergy Severe ADR/ALGY-Pa Verified 06/12/24 17:09 lpitations lactose Allergy Mild ADR-Abdominal Verified 04/03/24 10:02 Pain montelukast Allergy Mild dyspnea Verified 04/03/24 10:02 apricot Allergy Unknown Verified 04/03/24 10:02 Penicillins Allergy Unknown Verified 04/03/24 10:02 PFSH Acute 2 PFSH: Medical History (Updated 06/12/24 @ 18:06 by Cole Peraza MD) Ischemic heart disease due to coronary artery obstruction Chronic systolic (congestive) heart failure Ischemic cardiomyopathy Sacroiliac dysfunction CKD (chronic kidney disease) Arthralgia Anemia Umbilical hernia, incarcerated Acute kidney injury Normochromic normocytic anemia Atherosclerosis of coronary artery of [place] heart without angina pectoris Sepsis Pleural effusion Community acquired pneumonia NSTEMI (non-ST elevated myocardial infarction) CHF exacerbation Restrictive lung disease Pneumonia Pancreatic cyst Pancreatitis Diabetes Hyperlipidemia Hypertension COPD (chronic obstructive pulmonary disease) Surgical History H/O esophagogastroduodenoscopy Hx of CABG History of coronary angioplasty with insertion of stent History of colonoscopy with polypectomy Family History Brother CAD (coronary artery disease) Diabetes Lung disease Sister CAD (coronary artery disease) Diabetes Cancer Lung disease Father CAD (coronary artery disease) Diabetes Lung disease Mother CAD (coronary artery disease) Diabetes Stroke Brother CAD (coronary artery disease) Diabetes Lung disease Brother CAD (coronary artery disease) Diabetes Sister CAD (coronary artery disease) Diabetes Lung disease Sister CAD (coronary artery disease) Diabetes Sister CAD (coronary artery disease) Diabetes Daughter Chronic kidney disease (CKD) Diabetes Denies family history of Clotting disorder Dementia Suicide Anesthesia complication Bleeding disorder Social History Smoking and tobacco/nicotine status: former use of tobacco/nicotine Quit status (tobacco/nicotine): has quit using Year quit tobacco: 1983 [id number] Second hand smoke exposure: No Alcohol intake: former Substance/Drug Use: never Adopted: No Caregiver/support person: Yes Lives independently: Yes Household members: spouse Housing: House Marital status: service: Yes Current occupational status: retired Pets and animals: No Leisure activites: exercise Sexually active: No Do you think of yourself as: Straight/Heterosexual Current gender identity: Male Mayra/Rastafarian: Protestant Special mayra needs: No Agree to transfusion: No Vitals/I&O/Wt Last Vital Signs Temp 98.3 F 06/12/24 10:53 Pulse 95 06/12/24 16:56 Resp 18 06/12/24 10:53 BP 113/68 06/12/24 15:03 Pulse Ox 99 06/12/24 17:11 O2 Del Method Nasal Cannula 06/12/24 17:11 O2 Flow Rate 3 06/12/24 17:11 Weight last 48 hrs Weight 101 kg Weight 100.698 kg Physical Exam 2 Narrative: General: No acute distress, AO x3 pleasant, chronically sick appearing, HEENT: PERRLA, pupils bilaterally equal and reactive Chest: Bilateral bronchial breath sounds all over lung mueller with occasional rhonchi, fine crackles bilateral lower zone CVS: S1-S2 regular, soft pansystolic murmur at apex rating to anterior axillary line, no tachycardia, no gallops, no rubs Abdomen: Soft, distended, nontender no organomegaly, bowel sounds present Neuro: No focal deficits, no facial deformity, AO x3, power 5/5 in all limbs Urinary Catheter Management: Blair: Cath Placed During This Visit: yes Urinary Catheter Date of Insertion: 06/12/24 Urinary Catheter Time of Insertion: 14:01 Data 06/12/24 10:49 06/12/24 10:49 Micro: Microbiology 06/12/24 14:32 Blood Culture - Preliminary Blood SPECIMEN COLLECTED 06/12/24 14:28 Blood Culture - Preliminary Blood SPECIMEN COLLECTED A&P Assessment and plan (1) Acute on chronic renal failure: Baseline creatinine around 1.7. Currently 2.5 with elevated BUN. Most likely in setting of congestive heart failure along with soft blood pressures at home. High concerns for cardiorenal syndrome. Blair catheterization. Strict input output charting. Cheetah examination. IV Lasix 100 mg one-time along with metolazone 5 mg oral daily. Will redose Lasix daily as per fluid status. Check urine lites, urine creatinine, urine eosinophils. CT abdomen pelvis negative for obstructive nephropathy. If kidney functions are not improving will plan to consult nephrology for further recommendations. Keep mean artery pressure 65. If needed will start on Levophed. (2) Chronic systolic (congestive) heart failure: Last echocardiogram showed an EF of 45%. Currently symptoms of dyspnea on exertion along with orthopnea with high concerns of exacerbation of congestive heart failure. Strict and proper charting, daily weights. Lasix as above. Repeat echocardiogram. proBNP elevated. Check and cycle troponins. Depending on the echocardiogram results will plan to consult cardiology. Last angiogram from July 2022 showed patent [place] to LAD and venous graft to PDA with total occlusion of venous graft to obtuse marginal and diagonal arteries with severely elevated diastolic pressures for which medical treatment was opted. (3) Ischemic cardiomyopathy: Last echocardiogram from July 2023 showed an EF of 45% with diffusely hypokinetic LV, moderately increased LA size, mildly increased RV size with PASP of 46 mmHg. (4) Hypotension: Goal blood pressure less than 140/90 mmHg with mean over 65. Blood pressures have been running low even at home. For now hold off on home isosorbide, hydralazine, valsartan. Continue with metoprolol 50 mg twice daily to avoid tachycardia. Monitor blood pressures. If needed will start Levophed and discontinue metoprolol. (5) 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: Troponins cycle and echocardiogram as above. (6) Cardiorenal syndrome: (7) Hypertension: Qualifiers: Hypertension type: essential hypertension Qualified Code(s): I10 - Essential (primary) hypertension Plan Type 2 diabetes mellitus: Episodes of hypoglycemia recently at home. Hold off on Lantus. Continue with insulin at low-dose protocol. Will restart Lantus as per 24-hour requirements. Check A1c. CODE STATUS: Discussed detail with the patient. with the DPOA. Full code Renal nondialysis diabetic diet Protonix for PUD prophylaxis Heparin for DVT prophylaxis Attestations 2 Medical Necessity Statement*: Admission for more than 2 midnights for management of WHIT on CKD, decompensated systolic congestive heart failure with concern for angina pectoris in a patient with CABG. Diagnoses Acute on chronic renal failure N17.9; N18.9 Chronic systolic (congestive) heart failure I50.22 Ischemic cardiomyopathy I25.5 Hypotension I95.9 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
[2024-06-12] MEDS: metoprolol tartrate 50 mg Tablet PO (18:29)
[2024-06-12] MEDS: pantoprazole 40 mg SDV IVP (18:32)
[2024-06-12 18:33] LABS: Troponin 5 6HR 55.98 ng/L (0-15)
[2024-06-12] MEDS: heparin 5,000 unit/mL INJ 1 mL 5000 UNIT SUBCUT (18:33)
[2024-06-12] MEDS: metOLazone 5 MG Tablet PO (18:33)
[2024-06-12 18:34] LABS: Troponin 5 6HR Delta -12.02 ng/L (0-12)
--- NOTE | 2024-06-12 19:12 | PC.NURSE ---
Shift summary: Pt resting in bed, no complaints of pain or shortness of breath. Pt did get up to bathroom without difficulty, small BM noted. Pt remains on 3lpm/NC, his home O2 amount. Sinus first degree block noted on monitor. Pt tolerated non-invasive hemodynamic monitoring well. He tolerated his meal well, ate all of it. 325ml of clear pale yellow urine noted.
[2024-06-12 19:24] LABS: MRSA PCR OZH (swab) NOT DETECTED ` (Negative)
[2024-06-12] MEDS: ipratropium-albuterol 3 mL Neb INHALATION (20:11)
[2024-06-12] MEDS: budesonide 0.5 mg/2 mL Neb INHALATION (20:11)
[2024-06-12] MEDS: clopidogrel 75 mg Tablet PO (20:51)
[2024-06-12 21:50] LABS: Glucose Point of Care 207 mg/dL (70-110)
[2024-06-12] MEDS: insulin lispro 100 unit/1 mL SUBCUT (21:54)
[2024-06-13] VITALS (52 sets, daily range): BP systolic 87–129; BP diastolic 49–89; PULSE 80–113; RESP 1–29; TEMP 35.8–36.8; O2SAT 90–100; BMI 32.1
[2024-06-13] MEDS: ipratropium-albuterol 3 mL Neb INHALATION ×4 (02:33→19:45)
[2024-06-13] MEDS: heparin 5,000 unit/mL INJ 1 mL 5000 UNIT SUBCUT ×2 (04:18→17:04)
[2024-06-13 04:57] LABS: Basophils # 0.1 10^3/uL (0.0-0.1); Basophils % 0.5 %; Eosinophils # 0.1 10^3/uL (0.0-0.8); Eosinophils % 1.1 %; Hematocrit 32.4 % (37-53); Lymphocytes # 0.3 10^3/uL (0.8-4.8); Lymphocytes % 3.1 %; Mean Corpuscular HGB Conc 30.2 g/dL (30-55); Mean Corpuscular Hemoglobin 24.7 pg (27-33); Mean Corpuscular Volume 81.6 fl (82-101); Monocytes # 0.9 10^3/uL (0.2-0.9); Monocytes % 8.8 %; Neutrophils # 8.82 10^3/uL (1.8-7.7); Neutrophils % 85.8 %; Nucleated Red Blood Cells % 0 %; Platelet Count 233 10^3/cmm (157-399); Red Blood Count 3.97 10^6/uL (3.85-5.65); Red Cell Distribution Width 20.6 % (12.1-15.1); White Blood Count 10.27 10^3/uL (3.29-11.43)
[2024-06-13 05:17] LABS: Alanine Aminotransferase 18 U/L (0-41); Albumin Level 3.7 g/dL (3.5-5.2); Alkaline Phosphatase 150 U/L (40-130); Anion Gap 18.7 (5-19); Aspartate Amino Transferase 28 U/L (0-40); Calcium 8.4 mg/dL (8.5-10.5); Carbon Dioxide 25 mmol/L (22-29); Chloride 98 mmol/L (98-107); Creatinine Clr Calc Pharmacy 33.6773; Globulin 3.4 g/dL (1.3-4.6); Glucose 175 mg/dL (65-115); Magnesium 2.8 mg/dL (1.7-2.3); Osmolality Calculated 315 mOsm/kg (285-295); Potassium 4.7 mmol/L (3.5-5.1); Sodium 137 mmol/L (136-145); Total Bilirubin 0.7 mg/dL (0.15-1.2); Total Protein 7.1 g/dL (6.6-8.7)
[2024-06-13 05:20] LABS: Chol HDL Ratio 2.38 mg/dL (1.0-5.00); Cholesterol 88 mg/dL (0-200); HDL Cholesterol 37 mg/dL (60-100); LDL Cholesterol Calculated 42 mg/dL (50-129); LDL HDL Ratio 1.14 RATIO (0.00-3.22); Triglycerides 46 mg/dL (0-150)
[2024-06-13 05:23] LABS: Procalcitonin 0.36 ng/mL (0-0.5)
[2024-06-13 05:29] LABS: Estmated Average Glucose 123; Hemoglobin A1C 5.9 % (4.0-6.0)
[2024-06-13 05:33] LABS: Folate Level 9.5 ng/mL (4.5-32.2)
[2024-06-13 05:50] LABS: Blood Urea Nitrogen 88 mg/dL (8-23)
[2024-06-13] MEDS: aspirin 81 mg EC Tablet PO (06:29)
[2024-06-13] MEDS: metOLazone 5 MG Tablet PO (08:30)
[2024-06-13] MEDS: insulin lispro 100 unit/1 mL SUBCUT ×4 (08:39→20:18)
[2024-06-13] MEDS: budesonide 0.5 mg/2 mL Neb INHALATION ×2 (08:51→19:45)
[2024-06-13 08:52] LABS: Glucose Point of Care 149 mg/dL (70-110)
--- NOTE | 2024-06-13 09:27 | PC.NURSE ---
Patient's blood pressure was 89/59 this morning and metoprolol was due. Dr. Peraza was contacted and he ordered to hold the metoprolol and start levophed at 2mcg/min.
[2024-06-13] MEDS: norepinephrine 4 MG/250 ML BAG 7.5 MG IV (09:49)
[2024-06-13 11:51] LABS: Glucose Point of Care 267 mg/dL (70-110)
--- NOTE | 2024-06-13 13:15 | XR_ITS ---
WS: [id number] Portable AP upright chest, 06/13/2024 Clinical Data: picc line Comparison: None. Findings: The right PICC line enters from the axillary vein and ends in the superior vena cava at its midportion. No pneumothorax is seen. XR/XR chest 1V portable [id number] Impression: Satisfactory placement of right PICC line.
[2024-06-13] MEDS: bumetanide 0.25 mg/mL SDV 10 mL 2 MG IVP ×2 (13:35→20:18)
--- NOTE | 2024-06-13 14:54 | P.PN_ITS ---
Subjective 2 Subjective: No acute events overnight. Today morning seen with at bedside. Overnight patient has remained afebrile. Today morning patient has soft blood pressures with mean artery pressure of less than 65. He has remained at more than 95% on 2 to 3 L oxygen supplementation. Urine output of around 700 cc since admission in last 12 hours Vitals/I&O/Wt Last Vital Signs Temp 96.5 F L 06/13/24 11:00 Pulse 91 06/13/24 13:59 Resp 16 06/13/24 13:59 BP 110/58 06/13/24 11:00 Pulse Ox 98 06/13/24 13:59 O2 Del Method Nasal Cannula 06/13/24 13:59 O2 Flow Rate 3 06/13/24 13:59 06/12/24 06/13/24 06/13/24 22:59 06:59 14:59 Intake Total 470 / 470 120 / 590 480 / 480 Output Total 375 / 375 350 / 350 Balance 95 / 95 120 / 215 130 / 130 Weight last 48 hrs Weight 104.5 kg Weight 103 kg Weight 101 kg Weight 100.698 kg Physical Exam 2 Narrative: General: No acute distress, AO x3 pleasant, chronically sick appearing, HEENT: PERRLA, pupils bilaterally equal and reactive Chest: Bilateral bronchial breath sounds all over lung mueller with occasional rhonchi, fine crackles bilateral lower zone CVS: S1-S2 regular, soft pansystolic murmur at apex rating to anterior axillary line, no tachycardia, no gallops, no rubs Abdomen: Soft, distended, nontender no organomegaly, bowel sounds present Neuro: No focal deficits, no facial deformity, AO x3, power 5/5 in all limbs Urinary Catheter Management: Blair: Cath Placed During This Visit: yes Reason for Continuing Indwelling Catheter: Accurate Measurement of Urinary Output in Critically Ill Patients Urinary Catheter Date of Insertion: 06/12/24 Urinary Catheter Time of Insertion: 14:01 Data 06/13/24 04:15 06/13/24 04:15 Micro: Microbiology 06/12/24 14:32 Blood Culture - Preliminary Blood NEGATIVE TO DATE 06/12/24 14:28 Blood Culture - Preliminary Blood NEGATIVE TO DATE 06/12/24 17:45 Bacterial Antigens - Final Urine Kidney A&P Assessment and plan (1) Acute on chronic renal failure: Baseline creatinine 1.7. Currently showing slight improvement with creatinine down to 2.4. Most likely in setting of congestive heart failure along with soft blood pressures at home. High concerns for cardiorenal syndrome. Blair catheterization. Strict input output charting. Cheetah examination shows patient being not fluid responsive on 06/12. Appreciate urine lites with urine sodium of 52 and creatinine of 32. Fena?3.1 consistent with intrinsic pathology. CT abdomen pelvis negative for obstructive nephropathy. Will plan to keep mean arterial pressure around 65. IV Bumex Q8 hourly 2 mg. Continue with metolazone 5 mg oral daily. If not responding will start on Bumex drip. If kidney functions are not improving will plan to consult nephrology for further recommendations. (2) Cardiogenic shock: With episodes of hypotension at home as well. Maintain mean artery pressure 65. Started on Levophed and wean accordingly. (3) Chronic systolic (congestive) heart failure: New echocardiogram shows worsening of EF down to 25% Currently symptoms of dyspnea on exertion along with orthopnea with high concerns of exacerbation of congestive heart failure. Strict input and output charting, daily weights. Bumex as above. proBNP elevated. Troponin cycled not significant. Will consult cardiology for further recommendations given worsening of EF. Last angiogram from July 2022 showed patent [place] to LAD and venous graft to PDA with total occlusion of venous graft to obtuse marginal and diagonal arteries with severely elevated diastolic pressures for which medical treatment was opted. (4) Ischemic cardiomyopathy: Echocardiogram done shows an EF of 25% with grade 3 diastolic dysfunction, dilated RA with moderate diminished ejection fraction, moderate biatrial enlargement, moderate to severe mitral valve regurgitation, mild TR with PASP of 40 mmHg with moderate pulmonary valve regurgitation. Patient has worsening of EF. Denies any current chest pain. Troponin cycle negative. For now continue with home dose of aspirin, Plavix. Appreciate lipid panel. A1c of 5.9. (5) Hypotension: Goal blood pressure less than 140/90 mmHg with mean over 65. Blood pressures have been running low even at home. For now hold off on home isosorbide, hydralazine, valsartan. Continue with metoprolol 50 mg twice daily to avoid tachycardia. Monitor blood pressures. If needed will start Levophed and discontinue metoprolol. 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 (7) Cardiorenal syndrome: (8) Hypertension: Qualifiers: Hypertension type: essential hypertension Qualified Code(s): I10 - Essential (primary) hypertension Plan Type 2 diabetes mellitus: Episodes of hypoglycemia recently at home. Hold off on Lantus. Continue with insulin at low-dose protocol. Will restart Lantus as per 24-hour requirements. A1c of 5.9. Plan for PICC line placement because of poor vascular access and patient requiring Levophed and possibly diuretic drip. CODE STATUS: Discussed detail with the patient. with the DPOA. Full code Renal nondialysis diabetic diet Protonix for PUD prophylaxis Heparin for DVT prophylaxis Attestations 2 Medical Necessity Statement*: Patient requires further hospitalization for management of cardiogenic shock in setting of ischemic cardiomyopathy with a EF of 25%, WHIT on CKD currently on Levophed Critical Care Time: The high probability of a clinically significant, sudden or life threatening deterioration of the patient's [cardiac, pulmonary, renal] system(s) required my full and direct attention, intervention and personal management. The critical care time is as shown. This time is in addition to time spent performing any reported procedures but includes the following: [x] Data and vital sign review and interpretation [x] Patient assessment, examination and intervention [x] Documentation [x] Medication orders and management Critical Care Time (min): 80 Coding Level of Care Code Critical Care >/= 30 minutes Critical care time (in minutes): 80 The high probability of a clinically significant, sudden or life threatening deterioration, as referenced in this documentation, required my full and direct attention, intervention and personal management. The critical care time shown is in addition to time spent performing any reported separately billable procedures and includes the following: [x] Data and vital sign review and interpretation [x ] Patient assessment, examination and intervention [x] Medication orders and management [x] Patient/Family updates as able [x] Care Coordination and Documentation. Other Coding Information This patient has a high probability of clinically significant, sudden or life threatening deterioration of the patient's (neurological/pulmonary/cardiac/renal/ID/endocrine) systems required my full, direct attention, the highest level of physician preparedness for urgent intervention and personal management. I managed/supervised life or organ supporting interventions that required frequent physician assessment. I devoted my full attention in the ICU to the direct care of this patient for the period of time indicated above. Time I spent with family or surrogate(s) is included only if the patient was incapable of providing necessary information or participating in decision making. This time includes the following services provided: Telemetry review Hemodynamic interpretation, assessment and management Review and interpretation of CXR Review and interpretation of lab values Review and interpretation of microbiologic data and culture results Review of medications and administration Review and interpretation of Nutrition requirements and management Discussion of management with other consultants and services Clinical update to family members Diagnoses Acute on chronic renal failure N17.9; N18.9 Cardiogenic shock R57.0 Chronic systolic (congestive) heart failure I50.22 Ischemic cardiomyopathy I25.5 Hypotension I95.9 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
[2024-06-13 16:21] LABS: Anion Gap 18.9 (5-19); Calcium 8.3 mg/dL (8.5-10.5); Carbon Dioxide 24 mmol/L (22-29); Chloride 95 mmol/L (98-107); Creatinine Clr Calc Pharmacy 35.7164; Glucose 211 mg/dL (65-115); Osmolality Calculated 310 mOsm/kg (285-295); Potassium 3.9 mmol/L (3.5-5.1); Sodium 134 mmol/L (136-145)
[2024-06-13 16:28] LABS: Blood Urea Nitrogen 85 mg/dL (8-23)
[2024-06-13] MEDS: potassium chloride ER 20 mEq Tablet 40 MEQ PO (17:04)
[2024-06-13] MEDS: pantoprazole 40 mg SDV IVP (17:05)
[2024-06-13 18:32] LABS: Glucose Point of Care 209 mg/dL (70-110)
[2024-06-13 20:18] LABS: Glucose Point of Care 226 mg/dL (70-110)
[2024-06-13] MEDS: clopidogrel 75 mg Tablet PO (20:18)
[2024-06-14] VITALS (42 sets, daily range): BP systolic 100–162; BP diastolic 56–82; PULSE 92–111; RESP 12–25; TEMP 36.4–37.1; O2SAT 88–100; BMI 30.6
[2024-06-14] MEDS: ipratropium-albuterol 3 mL Neb INHALATION ×4 (01:56→20:55)
[2024-06-14] MEDS: bumetanide 0.25 mg/mL SDV 10 mL 2 MG IVP ×3 (03:56→20:46)
[2024-06-14] MEDS: heparin 5,000 unit/mL INJ 1 mL 5000 UNIT SUBCUT ×2 (03:56→15:20)
[2024-06-14 04:09] LABS: Basophils # 0.1 10^3/uL (0.0-0.1); Basophils % 0.6 %; Eosinophils # 0.4 10^3/uL (0.0-0.8); Eosinophils % 3.7 %; Hematocrit 31.1 % (37-53); Lymphocytes # 0.5 10^3/uL (0.8-4.8); Lymphocytes % 4.9 %; Mean Corpuscular HGB Conc 30.9 g/dL (30-55); Mean Corpuscular Hemoglobin 24.9 pg (27-33); Mean Corpuscular Volume 80.8 fl (82-101); Mean Platelet Volume 9.8 fL (7.4-10.4); Neutrophils # 8.92 10^3/uL (1.8-7.7); Neutrophils % 81.3 %; Nucleated Red Blood Cells % 0 %; Platelet Count 235 10^3/cmm (157-399); Red Blood Count 3.85 10^6/uL (3.85-5.65); Red Cell Distribution Width 20.7 % (12.1-15.1); White Blood Count 10.99 10^3/uL (3.29-11.43)
[2024-06-14 04:40] LABS: Alanine Aminotransferase 15 U/L (0-41); Albumin Level 3.6 g/dL (3.5-5.2); Alkaline Phosphatase 138 U/L (40-130); Aspartate Amino Transferase 23 U/L (0-40); Calcium 8.3 mg/dL (8.5-10.5); Carbon Dioxide 25 mmol/L (22-29); Chloride 96 mmol/L (98-107); Creatinine Clr Calc Pharmacy 34.2282; Globulin 3.3 g/dL (1.3-4.6); Glucose 150 mg/dL (65-115); Osmolality Calculated 308 mOsm/kg (285-295); Sodium 135 mmol/L (136-145); Total Bilirubin 0.6 mg/dL (0.15-1.2); Total Protein 6.9 g/dL (6.6-8.7)
[2024-06-14 04:44] LABS: Cortisol Random 12.39 ug/dL (2.47-19.5)
[2024-06-14 04:48] LABS: Anion Gap 17.7 (5-19); Potassium 3.7 mmol/L (3.5-5.1)
[2024-06-14 04:51] LABS: Blood Urea Nitrogen 84 mg/dL (8-23)
[2024-06-14] MEDS: aspirin 81 mg EC Tablet PO (06:30)
[2024-06-14 07:33] LABS: Glucose Point of Care 162 mg/dL (70-110)
[2024-06-14] MEDS: insulin lispro 100 unit/1 mL SUBCUT ×4 (08:16→20:46)
[2024-06-14] MEDS: metOLazone 5 MG Tablet PO (08:16)
--- NOTE | 2024-06-14 09:00 | PM.CONSULT ---
Providers/Reason For Consult Consulting Physician/Specialty*: LESLI Kelsey MD/cardiology Reason for Consult*: Patient with congestive heart failure, atherosclerotic heart diseas, significant drop in the LV ejection fraction by echocardiogram Requesting Physician: Dr. Peraza Attending Physician: Cole Peraza MD Primary Care Provider: ABDULLAHI Matta History of Present Illness History of Present Illness Torey Kaba is a 74 year old male with multiple medical problems, is admitted to the hospital with complaints of progressive shortness of breath, low urine output, low blood pressure and feeling of generalized weakness. This patient has a history of atherosclerotic heart diseas, ischemic cardiomyopathy, congestive heart failure and chronic kidney disease. He has been in his baseline state of health up until few weeks ago when he started noticing decreasing urine output. He also been experience increasing shortness of breath and weight gain. He may have gained around 20 pounds in the last couple of months. Did not have any fever or chills. No severe cough. He had some medication changes by his primary care provider and the playground equipment erector. Apparently it was not helping his symptoms. On the day of admission, he gained 5 pounds within 24 hours. Because of the worsening of the symptoms, he was brought to the hospital. Patient may have occasional chest tightness/heaviness. The frequency and the duration of the symptoms have not changed much. He is mainly concerned about the low urine output, increasing shortness of breath and weight gain. Patient has a history of atherosclerotic heart diseas and had 7 vessel coronary bypass surgery in 2004. He had the most recent coronary angiogram in July 2022. At that time, he was found to have a total occlusion of the mid LAD. Mild to moderate diffuse disease in the circumflex artery with the severe diffuse in the second obtuse marginal branch. The right coronary artery was found to have severe diffuse disease with a total occlusion of the PDA at the ostium. The venous graft to the obtuse marginal and the diagonal arteries were found to be totally occluded. The venous graft to the PDA was found to be patent. So also the CONROY to the LAD. Based on the angiogram findings at that time, it was decided to treat him medically. The LV ejection fraction by echocardiogram in 2021 was 45%. The most recent echocardiogram revealed ejection fraction around 25%. His other medical problems include peripheral artery disease, status post percutaneous intervention on the right side few years ago. History of COPD, gouty arthritis, pancreatitis, chronic kidney disease being followed by the playground equipment erector. He also has a history of pancreatitis and a pancreatic cyst History of hypertension. But lately his blood pressure has been running low. His medications were tapered down. History of diabetes ? Review of Systems Narrative: CONSTITUTIONAL: No fever or chills. EYES: No blurring of vision or other visual disturbances lately. ENT: No hoarseness of voice, auditory disturbances or sore throat. CARDIOVASCULAR: As mentioned above. RESPIRATORY: Shortness of breath as mentioned above GASTROINTESTINAL: History of pancreatitis, constipation GENITOURINARY: Decreasing urine output as mentioned above INTEGUMENTARY: No skin rashes or history of skin cancer. NEURO: No transient ischemic attacks or amaurosis. PSYCHIATRIC: No history of psychosis or major depression. HEMATOLOGIC: History of chronic anemia ENDOCRINE: History of type 2 diabetes MUSCULOSKELETAL: No recent joint pain or swelling. ALLERGY/IMMUNOLOGY: As mentioned above. Medications/Allergies Home Medications Medication Instructions Recorded Confirmed Last Taken Type aspirin 81 mg tablet,delayed 81 mg PO QAM 01/02/21 06/12/24 06/12/24 History release albuterol sulfate 90 mcg/actuation 2 puff inhalation Q6H PRN 01/25/21 06/12/24 07/27/22 06:00 History aerosol inhaler (ProAir HFA) Shortness Of Breath Or Wheezing clopidogrel 75 mg tablet 75 mg PO BEDTIME 01/25/21 06/12/24 06/11/24 History fluticasone propionate 50 1 spray intranasal BID 04/20/21 06/12/24 06/11/24 History mcg/actuation nasal spray,suspension (Allergy Relief (fluticasone)) lovastatin 40 mg tablet 20 mg PO BEDTIME 04/20/21 06/12/24 06/11/24 History methocarbamol 750 mg tablet 750 mg PO Q12H PRN Muscle Pain 04/20/21 06/12/24 05/23/21 19:30 History furosemide 40 mg tablet 40 mg PO BID PRN Edema 07/15/21 06/12/24 06/12/24 History dextromethorphan-guaifenesin 10 1 tab-cap PO Q4H PRN Cold Symptoms 11/29/21 06/12/24 Unknown History mg-200 mg capsule (Coricidin HBP Chest Congestion-Cough) ascorbate calcium (vitamin C) 500 500 mg PO QAM 07/05/22 06/12/24 06/12/24 History mg tablet magnesium oxide 400 mg PO QAM 07/05/22 06/12/24 06/12/24 History Diabetic shoes With 3 Inserts #1 ea 05/12/23 06/12/24 Unknown Rx ammonium lactate 12 % lotion 1 applic topical DAILY PRN unknown 08/13/23 06/12/24 Unknown History cholecalciferol (vitamin D3) 10 400 unit PO QAM 08/13/23 06/12/24 06/12/24 History mcg (400 unit) tablet (Vitamin D3) cyanocobalamin (vitamin B-12) 1,000 mcg PO QAM 08/13/23 06/12/24 06/12/24 History 1,000 mcg tablet (Vitamin B-12) diclofenac sodium 1 % topical gel 2 g topical QID PRN Pain 08/13/23 06/12/24 06/11/24 History fluticasone 250 mcg-salmeterol 50 1 inh inhalation BID 08/13/23 06/12/24 06/12/24 History mcg/dose blistr powdr for inhalation (Wixela Inhub) guaifenesin 600 mg tablet, 1,200 mg PO Q12H PRN Congestion 08/13/23 06/12/24 Unknown History extended release 12 hr (Mucinex) isosorbide mononitrate 30 mg 30 mg PO QAM 08/13/23 06/12/24 06/12/24 History tablet,extended release 24 hr lactase 3,000 unit tablet (Lactaid) 3,000 unit PO QID PRN dairy allergy 08/13/23 06/12/24 Unknown History valsartan 160 mg tablet See Rx Instructions .Route .COMPLEX 08/13/23 06/12/24 06/12/24 History vitamin E 268 mg (400 unit) capsule 1 cap PO QAM 08/13/23 06/12/24 06/12/24 History potassium chloride 10 mEq 10 meq PO DAILY PRN Edema 09/20/23 06/12/24 06/12/24 History tablet,extended release insulin aspart U-100 100 unit/mL See Rx Instructions .Route 12/08/23 06/12/24 Unknown History (3 mL) subcutaneous pen (Novolog .COMPLEX PRN blood sugar FlexPen U-100 Insulin aspart) metformin 1,000 mg tablet 500 mg PO BID PRN Pain 12/08/23 06/12/24 06/12/24 History glipizide 5 mg tablet 5 mg PO DAILY Diabetie 01/03/24 06/12/24 06/12/24 History nitroglycerin 0.4 mg sublingual 0.4 mg sublingual Q5M PRN Chest 01/22/24 06/12/24 Unknown Rx tablet (Nitrostat) Pain #30 tabs metolazone 5 mg tablet 5 mg PO DAILY #10 tabs 03/21/24 06/12/24 Unknown Rx insulin glargine 100 unit/mL 25 unit SUBCUT BID 04/03/24 06/12/24 06/12/24 History subcutaneous solution (Lantus U-100 Insulin) carvedilol 25 mg tablet 25 mg PO BID 06/12/24 06/12/24 Unknown History hydralazine 25 mg tablet 25 mg PO BID 06/12/24 06/12/24 06/12/24 History sulfasalazine 500 mg tablet 500 mg PO BID 06/12/24 06/12/24 Unknown History Allergies Allergy/AdvReac Type Severity Reaction Status Date / Time clindamycin Allergy Severe ADR/ALGY-Pa Verified 06/12/24 17:09 lpitations lactose Allergy Mild ADR-Abdominal Verified 04/03/24 10:02 Pain montelukast Allergy Mild dyspnea Verified 04/03/24 10:02 apricot Allergy Unknown Verified 04/03/24 10:02 Penicillins Allergy Unknown Verified 04/03/24 10:02 Current Medications Generic Name Dose Route Start Last Admin Trade Name Freq PRN Reason Stop Dose Admin Albuterol/Ipratropium 3 ml 06/12/24 15:57 06/14/24 01:56 Ipratropium-Albuterol 3 Ml Neb INHALATION 3 ml Q6H.RESP NIDHI Administration Aspirin 81 mg 06/13/24 06:00 06/14/24 06:30 Aspirin 81 Mg Ec Tablet PO 81 mg QAM NIDHI Administration Budesonide 0.5 mg 06/12/24 20:00 06/13/24 19:45 Budesonide 0.5 Mg/2 Ml Neb INHALATION 0.5 mg BID.RESPIRATORY NIDHI Administration Bumetanide 2 mg 06/13/24 12:15 06/14/24 03:56 Bumetanide 0.25 Mg/Ml Sdv 10 Ml IVP 2 mg Q8H NIDHI Administration Clopidogrel Bisulfate 75 mg 06/12/24 21:00 06/13/24 20:18 Clopidogrel 75 Mg Tablet PO 75 mg BEDTIME NIDHI Administration Heparin Sodium (Porcine) 5,000 unit 06/12/24 15:57 06/14/24 03:56 Heparin 5,000 Unit/Ml Inj 1 Ml SUBCUT 5,000 unit Q12H NIDHI Administration Norepinephrine Bitartrate 4 mg in 250 mls @ 0 mls/hr 06/13/24 09:30 06/14/24 00:13 Levophed IV 0 mcg/min .Q0M NIDHI 0 mls/hr Titration Protocol Per Protocol Insulin Human Lispro 0 unit 06/12/24 18:00 06/14/24 08:16 Insulin Lispro 100 Unit/1 Ml SUBCUT 2 unit WM&BEDTIME NIDHI Administration Protocol Metolazone 5 mg 06/12/24 17:30 06/14/24 08:16 Metolazone 5 Mg Tablet PO 5 mg DAILY NIDHI Administration Pantoprazole Sodium 40 mg 06/12/24 15:57 06/13/24 17:05 Pantoprazole 40 Mg Sdv IVP 40 mg Q24H NIDHI Administration PFSH Acute PFSH: Medical History (Updated 06/14/24 @ 10:21 by Cholo Kelsey MD) Ischemic heart disease due to coronary artery obstruction Chronic systolic (congestive) heart failure Ischemic cardiomyopathy Sacroiliac dysfunction CKD (chronic kidney disease) Arthralgia Anemia Umbilical hernia, incarcerated Acute kidney injury Normochromic normocytic anemia Atherosclerosis of coronary artery of [place] heart without angina pectoris Sepsis Pleural effusion Community acquired pneumonia NSTEMI (non-ST elevated myocardial infarction) CHF exacerbation Restrictive lung disease Pneumonia Pancreatic cyst Pancreatitis Diabetes Hyperlipidemia Hypertension COPD (chronic obstructive pulmonary disease) Surgical History H/O esophagogastroduodenoscopy Hx of CABG History of coronary angioplasty with insertion of stent History of colonoscopy with polypectomy Family History Brother CAD (coronary artery disease) Diabetes Lung disease Sister CAD (coronary artery disease) Diabetes Cancer Lung disease Father CAD (coronary artery disease) Diabetes Lung disease Mother CAD (coronary artery disease) Diabetes Stroke Brother CAD (coronary artery disease) Diabetes Lung disease Brother CAD (coronary artery disease) Diabetes Sister CAD (coronary artery disease) Diabetes Lung disease Sister CAD (coronary artery disease) Diabetes Sister CAD (coronary artery disease) Diabetes Daughter Chronic kidney disease (CKD) Diabetes Denies family history of Clotting disorder Dementia Suicide Anesthesia complication Bleeding disorder Social History Smoking and tobacco/nicotine status: former use of tobacco/nicotine Quit status (tobacco/nicotine): has quit using Year quit tobacco: 1983 [id number] Second hand smoke exposure: No Alcohol intake: former Substance/Drug Use: never Adopted: No Caregiver/support person: Yes Lives independently: Yes Household members: spouse Housing: House Marital status: service: Yes Current occupational status: retired Pets and animals: No Leisure activites: exercise Sexually active: No Do you think of yourself as: Straight/Heterosexual Current gender identity: Male Mayra/Moravian: Adventism Special mayra needs: No Agree to transfusion: No Vitals/I&O/Wt Last Vital Signs Temp 98.0 F 06/14/24 04:00 Pulse 98 06/14/24 08:00 Resp 17 06/14/24 08:00 BP 118/66 06/14/24 08:00 Pulse Ox 99 06/14/24 08:00 O2 Del Method Nasal Cannula 06/14/24 04:00 O2 Flow Rate 3 06/14/24 04:00 06/13/24 06/14/24 06/14/24 22:59 06:59 14:59 Intake Total 480 / 960 648 / 1608 Output Total 800 / 1150 2700 / 3850 Balance -320 / -190 -2052 / -2242 Weight last 48 hrs Weight 219 lb 7 oz Weight 230 lb 6.129 oz Weight 227 lb 1.218 oz Weight 222 lb 10.67 oz Weight 222 lb Physical Exam Narrative: GENERAL: The patient is alert and oriented times three. Not in any acute distress. HEENT: No significant pallor, icterus or lymphadenopathy.Oral cavity: There are no mucous membrane lesions. NECK: Trachea appears to be central. No masses noted. No JVD or thyromegaly appreciated. RESPIRATORY: Chest is symmetrical. No intercostals muscle retraction or any accessory muscle activation. There is no chest wall tenderness. Breath sounds are heard bilaterally. No rales or rhonchi heard. No evidence of any consolidation. BREASTS: Deferred. HEART: The heart sounds are normal. No S3 or S4. Short systolic murmur in the lower sternal border. No diastolic murmurs.. No pericardial rub ABDOMEN: No vessel pulsations or distention. No tenderness. No organomegaly appreciated. Bowel sounds are normally heard. : Deferred. RECTAL: Deferred. LYMPHATIC: No lymphadenopathy noted in the neck. EXTREMITIES: No edema or cyanosis. No clubbing. MUSCULOSKELETAL: No acute joint deformities or swelling SKIN: There are no significant rashes or ecchymosis NEUROPSYCHIATRIC: The patient is alert and oriented x3. Appears to be in a good mood. No tremors or rigidity noted. Urinary Catheter Management: Bliar: Cath Placed During This Visit: yes Reason for Continuing Indwelling Catheter: Accurate Measurement of Urinary Output in Critically Ill Patients Urinary Catheter Date of Insertion: 06/12/24 Urinary Catheter Time of Insertion: 14:01 Data 06/14/24 03:57 06/14/24 03:57 Other Labs: Laboratory Last Values WBC 10.99 10^3/uL (3.29-11.43) 06/14/24 03:57 RBC 3.85 10^6/uL (3.85-5.65) 06/14/24 03:57 Hgb 9.60 g/dL (11.27-16.99) L 06/14/24 03:57 Hct 31.1 % (37-53) L 06/14/24 03:57 MCV 80.8 fl (82-101) L 06/14/24 03:57 MCH 24.9 pg (27-33) L 06/14/24 03:57 MCHC 30.9 g/dL (30-55) 06/14/24 03:57 RDW 20.7 % (12.1-15.1) H 06/14/24 03:57 Plt Count 235 10^3/cmm (157-399) 06/14/24 03:57 MPV 9.8 fL (7.4-10.4) 06/14/24 03:57 Neut % (Auto) 81.3 % 06/14/24 03:57 Lymph % (Auto) 4.9 % 06/14/24 03:57 [place] % (Auto) 9.0 % 06/14/24 03:57 Eos % (Auto) 3.7 % 06/14/24 03:57 Baso % (Auto) 0.6 % 06/14/24 03:57 Neut # (Auto) 8.92 10^3/uL (1.8-7.7) H 06/14/24 03:57 Lymph # (Auto) 0.5 10^3/uL (0.8-4.8) L 06/14/24 03:57 [place] # (Auto) 1.0 10^3/uL (0.2-0.9) H 06/14/24 03:57 Eos # (Auto) 0.4 10^3/uL (0.0-0.8) 06/14/24 03:57 Baso # (Auto) 0.1 10^3/uL (0.0-0.1) 06/14/24 03:57 Nucleated RBC % (auto) 0 % 06/14/24 03:57 Nucleated RBCs # 0.0 /100WBC 06/14/24 03:57 D-Dimer 2.26 ug/mLFEU (0-0.59) H 06/12/24 10:49 Sodium 135 mmol/L (136-145) L 06/14/24 03:57 Potassium 3.7 mmol/L (3.5-5.1) 06/14/24 03:57 Chloride 96 mmol/L (98-107) L 06/14/24 03:57 Carbon Dioxide 25 mmol/L (22-29) 06/14/24 03:57 Anion Gap 17.7 (5-19) 06/14/24 03:57 BUN 84 mg/dL (8-23) H* 06/14/24 03:57 Creatinine 2.4 mg/dL (0.7-1.2) H 06/14/24 03:57 GFR Calculation Not Reportable 06/14/24 03:57 Glucose 150 mg/dL (65-115) H 06/14/24 03:57 POC Glucose 162 mg/dL (70-110) H 06/14/24 07:29 Estimat Average Glucose 123 06/13/24 04:15 Hemoglobin A1c 5.9 % (4.0-6.0) 06/13/24 04:15 Calculated Osmolality 308 mOsm/kg (285-295) H 06/14/24 03:57 Lactic Acid 1.9 mmol/L (0.5-2.2) 06/12/24 10:49 Calcium 8.3 mg/dL (8.5-10.5) L 06/14/24 03:57 Phosphorus 5.0 mg/dL (2.5-4.5) H 06/13/24 04:15 Magnesium 2.8 mg/dL (1.7-2.3) H 06/13/24 04:15 Iron 35 ug/dL (59-158) L 06/12/24 10:49 TIBC 288 mcg/dl 06/12/24 10:49 % Saturation 12.1 % (20-50) L 06/12/24 10:49 Unsat Iron Binding 253 ug/dL (112-347) 06/12/24 10:49 Total Bilirubin 0.6 mg/dL (0.15-1.2) 06/14/24 03:57 AST 23 U/L (0-40) 06/14/24 03:57 ALT 15 U/L (0-41) 06/14/24 03:57 Alkaline Phosphatase 138 U/L (40-130) H 06/14/24 03:57 Troponin T Baseline 68 ng/L (0-15) H 06/12/24 10:49 Troponin T Hi Sens 6Hr 55.98 ng/L (0-15) H 06/12/24 17:46 Troponin T Hi Sens 6Hr Delta -12.02 ng/L (0-12) L 06/12/24 17:46 NT-Pro-B Natriuret Pep 30586 pg/mL (0-125) H 06/12/24 10:49 Total Protein 6.9 g/dL (6.6-8.7) 06/14/24 03:57 Albumin 3.6 g/dL (3.5-5.2) 06/14/24 03:57 Globulin 3.3 g/dL (1.3-4.6) 06/14/24 03:57 Triglycerides 46 mg/dL (0-150) 06/13/24 04:15 Cholesterol 88 mg/dL (0-200) 06/13/24 04:15 LDL Cholesterol, Calc 42 mg/dL (50-129) L 06/13/24 04:15 HDL Cholesterol 37 mg/dL (60-100) L 06/13/24 04:15 LDL/HDL Ratio 1.14 RATIO (0.00-3.22) 06/13/24 04:15 Cholesterol/HDL Ratio 2.38 mg/dL (1.0-5.00) 06/13/24 04:15 Vitamin B12 1965 pg/mL (232-1245) H 06/12/24 10:49 Folate 9.5 ng/mL (4.5-32.2) 06/13/24 04:15 Procalcitonin 0.36 ng/mL (0-0.5) 06/13/24 04:15 TSH 2.85 uIU/mL (0.27-4.20) 06/12/24 10:49 Random Cortisol 12.39 ug/dL (2.47-19.5) 06/14/24 03:57 Urine Color Yellow (Yellow) 06/12/24 17:00 Urine Appearance Slightly cloudy (CLEAR) 06/12/24 17:00 Urine pH 5 (5-7) 06/12/24 17:00 Ur Specific [place] 1.010 (1.005-1.030) 06/12/24 17:00 Urine Protein 1+ (Negative) H 06/12/24 17:00 Urine Glucose (UA) Norm (Normal) 06/12/24 17:00 Urine Ketones Negative (Negative) 06/12/24 17:00 Urine Blood 3+ (Negative) H 06/12/24 17:00 Urine Nitrate Negative (Negative) 06/12/24 17:00 Urine Bilirubin Neg (Negative) 06/12/24 17:00 Urine Urobilinogen Norm mg/dL (Negative) 06/12/24 17:00 Ur Leukocyte Esterase 1+ (Negative) H 06/12/24 17:00 Urine RBC >100 /hpf (0-2) H 06/12/24 17:00 Urine WBC 0-4 /hpf (0-5) H 06/12/24 17:00 Ur Squamous Epith Cells None /hpf (0-5) 06/12/24 17:00 Amorphous Sediment Not Reportable 06/12/24 17:00 Urine Bacteria Trace /hpf (NONE) 06/12/24 17:00 Hyaline Casts 0-4 /lpf H 06/12/24 17:00 Ur Random Sodium 52 mmol/L 06/12/24 17:00 Ur Random Potassium 43 mmol/L 06/12/24 17:00 Ur Random Chloride 73 mmol/L 06/12/24 17:00 Urine Creatinine 32 mg/dL (39-259) L 06/12/24 17:00 Nasal MRSA (PCR) Not detected ` (Negative) 06/12/24 17:43 Urine Opiates Screen Negative ng/mL (Negative) 06/12/24 17:00 Ur Barbiturates Screen Negative ng/mL (Negative) 06/12/24 17:00 Ur Phencyclidine Scrn Negative ng/mL (Negative) 06/12/24 17:00 Ur Amphetamines Screen Negative ng/mL (Negative) 06/12/24 17:00 U Benzodiazepines Scrn Negative ng/mL (Negative) 06/12/24 17:00 Urine Cocaine Screen Negative ng/mL (Negative) 06/12/24 17:00 U Marijuana (THC) Screen Negative ng/mL (Negative) 06/12/24 17:00 MRSA (PCR) Cancelled 06/12/24 Unknown Micro: Microbiology 06/12/24 17:00 Urine Culture - Preliminary Urine,Clean Catch 06/12/24 14:32 Blood Culture - Preliminary Blood NEGATIVE TO DATE 06/12/24 14:28 Blood Culture - Preliminary Blood NEGATIVE TO DATE 06/12/24 17:45 Bacterial Antigens - Final Urine Kidney Other data: EKG on 06/12/2024 Normal sinus rhythm with a first-degree AV block. Right bundle branch block pattern. Left axis deviation. Diffuse nonspecific ST-T changes. Occasional PVCs. Echocardiogram on 06/12/2024 Dilated left-ventricular with a thinned out septum.Severe diffuse hypokinesia with an ejection fraction of 25%. Grade III/IV diastolic dysfunction (restrictive filling pattern), severely elevated filling pressures. Dilated right ventricle with a moderately diminished ejection fraction. Moderate biatrial enlargement Moderate-severe mitral valve regurgitation. Minimally thickened aortic valve. Mild tricuspid valve regurgitation. Estimated pulmonary artery peak systolic pressure 40 mmHg. Moderate pulmonary valve regurgitation. There is no pericardial effusion. There are no intracardiac masses. Compared to the study from 08/13/2023, there is significant drop in the LV ejection fraction from 45% to 25% Cardiac catheterization on 07/27/2022 * The left main is a medium caliber vessel with no significant stenotic lesions. Minimal intimal irregularities were noted in the vessel. * The left anterior descending artery is a medium caliber vessel which he was found to have * moderate diffuse disease proximally. Right after the first septal superintendent storage area ,the artery appears to be totally occluded. The first septal superintendent storage area is a small caliber vessel which he was found to have a high-grade lesion proximally.. * The left circumflex artery is a medium caliber vessel which appears to give off a high obtuse marginal branch. The ostium of this vessel was found to have around 50% stenosis. The mid and distal circumflex artery was found to have mild to moderate diffuse disease. The second obtuse marginal artery was found to have severe diffuse disease. This is a small caliber vessel. * The right coronary artery is a medium caliber dominant vessel which wasfound to have severe diffuse disease in the mid and distal segment. Very artery appears to be subtotally ccluded and couple of places. * The rest of his risk to PDA branch was found to be widely patent. The posterior descending artery was found to have moderate diffuse disease in the proximal mid segment. * The saphenous venous grafts to the diagonal and to the obtuse marginal arteries were found to be totally occluded proximally at the anastomotic sites. Patent venous graft to the PDA * The CONROY to the LAD also was found to be widely patent. The distal LAD was found to be a relatively small caliber vessel with diffuse disease. A&P Assessment and plan (1) Acute on chronic systolic heart failure: Etiology is not clear. Patient apparently has significant drop in the LV ejection fraction. This could be the major contributing factor. Progressive worsening of LV systolic function/negative remodeling is a major contributing factor. Possibility of coronary ischemia causing this cannot be excluded. But the patient has no significant symptoms pertaining to that. He is currently on Bumex and metolazone. May be continued for the time being. Need to be monitoring the urine output closely. (2) Atherosclerosis of coronary artery of [place] heart without angina pectoris: Patient had the last coronary angiogram in 2021. We may consider doing a Myocardial perfusion imaging first. Based on the results, further recommendations will be made. In the meanwhile, he may continue on the current medications. No evidence of any myocardial injury so far. EKG changes are nonspecific. Qualifiers: Coronary Disease-Associated Artery/Lesion type: [place] artery Qualified Code(s): I25.10 - Atherosclerotic heart disease of [place] coronary artery without angina pectoris (3) Hyperlipidemia: May continue on the current management. Qualifiers: Hyperlipidemia type: mixed hyperlipidemia Qualified Code(s): E78.2 - Mixed hyperlipidemia (4) Hypotension: Patient was on the vasopressors. Currently he is off. May continue on the current treatment. 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 I may consider starting him on hydralazine, if the blood pressure remains stable. Qualifiers: Acute renal failure type: with other specified pathological lesion Chronic kidney disease stage: stage 2 (mild) Qualified Code(s): N17.8 - Other acute kidney failure; N18.2 - Chronic kidney disease, stage 2 (mild) Plan The other problems are Peripheral arterial disease COPD History of pancreatitis/pancreatic cyst Once the heart failure is properly treated, we may consider doing a Myocardial perfusion imaging to evaluate for any significant coronary ischemia. The course of the worsening kidney function, will try to avoid a coronary angiogram unless there is a strong indication. As of now he has no chest pain. Based on the clinical progress, further recommendations will be made. Thank for the opportunity to evaluate this patient and make these recommendations Coding Level of Care Code 26815 Diagnoses Acute on chronic systolic heart failure I50.23 Atherosclerosis of [place] coronary artery of [place] heart without angina pectoris I25.10 Coronary Disease-Associated Artery/Lesion type: [place] artery Mixed hyperlipidemia E78.2 Hyperlipidemia type: mixed hyperlipidemia Other specified hypotension I95.89 Hypotension type: other hypotension type Type 2 diabetes mellitus without complication, without long-term current use of insulin E11.9 Diabetes mellitus type: type 2 Diabetes mellitus mcc insulin use: without long haul truck driver use Diabetes mellitus complication status: without complication Acute renal failure with other specified pathological kidney lesion superimposed on stage 2 chronic kidney disease N17.8; N18.2 Acute renal failure type: with other specified pathological lesion Chronic kidney disease stage: stage 2 (mild) Time Spent (min) 65
[2024-06-14] MEDS: budesonide 0.5 mg/2 mL Neb INHALATION ×2 (09:21→20:55)
[2024-06-14 11:14] LABS: Glucose Point of Care 292 mg/dL (70-110)
--- NOTE | 2024-06-14 12:58 | PC.SOCIAL ---
IMM Update pg 2 of IMM updated and reviewed w/ patient. Copy provided and copy dated, initialed and placed in chart.
--- NOTE | 2024-06-14 13:01 | PC.SOCIAL ---
IMM Update pg 2 of IMM updated and reviewed w/ patient. Copy provided and copy dated, initialed and placed in chart.
--- NOTE | 2024-06-14 14:29 | P.PN_ITS ---
Subjective 2 Subjective: No acute distress overnight. Patient sitting comfortably in chair today. States feeling a lot better than when he had come in. Currently on 3 L saturating more than 98%. Denies any chest pain. 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 Denies any nausea, vomiting, headache. States he is lactose intolerant. Levophed was discontinued late last night. Vitals/I&O/Wt Last Vital Signs Temp 98.0 F 06/14/24 04:00 Pulse 104 H 06/14/24 13:43 Resp 16 06/14/24 13:43 BP 121/69 06/14/24 12:00 Pulse Ox 100 06/14/24 13:43 O2 Del Method Nasal Cannula 06/14/24 13:43 O2 Flow Rate 3 06/14/24 13:43 06/13/24 06/14/24 06/14/24 22:59 06:59 14:59 Intake Total 480 / 960 648 / 1608 420 / 420 Output Total 800 / 1150 2700 / 3850 1600 / 1600 Balance -320 / -190 -2052 / -2242 -1180 / -1180 Weight last 48 hrs Weight 99.535 kg Weight 104.5 kg Weight 103 kg Weight 101 kg Physical Exam 2 Narrative: General: No acute distress, AO x3 pleasant, chronically sick appearing, HEENT: PERRLA, pupils bilaterally equal and reactive Chest: Bilateral bronchial breath sounds all over lung [place] with occasional rhonchi, fine crackles bilateral lower zone CVS: S1-S2 regular, soft pansystolic murmur at apex rating to anterior axillary line, no tachycardia, no gallops, no rubs Abdomen: Soft, distended, nontender no organomegaly, bowel sounds present Neuro: No focal deficits, no facial deformity, AO x3, power 5/5 in all limbs Urinary Catheter Management: Blair: Cath Placed During This Visit: yes Reason for Continuing Indwelling Catheter: Accurate Measurement of Urinary Output in Critically Ill Patients Urinary Catheter Date of Insertion: 06/12/24 Urinary Catheter Time of Insertion: 14:01 Data 06/14/24 03:57 06/14/24 03:57 Micro: Microbiology 06/12/24 17:00 Urine Culture - Preliminary Urine,Clean Catch 06/12/24 14:32 Blood Culture - Preliminary Blood NEGATIVE TO DATE 06/12/24 14:28 Blood Culture - Preliminary Blood NEGATIVE TO DATE 06/12/24 17:45 Bacterial Antigens - Final Urine Kidney A&P Assessment and plan (1) Acute on chronic renal failure: Baseline creatinine 1.7. Currently showing slight improvement with creatinine down to 2.4. Most likely in setting of congestive heart failure along with soft blood pressures at home. High concerns for cardiorenal syndrome. Blair catheterization. Strict input output charting. Cheetah examination shows patient being not fluid responsive on 06/12. Appreciate urine lites with urine sodium of 52 and creatinine of 32. Fena?3.1 consistent with intrinsic pathology. CT abdomen pelvis negative for obstructive nephropathy. Will plan to keep mean arterial pressure around 65. IV Bumex Q8 hourly 2 mg. Continue with metolazone 5 mg oral daily. If not responding will start on Bumex drip. If kidney functions are not improving will plan to consult nephrology for further recommendations. Qualifiers: Acute renal failure type: with other specified pathological lesion C hronic kidney disease stage: stage 2 (mild) Qualified Code(s): N17.8 - Other acute kidney failure; N18.2 - Chronic kidney disease, stage 2 (mild) (2) Cardiogenic shock: With episodes of hypotension at home as well. Maintain mean artery pressure 65. Started on Levophed and wean accordingly. (3) Chronic systolic (congestive) heart failure: New echocardiogram shows worsening of EF down to 25% Currently symptoms of dyspnea on exertion along with orthopnea with high concerns of exacerbation of congestive heart failure. Strict input and output charting, daily weights. Bumex as above. proBNP elevated. Troponin cycled not significant. Will consult cardiology for further recommendations given worsening of EF. Last angiogram from July 2022 showed patent [place] to LAD and venous graft to PDA with total occlusion of venous graft to obtuse marginal and diagonal arteries with severely elevated diastolic pressures for which medical treatment was opted. (4) Ischemic cardiomyopathy: Echocardiogram done shows an EF of 25% with grade 3 diastolic dysfunction, dilated RA with moderate diminished ejection fraction, moderate biatrial enlargement, moderate to severe mitral valve regurgitation, mild TR with PASP of 40 mmHg with moderate pulmonary valve regurgitation. Patient has worsening of EF. Denies any current chest pain. Troponin cycle negative. For now continue with home dose of aspirin, Plavix. Appreciate lipid panel. A1c of 5.9. (5) Hypotension: Goal blood pressure less than 140/90 mmHg with mean over 65. Blood pressures have been running low even at home. For now hold off on home isosorbide, hydralazine, valsartan. Continue with metoprolol 50 mg twice daily to avoid tachycardia. Monitor blood pressures. If needed will start Levophed and discontinue metoprolol. 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 (7) Cardiorenal syndrome: (8) Hypertension: Qualifiers: Hypertension type: essential hypertension Qualified Code(s): I10 - Essential (primary) hypertension Plan Type 2 diabetes mellitus: Episodes of hypoglycemia recently at home. Hold off on Lantus. Continue with insulin at low-dose protocol. Will restart Lantus as per 24-hour requirements. A1c of 5.9. Plan for the day: Maintain mean artery pressure between 65-70. Restart Levophed drip as needed. Continue with aggressive IV diuresis with Bumex 2 mg every 8 hourly and metolazone. Replace potassium accordingly. Repeat BMP in afternoon. Strict input output charting. 5 L of urine output in last 24 hours with patient around 3.4 L negative in last 24 hours. Continue to monitor BMP daily. Appreciate cardiology recommendations with possibility of Lexiscan stress test once patient is more euvolemic. Monitor blood glucose. Has required up to 20 units of Humalog in last 24 hours. Start on Lantus 5 units nightly. Switch diet to renal diabetic nondialysis lactose intolerant CODE STATUS: Discussed detail with the patient. with the DPOA. Full code Renal nondialysis diabetic diet Protonix for PUD prophylaxis Heparin for DVT prophylaxis Attestations 2 Medical Necessity Statement*: Requires further hospitalization for management of cardiogenic shock in a patient with ischemic cardiomyopathy, WHIT and CKD, congestive heart failure Diagnoses Acute renal failure with other specified pathological kidney lesion superimposed on stage 2 chronic kidney disease N17.8; N18.2 Acute renal failure type: with other specified pathological lesion Chronic kidney disease stage: stage 2 (mild) Cardiogenic shock R57.0 Chronic systolic (congestive) heart failure I50.22 Ischemic cardiomyopathy I25.5 Other specified hypotension I95.89 Hypotension type: other hypotension type 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
[2024-06-14] MEDS: pantoprazole 40 mg SDV IVP (15:20)
[2024-06-14 16:25] LABS: Calcium 8.6 mg/dL (8.5-10.5); Carbon Dioxide 27 mmol/L (22-29); Chloride 93 mmol/L (98-107); Creatinine Clr Calc Pharmacy 38.2248; Glucose 204 mg/dL (65-115); Osmolality Calculated 307 mOsm/kg (285-295); Sodium 133 mmol/L (136-145)
[2024-06-14 16:32] LABS: Anion Gap 16.5 (5-19); Potassium 3.5 mmol/L (3.5-5.1)
[2024-06-14 16:33] LABS: Blood Urea Nitrogen 82 mg/dL (8-23)
[2024-06-14 17:35] LABS: Glucose Point of Care 159 mg/dL (70-110)
[2024-06-14 20:44] LABS: Glucose Point of Care 258 mg/dL (70-110)
[2024-06-14] MEDS: clopidogrel 75 mg Tablet PO (20:46)
[2024-06-14] MEDS: insulin glargine 100 units/1 mL 5 UNIT SUBCUT (20:48)
[2024-06-15] VITALS (25 sets, daily range): BP systolic 93–151; BP diastolic 55–94; PULSE 91–107; RESP 15–33; TEMP 36.5–36.7; O2SAT 93–100; BMI 30.4
[2024-06-15] MEDS: ipratropium-albuterol 3 mL Neb INHALATION ×4 (03:00→21:12)
[2024-06-15] MEDS: heparin 5,000 unit/mL INJ 1 mL 5000 UNIT SUBCUT ×2 (03:01→16:21)
[2024-06-15] MEDS: bumetanide 0.25 mg/mL SDV 10 mL 2 MG IVP ×3 (04:18→20:29)
[2024-06-15 04:27] LABS: Basophils # 0.1 10^3/uL (0.0-0.1); Basophils % 0.8 %; Eosinophils # 0.8 10^3/uL (0.0-0.8); Eosinophils % 7.9 %; Hematocrit 30.8 % (37-53); Lymphocytes # 0.6 10^3/uL (0.8-4.8); Lymphocytes % 6.7 %; Mean Corpuscular HGB Conc 30.5 g/dL (30-55); Mean Corpuscular Hemoglobin 24.7 pg (27-33); Mean Corpuscular Volume 81.1 fl (82-101); Mean Platelet Volume 9.1 fL (7.4-10.4); Monocytes # 0.9 10^3/uL (0.2-0.9); Monocytes % 9.5 %; Neutrophils # 7.16 10^3/uL (1.8-7.7); Neutrophils % 74.7 %; Nucleated Red Blood Cells % 0 %; Platelet Count 222 10^3/cmm (157-399); Red Cell Distribution Width 20.7 % (12.1-15.1); White Blood Count 9.59 10^3/uL (3.29-11.43)
[2024-06-15 04:47] LABS: Alanine Aminotransferase 13 U/L (0-41); Albumin Level 3.5 g/dL (3.5-5.2); Alkaline Phosphatase 126 U/L (40-130); Anion Gap 16.9 (5-19); Aspartate Amino Transferase 19 U/L (0-40); Calcium 8.4 mg/dL (8.5-10.5); Carbon Dioxide 28 mmol/L (22-29); Chloride 93 mmol/L (98-107); Creatinine Clr Calc Pharmacy 40.0987; Globulin 3.3 g/dL (1.3-4.6); Glucose 122 mg/dL (65-115); Osmolality Calculated 306 mOsm/kg (285-295); Sodium 135 mmol/L (136-145); Total Bilirubin 0.6 mg/dL (0.15-1.2); Total Protein 6.8 g/dL (6.6-8.7)
[2024-06-15 04:59] LABS: Blood Urea Nitrogen 81 mg/dL (8-23); Potassium 2.9 mmol/L (3.5-5.1)
--- NOTE | 2024-06-15 05:02 | PC.NURSE ---
Potassium replacement: Patient's potassium was 2.9, Dr. Smith was contacted and gave telephone orders for 40meq KCl PO ONCE.
[2024-06-15] MEDS: potassium chloride ER 20 mEq Tablet 40 MEQ PO (05:30)
[2024-06-15] MEDS: aspirin 81 mg EC Tablet PO (05:30)
[2024-06-15 07:56] LABS: Glucose Point of Care 138 mg/dL (70-110)
[2024-06-15] MEDS: metOLazone 5 MG Tablet PO (08:11)
[2024-06-15] MEDS: budesonide 0.5 mg/2 mL Neb INHALATION ×2 (08:15→21:12)
[2024-06-15] MEDS: potassium chloride ER 20 mEq Tablet 80 MEQ PO (09:53)
[2024-06-15] MEDS: metoprolol tartrate 25 mg Tablet 12.5 MG PO ×2 (09:53→20:29)
[2024-06-15 11:20] LABS: Glucose Point of Care 284 mg/dL (70-110)
[2024-06-15] MEDS: insulin lispro 100 unit/1 mL SUBCUT ×3 (11:23→20:50)
[2024-06-15] MEDS: bisacodyl 5 mg Tablet 10 MG PO (11:23)
--- NOTE | 2024-06-15 11:48 | P.PN_ITS ---
Subjective 2 Subjective: Shortness of breath is improving. Denies any chest pain. Complaining of some leg cramps. No fever or chills. Had some nosebleed today morning and has resolved now. Medications: Medication Review Details: Current Medications Acetaminophen (Acetaminophen 325 Mg Tablet) 650 mg PO Q6H PRN PRN Reason: Mild/Mod Pain Or Temp >/= 101 Albuterol/Ipratropium (Ipratropium-Albuterol 3 Ml Neb) 3 ml INHALATION Q6H.RESP NIDHI Last Admin: 06/15/24 08:15 Dose: 3 ml Ascorbic Acid (Ascorbic Acid 500 Mg Tablet) 250 mg PO QAM NIDHI Aspirin (Aspirin 81 Mg Ec Tablet) 81 mg PO QAM [facility] Last Admin: 06/15/24 05:30 Dose: 81 mg Bisacodyl (Bisacodyl 5 Mg Tablet) 10 mg PO DAILY [facility]; Protocol Last Admin: 06/15/24 11:23 Dose: 10 mg Budesonide (Budesonide 0.5 Mg/2 Ml Neb) 0.5 mg INHALATION BID.RESPIRATORY [facility] Last Admin: 06/15/24 08:15 Dose: 0.5 mg Bumetanide (Bumetanide 0.25 Mg/Ml Sdv 10 Ml) 2 mg IVP Q8H [facility] Last Admin: 06/15/24 11:24 Dose: 2 mg Clopidogrel Bisulfate (Clopidogrel 75 Mg Tablet) 75 mg PO BEDTIME [facility] Last Admin: 06/14/24 20:46 Dose: 75 mg Cyanocobalamin (Cyanocobalamin 1,000 Mcg Tablet) 1,000 mcg PO QAM [facility] Diclofenac Sodium (Diclofenac 1% Topical Gel 100 Gm) 4 applic TOPICAL QID PRN PRN Reason: Pain Glucagon (Glucagon 1 Mg/Ml Kit 1 Ml) 1 mg IM ONCE PRN; Protocol PRN Reason: Adult Acute Hypoglycemia Nursing Prot. Heparin Sodium (Porcine) (Heparin 5,000 Unit/Ml Inj 1 Ml) 5,000 unit SUBCUT Q12H [facility] Last Admin: 06/15/24 03:01 Dose: 5,000 unit Dextrose (D5w) 500 mls @ 0 mls/hr IV ONCE PRN; Protocol PRN Reason: Adult Acute Hypoglycemia Prot Dextrose (D10w) 125 mls @ 750 mls/hr IV PRN PRN; Protocol PRN Reason: Adult Acute Hypoglycemia Nursing Protocol Dextrose (D10w) 250 mls @ 1,000 mls/hr IV PRN PRN; Protocol PRN Reason: Adult Acute Hypoglycemia Nursing Protocol Insulin Glargine (Insulin Glargine 100 Units/1 Ml) 5 unit SUBCUT BEDTIME [facility] Last Admin: 06/14/24 20:48 Dose: 5 unit Insulin Human Lispro (Insulin Lispro 100 Unit/1 Ml) 0 unit SUBCUT WM&BEDTIME NIDHI; Protocol Last Admin: 06/15/24 11:23 Dose: 8 unit Lactulose (Lactulose Oral Liq 20 Gm/30 Ml Udc) 10 gm PO DAILY PRN; Protocol PRN Reason: Constipation (see protocol) Magnesium Hydroxide (Magnesium Hydroxide 30 Ml Udc) 30 ml PO DAILY PRN; Protocol PRN Reason: Constipation (see protocol) Metolazone (Metolazone 5 Mg Tablet) 5 mg PO DAILY [facility] Last Admin: 06/15/24 08:11 Dose: 5 mg Metoprolol Tartrate (Metoprolol Tartrate 25 Mg Tablet) 12.5 mg PO BID@0900,2100 [facility] Last Admin: 06/15/24 09:53 Dose: 12.5 mg Morphine Sulfate (Morphine 4 Mg/Ml Sdv 1 Ml) 2 mg IVP Q4H PRN PRN Reason: SEVERE PAIN Ondansetron HCl (Ondansetron 2 Mg/Ml Sdv 2 Ml) 4 mg IVP Q8H PRN PRN Reason: vomiting, or N/V if npo Pantoprazole Sodium (Pantoprazole 40 Mg Sdv) 40 mg IVP Q24H [facility] Last Admin: 06/14/24 15:20 Dose: 40 mg Vitals/I&O/Wt Last Vital Signs Temp 97.9 F 06/15/24 03:00 Pulse 100 06/15/24 08:23 Resp 18 06/15/24 08:15 BP 139/69 06/15/24 07:00 Pulse Ox 95 06/15/24 08:15 O2 Del Method Nasal Cannula 06/15/24 08:15 O2 Flow Rate 3 06/15/24 08:15 06/14/24 06/15/24 06/15/24 22:59 06:59 14:59 Intake Total 400 / 820 300 / 1120 250 / 250 Output Total 2050 / 3650 1175 / 4825 1200 / 1200 Balance -1650 / -2830 -875 / -3705 -950 / -950 Weight last 48 hrs Weight 218 lb Weight 218 lb 6 oz Weight 219 lb Weight 219 lb 7 oz Physical Exam 2 Narrative: GENERAL: The patient is alert and oriented times three. Not in any acute distress. HEENT: No significant pallor, icterus or lymphadenopathy.Oral cavity: There are no mucous membrane lesions. NECK: Trachea appears to be central. No masses noted. No JVD or thyromegaly appreciated. RESPIRATORY: Chest is symmetrical. No intercostals muscle retraction or any accessory muscle activation. There is no chest wall tenderness. Breath sounds are heard bilaterally. No rales or rhonchi heard. No evidence of any consolidation. BREASTS: Deferred. HEART: The heart sounds are normal. No S3 or S4. Short systolic murmur in the lower sternal border. No diastolic murmurs.. No pericardial rub ABDOMEN: No vessel pulsations or distention. No tenderness. No organomegaly appreciated. Bowel sounds are normally heard. : Deferred. RECTAL: Deferred. LYMPHATIC: No lymphadenopathy noted in the neck. EXTREMITIES: 1-2+ edema both extremities. MUSCULOSKELETAL: No acute joint deformities or swelling SKIN: There are no significant rashes or ecchymosis NEUROPSYCHIATRIC: The patient is alert and oriented x3. Appears to be in a good mood. No tremors or rigidity noted. Urinary Catheter Management: Blair: Cath Placed During This Visit: yes Reason for Continuing Indwelling Catheter: Accurate Measurement of Urinary Output in Critically Ill Patients Urinary Catheter Date of Insertion: 06/12/24 Urinary Catheter Time of Insertion: 14:01 Data 06/15/24 04:17 06/15/24 04:17 Other Labs: Laboratory Last Values WBC 9.59 10^3/uL (3.29-11.43) 06/15/24 04:17 RBC 3.80 10^6/uL (3.85-5.65) L 06/15/24 04:17 Hgb 9.40 g/dL (11.27-16.99) L 06/15/24 04:17 Hct 30.8 % (37-53) L 06/15/24 04:17 MCV 81.1 fl (82-101) L 06/15/24 04:17 MCH 24.7 pg (27-33) L 06/15/24 04:17 MCHC 30.5 g/dL (30-55) 06/15/24 04:17 RDW 20.7 % (12.1-15.1) H 06/15/24 04:17 Plt Count 222 10^3/cmm (157-399) 06/15/24 04:17 MPV 9.1 fL (7.4-10.4) 06/15/24 04:17 Neut % (Auto) 74.7 % 06/15/24 04:17 Lymph % (Auto) 6.7 % 06/15/24 04:17 [place]calfe % (Auto) 9.5 % 06/15/24 04:17 Eos % (Auto) 7.9 % 06/15/24 04:17 Baso % (Auto) 0.8 % 06/15/24 04:17 Neut # (Auto) 7.16 10^3/uL (1.8-7.7) 06/15/24 04:17 Lymph # (Auto) 0.6 10^3/uL (0.8-4.8) L 06/15/24 04:17 [place] # (Auto) 0.9 10^3/uL (0.2-0.9) 06/15/24 04:17 Eos # (Auto) 0.8 10^3/uL (0.0-0.8) 06/15/24 04:17 Baso # (Auto) 0.1 10^3/uL (0.0-0.1) 06/15/24 04:17 Nucleated RBC % (auto) 0 % 06/15/24 04:17 Nucleated RBCs # 0.0 /100WBC 06/15/24 04:17 D-Dimer 2.26 ug/mLFEU (0-0.59) H 06/12/24 10:49 Sodium 135 mmol/L (136-145) L 06/15/24 04:17 Potassium 2.9 mmol/L (3.5-5.1) L 06/15/24 04:17 Chloride 93 mmol/L (98-107) L 06/15/24 04:17 Carbon Dioxide 28 mmol/L (22-29) 06/15/24 04:17 Anion Gap 16.9 (5-19) 06/15/24 04:17 BUN 81 mg/dL (8-23) H 06/15/24 04:17 Creatinine 2.0 mg/dL (0.7-1.2) H 06/15/24 04:17 GFR Calculation Not Reportable 06/15/24 04:17 Glucose 122 mg/dL (65-115) H 06/15/24 04:17 POC Glucose 284 mg/dL (70-110) H 06/15/24 11:17 Estimat Average Glucose 123 06/13/24 04:15 Hemoglobin A1c 5.9 % (4.0-6.0) 06/13/24 04:15 Calculated Osmolality 306 mOsm/kg (285-295) H 06/15/24 04:17 Lactic Acid 1.9 mmol/L (0.5-2.2) 06/12/24 10:49 Calcium 8.4 mg/dL (8.5-10.5) L 06/15/24 04:17 Phosphorus 5.0 mg/dL (2.5-4.5) H 06/13/24 04:15 Magnesium 2.8 mg/dL (1.7-2.3) H 06/13/24 04:15 Iron 35 ug/dL (59-158) L 06/12/24 10:49 TIBC 288 mcg/dl 06/12/24 10:49 % Saturation 12.1 % (20-50) L 06/12/24 10:49 Unsat Iron Binding 253 ug/dL (112-347) 06/12/24 10:49 Total Bilirubin 0.6 mg/dL (0.15-1.2) 06/15/24 04:17 AST 19 U/L (0-40) 06/15/24 04:17 ALT 13 U/L (0-41) 06/15/24 04:17 Alkaline Phosphatase 126 U/L (40-130) 06/15/24 04:17 Troponin T Baseline 68 ng/L (0-15) H 06/12/24 10:49 Troponin T Hi Sens 6Hr 55.98 ng/L (0-15) H 06/12/24 17:46 Troponin T Hi Sens 6Hr Delta -12.02 ng/L (0-12) L 06/12/24 17:46 NT-Pro-B Natriuret Pep 45939 pg/mL (0-125) H 06/12/24 10:49 Total Protein 6.8 g/dL (6.6-8.7) 06/15/24 04:17 Albumin 3.5 g/dL (3.5-5.2) 06/15/24 04:17 Globulin 3.3 g/dL (1.3-4.6) 06/15/24 04:17 Triglycerides 46 mg/dL (0-150) 06/13/24 04:15 Cholesterol 88 mg/dL (0-200) 06/13/24 04:15 LDL Cholesterol, Calc 42 mg/dL (50-129) L 06/13/24 04:15 HDL Cholesterol 37 mg/dL (60-100) L 06/13/24 04:15 LDL/HDL Ratio 1.14 RATIO (0.00-3.22) 06/13/24 04:15 Cholesterol/HDL Ratio 2.38 mg/dL (1.0-5.00) 06/13/24 04:15 Vitamin B12 1965 pg/mL (232-1245) H 06/12/24 10:49 Folate 9.5 ng/mL (4.5-32.2) 06/13/24 04:15 Procalcitonin 0.36 ng/mL (0-0.5) 06/13/24 04:15 TSH 2.85 uIU/mL (0.27-4.20) 06/12/24 10:49 Random Cortisol 12.39 ug/dL (2.47-19.5) 06/14/24 03:57 Urine Color Yellow (Yellow) 06/12/24 17:00 Urine Appearance Slightly cloudy (CLEAR) 06/12/24 17:00 Urine pH 5 (5-7) 06/12/24 17:00 Ur Specific Fisher 1.010 (1.005-1.030) 06/12/24 17:00 Urine Protein 1+ (Negative) H 06/12/24 17:00 Urine Glucose (UA) Norm (Normal) 06/12/24 17:00 Urine Ketones Negative (Negative) 06/12/24 17:00 Urine Blood 3+ (Negative) H 06/12/24 17:00 Urine Nitrate Negative (Negative) 06/12/24 17:00 Urine Bilirubin Neg (Negative) 06/12/24 17:00 Urine Urobilinogen Norm mg/dL (Negative) 06/12/24 17:00 Ur Leukocyte Esterase 1+ (Negative) H 06/12/24 17:00 Urine RBC >100 /hpf (0-2) H 06/12/24 17:00 Urine WBC 0-4 /hpf (0-5) H 06/12/24 17:00 Ur Squamous Epith Cells None /hpf (0-5) 06/12/24 17:00 Amorphous Sediment Not Reportable 06/12/24 17:00 Urine Bacteria Trace /hpf (NONE) 06/12/24 17:00 Hyaline Casts 0-4 /lpf H 06/12/24 17:00 Ur Random Sodium 52 mmol/L 06/12/24 17:00 Ur Random Potassium 43 mmol/L 06/12/24 17:00 Ur Random Chloride 73 mmol/L 06/12/24 17:00 Urine Creatinine 32 mg/dL (39-259) L 06/12/24 17:00 Nasal MRSA (PCR) Not detected ` (Negative) 06/12/24 17:43 Urine Opiates Screen Negative ng/mL (Negative) 06/12/24 17:00 Ur Barbiturates Screen Negative ng/mL (Negative) 06/12/24 17:00 Ur Phencyclidine Scrn Negative ng/mL (Negative) 06/12/24 17:00 Ur Amphetamines Screen Negative ng/mL (Negative) 06/12/24 17:00 U Benzodiazepines Scrn Negative ng/mL (Negative) 06/12/24 17:00 Urine Cocaine Screen Negative ng/mL (Negative) 06/12/24 17:00 U Marijuana (THC) Screen Negative ng/mL (Negative) 06/12/24 17:00 MRSA (PCR) Cancelled 06/12/24 Unknown Micro: Microbiology 06/12/24 17:00 Urine Culture - Final Urine,Clean Catch A&P Assessment and plan (1) Acute on chronic systolic heart failure: Etiology is not clear. Patient apparently has significant drop in the LV ejection fraction. This could be the major contributing factor. Progressive worsening of LV systolic function/negative remodeling is a major contributing factor. Possibility of coronary ischemia causing this cannot be excluded. But the patient has no significant symptoms pertaining to that. He is currently on Bumex and metolazone. May be continued for the time being. Need to be monitoring the urine output closely. May continue on the current medication for the time being. (2) Atherosclerosis of coronary artery of [place] heart without angina pectoris: Patient had the last coronary angiogram in 2021. We may consider doing a Myocardial perfusion imaging first. Based on the results, further recommendations will be made. In the meanwhile, he may continue on the current medications. No evidence of any myocardial injury so far. EKG changes are nonspecific. Qualifiers: Coronary Disease-Associated Artery/Lesion type: [place] artery Qualified Code(s): I25.10 - Atherosclerotic heart disease of [place] coronary artery without angina pectoris (3) Hyperlipidemia: May continue on the current management. Qualifiers: Hyperlipidemia type: mixed hyperlipidemia Qualified Code(s): E78.2 - Mixed hyperlipidemia (4) Hypotension: Patient was on the vasopressors. Currently he is off all the vasopressors. May continue on the current treatment. Qualifiers: Hypotension type: other hypotension type Qualified Code(s): I95.89 - Other hypotension (5) Diabetes: Aggressive management of the diabetes would be appropriate Qualifiers: Diabetes mellitus complication status: without complication Diabetes mellitus financial supervisor insulin use: without financial supervisor use Diabetes mellitus type: t ype 2 Qualified Code(s): E11.9 - Type 2 diabetes mellitus without complications (6) Acute on chronic renal failure: The BUN/creatinine seems to be slowly coming down. The nephrology input would be appropriate. I may consider starting him on hydralazine, if the blood pressure remains stable. Qualifiers: Acute renal failure type: with other specified pathological lesion C hronic kidney disease stage: stage 2 (mild) Qualified Code(s): N17.8 - Other acute kidney failure; N18.2 - Chronic kidney disease, stage 2 (mild) Plan The other problems are Peripheral arterial disease COPD History of pancreatitis/pancreatic cyst Once the heart failure is properly treated, we may consider doing a Myocardial perfusion imaging to evaluate for any significant coronary ischemia. I may send try him on a low-dose of hydralazine 10 mg p.o. 3 times daily to improve the cardiac output. Possible Myocardial perfusion imaging on Monday. \Based on the clinical progress, further recommendations will be made Attestations 2 Medical Necessity Statement*: Patient requires continued hospital stay for close monitoring and further management Coding Level of Care Code 58870 Diagnoses Acute on chronic systolic heart failure I50.23 Atherosclerosis of [place] coronary artery of [place] heart without angina pectoris I25.10 Coronary Disease-Associated Artery/Lesion type: [place] artery Mixed hyperlipidemia E78.2 Hyperlipidemia type: mixed hyperlipidemia Other specified hypotension I95.89 Hypotension type: other hypotension type Type 2 diabetes mellitus without complication, without long-term current use of insulin E11.9 Diabetes mellitus complication status: without complication Diabetes mellitus financial supervisor insulin use: without half-way use Diabetes mellitus type: type 2 Acute renal failure with other specified pathological kidney lesion superimposed on stage 2 chronic kidney disease N17.8; N18.2 Acute renal failure type: with other specified pathological lesion Chronic kidney disease stage: stage 2 (mild)
--- NOTE | 2024-06-15 14:35 | P.PN_ITS ---
Subjective 2 Subjective: No acute events overnight. Patient has remained hemodynamic stable and afebrile. Today morning seen sitting up in chair. Denies any nausea, vomiting, headache. Complaining of cramping in his lower limbs. Otherwise has remained hemodynamically stable and afebrile. Vitals/I&O/Wt Last Vital Signs Temp 97.9 F 06/15/24 09:00 Pulse 97 06/15/24 14:09 Resp 22 H 06/15/24 14:00 BP 123/63 06/15/24 12:00 Pulse Ox 96 06/15/24 14:14 O2 Del Method Nasal Cannula 06/15/24 14:14 O2 Flow Rate 3 06/15/24 14:14 06/14/24 06/15/24 06/15/24 22:59 06:59 14:59 Intake Total 400 / 820 300 / 1120 250 / 250 Output Total 2050 / 3650 1175 / 4825 1200 / 1200 Balance -1650 / -2830 -875 / -3705 -950 / -950 Weight last 48 hrs Weight 98.883 kg Weight 99.053 kg Weight 99.337 kg Weight 99.535 kg Physical Exam 2 Narrative: General: No acute distress, AO x3 pleasant, chronically sick appearing, HEENT: PERRLA, pupils bilaterally equal and reactive Chest: Bilateral bronchial breath sounds all over lung mueller with occasional rhonchi, fine crackles bilateral lower zone CVS: S1-S2 regular, soft pansystolic murmur at apex rating to anterior axillary line, no tachycardia, no gallops, no rubs Abdomen: Soft, distended, nontender no organomegaly, bowel sounds present Neuro: No focal deficits, no facial deformity, AO x3, power 5/5 in all limbs Urinary Catheter Management: Blair: Cath Placed During This Visit: yes Reason for Continuing Indwelling Catheter: Accurate Measurement of Urinary Output in Critically Ill Patients Urinary Catheter Date of Insertion: 06/12/24 Urinary Catheter Time of Insertion: 14:01 Data 06/15/24 04:17 06/15/24 04:17 Micro: Microbiology 06/12/24 17:00 Urine Culture - Final Urine,Clean Catch A&P Assessment and plan (1) Acute on chronic renal failure: Baseline creatinine 1.7. Currently showing slight improvement with creatinine down to 2.4. Most likely in setting of congestive heart failure along with soft blood pressures at home. High concerns for cardiorenal syndrome. Blair catheterization. Strict input output charting. Cheetah examination shows patient being not fluid responsive on 06/12. Appreciate urine lites with urine sodium of 52 and creatinine of 32. Fena?3.1 consistent with intrinsic pathology. CT abdomen pelvis negative for obstructive nephropathy. Will plan to keep mean arterial pressure around 65. IV Bumex Q8 hourly 2 mg. Continue with metolazone 5 mg oral daily. If not responding will start on Bumex drip. If kidney functions are not improving will plan to consult nephrology for further recommendations. Qualifiers: Acute renal failure type: with other specified pathological lesion C hronic kidney disease stage: stage 2 (mild) Qualified Code(s): N17.8 - Other acute kidney failure; N18.2 - Chronic kidney disease, stage 2 (mild) (2) Cardiogenic shock: With episodes of hypotension at home as well. Maintain mean artery pressure 65. Started on Levophed and wean accordingly. (3) Chronic systolic (congestive) heart failure: New echocardiogram shows worsening of EF down to 25% Currently symptoms of dyspnea on exertion along with orthopnea with high concerns of exacerbation of congestive heart failure. Strict input and output charting, daily weights. Bumex as above. proBNP elevated. Troponin cycled not significant. Will consult cardiology for further recommendations given worsening of EF. Last angiogram from July 2022 showed patent [place] to LAD and venous graft to PDA with total occlusion of venous graft to obtuse marginal and diagonal arteries with severely elevated diastolic pressures for which medical treatment was opted. (4) Ischemic cardiomyopathy: Echocardiogram done shows an EF of 25% with grade 3 diastolic dysfunction, dilated RA with moderate diminished ejection fraction, moderate biatrial enlargement, moderate to severe mitral valve regurgitation, mild TR with PASP of 40 mmHg with moderate pulmonary valve regurgitation. Patient has worsening of EF. Denies any current chest pain. Troponin cycle negative. For now continue with home dose of aspirin, Plavix. Appreciate lipid panel. A1c of 5.9. (5) Hypotension: Goal blood pressure less than 140/90 mmHg with mean over 65. Blood pressures have been running low even at home. 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 (7) Cardiorenal syndrome: (8) Hypertension: Qualifiers: Hypertension type: essential hypertension Qualified Code(s): I10 - Essential (primary) hypertension Plan Type 2 diabetes mellitus: Episodes of hypoglycemia recently at home. Hold off on Lantus. Continue with insulin at low-dose protocol. Will restart Lantus as per 24-hour requirements. A1c of 5.9. Plan for the day: Blood pressures have remained stable. Mean artery pressure have maintained over 65. No Levophed needed. Patient overall 6.5 L negative. BMP improving. Creatinine down to 2. Baseline around 1.7. Continue with IV Bumex every 8 hourly and oral metolazone 5 mg daily. Repeat BMP in afternoon. Replace potassium with 80 mg oral. Patient already received 40 mEq earlier in the morning. Continue with fluid restriction up to 1500 cc. Discussed in detail with the patient regarding fluid restriction he is agreeable. Blood sugar stable. Continue with Lantus 5 units nightly and sliding scale at low-dose protocol. Start oral metoprolol 12.5 mg twice daily. Monitor vitals. Transfer to CSU. CODE STATUS: Discussed detail with the patient. with the DPOA. Full code Renal nondialysis diabetic diet Protonix for PUD prophylaxis Heparin for DVT prophylaxis Attestations 2 Medical Necessity Statement*: Requires further hospitalization for management of ischemic cardiomyopathy, congestive heart failure with EF of 25%, WHIT on CKD Diagnoses Acute renal failure with other specified pathological kidney lesion superimposed on stage 2 chronic kidney disease N17.8; N18.2 Acute renal failure type: with other specified pathological lesion Chronic kidney disease stage: stage 2 (mild) Cardiogenic shock R57.0 Chronic systolic (congestive) heart failure I50.22 Ischemic cardiomyopathy I25.5 Other specified hypotension I95.89 Hypotension type: other hypotension type 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
[2024-06-15 15:19] LABS: Blood Urea Nitrogen 77 mg/dL (8-23); Carbon Dioxide 27 mmol/L (22-29); Chloride 94 mmol/L (98-107); Creatinine Clr Calc Pharmacy 42.1188; Glucose 206 mg/dL (65-115); Osmolality Calculated 311 mOsm/kg (285-295); Sodium 136 mmol/L (136-145)
[2024-06-15 15:28] LABS: Anion Gap 19.4 (5-19); Potassium 4.4 mmol/L (3.5-5.1)
--- NOTE | 2024-06-15 16:08 | PC.NURSE ---
received from icu via w/c into room 105,at 1525.pt oriented to room environment.sr on monitor.denies pain at present.instructed to notify staff for any chest pain,sob,dizziness..or for any concerns at all.pt verb understanding of instructions
[2024-06-15] MEDS: pantoprazole 40 mg SDV IVP (16:21)
[2024-06-15 17:09] LABS: Glucose Point of Care 202 mg/dL (70-110)
[2024-06-15] MEDS: clopidogrel 75 mg Tablet PO (20:29)
[2024-06-15] MEDS: insulin glargine 100 units/1 mL 5 UNIT SUBCUT (20:30)
[2024-06-15 20:45] LABS: Glucose Point of Care 226 mg/dL (70-110)
[2024-06-16] VITALS (15 sets, daily range): BP systolic 101–121; BP diastolic 51–70; PULSE 88–101; RESP 13–26; TEMP 36.5–36.8; O2SAT 90–99
[2024-06-16] MEDS: bumetanide 0.25 mg/mL SDV 10 mL 2 MG IVP ×2 (03:15→10:33)
[2024-06-16] MEDS: ipratropium-albuterol 3 mL Neb INHALATION ×4 (03:16→20:58)
[2024-06-16] MEDS: heparin 5,000 unit/mL INJ 1 mL 5000 UNIT SUBCUT ×2 (03:16→17:12)
[2024-06-16 04:32] LABS: Basophils # 0.1 10^3/uL (0.0-0.1); Basophils % 0.9 %; Eosinophils # 0.6 10^3/uL (0.0-0.8); Eosinophils % 6.4 %; Hematocrit 30.2 % (37-53); Lymphocytes # 0.6 10^3/uL (0.8-4.8); Lymphocytes % 6.2 %; Mean Corpuscular HGB Conc 30.8 g/dL (30-55); Mean Corpuscular Hemoglobin 25.3 pg (27-33); Mean Corpuscular Volume 82.1 fl (82-101); Mean Platelet Volume 9.7 fL (7.4-10.4); Monocytes # 0.9 10^3/uL (0.2-0.9); Monocytes % 9.2 %; Neutrophils % 76.9 %; Nucleated Red Blood Cells % 0 %; Platelet Count 231 10^3/cmm (157-399); Red Blood Count 3.68 10^6/uL (3.85-5.65); Red Cell Distribution Width 20.9 % (12.1-15.1); White Blood Count 9.88 10^3/uL (3.29-11.43)
[2024-06-16 04:56] LABS: Alanine Aminotransferase 15 U/L (0-41); Albumin Level 3.7 g/dL (3.5-5.2); Alkaline Phosphatase 151 U/L (40-130); Aspartate Amino Transferase 27 U/L (0-40); Calcium 8.9 mg/dL (8.5-10.5); Carbon Dioxide 27 mmol/L (22-29); Chloride 94 mmol/L (98-107); Creatinine Clr Calc Pharmacy 36.6635; Globulin 3.4 g/dL (1.3-4.6); Glucose 164 mg/dL (65-115); Osmolality Calculated 312 mOsm/kg (285-295); Sodium 137 mmol/L (136-145); Total Bilirubin 0.6 mg/dL (0.15-1.2); Total Protein 7.1 g/dL (6.6-8.7)
[2024-06-16 05:09] LABS: Blood Urea Nitrogen 82 mg/dL (8-23)
[2024-06-16] MEDS: ascorbic acid 500 mg Tablet 250 MG PO (05:51)
[2024-06-16] MEDS: cyanocobalamin 1,000 mcg Tablet 1000 MCG PO (05:51)
[2024-06-16] MEDS: aspirin 81 mg EC Tablet PO (05:51)
[2024-06-16 06:32] LABS: Glucose Point of Care 167 mg/dL (70-110)
[2024-06-16] MEDS: bisacodyl 5 mg Tablet 10 MG PO (08:10)
[2024-06-16] MEDS: insulin lispro 100 unit/1 mL SUBCUT ×4 (08:10→20:36)
[2024-06-16] MEDS: metoprolol tartrate 25 mg Tablet 12.5 MG PO ×2 (08:11→20:36)
[2024-06-16] MEDS: metOLazone 5 MG Tablet PO (08:11)
[2024-06-16] MEDS: budesonide 0.5 mg/2 mL Neb INHALATION ×2 (08:50→20:58)
--- NOTE | 2024-06-16 10:03 | PM.PN ---
Subjective Subjective: The patient is feeling little better. Still seems have some shortness of breath. The abdominal girth does not seem to be going down. No chest pain. No other specific complaints. Medications: Medication Review Details: Current Medications Acetaminophen (Acetaminophen 325 Mg Tablet) 650 mg PO Q6H PRN PRN Reason: Mild/Mod Pain Or Temp >/= 101 Albuterol/Ipratropium (Ipratropium-Albuterol 3 Ml Neb) 3 ml INHALATION Q6H.RESP [facility] Last Admin: 06/16/24 08:50 Dose: 3 ml Ascorbic Acid (Ascorbic Acid 500 Mg Tablet) 250 mg PO QAM [facility] Last Admin: 06/16/24 05:51 Dose: 250 mg Aspirin (Aspirin 81 Mg Ec Tablet) 81 mg PO QAOK [facility] [place] Last Admin: 06/16/24 05:51 Dose: 81 mg Bisacodyl (Bisacodyl 5 Mg Tablet) 10 mg PO DAILY [facility]; Protocol Last Admin: 06/16/24 08:10 Dose: 10 mg Budesonide (Budesonide 0.5 Mg/2 Ml Neb) 0.5 mg INHALATION BID.RESPIRATORY [facility] Last Admin: 06/16/24 08:50 Dose: 0.5 mg Bumetanide (Bumetanide 1 Mg Tablet) 2 mg PO TID [facility] Clopidogrel Bisulfate (Clopidogrel 75 Mg Tablet) 75 mg PO BEDTIME [facility] [place] Last Admin: 06/15/24 20:29 Dose: 75 mg Cyanocobalamin (Cyanocobalamin 1,000 Mcg Tablet) 1,000 mcg PO QAOK [facility] [place] Last Admin: 06/16/24 05:51 Dose: 1,000 mcg Diclofenac Sodium (Diclofenac 1% Topical Gel 100 Gm) 4 applic TOPICAL QID PRN PRN Reason: Pain Glucagon (Glucagon 1 Mg/Ml Kit 1 Ml) 1 mg IM ONCE PRN; Protocol PRN Reason: Adult Acute Hypoglycemia Nursing Prot. Heparin Sodium (Porcine) (Heparin 5,000 Unit/Ml Inj 1 Ml) 5,000 unit SUBCUT Q12H [facility] [place] Last Admin: 06/16/24 03:16 Dose: 5,000 unit Dextrose (D5w) 500 mls @ 0 mls/hr IV ONCE PRN; Protocol PRN Reason: Adult Acute Hypoglycemia Prot Dextrose (D10w) 125 mls @ 750 mls/hr IV PRN PRN; Protocol PRN Reason: Adult Acute Hypoglycemia Nursing Protocol Dextrose (D10w) 250 mls @ 1,000 mls/hr IV PRN PRN; Protocol PRN Reason: Adult Acute Hypoglycemia Nursing Protocol Insulin Glargine (Insulin Glargine 100 Units/1 Ml) 5 unit SUBCUT BEDTIME [facility] [place] Last Admin: 06/15/24 20:30 Dose: 5 unit Insulin Human Lispro (Insulin Lispro 100 Unit/1 Ml) 0 unit SUBCUT WM&BEDTIME [facility]; Protocol Last Admin: 06/16/24 08:10 Dose: 2 unit Lactulose (Lactulose Oral Liq 20 Gm/30 Ml Udc) 10 gm PO DAILY PRN; Protocol PRN Reason: Constipation (see protocol) Magnesium Hydroxide (Magnesium Hydroxide 30 Ml Udc) 30 ml PO DAILY PRN; Protocol PRN Reason: Constipation (see protocol) Metolazone (Metolazone 5 Mg Tablet) 5 mg PO DAILY [facility] [place] Last Admin: 06/16/24 08:11 Dose: 5 mg Metoprolol Tartrate (Metoprolol Tartrate 25 Mg Tablet) 12.5 mg PO BID@0900,2100 [facility] [place] Last Admin: 06/16/24 08:11 Dose: 12.5 mg Morphine Sulfate (Morphine 4 Mg/Ml Sdv 1 Ml) 2 mg IVP Q4H PRN PRN Reason: SEVERE PAIN Ondansetron HCl (Ondansetron 2 Mg/Ml Sdv 2 Ml) 4 mg IVP Q8H PRN PRN Reason: vomiting, or N/V if npo Pantoprazole Sodium (Pantoprazole 40 Mg Sdv) 40 mg IVP Q24H [facility] [place] Last Admin: 06/15/24 16:21 Dose: 40 mg Vitals/I&O/Wt Last Vital Signs Temp 98.3 F 06/16/24 07:21 Pulse 95 06/16/24 09:01 Resp 18 06/16/24 08:51 BP 102/56 06/16/24 07:21 Pulse Ox 93 06/16/24 08:51 O2 Del Method Nasal Cannula 06/16/24 08:51 O2 Flow Rate 2 06/16/24 08:51 06/15/24 06/16/24 06/16/24 22:59 06:59 14:59 Intake Total 780 / 1480 480 / 480 Output Total 100 / 1300 600 / 1900 Balance 680 / 180 -600 / -420 480 / 480 Weight last 48 hrs Weight 221 lb 11.2 oz Weight 218 lb Weight 218 lb 6 oz Physical Exam Narrative: GENERAL: The patient is alert and oriented times three. Not in any acute distress. HEENT: No significant pallor, icterus or lymphadenopathy.Oral cavity: There are no mucous membrane lesions. NECK: Trachea appears to be central. No masses noted. No JVD or thyromegaly appreciated. RESPIRATORY: Chest is symmetrical. No intercostals muscle retraction or any accessory muscle activation. There is no chest wall tenderness. Breath sounds are heard bilaterally. No rales or rhonchi heard. No evidence of any consolidation. BREASTS: Deferred. HEART: The heart sounds are normal. No S3 or S4. Short systolic murmur in the lower sternal border. No diastolic murmurs.. No pericardial rub ABDOMEN: No vessel pulsations or distention. No tenderness. No organomegaly appreciated. Bowel sounds are normally heard. : Deferred. RECTAL: Deferred. LYMPHATIC: No lymphadenopathy noted in the neck. EXTREMITIES: 1-2+ edema both extremities. MUSCULOSKELETAL: No acute joint deformities or swelling SKIN: There are no significant rashes or ecchymosis NEUROPSYCHIATRIC: The patient is alert and oriented x3. Appears to be in a good mood. No tremors or rigidity noted. Urinary Catheter Management: Blair: Cath Placed During This Visit: yes Reason for Continuing Indwelling Catheter: Acute Urinary Retention or Obstruction Urinary Catheter Date of Insertion: 06/12/24 Urinary Catheter Time of Insertion: 14:01 Data 06/16/24 03:52 06/17/24 03:47 Other Labs: Laboratory Last Values WBC 9.88 10^3/uL (3.29-11.43) 06/16/24 03:52 RBC 3.68 10^6/uL (3.85-5.65) L 06/16/24 03:52 Hgb 9.30 g/dL (11.27-16.99) L 06/16/24 03:52 Hct 30.2 % (37-53) L 06/16/24 03:52 MCV 82.1 fl (82-101) 06/16/24 03:52 MCH 25.3 pg (27-33) L 06/16/24 03:52 MCHC 30.8 g/dL (30-55) 06/16/24 03:52 RDW 20.9 % (12.1-15.1) H 06/16/24 03:52 Plt Count 231 10^3/cmm (157-399) 06/16/24 03:52 MPV 9.7 fL (7.4-10.4) 06/16/24 03:52 Neut % (Auto) 76.9 % 06/16/24 03:52 Lymph % (Auto) 6.2 % 06/16/24 03:52 Schuyler % (Auto) 9.2 % 06/16/24 03:52 Eos % (Auto) 6.4 % 06/16/24 03:52 Baso % (Auto) 0.9 % 06/16/24 03:52 Neut # (Auto) 7.60 10^3/uL (1.8-7.7) 06/16/24 03:52 Lymph # (Auto) 0.6 10^3/uL (0.8-4.8) L 06/16/24 03:52 Schuyler # (Auto) 0.9 10^3/uL (0.2-0.9) 06/16/24 03:52 Eos # (Auto) 0.6 10^3/uL (0.0-0.8) 06/16/24 03:52 Baso # (Auto) 0.1 10^3/uL (0.0-0.1) 06/16/24 03:52 Nucleated RBC % (auto) 0 % 06/16/24 03:52 Nucleated RBCs # 0.0 /100WBC 06/16/24 03:52 D-Dimer 2.26 ug/mLFEU (0-0.59) H 06/12/24 10:49 Sodium 137 mmol/L (136-145) 06/16/24 03:52 Potassium 4.0 mmol/L (3.5-5.1) 06/16/24 03:52 Chloride 94 mmol/L (98-107) L 06/16/24 03:52 Carbon Dioxide 27 mmol/L (22-29) 06/16/24 03:52 Anion Gap 20.0 (5-19) H 06/16/24 03:52 BUN 82 mg/dL (8-23) H* 06/16/24 03:52 Creatinine 2.2 mg/dL (0.7-1.2) H 06/16/24 03:52 GFR Calculation Not Reportable 06/16/24 03:52 Glucose 164 mg/dL (65-115) H 06/16/24 03:52 POC Glucose 167 mg/dL (70-110) H 06/16/24 06:17 Estimat Average Glucose 123 06/13/24 04:15 Hemoglobin A1c 5.9 % (4.0-6.0) 06/13/24 04:15 Calculated Osmolality 312 mOsm/kg (285-295) H 06/16/24 03:52 Lactic Acid 1.9 mmol/L (0.5-2.2) 06/12/24 10:49 Calcium 8.9 mg/dL (8.5-10.5) 06/16/24 03:52 Phosphorus 5.0 mg/dL (2.5-4.5) H 06/13/24 04:15 Magnesium 2.8 mg/dL (1.7-2.3) H 06/13/24 04:15 Iron 35 ug/dL (59-158) L 06/12/24 10:49 TIBC 288 mcg/dl 06/12/24 10:49 % Saturation 12.1 % (20-50) L 06/12/24 10:49 Unsat Iron Binding 253 ug/dL (112-347) 06/12/24 10:49 Total Bilirubin 0.6 mg/dL (0.15-1.2) 06/16/24 03:52 AST 27 U/L (0-40) 06/16/24 03:52 ALT 15 U/L (0-41) 06/16/24 03:52 Alkaline Phosphatase 151 U/L (40-130) H 06/16/24 03:52 Troponin T Baseline 68 ng/L (0-15) H 06/12/24 10:49 Troponin T Hi Sens 6Hr 55.98 ng/L (0-15) H 06/12/24 17:46 Troponin T Hi Sens 6Hr Delta -12.02 ng/L (0-12) L 06/12/24 17:46 NT-Pro-B Natriuret Pep 20220 pg/mL (0-125) H 06/12/24 10:49 Total Protein 7.1 g/dL (6.6-8.7) 06/16/24 03:52 Albumin 3.7 g/dL (3.5-5.2) 06/16/24 03:52 Globulin 3.4 g/dL (1.3-4.6) 06/16/24 03:52 Triglycerides 46 mg/dL (0-150) 06/13/24 04:15 Cholesterol 88 mg/dL (0-200) 06/13/24 04:15 LDL Cholesterol, Calc 42 mg/dL (50-129) L 06/13/24 04:15 HDL Cholesterol 37 mg/dL (60-100) L 06/13/24 04:15 LDL/HDL Ratio 1.14 RATIO (0.00-3.22) 06/13/24 04:15 Cholesterol/HDL Ratio 2.38 mg/dL (1.0-5.00) 06/13/24 04:15 Vitamin B12 1965 pg/mL (232-1245) H 06/12/24 10:49 Folate 9.5 ng/mL (4.5-32.2) 06/13/24 04:15 Procalcitonin 0.36 ng/mL (0-0.5) 06/13/24 04:15 TSH 2.85 uIU/mL (0.27-4.20) 06/12/24 10:49 Random Cortisol 12.39 ug/dL (2.47-19.5) 06/14/24 03:57 Urine Color Yellow (Yellow) 06/12/24 17:00 Urine Appearance Slightly cloudy (CLEAR) 06/12/24 17:00 Urine pH 5 (5-7) 06/12/24 17:00 Ur Specific [place] 1.010 (1.005-1.030) 06/12/24 17:00 Urine Protein 1+ (Negative) H 06/12/24 17:00 Urine Glucose (UA) Norm (Normal) 06/12/24 17:00 Urine Ketones Negative (Negative) 06/12/24 17:00 Urine Blood 3+ (Negative) H 06/12/24 17:00 Urine Nitrate Negative (Negative) 06/12/24 17:00 Urine Bilirubin Neg (Negative) 06/12/24 17:00 Urine Urobilinogen Norm mg/dL (Negative) 06/12/24 17:00 Ur Leukocyte Esterase 1+ (Negative) H 06/12/24 17:00 Urine RBC >100 /hpf (0-2) H 06/12/24 17:00 Urine WBC 0-4 /hpf (0-5) H 06/12/24 17:00 Ur Squamous Epith Cells None /hpf (0-5) 06/12/24 17:00 Amorphous Sediment Not Reportable 06/12/24 17:00 Urine Bacteria Trace /hpf (NONE) 06/12/24 17:00 Hyaline Casts 0-4 /lpf H 06/12/24 17:00 Ur Random Sodium 52 mmol/L 06/12/24 17:00 Ur Random Potassium 43 mmol/L 06/12/24 17:00 Ur Random Chloride 73 mmol/L 06/12/24 17:00 Urine Creatinine 32 mg/dL (39-259) L 06/12/24 17:00 Nasal MRSA (PCR) Not detected ` (Negative) 06/12/24 17:43 Urine Opiates Screen Negative ng/mL (Negative) 06/12/24 17:00 Ur Barbiturates Screen Negative ng/mL (Negative) 06/12/24 17:00 Ur Phencyclidine Scrn Negative ng/mL (Negative) 06/12/24 17:00 Ur Amphetamines Screen Negative ng/mL (Negative) 06/12/24 17:00 U Benzodiazepines Scrn Negative ng/mL (Negative) 06/12/24 17:00 Urine Cocaine Screen Negative ng/mL (Negative) 06/12/24 17:00 U Marijuana (THC) Screen Negative ng/mL (Negative) 06/12/24 17:00 MRSA (PCR) Cancelled 06/12/24 Unknown Micro: Microbiology 06/12/24 17:00 Urine Culture - Final Urine,Clean Catch A&P Assessment and plan (1) Acute on chronic systolic heart failure: Etiology is not clear. Patient apparently has significant drop in the LV ejection fraction. This could be the major contributing factor. Progressive worsening of LV systolic function/negative remodeling could be a major contributing factor. Possibility of coronary ischemia causing this cannot be excluded. But the patient has no significant symptoms pertaining to that. He is currently on Bumex and metolazone. Bumex was discontinued today. Still seems to have significant heart failure symptoms. May consider IV Lasix tomorrow (2) Atherosclerosis of coronary artery of [place] heart without angina pectoris: Patient had the last coronary angiogram in 2021. We may consider doing a Myocardial perfusion imaging first. Based on the results, further recommendations will be made. In the meanwhile, he may continue on the current medications. No evidence of any myocardial injury so far. EKG changes are nonspecific. We may go ahead and do a Myocardial perfusion imaging tomorrow to evaluate for underlying coronary ischemia. In view of the high BUN/creatinine ratio, we may try to avoid the angiogram if at all possible Qualifiers: Coronary Disease-Associated Artery/Lesion type: [place] artery Qualified Code(s): I25.10 - Atherosclerotic heart disease of [place] coronary artery without angina pectoris (3) Ascites: Part of it could be with heart failure. The hepatocellular carcinoma also might be playing a role. This may need to be looked into. Qualifiers: Ascites type: other type Qualified Code(s): R18.8 - Other ascites (4) Hyperlipidemia: May continue on the current management. Qualifiers: Hyperlipidemia type: mixed hyperlipidemia Qualified Code(s): E78.2 - Mixed hyperlipidemia (5) Hypotension: Currently the blood pressure has improved. Qualifiers: Hypotension type: other hypotension type Qualified Code(s): I95.89 - Other hypotension (6) Diabetes: Aggressive management of the diabetes would be appropriate. The blood sugar seems to fairly under control. Qualifiers: Diabetes mellitus complication status: without complication Diabetes mellitus termite control representative insulin use: without termite control representative use Diabetes mellitus type: type 2 Qualified Code(s): E11.9 - Type 2 diabetes mellitus without complications (7) Acute on chronic renal failure: There is no significant improvement of the BUN/creatinine ratio. In view of the anemia, need to rule out any GI bleed. Hepatocellular carcinoma also could be a contributing factor Qualifiers: Acute renal failure type: with other specified pathological lesion Chronic kidney disease stage: stage 2 (mild) Qualified Code(s): N17.8 - Other acute kidney failure; N18.2 - Chronic kidney disease, stage 2 (mild) Plan The other problems are Peripheral arterial disease COPD Hepatocellular carcinoma History of pancreatitis/pancreatic cyst Myocardial perfusion imaging tomorrow, if the patient can lie flat Hydralazine 10 mg p.o. 3 times daily starting tomorrow May need to look into the diagnosis of hepatocellular carcinoma? Attestations Medical Necessity Statement*: Patient requires continued hospital stay for close monitoring and further management Coding Level of Care Code 96450 Diagnoses Acute on chronic systolic heart failure I50.23 Atherosclerosis of [place] coronary artery of [place] heart without angina pectoris I25.10 Coronary Disease-Associated Artery/Lesion type: [place] artery Other ascites R18.8 Ascites type: other type Mixed hyperlipidemia E78.2 Hyperlipidemia type: mixed hyperlipidemia Other specified hypotension I95.89 Hypotension type: other hypotension type Type 2 diabetes mellitus without complication, without long-term current use of insulin E11.9 Diabetes mellitus complication status: without complication Diabetes mellitus mcc insulin use: without termite control representative use Diabetes mellitus type: type 2 Acute renal failure with other specified pathological kidney lesion superimposed on stage 2 chronic kidney disease N17.8; N18.2 Acute renal failure type: with other specified pathological lesion Chronic kidney disease stage: stage 2 (mild)
[2024-06-16 11:47] LABS: Glucose Point of Care 308 mg/dL (70-110)
--- NOTE | 2024-06-16 12:35 | P.PN_ITS ---
Subjective 2 Subjective: No acute events overnight. Today morning examination patient laying flat comfortably in bed. States feeling a lot better. Currently on 3 L of oxygen supplementation. Saturation being maintained over 95%. Has remained hemodynamically stable and afebrile. Seems to be discrepancy in patient's urine output documentation in last 24 hours especially when moved from ICU to CSU. Patient denies any chest pain. Has been compliant with fluid restrictions Vitals/I&O/Wt Last Vital Signs Temp 97.7 F 06/16/24 11:10 Pulse 93 06/16/24 11:10 Resp 14 06/16/24 11:10 BP 103/60 06/16/24 11:10 Pulse Ox 97 06/16/24 11:10 O2 Del Method Nasal Cannula 06/16/24 11:10 O2 Flow Rate 2 06/16/24 08:51 06/15/24 06/16/24 06/16/24 22:59 06:59 14:59 Intake Total 780 / 1480 480 / 480 Output Total 100 / 1300 600 / 1900 Balance 680 / 180 -600 / -420 480 / 480 Weight last 48 hrs Weight 100.561 kg Weight 98.883 kg Weight 99.053 kg Physical Exam 2 Narrative: General: No acute distress, AO x3 pleasant, chronically sick appearing, HEENT: PERRLA, pupils bilaterally equal and reactive Chest: Bilateral bronchial breath sounds all over lung mueller with occasional rhonchi, fine crackles bilateral lower zone CVS: S1-S2 regular, soft pansystolic murmur at apex rating to anterior axillary line, no tachycardia, no gallops, no rubs Abdomen: Soft, distended, nontender no organomegaly, bowel sounds present Neuro: No focal deficits, no facial deformity, AO x3, power 5/5 in all limbs Urinary Catheter Management: Blair: Cath Placed During This Visit: yes Reason for Continuing Indwelling Catheter: Acute Urinary Retention or Obstruction Urinary Catheter Date of Insertion: 06/12/24 Urinary Catheter Time of Insertion: 14:01 Data 06/16/24 03:52 06/16/24 03:52 Micro: Microbiology 06/12/24 17:00 Urine Culture - Final Urine,Clean Catch A&P Assessment and plan (1) Acute on chronic renal failure: Baseline creatinine 1.7. Currently showing slight improvement with creatinine down to 2.4. Most likely in setting of congestive heart failure along with soft blood pressures at home. High concerns for cardiorenal syndrome. Blair catheterization. Strict input output charting. Cheetah examination shows patient being not fluid responsive on 06/12. Appreciate urine lites with urine sodium of 52 and creatinine of 32. Fena?3.1 consistent with intrinsic pathology. CT abdomen pelvis negative for obstructive nephropathy. Will plan to keep mean arterial pressure around 65. IV Bumex Q8 hourly 2 mg. Continue with metolazone 5 mg oral daily. If not responding will start on Bumex drip. If kidney functions are not improving will plan to consult nephrology for further recommendations. Qualifiers: Acute renal failure type: with other specified pathological lesion C hronic kidney disease stage: stage 2 (mild) Qualified Code(s): N17.8 - Other acute kidney failure; N18.2 - Chronic kidney disease, stage 2 (mild) (2) Cardiogenic shock: With episodes of hypotension at home as well. Maintain mean artery pressure 65. Started on Levophed and wean accordingly. (3) Chronic systolic (congestive) heart failure: New echocardiogram shows worsening of EF down to 25% Currently symptoms of dyspnea on exertion along with orthopnea with high concerns of exacerbation of congestive heart failure. Strict input and output charting, daily weights. Bumex as above. proBNP elevated. Troponin cycled not significant. Will consult cardiology for further recommendations given worsening of EF. Last angiogram from July 2022 showed patent CONROY to LAD and venous graft to PDA with total occlusion of venous graft to obtuse marginal and diagonal arteries with severely elevated diastolic pressures for which medical treatment was opted. (4) Ischemic cardiomyopathy: Echocardiogram done shows an EF of 25% with grade 3 diastolic dysfunction, dilated RA with moderate diminished ejection fraction, moderate biatrial enlargement, moderate to severe mitral valve regurgitation, mild TR with PASP of 40 mmHg with moderate pulmonary valve regurgitation. Patient has worsening of EF. Denies any current chest pain. Troponin cycle negative. For now continue with home dose of aspirin, Plavix. Appreciate lipid panel. A1c of 5.9. (5) Hypotension: Goal blood pressure less than 140/90 mmHg with mean over 65. Blood pressures have been running low even at home. 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 (7) Cardiorenal syndrome: (8) Hypertension: Qualifiers: Hypertension type: essential hypertension Qualified Code(s): I10 - Essential (primary) hypertension Plan Type 2 diabetes mellitus: Episodes of hypoglycemia recently at home. Hold off on Lantus. Continue with insulin at low-dose protocol. Will restart Lantus as per 24-hour requirements. A1c of 5.9. Plan for the day: Hemodynamically has remained stable. Around 6 L net negative though seems to be having discrepancy in urine output documentation last 24-hour. Laying comfortably in bed with head of the bed elevated up to 10 degrees. Switch to oral Bumex 2 mg every 8 hourly. Continue with the metolazone 5 mg oral daily. Repeat BMP in afternoon to monitor for creatinine and potassium. Target potassium around 4. Patient seems to be able to lie on flutter. Will discuss with cardiology for possible need of cardiac stress test in AM. If agreeable we will keep n.p.o. after midnight. Continue with aspirin, statin, Plavix, metoprolol 12.5 mg twice daily added yesterday. Patient seems to be tolerating well for now. Continue with fluid restriction up to 1500 cc. CODE STATUS: Discussed detail with the patient. with the DPOA. Full code Renal nondialysis diabetic diet Protonix for PUD prophylaxis Heparin for DVT prophylaxis Attestations 2 Medical Necessity Statement*: Requires further hospitalization for management of congestive heart failure in setting of ischemic cardiomyopathy with EF of 25%, WHIT on CKD while patient remains on high-dose diuretics, ACS workup Diagnoses Acute renal failure with other specified pathological kidney lesion superimposed on stage 2 chronic kidney disease N17.8; N18.2 Acute renal failure type: with other specified pathological lesion Chronic kidney disease stage: stage 2 (mild) Cardiogenic shock R57.0 Chronic systolic (congestive) heart failure I50.22 Ischemic cardiomyopathy I25.5 Other specified hypotension I95.89 Hypotension type: other hypotension type 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
--- NOTE | 2024-06-16 12:38 | ECG_ITS ---
[facility] Test Date: 2024-06-17 Pat Name: Torey Kaba Department: Room: 105 Gender: Male [employer]: : 1950 Requested By: Cole Peraza Order Number: [id number] Reading MD: Interpretive Statements Lung unchanged pre/post procedure;; Intraprocedure shortess of breath; N/V that resolved after the administration of Zofran [id number]
[2024-06-16 15:24] LABS: Calcium 8.9 mg/dL (8.5-10.5); Carbon Dioxide 28 mmol/L (22-29); Creatinine Clr Calc Pharmacy 36.6635
[2024-06-16 15:38] LABS: Chloride 92 mmol/L (98-107); Glucose 269 mg/dL (65-115); Osmolality Calculated 314 mOsm/kg (285-295); Sodium 134 mmol/L (136-145)
[2024-06-16 15:39] LABS: Anion Gap 17.7 (5-19); Blood Urea Nitrogen 86 mg/dL (8-23); Potassium 3.7 mmol/L (3.5-5.1)
[2024-06-16 16:44] LABS: Glucose Point of Care 234 mg/dL (70-110)
[2024-06-16] MEDS: pantoprazole 40 mg SDV IVP (17:12)
[2024-06-16] MEDS: bumetanide 1 mg Tablet PO (17:12)
[2024-06-16 20:36] LABS: Glucose Point of Care 255 mg/dL (70-110)
[2024-06-16] MEDS: clopidogrel 75 mg Tablet PO (20:36)
[2024-06-16] MEDS: insulin glargine 100 units/1 mL 5 UNIT SUBCUT (20:37)
[2024-06-16] MEDS: magnesium hydroxide 30 mL UDC PO (23:39)
[2024-06-17] VITALS (13 sets, daily range): BP systolic 97–110; BP diastolic 63–75; PULSE 72–109; RESP 16–22; TEMP 36.6–36.9; O2SAT 91–97; BMI 31.6
[2024-06-17] MEDS: ipratropium-albuterol 3 mL Neb INHALATION ×3 (03:13→20:43)
[2024-06-17] MEDS: heparin 5,000 unit/mL INJ 1 mL 5000 UNIT SUBCUT ×2 (03:50→15:08)
[2024-06-17 04:49] LABS: Alanine Aminotransferase 29 U/L (0-41); Albumin Level 3.8 g/dL (3.5-5.2); Alkaline Phosphatase 179 U/L (40-130); Anion Gap 18.8 (5-19); Aspartate Amino Transferase 54 U/L (0-40); Calcium 9.1 mg/dL (8.5-10.5); Carbon Dioxide 28 mmol/L (22-29); Chloride 95 mmol/L (98-107); Globulin 3.8 g/dL (1.3-4.6); Glucose 167 mg/dL (65-115); Magnesium 2.4 mg/dL (1.7-2.3); Osmolality Calculated 317 mOsm/kg (285-295); Potassium 3.8 mmol/L (3.5-5.1); Sodium 138 mmol/L (136-145); Total Bilirubin 0.8 mg/dL (0.15-1.2); Total Protein 7.6 g/dL (6.6-8.7)
[2024-06-17 04:53] LABS: Creatinine Clr Calc Pharmacy 33.5226
[2024-06-17 04:54] LABS: Blood Urea Nitrogen 90 mg/dL (8-23)
[2024-06-17] MEDS: cyanocobalamin 1,000 mcg Tablet 1000 MCG PO (05:21)
[2024-06-17] MEDS: ascorbic acid 500 mg Tablet 250 MG PO (05:21)
[2024-06-17] MEDS: aspirin 81 mg EC Tablet PO (05:21)
[2024-06-17 06:23] LABS: Glucose Point of Care 204 mg/dL (70-110)
[2024-06-17] MEDS: regadenoson 0.4 Mg/5 ml Syringe IVP (07:21)
[2024-06-17] MEDS: ondansetron 2 mg/ML SDV 2 mL 4 MG IVP (07:36)
[2024-06-17] MEDS: metOLazone 5 MG Tablet PO (08:24)
[2024-06-17] MEDS: hyDRALAzine 10 mg Tablet PO (08:24)
[2024-06-17] MEDS: bumetanide 1 mg Tablet PO ×2 (08:24→17:57)
[2024-06-17] MEDS: bisacodyl 5 mg Tablet 10 MG PO (08:24)
[2024-06-17] MEDS: metoprolol tartrate 25 mg Tablet 12.5 MG PO ×2 (08:24→20:56)
[2024-06-17] MEDS: insulin lispro 100 unit/1 mL SUBCUT ×4 (08:24→20:56)
[2024-06-17 12:04] LABS: Glucose Point of Care 254 mg/dL (70-110)
--- NOTE | 2024-06-17 12:38 | NMCV_ITS ---
NM eric perf SPECT r/s* [id number] Torey Kaba Age: 74 Gender: M : 1950 Exam Date: 06/17/2024 06:34 Ordering Phys: Cole Peraza MD Technologist: CHRISTOS Torre Exam Location: [facility] Indications: cp STRESS TEST Please see separate stress test report in [facility] for full findings IMAGE PROTOCOL Rest/Stress 1 Lexiscan Day Radiopharmaceutical Dose (mCi) Administration Site Administered by Rest: Tc-99m 10.7 IV CHRISTOS Wang Sestamibi Stress:Tc-99m 32.7 IV CHRISTOS Torre Sestaminahomi Rest: 17-Jun-2024 60 Discovery 630 Stress: 17-Jun-2024 30 Discovery 630 0.4mg Lexiscan. Images obtained in supine and prone position. SPECT RESULTS Technical Quality: Good Raw Data Analysis: Normal Image Corrections: No attenuation or motion correction applied Summed Stress Score: 33 Summed Rest Score: 33 Summed Difference Score: 2 PERFUSION FINDINGS Moderate to severely decreased tracer uptake was noted in the basal and mid anterolateral, inferolateral, mid and apical anterior, mid anteroseptal, mid inferior apical septal and apical lateral segments. Slight reversibility was noted in the basal and mid inferolateral segments FUNCTIONAL RESULTS (calculated via Gated SPECT) Stress Image LV EF (%): 16 Stress EDV (mL):281 TID: 1.09 Stress ESV (mL):237 FUNCTIONAL FINDINGS: Segmental wall motion analysis revealed severe diffuse hypokinesis of the left ventricle. Markedly dilated LV cavity. Transient ischemic dilatation ratio 1.09. IMPRESSIONS 1. Myocardial perfusion imaging revealing extensive areas of myocardial scarring mostly in the distribution of all 3 coronary arteries more so in the distribution of the left anterior descending artery and circumflex artery with subtle areas of ischemia mostly in th circumflex artery distribution. 2. Markedly diminished LV ejection fraction of 16%. 3. Segmental wall motion analysis revealing severe diffuse hypokinesia of the left ventricle. 4. Markedly dilated LV cavity with an end-systolic volume of 237 mL Compared to the study from 07/18/2022, the ischemic burden appears to be much less(the summed score difference of 11 versus 2). The LV ejection fraction appears to be has any fairly decreased with a significant enlargement of the left ventricle. These features may suggest extensive reverse remodeling. Dr Cholo Kelsey MD FACC (Electronically Signed) Final Date: 17 June 2024 14:01 S
[2024-06-17] MEDS: pantoprazole 40 mg SDV IVP (15:08)
--- NOTE | 2024-06-17 16:01 | PC.SOCIAL ---
IMM updated IMM dated and initialed, copy given to patient and placed in chart.
[2024-06-17 16:33] LABS: Glucose Point of Care 256 mg/dL (70-110)
--- NOTE | 2024-06-17 17:13 | P.PN_ITS ---
Subjective 2 Subjective: Patient was seen this morning, is at bedside, he reports persistent shortness of breath and bilateral extremity edema, denies any nausea, no vomiting, no lightheadedness, dizziness, -I had a discussion with him about his E F at 25%, with developing fluid overload, respiratory failure requiring diuresis, -He has underlying CKD stage IIIb, with diuresis his creatinine and BUN has trended upwards -Discussed with him that the tricky part is as restarting to take off fluid, the creatinine increases, and can cause acute renal failure resulting in dialysis -But sometimes the creatinine elevation can be from cardiorenal syndrome from his heart failure -As he continues to have 2+ pitting gaurav a complains of shortness of breath, I think he would benefit from further diuresis and he is agreeable -He does report increased abdominal dist ention but does not complain of any pain, he has a history of hepatocellular carcinoma, which she follows up with [facility] ? He had his stress test, denies any chest pain, he is worried about ending up on dialysis if he receives contrast -We did in detail discussed contrast-ind uced nephropathy, he tells me that his family member went through dialysis, and it worries him Vitals/I&O/Wt Last Vital Signs Temp 98.4 F 06/17/24 16:00 Pulse 72 06/17/24 16:45 Resp 18 06/17/24 16:45 BP 110/70 06/17/24 16:45 Pulse Ox 95 06/17/24 16:45 O2 Del Method Nasal Cannula 06/17/24 13:29 O2 Flow Rate 2 06/17/24 13:29 06/17/24 06/17/24 06/17/24 06:59 14:59 22:59 Intake Total 700 / 2278 120 / 120 Output Total 450 / 1750 Balance 250 / 528 120 / 120 Weight last 48 hrs Weight 102.92 kg Weight 102.92 kg Weight 100.017 kg Weight 100.561 kg Physical Exam 2 Const: COMMON NORMALS: no acute distress and patient oriented x3 Resp: COMMON NORMALS: normal respiratory effort, No retractions, No use of accessory muscles and clear to auscultation bilaterally AUSCULTATION: clear to auscultation bilaterally Cardio: COMMON NORMALS: regular rate, regular rhythm, S1 normal heart sound present and S2 normal heart sound present RATE: regular rate RHYTHM: r egular rhythm HEART SOUNDS: S1 normal heart sound present and S2 normal heart sound present GI: COMMON NORMALS: Normal to inspection, nondistended, normoactive bowel sounds present and non-tender OTHER: His abdominal distention, fluid wave present Extremity: NARRATIVE EXTREMITY EXAM: 1+ pitting edema bilateral lower extremi ty Neuro: COMMON NORMALS: patient oriented x3 Psych: COMMON NORMALS: mental status grossly normal Urinary Catheter Management: Blair: Cath Placed During This Visit: yes Reason for Continuing Indwelling Catheter: Acute Urinary Retention or Obstruction Urinary Catheter Date of Insertion: 06/12/24 Urinary Catheter Time of Insertion: 14:01 Data 06/16/24 03:52 06/17/24 03:47 Micro: Microbiology 06/12/24 14:32 Blood Culture - Final Blood NO GROWTH AFTER 5 DAYS 06/12/24 14:28 Blood Culture - Final Blood NO GROWTH AFTER 5 DAYS A&P Assessment and plan (1) Acute on chronic renal failure: Baseline CKD stage IIIb Baseline creatinine 1.7. Creatinine up to 2.4 Elevated creatinine due to soft blood pressures and or diuresis and/or cardiorenal syndrome Blair catheterization. Strict input output charting. Cheetah examination shows patient being not fluid responsive on 06/12. Appreciate urine lites with urine sodium of 52 and creatinine of 32. Fena?3.1 consistent with intrinsic pathology. CT abdomen pelvis negative for obstructive nephropathy. Will plan to keep mean arterial pressure around 65. Recheck BMP in the evening Will consider consulting nephrology based on clinical progress Qualifiers: Acute renal failure type: with other specified pathological lesion C hronic kidney disease stage: stage 2 (mild) Qualified Code(s): N17.8 - Other acute kidney failure; N18.2 - Chronic kidney disease, stage 2 (mild) (2) Cardiogenic shock: Monitor (3) Chronic systolic (congestive) heart failure: CONCLUSIONS Dilated left-ventricular with a thinned out septum. Severe diffuse hypokinesia with an ejection fraction of 25%. Grade III/IV diastolic dysfunction (restrictive filling pattern), severely elevated filling pressures. Dilated right ventricle with a moderately diminished ejection fraction. Moderate biatrial enlargement Moderate-severe mitral valve regurgitation. Minimally thickened aortic valve. Mild tricuspid valve regurgitation. Estimated pulmonary artery peak systolic pressure 40 mmHg. Moderate pulmonary valve regurgitation. There is no pericardial effusion. There are no intracardiac masses. Compared to the study from 08/13/2023, there is significant drop in the LV ejection fraction from 45% to 25% Strict input and output charting, daily weights. Bumex as above. Last angiogram from July 2022 showed patent [place] to LAD and venous graft to PDA with total occlusion of venous graft to obtuse marginal and diagonal arteries with severely elevated diastolic pressures for which medical treatment was opted. (4) Ischemic cardiomyopathy: Last angiogram from July 2022 showed patent CONROY to LAD and venous graft to PDA with total occlusion of venous graft to obtuse marginal and diagonal arteries with severely elevated diastolic pressures for which medical treatment was opted. Denies any current chest pain. For now continue with home dose of aspirin, Plavix. Stress test today (5) Hypotension: Goal blood pressure less than 140/90 mmHg with mean over 65. Blood pressures have been running low even at home. 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 A1c of 5.9. CODE STATUS: Discussed detail with the patient. with the DPOA. Full code Renal nondialysis diabetic diet Protonix for PUD prophylaxis Heparin for DVT prophylaxis Attestations 2 Medical Necessity Statement*: Patient requires hospitalization for acute CHF exacerbation, hypotension Diagnoses Acute renal failure with other specified pathological kidney lesion superimposed on stage 2 chronic kidney disease N17.8; N18.2 Acute renal failure type: with other specified pathological lesion Chronic kidney disease stage: stage 2 (mild) Cardiogenic shock R57.0 Chronic systolic (congestive) heart failure I50.22 Ischemic cardiomyopathy I25.5 Other specified hypotension I95.89 Hypotension type: other hypotension type 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
--- NOTE | 2024-06-17 17:29 | PM.PN ---
Subjective Subjective: Patient had the Myocardial perfusion imaging today. He was found to have a small area of ischemia in the inferolateral region. The ischemic burden appears to be much less compared to the previous study. Medications: Medication Review Details: Current Medications Acetaminophen (Acetaminophen 325 Mg Tablet) 650 mg PO Q6H PRN PRN Reason: Mild/Mod Pain Or Temp >/= 101 Albuterol/Ipratropium (Ipratropium-Albuterol 3 Ml Neb) 3 ml INHALATION Q6H.RESP [facility] Last Admin: 06/17/24 13:28 Dose: 3 ml Aminophylline (Aminophylline 25 Mg/Ml Sdv 10 Ml) 25 mg IVP Q2M PRN PRN Reason: see dose instructions Stop: 06/18/24 06:19 Ascorbic Acid (Ascorbic Acid 500 Mg Tablet) [facility] [place] [facility] Admin: 06/17/24 05:21 Dose: 250 mg Aspirin (Aspirin 81 Mg Ec Tablet) [facility] [place] Last Admin: 06/17/24 05:21 Dose: 81 mg Bisacodyl (Bisacodyl 5 Mg Tablet) 10 mg PO DAILY [facility]; Protocol Last Admin: 06/17/24 08:24 Dose: 10 mg Budesonide (Budesonide 0.5 Mg/2 Ml Neb) 0.5 mg INHALATION BID.RESPIRATORY [facility] Last Admin: 06/17/24 07:40 Dose: Not Given Bumetanide (Bumetanide 1 Mg Tablet) 1 mg PO BID [facility] Last Admin: 06/17/24 08:24 Dose: 1 mg Clopidogrel Bisulfate (Clopidogrel 75 Mg Tablet) 75 mg PO BEDTIME [facility] Last Admin: 06/16/24 20:36 Dose: 75 mg Cyanocobalamin (Cyanocobalamin 1,000 Mcg Tablet) 1,000 mcg PO QAM [facility] Last Admin: 06/17/24 05:21 Dose: 1,000 mcg Diclofenac Sodium (Diclofenac 1% Topical Gel 100 Gm) 4 applic TOPICAL QID PRN PRN Reason: Pain Glucagon (Glucagon 1 Mg/Ml Kit 1 Ml) 1 mg IM ONCE PRN; Protocol PRN Reason: Adult Acute Hypoglycemia Nursing Prot. Heparin Sodium (Porcine) (Heparin 5,000 Unit/Ml Inj 1 Ml) 5,000 unit SUBCUT Q12H [facility] Last Admin: 06/17/24 15:08 Dose: 5,000 unit Hydralazine HCl (Hydralazine 10 Mg Tablet) 10 mg PO TID [facility] Last Admin: 06/17/24 15:11 Dose: Not Given Dextrose (D5w) 500 mls @ 0 mls/hr IV ONCE PRN; Protocol PRN Reason: Adult Acute Hypoglycemia Prot Dextrose (D10w) 125 mls @ 750 mls/hr IV PRN PRN; Protocol PRN Reason: Adult Acute Hypoglycemia Nursing Protocol Dextrose (D10w) 250 mls @ 1,000 mls/hr IV PRN PRN; Protocol PRN Reason: Adult Acute Hypoglycemia Nursing Protocol Insulin Glargine (Insulin Glargine 100 Units/1 Ml) 5 unit SUBCUT BEDTIME [facility] Last Admin: 06/16/24 20:37 Dose: 5 unit Insulin Human Lispro (Insulin Lispro 100 Unit/1 Ml) 0 unit SUBCUT WM&BEDTIME [facility]; Protocol Last Admin: 06/17/24 12:16 Dose: 6 unit Lactulose (Lactulose Oral Liq 20 Gm/30 Ml Udc) 10 gm PO DAILY PRN; Protocol PRN Reason: Constipation (see protocol) Magnesium Hydroxide (Magnesium Hydroxide 30 Ml Udc) 30 ml PO DAILY PRN; Protocol PRN Reason: Constipation (see protocol) Last Admin: 06/16/24 23:39 Dose: 30 ml Metolazone (Metolazone 5 Mg Tablet) 5 mg PO DAILY [facility] Last Admin: 06/17/24 08:24 Dose: 5 mg Metoprolol Tartrate (Metoprolol Tartrate 25 Mg Tablet) 12.5 mg PO BID@0900,2100 [facility] Last Admin: 06/17/24 08:24 Dose: 12.5 mg Morphine Sulfate (Morphine 4 Mg/Ml Sdv 1 Ml) 2 mg IVP Q4H PRN PRN Reason: SEVERE PAIN Nitroglycerin (Nitroglycerin 0.4 Mg Sublingual Tablet) 0.4 mg SUBLINGUAL Q5M PRN PRN Reason: CHEST PAIN Stop: 06/18/24 06:19 Ondansetron HCl (Ondansetron 2 Mg/Ml Sdv 2 Ml) 4 mg IVP Q8H PRN PRN Reason: vomiting, or N/V if npo Ondansetron HCl (Ondansetron 2 Mg/Ml Sdv 2 Ml) 4 mg IVP Q2M PRN PRN Reason: NAUSEA Last Admin: 06/17/24 07:36 Dose: 4 mg Pantoprazole Sodium (Pantoprazole 40 Mg Sdv) 40 mg IVP Q24H [facility] Last Admin: 06/17/24 15:08 Dose: 40 mg Vitals/I&O/Wt Last Vital Signs Temp 98.4 F 06/17/24 16:00 Pulse 72 06/17/24 16:45 Resp 18 06/17/24 16:45 BP 110/70 06/17/24 16:45 Pulse Ox 95 06/17/24 16:45 O2 Del Method Nasal Cannula 06/17/24 13:29 O2 Flow Rate 2 06/17/24 13:29 06/17/24 06/17/24 06/17/24 06:59 14:59 22:59 Intake Total 700 / 2278 120 / 120 Output Total 450 / 1750 Balance 250 / 528 120 / 120 Weight last 48 hrs Weight 226 lb 14.4 oz Weight 226 lb 14.4 oz Weight 220 lb 8 oz Weight 221 lb 11.2 oz Physical Exam Narrative: GENERAL: The patient is alert and oriented times three. Not in any acute distress. HEENT: No significant pallor, icterus or lymphadenopathy.Oral cavity: There are no mucous membrane lesions. NECK: Trachea appears to be central. No masses noted. No JVD or thyromegaly appreciated. RESPIRATORY: Chest is symmetrical. No intercostals muscle retraction or any accessory muscle activation. There is no chest wall tenderness. Breath sounds are heard bilaterally. No rales or rhonchi heard. No evidence of any consolidation. BREASTS: Deferred. HEART: The heart sounds are normal. No S3 or S4. Short systolic murmur in the lower sternal border. No diastolic murmurs.. No pericardial rub ABDOMEN: No vessel pulsations or distention. No tenderness. No organomegaly appreciated. Bowel sounds are normally heard. Distended with moderate ascites : Deferred. RECTAL: Deferred. LYMPHATIC: No lymphadenopathy noted in the neck. EXTREMITIES: 1-2+ edema both extremities. MUSCULOSKELETAL: No acute joint deformities or swelling SKIN: There are no significant rashes or ecchymosis NEUROPSYCHIATRIC: The patient is alert and oriented x3. Appears to be in a good mood. No tremors or rigidity noted. Urinary Catheter Management: Blair: Cath Placed During This Visit: yes Reason for Continuing Indwelling Catheter: Acute Urinary Retention or Obstruction Urinary Catheter Date of Insertion: 06/12/24 Urinary Catheter Time of Insertion: 14:01 Data 06/16/24 03:52 06/17/24 03:47 Other Labs: Laboratory Last Values WBC 9.88 10^3/uL (3.29-11.43) 06/16/24 03:52 RBC 3.68 10^6/uL (3.85-5.65) L 06/16/24 03:52 Hgb 9.30 g/dL (11.27-16.99) L 06/16/24 03:52 Hct 30.2 % (37-53) L 06/16/24 03:52 MCV 82.1 fl (82-101) 06/16/24 03:52 MCH 25.3 pg (27-33) L 06/16/24 03:52 MCHC 30.8 g/dL (30-55) 06/16/24 03:52 RDW 20.9 % (12.1-15.1) H 06/16/24 03:52 Plt Count 231 10^3/cmm (157-399) 06/16/24 03:52 MPV 9.7 fL (7.4-10.4) 06/16/24 03:52 Neut % (Auto) 76.9 % 06/16/24 03:52 Lymph % (Auto) 6.2 % 06/16/24 03:52 [place] % (Auto) 9.2 % 06/16/24 03:52 Eos % (Auto) 6.4 % 06/16/24 03:52 Baso % (Auto) 0.9 % 06/16/24 03:52 Neut # (Auto) 7.60 10^3/uL (1.8-7.7) 06/16/24 03:52 Lymph # (Auto) 0.6 10^3/uL (0.8-4.8) L 06/16/24 03:52 [place] # (Auto) 0.9 10^3/uL (0.2-0.9) 06/16/24 03:52 Eos # (Auto) 0.6 10^3/uL (0.0-0.8) 06/16/24 03:52 Baso # (Auto) 0.1 10^3/uL (0.0-0.1) 06/16/24 03:52 Nucleated RBC % (auto) 0 % 06/16/24 03:52 Nucleated RBCs # 0.0 /100WBC 06/16/24 03:52 D-Dimer 2.26 ug/mLFEU (0-0.59) H 06/12/24 10:49 Sodium 138 mmol/L (136-145) 06/17/24 03:47 Potassium 3.8 mmol/L (3.5-5.1) 06/17/24 03:47 Chloride 95 mmol/L (98-107) L 06/17/24 03:47 Carbon Dioxide 28 mmol/L (22-29) 06/17/24 03:47 Anion Gap 18.8 (5-19) 06/17/24 03:47 BUN 90 mg/dL (8-23) H* 06/17/24 03:47 Creatinine 2.4 mg/dL (0.7-1.2) H 06/17/24 03:47 GFR Calculation Not Reportable 06/17/24 03:47 Glucose 167 mg/dL (65-115) H 06/17/24 03:47 POC Glucose 256 mg/dL (70-110) H 06/17/24 16:21 Estimat Average Glucose 123 06/13/24 04:15 Hemoglobin A1c 5.9 % (4.0-6.0) 06/13/24 04:15 Calculated Osmolality 317 mOsm/kg (285-295) H 06/17/24 03:47 Lactic Acid 1.9 mmol/L (0.5-2.2) 06/12/24 10:49 Calcium 9.1 mg/dL (8.5-10.5) 06/17/24 03:47 Phosphorus 5.0 mg/dL (2.5-4.5) H 06/13/24 04:15 Magnesium 2.4 mg/dL (1.7-2.3) H 06/17/24 03:47 Iron 35 ug/dL (59-158) L 06/12/24 10:49 TIBC 288 mcg/dl 06/12/24 10:49 % Saturation 12.1 % (20-50) L 06/12/24 10:49 Unsat Iron Binding 253 ug/dL (112-347) 06/12/24 10:49 Total Bilirubin 0.8 mg/dL (0.15-1.2) 06/17/24 03:47 AST 54 U/L (0-40) H 06/17/24 03:47 ALT 29 U/L (0-41) 06/17/24 03:47 Alkaline Phosphatase 179 U/L (40-130) H 06/17/24 03:47 Troponin T Baseline 68 ng/L (0-15) H 06/12/24 10:49 Troponin T Hi Sens 6Hr 55.98 ng/L (0-15) H 06/12/24 17:46 Troponin T Hi Sens 6Hr Delta -12.02 ng/L (0-12) L 06/12/24 17:46 NT-Pro-B Natriuret Pep 78139 pg/mL (0-125) H 06/12/24 10:49 Total Protein 7.6 g/dL (6.6-8.7) 06/17/24 03:47 Albumin 3.8 g/dL (3.5-5.2) 06/17/24 03:47 Globulin 3.8 g/dL (1.3-4.6) 06/17/24 03:47 Triglycerides 46 mg/dL (0-150) 06/13/24 04:15 Cholesterol 88 mg/dL (0-200) 06/13/24 04:15 LDL Cholesterol, Calc 42 mg/dL (50-129) L 06/13/24 04:15 HDL Cholesterol 37 mg/dL (60-100) L 06/13/24 04:15 LDL/HDL Ratio 1.14 RATIO (0.00-3.22) 06/13/24 04:15 Cholesterol/HDL Ratio 2.38 mg/dL (1.0-5.00) 06/13/24 04:15 Vitamin B12 1965 pg/mL (232-1245) H 06/12/24 10:49 Folate 9.5 ng/mL (4.5-32.2) 06/13/24 04:15 Procalcitonin 0.36 ng/mL (0-0.5) 06/13/24 04:15 TSH 2.85 uIU/mL (0.27-4.20) 06/12/24 10:49 Random Cortisol 12.39 ug/dL (2.47-19.5) 06/14/24 03:57 Urine Color Yellow (Yellow) 06/12/24 17:00 Urine Appearance Slightly cloudy (CLEAR) 06/12/24 17:00 Urine pH 5 (5-7) 06/12/24 17:00 Ur Specific [place] 1.010 (1.005-1.030) 06/12/24 17:00 Urine Protein 1+ (Negative) H 06/12/24 17:00 Urine Glucose (UA) Norm (Normal) 06/12/24 17:00 Urine Ketones Negative (Negative) 06/12/24 17:00 Urine Blood 3+ (Negative) H 06/12/24 17:00 Urine Nitrate Negative (Negative) 06/12/24 17:00 Urine Bilirubin Neg (Negative) 06/12/24 17:00 Urine Urobilinogen Norm mg/dL (Negative) 06/12/24 17:00 Ur Leukocyte Esterase 1+ (Negative) H 06/12/24 17:00 Urine RBC >100 /hpf (0-2) H 06/12/24 17:00 Urine WBC 0-4 /hpf (0-5) H 06/12/24 17:00 Ur Squamous Epith Cells None /hpf (0-5) 06/12/24 17:00 Amorphous Sediment Not Reportable 06/12/24 17:00 Urine Bacteria Trace /hpf (NONE) 06/12/24 17:00 Hyaline Casts 0-4 /lpf H 06/12/24 17:00 Ur Random Sodium 52 mmol/L 06/12/24 17:00 Ur Random Potassium 43 mmol/L 06/12/24 17:00 Ur Random Chloride 73 mmol/L 06/12/24 17:00 Urine Creatinine 32 mg/dL (39-259) L 06/12/24 17:00 Nasal MRSA (PCR) Not detected ` (Negative) 06/12/24 17:43 Urine Opiates Screen Negative ng/mL (Negative) 06/12/24 17:00 Ur Barbiturates Screen Negative ng/mL (Negative) 06/12/24 17:00 Ur Phencyclidine Scrn Negative ng/mL (Negative) 06/12/24 17:00 Ur Amphetamines Screen Negative ng/mL (Negative) 06/12/24 17:00 U Benzodiazepines Scrn Negative ng/mL (Negative) 06/12/24 17:00 Urine Cocaine Screen Negative ng/mL (Negative) 06/12/24 17:00 U Marijuana (THC) Screen Negative ng/mL (Negative) 06/12/24 17:00 MRSA (PCR) Cancelled 06/12/24 Unknown Micro: Microbiology 06/12/24 14:32 Blood Culture - Final Blood NO GROWTH AFTER 5 DAYS 06/12/24 14:28 Blood Culture - Final Blood NO GROWTH AFTER 5 DAYS A&P Assessment and plan (1) Acute on chronic systolic heart failure: Etiology is not clear. Patient apparently has significant drop in the LV ejection fraction. This could be the major contributing factor. Progressive worsening of LV systolic function/negative remodeling could be a major contributing factor. Small area of coronary ischemia, based on the perfusion scan. Ischemia may not be a major contributor to the LV dysfunction, at this point, based on the above findings. Will try to optimize the afterload reducing agents. (2) Atherosclerosis of coronary artery of [place] heart without angina pectoris: Patient had the last coronary angiogram in 2021. The Myocardial perfusion imaging revealed only a small area of ischemia. Based on the findings, it would be appropriate to continue the medical treatment at this point. Qualifiers: Coronary Disease-Associated Artery/Lesion type: [place] artery Qualified Code(s): I25.10 - Atherosclerotic heart disease of [place] coronary artery without angina pectoris (3) Ascites: Part of it could be with heart failure. The hepatocellular carcinoma also might be playing a role. This may need to be looked into. Discussed with the Dr. Smith. Qualifiers: Ascites type: other type Qualified Code(s): R18.8 - Other ascites (4) Hyperlipidemia: May continue on the current management. Qualifiers: Hyperlipidemia type: mixed hyperlipidemia Qualified Code(s): E78.2 - Mixed hyperlipidemia (5) Hypotension: Currently the blood pressure has improved. Qualifiers: Hypotension type: other hypotension type Qualified Code(s): I95.89 - Other hypotension (6) Diabetes: Aggressive management of the diabetes would be appropriate. The blood sugar seems to fairly under control. Qualifiers: Diabetes mellitus complication status: without complication Diabetes mellitus [facility] insulin use: without [facility] use Diabetes mellitus type: type 2 Qualified Code(s): E11.9 - Type 2 diabetes mellitus without complications (7) Acute on chronic renal failure: The kidney function seems to be slowly getting worse. May be appropriate to get a nephrology input about further management. Qualifiers: Acute renal failure type: with other specified pathological lesion Chronic kidney disease stage: stage 2 (mild) Qualified Code(s): N17.8 - Other acute kidney failure; N18.2 - Chronic kidney disease, stage 2 (mild) Plan The other problems are Peripheral arterial disease COPD Hepatocellular carcinoma History of pancreatitis/pancreatic cyst Patient may continue on the current management. Will try to optimize the heart failure treatment. Based on the clinical progress, further management decisions will be made. Attestations Medical Necessity Statement*: Patient requires continued hospital stay for close monitoring and further management Coding Level of Care Code 32344 Diagnoses Acute on chronic systolic heart failure I50.23 Atherosclerosis of [place] coronary artery of [place] heart without angina pectoris I25.10 Coronary Disease-Associated Artery/Lesion type: [place] artery Other ascites R18.8 Ascites type: other type Mixed hyperlipidemia E78.2 Hyperlipidemia type: mixed hyperlipidemia Other specified hypotension I95.89 Hypotension type: other hypotension type Type 2 diabetes mellitus without complication, without long-term current use of insulin E11.9 Diabetes mellitus complication status: without complication Diabetes mellitus [facility] insulin use: without [facility] use Diabetes mellitus type: type 2 Acute renal failure with other specified pathological kidney lesion superimposed on stage 2 chronic kidney disease N17.8; N18.2 Acute renal failure type: with other specified pathological lesion Chronic kidney disease stage: stage 2 (mild)
[2024-06-17 18:14] LABS: Anion Gap 19.4 (5-19); Calcium 8.7 mg/dL (8.5-10.5); Carbon Dioxide 26 mmol/L (22-29); Chloride 90 mmol/L (98-107); Creatinine Clr Calc Pharmacy 29.1253; Glucose 240 mg/dL (65-115); Osmolality Calculated 309 mOsm/kg (285-295); Potassium 4.4 mmol/L (3.5-5.1); Sodium 131 mmol/L (136-145)
[2024-06-17 18:19] LABS: Blood Urea Nitrogen 94 mg/dL (8-23)
[2024-06-17 20:32] LABS: Glucose Point of Care 267 mg/dL (70-110)
[2024-06-17] MEDS: budesonide 0.5 mg/2 mL Neb INHALATION (20:43)
[2024-06-17] MEDS: insulin glargine 100 units/1 mL 5 UNIT SUBCUT (20:56)
[2024-06-17] MEDS: clopidogrel 75 mg Tablet PO (20:56)
[2024-06-18] VITALS (35 sets, daily range): BP systolic 92–123; BP diastolic 55–68; PULSE 84–113; RESP 7–25; TEMP 36.4–37.5; O2SAT 91–99
[2024-06-18] MEDS: ipratropium-albuterol 3 mL Neb INHALATION ×4 (02:38→19:48)
[2024-06-18 03:08] LABS: Alanine Aminotransferase 31 U/L (0-41); Albumin Level 3.7 g/dL (3.5-5.2); Alkaline Phosphatase 192 U/L (40-130); Anion Gap 18.1 (5-19); Aspartate Amino Transferase 45 U/L (0-40); Calcium 8.8 mg/dL (8.5-10.5); Carbon Dioxide 29 mmol/L (22-29); Chloride 90 mmol/L (98-107); Creatinine Clr Calc Pharmacy 27.1836; Globulin 3.3 g/dL (1.3-4.6); Glucose 121 mg/dL (65-115); Magnesium 2.6 mg/dL (1.7-2.3); Osmolality Calculated 308 mOsm/kg (285-295); Potassium 4.1 mmol/L (3.5-5.1); Sodium 133 mmol/L (136-145); Total Bilirubin 0.8 mg/dL (0.15-1.2)
[2024-06-18 03:14] LABS: Blood Urea Nitrogen 99 mg/dL (8-23)
[2024-06-18] MEDS: heparin 5,000 unit/mL INJ 1 mL 5000 UNIT SUBCUT ×2 (05:22→16:13)
[2024-06-18] MEDS: ascorbic acid 500 mg Tablet 250 MG PO (05:22)
[2024-06-18] MEDS: cyanocobalamin 1,000 mcg Tablet 1000 MCG PO (05:23)
[2024-06-18] MEDS: aspirin 81 mg EC Tablet PO (05:23)
[2024-06-18 07:17] LABS: Glucose Point of Care 154 mg/dL (70-110)
[2024-06-18] MEDS: insulin lispro 100 unit/1 mL SUBCUT ×4 (07:50→22:30)
--- NOTE | 2024-06-18 08:22 | P.PN_ITS ---
Subjective 2 Subjective: The BUN/creatinine continues to walk. Still has significant ascites. Low output state could be a contributing factor. Role of the hepatocellular carcinoma and disease unclear Medications: Medication Review Details: Current Medications Acetaminophen (Acetaminophen 325 Mg Tablet) 650 mg PO Q6H PRN PRN Reason: Mild/Mod Pain Or Temp >/= 101 Albuterol/Ipratropium (Ipratropium-Albuterol 3 Ml Neb) 3 ml INHALATION Q6H.RESP [facility] Last Admin: 06/18/24 02:38 Dose: 3 ml Ascorbic Acid (Ascorbic Acid 500 Mg Tablet) 250 mg PO QAM [facility] Last Admin: 06/18/24 05:22 Dose: 250 mg Aspirin (Aspirin 81 Mg Ec Tablet) 81 mg PO QAM [facility] Last Admin: 06/18/24 05:23 Dose: 81 mg Bisacodyl (Bisacodyl 5 Mg Tablet) 10 mg PO DAILY [facility]; Protocol Last Admin: 06/17/24 08:24 Dose: 10 mg Budesonide (Budesonide 0.5 Mg/2 Ml Neb) 0.5 mg INHALATION BID.RESPIRATORY [facility] Last Admin: 06/17/24 20:43 Dose: 0.5 mg Bumetanide (Bumetanide 1 Mg Tablet) 1 mg PO BID [facility] Last Admin: 06/17/24 17:57 Dose: 1 mg Clopidogrel Bisulfate (Clopidogrel 75 Mg Tablet) 75 mg PO BEDTIME [facility] Last Admin: 06/17/24 20:56 Dose: 75 mg Cyanocobalamin (Cyanocobalamin 1,000 Mcg Tablet) 1,000 mcg PO QAM [facility] Last Admin: 06/18/24 05:23 Dose: 1,000 mcg Diclofenac Sodium (Diclofenac 1% Topical Gel 100 Gm) 4 applic TOPICAL QID PRN PRN Reason: Pain Glucagon (Glucagon 1 Mg/Ml Kit 1 Ml) 1 mg IM ONCE PRN; Protocol PRN Reason: Adult Acute Hypoglycemia Nursing Prot. Heparin Sodium (Porcine) (Heparin 5,000 Unit/Ml Inj 1 Ml) 5,000 unit SUBCUT Q12H [facility] Last Admin: 06/18/24 05:22 Dose: 5,000 unit Hydralazine HCl (Hydralazine 10 Mg Tablet) 10 mg PO TID [facility] Last Admin: 06/17/24 21:46 Dose: Not Given Dextrose (D5w) 500 mls @ 0 mls/hr IV ONCE PRN; Protocol PRN Reason: Adult Acute Hypoglycemia Prot Dextrose (D10w) 125 mls @ 750 mls/hr IV PRN PRN; Protocol PRN Reason: Adult Acute Hypoglycemia Nursing Protocol Dextrose (D10w) 250 mls @ 1,000 mls/hr IV PRN PRN; Protocol PRN Reason: Adult Acute Hypoglycemia Nursing Protocol Insulin Glargine (Insulin Glargine 100 Units/1 Ml) 5 unit SUBCUT BEDTIME [facility] Last Admin: 06/17/24 20:56 Dose: 5 unit Insulin Human Lispro (Insulin Lispro 100 Unit/1 Ml) 0 unit SUBCUT WM&BEDTIME [facility]; Protocol Last Admin: 06/18/24 07:50 Dose: 2 unit Lactulose (Lactulose Oral Liq 20 Gm/30 Ml Udc) 10 gm PO DAILY PRN; Protocol PRN Reason: Constipation (see protocol) Magnesium Hydroxide (Magnesium Hydroxide 30 Ml Udc) 30 ml PO DAILY PRN; Protocol PRN Reason: Constipation (see protocol) Last Admin: 06/16/24 23:39 Dose: 30 ml Metolazone (Metolazone 5 Mg Tablet) 5 mg PO DAILY [facility] Last Admin: 06/17/24 08:24 Dose: 5 mg Metoprolol Tartrate (Metoprolol Tartrate 25 Mg Tablet) 12.5 mg PO BID@0900,2100 [facility] Last Admin: 06/17/24 20:56 Dose: 12.5 mg Morphine Sulfate (Morphine 4 Mg/Ml Sdv 1 Ml) 2 mg IVP Q4H PRN PRN Reason: SEVERE PAIN Ondansetron HCl (Ondansetron 2 Mg/Ml Sdv 2 Ml) 4 mg IVP Q8H PRN PRN Reason: vomiting, or N/V if npo Ondansetron HCl (Ondansetron 2 Mg/Ml Sdv 2 Ml) 4 mg IVP Q2M PRN PRN Reason: NAUSEA Last Admin: 06/17/24 07:36 Dose: 4 mg Pantoprazole Sodium (Pantoprazole 40 Mg Sdv) 40 mg IVP Q24H [facility] Last Admin: 06/17/24 15:08 Dose: 40 mg Vitals/I&O/Wt Last Vital Signs Temp 97.8 F 06/18/24 07:25 Pulse 84 06/18/24 07:25 Resp 18 06/18/24 07:25 BP 112/67 06/18/24 07:25 Pulse Ox 93 06/18/24 07:25 O2 Del Method Nasal Cannula 06/18/24 07:25 O2 Flow Rate 2 06/18/24 04:00 06/17/24 06/18/24 06/18/24 22:59 06:59 14:59 Intake Total 100 / 220 50 / 270 Output Total 325 / 325 450 / 450 Balance -225 / -105 50 / -55 -450 / -450 Weight last 48 hrs Weight 220 lb 4.8 oz Weight 226 lb 14.4 oz Weight 226 lb 14.4 oz Weight 220 lb 8 oz Physical Exam 2 Narrative: GENERAL: The patient is alert and oriented times three. Not in any acute distress. HEENT: No significant pallor, icterus or lymphadenopathy.Oral cavity: There are no mucous membrane lesions. NECK: Trachea appears to be central. No masses noted. No JVD or thyromegaly appreciated. RESPIRATORY: Chest is symmetrical. No intercostals muscle retraction or any accessory muscle activation. There is no chest wall tenderness. Breath sounds are heard bilaterally. No rales or rhonchi heard. No evidence of any consolidation. BREASTS: Deferred. HEART: The heart sounds are normal. No S3 or S4. Short systolic murmur in the lower sternal border. No diastolic murmurs.. No pericardial rub ABDOMEN: No vessel pulsations or distention. No tenderness. No organomegaly appreciated. Bowel sounds are normally heard. Distended with moderate ascites : Deferred. RECTAL: Deferred. LYMPHATIC: No lymphadenopathy noted in the neck. EXTREMITIES: 1-2+ edema both extremities. MUSCULOSKELETAL: No acute joint deformities or swelling SKIN: There are no significant rashes or ecchymosis NEUROPSYCHIATRIC: The patient is alert and oriented x3. Appears to be in a good mood. No tremors or rigidity noted. Urinary Catheter Management: Blair: Cath Placed During This Visit: yes Reason for Continuing Indwelling Catheter: Acute Urinary Retention or Obstruction Urinary Catheter Date of Insertion: 06/12/24 Urinary Catheter Time of Insertion: 14:01 Data 06/18/24 02:30 06/18/24 18:42 Other Labs: Laboratory Last Values WBC 11.71 10^3/uL (3.29-11.43) H 06/18/24 02:30 RBC 3.66 10^6/uL (3.85-5.65) L 06/18/24 02:30 Hgb 9.20 g/dL (11.27-16.99) L 06/18/24 02:30 Hct 29.9 % (37-53) L 06/18/24 02:30 MCV 81.7 fl (82-101) L 06/18/24 02:30 MCH 25.1 pg (27-33) L 06/18/24 02:30 MCHC 30.8 g/dL (30-55) 06/18/24 02:30 RDW 20.8 % (12.1-15.1) H 06/18/24 02:30 Plt Count 249 10^3/cmm (157-399) 06/18/24 02:30 MPV 10.3 fL (7.4-10.4) 06/18/24 02:30 Neut % (Auto) 83.1 % 06/18/24 02:30 Lymph % (Auto) 5.0 % 06/18/24 02:30 [place] % (Auto) 9.0 % 06/18/24 02:30 Eos % (Auto) 2.1 % 06/18/24 02:30 Baso % (Auto) 0.4 % 06/18/24 02:30 Neut # (Auto) 9.72 10^3/uL (1.8-7.7) H 06/18/24 02:30 Lymph # (Auto) 0.6 10^3/uL (0.8-4.8) L 06/18/24 02:30 [place] # (Auto) 1.1 10^3/uL (0.2-0.9) H 06/18/24 02:30 Eos # (Auto) 0.3 10^3/uL (0.0-0.8) 06/18/24 02:30 Baso # (Auto) 0.1 10^3/uL (0.0-0.1) 06/18/24 02:30 Nucleated RBC % (auto) 0 % 06/18/24 02:30 Nucleated RBCs # 0.0 /100WBC 06/18/24 02:30 D-Dimer 2.26 ug/mLFEU (0-0.59) H 06/12/24 10:49 Sodium 130 mmol/L (136-145) L 06/18/24 18:42 Potassium 3.6 mmol/L (3.5-5.1) 06/18/24 18:42 Chloride 87 mmol/L (98-107) L 06/18/24 18:42 Carbon Dioxide 27 mmol/L (22-29) 06/18/24 18:42 Anion Gap 19.6 (5-19) H 06/18/24 18:42 BUN 102 mg/dL (8-23) H* 06/18/24 18:42 Creatinine 2.8 mg/dL (0.7-1.2) H 06/18/24 18:42 GFR Calculation Not Reportable 06/18/24 18:42 Glucose 260 mg/dL (65-115) H 06/18/24 18:42 POC Glucose 209 mg/dL (70-110) H 06/18/24 21:25 Estimat Average Glucose 123 06/13/24 04:15 Hemoglobin A1c 5.9 % (4.0-6.0) 06/13/24 04:15 Calculated Osmolality 311 mOsm/kg (285-295) H 06/18/24 18:42 Lactic Acid 1.9 mmol/L (0.5-2.2) 06/12/24 10:49 Calcium 8.7 mg/dL (8.5-10.5) 06/18/24 18:42 Phosphorus 5.0 mg/dL (2.5-4.5) H 06/13/24 04:15 Magnesium 2.6 mg/dL (1.7-2.3) H 06/18/24 02:30 Iron 35 ug/dL (59-158) L 06/12/24 10:49 TIBC 288 mcg/dl 06/12/24 10:49 % Saturation 12.1 % (20-50) L 06/12/24 10:49 Unsat Iron Binding 253 ug/dL (112-347) 06/12/24 10:49 Total Bilirubin 0.8 mg/dL (0.15-1.2) 06/18/24 02:30 AST 45 U/L (0-40) H 06/18/24 02:30 ALT 31 U/L (0-41) 06/18/24 02:30 Alkaline Phosphatase 192 U/L (40-130) H 06/18/24 02:30 Troponin T Baseline 68 ng/L (0-15) H 06/12/24 10:49 Troponin T Hi Sens 6Hr 55.98 ng/L (0-15) H 06/12/24 17:46 Troponin T Hi Sens 6Hr Delta -12.02 ng/L (0-12) L 06/12/24 17:46 NT-Pro-B Natriuret Pep 76471 pg/mL (0-125) H 06/12/24 10:49 Total Protein 7.0 g/dL (6.6-8.7) 06/18/24 02:30 Albumin 3.7 g/dL (3.5-5.2) 06/18/24 02:30 Globulin 3.3 g/dL (1.3-4.6) 06/18/24 02:30 Triglycerides 46 mg/dL (0-150) 06/13/24 04:15 Cholesterol 88 mg/dL (0-200) 06/13/24 04:15 LDL Cholesterol, Calc 42 mg/dL (50-129) L 06/13/24 04:15 HDL Cholesterol 37 mg/dL (60-100) L 06/13/24 04:15 LDL/HDL Ratio 1.14 RATIO (0.00-3.22) 06/13/24 04:15 Cholesterol/HDL Ratio 2.38 mg/dL (1.0-5.00) 06/13/24 04:15 Vitamin B12 1965 pg/mL (232-1245) H 06/12/24 10:49 Folate 9.5 ng/mL (4.5-32.2) 06/13/24 04:15 Procalcitonin 0.36 ng/mL (0-0.5) 06/13/24 04:15 TSH 2.85 uIU/mL (0.27-4.20) 06/12/24 10:49 Random Cortisol 12.39 ug/dL (2.47-19.5) 06/14/24 03:57 Urine Color Yellow (Yellow) 06/12/24 17:00 Urine Appearance Slightly cloudy (CLEAR) 06/12/24 17:00 Urine pH 5 (5-7) 06/12/24 17:00 Ur Specific [place] 1.010 (1.005-1.030) 06/12/24 17:00 Urine Protein 1+ (Negative) H 06/12/24 17:00 Urine Glucose (UA) Norm (Normal) 06/12/24 17:00 Urine Ketones Negative (Negative) 06/12/24 17:00 Urine Blood 3+ (Negative) H 06/12/24 17:00 Urine Nitrate Negative (Negative) 06/12/24 17:00 Urine Bilirubin Neg (Negative) 06/12/24 17:00 Urine Urobilinogen Norm mg/dL (Negative) 06/12/24 17:00 Ur Leukocyte Esterase 1+ (Negative) H 06/12/24 17:00 Urine RBC >100 /hpf (0-2) H 06/12/24 17:00 Urine WBC 0-4 /hpf (0-5) H 06/12/24 17:00 Ur Squamous Epith Cells None /hpf (0-5) 06/12/24 17:00 Amorphous Sediment Not Reportable 06/12/24 17:00 Urine Bacteria Trace /hpf (NONE) 06/12/24 17:00 Hyaline Casts 0-4 /lpf H 06/12/24 17:00 Ur Random Sodium 52 mmol/L 06/12/24 17:00 Ur Random Potassium 43 mmol/L 06/12/24 17:00 Ur Random Chloride 73 mmol/L 06/12/24 17:00 Urine Creatinine 32 mg/dL (39-259) L 06/12/24 17:00 Nasal MRSA (PCR) Not detected ` (Negative) 06/12/24 17:43 Urine Opiates Screen Negative ng/mL (Negative) 06/12/24 17:00 Ur Barbiturates Screen Negative ng/mL (Negative) 06/12/24 17:00 Ur Phencyclidine Scrn Negative ng/mL (Negative) 06/12/24 17:00 Ur Amphetamines Screen Negative ng/mL (Negative) 06/12/24 17:00 U Benzodiazepines Scrn Negative ng/mL (Negative) 06/12/24 17:00 Urine Cocaine Screen Negative ng/mL (Negative) 06/12/24 17:00 U Marijuana (THC) Screen Negative ng/mL (Negative) 06/12/24 17:00 MRSA (PCR) Cancelled 06/12/24 Unknown Micro: Microbiology 06/12/24 14:32 Blood Culture - Final Blood NO GROWTH AFTER 5 DAYS 06/12/24 14:28 Blood Culture - Final Blood NO GROWTH AFTER 5 DAYS A&P Assessment and plan (1) Acute on chronic systolic heart failure: Patient may have a low output state, making the kidney function worse. It might be worthwhile at this point to give a trial of IV Dobutrex to see whether that improves the cardiac output and the urine output. I may start with a 2.5 mics per KG per minute and go up to 5 mics per KG per minute. Based on the clinical response, further recommendations will be made. (2) Atherosclerosis of coronary artery of [place] heart without angina pectoris: Patient had the last coronary angiogram in 2021. The Myocardial perfusion imaging revealed only a small area of ischemia. Based on the findings, it would be appropriate to continue the medical treatment at this point. This was discussed with the patient and the family in detail. Shared decision was made to continue the medical treatment. Qualifiers: Coronary Disease-Associated Artery/Lesion type: [place] artery Qualified Code(s): I25.10 - Atherosclerotic heart disease of [place] coronary artery without angina pectoris (3) Ascites: Part of it could be with heart failure. The hepatocellular carcinoma also might be playing a role. This may need to be looked into. Discussed with the Dr. Smith. It was decided to try the Dobutrex as mentioned above Qualifiers: Ascites type: other type Qualified Code(s): R18.8 - Other ascites (4) Hyperlipidemia: May continue on the current management. Qualifiers: Hyperlipidemia type: mixed hyperlipidemia Qualified Code(s): E78.2 - Mixed hyperlipidemia (5) Hypotension: Currently the blood pressure has improved. Qualifiers: Hypotension type: other hypotension type Qualified Code(s): I95.89 - Other hypotension (6) Diabetes: Aggressive management of the diabetes would be appropriate. The blood sugar seems to fairly under control. Qualifiers: Diabetes mellitus complication status: without complication Diabetes mellitus halfway insulin use: without terminologist use Diabetes mellitus type: t ype 2 Qualified Code(s): E11.9 - Type 2 diabetes mellitus without complications (7) Acute on chronic renal failure: Worsening BUN/creatinine as mentioned above possibly from the low output state Qualifiers: Acute renal failure type: with other specified pathological lesion C hronic kidney disease stage: stage 2 (mild) Qualified Code(s): N17.8 - Other acute kidney failure; N18.2 - Chronic kidney disease, stage 2 (mild) Plan The other problems are Peripheral arterial disease COPD Hepatocellular carcinoma History of pancreatitis/pancreatic cyst Will repeat the BMP in the morning. Telemetry will be closely watched for the development of any new arrhythmias or atrial fibrillation with the rapid ventricular rate. Based on the clinical response, further management decisions will be made. Attestations 2 Medical Necessity Statement*: Patient requires continued hospital stay for close monitoring and further management Coding Level of Care Code 23628 Diagnoses Acute on chronic systolic heart failure I50.23 Atherosclerosis of [place] coronary artery of [place] heart without angina pectoris I25.10 Coronary Disease-Associated Artery/Lesion type: [place] artery Other ascites R18.8 Ascites type: other type Mixed hyperlipidemia E78.2 Hyperlipidemia type: mixed hyperlipidemia Other specified hypotension I95.89 Hypotension type: other hypotension type Type 2 diabetes mellitus without complication, without long-term current use of insulin E11.9 Diabetes mellitus complication status: without complication Diabetes mellitus terminologist insulin use: without halfway use Diabetes mellitus type: type 2 Acute renal failure with other specified pathological kidney lesion superimposed on stage 2 chronic kidney disease N17.8; N18.2 Acute renal failure type: with other specified pathological lesion Chronic kidney disease stage: stage 2 (mild)
[2024-06-18] MEDS: budesonide 0.5 mg/2 mL Neb INHALATION ×2 (08:36→19:48)
[2024-06-18 09:03] LABS: Basophils # 0.1 10^3/uL (0.0-0.1); Basophils % 0.4 %; Eosinophils # 0.3 10^3/uL (0.0-0.8); Eosinophils % 2.1 %; Hematocrit 29.9 % (37-53); Lymphocytes # 0.6 10^3/uL (0.8-4.8); Mean Corpuscular HGB Conc 30.8 g/dL (30-55); Mean Corpuscular Hemoglobin 25.1 pg (27-33); Mean Corpuscular Volume 81.7 fl (82-101); Mean Platelet Volume 10.3 fL (7.4-10.4); Monocytes # 1.1 10^3/uL (0.2-0.9); Neutrophils # 9.72 10^3/uL (1.8-7.7); Neutrophils % 83.1 %; Nucleated Red Blood Cells % 0 %; Platelet Count 249 10^3/cmm (157-399); Red Blood Count 3.66 10^6/uL (3.85-5.65); Red Cell Distribution Width 20.8 % (12.1-15.1); White Blood Count 11.71 10^3/uL (3.29-11.43)
[2024-06-18] MEDS: metoprolol tartrate 25 mg Tablet 12.5 MG PO ×2 (09:50→22:29)
[2024-06-18] MEDS: bisacodyl 5 mg Tablet 10 MG PO (09:50)
[2024-06-18 11:48] LABS: Glucose Point of Care 223 mg/dL (70-110)
[2024-06-18] MEDS: DOBUTamine drip 500 MG/250 ML PREMIX 7.49 MG IV (13:29)
[2024-06-18] MEDS: bumetanide 0.25 mg/mL SDV 4 mL 1 MG IVP (13:30)
--- NOTE | 2024-06-18 14:43 | P.CONIM_ITS ---
Providers/Reason For Consult 2 Consulting Physician/Specialty*: kommana/nEPHROLOGY Reason for Consult*: Acute on CKD Attending Physician: Ben Smith MD Primary Care Provider: ABDULLAHI Matta History of Present Illness History of Present Illness Torey Kaba is a 74 year old male patient is a 74-year-old male with past medical history of coronary artery disease status post CABG, hypertension, diabetes, chronic kidney disease with a baseline creatinine of 1.5-2 range, followed by nephrology Dr. Carpio as outpatient. He presented to the emergency department with shortness of breath increased weight gain and worsening lower extremity edema. Also reported that his blood pressures were running in the 90s systolic at home. Patient was thought to be in cardiogenic shock he was started on Levophed, echocardiogram showed ejection fraction of 25% and received IV diuresis. He underwent stress test today. That showed small area of ischemia. Review of Systems 2 Narrative: Other review of systems negative Medications/Allergies Home Medications Medication Instructions Recorded Confirmed Last Taken Type aspirin 81 mg tablet,delayed 81 mg PO QAM 01/02/21 06/12/24 06/12/24 History release albuterol sulfate 90 mcg/actuation 2 puff inhalation Q6H PRN 01/25/21 06/12/24 07/27/22 06:00 History aerosol inhaler (ProAir HFA) Shortness Of Breath Or Wheezing clopidogrel 75 mg tablet 75 mg PO BEDTIME 01/25/21 06/12/24 06/11/24 History fluticasone propionate 50 1 spray intranasal BID 04/20/21 06/12/24 06/11/24 History mcg/actuation nasal spray,suspension (Allergy Relief (fluticasone)) lovastatin 40 mg tablet 20 mg PO BEDTIME 04/20/21 06/12/24 06/11/24 History methocarbamol 750 mg tablet 750 mg PO Q12H PRN Muscle Pain 04/20/21 06/12/24 05/23/21 19:30 History furosemide 40 mg tablet 40 mg PO BID PRN Edema 07/15/21 06/12/24 06/12/24 History dextromethorphan-guaifenesin 10 1 tab-cap PO Q4H PRN Cold Symptoms 11/29/21 06/12/24 Unknown History mg-200 mg capsule (Coricidin HBP Chest Congestion-Cough) ascorbate calcium (vitamin C) 500 500 mg PO QAM 07/05/22 06/12/24 06/12/24 History mg tablet magnesium oxide 400 mg PO QAM 07/05/22 06/12/24 06/12/24 History Diabetic shoes With 3 Inserts #1 ea 05/12/23 06/12/24 Unknown Rx ammonium lactate 12 % lotion 1 applic topical DAILY PRN unknown 08/13/23 06/12/24 Unknown History cholecalciferol (vitamin D3) 10 400 unit PO QAM 08/13/23 06/12/24 06/12/24 History mcg (400 unit) tablet (Vitamin D3) cyanocobalamin (vitamin B-12) 1,000 mcg PO QAM 08/13/23 06/12/24 06/12/24 History 1,000 mcg tablet (Vitamin B-12) diclofenac sodium 1 % topical gel 2 g topical QID PRN Pain 08/13/23 06/12/24 06/11/24 History fluticasone 250 mcg-salmeterol 50 1 inh inhalation BID 08/13/23 06/12/24 06/12/24 History mcg/dose blistr powdr for inhalation (Wixela Inhub) guaifenesin 600 mg tablet, 1,200 mg PO Q12H PRN Congestion 08/13/23 06/12/24 Unknown History extended release 12 hr (Mucinex) isosorbide mononitrate 30 mg 30 mg PO QAM 08/13/23 06/12/24 06/12/24 History tablet,extended release 24 hr lactase 3,000 unit tablet (Lactaid) 3,000 unit PO QID PRN dairy allergy 08/13/23 06/12/24 Unknown History valsartan 160 mg tablet See Rx Instructions .Route .COMPLEX 08/13/23 06/12/24 06/12/24 History vitamin E 268 mg (400 unit) capsule 1 cap PO QAM 08/13/23 06/12/24 06/12/24 History potassium chloride 10 mEq 10 meq PO DAILY PRN Edema 09/20/23 06/12/24 06/12/24 History tablet,extended release insulin aspart U-100 100 unit/mL See Rx Instructions .Route 12/08/23 06/12/24 Unknown History (3 mL) subcutaneous pen (Novolog .COMPLEX PRN blood sugar FlexPen U-100 Insulin aspart) metformin 1,000 mg tablet 500 mg PO BID PRN Pain 12/08/23 06/12/24 06/12/24 History glipizide 5 mg tablet 5 mg PO DAILY Diabetie 01/03/24 06/12/24 06/12/24 History nitroglycerin 0.4 mg sublingual 0.4 mg sublingual Q5M PRN Chest 01/22/24 06/12/24 Unknown Rx tablet (Nitrostat) Pain #30 tabs metolazone 5 mg tablet 5 mg PO DAILY #10 tabs 03/21/24 06/12/24 Unknown Rx insulin glargine 100 unit/mL 25 unit SUBCUT BID 04/03/24 06/12/24 06/12/24 History subcutaneous solution (Lantus U-100 Insulin) carvedilol 25 mg tablet 25 mg PO BID 06/12/24 06/12/24 Unknown History hydralazine 25 mg tablet 25 mg PO BID 06/12/24 06/12/24 06/12/24 History sulfasalazine 500 mg tablet 500 mg PO BID 06/12/24 06/12/24 Unknown History Allergies Allergy/AdvReac Type Severity Reaction Status Date / Time clindamycin Allergy Severe ADR/ALGY-Pa Verified 06/12/24 17:09 lpitations lactose Allergy Mild ADR-Abdominal Verified 04/03/24 10:02 Pain montelukast Allergy Mild dyspnea Verified 04/03/24 10:02 apricot Allergy Unknown Verified 04/03/24 10:02 Penicillins Allergy Unknown Verified 04/03/24 10:02 Current Medications Generic Name Dose Route Start Last Admin Trade Name Haq PRN Reason Stop Dose Admin Albuterol/Ipratropium 3 ml 06/12/24 15:57 06/18/24 08:36 Ipratropium-Albuterol 3 Ml Neb INHALATION 3 ml Q6H.RESP NIDHI Administration Ascorbic Acid 250 mg 06/16/24 06:00 06/18/24 05:22 Ascorbic Acid 500 Mg Tablet PO 250 mg QAM NIDHI Administration Aspirin 81 mg 06/13/24 06:00 06/18/24 05:23 Aspirin 81 Mg Ec Tablet PO 81 mg QAM NIDIH Administration Bisacodyl 10 mg 06/15/24 10:30 06/18/24 09:50 Bisacodyl 5 Mg Tablet PO 10 mg DAILY NIDHI Administration Protocol Budesonide 0.5 mg 06/12/24 20:00 06/18/24 08:36 Budesonide 0.5 Mg/2 Ml Neb INHALATION 0.5 mg BID.RESPIRATORY NIDHI Administration Bumetanide 1 mg 06/18/24 13:00 06/18/24 13:30 Bumetanide 0.25 Mg/Ml Sdv 4 Ml IVP 1 mg Q12H NIDHI Administration Clopidogrel Bisulfate 75 mg 06/12/24 21:00 06/17/24 20:56 Clopidogrel 75 Mg Tablet PO 75 mg BEDTIME NIDHI Administration Cyanocobalamin 1,000 mcg 06/16/24 06:00 06/18/24 05:23 Cyanocobalamin 1,000 Mcg Tablet PO 1,000 mcg QAM NIDHI Administration Heparin Sodium (Porcine) 5,000 unit 06/12/24 15:57 06/18/24 05:22 Heparin 5,000 Unit/Ml Inj 1 Ml SUBCUT 5,000 unit Q12H NIDHI Administration Dobutamine HCl/Dextrose 500 mg in 250 mls @ 0 mls/hr 06/18/24 13:00 06/18/24 13:29 Dobutamine Drip IV 2.5 mcg/kg/min .Q0M NIDHI 7.49 mls/hr Administration As Directed Insulin Glargine 5 unit 06/14/24 21:00 06/17/24 20:56 Insulin Glargine 100 Units/1 Ml SUBCUT 5 unit BEDTIME NIDHI Administration Insulin Human Lispro 0 unit 06/12/24 18:00 06/18/24 12:00 Insulin Lispro 100 Unit/1 Ml SUBCUT 6 unit WM&BEDTIME NIDHI Administration Protocol Magnesium Hydroxide 30 ml 06/12/24 15:57 06/16/24 23:39 Magnesium Hydroxide 30 Ml Udc PO 30 ml DAILY PRN Administration Constipation (see protocol) Protocol Metoprolol Tartrate 12.5 mg 06/15/24 09:35 06/18/24 09:50 Metoprolol Tartrate 25 Mg Tablet PO 12.5 mg BID@0900,2100 NIDHI Administration Ondansetron HCl 4 mg 06/17/24 06:20 06/17/24 07:36 Ondansetron 2 Mg/Ml Sdv 2 Ml IVP 4 mg Q2M PRN Administration NAUSEA Pantoprazole Sodium 40 mg 06/12/24 15:57 06/17/24 15:08 Pantoprazole 40 Mg Sdv IVP 40 mg Q24H NIDHI Administration PFSH Acute 2 PFSH: Medical History (Updated 06/17/24 @ 17:21 by Ben Smith MD) Ischemic heart disease due to coronary artery obstruction Chronic systolic (congestive) heart failure Ischemic cardiomyopathy Sacroiliac dysfunction CKD (chronic kidney disease) Arthralgia Anemia Umbilical hernia, incarcerated Acute kidney injury Normochromic normocytic anemia Atherosclerosis of coronary artery of teller heart without angina pectoris Sepsis Pleural effusion Community acquired pneumonia NSTEMI (non-ST elevated myocardial infarction) CHF exacerbation Restrictive lung disease Pneumonia Pancreatic cyst Pancreatitis Diabetes Hyperlipidemia Hypertension COPD (chronic obstructive pulmonary disease) Surgical History H/O esophagogastroduodenoscopy Hx of CABG History of coronary angioplasty with insertion of stent History of colonoscopy with polypectomy Family History Brother CAD (coronary artery disease) Diabetes Lung disease Sister CAD (coronary artery disease) Diabetes Cancer Lung disease Father CAD (coronary artery disease) Diabetes Lung disease Mother CAD (coronary artery disease) Diabetes Stroke Brother CAD (coronary artery disease) Diabetes Lung disease Brother CAD (coronary artery disease) Diabetes Sister CAD (coronary artery disease) Diabetes Lung disease Sister CAD (coronary artery disease) Diabetes Sister CAD (coronary artery disease) Diabetes Daughter Chronic kidney disease (CKD) Diabetes Denies family history of Clotting disorder Dementia Suicide Anesthesia complication Bleeding disorder Social History Smoking and tobacco/nicotine status: former use of tobacco/nicotine Quit status (tobacco/nicotine): has quit using Year quit tobacco: 1983 [id number] Second hand smoke exposure: No Alcohol intake: former Substance/Drug Use: never Adopted: No Caregiver/support person: Yes Lives independently: Yes Household members: spouse Housing: House Marital status: service: Yes Current occupational status: retired Pets and animals: No Leisure activites: exercise Sexually active: No Do you think of yourself as: Straight/Heterosexual Current gender identity: Male Mayra/Pentecostal: Nondenominational Special mayra needs: No Agree to transfusion: No Vitals/I&O/Wt Last Vital Signs Temp 97.8 F 06/18/24 11:21 Pulse 94 06/18/24 11:21 Resp 19 H 06/18/24 11:21 BP 102/63 06/18/24 11:21 Pulse Ox 91 06/18/24 11:21 O2 Del Method Nasal Cannula 06/18/24 11:21 O2 Flow Rate 2 06/18/24 08:36 06/17/24 06/18/24 06/18/24 22:59 06:59 14:59 Intake Total 100 / 220 50 / 270 240 / 240 Output Total 325 / 325 700 / 700 Balance -225 / -105 50 / -55 -460 / -460 Weight last 48 hrs Weight 99.926 kg Weight 102.92 kg Weight 102.92 kg Physical Exam 2 Narrative: awake , alert , No distress HEENT S1S2 RRR per report Lungs clear per report No edema Urinary Catheter Management: Blair: Cath Placed During This Visit: yes Reason for Continuing Indwelling Catheter: Acute Urinary Retention or Obstruction Urinary Catheter Date of Insertion: 06/12/24 Urinary Catheter Time of Insertion: 14:01 Data 06/18/24 02:30 06/18/24 18:42 Micro: Microbiology 06/12/24 14:32 Blood Culture - Final Blood NO GROWTH AFTER 5 DAYS 06/12/24 14:28 Blood Culture - Final Blood NO GROWTH AFTER 5 DAYS A&P Assessment and plan (1) Ischemic cardiomyopathy: (2) Acute on chronic renal failure: 1. Acute on chronic kidney disease: Patient's baseline creatinine is in the 1.5-2 range, followed by Dr. Carpio from nephrology as outpatient. Patient now has WHIT in the setting of cardiogenic shock, on diuretics and inotropes. Patient's renal function is currently stable, though creatinine is above baseline. Noted patient has uremia, continue to monitor for now. 2 g sodium restriction and 1500 mL fluid restriction If uremia continues to get worse, will hold diuretics temporarily -No acute indication for dialysis 2. Ischemic cardiomyopathy: Ejection fraction 45%, on diuretics and management cardiology 3. Hyponatremia: Likely hypervolemic, monitor 4. Anemia: Hemoglobin 9.2, monitor, CARLOS as outpatient Patient evaluated using audiovisual cart. Time spent 40 minutes. - Qualifiers: Acute renal failure type: with other specified pathological lesion C hronic kidney disease stage: stage 2 (mild) Qualified Code(s): N17.8 - Other acute kidney failure; N18.2 - Chronic kidney disease, stage 2 (mild) Consult Attestations 2 Medical Necessity Statement: per [facility] team Coding Level of Care Code Acute Code for [facility] Fwd Diagnoses Ischemic cardiomyopathy I25.5 Acute renal failure with other specified pathological kidney lesion superimposed on stage 2 chronic kidney disease N17.8; N18.2 Acute renal failure type: with other specified pathological lesion Chronic kidney disease stage: stage 2 (mild)
--- NOTE | 2024-06-18 15:17 | PM.PN ---
Subjective Subjective: Patient was seen this morning, he is sitting up to the side of the bed, does complain of shortness of breath with exertion, but does feel better compared to yesterday, no chest pain does report increased abdominal distention but no abdominal pain, does have increased lower extremity edema he reports a history of hepatocellular carcinoma, he has a history of radiation pellets in October, the last time he saw his oncologist in [facility] he was told that his cancer was stable and he was at 2 cm, he is never had paracentesis, or ascites from his liver cancer, he has never been told that he has liver failure, we discussed his creatinine of 3.0, his BUN of 99, urine output overnight was 700 cc, he is 6 L negative, discussed my worry with his diminished ejection fraction to his declining kidney function, if persistent fluid overload, will consult nephrology, spoke to cardiology, plan on placing on dobutamine drip to help with cardiac output, continue with diuresis, will get nephrology's input Vitals/I&O/Wt Last Vital Signs Temp 97.8 F 06/18/24 11:21 Pulse 94 06/18/24 11:21 Resp 19 H 06/18/24 11:21 BP 102/63 06/18/24 11:21 Pulse Ox 91 06/18/24 11:21 O2 Del Method Nasal Cannula 06/18/24 11:21 O2 Flow Rate 2 06/18/24 08:36 06/18/24 06/18/24 06/18/24 06:59 14:59 22:59 Intake Total 50 / 270 240 / 240 Output Total 700 / 700 Balance 50 / -55 -460 / -460 Weight last 48 hrs Weight 99.926 kg Weight 102.92 kg Weight 102.92 kg Physical Exam Const: COMMON NORMALS: no acute distress and patient oriented x3 Resp: COMMON NORMALS: normal respiratory effort, No retractions and No use of accessory muscles AUSCULTATION: crackles Cardio: COMMON NORMALS: regular rate, regular rhythm, S1 normal heart sound present and S2 normal heart sound present RATE: regular rate RHYTHM: regular rhythm HEART SOUNDS: S1 normal heart sound present and S2 normal heart sound present GI: COMMON NORMALS: Normal to inspection, nondistended, normoactive bowel sounds present and non-tender OTHER: Increased abdominal distention, fluid wave present Extremity: COMMON NORMALS: no pedal edema Neuro: COMMON NORMALS: patient oriented x3 Psych: COMMON NORMALS: mental status grossly normal Urinary Catheter Management: Blair: Cath Placed During This Visit: yes Reason for Continuing Indwelling Catheter: Acute Urinary Retention or Obstruction Urinary Catheter Date of Insertion: 06/12/24 Urinary Catheter Time of Insertion: 14:01 Data 06/18/24 02:30 06/18/24 02:30 Micro: Microbiology 06/12/24 14:32 Blood Culture - Final Blood NO GROWTH AFTER 5 DAYS 06/12/24 14:28 Blood Culture - Final Blood NO GROWTH AFTER 5 DAYS A&P Assessment and plan (1) Acute on chronic renal failure: Baseline CKD stage IIIb Baseline creatinine 1.7. He had an up to 3 Elevated creatinine due to soft blood pressures and or diuresis and/or cardiorenal syndrome Blair catheterization. Strict input output charting. Appreciate urine lites with urine sodium of 52 and creatinine of 32. Fena?3.1 consistent with intrinsic pathology. CT abdomen pelvis negative for obstructive nephropathy. Will plan to keep mean arterial pressure around 65. start dobutamin drip Bumex 1mg q12hrs order renal ultrasound Qualifiers: Acute renal failure type: with other specified pathological lesion Chronic kidney disease stage: stage 2 (mild) Qualified Code(s): N17.8 - Other acute kidney failure; N18.2 - Chronic kidney disease, stage 2 (mild) (2) Cardiogenic shock: Blood pressure have been gradually decreasing, hold hydralazine (3) Chronic systolic (congestive) heart failure: CONCLUSIONS Dilated left-ventricular with a thinned out septum. Severe diffuse hypokinesia with an ejection fraction of 25%. Grade III/IV diastolic dysfunction (restrictive filling pattern), severely elevated filling pressures. Dilated right ventricle with a moderately diminished ejection fraction. Moderate biatrial enlargement Moderate-severe mitral valve regurgitation. Minimally thickened aortic valve. Mild tricuspid valve regurgitation. Estimated pulmonary artery peak systolic pressure 40 mmHg. Moderate pulmonary valve regurgitation. There is no pericardial effusion. There are no intracardiac masses. Compared to the study from 08/13/2023, there is significant drop in the LV ejection fraction from 45% to 25% Strict input and output charting, daily weights. Bumex as above Start dobutamine drip. Last angiogram from July 2022 showed patent [place]ROY to LAD and venous graft to PDA with total occlusion of venous graft to obtuse marginal and diagonal arteries with severely elevated diastolic pressures for which medical treatment was opted. (4) Ischemic cardiomyopathy: Last angiogram from July 2022 showed patent CONROY to LAD and venous graft to PDA with total occlusion of venous graft to obtuse marginal and diagonal arteries with severely elevated diastolic pressures for which medical treatment was opted. Denies any current chest pain. For now continue with home dose of aspirin, Plavix. Stress test IMPRESSIONS 1. Myocardial perfusion imaging revealing extensive areas of myocardial scarring mostly in the distribution of all 3 coronary arteries more so in the distribution of the left anterior descending artery and circumflex artery with subtle areas of ischemia mostly in th circumflex artery distribution. 2. Markedly diminished LV ejection fraction of 16%. 3. Segmental wall motion analysis revealing severe diffuse hypokinesia of the left ventricle. 4. Markedly dilated LV cavity with an end-systolic volume of 237 mL Compared to the study from 07/18/2022, the ischemic burden appears to be much less(the summed score difference of 11 versus 2). The LV ejection fraction appears to be has any fairly decreased with a significant enlargement of the left ventricle. These features may suggest extensive reverse remodeling. 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 A1c of 5.9. Due to abdominal distention, had evidence of mild to moderate ascites on admission, repeat ultrasound of the abdomen, CODE STATUS: Discussed detail with the patient. with the DPOA. Full code Renal nondialysis diabetic diet Protonix for PUD prophylaxis Heparin for DVT prophylaxis Plan for today spoke to cardiology, spoke to nephrology, start reviewing drip, IV Bumex, continues to be fluid overloaded creatinine up to 3, Attestations Medical Necessity Statement*: Patient requires hospitalization for cardiomyopathy, CHF, WHIT Diagnoses Acute renal failure with other specified pathological kidney lesion superimposed on stage 2 chronic kidney disease N17.8; N18.2 Acute renal failure type: with other specified pathological lesion Chronic kidney disease stage: stage 2 (mild) Cardiogenic shock R57.0 Chronic systolic (congestive) heart failure I50.22 Ischemic cardiomyopathy I25.5 Other specified hypotension I95.89 Hypotension type: other hypotension type 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
--- NOTE | 2024-06-18 15:47 | US_ITS ---
WS: [id number] RENAL ULTRASOUND HISTORY: reji COMPARISON: 05/06/2021, 04/26/2023 TECHNIQUE: 2-D and color Doppler imaging of the kidney submitted. Limited evaluation of the kidneys. Right kidney: 10.3 cm x 5.4 cm x 5.1 cm. Cortex: 1.5 cm Normal size kidney. Reidentified is the mass associated with the upper pole measuring 16 x 20 x 12 mm . There are a few low-level echoes today which are probably artifact. This was noted to be a cyst on prior studies. No solid mass. Left kidney: 12.3 cm x 6.5 cm x 5.6 cm. Cortex: 1.8 cm Limited evaluation due to body habitus. No abnormality seen. Aorta: Not visualized. Urinary Bladder: Nondistended. Blair catheter is present. US/US renal BI* [id number] IMPRESSION: 1. Limited evaluation of the kidneys due to body habitus. 2. No hydronephrosis. 3. Stable cyst upper pole RIGHT kidney.
[2024-06-18] MEDS: Fleet Enema 133 mL Enema PR (16:12)
[2024-06-18] MEDS: polyethylene glycol 3350 Pkt 17 gm PO (16:12)
[2024-06-18] MEDS: pantoprazole 40 mg SDV IVP (16:13)
--- NOTE | 2024-06-18 16:33 | PC.NURSE ---
received order from dr whiteside to increase dobutamine to 5mcg/kg/min.pt is tolerating dobutamine well.
[2024-06-18 17:22] LABS: Glucose Point of Care 307 mg/dL (70-110)
--- NOTE | 2024-06-18 18:55 | PC.NURSE ---
fleets enema given.return of small amt hard brown stool.pt tolerated procedure well
[2024-06-18 19:15] LABS: Calcium 8.7 mg/dL (8.5-10.5); Carbon Dioxide 27 mmol/L (22-29); Chloride 87 mmol/L (98-107); Creatinine Clr Calc Pharmacy 28.7214; Glucose 260 mg/dL (65-115); Osmolality Calculated 311 mOsm/kg (285-295); Sodium 130 mmol/L (136-145)
[2024-06-18 19:21] LABS: Anion Gap 19.6 (5-19); Blood Urea Nitrogen 102 mg/dL (8-23); Potassium 3.6 mmol/L (3.5-5.1)
[2024-06-18 21:31] LABS: Glucose Point of Care 209 mg/dL (70-110)
[2024-06-18] MEDS: clopidogrel 75 mg Tablet PO (22:30)
[2024-06-18] MEDS: insulin glargine 100 units/1 mL 5 UNIT SUBCUT (22:31)
[2024-06-19] VITALS (31 sets, daily range): BP systolic 104–146; BP diastolic 56–78; PULSE 86–978; RESP 8–28; TEMP 36.4–37.2; O2SAT 86–98
[2024-06-19] MEDS: bumetanide 0.25 mg/mL SDV 4 mL 1 MG IVP ×2 (01:28→12:27)
[2024-06-19] MEDS: ipratropium-albuterol 3 mL Neb INHALATION ×4 (01:57→20:27)
[2024-06-19] MEDS: heparin 5,000 unit/mL INJ 1 mL 5000 UNIT SUBCUT ×2 (03:50→15:40)
[2024-06-19] MEDS: polyethylene glycol 3350 Pkt 17 gm PO ×2 (03:50→15:40)
[2024-06-19 04:24] LABS: Basophils % 0.4 %; Eosinophils # 0.3 10^3/uL (0.0-0.8); Eosinophils % 3.1 %; Hematocrit 28.5 % (37-53); Lymphocytes # 0.5 10^3/uL (0.8-4.8); Lymphocytes % 4.6 %; Mean Corpuscular HGB Conc 30.9 g/dL (30-55); Mean Corpuscular Hemoglobin 25.1 pg (27-33); Mean Corpuscular Volume 81.2 fl (82-101); Mean Platelet Volume 9.7 fL (7.4-10.4); Monocytes % 9.6 %; Neutrophils # 8.45 10^3/uL (1.8-7.7); Neutrophils % 81.8 %; Nucleated Red Blood Cells % 0 %; Platelet Count 203 10^3/cmm (157-399); Red Blood Count 3.51 10^6/uL (3.85-5.65); Red Cell Distribution Width 20.6 % (12.1-15.1); White Blood Count 10.32 10^3/uL (3.29-11.43)
[2024-06-19 04:40] LABS: Lactate (Lactic Acid level) 1.3 mmol/L (0.5-2.2)
[2024-06-19 04:41] LABS: Alanine Aminotransferase 24 U/L (0-41); Albumin Level 3.5 g/dL (3.5-5.2); Alkaline Phosphatase 156 U/L (40-130); Anion Gap 19.2 (5-19); Aspartate Amino Transferase 25 U/L (0-40); Calcium 8.8 mg/dL (8.5-10.5); Carbon Dioxide 29 mmol/L (22-29); Chloride 89 mmol/L (98-107); Creatinine Clr Calc Pharmacy 30.9307; Globulin 3.3 g/dL (1.3-4.6); Glucose 179 mg/dL (65-115); Osmolality Calculated 313 mOsm/kg (285-295); Potassium 3.2 mmol/L (3.5-5.1); Sodium 134 mmol/L (136-145); Total Bilirubin 0.8 mg/dL (0.15-1.2); Total Protein 6.8 g/dL (6.6-8.7)
[2024-06-19 04:51] LABS: Magnesium 2.4 mg/dL (1.7-2.3); NT Pro B Type Natriuretic Pept 25054 pg/mL (0-125)
[2024-06-19 04:54] LABS: Blood Urea Nitrogen 97 mg/dL (8-23)
--- NOTE | 2024-06-19 05:40 | P.PN_ITS ---
Subjective 2 Subjective: no new c/o Medications: Reviewed: Yes Vitals/I&O/Wt Last Vital Signs Temp 97.6 F 06/19/24 00:00 Pulse 100 06/19/24 04:00 Resp 19 H 06/19/24 04:00 BP 121/68 06/19/24 04:00 Pulse Ox 92 06/19/24 04:00 O2 Del Method Nasal Cannula 06/19/24 04:00 O2 Flow Rate 2 06/19/24 04:00 06/18/24 06/18/24 06/19/24 14:59 22:59 06:59 Intake Total 240 / 240 638.558 / 878.558 Output Total 700 / 700 1750 / 2450 Balance -460 / -460 -1111.442 / -1571.442 Weight last 48 hrs Weight 99.926 kg Weight 102.92 kg Weight 102.92 kg Physical Exam 2 Narrative: awake , alert , No distress HEENT S1S2 RRR per report Lungs clear per report No edema Urinary Catheter Management: Blair: Cath Placed During This Visit: yes Reason for Continuing Indwelling Catheter: Accurate Measurement of Urinary Output in Critically Ill Patients Urinary Catheter Date of Insertion: 06/12/24 Urinary Catheter Time of Insertion: 14:01 Data 06/19/24 03:37 06/19/24 17:10 A&P Assessment and plan (1) Ischemic cardiomyopathy: (2) Acute on chronic renal failure: 1. Acute on chronic kidney disease: Patient's baseline creatinine is in the 1.5-2 range, followed by Dr. Carpio from nephrology as outpatient. Patient now has WHIT in the setting of cardiogenic shock, on diuretics and inotropes. Patient's renal function is currently stable, though creatinine is above baseline. Noted patient has uremia, continue to monitor for now. 2 g sodium restriction and 1500 mL fluid restriction If uremia continues to get worse, will hold diuretics temporarily -No acute indication for dialysis 2. Ischemic cardiomyopathy: Ejection fraction 45%, on diuretics and management cardiology 3. Hyponatremia: Likely hypervolemic, monitor 4. Anemia: Hemoglobin 9.2, monitor, will give CARLOS Patient evaluated using audiovisual cart. Time spent 40 minutes. - Qualifiers: Acute renal failure type: with other specified pathological lesion C hronic kidney disease stage: stage 2 (mild) Qualified Code(s): N17.8 - Other acute kidney failure; N18.2 - Chronic kidney disease, stage 2 (mild) Attestations 2 Medical Necessity Statement*: per [facility] Coding Level of Care Code Acute Code for [facility] Fwd Diagnoses Ischemic cardiomyopathy I25.5 Acute renal failure with other specified pathological kidney lesion superimposed on stage 2 chronic kidney disease N17.8; N18.2 Acute renal failure type: with other specified pathological lesion Chronic kidney disease stage: stage 2 (mild)
[2024-06-19] MEDS: aspirin 81 mg EC Tablet PO (06:40)
[2024-06-19] MEDS: ascorbic acid 500 mg Tablet 250 MG PO (06:40)
[2024-06-19] MEDS: cyanocobalamin 1,000 mcg Tablet 1000 MCG PO (06:40)
[2024-06-19] MEDS: epoetin alfa 20,000 unit/mL MDV (ESRD) 10000 UNIT SUBCUT (06:40)
[2024-06-19 06:54] LABS: Glucose Point of Care 216 mg/dL (70-110)
--- NOTE | 2024-06-19 07:00 | XRR_ITS ---
PROCEDURE INFORMATION: Exam: XR Chest Exam date and time: 06/19/2024 5:43 AM Age: 74 years old Clinical indication: Shortness of breath; Prior surgery; Surgery date: 6+ months; Surgery type: Cabg; Additional info: SOB TECHNIQUE: Imaging protocol: Radiologic exam of the chest. Views: 1 view. COMPARISON: CR XR chest 1V portable [id number] 06/13/2024 1:25 PM FINDINGS: Tubes, catheters and devices: Right PICC line terminates in the SVC. Lungs: Interstitial edema. Hypoventilatory changes at the right lung base. Pleural spaces: Unremarkable. No pleural effusion. No pneumothorax. Heart/Mediastinum: Cardiomegaly. Vasculature: Vascular engorgement. Bones/joints: Unremarkable. XR/XR chest 1V portable [id number] IMPRESSION: Mild CHF.
[2024-06-19] MEDS: lidocaine 1% 5 ML in potassium chloride premix 100 ML 26.25 ML IV (08:18)
[2024-06-19] MEDS: insulin lispro 100 unit/1 mL SUBCUT ×4 (08:19→21:05)
[2024-06-19] MEDS: bisacodyl 5 mg Tablet 10 MG PO (08:20)
[2024-06-19] MEDS: metoprolol tartrate 25 mg Tablet 12.5 MG PO ×2 (08:20→21:04)
[2024-06-19] MEDS: budesonide 0.5 mg/2 mL Neb INHALATION ×2 (09:38→20:25)
[2024-06-19 10:53] LABS: Adenovirus Not Detected (NOT DETECT); Chlamydia Pneumoniae Not Detected (NOT DETECT); Coronavirus 229E,HKU1,NL63,OC4 Not Detected (NOT DETECT); Human Metapneumovirus Not Detected (NOT DETECT); Human Rhinovirus/Enterovirus Not Detected (NOT DETECT); Influenza A Not Detected (NOT DETECT); Influenza A H1 Not Detected (NOT DETECT); Influenza A H1-2009 Not Detected (NOT DETECT); Influenza A H3 Not Detected (NOT DETECT); Influenza B Not Detected (NOT DETECT); Mycoplasma Pneumoniae Not Detected (NOT DETECT); Parainfluenza Virus Type 1 Not Detected (NOT DETECT); Parainfluenza Virus Type 2 Not Detected (NOT DETECT); Parainfluenza Virus Type 3 Not Detected (NOT DETECT); Parainfluenza Virus Type 4 Not Detected (NOT DETECT); Respiratory Syncytial Virus A Not Detected (NOT DETECT); Respiratory Syncytial Virus B Not Detected (NOT DETECT); SARS-COV-2 Not Detected (NOT DETECT)
[2024-06-19 11:47] LABS: Glucose Point of Care 293 mg/dL (70-110)
--- NOTE | 2024-06-19 12:14 | PC.SOCIAL ---
IMM Updated IMM dated and initialed and placed in chart and copy given to patient.
--- NOTE | 2024-06-19 12:52 | PM.PN ---
Subjective Subjective: Patient was seen this morning, cardio dobutamine drip, he is alert oriented x 3, following all commands, he tells me his shortness of breath his lower extreme edema is improving, urine output was 2900 mL, denies any lightheadedness, no dizziness, no nausea, no vomiting, he has not had a bowel movement as of yet, discussed improving creatinine Vitals/I&O/Wt Last Vital Signs Temp 97.8 F 06/19/24 12:00 Pulse 96 06/19/24 12:00 Resp 16 06/19/24 12:00 BP 112/59 06/19/24 12:00 Pulse Ox 93 06/19/24 12:00 O2 Del Method Nasal Cannula 06/19/24 12:00 O2 Flow Rate 2 06/19/24 12:00 06/18/24 06/19/24 06/19/24 22:59 06:59 14:59 Intake Total 638.558 / 878.558 618 / 1496.558 240 / 240 Output Total 1750 / 2450 900 / 3350 Balance -1111.442 / -1571.442 -282 / -1853.442 240 / 240 Weight last 48 hrs Weight 99.926 kg Physical Exam Const: COMMON NORMALS: no acute distress and patient oriented x3 Resp: COMMON NORMALS: normal respiratory effort, No retractions, No use of accessory muscles and clear to auscultation bilaterally AUSCULTATION: clear to auscultation bilaterally Cardio: COMMON NORMALS: regular rate, regular rhythm, S1 normal heart sound present and S2 normal heart sound present RATE: regular rate RHYTHM: regular rhythm HEART SOUNDS: S1 normal heart sound present and S2 normal heart sound present GI: COMMON NORMALS: Normal to inspection, nondistended, normoactive bowel sounds present and non-tender Extremity: NARRATIVE EXTREMITY EXAM: 1+ pitting edema Neuro: COMMON NORMALS: patient oriented x3 Psych: COMMON NORMALS: mental status grossly normal Urinary Catheter Management: Blair: Cath Placed During This Visit: yes Reason for Continuing Indwelling Catheter: Accurate Measurement of Urinary Output in Critically Ill Patients Urinary Catheter Date of Insertion: 06/12/24 Urinary Catheter Time of Insertion: 14:01 Data 06/19/24 03:37 06/19/24 03:37 A&P Assessment and plan (1) Acute on chronic renal failure: Baseline CKD stage IIIb Baseline creatinine 1.7. Creatinine down to 2.6, urine output 2900 Elevated creatinine due to soft blood pressures and or diuresis and/or cardiorenal syndrome Blair catheterization. Strict input output charting. Appreciate urine lites with urine sodium of 52 and creatinine of 32. Fena?3.1 consistent with intrinsic pathology. CT abdomen pelvis negative for obstructive nephropathy. Will plan to keep mean arterial pressure around 65. Continue dobutamine for another 24 hours Bumex 1mg q12hrs Artery urine output, monitor potassium ? Repeat BMP this afternoon ? Nephrology consulted ? Cardiology consulted Qualifiers: Acute renal failure type: with other specified pathological lesion Chronic kidney disease stage: stage 2 (mild) Qualified Code(s): N17.8 - Other acute kidney failure; N18.2 - Chronic kidney disease, stage 2 (mild) (2) Cardiogenic shock: Blood pressure have been gradually decreasing, hold hydralazine (3) Chronic systolic (congestive) heart failure: CONCLUSIONS Dilated left-ventricular with a thinned out septum. Severe diffuse hypokinesia with an ejection fraction of 25%. Grade III/IV diastolic dysfunction (restrictive filling pattern), severely elevated filling pressures. Dilated right ventricle with a moderately diminished ejection fraction. Moderate biatrial enlargement Moderate-severe mitral valve regurgitation. Minimally thickened aortic valve. Mild tricuspid valve regurgitation. Estimated pulmonary artery peak systolic pressure 40 mmHg. Moderate pulmonary valve regurgitation. There is no pericardial effusion. There are no intracardiac masses. Compared to the study from 08/13/2023, there is significant drop in the LV ejection fraction from 45% to 25% Strict input and output charting, daily weights. Bumex as above dobutamine drip as above Last angiogram from July 2022 showed patent [place] to LAD and venous graft to PDA with total occlusion of venous graft to obtuse marginal and diagonal arteries with severely elevated diastolic pressures for which medical treatment was opted. (4) Ischemic cardiomyopathy: Last angiogram from July 2022 showed patent [place] to LAD and venous graft to PDA with total occlusion of venous graft to obtuse marginal and diagonal arteries with severely elevated diastolic pressures for which medical treatment was opted. Denies any current chest pain. For now continue with home dose of aspirin, Plavix. Stress test IMPRESSIONS 1. Myocardial perfusion imaging revealing extensive areas of myocardial scarring mostly in the distribution of all 3 coronary arteries more so in the distribution of the left anterior descending artery and circumflex artery with subtle areas of ischemia mostly in th circumflex artery distribution. 2. Markedly diminished LV ejection fraction of 16%. 3. Segmental wall motion analysis revealing severe diffuse hypokinesia of the left ventricle. 4. Markedly dilated LV cavity with an end-systolic volume of 237 mL Compared to the study from 07/18/2022, the ischemic burden appears to be much less(the summed score difference of 11 versus 2). The LV ejection fraction appears to be has any fairly decreased with a significant enlargement of the left ventricle. These features may suggest extensive reverse remodeling. 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 A1c of 5.9. Due to abdominal distention, had evidence of mild to moderate ascites on admission, repeat ultrasound of the abdomen US/US abdomen complete* [id number] IMPRESSION: 1. Stable mixed echogenicity heterogeneous mass in the RIGHT hepatic lobe compatible with history of HCC. This measures approximately 8.4 x 7.3 x 7.[address] 06/12/2024 2. Cirrhotic liver. 3. Normal gallbladder. 4. Simple cyst RIGHT kidney measuring 1.8 x 1.6 cm 5. Mild perihepatic and perisplenic ascites. -Abdominal distention is improving CODE STATUS: Discussed detail with the patient. with the DPOA. Full code Renal nondialysis diabetic diet Protonix for PUD prophylaxis Heparin for DVT prophylaxis Plan for today spoke to cardiology, continue dobutamine, continue IV diuresis, monitor urine output monitor creatinine, monitor potassium Attestations Medical Necessity Statement*: Patient requires hospitalization for CHF exacerbation, systolic, with WHIT, on dobutamine drip Diagnoses Acute renal failure with other specified pathological kidney lesion superimposed on stage 2 chronic kidney disease N17.8; N18.2 Acute renal failure type: with other specified pathological lesion Chronic kidney disease stage: stage 2 (mild) Cardiogenic shock R57.0 Chronic systolic (congestive) heart failure I50.22 Ischemic cardiomyopathy I25.5 Other specified hypotension I95.89 Hypotension type: other hypotension type 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
--- NOTE | 2024-06-19 12:54 | US_ITS ---
WS: [id number] ULTRASOUND ABDOMEN CLINICAL INFORMATION: ascites, history of liver cancer COMPARISON: CT 06/12/2024 FINDINGS: Liver Size: Cirrhotic Craniocaudal length: 17.3 cm. Echogenicity: Coarse Surface nodularity: Nodular Mass (size and location): Large mass in the RIGHT inferior buttock lobe with mixed echogenicity josette tible with history of HCC stable since the recent CT. This measures 8.4 x 7.3 x 7.3 cm Bidirectional pulsatile flow in the main portal vein compatible with portal hypertension Bile ducts Intrahepatic ducts: Normal. Common bile duct diameter: 0.4 cm. Gallbladder Normal. Gallstones: None. Gallbladder sludge: None. Gallbladder wall thickening: None. Pericholecystic fluid: None. Sonographic Martin sign: Absent. Pancreas Normal as visualized. Spleen Splenomegaly: None. Craniocaudal length: 11.2 cm. Right kidney: Simple cyst measuring 1.8 x 1.6 cm Hydronephrosis: None. Size: 10.9 cm x 5.0 cm x 4.7 cm Left kidney: Normal. Hydronephrosis: None. Size: 13.0 cm x 6.5 cm x 5.4 cm. Abdominal aorta and IVC Visualized portions are normal. Ascites: Mild US/US abdomen complete* [id number] IMPRESSION: 1. Stable mixed echogenicity heterogeneous mass in the RIGHT hepatic lobe comp atible with history of HCC. This measures approximately 8.4 x 7.3 x 7.3 cm stab le since CT 06/12/2024 2. Cirrhotic liver. 3. Normal gallbladder. 4. Simple cyst RIGHT kidney measuring 1.8 x 1.6 cm 5. Mild perihepatic and perisplenic ascites.
[2024-06-19] MEDS: lactulose oral liq 20 gm/30 mL UDC PO (13:22)
[2024-06-19 14:28] LABS: C Reactive Protein 59.9 mg/L (0.0-4.9)
[2024-06-19 14:35] LABS: Procalcitonin 0.41 ng/mL (0-0.5)
[2024-06-19] MEDS: pantoprazole 40 mg SDV IVP (15:40)
[2024-06-19] MEDS: DOBUTamine drip 500 MG/250 ML PREMIX 7.49 MG IV (17:14)
[2024-06-19 17:34] LABS: Calcium 8.7 mg/dL (8.5-10.5); Carbon Dioxide 31 mmol/L (22-29); Chloride 88 mmol/L (98-107); Creatinine Clr Calc Pharmacy 33.5083; Glucose 224 mg/dL (65-115); Osmolality Calculated 313 mOsm/kg (285-295); Sodium 133 mmol/L (136-145)
[2024-06-19 17:36] LABS: Blood Urea Nitrogen 96 mg/dL (8-23)
[2024-06-19] MEDS: potassium chloride ER 20 mEq Tablet 40 MEQ PO (18:20)
[2024-06-19] MEDS: clopidogrel 75 mg Tablet PO (21:04)
[2024-06-19] MEDS: insulin glargine 100 units/1 mL 5 UNIT SUBCUT (21:05)
--- NOTE | 2024-06-19 21:47 | P.PN_ITS ---
Subjective 2 Subjective: Patient's shortness of breath is better. The urine output got improved with the IV Dobutrex. Currently he is on a Dobutrex 2.5 mics per KG per minute. He still has significant cough with deep breath. No fever or chills. No white cell count elevation. He had a frequent PVCs with the dobutamine of 5 mics per KG per minute. So it was brought down to 2.5 mics per KG per minute. Medications: Medication Review Details: Current Medications Acetaminophen (Acetaminophen 325 Mg Tablet) 650 mg PO Q6H PRN PRN Reason: Mild/Mod Pain Or Temp >/= 101 Albuterol/Ipratropium (Ipratropium-Albuterol 3 Ml Neb) 3 ml INHALATION Q6H.RESP [facility] Last Admin: 06/19/24 20:27 Dose: 3 ml Ascorbic Acid (Ascorbic Acid 500 Mg Tablet) 250 mg PO QAM [facility] Last Admin: 06/19/24 06:40 Dose: 250 mg Aspirin (Aspirin 81 Mg Ec Tablet) 81 mg PO [facility] Last Admin: 06/19/24 06:40 Dose: 81 mg Benzonatate (Benzonatate 100 Mg Capsule) 100 mg PO TID PRN PRN Reason: COUGH Bisacodyl (Bisacodyl 5 Mg Tablet) 10 mg PO DAILY [facility]; Protocol Last Admin: 06/19/24 08:20 Dose: 10 mg Budesonide (Budesonide 0.5 Mg/2 Ml Neb) 0.5 mg INHALATION BID.RESPIRATORY [facility] Last Admin: 06/19/24 20:25 Dose: 0.5 mg Bumetanide (Bumetanide 0.25 Mg/Ml Sdv 4 Ml) 1 mg IVP Q12H [facility] Last Admin: 06/19/24 12:27 Dose: 1 mg Clopidogrel Bisulfate (Clopidogrel 75 Mg Tablet) 75 mg PO BEDTIME [facility] Last Admin: 06/19/24 21:04 Dose: 75 mg Cyanocobalamin (Cyanocobalamin 1,000 Mcg Tablet) 1,000 mcg PO QAM [facility] Last Admin: 06/19/24 06:40 Dose: 1,000 mcg Diclofenac Sodium (Diclofenac 1% Topical Gel 100 Gm) 4 applic TOPICAL QID PRN PRN Reason: Pain Glucagon (Glucagon 1 Mg/Ml Kit 1 Ml) 1 mg IM ONCE PRN; Protocol PRN Reason: Adult Acute Hypoglycemia Nursing Prot. Heparin Sodium (Porcine) (Heparin 5,000 Unit/Ml Inj 1 Ml) 5,000 unit SUBCUT Q12H [facility] Last Admin: 06/19/24 15:40 Dose: 5,000 unit Dextrose (D5w) 500 mls @ 0 mls/hr IV ONCE PRN; Protocol PRN Reason: Adult Acute Hypoglycemia Prot Dextrose (D10w) 125 mls @ 750 mls/hr IV PRN PRN; Protocol PRN Reason: Adult Acute Hypoglycemia Nursing Protocol Dextrose (D10w) 250 mls @ 1,000 mls/hr IV PRN PRN; Protocol PRN Reason: Adult Acute Hypoglycemia Nursing Protocol Dobutamine HCl/Dextrose (Dobutamine Drip) 500 mg in 250 mls @ 0 mls/hr IV .Q0M [facility] Last Admin: 06/19/24 17:14 Dose: 2.5 mcg/kg/min, 7.49 mls/hr Insulin Glargine (Insulin Glargine 100 Units/1 Ml) 5 unit SUBCUT BEDTIME [facility] Last Admin: 06/19/24 21:05 Dose: 5 unit Insulin Human Lispro (Insulin Lispro 100 Unit/1 Ml) 0 unit SUBCUT WM&BEDTIME [facility]; Protocol Last Admin: 06/19/24 21:05 Dose: 8 unit Lactulose (Lactulose Oral Liq 20 Gm/30 Ml Udc) 10 gm PO DAILY PRN; Protocol PRN Reason: Constipation (see protocol) Lactulose (Lactulose Oral Liq 20 Gm/30 Ml Udc) 20 gm PO Q12H [facility] Last Admin: 06/19/24 13:22 Dose: 20 gm Magnesium Hydroxide (Magnesium Hydroxide 30 Ml Udc) 30 ml PO DAILY PRN; Protocol PRN Reason: Constipation (see protocol) Last Admin: 06/16/24 23:39 Dose: 30 ml Metoprolol Tartrate (Metoprolol Tartrate 25 Mg Tablet) 12.5 mg PO BID@0900,2100 [facility] Last Admin: 06/19/24 21:04 Dose: 12.5 mg Morphine Sulfate (Morphine 4 Mg/Ml Sdv 1 Ml) 2 mg IVP Q4H PRN PRN Reason: SEVERE PAIN Ondansetron HCl (Ondansetron 2 Mg/Ml Sdv 2 Ml) 4 mg IVP Q8H PRN PRN Reason: vomiting, or N/V if npo Ondansetron HCl (Ondansetron 2 Mg/Ml Sdv 2 Ml) 4 mg IVP Q2M PRN PRN Reason: NAUSEA Last Admin: 06/17/24 07:36 Dose: 4 mg Pantoprazole Sodium (Pantoprazole 40 Mg Sdv) 40 mg IVP Q24H [facility] Last Admin: 06/19/24 15:40 Dose: 40 mg Polyethylene Glycol (Polyethylene Glycol 3350 Pkt 17 Gm) 17 gm PO Q12H [facility] Last Admin: 06/19/24 15:40 Dose: 17 gm Vitals/I&O/Wt Last Vital Signs Temp 97.9 F 06/19/24 19:35 Pulse 106 H 06/19/24 20:28 Resp 18 06/19/24 20:28 BP 122/65 06/19/24 19:35 Pulse Ox 94 06/19/24 20:28 O2 Del Method Nasal Cannula 06/19/24 20:28 O2 Flow Rate 2 06/19/24 20:28 06/19/24 06/19/24 06/19/24 06:59 14:59 22:59 Intake Total 618 / 1496.558 585 / 585 157.165 / 742.165 Output Total 900 / 3350 1550 / 1550 Balance -282 / -1853.442 585 / 585 -1392.835 / -807.835 Weight last 48 hrs Weight 223 lb 9.6 oz Weight 220 lb 4.8 oz Physical Exam 2 Narrative: GENERAL: The patient is alert and oriented times three. Not in any acute distress. HEENT: No significant pallor, icterus or lymphadenopathy.Oral cavity: There are no mucous membrane lesions. NECK: Trachea appears to be central. No masses noted. No JVD or thyromegaly appreciated. RESPIRATORY: Chest is symmetrical. No intercostals muscle retraction or any accessory muscle activation. There is no chest wall tenderness. Breath sounds are heard bilaterally. Scattered coarse crackles at the bases with occasional expiratory wheezing BREASTS: Deferred. HEART: The heart sounds are normal. No S3 or S4. Short systolic murmur in the lower sternal border. No diastolic murmurs.. No pericardial rub ABDOMEN: No vessel pulsations or distention. No tenderness. No organomegaly appreciated. Bowel sounds are normally heard. Distended with moderate ascites : Deferred. RECTAL: Deferred. LYMPHATIC: No lymphadenopathy noted in the neck. EXTREMITIES: 1-2+ edema both extremities. MUSCULOSKELETAL: No acute joint deformities or swelling SKIN: There are no significant rashes or ecchymosis NEUROPSYCHIATRIC: The patient is alert and oriented x3. Appears to be in a good mood. No tremors or rigidity noted. Urinary Catheter Management: Blair: Cath Placed During This Visit: yes Reason for Continuing Indwelling Catheter: Accurate Measurement of Urinary Output in Critically Ill Patients Urinary Catheter Date of Insertion: 06/12/24 Urinary Catheter Time of Insertion: 14:01 Data 06/19/24 03:37 06/19/24 17:10 Other data: Abdominal ultrasound today 1. Stable mixed echogenicity heterogeneous mass in the RIGHT hepatic lobe compatible with history of HCC. This measures approximately 8.4 x 7.3 x 7.[address] 06/12/2024 2. Cirrhotic liver. 3. Normal gallbladder. 4. Simple cyst RIGHT kidney measuring 1.8 x 1.6 cm 5. Mild perihepatic and perisplenic ascites. Chest x-ray today Features of mild CHF. Cardiomegaly.? Atelectasis in the lower lobe region A&P Assessment and plan (1) Acute on chronic systolic heart failure: Patient may have a low output state, making the kidney function worse. It might be worthwhile at this point to give a trial of IV Dobutrex to see whether that improves the cardiac output and the urine output. I may start with a 2.5 mics per KG per minute and go up to 5 mics per KG per minute. Based on the clinical response, further recommendations will be made. Since patient could not tolerate the 5 mics, we will continue the 2 mics per KG per minute dose for a total of 48 hours. Other measures may be continued. (2) Atherosclerosis of coronary artery of [place] heart without angina pectoris: Patient had the last coronary angiogram in 2021. The Myocardial perfusion imaging revealed only a small area of ischemia. Based on the findings, it would be appropriate to continue the medical treatment at this point. This was discussed with the patient and the family in detail. Shared decision was made to continue the medical treatment. Qualifiers: Coronary Disease-Associated Artery/Lesion type: [place] artery Qualified Code(s): I25.10 - Atherosclerotic heart disease of [place] coronary artery without angina pectoris (3) Ascites: Had the ultrasound examination today. Was found to have features of mild ascites in the perinephric and the perihepatic region. Persistent mass in the posterior lobe of the liver as mentioned above. Qualifiers: Ascites type: other type Qualified Code(s): R18.8 - Other ascites (4) Hyperlipidemia: May continue on the current management. Qualifiers: Hyperlipidemia type: mixed hyperlipidemia Qualified Code(s): E78.2 - Mixed hyperlipidemia (5) Hypotension: Currently the blood pressure has improved. Qualifiers: Hypotension type: other hypotension type Qualified Code(s): I95.89 - Other hypotension (6) Diabetes: Aggressive management of the diabetes would be appropriate. The blood sugar seems to fairly under control. Qualifiers: Diabetes mellitus complication status: without complication Diabetes mellitus assisted insulin use: without assisted use Diabetes mellitus type: t ype 2 Qualified Code(s): E11.9 - Type 2 diabetes mellitus without complications (7) Acute on chronic renal failure: There appears to be slight improvement of the BUN and creatinine levels, today Qualifiers: Acute renal failure type: with other specified pathological lesion C hronic kidney disease stage: stage 2 (mild) Qualified Code(s): N17.8 - Other acute kidney failure; N18.2 - Chronic kidney disease, stage 2 (mild) Plan The other problems are Peripheral arterial disease COPD Hepatocellular carcinoma History of pancreatitis/pancreatic cyst Will discontinue the Dobutrex after 48 hours. Will closely monitor the output. LifeVest was ordered yesterday. Continue the other current treatment measures. Attestations 2 Medical Necessity Statement*: Disposition as per the primary Coding Level of Care Code 38784 Diagnoses Acute on chronic systolic heart failure I50.23 Atherosclerosis of [place] coronary artery of [place] heart without angina pectoris I25.10 Coronary Disease-Associated Artery/Lesion type: [place] artery Other ascites R18.8 Ascites type: other type Mixed hyperlipidemia E78.2 Hyperlipidemia type: mixed hyperlipidemia Other specified hypotension I95.89 Hypotension type: other hypotension type Type 2 diabetes mellitus without complication, without long-term current use of insulin E11.9 Diabetes mellitus complication status: without complication Diabetes mellitus termite helper insulin use: without assisted use Diabetes mellitus type: type 2 Acute renal failure with other specified pathological kidney lesion superimposed on stage 2 chronic kidney disease N17.8; N18.2 Acute renal failure type: with other specified pathological lesion Chronic kidney disease stage: stage 2 (mild)
[2024-06-20] VITALS (16 sets, daily range): BP systolic 98–127; BP diastolic 54–73; PULSE 0–102; RESP 13–22; TEMP 36.4–36.9; O2SAT 92–97
[2024-06-20] MEDS: bumetanide 0.25 mg/mL SDV 4 mL 1 MG IVP ×2 (00:58→12:17)
[2024-06-20] MEDS: ipratropium-albuterol 3 mL Neb INHALATION ×2 (02:10→07:57)
[2024-06-20] MEDS: heparin 5,000 unit/mL INJ 1 mL 5000 UNIT SUBCUT (03:24)
[2024-06-20 05:03] LABS: Basophils % 0.3 %; Eosinophils # 0.3 10^3/uL (0.0-0.8); Eosinophils % 2.9 %; Hematocrit 27.9 % (37-53); Lymphocytes # 0.5 10^3/uL (0.8-4.8); Lymphocytes % 4.9 %; Mean Corpuscular HGB Conc 31.5 g/dL (30-55); Mean Corpuscular Hemoglobin 25.2 pg (27-33); Mean Corpuscular Volume 79.9 fl (82-101); Mean Platelet Volume 9.8 fL (7.4-10.4); Monocytes % 9.2 %; Neutrophils # 8.81 10^3/uL (1.8-7.7); Neutrophils % 82.1 %; Nucleated Red Blood Cells % 0 %; Platelet Count 202 10^3/cmm (157-399); Red Blood Count 3.49 10^6/uL (3.85-5.65); Red Cell Distribution Width 20.7 % (12.1-15.1); White Blood Count 10.71 10^3/uL (3.29-11.43)
[2024-06-20] MEDS: cyanocobalamin 1,000 mcg Tablet 1000 MCG PO (05:26)
[2024-06-20] MEDS: aspirin 81 mg EC Tablet PO (05:26)
[2024-06-20] MEDS: ascorbic acid 500 mg Tablet 250 MG PO (05:26)
[2024-06-20 05:34] LABS: Magnesium 2.3 mg/dL (1.7-2.3); Phosphorus 3.6 mg/dL (2.5-4.5)
[2024-06-20 05:36] LABS: Lactate (Lactic Acid level) 1.1 mmol/L (0.5-2.2)
[2024-06-20 05:37] LABS: Calcium 8.5 mg/dL (8.5-10.5); Carbon Dioxide 30 mmol/L (22-29); Chloride 90 mmol/L (98-107); Creatinine Clr Calc Pharmacy 38.8093; Glucose 110 mg/dL (65-115); NT Pro B Type Natriuretic Pept 25125 pg/mL (0-125); Osmolality Calculated 311 mOsm/kg (285-295); Sodium 136 mmol/L (136-145)
[2024-06-20 05:46] LABS: Blood Urea Nitrogen 93 mg/dL (8-23)
[2024-06-20] MEDS: metoprolol tartrate 25 mg Tablet 12.5 MG PO (07:37)
[2024-06-20] MEDS: acetaminophen 325 mg Tablet 650 MG PO (07:37)
[2024-06-20 07:47] LABS: Glucose Point of Care 124 mg/dL (70-110)
[2024-06-20 07:47] LABS: Glucose Point of Care 252 mg/dL (70-110)
[2024-06-20 07:47] LABS: Glucose Point of Care 272 mg/dL (70-110)
[2024-06-20] MEDS: budesonide 0.5 mg/2 mL Neb INHALATION (07:57)
[2024-06-20] MEDS: potassium chloride ER 20 mEq Tablet 40 MEQ PO (08:11)
--- NOTE | 2024-06-20 08:13 | P.PN_ITS ---
Subjective 2 Subjective: no new c/o Medications: Reviewed: Yes Vitals/I&O/Wt Last Vital Signs Temp 98.5 F 06/20/24 07:31 Pulse 97 06/20/24 08:06 Resp 18 06/20/24 07:57 BP 127/73 06/20/24 07:31 Pulse Ox 97 06/20/24 07:57 O2 Del Method Nasal Cannula 06/20/24 07:57 O2 Flow Rate 2 06/20/24 07:57 06/19/24 06/20/24 06/20/24 22:59 06:59 14:59 Intake Total 157.165 / 742.165 750 / 1492.165 Output Total 1974 / 1974 1000 / 2975 Balance -1817.835 / -1232.835 -250 / -1482.835 Weight last 48 hrs Weight 102.784 kg Weight 101.423 kg Physical Exam 2 Narrative: awake , alert , No distress HEENT S1S2 RRR per report Lungs clear per report No edema Urinary Catheter Management: Blair: Cath Placed During This Visit: yes Reason for Continuing Indwelling Catheter: Acute Urinary Retention or Obstruction Urinary Catheter Date of Insertion: 06/12/24 Urinary Catheter Time of Insertion: 14:01 Data 06/20/24 04:33 06/20/24 04:33 A&P Assessment and plan (1) Ischemic cardiomyopathy: (2) Acute on chronic renal failure: 1. Acute on chronic kidney disease: Patient's baseline creatinine is in the 1.5-2 range, followed by Dr. Carpio from nephrology as outpatient. Patient now has WHIT in the setting of cardiogenic shock, on diuretics and inotropes. Patient's renal function is currently stable, though creatinine is above baseline. Noted patient has uremia, continue to monitor for now- improving 2 g sodium restriction and 1500 mL fluid restriction follow up with Nephrology after DC 2. Ischemic cardiomyopathy: Ejection fraction 45%, on diuretics and management cardiology 3. Hyponatremia: Likely hypervolemic, monitor 4. Anemia: Hemoglobin 8.8, monitor, will give CARLOS Patient evaluated using audiovisual cart. Time spent 40 minutes. - Qualifiers: Acute renal failure type: with other specified pathological lesion C hronic kidney disease stage: stage 2 (mild) Qualified Code(s): N17.8 - Other acute kidney failure; N18.2 - Chronic kidney disease, stage 2 (mild) Attestations 2 Medical Necessity Statement*: per medicne Coding Level of Care Code Acute Code for Chg Fwd Diagnoses Ischemic cardiomyopathy I25.5 Acute renal failure with other specified pathological kidney lesion superimposed on stage 2 chronic kidney disease N17.8; N18.2 Acute renal failure type: with other specified pathological lesion Chronic kidney disease stage: stage 2 (mild)
[2024-06-20] MEDS: epoetin alfa 20,000 unit/mL MDV (NON-ESRD) 6000 UNIT SUBCUT (08:43)
--- NOTE | 2024-06-20 10:51 | PC.NURSE ---
PICC line and cardona catheter removed at Dr Smith instructions. Both intact on removal. Patient tolerated well.
[2024-06-20 11:58] LABS: Glucose Point of Care 270 mg/dL (70-110)
[2024-06-20] MEDS: insulin lispro 100 unit/1 mL SUBCUT (12:17)
--- NOTE | 2024-06-20 12:48 | P.PN_ITS ---
Subjective 2 Subjective: Patient is feeling better. The urine output has significantly improved with the IV Dobutrex. No fever or chills. Significant improvement of the shortness of breath. The cough with a deep breath has significantly improved Medications: Medication Review Details: Current Medications Acetaminophen (Acetaminophen 325 Mg Tablet) 650 mg PO Q6H PRN PRN Reason: Mild/Mod Pain Or Temp >/= 101 Last Admin: 06/20/24 07:37 Dose: 650 mg Albuterol/Ipratropium (Ipratropium-Albuterol 3 Ml Neb) 3 ml INHALATION Q6H.[facility] Last Admin: 06/20/24 07:57 Dose: 3 ml Ascorbic Acid (Ascorbic Acid 500 Mg Tablet) 250 mg PO [facility] Last Admin: 06/20/24 05:26 Dose: 250 mg Aspirin (Aspirin 81 Mg Ec Tablet) [facility] [place] Admin: 06/20/24 05:26 Dose: 81 mg Benzonatate (Benzonatate 100 Mg Capsule) 100 mg PO TID PRN PRN Reason: COUGH Bisacodyl (Bisacodyl 5 Mg Tablet) 10 mg PO DAILY [facility]; Protocol Last Admin: 06/20/24 07:53 Dose: Not Given Budesonide (Budesonide 0.5 Mg/2 Ml Neb) 0.5 mg INHALATION BID.[facility] Last Admin: 06/20/24 07:57 Dose: 0.5 mg Bumetanide (Bumetanide 0.25 Mg/Ml Sdv 4 Ml) 1 mg IVP Q12H [facility] Last Admin: 06/20/24 12:17 Dose: 1 mg Clopidogrel Bisulfate (Clopidogrel 75 Mg Tablet) 75 mg PO BEDTIME [facility] Last Admin: 06/19/24 21:04 Dose: 75 mg Cyanocobalamin (Cyanocobalamin 1,000 Mcg Tablet) 1,000 mcg [facility] [place] Admin: 06/20/24 05:26 Dose: 1,000 mcg Diclofenac Sodium (Diclofenac 1% Topical Gel 100 Gm) 4 applic TOPICAL QID PRN PRN Reason: Pain Glucagon (Glucagon 1 Mg/Ml Kit 1 Ml) 1 mg IM ONCE PRN; Protocol PRN Reason: Adult Acute Hypoglycemia Nursing Prot. Heparin Sodium (Porcine) (Heparin 5,000 Unit/Ml Inj 1 Ml) 5,000 unit SUBCUT Q12H [facility] Last Admin: 06/20/24 03:24 Dose: 5,000 unit Dextrose (D5w) 500 mls @ 0 mls/hr IV ONCE PRN; Protocol PRN Reason: Adult Acute Hypoglycemia Prot Dextrose (D10w) 125 mls @ 750 mls/hr IV PRN PRN; Protocol PRN Reason: Adult Acute Hypoglycemia Nursing Protocol Dextrose (D10w) 250 mls @ 1,000 mls/hr IV PRN PRN; Protocol PRN Reason: Adult Acute Hypoglycemia Nursing Protocol Dobutamine HCl/Dextrose (Dobutamine Drip) 500 mg in 250 mls @ 0 mls/hr IV .Q0M [facility] Last Infusion: 06/20/24 08:46 Dose: Infused Insulin Glargine (Insulin Glargine 100 Units/1 Ml) 5 unit SUBCUT BEDTIME [facility] Last Admin: 06/19/24 21:05 Dose: 5 unit Insulin Human Lispro (Insulin Lispro 100 Unit/1 Ml) 0 unit SUBCUT WM&BEDTIME [facility]; Protocol Last Admin: 06/20/24 12:17 Dose: 8 unit Lactulose (Lactulose Oral Liq 20 Gm/30 Ml Udc) 10 gm PO DAILY PRN; Protocol PRN Reason: Constipation (see protocol) Lactulose (Lactulose Oral Liq 20 Gm/30 Ml Udc) 20 gm PO Q12H [facility] Last Admin: 06/20/24 12:22 Dose: Not Given Magnesium Hydroxide (Magnesium Hydroxide 30 Ml Udc) 30 ml PO DAILY PRN; Protocol PRN Reason: Constipation (see protocol) Last Admin: 06/16/24 23:39 Dose: 30 ml Metoprolol Tartrate (Metoprolol Tartrate 25 Mg Tablet) 12.5 mg PO BID@0900,2100 [facility] Last Admin: 06/20/24 07:37 Dose: 12.5 mg Morphine Sulfate (Morphine 4 Mg/Ml Sdv 1 Ml) 2 mg IVP Q4H PRN PRN Reason: SEVERE PAIN Ondansetron HCl (Ondansetron 2 Mg/Ml Sdv 2 Ml) 4 mg IVP Q8H PRN PRN Reason: vomiting, or N/V if npo Ondansetron HCl (Ondansetron 2 Mg/Ml Sdv 2 Ml) 4 mg IVP Q2M PRN PRN Reason: NAUSEA Last Admin: 06/17/24 07:36 Dose: 4 mg Pantoprazole Sodium (Pantoprazole 40 Mg Sdv) 40 mg IVP Q24H [facility] Last Admin: 06/19/24 15:40 Dose: 40 mg Polyethylene Glycol (Polyethylene Glycol 3350 Pkt 17 Gm) 17 gm PO Q12H [facility] Last Admin: 06/20/24 03:20 Dose: Not Given Vitals/I&O/Wt Last Vital Signs Temp 97.8 F 06/20/24 12:00 Pulse 87 06/20/24 12:00 Resp 18 06/20/24 12:00 BP 98/54 06/20/24 12:00 Pulse Ox 97 06/20/24 12:00 O2 Del Method Nasal Cannula 06/20/24 12:00 O2 Flow Rate 2 06/20/24 12:00 06/19/24 06/20/24 06/20/24 22:59 06:59 14:59 Intake Total 157.165 / 742.165 750 / 1492.165 956.345 / 956.345 Output Total 1974 1000 / 2975 450 / 450 Balance -1817.835 / -1232.835 -250 / -1482.835 506.345 / 506.345 Weight last 48 hrs Weight 226 lb 9.6 oz Weight 223 lb 9.6 oz Physical Exam 2 Narrative: GENERAL: The patient is alert and oriented times three. Not in any acute distress. HEENT: No significant pallor, icterus or lymphadenopathy.Oral cavity: There are no mucous membrane lesions. NECK: Trachea appears to be central. No masses noted. No JVD or thyromegaly appreciated. RESPIRATORY: Chest is symmetrical. No intercostals muscle retraction or any accessory muscle activation. There is no chest wall tenderness. Breath sounds are heard bilaterally. Scattered coarse crackles at the bases with occasional expiratory wheezing BREASTS: Deferred. HEART: The heart sounds are normal. No S3 or S4. Short systolic murmur in the lower sternal border. No diastolic murmurs.. No pericardial rub ABDOMEN: No vessel pulsations or distention. No tenderness. No organomegaly appreciated. Bowel sounds are normally heard. Distended with moderate ascites : Deferred. RECTAL: Deferred. LYMPHATIC: No lymphadenopathy noted in the neck. EXTREMITIES: 1-2+ edema both extremities. MUSCULOSKELETAL: No acute joint deformities or swelling SKIN: There are no significant rashes or ecchymosis NEUROPSYCHIATRIC: The patient is alert and oriented x3. Appears to be in a good mood. No tremors or rigidity noted. Urinary Catheter Management: [place]: Cath Placed During This Visit: yes, but has since been removed by the nurse Reason for Continuing Indwelling Catheter: Accurate Measurement of Urinary Output in Critically Ill Patients Urinary Catheter Date of Insertion: 06/12/24 Urinary Catheter Time of Insertion: 14:01 Date Urinary Catheter Removed: 06/20/24 Time Urinary Catheter Discontinued: 09:00 Data 06/20/24 04:33 06/20/24 04:33 Other Labs: Laboratory Last Values WBC 10.71 10^3/uL (3.29-11.43) 06/20/24 04:33 RBC 3.49 10^6/uL (3.85-5.65) L 06/20/24 04:33 Hgb 8.80 g/dL (11.27-16.99) L 06/20/24 04:33 Hct 27.9 % (37-53) L 06/20/24 04:33 MCV 79.9 fl (82-101) L 06/20/24 04:33 MCH 25.2 pg (27-33) L 06/20/24 04:33 MCHC 31.5 g/dL (30-55) 06/20/24 04:33 RDW 20.7 % (12.1-15.1) H 06/20/24 04:33 Plt Count 202 10^3/cmm (157-399) 06/20/24 04:33 MPV 9.8 fL (7.4-10.4) 06/20/24 04:33 Neut % (Auto) 82.1 % 06/20/24 04:33 Lymph % (Auto) 4.9 % 06/20/24 04:33 [place] % (Auto) 9.2 % 06/20/24 04:33 Eos % (Auto) 2.9 % 06/20/24 04:33 Baso % (Auto) 0.3 % 06/20/24 04:33 Neut # (Auto) 8.81 10^3/uL (1.8-7.7) H 06/20/24 04:33 Lymph # (Auto) 0.5 10^3/uL (0.8-4.8) L 06/20/24 04:33 [place] # (Auto) 1.0 10^3/uL (0.2-0.9) H 06/20/24 04:33 Eos # (Auto) 0.3 10^3/uL (0.0-0.8) 06/20/24 04:33 Baso # (Auto) 0.0 10^3/uL (0.0-0.1) 06/20/24 04:33 Nucleated RBC % (auto) 0 % 06/20/24 04:33 Nucleated RBCs # 0.0 /100WBC 06/20/24 04:33 D-Dimer 2.26 ug/mLFEU (0-0.59) H 06/12/24 10:49 Sodium 136 mmol/L (136-145) 06/20/24 04:33 Potassium 3.0 mmol/L (3.5-5.1) L 06/20/24 04:33 Chloride 90 mmol/L (98-107) L 06/20/24 04:33 Carbon Dioxide 30 mmol/L (22-29) H 06/20/24 04:33 Anion Gap 19.0 (5-19) 06/20/24 04:33 BUN 93 mg/dL (8-23) H* 06/20/24 04:33 Creatinine 2.1 mg/dL (0.7-1.2) H 06/20/24 04:33 GFR Calculation Not Reportable 06/20/24 04:33 Glucose 110 mg/dL (65-115) 06/20/24 04:33 POC Glucose 270 mg/dL (70-110) H 06/20/24 11:49 Estimat Average Glucose 123 06/13/24 04:15 Hemoglobin A1c 5.9 % (4.0-6.0) 06/13/24 04:15 Calculated Osmolality 311 mOsm/kg (285-295) H 06/20/24 04:33 Lactic Acid 1.9 mmol/L (0.5-2.2) 06/12/24 10:49 Lactate 1.1 mmol/L (0.5-2.2) 06/20/24 04:33 Calcium 8.5 mg/dL (8.5-10.5) 06/20/24 04:33 Phosphorus 3.6 mg/dL (2.5-4.5) 06/20/24 04:33 Magnesium 2.3 mg/dL (1.7-2.3) 06/20/24 04:33 Iron 35 ug/dL (59-158) L 06/12/24 10:49 TIBC 288 mcg/dl 06/12/24 10:49 % Saturation 12.1 % (20-50) L 06/12/24 10:49 Unsat Iron Binding 253 ug/dL (112-347) 06/12/24 10:49 Total Bilirubin 0.8 mg/dL (0.15-1.2) 06/19/24 03:37 AST 25 U/L (0-40) 06/19/24 03:37 ALT 24 U/L (0-41) 06/19/24 03:37 Alkaline Phosphatase 156 U/L (40-130) H 06/19/24 03:37 Troponin T Baseline 68 ng/L (0-15) H 06/12/24 10:49 Troponin T Hi Sens 6Hr 55.98 ng/L (0-15) H 06/12/24 17:46 Troponin T Hi Sens 6Hr Delta -12.02 ng/L (0-12) L 06/12/24 17:46 C-Reactive Protein 59.9 mg/L (0.0-4.9) H 06/19/24 03:37 NT-Pro-B Natriuret Pep 75663 pg/mL (0-125) H 06/20/24 04:33 Total Protein 6.8 g/dL (6.6-8.7) 06/19/24 03:37 Albumin 3.5 g/dL (3.5-5.2) 06/19/24 03:37 Globulin 3.3 g/dL (1.3-4.6) 06/19/24 03:37 Triglycerides 46 mg/dL (0-150) 06/13/24 04:15 Cholesterol 88 mg/dL (0-200) 06/13/24 04:15 LDL Cholesterol, Calc 42 mg/dL (50-129) L 06/13/24 04:15 HDL Cholesterol 37 mg/dL (60-100) L 06/13/24 04:15 LDL/HDL Ratio 1.14 RATIO (0.00-3.22) 06/13/24 04:15 Cholesterol/HDL Ratio 2.38 mg/dL (1.0-5.00) 06/13/24 04:15 Vitamin B12 1965 pg/mL (232-1245) H 06/12/24 10:49 Folate 9.5 ng/mL (4.5-32.2) 06/13/24 04:15 Procalcitonin 0.41 ng/mL (0-0.5) 06/19/24 03:37 TSH 2.85 uIU/mL (0.27-4.20) 06/12/24 10:49 Random Cortisol 12.39 ug/dL (2.47-19.5) 06/14/24 03:57 Urine Color Yellow (Yellow) 06/12/24 17:00 Urine Appearance Slightly cloudy (CLEAR) 06/12/24 17:00 Urine pH 5 (5-7) 06/12/24 17:00 Ur Specific [place] 1.010 (1.005-1.030) 06/12/24 17:00 Urine Protein 1+ (Negative) H 06/12/24 17:00 Urine Glucose (UA) Norm (Normal) 06/12/24 17:00 Urine Ketones Negative (Negative) 06/12/24 17:00 Urine Blood 3+ (Negative) H 06/12/24 17:00 Urine Nitrate Negative (Negative) 06/12/24 17:00 Urine Bilirubin Neg (Negative) 06/12/24 17:00 Urine Urobilinogen Norm mg/dL (Negative) 06/12/24 17:00 Ur Leukocyte Esterase 1+ (Negative) H 06/12/24 17:00 Urine RBC >100 /hpf (0-2) H 06/12/24 17:00 Urine WBC 0-4 /hpf (0-5) H 06/12/24 17:00 Ur Squamous Epith Cells None /hpf (0-5) 06/12/24 17:00 Amorphous Sediment Not Reportable 06/12/24 17:00 Urine Bacteria Trace /hpf (NONE) 06/12/24 17:00 Hyaline Casts 0-4 /lpf H 06/12/24 17:00 Ur Random Sodium 52 mmol/L 06/12/24 17:00 Ur Random Potassium 43 mmol/L 06/12/24 17:00 Ur Random Chloride 73 mmol/L 06/12/24 17:00 Urine Creatinine 32 mg/dL (39-259) L 06/12/24 17:00 Nasal MRSA (PCR) Not detected ` (Negative) 06/12/24 17:43 Urine Opiates Screen Negative ng/mL (Negative) 06/12/24 17:00 Ur Barbiturates Screen Negative ng/mL (Negative) 06/12/24 17:00 Ur Phencyclidine Scrn Negative ng/mL (Negative) 06/12/24 17:00 Ur Amphetamines Screen Negative ng/mL (Negative) 06/12/24 17:00 U Benzodiazepines Scrn Negative ng/mL (Negative) 06/12/24 17:00 Urine Cocaine Screen Negative ng/mL (Negative) 06/12/24 17:00 U Marijuana (THC) Screen Negative ng/mL (Negative) 06/12/24 17:00 Coronavirus 229E (PCR) Not detected (NOT DETECT) 06/19/24 08:45 SARS-CoV-2 (PCR) Not detected (NOT DETECT) 06/19/24 08:45 MRSA (PCR) Cancelled 06/12/24 Unknown A&P Assessment and plan (1) Acute on chronic systolic heart failure: The IV Dobutrex may be discontinued after 48 hours. Patient is hypokalemic today. The potassium need to be corrected (2) Atherosclerosis of coronary artery of [place] heart without angina pectoris: Patient had the last coronary angiogram in 2021. The Myocardial perfusion imaging revealed only a small area of ischemia. Based on the findings, it would be appropriate to continue the medical treatment at this point. This was discussed with the patient and the family in detail. Shared decision was made to continue the medical treatment. Qualifiers: Coronary Disease-Associated Artery/Lesion type: [place] artery Qualified Code(s): I25.10 - Atherosclerotic heart disease of [place] coronary artery without angina pectoris (3) Ascites: Had the ultrasound examination today. Was found to have features of mild ascites in the perinephric and the perihepatic region. Persistent mass in the posterior lobe of the liver as mentioned above. Patient may benefit from oncology follow-up evaluations Qualifiers: Ascites type: other type Qualified Code(s): R18.8 - Other ascites (4) Hyperlipidemia: May continue on the current management. Qualifiers: Hyperlipidemia type: mixed hyperlipidemia Qualified Code(s): E78.2 - Mixed hyperlipidemia (5) Hypotension: Currently the blood pressure has improved. Qualifiers: Hypotension type: other hypotension type Qualified Code(s): I95.89 - Other hypotension (6) Diabetes: A the blood sugar seems to be fairly under control Qualifiers: Diabetes mellitus complication status: without complication Diabetes mellitus half-way insulin use: without technician terminal and repeater use Diabetes mellitus type: t ype 2 Qualified Code(s): E11.9 - Type 2 diabetes mellitus without complications (7) Acute on chronic renal failure: The BUN/creatinine seems persistently elevated. appreciate nephrology follow- up Qualifiers: Acute renal failure type: with other specified pathological lesion C hronic kidney disease stage: stage 2 (mild) Qualified Code(s): N17.8 - Other acute kidney failure; N18.2 - Chronic kidney disease, stage 2 (mild) Plan The other problems are Hypokalemia-need to be corrected Peripheral arterial disease COPD Hepatocellular carcinoma History of pancreatitis/pancreatic cyst Patient has a LifeVest. May continue on the current management Attestations 2 Medical Necessity Statement*: Deferred to the primary Coding Level of Care Code 01100 Diagnoses Acute on chronic systolic heart failure I50.23 Atherosclerosis of [place] coronary artery of [place] heart without angina pectoris I25.10 Coronary Disease-Associated Artery/Lesion type: [place] artery Other ascites R18.8 Ascites type: other type Mixed hyperlipidemia E78.2 Hyperlipidemia type: mixed hyperlipidemia Other specified hypotension I95.89 Hypotension type: other hypotension type Type 2 diabetes mellitus without complication, without long-term current use of insulin E11.9 Diabetes mellitus complication status: without complication Diabetes mellitus half-way insulin use: without technician terminal and repeater use Diabetes mellitus type: type 2 Acute renal failure with other specified pathological kidney lesion superimposed on stage 2 chronic kidney disease N17.8; N18.2 Acute renal failure type: with other specified pathological lesion Chronic kidney disease stage: stage 2 (mild)
--- NOTE | 2024-06-20 13:05 | PM.DCS ---
Discharge Providers Date of Admission: 06/12/24 14:08 Date of Discharge: June 20, 2024 Attending Provider at Admission: Cole Peraza MD Attending Provider at Discharge: Ben Smith MD Primary Care Provider: ABDULLAHI Matta Diagnoses at Discharge Discharge Diagnosis (1) Acute on chronic systolic heart failure: Status: Acute (2) Atherosclerosis of coronary artery of [place] heart without angina pectoris: Status: Acute Qualifiers: Coronary Disease-Associated Artery/Lesion type: [place] artery Qualified Code(s): I25.10 - Atherosclerotic heart disease of [place] coronary artery without angina pectoris (3) Ascites: Status: Acute Qualifiers: Ascites type: other type Qualified Code(s): R18.8 - Other ascites (4) Hyperlipidemia: Status: Acute Qualifiers: Hyperlipidemia type: mixed hyperlipidemia Qualified Code(s): E78.2 - Mixed hyperlipidemia (5) Hypotension: Status: Acute Qualifiers: Hypotension type: other hypotension type Qualified Code(s): I95.89 - Other hypotension (6) Diabetes: Status: Acute Qualifiers: Diabetes mellitus complication status: without complication Diabetes mellitus jail insulin use: without longitudinal float operator use Diabetes mellitus type: type 2 Qualified Code(s): E11.9 - Type 2 diabetes mellitus without complications (7) Acute on chronic renal failure: Status: Acute Qualifiers: Acute renal failure type: with other specified pathological lesion Chronic kidney disease stage: stage 2 (mild) Qualified Code(s): N17.8 - Other acute kidney failure; N18.2 - Chronic kidney disease, stage 2 (mild) Reason for Visit Reason for Visit: water buildup (gained 5lbs one day) Hospital Course Hospital Course This is a 74-year-old male with a past medical history of hepatocellular carcinoma follows up with [facility], CAD status post CABG, history of CKD stage IIIb, type 2 diabetes mellitus, hypertension, CHF who presents to [facility] due to shortness of breath Patient had a prolonged hospitalization look at my last progress note for further detail For patient's shortness of breath, likely secondary to ischemic cardiomyopathy, systolic CHF exacerbation, echo showed EF of 25%, received inpatient diuresis which was lackluster continued to have complaints of shortness of breath, patient was eventually started on a dobutamine drip with IV diuresis, patient overall clinically improved, -10 L, creatinine on discharge was 2.1. Patient was discharged on Lasix 40 mg daily with potassium replacement therapy, with recheck creatinine next week On admission patient had cardiogenic shock, cardiorenal syndrome, requiring cardiology consultation, requiring Levophed, weaned off Levophed, moved out of ICU For patient's ischemic cardiomyopathy, cardiology consulted, echocardiogram as below Dilated left-ventricular with a thinned out septum. Severe diffuse hypokinesia with an ejection fraction of 25%. Grade III/IV diastolic dysfunction (restrictive filling pattern), severely elevated filling pressures. Dilated right ventricle with a moderately diminished ejection fraction. Moderate biatrial enlargement Moderate-severe mitral valve regurgitation. Minimally thickened aortic valve. Mild tricuspid valve regurgitation. Estimated pulmonary artery peak systolic pressure 40 mmHg. Moderate pulmonary valve regurgitation. There is no pericardial effusion. There are no intracardiac masses. Compared to the study from 08/13/2023, there is significant drop in the LV ejection fraction from 45% to 25% Last angiogram from July 2022 showed patent [place] to LAD and venous graft to PDA with total occlusion of venous graft to obtuse marginal and diagonal arteries with severely elevated diastolic pressures for which medical treatment was opted. -Cardiac stress testing as below IMPRESSIONS 1. Myocardial perfusion imaging revealing extensive areas of myocardial scarring mostly in the distribution of all 3 coronary arteries more so in the distribution of the left anterior descending artery and circumflex artery with subtle areas of ischemia mostly in th circumflex artery distribution. 2. Markedly diminished LV ejection fraction of 16%. 3. Segmental wall motion analysis revealing severe diffuse hypokinesia of the left ventricle. 4. Markedly dilated LV cavity with an end-systolic volume of 237 mL Compared to the study from 07/18/2022, the ischemic burden appears to be much less(the summed score difference of 11 versus 2). The LV ejection fraction appears to be has any fairly decreased with a significant enlargement of the left ventricle. These features may suggest extensive reverse remodeling. -Given patient's creatinine of 2.1, evidence of WHIT, cardiorenal syndrome, after discussion with patient and cardiology, shared decision making, have elected to medical management -Continue home aspirin, Plavix, beta-radha, with a close follow-up cardiology as outpatient -Patient was advised if he were to have any chest pain to go to the emergency room -Discharged with [facility] in place ? In terms of patient's further testing, patient will follow-up with cardiology as outpatient, shared decision making about pursuing coronary angiography ? Given patient's elevated creatinine, states 3B CKD, he has a high risk of contrast-induced nephropathy, high risk of requiring dialysis, which patient would like to avoid ? Follow-up with cardiology as outpatient about if and when to pursue coronary angiography For patient's acute on chronic renal failure baseline CKD stage IIIb, patient's hospitalization was complicated by elevated creatinine, up to 3.0, nephrology was consulted, likely from patient's systolic CHF, cardiorenal syndrome, creatinine improved with dobutamine drip and IV diuresis, creatinine discharge is 2.1. 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 Stable mixed echogenicity heterogeneous mass in the RIGHT hepatic lobe compatible with history of HCC. This measures approximately 8.4 x 7.3 x 7.[address] 06/12/2024 2. Cirrhotic liver. 3. Normal gallbladder. 4. Simple cyst RIGHT kidney measuring 1.8 x 1.6 cm 5. Mild perihepatic and perisplenic ascites. -I have discussed this in detail with patient and his , patient is to follow-up at [facility], follow-up with their oncologist, patient tells me that it has been since April since he has had any imaging done at Counts include [facility] beds at the [facility] Physical Exam Const: COMMON NORMALS: no acute distress and patient oriented x3 Resp: COMMON NORMALS: normal respiratory effort, No retractions, No use of accessory muscles and clear to auscultation bilaterally AUSCULTATION: clear to auscultation bilaterally Cardio: COMMON NORMALS: regular rate, regular rhythm, S1 normal heart sound present and S2 normal heart sound present RATE: regular rate RHYTHM: regular rhythm HEART SOUNDS: S1 normal heart sound present and S2 normal heart sound present GI: COMMON NORMALS: Normal to inspection, nondistended, normoactive bowel sounds present and non-tender Extremity: COMMON NORMALS: no pedal edema Neuro: COMMON NORMALS: patient oriented x3 Psych: COMMON NORMALS: mental status grossly normal Urinary Catheter Management: Blair: Cath Placed During This Visit: yes, but has since been removed by the nurse Reason for Continuing Indwelling Catheter: Accurate Measurement of Urinary Output in Critically Ill Patients Urinary Catheter Date of Insertion: 06/12/24 Urinary Catheter Time of Insertion: 14:01 Date Urinary Catheter Removed: 06/20/24 Time Urinary Catheter Discontinued: 09:00 Discharge Data Studies Completed and Pending Completed Studies During Hospitalization Category Date Time Status CT abdomen pelvis wo con [id number] Stat Cat Scan 06/12/24 12:05 Completed CXRP [XR chest 1V portable [id number]] Stat Exams 06/13/24 13:15 Completed Sestamibi Stress Test Request Routine Exams 06/16/24 12:38 Draft XR chest 1V portable [id number] Routine Exams 06/19/24 07:00 Completed XR chest 1V portable [id number] Stat Exams 06/12/24 10:35 Completed NM eric perf SPECT r/s* [id number] Routine Nuc Med 06/17/24 12:38 Completed CV. echo complete* [id number] Routine Ultrasound 06/12/24 15:57 Completed US abdomen complete* [id number] Routine Ultrasound 06/19/24 12:54 Completed US renal BI* [id number] Routine Ultrasound 06/18/24 15:47 Completed Pending at discharge Category Date Time Status Basic Metabolic Panel AM LABS Lab 06/21/24 04:00 Ordered Basic Metabolic Panel AM LABS Lab 06/22/24 04:00 Ordered Complete Blood Count w/Auto AM LABS Lab 06/21/24 04:00 Ordered Lactate (Lactic Acid level) AM LABS Lab 06/21/24 04:00 Ordered Magnesium AM LABS Lab 06/21/24 04:00 Ordered Magnesium AM LABS Lab 06/22/24 04:00 Ordered NT Pro B Type Natriuretic Pept QAM Lab 06/21/24 06:00 Ordered Phosphorus AM LABS Lab 06/21/24 04:00 Ordered Phosphorus AM LABS Lab 06/22/24 04:00 Ordered Radiology Impressions Abdomen/Pelvis CT 06/12/24 12:05 IMPRESSION: 1. No renal obstruction. Mild perinephric stranding. 2. New small to moderate amount of ascites. 3. Soft tissue anasarca. 4. Stable small LEFT pleural effusion. 5. Cirrhotic liver with a known mass in the posterior RIGHT lobe which is noted to be hepatocellular carcinoma. 6. Cardiomegaly. Renal Ultrasound 06/18/24 15:47 IMPRESSION: 1. Limited evaluation of the kidneys due to body habitus. 2. No hydronephrosis. 3. Stable cyst upper pole RIGHT kidney. Chest X-Ray 06/19/24 07:00 IMPRESSION: Mild CHF. Abdomen Ultrasound 06/19/24 12:54 IMPRESSION: 1. Stable mixed echogenicity heterogeneous mass in the RIGHT hepatic lobe compatible with history of HCC. This measures approximately 8.4 x 7.3 x 7.[address] 06/12/2024 2. Cirrhotic liver. 3. Normal gallbladder. 4. Simple cyst RIGHT kidney measuring 1.8 x 1.6 cm 5. Mild perihepatic and perisplenic ascites. Laboratory Results WBC 10.71 10^3/uL (3.29-11.43) 06/20/24 04:33 RBC 3.49 10^6/uL (3.85-5.65) L 06/20/24 04:33 Hgb 8.80 g/dL (11.27-16.99) L 06/20/24 04:33 Hct 27.9 % (37-53) L 06/20/24 04:33 MCV 79.9 fl (82-101) L 06/20/24 04:33 MCH 25.2 pg (27-33) L 06/20/24 04:33 MCHC 31.5 g/dL (30-55) 06/20/24 04:33 RDW 20.7 % (12.1-15.1) H 06/20/24 04:33 Plt Count 202 10^3/cmm (157-399) 06/20/24 04:33 MPV 9.8 fL (7.4-10.4) 06/20/24 04:33 Neut % (Auto) 82.1 % 06/20/24 04:33 Lymph % (Auto) 4.9 % 06/20/24 04:33 Dent % (Auto) 9.2 % 06/20/24 04:33 Eos % (Auto) 2.9 % 06/20/24 04:33 Baso % (Auto) 0.3 % 06/20/24 04:33 Neut # (Auto) 8.81 10^3/uL (1.8-7.7) H 06/20/24 04:33 Lymph # (Auto) 0.5 10^3/uL (0.8-4.8) L 06/20/24 04:33 Dent # (Auto) 1.0 10^3/uL (0.2-0.9) H 06/20/24 04:33 Eos # (Auto) 0.3 10^3/uL (0.0-0.8) 06/20/24 04:33 Baso # (Auto) 0.0 10^3/uL (0.0-0.1) 06/20/24 04:33 Nucleated RBC % (auto) 0 % 06/20/24 04:33 Nucleated RBCs # 0.0 /100WBC 06/20/24 04:33 D-Dimer 2.26 ug/mLFEU (0-0.59) H 06/12/24 10:49 Sodium 136 mmol/L (136-145) 06/20/24 04:33 Potassium 3.0 mmol/L (3.5-5.1) L 06/20/24 04:33 Chloride 90 mmol/L (98-107) L 06/20/24 04:33 Carbon Dioxide 30 mmol/L (22-29) H 06/20/24 04:33 Anion Gap 19.0 (5-19) 06/20/24 04:33 BUN 93 mg/dL (8-23) H* 06/20/24 04:33 Creatinine 2.1 mg/dL (0.7-1.2) H 06/20/24 04:33 GFR Calculation Not Reportable 06/20/24 04:33 Glucose 110 mg/dL (65-115) 06/20/24 04:33 POC Glucose 270 mg/dL (70-110) H 06/20/24 11:49 Estimat Average Glucose 123 06/13/24 04:15 Hemoglobin A1c 5.9 % (4.0-6.0) 06/13/24 04:15 Calculated Osmolality 311 mOsm/kg (285-295) H 06/20/24 04:33 Lactic Acid 1.9 mmol/L (0.5-2.2) 06/12/24 10:49 Lactate 1.1 mmol/L (0.5-2.2) 06/20/24 04:33 Calcium 8.5 mg/dL (8.5-10.5) 06/20/24 04:33 Phosphorus 3.6 mg/dL (2.5-4.5) 06/20/24 04:33 Magnesium 2.3 mg/dL (1.7-2.3) 06/20/24 04:33 Iron 35 ug/dL (59-158) L 06/12/24 10:49 TIBC 288 mcg/dl 06/12/24 10:49 % Saturation 12.1 % (20-50) L 06/12/24 10:49 Unsat Iron Binding 253 ug/dL (112-347) 06/12/24 10:49 Total Bilirubin 0.8 mg/dL (0.15-1.2) 06/19/24 03:37 AST 25 U/L (0-40) 06/19/24 03:37 ALT 24 U/L (0-41) 06/19/24 03:37 Alkaline Phosphatase 156 U/L (40-130) H 06/19/24 03:37 Troponin T Baseline 68 ng/L (0-15) H 06/12/24 10:49 Troponin T Hi Sens 6Hr 55.98 ng/L (0-15) H 06/12/24 17:46 Troponin T Hi Sens 6Hr Delta -12.02 ng/L (0-12) L 06/12/24 17:46 C-Reactive Protein 59.9 mg/L (0.0-4.9) H 06/19/24 03:37 NT-Pro-B Natriuret Pep 65998 pg/mL (0-125) H 06/20/24 04:33 Total Protein 6.8 g/dL (6.6-8.7) 06/19/24 03:37 Albumin 3.5 g/dL (3.5-5.2) 06/19/24 03:37 Globulin 3.3 g/dL (1.3-4.6) 06/19/24 03:37 Triglycerides 46 mg/dL (0-150) 06/13/24 04:15 Cholesterol 88 mg/dL (0-200) 06/13/24 04:15 LDL Cholesterol, Calc 42 mg/dL (50-129) L 06/13/24 04:15 HDL Cholesterol 37 mg/dL (60-100) L 06/13/24 04:15 LDL/HDL Ratio 1.14 RATIO (0.00-3.22) 06/13/24 04:15 Cholesterol/HDL Ratio 2.38 mg/dL (1.0-5.00) 06/13/24 04:15 Vitamin B12 1965 pg/mL (232-1245) H 06/12/24 10:49 Folate 9.5 ng/mL (4.5-32.2) 06/13/24 04:15 Procalcitonin 0.41 ng/mL (0-0.5) 06/19/24 03:37 TSH 2.85 uIU/mL (0.27-4.20) 06/12/24 10:49 Random Cortisol 12.39 ug/dL (2.47-19.5) 06/14/24 03:57 Urine Color Yellow (Yellow) 06/12/24 17:00 Urine Appearance Slightly cloudy (CLEAR) 06/12/24 17:00 Urine pH 5 (5-7) 06/12/24 17:00 Ur Specific [place] 1.010 (1.005-1.030) 06/12/24 17:00 Urine Protein 1+ (Negative) H 06/12/24 17:00 Urine Glucose (UA) Norm (Normal) 06/12/24 17:00 Urine Ketones Negative (Negative) 06/12/24 17:00 Urine Blood 3+ (Negative) H 06/12/24 17:00 Urine Nitrate Negative (Negative) 06/12/24 17:00 Urine Bilirubin Neg (Negative) 06/12/24 17:00 Urine Urobilinogen Norm mg/dL (Negative) 06/12/24 17:00 Ur Leukocyte Esterase 1+ (Negative) H 06/12/24 17:00 Urine RBC >100 /hpf (0-2) H 06/12/24 17:00 Urine WBC 0-4 /hpf (0-5) H 06/12/24 17:00 Ur Squamous Epith Cells None /hpf (0-5) 06/12/24 17:00 Amorphous Sediment Not Reportable 06/12/24 17:00 Urine Bacteria Trace /hpf (NONE) 06/12/24 17:00 Hyaline Casts 0-4 /lpf H 06/12/24 17:00 Ur Random Sodium 52 mmol/L 06/12/24 17:00 Ur Random Potassium 43 mmol/L 06/12/24 17:00 Ur Random Chloride 73 mmol/L 06/12/24 17:00 Urine Creatinine 32 mg/dL (39-259) L 06/12/24 17:00 Nasal MRSA (PCR) Not detected ` (Negative) 06/12/24 17:43 Urine Opiates Screen Negative ng/mL (Negative) 06/12/24 17:00 Ur Barbiturates Screen Negative ng/mL (Negative) 06/12/24 17:00 Ur Phencyclidine Scrn Negative ng/mL (Negative) 06/12/24 17:00 Ur Amphetamines Screen Negative ng/mL (Negative) 06/12/24 17:00 U Benzodiazepines Scrn Negative ng/mL (Negative) 06/12/24 17:00 Urine Cocaine Screen Negative ng/mL (Negative) 06/12/24 17:00 U Marijuana (THC) Screen Negative ng/mL (Negative) 06/12/24 17:00 Coronavirus 229E (PCR) Not detected (NOT DETECT) 06/19/24 08:45 SARS-CoV-2 (PCR) Not detected (NOT DETECT) 06/19/24 08:45 MRSA (PCR) Cancelled 06/12/24 Unknown Vitals Last Vital Signs Temp 97.8 F 06/20/24 12:00 Pulse 87 06/20/24 12:00 Resp 18 06/20/24 12:00 BP 98/54 06/20/24 12:00 Pulse Ox 97 06/20/24 12:00 O2 Del Method Nasal Cannula 06/20/24 12:00 O2 Flow Rate 2 06/20/24 12:00 Discharge Plan Discharge Patient Disposition: Home Condition: Stable Prescriptions: New polyethylene glycol 3350 17 gram Powder In Packet 17 g PO DAILY PRN (Reason: constipation) 30 Days Qty: 30 0RF metoprolol tartrate 25 mg Tablet 12.5 mg PO BID@0900,2100 30 Days Qty: 30 0RF Protonix 40 mg tablet,delayed release (DR/EC) 40 mg PO BID 30 Days Qty: 60 0RF Carafate 1 gram tablet 1 g PO BID 28 Days Qty: 56 0RF Continued fluticasone propionate [Allergy Relief (fluticasone)] 50 mcg/actuation spray,suspension 1 spray INTRANASAL BID Rx Instructions: administer into each nostril albuterol sulfate [ProAir HFA] 90 mcg/actuation HFA aerosol inhaler 2 puff inhalation Q6H PRN (Reason: Shortness Of Breath Or Wheezing) clopidogrel 75 mg tablet 75 mg PO BEDTIME lovastatin 40 mg tablet 20 mg PO BEDTIME methocarbamol 750 mg tablet 750 mg PO Q12H PRN (Reason: Muscle Pain) Coricidin HBP Chest Ayaan-Cough 10-200 mg capsule 1 tab-cap PO Q4H PRN (Reason: Cold Symptoms) ascorbate calcium (vitamin C) 500 mg tablet 500 mg PO QAM magnesium oxide 400 mg magnesium capsule 400 mg PO QAM nitroglycerin [Nitrostat] 0.4 mg tablet, sublingual 0.4 mg SUBLINGUAL Q5M PRN (Reason: Chest Pain) Qty: 30 2RF Rx Instructions: do not exceed 3 doses per episode aspirin 81 mg Tablet,Delayed Release (Dr/Ec) 81 mg PO QAM insulin aspart U-100 [Novolog FlexPen U-100 Insulin] 100 unit/mL (3 mL) insulin pen See Rx Instructions .Route .COMPLEX PRN (Reason: blood sugar) Rx Instructions: Inject, subcu, 3 times daily as needed, after meals, based on sliding scale provided sulfasalazine 500 mg Tablet 500 mg PO BID fluticasone propion-salmeterol [Wixela Inhub] 250-50 mcg/dose Blister With Device 1 inh INHALATION BID cyanocobalamin (vitamin B-12) [Vitamin B-12] 1,000 mcg Tablet 1,000 mcg PO QAM lactase [Lactaid] 3,000 unit Tablet 3,000 unit PO QID PRN (Reason: dairy allergy) Rx Instructions: administer with meals and/or snacks cholecalciferol (vitamin D3) [Vitamin D3] 10 mcg (400 unit) Tablet 400 unit PO QAM vitamin E 268 mg (400 unit) Capsule 1 cap PO QAM diclofenac sodium 1 % Gel 2 g TOPICAL QID PRN (Reason: Pain) Rx Instructions: apply to single elbow, wrist or hand; for hand includes palm/fingers/back of hand ammonium lactate 12 % lotion 1 applic topical DAILY PRN (Reason: unknown) guaifenesin [Mucinex] 600 mg tablet extended release 12hr 1,200 mg PO Q12H PRN (Reason: Congestion) Changed furosemide 40 mg tablet 40 mg PO DAILY 30 Days Qty: 30 0RF Lantus U-100 Insulin 100 unit/mL solution 5 unit SUBCUT BID Qty: 10 0RF potassium chloride 10 mEq tablet extended release 10 meq PO DAILY 30 Days Qty: 30 0RF Discontinued glipizide 5 mg tablet 5 mg PO DAILY metolazone 5 mg tablet 5 mg PO DAILY Qty: 10 6RF Rx Instructions: TAKE IN THE MORNING 1 HOUR BEFORE TAKING LASIX FOR 10 DAYS metformin 1,000 mg Tablet 500 mg PO BID PRN (Reason: Pain) carvedilol 25 mg Tablet 25 mg PO BID Rx Instructions: must administer with a meal/food hydralazine 25 mg tablet 25 mg PO BID isosorbide mononitrate 30 mg tablet extended release 24 hr 30 mg PO QAM valsartan 160 mg tablet See Rx Instructions .ROUTE .COMPLEX Rx Instructions: Take 80mg (1/2 tab) by mouth in the am No Action (DME) 2 Pairs of Diabetic Shoes With 2 Custom Molded Inserts See Rx Instructions .Route .MEDSUPPLY Qty: 1 0RF Rx Instructions: Directed by [facility] Discharge Orders: Discharge Order (Routine); Ordered 06/20/24 Ordered By: Ben Smith Referrals: Patrice Overton DO [Physician] - 2 weeks Cholo Fay MD [Physician] - (June AT [address] FAY. PLEASE COME AT 0930 TO DO PAPERWORK. APPOINTMENT WITH DR. OVERTON JUNE ) Rizwana Ruano, STRUCTURAL IRONWORKER [Primary Care Provider] - 1-3 days Discharge Diet: Cardiac Discharge Activity: Resume usual activity Patient Instructions: Anemia, Chronic Kidney Disease (GEN), Chronic Kidney Disease Diet (GEN), Hyponatremia (GEN), Opioid Safety Activity Restrictions/Additional Instructions: - For your heart failure, take Lasix 40 mg once daily with potassium replacement therapy ? Please have your primary care provider recheck your kidney function and your potassium on Monday ? Your creatinine on discharge 2.1, your BUN is 93 ? If you have worsening shortness of breath or edema please come back to the emergency room ? 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 If you have any chest pain please come back to the emergency room ? Please follow-up with cardiology in 1 week ? For type 2 diabetes Lantus 5 units twice daily ? Insulin sliding scale -Please monitor your blood sugars closely -Monitor your blood sugars 3 times daily as after meals -Please record your blood sugars, and a blood sugar log -For your NovoLog -Please inject blood sugar after meals based on sliding scale provided -Do not inject insulin if you do not eat as hypoglycemia kills -This is a NovoLog sliding scale -Insulin sliding ?fingerstick? Insulin ?141-180?0 units/sq 181-220?2 units/sq ?221-260?4 units/sq ?261-300 6 units/sq ?301-350?8 units/sq ?351-400 10 units/sq ?401-450?12 units/sq >450? 14units/sq -If your blood sugar is greater than 500 go to the emergency room -If your blood sugar is less than 60 or at anytime you feel lightheaded or dizzy or diaphoretic or have chest palpitations check your blood sugar, and eat a hard candy or drink orange juice and go immediately to the emergency room -Remember hypoglycemia kills, so if his blood sugar is less than 60 we have to increase it by taking in a sugary meal such as a hard candy or orange juice and go to the emergency room -If you have any questions please call us where here to help -For your hepatocellular carcinoma, please follow-up with your oncologist at [facility], our measurements of the mass is 6.2 x 8.[address] without contrast ? Please monitor for bloody or black stools if so please go to the emergency room ? Please check your hemoglobin next week, hemoglobin discharge 8.8 -If your hemoglobin remains low within a month or drops any further please follow-up with general surgery in 2 to 4 weeks for consideration of EGD Discharge Attestations Time Spent in Discharge Care*: greater than 30 min Status at Discharge: Cognitive status at discharge: cognitively intact, Behavioral status at discharge: cooperative, Quality Metrics Clinical Quality Measures [ No reported AMI, CVA or VTE this stay] Coding Level of Care Code 08115 Total time (in minutes) for Discharge: 45 Diagnoses Acute on chronic systolic heart failure I50.23 Atherosclerosis of [place] coronary artery of [place] heart without angina pectoris I25.10 Coronary Disease-Associated Artery/Lesion type: [place] artery Other ascites R18.8 Ascites type: other type Mixed hyperlipidemia E78.2 Hyperlipidemia type: mixed hyperlipidemia Other specified hypotension I95.89 Hypotension type: other hypotension type Type 2 diabetes mellitus without complication, without long-term current use of insulin E11.9 Diabetes mellitus complication status: without complication Diabetes mellitus jail insulin use: without jail use Diabetes mellitus type: type 2 Acute renal failure with other specified pathological kidney lesion superimposed on stage 2 chronic kidney disease N17.8; N18.2 Acute renal failure type: with other specified pathological lesion Chronic kidney disease stage: stage 2 (mild)
--- NOTE | 2024-06-20 15:03 | PC.NURSE ---
Patient discharged to home. Instruction provided regarding follow up appointments, new medications with changes. Patient and spouse both verbalized complete understanding. Patient received meds to bed prior to discharge. Patient taken by wheelchair to private vehicle. All IVs and cardona catheter removed for discharge.
== END 2024-06-20 15:03 | disposition home or self-care (01) | DRG 291 ==
LOC: ER 12:18 → ICU 14:11 → CSU 06-15 15:05
PROVIDERS: Emergency Medicine; Admitting Provider Student in an Organized Health Care Education/Training Program; Emergency Provider Emergency Medicine; PCP Nurse Practitioner; Visit Provider Family Medicine
DX: I13.0 Hypertensive heart and chronic kidney disease with heart failure and stage 1 through stage 4 chronic kidney disease, or unspecified chronic kidney disease (principal); I50.23 Acute on chronic systolic (congestive) heart failure; R57.0 Cardiogenic shock; N17.9 Acute kidney failure, unspecified; C22.0 Liver cell carcinoma; E87.1 Hypo-osmolality and hyponatremia; R18.8 Other ascites; I25.10 Atherosclerotic heart disease of native coronary artery without angina pectoris; Z95.1 Presence of aortocoronary bypass graft; Z79.82 Long term (current) use of aspirin; Z79.899 Other long term (current) drug therapy; Z79.4 Long term (current) use of insulin; Z88.8 Allergy status to other drugs, medicaments and biological substances; Z88.0 Allergy status to penicillin; I25.2 Old myocardial infarction; J44.9 Chronic obstructive pulmonary disease, unspecified; E11.22 Type 2 diabetes mellitus with diabetic chronic kidney disease; Z95.5 Presence of coronary angioplasty implant and graft; Z80.1 Family history of malignant neoplasm of trachea, bronchus and lung; Z83.3 Family history of diabetes mellitus; Z82.49 Family history of ischemic heart disease and other diseases of the circulatory system; Z87.891 Personal history of nicotine dependence; I25.5 Ischemic cardiomyopathy; E78.2 Mixed hyperlipidemia; R04.0 Epistaxis; I95.89 Other hypotension; N18.32 Chronic kidney disease, stage 3b; D64.9 Anemia, unspecified; I25.709 Atherosclerosis of coronary artery bypass graft(s), unspecified, with unspecified angina pectoris
CPT/HCPCS: 36415; 36416; 36573; 36592; 51702; 71045; 74176; 76700; 76770; 78452; 80048; 80053; 80061; 80306; 81001; 82436; 82533; 82570; 82607; 82746; 82962; 83036; 83540; 83550; 83605; 83735; 83880; 84100; 84133; 84145; 84300; 84443; 84484; 85025; 85378; 86140; 86403; 87040; 87086; 87635; 93005; 93017; 93306; 94640; 94664; 96365; 96372; 96375; 96376; 97116; 97161; 99285; A9500; C1751; J0885; J1250; J1644; J1815; J1940; J2405; J2470; J2785; J3480; J3490; J7626; Q3014; Q4081

== ENCOUNTER → 2024-06-25 08:10 | Outpatient (BNVA) | payer OTHER, SELFPAY | PROVIDERS: PCP Nurse Practitioner; Visit Provider Podiatrist Foot & Ankle Surgery | DX: L60.3 Nail dystrophy (principal); E11.42 Type 2 diabetes mellitus with diabetic polyneuropathy; M20.41 Other hammer toe(s) (acquired), right foot; M20.42 Other hammer toe(s) (acquired), left foot; L84 Corns and callosities; Z79.4 Long term (current) use of insulin | CPT/HCPCS: 11056; 11721 ==

== ENCOUNTER → 2024-07-04 08:11 | Outpatient (BNVA) | payer OTHER, SELFPAY | PROVIDERS: PCP Nurse Practitioner; Visit Provider Student in an Organized Health Care Education/Training Program | DX: K92.2 Gastrointestinal hemorrhage, unspecified (principal) | CPT/HCPCS: 99203; 99214 ==

== ENCOUNTER 2024-07-12 15:49 | Emergency (ER) | payer OTHER, SELFPAY ==
[2024-07-12 16:00] VITALS: BP 104/68; PULSE 91; RESP 17; TEMP 36.3; O2SAT 96; BMI 29.5
--- NOTE | 2024-07-12 16:00 | ECG_ITS ---
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1950 Requested By: Garth Solitario Order Number: [id number] Reading MD: ELIDA RIZZO Measurements Intervals [place] Rate: 92 P: -61 DC: 161 QRS: 248 QRSD: 136 T: 6 QT: 397 QTc: 493 Interpretive Statements Sinus RHYTHM RIGHT AXIS DEVIATION [QRS AXIS > 100] RIGHT BUNDLE BRANCH BLOCK [120+ ms QRS DURATION, UPRIGHT V1, 40+ ms S IN I/aVL/V4/V5/V6] POSSIBLE ANTERIOR MYOCARDIAL INFARCTION , OF INDETERMINATE AGE [30 ms Q WAVE IN V3/V4, OR R < 0.2 mV IN V4] ST DEPRESSION, CONSIDER SUBENDOCARDIAL INJURY [0.1+ mV ST DEPRESSION] Compared to ECG 06/12/2024 16:52:53 Ventricular premature complex(es) no longer present First degree AV block no longer present Electronically Signed On 07-13-2024 18:10:18 CDT by ELIDA RIZZO [email or web address]
--- NOTE | 2024-07-12 16:00 | XRR_ITS ---
PROCEDURE INFORMATION: Exam: XR Chest Exam date and time: 07/12/2024 4:53 PM Age: 74 years old Clinical indication: Shortness of breath; Additional info: SOB TECHNIQUE: Imaging protocol: Radiologic exam of the chest. Views: 1 view. COMPARISON: CR (CHEST, ) 06/19/2024 5:43 AM FINDINGS: Lungs: No focal consolidation. Pleural spaces: No evidence of pneumothorax. Possible small left-sided pleural effusion. Heart/Mediastinum: Postsurgical changes of the mediastinum compatible with prior CABG. Bones/joints: No evidence of acute osseous abnormality. XR/XR chest 1V portable [id number] IMPRESSION: 1. Possible small left-sided pleural effusion.
--- NOTE | 2024-07-12 16:48 | ED_ITS ---
HPI - SOB/Dyspnea 2 General: Chief Complaint: Shortness of Breath/Dyspnea Stated Complaint: retaining fluid, SOB Time Seen by Provider: 07/12/24 16:37 Source: patient and family Mode of arrival: ambulatory Limitations: no limitations History of Present Illness: HPI Narrative: This patient made his way to the [facility] part today because he is concerned about possible urinary retention and fluid overload. He has a history of chronic congestive heart failure as well as chronic kidney disease and coronary artery disease. He has had previous coronary artery bypass as well as stents placed post CABG. He states his weight has been improved at 212 pounds from a high of 220 pounds recently. He states that he has not had any chest pain and his shortness of breath is intermittent and unpredictable at times. He has been taking all his usual medications as prescribed. He felt more distended and thought he might be having some urinary retention. He did take Ditropan earlier today and just prior to coming back to the emergency department he states he had a bowel movement and urinated quite a bit and actually feels much better. Denies any recent illness. He is limiting his fluids as directed. He wears oxygen at home MD elicited complaint: shortness of breath Pertinent past history: COPD and congestive heart failure Associated symptoms: Deny abdominal pain, chest pain, extremity pain, fever(s), nausea, palpitations, syncope or vomiting Related Data Home Medications Medication Instructions Recorded Confirmed aspirin 81 mg tablet,delayed 81 mg PO QAM 01/02/21 07/04/24 release albuterol sulfate 90 mcg/actuation 2 puff inhalation Q6H PRN 01/25/21 07/04/24 aerosol inhaler (ProAir HFA) Shortness Of Breath Or Wheezing clopidogrel 75 mg tablet 75 mg PO BEDTIME 01/25/21 07/04/24 fluticasone propionate 50 1 spray intranasal BID 04/20/21 07/04/24 mcg/actuation nasal spray,suspension (Allergy Relief (fluticasone)) lovastatin 40 mg tablet 20 mg PO BEDTIME 04/20/21 07/04/24 methocarbamol 750 mg tablet 750 mg PO Q12H PRN Muscle Pain 04/20/21 07/04/24 dextromethorphan-guaifenesin 10 1 tab-cap PO Q4H PRN Cold Symptoms 11/29/21 07/04/24 mg-200 mg capsule (Coricidin HBP Chest Congestion-Cough) ascorbate calcium (vitamin C) 500 500 mg PO QAM 07/05/22 07/04/24 mg tablet magnesium oxide 400 mg PO QAM 07/05/22 07/04/24 ammonium lactate 12 % lotion 1 applic topical DAILY PRN unknown 08/13/23 07/04/24 cholecalciferol (vitamin D3) 10 400 unit PO QAM 08/13/23 07/04/24 mcg (400 unit) tablet (Vitamin D3) cyanocobalamin (vitamin B-12) 1,000 mcg PO QAM 08/13/23 07/04/24 1,000 mcg tablet (Vitamin B-12) diclofenac sodium 1 % topical gel 2 g topical QID PRN Pain 08/13/23 07/04/24 fluticasone 250 mcg-salmeterol 50 1 inh inhalation BID 08/13/23 07/04/24 mcg/dose blistr powdr for inhalation (Wixela Inhub) guaifenesin 600 mg tablet, 1,200 mg PO Q12H PRN Congestion 08/13/23 07/04/24 extended release 12 hr (Mucinex) lactase 3,000 unit tablet (Lactaid) 3,000 unit PO QID PRN dairy allergy 08/13/23 07/04/24 vitamin E 268 mg (400 unit) capsule 1 cap PO QAM 08/13/23 07/04/24 insulin aspart U-100 100 unit/mL See Rx Instructions .Route 12/08/23 07/04/24 (3 mL) subcutaneous pen (Novolog .COMPLEX PRN blood sugar FlexPen U-100 Insulin aspart) sulfasalazine 500 mg tablet 500 mg PO BID 06/12/24 07/04/24 Previous Rx's Medication Instructions Recorded nitroglycerin 0.4 mg sublingual 0.4 mg sublingual Q5M PRN Chest 01/22/24 tablet (Nitrostat) Pain #30 tabs furosemide 40 mg tablet 40 mg PO DAILY Edema 30 days #30 06/20/24 tabs insulin glargine 100 unit/mL 5 unit (0.05 mL) SUBCUT BID #10 mL 06/20/24 subcutaneous solution (Lantus U-100 Insulin) metoprolol tartrate 25 mg tablet 12.5 mg (1/2 x 25 mg) PO 06/20/24 BID@0900,2100 30 days #30 tabs pantoprazole 40 mg tablet,delayed 40 mg PO BID 30 days #60 tabs 06/20/24 release (Protonix) polyethylene glycol 3350 17 gram 17 g PO DAILY PRN constipation 30 06/20/24 oral powder packet days #30 ea potassium chloride 10 mEq 10 meq PO DAILY Edema 30 days #30 06/20/24 tablet,extended release tabs sucralfate 1 gram tablet (Carafate) 1 g PO BID 4 weeks #56 tabs 06/20/24 empagliflozin 10 mg tablet 10 mg PO DAILY 30 days #30 tabs 07/04/24 (Jardiance) Diabetic Shoes With Custom Molded #1 ea 07/10/24 Inserts Allergies Allergy/AdvReac Type Severity Reaction Status Date / Time clindamycin Allergy Severe ADR/ALGY-Pa Verified 07/12/24 16:03 lpitations lactose Allergy Mild ADR-Abdominal Verified 07/12/24 16:03 Pain montelukast Allergy Mild dyspnea Verified 07/12/24 16:03 apricot Allergy Unknown Verified 07/12/24 16:03 Penicillins Allergy Unknown Verified 07/12/24 16:03 Review of Systems 2 Const: Denies: fever(s) ENMT: Denies: throat pain, odynophagia, nasal discharge, nasal congestion or nasal obstruction Card: Denies: chest pain, palpitations, irregular heart rhythm, syncope or pre-syncope Resp: Reports: dyspnea and non-productive cough; Denies: productive cough, wheezing or stridor GI: Denies: abdominal pain, nausea, vomiting or diarrhea : Reports: difficulty urinating and oliguria; Denies: flank pain or urinary frequency Musc: Denies: neck pain, back pain, extremity pain or extremity swelling Skin/Breast: Denies: rash or pruritus Neuro: Denies: headache(s), numbness in extremities or weakness in extremities Psych: Denies: anxiety or depression Khari/Lymph: Reports: easy bruising PFSH ED 2 PFSH: Medical History Ischemic heart disease due to coronary artery obstruction Chronic systolic (congestive) heart failure Ischemic cardiomyopathy Sacroiliac dysfunction CKD (chronic kidney disease) Arthralgia Anemia Umbilical hernia, incarcerated Acute kidney injury Normochromic normocytic anemia Atherosclerosis of coronary artery of [place] heart without angina pectoris Sepsis Pleural effusion Community acquired pneumonia NSTEMI (non-ST elevated myocardial infarction) CHF exacerbation Restrictive lung disease Pneumonia Pancreatic cyst Pancreatitis Diabetes Hyperlipidemia Hypertension COPD (chronic obstructive pulmonary disease) Surgical History H/O esophagogastroduodenoscopy Hx of CABG History of coronary angioplasty with insertion of stent History of colonoscopy with polypectomy Family History Brother CAD (coronary artery disease) Diabetes Lung disease Sister CAD (coronary artery disease) Diabetes Cancer Lung disease Father CAD (coronary artery disease) Diabetes Lung disease Mother CAD (coronary artery disease) Diabetes Stroke Brother CAD (coronary artery disease) Diabetes Lung disease Brother CAD (coronary artery disease) Diabetes Sister CAD (coronary artery disease) Diabetes Lung disease Sister CAD (coronary artery disease) Diabetes Sister CAD (coronary artery disease) Diabetes Daughter Chronic kidney disease (CKD) Diabetes Denies family history of Clotting disorder Dementia Suicide Anesthesia complication Bleeding disorder Social History Smoking and tobacco/nicotine status: former use of tobacco/nicotine Quit status (tobacco/nicotine): has quit using Year quit tobacco: 1984 [id number] Second hand smoke exposure: No Alcohol intake: former Substance/Drug Use: never Adopted: No Caregiver/support person: Yes Lives independently: Yes Household members: spouse Housing: House Marital status: service: Yes Current occupational status: retired Pets and animals: No Leisure activites: exercise Sexually active: No Do you think of yourself as: Straight/Heterosexual Current gender identity: Male Mayra/Baptist: Baptism Special mayra needs: No Agree to transfusion: No Physical Exam 2 Narrative: EXAM NARRATIVE: Elderly gentleman who appears to be comfortable. He makes good eye contact. Interacts in a appropriate fashion. Const: COMMON NORMALS: no acute distress, patient oriented x3 and alert G ENERAL APPEARANCE: cooperative and comfortable NUTRITIONAL APPEARANCE: o verweight HENMT: COMMON NORMALS: normocephalic, Normal nasal mucous membranes and turbinates present, moist oral mucous membranes and oropharynx normal HEAD & SCALP: normocephalic FACE & SINUS: normal facial exam NOSE: Normal nasal mucous membranes and turbinates present Eye: COMMON NORMALS: Equal, round and reactive pupils present, EOMs intact bilaterally and conjunctivae normal CONJUNCTIVA: Yes conjunctivae normal P UPIL: Yes Equal, round and reactive pupils present Neck/C-Spine: COMMON NORMALS: full ROM, no lymphadenopathy, no JVD and No carotid bruits Chest: COMMONS NORMALS: normal inspection of the chest and normal palpation of entire chest wall Resp: COMMON NORMALS: normal respiratory effort, No retractions, No use of accessory muscles and clear to auscultation bilaterally AUSCULTATION: clear to auscultation bilaterally Cardio: COMMON NORMALS: no JVD, regular rate, regular rhythm, No murmurs present (Cardio) and Peripheral pulses 2+ throughout RATE: regular rate R HYTHM: regular rhythm PERIPHERAL PULSES: Peripheral pulses 2+ throughout GI: COMMON NORMALS: Soft to palpation and non-tender INSPECTION: Yes central obesity PALPATION: Yes Soft to palpation OTHER: He has central obesity but soft nontender abdomen. He does have evidence of a soft nonprotuberant mass in his umbilicus which is nontender. Back/Pelvis: COMMON NORMALS: no thoracic nor lumbar tenderness and thoraco- lumbar ROM normal Extremity: COMMON NORMALS: normal to inspection, full ROM, capillary refill normal, no calf tenderness and no pedal edema Neuro: COMMON NORMALS: patient oriented x3, moves all extremities, no focal motor deficits and no sensory deficits noted SENSORIUM/ORIENTATION: Yes alert OTHER: The patient was noted to easily rise from a sitting position in his wheelchair and transfer to the examination bed in the emergency department any difficulty in doing so unaided Psych: COMMON NORMALS: mental status grossly normal Skin: COMMON NORMALS: no rashes or lesions noted, turgor normal and no jaundice GENERAL SKIN EXAM: no rashes or lesions noted and turgor normal Course 2 Reevaluation(s): Reevaluation #1: Patient is clinically still doing well and looks good with reassuring vital signs. Of note is his BNP is up over previous BNP's. While again there is some lack of strong correlation with BNP levels at either extreme I think that likely his BNP is up due to his urinary retention and reduction in his diuresis. Will go ahead and place a Blair and have him wear this for approximately 1 week and then to allow his bladder to decompress and see if he is able to overcome urinary retention. Likely he will need urology follow-up ultimately. No evidence at this time of significant clinical picture that suggest he needs hospitalization. Time: 18:26 Vital Signs: Vital signs: Vital Signs Temperature 97.4 F L 07/12/24 16:00 Pulse Rate 94 07/12/24 18:16 Respiratory Rate 19 H 07/12/24 18:16 Blood Pressure 102/53 07/12/24 18:16 Pulse Oximetry 99 07/12/24 18:16 Oxygen Delivery Me thod Room Air 07/12/24 18:16 MDM - SOB/Dyspnea Medical Decision Making This patient came to the emergency department because he has been feeling full and sensation of incomplete emptying of his bladder. He also has symptoms of associated shortness of breath as noted in the HPI. Clinical examination revealed reassuring vital signs as well as a clear chest on auscultation. Workup included ancillary studies chest x-ray etc. to evaluate his chronic congestive heart failure status as well as evaluate him for urinary retention. On initial bladder scan noted a large amount of retained urine which remained elevated greater than 250 mL after spontaneous voiding.. His BNP was elevated greater than that which has been recently. I reviewed his past echocardiograms which did reveal that his ejection fraction has markedly diminished over the past 12 months. Likely in a spiraling course of chronic congestive heart failure. His symptoms did improve subjectively after a bowel movement and then spontaneous voiding prior to arrival to the emergency department and continue to improve after emptying of his bladder. Blair catheter was placed because of his urinary retention and will be left in place for 1 week and then it will be removed either in the emergency department or at his home. It is felt that his urinary retention might be a contributing factor to his subjective symptoms given the fact that he is not able to diurese effectively. We discussed all current findings with the patient and spouse and they voiced understanding and were appreciative of care. We discussed return precaution as well. Medical Records I reviewed the patient's medical records. Dilated left-ventricular with a thinned out septum. Severe diffuse hypokinesia with an ejection fraction of 25%. Grade III/IV diastolic dysfunction (restrictive filling pattern), severely elevated filling pressures. This is a decreased ejection fraction from that of 45% which was noted in 2022. Lab Data I reviewed the patient's lab results. 07/12/24 16:54 07/12/24 16:54 Labs/Radiology: Laboratory Results WBC 7.68 10^3/uL (3.29-11.43) 07/12/24 16:54 RBC 4.35 10^6/uL (3.85-5.65) 07/12/24 16:54 Hgb 10.30 g/dL (11.27-16.99) L 07/12/24 16:54 Hct 35.2 % (37-53) L 07/12/24 16:54 MCV 80.9 fl (82-101) L 07/12/24 16:54 MCH 23.7 pg (27-33) L 07/12/24 16:54 MCHC 29.3 g/dL (30-55) L 07/12/24 16:54 RDW 20.2 % (12.1-15.1) H 07/12/24 16:54 Plt Count 232 10^3/cmm (157-399) 07/12/24 16:54 MPV 9.8 fL (7.4-10.4) 07/12/24 16:54 Neut % (Auto) 84.5 % 07/12/24 16:54 Lymph % (Auto) 5.1 % 07/12/24 16:54 Donley % (Auto) 8.1 % 07/12/24 16:54 Eos % (Auto) 1.6 % 07/12/24 16:54 Baso % (Auto) 0.4 % 07/12/24 16:54 Neut # (Auto) 6.50 10^3/uL (1.8-7.7) 07/12/24 16:54 Lymph # (Auto) 0.4 10^3/uL (0.8-4.8) L 07/12/24 16:54 Donley # (Auto) 0.6 10^3/uL (0.2-0.9) 07/12/24 16:54 Eos # (Auto) 0.1 10^3/uL (0.0-0.8) 07/12/24 16:54 Baso # (Auto) 0.0 10^3/uL (0.0-0.1) 07/12/24 16:54 Nucleated RBC % (auto) 0.3 % 07/12/24 16:54 Nucleated RBCs # 0.0 /100WBC 07/12/24 16:54 Sodium 133 mmol/L (136-145) L 07/12/24 16:54 Potassium 4.6 mmol/L (3.5-5.1) 07/12/24 16:54 Chloride 95 mmol/L (98-107) L 07/12/24 16:54 Carbon Dioxide 26 mmol/L (22-29) 07/12/24 16:54 Anion Gap 16.6 (5-19) 07/12/24 16:54 BUN 64 mg/dL (8-23) H 07/12/24 16:54 Creatinine 2.2 mg/dL (0.7-1.2) H 07/12/24 16:54 GFR Calculation Not Reportable 07/12/24 16:54 Glucose 217 mg/dL (65-115) H 07/12/24 16:54 Calculated Osmolality 301 mOsm/kg (285-295) H 07/12/24 16:54 Calcium 8.4 mg/dL (8.5-10.5) L 07/12/24 16:54 Total Bilirubin 0.6 mg/dL (0.15-1.2) 07/12/24 16:54 AST 24 U/L (0-40) 07/12/24 16:54 ALT 13 U/L (0-41) 07/12/24 16:54 Alkaline Phosphatase 203 U/L (40-130) H 07/12/24 16:54 NT-Pro-B Natriuret Pep 85616 pg/mL (0-125) H 07/12/24 16:54 Total Protein 7.2 g/dL (6.6-8.7) 07/12/24 16:54 Albumin 3.6 g/dL (3.5-5.2) 07/12/24 16:54 Globulin 3.6 g/dL (1.3-4.6) 07/12/24 16:54 Urine Color Yellow (Yellow) 07/12/24 17:59 Urine Appearance Clear (CLEAR) 07/12/24 17:59 Urine pH 5.0 (5-7) 07/12/24 17:59 Ur Specific [place] 1.019 (1.005-1.030) 07/12/24 17:59 Urine Protein Negative (Negative) 07/12/24 17:59 Urine Glucose (UA) 2+ (Normal) H 07/12/24 17:59 Urine Ketones Negative (Negative) 07/12/24 17:59 Urine Blood Negative (Negative) 07/12/24 17:59 Urine Nitrate Negative (Negative) 07/12/24 17:59 Urine Bilirubin Negative (Negative) 07/12/24 17:59 Urine Urobilinogen 0.2 mg/dL (Negative) 07/12/24 17:59 Ur Leukocyte Esterase Negative (Negative) 07/12/24 17:59 Urine RBC 0-2 /hpf (0-2) 07/12/24 17:59 Urine WBC 0-5 /hpf (0-5) 07/12/24 17:59 Ur Squamous Epith Cells 0-5 /hpf (0-5) 07/12/24 17:59 Amorphous Sediment Not Reportable 07/12/24 17:59 Urine Bacteria None seen /hpf (NONE) 07/12/24 17:59 Hyaline Casts 7.01 /lpf 07/12/24 17:59 All radiology interpretation(s) finalized by discharge EKG Data EKG 1: I personally reviewed and interpreted this EKG as follows: Interpretation: Contemporaneous review of resting EKG reveals a ventricular rate of 92 bpm. Normal DC interval, normal QRS duration, normal corrected QT interval. Extreme rightward axis noted. This electrocardiogram does not appear to be significantly or notably changed from previous tracings within the system. Discharge Plan Discharge Patient Disposition: Home Clinical Impression: Urinary retention, Chronic congestive heart failure Condition: Stable Prescriptions: No Action fluticasone propionate [Allergy Relief (fluticasone)] 50 mcg/actuation spray,suspension 1 spray INTRANASAL BID Rx Instructions: administer into each nostril albuterol sulfate [ProAir HFA] 90 mcg/actuation HFA aerosol inhaler 2 puff inhalation Q6H PRN (Reason: Shortness Of Breath Or Wheezing) clopidogrel 75 mg tablet 75 mg PO BEDTIME lovastatin 40 mg tablet 20 mg PO BEDTIME methocarbamol 750 mg tablet 750 mg PO Q12H PRN (Reason: Muscle Pain) Coricidin HBP Chest Ayaan-Cough 10-200 mg capsule 1 tab-cap PO Q4H PRN (Reason: Cold Symptoms) ascorbate calcium (vitamin C) 500 mg tablet 500 mg PO QAM magnesium oxide 400 mg magnesium capsule 400 mg PO QAM nitroglycerin [Nitrostat] 0.4 mg tablet, sublingual 0.4 mg SUBLINGUAL Q5M PRN (Reason: Chest Pain) Qty: 30 2RF Rx Instructions: do not exceed 3 doses per episode Jardiance 10 mg tablet 10 mg PO DAILY 30 Days Qty: 30 5RF (DME) Diabetic Shoes With Custom Molded Inserts See Rx Instructions .Route .MEDSUPPLY Qty: 1 0RF Rx Instructions: Directed by [facility] aspirin 81 mg Tablet,Delayed Release (Dr/Ec) 81 mg PO QAM insulin aspart U-100 [Novolog FlexPen U-100 Insulin] 100 unit/mL (3 mL) insulin pen See Rx Instructions .Route .COMPLEX PRN (Reason: blood sugar) Rx Instructions: Inject, subcu, 3 times daily as needed, after meals, based on sliding scale provided sulfasalazine 500 mg Tablet 500 mg PO BID polyethylene glycol 3350 17 gram Powder In Packet 17 g PO DAILY PRN (Reason: constipation) 30 Days Qty: 30 0RF metoprolol tartrate 25 mg Tablet 12.5 mg PO BID@0900,2100 30 Days Qty: 30 0RF furosemide 40 mg tablet 40 mg PO DAILY 30 Days Qty: 30 0RF Lantus U-100 Insulin 100 unit/mL solution 5 unit SUBCUT BID Qty: 10 0RF potassium chloride 10 mEq tablet extended release 10 meq PO DAILY 30 Days Qty: 30 0RF Protonix 40 mg tablet,delayed release (DR/EC) 40 mg PO BID 30 Days Qty: 60 0RF Carafate 1 gram tablet 1 g PO BID 28 Days Qty: 56 0RF fluticasone propion-salmeterol [Wixela Inhub] 250-50 mcg/dose Blister With Device 1 inh INHALATION BID cyanocobalamin (vitamin B-12) [Vitamin B-12] 1,000 mcg Tablet 1,000 mcg PO QAM lactase [Lactaid] 3,000 unit Tablet 3,000 unit PO QID PRN (Reason: dairy allergy) Rx Instructions: administer with meals and/or snacks cholecalciferol (vitamin D3) [Vitamin D3] 10 mcg (400 unit) Tablet 400 unit PO QAM vitamin E 268 mg (400 unit) Capsule 1 cap PO QAM diclofenac sodium 1 % Gel 2 g TOPICAL QID PRN (Reason: Pain) Rx Instructions: apply to single elbow, wrist or hand; for hand includes palm/fingers/back of hand ammonium lactate 12 % lotion 1 applic topical DAILY PRN (Reason: unknown) guaifenesin [Mucinex] 600 mg tablet extended release 12hr 1,200 mg PO Q12H PRN (Reason: Congestion) Discharge Orders: Discharge ED (Routine); Ordered 07/12/24 Ordered By: García Metzger Referrals: Rizwana Ruano, [employer] [Primary Care Provider] - 4-7 days (ed follow up) Discharge Diet: Usual diet and Low Salt Discharge Activity: Increase activity as tolerated Patient Instructions: Blair Catheter Care, Blair Catheter Removal (DC), Opioid Safety, Pain Management Activity Restrictions/Additional Instructions: As we discussed we placed the catheter in your bladder to help decompress your bladder and also allow you to get rid of extra fluids you have been retaining in your bladder. You do have worsening heart failure from that you had a year ago and it is important that you follow your fluid restriction recommendations from cardiology. You should also continue all your usual medications. We have placed a consultation in for urology to follow-up with you regarding tensional need for other treatments for urinary retention. Believe the current catheter in place for 1 week and then you may either remove it at home or return to the emergency department to have it removed. Coding Level of Care Code ED Director Work for Georges Sanderson
[2024-07-12 17:01] LABS: Basophils % 0.4 %; Eosinophils # 0.1 10^3/uL (0.0-0.8); Eosinophils % 1.6 %; Hematocrit 35.2 % (37-53); Lymphocytes # 0.4 10^3/uL (0.8-4.8); Lymphocytes % 5.1 %; Mean Corpuscular HGB Conc 29.3 g/dL (30-55); Mean Corpuscular Hemoglobin 23.7 pg (27-33); Mean Corpuscular Volume 80.9 fl (82-101); Mean Platelet Volume 9.8 fL (7.4-10.4); Monocytes # 0.6 10^3/uL (0.2-0.9); Monocytes % 8.1 %; Neutrophils % 84.5 %; Nucleated Red Blood Cells % 0.3 %; Platelet Count 232 10^3/cmm (157-399); Red Blood Count 4.35 10^6/uL (3.85-5.65); Red Cell Distribution Width 20.2 % (12.1-15.1); White Blood Count 7.68 10^3/uL (3.29-11.43)
[2024-07-12 17:44] LABS: Alanine Aminotransferase 13 U/L (0-41); Albumin Level 3.6 g/dL (3.5-5.2); Alkaline Phosphatase 203 U/L (40-130); Anion Gap 16.6 (5-19); Aspartate Amino Transferase 24 U/L (0-40); Blood Urea Nitrogen 64 mg/dL (8-23); Calcium 8.4 mg/dL (8.5-10.5); Carbon Dioxide 26 mmol/L (22-29); Chloride 95 mmol/L (98-107); Creatinine Clr Calc Pharmacy 35.9081; Globulin 3.6 g/dL (1.3-4.6); Glucose 217 mg/dL (65-115); Osmolality Calculated 301 mOsm/kg (285-295); Potassium 4.6 mmol/L (3.5-5.1); Sodium 133 mmol/L (136-145); Total Bilirubin 0.6 mg/dL (0.15-1.2); Total Protein 7.2 g/dL (6.6-8.7)
[2024-07-12 18:04] LABS: NT Pro B Type Natriuretic Pept 35849 pg/mL (0-125)
[2024-07-12 18:07] LABS: Bilirubin Urine Negative (Negative); Blood Urine Negative (Negative); Glucose Urine UA 2+ (Normal); Ketones Urine Negative (Negative); Leukocyte Esterase Urine Negative (Negative); Nitrate Urine Negative (Negative); Protein Urine Negative (Negative); Specific Gravity, Urine 1.019 (1.005-1.030); Urine Appearance Clear (CLEAR); Urine Color Yellow (Yellow); Urobilinogen Urine 0.2 mg/dL (Negative)
[2024-07-12 18:10] LABS: Add Urine Microscopic? YES; Bacteria Urine None Seen /hpf; Hyaline Casts Urine 7.01 /lpf; RBC Urine 0-2 /hpf (0-2); Squamous Epithelial Cell Urine 0-5 /hpf (0-5); WBC Urine 0-5 /hpf (0-5)
[2024-07-12 18:16] VITALS: BP 102/53; PULSE 94; RESP 19; O2SAT 99
[2024-07-12] MEDS: lidocaine 2% Urojet 20 mL TOPICAL (18:34)
[2024-07-12 20:13] VITALS: BP 116/68; PULSE 96; RESP 16; O2SAT 96
== END 2024-07-12 20:20 | disposition home or self-care (01) ==
PROVIDERS: Emergency Medicine; Emergency Provider Emergency Medicine; PCP Nurse Practitioner
DX: I13.0 Hypertensive heart and chronic kidney disease with heart failure and stage 1 through stage 4 chronic kidney disease, or unspecified chronic kidney disease (principal); E11.22 Type 2 diabetes mellitus with diabetic chronic kidney disease; N18.9 Chronic kidney disease, unspecified; I50.9 Heart failure, unspecified; R33.9 Retention of urine, unspecified; Z79.02 Long term (current) use of antithrombotics/antiplatelets; Z79.82 Long term (current) use of aspirin; Z79.4 Long term (current) use of insulin; Z87.891 Personal history of nicotine dependence; Z95.1 Presence of aortocoronary bypass graft; Z95.5 Presence of coronary angioplasty implant and graft; I25.10 Atherosclerotic heart disease of native coronary artery without angina pectoris; I25.2 Old myocardial infarction; E78.5 Hyperlipidemia, unspecified; J44.9 Chronic obstructive pulmonary disease, unspecified
CPT/HCPCS: 36415; 51702; 71045; 80053; 81001; 83880; 85025; 93005; 99285

== ENCOUNTER 2024-07-19 10:51 | Inpatient (IN) | payer OTHER, MEDICARE, SELFPAY ==
[2024-07-19] VITALS (11 sets, daily range): BP systolic 102–129; BP diastolic 64–77; PULSE 86–99; RESP 12–22; TEMP 36.4–36.7; O2SAT 93–98; BMI 30.1
--- NOTE | 2024-07-19 10:53 | XR_ITS ---
WS: [id number] Exam: XR chest 1V portable [id number] Date/Time of Exam: 07/19/2024 11:19 AM Reason For Exam: sob Comparison 07/12/2024. There is cardiac enlargement. Small bibasal pleural effusions are noted. Slightly increased pulmonary vascularity. Signs of previous CABG surgery. The mediastinum and osseous thorax are unremarkable. XR/XR chest 1V portable [id number] IMPRESSION: 1. Cardiac enlargement with small bibasal pleural effusions. Consider mild CHF.
--- NOTE | 2024-07-19 10:54 | ECG_ITS ---
[facility] Test Date: 2024-07-19 Pat Name: Torey Kaba Department: Room: Gender: Male Regulatory Administrator: : [id number] Requested By: Garth Solitario Order Number: [id number] Lianna MD: Cholo Kelsey M.D. Measurements Intervals [place] Rate: 89 P: -58 AR: 173 QRS: -60 QRSD: 136 T: 0 QT: 408 QTc: 498 Interpretive Statements SINUS RHYTHM LEFT AXIS DEVIATION [QRS AXIS < -30] RIGHT BUNDLE BRANCH BLOCK [120+ ms QRS DURATION, UPRIGHT V1, 40+ ms S IN I/aVL/V4/V5/V6] POSSIBLE ANTERIOR MYOCARDIAL INFARCTION , OF INDETERMINATE AGE [30 ms Q WAVE IN V3/V4, OR R < 0.2 mV IN V4] ST DEPRESSION, CONSIDER SUBENDOCARDIAL INJURY [0.1+ mV ST DEPRESSION] Compared to ECG 07/12/2024 16:04:22 Left-axis deviation now present Right-axis deviation no longer present Myocardial infarct finding still present ST (T wave) deviation still present Electronically Signed On 07-22-2024 00:11:26 CDT by Cholo Kelsey M.D. [email or web address]
--- NOTE | 2024-07-19 11:19 | ED_ITS ---
HPI - Weakness 2 General: Chief complaint: Weakness Stated complaint: retaining fluid,fluid coming out of pores Time Seen by Provider: 07/19/24 11:07 History of Present Illness: 74-year-old male presents the emergency department chief complaint of having progressive abdominal discomfort and edema. Patient has reported history of both renal and kidney issues as well as congestive heart failure. Patient was recently seen here approximately-1 week ago had a full workup that revealed his chronic heart failure with no acute process patient denies any palpitations or chest pain with his mild shortness of breath he is on his current chronic oxygen requirement patient endorses additional concerns of kidney disease recently he had a placed a Blair catheter due to urinary retention approximately a week to week and a half ago which is due to come out patient endorses he has had some swelling and edema in both of his legs he denies any other associated symptoms besides some mild chills. Patient denies any recent sick or ill contacts or any other associated symptoms. Patient does endorse that he has been placed onto a taper of diuretic to which she is under the second day of it but it does not seem to be helping any of his symptoms. Location: generalized Associated symptoms: Denies chest pain, chills, fever(s), headache(s), nausea or vomiting Review of Systems 2 General: Reports: 10 or more systems reviewed and unremarkable except in HPI and below Const: Denies: fever(s), chills, fatigue or malaise Eyes: Denies: change in vision or blurry vision Card: Denies: chest pain or palpitations Resp: Reports: dyspnea (Intermittent no acute change appreciated); Denies: productive cough GI: Denies: nausea or vomiting : Denies: flank pain Musc: Reports: extremity swelling (Mild pitting edema appreciated bilateral lower extremities); Denies: extremity pain Skin/Breast: Denies: rash or pruritus Neuro: Denies: headache(s) Psych: Denies: anxiety or depression Khari/Lymph: Denies: easy bleeding All/Imm: Denies: urticaria, throat swelling or facial swelling PFSH ED 2 PFSH: Medical History Ischemic heart disease due to coronary artery obstruction Chronic systolic (congestive) heart failure Ischemic cardiomyopathy Sacroiliac dysfunction CKD (chronic kidney disease) Arthralgia Anemia Umbilical hernia, incarcerated Acute kidney injury Normochromic normocytic anemia Atherosclerosis of coronary artery of [place] heart without angina pectoris Sepsis Pleural effusion Community acquired pneumonia NSTEMI (non-ST elevated myocardial infarction) CHF exacerbation Restrictive lung disease Pneumonia Pancreatic cyst Pancreatitis Diabetes Hyperlipidemia Hypertension COPD (chronic obstructive pulmonary disease) Surgical History H/O esophagogastroduodenoscopy Hx of CABG History of coronary angioplasty with insertion of stent History of colonoscopy with polypectomy Family History Brother CAD (coronary artery disease) Diabetes Lung disease Sister CAD (coronary artery disease) Diabetes Cancer Lung disease Father CAD (coronary artery disease) Diabetes Lung disease Mother CAD (coronary artery disease) Diabetes Stroke Brother CAD (coronary artery disease) Diabetes Lung disease Brother CAD (coronary artery disease) Diabetes Sister CAD (coronary artery disease) Diabetes Lung disease Sister CAD (coronary artery disease) Diabetes Sister CAD (coronary artery disease) Diabetes Daughter Chronic kidney disease (CKD) Diabetes Denies family history of Clotting disorder Dementia Suicide Anesthesia complication Bleeding disorder Social History Smoking and tobacco/nicotine status: former use of tobacco/nicotine Quit status (tobacco/nicotine): has quit using Year quit tobacco: 1984 [id number] Second hand smoke exposure: No Alcohol intake: former Substance/Drug Use: never Adopted: No Caregiver/support person: Yes Lives independently: Yes Household members: spouse Housing: House Marital status: service: Yes Current occupational status: retired Pets and animals: No Leisure activites: exercise Sexually active: No Do you think of yourself as: Straight/Heterosexual Current gender identity: Male Mayra/Sikhism: Moravian Special mayra needs: No Agree to transfusion: No Physical Exam 2 Const: COMMON NORMALS: no acute distress, patient oriented x3 and healthy appearing HENMT: COMMON NORMALS: normocephalic and atraumatic HEAD & SCALP: n ormocephalic and atraumatic Eye: COMMON NORMALS: Equal, round and reactive pupils present and EOMs intact bilaterally PUPIL: Yes Equal, round and reactive pupils present Neck/C-Spine: COMMON NORMALS: full ROM, supple and no JVD Lymph: LYMPHATIC: no lymphadenopathy noted Chest: COMMONS NORMALS: normal inspection of the chest and normal palpation of entire chest wall Resp: COMMON NORMALS: normal respiratory effort, No retractions and clear to auscultation bilaterally EFFORT & INSPECTION: Yes able to speak in complete sentences and Yes symmetric chest movement AUSCULTATION: clear to auscultation bilaterally Cardio: COMMON NORMALS: no JVD, regular rate and regular rhythm RATE: r egular rate RHYTHM: regular rhythm GI: COMMON NORMALS: Soft to palpation and non-tender; negative for Normal to inspection, nondistended, normoactive bowel sounds present (Abdomen appears to be moderately distended no guarding or rebound appreciat) INSPECTION: Yes normal to inspection PALPATION: Yes Soft to palpation : COMMON NORMALS: Yes no CVA tenderness BLADDER/KIDNEY EXAM: Yes no CVA tenderness Back/Pelvis: COMMON NORMALS: no CVA tenderness Extremity: COMMON NORMALS: normal to inspection and full ROM; negative for no pedal edema (Moderate bilateral pitting edema appreciated) Neuro: COMMON NORMALS: patient oriented x3, CN's II-XII intact bilaterally, moves all extremities and no focal motor deficits Psych: COMMON NORMALS: mental status grossly normal, Normal thought process present, cooperative and normal affect THOUGHT PROCESS: Normal thought process present Skin: COMMON NORMALS: no rashes or lesions noted GENERAL SKIN EXAM: no rashes or lesions noted Course 2 Vital Signs: Vital signs: Vital Signs Temperature 98.1 F 07/19/24 11:10 Pulse Rate 91 07/19/24 13:43 Respiratory Rate 16 07/19/24 13:43 Blood Pressure 102/66 07/19/24 13:43 Pulse Oximetry 95 07/19/24 13:43 Oxygen Delivery Me thod Nasal Cannula 07/19/24 13:43 Oxygen Flow Rate 2 07/19/24 11:10 MDM - Weakness Medical Decision Making Due to patient's symptoms and condition additional cardio renal workup will be obtained we will continue to follow. In which we will compare the previous records on the patient compared to prior ER as well as cardiology per the patient's his most recent weight is 216 pounds initially about a 5 weeks ago he is down to 220 down to 12 now he is increased a little bit patient does not appear in any obvious acute respiratory distress at this time we will continue to follow. 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 Laurent hospitalist has granted acceptance to the CCU unit. Lab Data 07/19/24 11:01 07/19/24 11:01 Radiology Impressions Chest X-Ray 07/19/24 10:53 IMPRESSION: 1. Cardiac enlargement with small bibasal pleural effusions. Consider mild CHF. Laboratory Results WBC 7.59 10^3/uL (3.29-11.43) 07/19/24 11:01 RBC 4.20 10^6/uL (3.85-5.65) 07/19/24 11:01 Hgb 9.70 g/dL (11.27-16.99) L 07/19/24 11:01 Hct 35.3 % (37-53) L 07/19/24 11:01 MCV 84.0 fl (82-101) 07/19/24 11:01 MCH 23.1 pg (27-33) L 07/19/24 11:01 MCHC 27.5 g/dL (30-55) L 07/19/24 11:01 RDW 20.6 % (12.1-15.1) H 07/19/24 11:01 Plt Count 219 10^3/cmm (157-399) 07/19/24 11:01 MPV 9.7 fL (7.4-10.4) 07/19/24 11:01 Neut % (Auto) 86.1 % 07/19/24 11:01 Lymph % (Auto) 5.0 % 07/19/24 11:01 Haakon % (Auto) 7.5 % 07/19/24 11:01 Eos % (Auto) 0.7 % 07/19/24 11:01 Baso % (Auto) 0.3 % 07/19/24 11:01 Neut # (Auto) 6.54 10^3/uL (1.8-7.7) 07/19/24 11:01 Lymph # (Auto) 0.4 10^3/uL (0.8-4.8) L 07/19/24 11:01 Haakon # (Auto) 0.6 10^3/uL (0.2-0.9) 07/19/24 11:01 Eos # (Auto) 0.1 10^3/uL (0.0-0.8) 07/19/24 11:01 Baso # (Auto) 0.0 10^3/uL (0.0-0.1) 07/19/24 11:01 Nucleated RBC % (auto) 0.8 % 07/19/24 11:01 Nucleated RBCs # 0.1 /100WBC 07/19/24 11:01 Sodium 131 mmol/L (136-145) L 07/19/24 11:01 Potassium 5.6 mmol/L (3.5-5.1) H 07/19/24 11:01 Chloride 97 mmol/L (98-107) L 07/19/24 11:01 Carbon Dioxide 17 mmol/L (22-29) L 07/19/24 11:01 Anion Gap 22.6 (5-19) H 07/19/24 11:01 BUN 66 mg/dL (8-23) H 07/19/24 11:01 Creatinine 2.2 mg/dL (0.7-1.2) H 07/19/24 11:01 GFR Calculation Not Reportable 07/19/24 11:01 Glucose 209 mg/dL (65-115) H 07/19/24 11:01 POC Glucose 213 mg/dL (70-110) H 07/19/24 13:20 Calculated Osmolality 297 mOsm/kg (285-295) H 07/19/24 11:01 Lactic Acid 2.2 mmol/L (0.5-2.2) 07/19/24 13:13 Calcium 8.3 mg/dL (8.5-10.5) L 07/19/24 11:01 Total Bilirubin 0.7 mg/dL (0.15-1.2) 07/19/24 11:01 AST 25 U/L (0-40) 07/19/24 11:01 ALT 12 U/L (0-41) 07/19/24 11:01 Alkaline Phosphatase 206 U/L (40-130) H 07/19/24 11:01 Troponin T Baseline 52 ng/L (0-15) H 07/19/24 11:01 Troponin T 120 Minute 52.46 ng/L (0-15) H 07/19/24 13:13 Delta Troponin T 0.46 ABS# (0-10) 07/19/24 13:13 NT-Pro-B Natriuret Pep 85804 pg/mL (0-125) H 07/19/24 11:01 Total Protein 6.8 g/dL (6.6-8.7) 07/19/24 11:01 Albumin 3.2 g/dL (3.5-5.2) L 07/19/24 11:01 Globulin 3.6 g/dL (1.3-4.6) 07/19/24 11:01 Urine Color Yellow (Yellow) 07/19/24 11:52 Urine Appearance Clear (CLEAR) 07/19/24 11:52 Urine pH 5.5 (5-7) 07/19/24 11:52 Ur Specific [place] 1.016 (1.005-1.030) 07/19/24 11:52 Urine Protein Trace (Negative) A 07/19/24 11:52 Urine Glucose (UA) 2+ (Normal) H 07/19/24 11:52 Urine Ketones Negative (Negative) 07/19/24 11:52 Urine Blood 1+ (Negative) A 07/19/24 11:52 Urine Nitrate Negative (Negative) 07/19/24 11:52 Urine Bilirubin Negative (Negative) 07/19/24 11:52 Urine Urobilinogen 0.2 mg/dL (Negative) 07/19/24 11:52 Ur Leukocyte Esterase 1+ (Negative) A 07/19/24 11:52 Urine RBC 6-10 /hpf (0-2) 07/19/24 11:52 Urine WBC 0-5 /hpf (0-5) 07/19/24 11:52 Ur Squamous Epith Cells 0-5 /hpf (0-5) 07/19/24 11:52 Amorphous Sediment Not Reportable 07/19/24 11:52 Urine Bacteria None seen /hpf (NONE) 07/19/24 11:52 Hyaline Casts 31.43 /lpf 07/19/24 11:52 XR interpretation done by ED provider, pending radiology final review Discharge Plan Discharge Patient Disposition: Admitted As Inpatient Admit Provider: Wilfrid Laurent Clinical Impression: Acute exacerbation of CHF (congestive heart failure), Chronic kidney disease, Hyperkalemia Condition: Stable Coding Level of Care Code ED Electrician Radio for Chg Fwd Related Data Home Medications Medication Instructions Recorded Confirmed aspirin 81 mg tablet,delayed 81 mg PO QAM 01/02/21 07/19/24 release clopidogrel 75 mg tablet 75 mg PO BEDTIME 01/25/21 07/19/24 fluticasone propionate 50 1 spray intranasal BID 04/20/21 07/19/24 mcg/actuation nasal spray,suspension (Allergy Relief (fluticasone)) magnesium oxide 400 mg PO QAM 07/05/22 07/19/24 diclofenac sodium 1 % topical gel 2 g topical QID PRN Pain 08/13/23 07/19/24 fluticasone 250 mcg-salmeterol 50 1 inh inhalation BID 08/13/23 07/19/24 mcg/dose blistr powdr for inhalation (Wixela Inhub) insulin aspart U-100 100 unit/mL See Rx Instructions .Route 12/08/23 07/19/24 (3 mL) subcutaneous pen (Novolog .COMPLEX PRN blood sugar FlexPen U-100 Insulin aspart) sulfasalazine 500 mg tablet 500 mg PO BID 06/12/24 07/19/24 carvedilol 25 mg tablet 25 mg PO BID 07/19/24 07/19/24 insulin glargine 100 unit/mL 38 unit SUBCUT BID 07/19/24 07/19/24 subcutaneous solution (Lantus U-100 Insulin) lovastatin 20 mg tablet 20 mg PO DAILY 07/19/24 07/19/24 sucralfate 1 gram tablet 1 g PO BID 07/19/24 07/19/24 Previous Rx's Medication Instructions Recorded nitroglycerin 0.4 mg sublingual 0.4 mg sublingual Q5M PRN Chest 01/22/24 tablet (Nitrostat) Pain #30 tabs furosemide 40 mg tablet 40 mg PO DAILY Edema 30 days #30 06/20/24 tabs metoprolol tartrate 25 mg tablet 12.5 mg (1/2 x 25 mg) PO 06/20/24 BID@0900,2100 30 days #30 tabs pantoprazole 40 mg tablet,delayed 40 mg PO BID 30 days #60 tabs 06/20/24 release (Protonix) potassium chloride 10 mEq 10 meq PO DAILY Edema 30 days #30 06/20/24 tablet,extended release tabs empagliflozin 10 mg tablet 10 mg PO DAILY 30 days #30 tabs 07/04/24 (Jardiance) Diabetic Shoes With Custom Molded #1 ea 07/10/24 Inserts Allergies Allergy/AdvReac Type Severity Reaction Status Date / Time clindamycin Allergy Severe ADR/ALGY-Pa Verified 07/12/24 16:03 lpitations lactose Allergy Mild ADR-Abdominal Verified 07/12/24 16:03 Pain montelukast Allergy Mild dyspnea Verified 07/12/24 16:03 apricot Allergy Unknown Verified 07/12/24 16:03 Penicillins Allergy Unknown Verified 07/12/24 16:03
[2024-07-19 11:30] LABS: Basophils % 0.3 %; Eosinophils # 0.1 10^3/uL (0.0-0.8); Eosinophils % 0.7 %; Hematocrit 35.3 % (37-53); Lymphocytes # 0.4 10^3/uL (0.8-4.8); Mean Corpuscular HGB Conc 27.5 g/dL (30-55); Mean Corpuscular Hemoglobin 23.1 pg (27-33); Mean Platelet Volume 9.7 fL (7.4-10.4); Monocytes # 0.6 10^3/uL (0.2-0.9); Monocytes % 7.5 %; Neutrophils # 6.54 10^3/uL (1.8-7.7); Neutrophils % 86.1 %; Nucleated Red Blood Cells # 0.1 /100WBC; Nucleated Red Blood Cells % 0.8 %; Platelet Count 219 10^3/cmm (157-399); Red Cell Distribution Width 20.6 % (12.1-15.1); White Blood Count 7.59 10^3/uL (3.29-11.43)
--- NOTE | 2024-07-19 11:36 | PC.PHAR ---
[facility] at [phone]
[2024-07-19 11:45] LABS: Troponin(5th) Baseline 52 ng/L (0-15)
[2024-07-19 11:55] LABS: Alanine Aminotransferase 12 U/L (0-41); Albumin Level 3.2 g/dL (3.5-5.2); Alkaline Phosphatase 206 U/L (40-130); Aspartate Amino Transferase 25 U/L (0-40); Blood Urea Nitrogen 66 mg/dL (8-23); Calcium 8.3 mg/dL (8.5-10.5); Carbon Dioxide 17 mmol/L (22-29); Chloride 97 mmol/L (98-107); Globulin 3.6 g/dL (1.3-4.6); Glucose 209 mg/dL (65-115); Osmolality Calculated 297 mOsm/kg (285-295); Sodium 131 mmol/L (136-145); Total Bilirubin 0.7 mg/dL (0.15-1.2); Total Protein 6.8 g/dL (6.6-8.7)
[2024-07-19 11:57] LABS: Anion Gap 22.6 (5-19); Creatinine Clr Calc Pharmacy 36.2196; Potassium 5.6 mmol/L (3.5-5.1)
[2024-07-19 12:03] LABS: Bilirubin Urine Negative (Negative); Blood Urine 1+ (Negative); Glucose Urine UA 2+ (Normal); Ketones Urine Negative (Negative); Leukocyte Esterase Urine 1+ (Negative); Nitrate Urine Negative (Negative); Protein Urine Trace (Negative); Specific Gravity, Urine 1.016 (1.005-1.030); Urine Appearance Clear (CLEAR); Urine Color Yellow (Yellow); Urobilinogen Urine 0.2 mg/dL (Negative); pH Urine 5.5 (5-7)
[2024-07-19 12:06] LABS: Add Urine Microscopic? YES; Bacteria Urine None Seen /hpf; Hyaline Casts Urine 31.43 /lpf; Squamous Epithelial Cell Urine 0-5 /hpf (0-5); WBC Urine 0-5 /hpf (0-5)
[2024-07-19 12:16] LABS: NT Pro B Type Natriuretic Pept 55649 pg/mL (0-125)
[2024-07-19 12:35] LABS: Add Urine Culture? No
--- NOTE | 2024-07-19 13:15 | ECG_ITS ---
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 Measurements Intervals [place] Rate: 90 P: -69 MD: 166 QRS: 270 QRSD: 130 T: 0 QT: 396 QTc: 486 Interpretive Statements SINUS RHYTHM RIGHT AXIS DEVIATION [QRS AXIS > 100] RIGHT BUNDLE BRANCH BLOCK [120+ ms QRS DURATION, UPRIGHT V1, 40+ ms S IN I/aVL/V4/V5/V6] POSSIBLE ANTERIOR MYOCARDIAL INFARCTION , OF INDETERMINATE AGE [30 ms Q WAVE IN V3/V4, OR R < 0.2 mV IN V4] ST DEPRESSION, CONSIDER SUBENDOCARDIAL INJURY [0.1+ mV ST DEPRESSION] Compared to ECG 07/19/2024 11:21:16 Right-axis deviation now present Left-axis deviation no longer present Myocardial infarct finding still present ST (T wave) deviation still present Electronically Signed On 07-23-2024 00:59:10 CDT by Cholo Kelsey M.D. [email or web address]
[2024-07-19 13:26] LABS: Glucose Point of Care 213 mg/dL (70-110)
[2024-07-19 13:40] LABS: Troponin 5 2HR 52.46 ng/L (0-15); Troponin 5 2HR Delta 0.46 ABS# (0-10)
[2024-07-19 13:41] LABS: Lactic Sepsis W/Reflex 2.2 mmol/L (0.5-2.2)
[2024-07-19 15:04] LABS: Reflex Lactate Order REFLEX LACTIC ORDERD
--- NOTE | 2024-07-19 15:27 | P.HP_ITS ---
Providers/Chief Complaint 2 Admitting Physician: Wilfrid Laurent Primary Care Provider: ABDULLAHI Matta Chief Complaint: retaining fluid,fluid coming out of pores History of Present Illness Pleasant 74-year-old gentleman with history of cardiomyopathy, EF 25%, CAD with scarring, minimal ischemia, no active ischemia on stress test of May, EF on nuclear scan at that time noted 16%, with LifeVest, chronic systolic and diastolic CHF, on nasal cannula oxygen 2 L normally at home, recently assessed in ER due to urinary retention and has a Blair catheter since 07/12, ischemic cardiomyopathy, CKD, restrictive lung disease, DM 2, HTN, HLD, pancreatitis, COPD, other medical problems, presented to ER with progressive edema, abdominal discomfort, weeping. He had been increasing diuretic dose at home from 1-2 then 4 tablets, but still without any noticeable improvement on the second day. He has been instructed to maintain 1 L fluid restriction but has been having trouble keeping with a due to his mouth getting dry while wearing oxygen. 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 He normally is on 2 L of oxygen at home. He has difficult time sleeping at night, often wakes up and has to sit up, feeling like he is lacking air. Although when he measures his saturation it is usually normal at that time. He has a history of sleep apnea but has not been able to tolerate his CPAP. Review of Systems 2 Const: Denies: fever(s), body aches or malaise Card: Reports: edema, swelling of feet/ankles and orthopnea; Denies: chest pain, irregular heart rhythm or pre-syncope Resp: Reports: productive cough; Denies: dyspnea, change in phlegm color or hemoptysis GI: Reports: nausea and other; Denies: abdominal pain, vomiting, diarrhea, constipation, hematochezia or melena : Denies: flank pain, difficulty urinating, urinary frequency or hematuria Musc: Denies: back pain, joint swelling or joint redness Skin/Breast: Denies: rash Neuro: Denies: headache(s), dizziness or confusion Medications/Allergies Home Medications Medication Instructions Recorded Confirmed Last Taken Type aspirin 81 mg tablet,delayed 81 mg PO QAM 01/02/21 07/19/24 06/12/24 History release clopidogrel 75 mg tablet 75 mg PO BEDTIME 01/25/21 07/19/24 06/11/24 History fluticasone propionate 50 1 spray intranasal BID 04/20/21 07/19/24 06/11/24 History mcg/actuation nasal spray,suspension (Allergy Relief (fluticasone)) magnesium oxide 400 mg PO QAM 07/05/22 07/19/24 06/12/24 History diclofenac sodium 1 % topical gel 2 g topical QID PRN Pain 08/13/23 07/19/24 06/11/24 History fluticasone 250 mcg-salmeterol 50 1 inh inhalation BID 08/13/23 07/19/24 06/12/24 History mcg/dose blistr powdr for inhalation (Wixela Inhub) insulin aspart U-100 100 unit/mL See Rx Instructions .Route 12/08/23 07/19/24 Unknown History (3 mL) subcutaneous pen (Novolog .COMPLEX PRN blood sugar FlexPen U-100 Insulin aspart) nitroglycerin 0.4 mg sublingual 0.4 mg sublingual Q5M PRN Chest 01/22/24 07/19/24 Unknown Rx tablet (Nitrostat) Pain #30 tabs sulfasalazine 500 mg tablet 500 mg PO BID 06/12/24 07/19/24 Unknown History furosemide 40 mg tablet 40 mg PO DAILY Edema 30 days #30 06/20/24 07/19/24 06/12/24 Rx tabs metoprolol tartrate 25 mg tablet 12.5 mg (1/2 x 25 mg) PO 06/20/24 07/19/24 Unknown Rx BID@0900,2100 30 days #30 tabs pantoprazole 40 mg tablet,delayed 40 mg PO BID 30 days #60 tabs 06/20/24 07/19/24 Unknown Rx release (Protonix) potassium chloride 10 mEq 10 meq PO DAILY Edema 30 days #30 06/20/24 07/19/24 06/12/24 Rx tablet,extended release tabs empagliflozin 10 mg tablet 10 mg PO DAILY 30 days #30 tabs 07/04/24 07/19/24 Unknown Rx (Jardiance) Diabetic Shoes With Custom Molded #1 ea 07/10/24 07/19/24 Unknown Rx Inserts carvedilol 25 mg tablet 25 mg PO BID 07/19/24 07/19/24 Unknown History insulin glargine 100 unit/mL 38 unit SUBCUT BID 07/19/24 07/19/24 Unknown History subcutaneous solution (Lantus U-100 Insulin) lovastatin 20 mg tablet 20 mg PO DAILY 07/19/24 07/19/24 Unknown History sucralfate 1 gram tablet 1 g PO BID 07/19/24 07/19/24 Unknown History Allergies Allergy/AdvReac Type Severity Reaction Status Date / Time clindamycin Allergy Severe ADR/ALGY-Pa Verified 07/12/24 16:03 lpitations lactose Allergy Mild ADR-Abdominal Verified 07/12/24 16:03 Pain montelukast Allergy Mild dyspnea Verified 07/12/24 16:03 apricot Allergy Unknown Verified 07/12/24 16:03 Penicillins Allergy Unknown Verified 07/12/24 16:03 PFSH Acute 2 PFSH: Medical History Ischemic heart disease due to coronary artery obstruction Chronic systolic (congestive) heart failure Ischemic cardiomyopathy Sacroiliac dysfunction CKD (chronic kidney disease) Arthralgia Anemia Umbilical hernia, incarcerated Acute kidney injury Normochromic normocytic anemia Atherosclerosis of coronary artery of [place] heart without angina pectoris Sepsis Pleural effusion Community acquired pneumonia NSTEMI (non-ST elevated myocardial infarction) CHF exacerbation Restrictive lung disease Pneumonia Pancreatic cyst Pancreatitis Diabetes Hyperlipidemia Hypertension COPD (chronic obstructive pulmonary disease) Surgical History H/O esophagogastroduodenoscopy Hx of CABG History of coronary angioplasty with insertion of stent History of colonoscopy with polypectomy Family History Brother CAD (coronary artery disease) Diabetes Lung disease Sister CAD (coronary artery disease) Diabetes Cancer Lung disease Father CAD (coronary artery disease) Diabetes Lung disease Mother CAD (coronary artery disease) Diabetes Stroke Brother CAD (coronary artery disease) Diabetes Lung disease Brother CAD (coronary artery disease) Diabetes Sister CAD (coronary artery disease) Diabetes Lung disease Sister CAD (coronary artery disease) Diabetes Sister CAD (coronary artery disease) Diabetes Daughter Chronic kidney disease (CKD) Diabetes Denies family history of Clotting disorder Dementia Suicide Anesthesia complication Bleeding disorder Social History Smoking and tobacco/nicotine status: former use of tobacco/nicotine Quit status (tobacco/nicotine): has quit using Year quit tobacco: 1983 [id number] Second hand smoke exposure: No Alcohol intake: former Substance/Drug Use: never Adopted: No Caregiver/support person: Yes Lives independently: Yes Household members: spouse Housing: House Marital status: service: Yes Current occupational status: retired Pets and animals: No Leisure activites: exercise Sexually active: No Do you think of yourself as: Straight/Heterosexual Current gender identity: Male Mayra/Gnosticism: Sabianism Special mayra needs: No Agree to transfusion: No Vitals/I&O/Wt Last Vital Signs Temp 98.1 F 07/19/24 11:10 Pulse 88 07/19/24 14:28 Resp 16 07/19/24 14:28 BP 115/71 07/19/24 14:28 Pulse Ox 96 07/19/24 14:28 O2 Del Method Nasal Cannula 07/19/24 13:43 O2 Flow Rate 2 07/19/24 11:10 Weight last 48 hrs Weight 97.976 kg Physical Exam 2 Narrative: Accompanied by his Const: COMMON NORMALS: patient oriented x3 and alert GENERAL APPEARANCE: c ooperative ORIENTATION/CONSCIOUSNESS: Yes awake HENMT: COMMON NORMALS: oropharynx normal Neck/C-Spine: COMMON NORMALS: no JVD Resp: COMMON NORMALS: normal respiratory effort and clear to auscultation bilaterally AUSCULTATION: clear to auscultation bilaterally Cardio: COMMON NORMALS: no JVD, regular rhythm, S1 normal heart sound present, S2 normal heart sound present and No murmurs present (Cardio) RHYTHM: regular rhythm HEART SOUNDS: S1 normal heart sound present and S2 normal heart sound present GI: INSPECTION: Yes abdominal distension AUSCULTATION: Yes normoactive bowel sounds PALPATION: Yes Soft to palpation Extremity: OTHER: Anasarca with 2+ edema going all the way from the lower extremities up through thighs to lower abdomen Neuro: COMMON NORMALS: patient oriented x3 and moves all extremities S ENSORIUM/ORIENTATION: Yes alert Data 07/19/24 11:01 07/19/24 11:01 A&P Assessment and plan (1) Acute exacerbation of CHF (congestive heart failure): Acute decompensation of chronic systolic and diastolic congestive heart failure, ejection fraction 25% on recent TTE, as low as 60% on nuclear scan and stress test in May. Scarring with minimal ischemia, without significant ischemia. Without chest pain or pressure. He does have difficulty maintaining his fluid restriction of 1 L at home due to his mouth getting dry with oxygen. Diffusely overloaded with fluid with anasarca edema up to lower abdomen of both thighs and lower legs. NT-proBNP elevated on review at 55,649. Reviewed vitals, CBC, CMP, lactic acid, magnesium is requested, UA, reviewed chest x-ray, reviewed EKG. On my interpretation right bundle duarte block, mild ST depression in V4, V5, T wave inversions. Pending official read. Reviewed ER note, discussed with ER provider. Complete troponin EKG trend to assess for ischemia. Treat CHF exacerbation with IV diuretics, 60 mg IV Lasix twice daily. Monitor for risk of electrolyte deficiency, acute kidney injury in the setting of CKD. Noted hyperkalemia. Reassess electrolytes. Hold potassium supplementation. Monitor on telemetry with risk of life-threatening arrhythmia. He has been intolerant of LifeVest and it has been discontinued. Qualifiers: Heart failure type: combined systolic and diastolic Qualified Code(s): I50.43 - Acute on chronic combined systolic (congestive) and diastolic (congestive) heart failure (2) Hyperkalemia: At risk of life-threatening arrhythmia, has been intolerant of LifeVest and it has been discontinued. Monitor on telemetry. Hold potassium supplements. Give IV Lasix/treat CHF exacerbation as above. (3) Air hunger: Discussed with him may trial low-dose morphine only when alert in case of air hunger symptoms which he states cycle with shortness of breath and anxiety despite normal oxygen saturation. Discussed risks with morphine including mental status suppression, respiratory depression as per discussion risk of tolerance. In his case he would be used as palliative nature given advanced heart disease accompanied by systemic symptoms with air hunger at rest. As per discussion not to be used as a sleep aid. Plan MARIELENA: Has been intolerant of CPAP. Discussed with him risks of complications with untreated sleep apnea. She will attempt to wear CPAP. Insomnia: Trazodone as needed nightly CKD: At risk of WHIT on CKD with IV diuretic. Monitor renal function. Ischemic cardiomyopathy: Has not been tolerant of LifeVest. DM2: Continue insulin, insulin/scale. Monitor blood glucose. Consult carbohydrate diet. CAD with scarring, minimal ischemia, no active ischemia on stress test of May, EF on nuclear scan at that time noted 16%, with LifeVest. Continue aspirin, Plavix, beta-radha once medications confirmed, statin. Recently assessed in ER due to urinary retention and has a Blair catheter since 07/12, Restrictive lung disease, HTN, monitor blood pressures. continue metoprolol. HLD, continue statin pancreatitis, COPD, mild exacerbation with some cough productive of phlegm. Inhaled budesonide. Breathing treatments scheduled and as needed. Flutter valve. Other medical problems Attestations 2 Medical Necessity Statement*: Admission of over 2 midnights anticipated for assessment and management of decompensated systolic and diastolic CHF with gentleman with ischemic cardiomyopathy, EF 25%, as low as 16%, grade 3 diastolic dysfunction, with anasarca, and gentleman with underlying CKD, hyperkalemia, intolerant of LifeVest, with underlying MARIELENA intolerant of CPAP, with additional comorbidities as above including metabolic syndrome. and High MDM includes amount and/or complexity of data reviewed/ordered [ previous or external records, resulted lab(s)/test(s), ordered lab(s)/test(s), independent test interpretation and other healthcare professional discussion] and described risk of complication, morbidity or mortality of management as documented Diagnoses Acute exacerbation of CHF (congestive heart failure) I50.43 Heart failure type: combined systolic and diastolic Hyperkalemia E87.5 Air hunger R09.89
[2024-07-19 15:47] LABS: Magnesium 2.4 mg/dL (1.7-2.3)
[2024-07-19] MEDS: enoxaparin 30 mg/0.3 mL Syringe SUBCUT (16:31)
[2024-07-19] MEDS: FUROsemide 10 mg/mL SDV 10mL 60 MG IVP (16:31)
[2024-07-19 17:09] LABS: Glucose Point of Care 240 mg/dL (70-110)
[2024-07-19] MEDS: pantoprazole DR 40 mg Tablet PO (18:08)
[2024-07-19] MEDS: insulin lispro 100 unit/1 mL SUBCUT ×2 (18:08→21:04)
[2024-07-19 18:54] LABS: Covid PCR NEGATIVE (Negative); Influenza A NEGATIVE (Negative); Influenza B NEGATIVE (Negative); Respiratory Syncytial Virus Ce NEGATIVE (Negative)
[2024-07-19] MEDS: trazodone 50 mg Tablet 25 MG PO (20:45)
[2024-07-19] MEDS: clopidogrel 75 mg Tablet PO (20:46)
[2024-07-19] MEDS: metoprolol tartrate 25 mg Tablet 12.5 MG PO (20:46)
[2024-07-19 20:58] LABS: Glucose Point of Care 164 mg/dL (70-110)
[2024-07-19] MEDS: insulin glargine 100 units/1 mL 5 UNIT SUBCUT (21:04)
[2024-07-19] MEDS: ipratropium-albuterol 3 mL Neb INHALATION (21:27)
[2024-07-19] MEDS: budesonide 0.5 mg/2 mL Neb 0.25 MG INHALATION (21:27)
[2024-07-19] MEDS: guaiFENesin 600 mg Tablet PO (21:45)
[2024-07-20] VITALS (12 sets, daily range): BP systolic 110–127; BP diastolic 64–74; PULSE 85–112; RESP 15–21; TEMP 36.4–36.9; O2SAT 93–100
[2024-07-20] MEDS: ipratropium-albuterol 3 mL Neb INHALATION ×4 (02:16→20:15)
[2024-07-20] MEDS: FUROsemide 10 mg/mL SDV 10mL 60 MG IVP ×2 (03:44→16:29)
[2024-07-20 03:54] LABS: Basophils % 0.4 %; Eosinophils # 0.1 10^3/uL (0.0-0.8); Eosinophils % 1.5 %; Hematocrit 32.4 % (37-53); Lymphocytes # 0.4 10^3/uL (0.8-4.8); Lymphocytes % 5.3 %; Mean Corpuscular HGB Conc 29.3 g/dL (30-55); Mean Corpuscular Volume 78.5 fl (82-101); Mean Platelet Volume 9.3 fL (7.4-10.4); Monocytes # 0.6 10^3/uL (0.2-0.9); Monocytes % 7.6 %; Neutrophils % 84.8 %; Nucleated Red Blood Cells # 0.1 /100WBC; Nucleated Red Blood Cells % 0.7 %; Platelet Count 206 10^3/cmm (157-399); Red Blood Count 4.13 10^6/uL (3.85-5.65); Red Cell Distribution Width 20.2 % (12.1-15.1); White Blood Count 8.13 10^3/uL (3.29-11.43)
[2024-07-20 04:43] LABS: Alanine Aminotransferase 11 U/L (0-41); Albumin Level 3.3 g/dL (3.5-5.2); Alkaline Phosphatase 189 U/L (40-130); Anion Gap 15.6 (5-19); Aspartate Amino Transferase 22 U/L (0-40); Blood Urea Nitrogen 65 mg/dL (8-23); Calcium 8.5 mg/dL (8.5-10.5); Carbon Dioxide 24 mmol/L (22-29); Chloride 97 mmol/L (98-107); Creatinine Clr Calc Pharmacy 37.9444; Globulin 3.2 g/dL (1.3-4.6); Glucose 74 mg/dL (65-115); Osmolality Calculated 291 mOsm/kg (285-295); Potassium 4.6 mmol/L (3.5-5.1); Sodium 132 mmol/L (136-145); Total Bilirubin 0.6 mg/dL (0.15-1.2); Total Protein 6.5 g/dL (6.6-8.7)
[2024-07-20] MEDS: aspirin 81 mg EC Tablet PO (05:52)
[2024-07-20 06:55] LABS: Glucose Point of Care 87 mg/dL (70-110)
[2024-07-20] MEDS: insulin glargine 100 units/1 mL 5 UNIT SUBCUT (08:17)
[2024-07-20] MEDS: metoprolol tartrate 25 mg Tablet 12.5 MG PO ×2 (08:17→20:51)
[2024-07-20] MEDS: guaiFENesin 600 mg Tablet PO (08:17)
[2024-07-20] MEDS: pantoprazole DR 40 mg Tablet PO ×2 (08:17→17:42)
[2024-07-20] MEDS: atorvastatin 40 mg Tablet 20 MG PO (08:17)
[2024-07-20] MEDS: budesonide 0.5 mg/2 mL Neb 0.25 MG INHALATION ×2 (09:28→20:15)
--- NOTE | 2024-07-20 12:11 | P.PN_ITS ---
Subjective 2 Subjective: He is doing slightly better, but still having quite a bit of edema including on the lower abdomen. He is having a difficult time sticking to 32 ounces in a day. He has been tracking how much she drinks and was at 48 ounces yesterday. Vitals/I&O/Wt Last Vital Signs Temp 98.0 F 07/20/24 07:42 Pulse 112 H 07/20/24 08:00 Resp 18 07/20/24 08:00 BP 127/64 07/20/24 07:42 Pulse Ox 93 07/20/24 08:00 O2 Del Method Nasal Cannula 07/20/24 08:00 O2 Flow Rate 3 07/20/24 08:00 07/19/24 07/20/24 07/20/24 22:59 06:59 14:59 Intake Total 600 / 600 240 / 240 Output Total 1650 / 1650 650 / 2300 Balance -1050 / -1050 -650 / -1700 240 / 240 Weight last 48 hrs Weight 99.473 kg Weight 97.976 kg Weight 97.976 kg Physical Exam 2 Const: COMMON NORMALS: patient oriented x3 and alert GENERAL APPEARANCE: c ooperative ORIENTATION/CONSCIOUSNESS: Yes awake HENMT: COMMON NORMALS: oropharynx normal Neck/C-Spine: COMMON NORMALS: no JVD Resp: COMMON NORMALS: normal respiratory effort and clear to auscultation bilaterally AUSCULTATION: clear to auscultation bilaterally Cardio: COMMON NORMALS: no JVD, regular rhythm, S1 normal heart sound present, S2 normal heart sound present and No murmurs present (Cardio) RHYTHM: regular rhythm HEART SOUNDS: S1 normal heart sound present and S2 normal heart sound present GI: COMMON NORMALS: Soft to palpation INSPECTION: Yes abdominal distension AUSCULTATION: Yes normoactive bowel sounds PALPATION: Yes Soft to palpation Extremity: OTHER: Anasarca with 2+ edema going all the way from the lower extremities up through thighs to abdomen Neuro: COMMON NORMALS: patient oriented x3 and moves all extremities S ENSORIUM/ORIENTATION: Yes alert Data 07/20/24 03:17 07/20/24 03:17 A&P Assessment and plan (1) Acute exacerbation of CHF (congestive heart failure): Very bad anasarca, persistent including to his abdomen with abdominal wall edema of at least 2+. He is having hard time sticking to fluid restriction, he tracks, she drinks and had 48 ounces yesterday. He feels that he over drank yesterday and had an episode of emesis and regurgitated some of it back. Requesting fluid restriction of 1000 mL. Reviewed vitals, intake and output, CBC, CMP. Reviewed troponin series. He is -1400 mL. So far maintaining kidney function, BUN 65, creatinine 2.1, potassium 4.6, bicarb 24. Sodium 132. Continue IV Lasix 60 mg twice daily. Monitor for risk of electrolyte deficiency, kidney injury. Monitor for risk of arrhythmia, continue telemetry. Hyperkalemia on review has resolved. Monitor on telemetry with risk of life-threatening arrhythmia. He has been intolerant of LifeVest and it has been discontinued. Qualifiers: Heart failure type: combined systolic and diastolic Qualified Code(s): I50.43 - Acute on chronic combined systolic (congestive) and diastolic (congestive) heart failure (2) Hyperkalemia: Reviewed potassium, resolved. Recheck chemistry. At risk of life-threatening arrhythmia, has been intolerant of LifeVest and it has been discontinued. Monitor on telemetry. Hold potassium supplements. Give IV Lasix/treat CHF exacerbation as above. (3) Air hunger: Discussed with him may trial low-dose morphine only when alert in case of air hunger symptoms which he states cycle with shortness of breath and anxiety despite normal oxygen saturation. Discussed risks with morphine including mental status suppression, respiratory depression as per discussion risk of tolerance. In his case he would be used as palliative nature given advanced heart disease accompanied by systemic symptoms with air hunger at rest. As per discussion not to be used as a sleep aid. Plan MARIELENA: Has been intolerant of CPAP. Discussed with him risks of complications with untreated sleep apnea. She will attempt to wear CPAP. Insomnia: Trazodone as needed nightly CKD: At risk of WHIT on CKD with IV diuretic. Monitor renal function. Ischemic cardiomyopathy: Has not been tolerant of LifeVest. DM2: Reviewed POC glucose. Down as low as 74. Will decrease Lantus to 5 units daily. Continue insulin/scale. Monitor blood glucose. Cont carbohydrate diet. CAD with scarring, minimal ischemia, no active ischemia on stress test of May, EF on nuclear scan at that time noted 16%, with LifeVest. Continue aspirin, Plavix, beta-radha once medications confirmed, statin. Recently assessed in ER due to urinary retention and has a Blair catheter since 07/12, Restrictive lung disease, HTN, monitor blood pressures. continue metoprolol. HLD, continue statin pancreatitis, COPD, mild exacerbation with some cough productive of phlegm. Inhaled budesonide. Breathing treatments scheduled and as needed. Flutter valve. Other medical problems Attestations 2 Medical Necessity Statement*: Continue admission for assessment management of severely decompensated CHF with anasarca and a gentleman with underlying CKD. Additional comorbidities. and High MDM includes described risk of complication, morbidity or mortality of management as documented Diagnoses Acute exacerbation of CHF (congestive heart failure) I50.43 Heart failure type: combined systolic and diastolic Hyperkalemia E87.5 Air hunger R09.89
[2024-07-20 12:15] LABS: Glucose Point of Care 271 mg/dL (70-110)
[2024-07-20] MEDS: insulin lispro 100 unit/1 mL SUBCUT ×3 (12:18→21:10)
[2024-07-20] MEDS: enoxaparin 30 mg/0.3 mL Syringe SUBCUT (16:29)
[2024-07-20 17:28] LABS: Glucose Point of Care 280 mg/dL (70-110)
[2024-07-20] MEDS: guaiFENesin-dextromethorphan UDC 10 mL 5 ML PO (17:41)
[2024-07-20 20:43] LABS: Glucose Point of Care 151 mg/dL (70-110)
[2024-07-20] MEDS: clopidogrel 75 mg Tablet PO (20:50)
[2024-07-20] MEDS: trazodone 50 mg Tablet 25 MG PO (20:51)
[2024-07-21] VITALS (15 sets, daily range): BP systolic 101–125; BP diastolic 61–69; PULSE 87–109; RESP 10–26; TEMP 36.6–36.8; O2SAT 91–97
[2024-07-21] MEDS: ipratropium-albuterol 3 mL Neb INHALATION ×4 (02:13→20:40)
[2024-07-21] MEDS: FUROsemide 10 mg/mL SDV 10mL 60 MG IVP ×2 (04:07→17:40)
[2024-07-21 04:14] LABS: Basophils % 0.4 %; Eosinophils # 0.1 10^3/uL (0.0-0.8); Eosinophils % 1.7 %; Hematocrit 30.3 % (37-53); Lymphocytes # 0.4 10^3/uL (0.8-4.8); Lymphocytes % 4.8 %; Mean Corpuscular HGB Conc 29.7 g/dL (30-55); Mean Corpuscular Hemoglobin 23.2 pg (27-33); Mean Corpuscular Volume 78.1 fl (82-101); Mean Platelet Volume 9.5 fL (7.4-10.4); Monocytes # 0.6 10^3/uL (0.2-0.9); Monocytes % 7.4 %; Neutrophils # 6.91 10^3/uL (1.8-7.7); Neutrophils % 85.5 %; Nucleated Red Blood Cells % 0.5 %; Platelet Count 203 10^3/cmm (157-399); Red Blood Count 3.88 10^6/uL (3.85-5.65); Red Cell Distribution Width 19.9 % (12.1-15.1); White Blood Count 8.09 10^3/uL (3.29-11.43)
[2024-07-21 04:36] LABS: Alanine Aminotransferase 9 U/L (0-41); Albumin Level 3.1 g/dL (3.5-5.2); Alkaline Phosphatase 172 U/L (40-130); Anion Gap 14.1 (5-19); Aspartate Amino Transferase 19 U/L (0-40); Blood Urea Nitrogen 55 mg/dL (8-23); Carbon Dioxide 24 mmol/L (22-29); Chloride 97 mmol/L (98-107); Creatinine Clr Calc Pharmacy 44.5826; Glucose 63 mg/dL (65-115); Osmolality Calculated 285 mOsm/kg (285-295); Potassium 4.1 mmol/L (3.5-5.1); Sodium 131 mmol/L (136-145); Total Bilirubin 0.6 mg/dL (0.15-1.2); Total Protein 6.1 g/dL (6.6-8.7)
[2024-07-21 04:37] LABS: Magnesium 2.2 mg/dL (1.7-2.3)
[2024-07-21] MEDS: aspirin 81 mg EC Tablet PO (06:09)
[2024-07-21 06:39] LABS: Glucose Point of Care 72 mg/dL (70-110)
[2024-07-21] MEDS: guaiFENesin 600 mg Tablet PO ×2 (08:17→17:41)
[2024-07-21] MEDS: metoprolol tartrate 25 mg Tablet 12.5 MG PO ×2 (08:17→21:06)
[2024-07-21] MEDS: pantoprazole DR 40 mg Tablet PO ×2 (08:17→17:41)
[2024-07-21] MEDS: atorvastatin 40 mg Tablet 20 MG PO (08:17)
[2024-07-21] MEDS: budesonide 0.5 mg/2 mL Neb 0.25 MG INHALATION ×2 (09:11→20:40)
[2024-07-21 12:10] LABS: Glucose Point of Care 178 mg/dL (70-110)
[2024-07-21] MEDS: insulin lispro 100 unit/1 mL SUBCUT ×3 (12:26→21:08)
--- NOTE | 2024-07-21 12:37 | P.PN_ITS ---
Subjective 2 Subjective: He denies any changes today. He is trying harder to keep with fluid restriction. Vitals/I&O/Wt Last Vital Signs Temp 97.8 F 07/21/24 11:18 Pulse 93 07/21/24 11:18 Resp 16 07/21/24 11:18 BP 101/65 07/21/24 11:18 Pulse Ox 91 07/21/24 11:18 O2 Del Method Nasal Cannula 07/21/24 11:18 O2 Flow Rate 3 07/21/24 08:00 07/20/24 07/21/24 07/21/24 22:59 06:59 14:59 Intake Total 480 / 840 240 / 240 Output Total 1550 / 1550 400 / 1950 750 / 750 Balance -1070 / -710 -400 / -1110 -510 / -510 Weight last 48 hrs Weight 101.605 kg Weight 99.473 kg Weight 97.976 kg Physical Exam 2 Narrative: Accompanied by his Const: COMMON NORMALS: patient oriented x3 and alert GENERAL APPEARANCE: c ooperative ORIENTATION/CONSCIOUSNESS: Yes awake HENMT: COMMON NORMALS: oropharynx normal Neck/C-Spine: COMMON NORMALS: no JVD Resp: COMMON NORMALS: normal respiratory effort and clear to auscultation bilaterally AUSCULTATION: clear to auscultation bilaterally Cardio: COMMON NORMALS: no JVD, regular rhythm, S1 normal heart sound present, S2 normal heart sound present and No murmurs present (Cardio) RHYTHM: regular rhythm HEART SOUNDS: S1 normal heart sound present and S2 normal heart sound present GI: COMMON NORMALS: Soft to palpation INSPECTION: Yes abdominal distension AUSCULTATION: Yes normoactive bowel sounds PALPATION: Yes Soft to palpation Extremity: OTHER: Anasarca with 2+ edema going all the way from the lower extremities up through thighs to abdomen Neuro: COMMON NORMALS: patient oriented x3 and moves all extremities S ENSORIUM/ORIENTATION: Yes alert Data 07/21/24 03:40 07/21/24 03:40 A&P Assessment and plan (1) Acute exacerbation of CHF (congestive heart failure): Very bad anasarca, persistent including to his abdomen with abdominal wall edema of at least 2+. Severe exacerbation of systolic and diastolic CHF. Continue fluid restriction of 1000 mL. Continue IV Lasix 60 mg every 12 hours. Monitor intake and output. Reassess electrolytes with risk of deficiency with IV diuretics, reassess kidney function with risk of kidney injury. Reviewed vitals, CBC, CMP, magnesium. Recheck. Monitor on telemetry with risk of life-threatening arrhythmia. He has been intolerant of LifeVest and it has been discontinued. Qualifiers: Heart failure type: combined systolic and diastolic Qualified Code(s): I50.43 - Acute on chronic combined systolic (congestive) and diastolic (congestive) heart failure (2) Hyperkalemia: Reviewed potassium, resolved. Recheck chemistry. At risk of life-threatening arrhythmia, has been intolerant of LifeVest and it has been discontinued. Monitor on telemetry. Hold potassium supplements. Give IV Lasix/treat CHF exacerbation as above. (3) Air hunger: Discussed with him may trial low-dose morphine only when alert in case of air hunger symptoms which he states cycle with shortness of breath and anxiety despite normal oxygen saturation. Discussed risks with morphine including mental status suppression, respiratory depression as per discussion risk of tolerance. In his case he would be used as palliative nature given advanced heart disease accompanied by systemic symptoms with air hunger at rest. As per discussion not to be used as a sleep aid. Plan MARIELENA: Has been intolerant of CPAP. Discussed with him risks of complications with untreated sleep apnea. She will attempt to wear CPAP. Insomnia: Trazodone as needed nightly CKD: At risk of WHIT on CKD with IV diuretic. Monitor renal function. Ischemic cardiomyopathy: Has not been tolerant of LifeVest. DM2: Reviewed POC glucose. Down as low as 74. Will decrease Lantus to 5 units daily. Continue insulin/scale. Monitor blood glucose. Cont carbohydrate diet. CAD with scarring, minimal ischemia, no active ischemia on stress test of May, EF on nuclear scan at that time noted 16%, with LifeVest. Continue aspirin, Plavix, beta-radha once medications confirmed, statin. Recently assessed in ER due to urinary retention and has a Blair catheter since 07/12, Restrictive lung disease, HTN, monitor blood pressures. continue metoprolol. HLD, continue statin pancreatitis, COPD, mild exacerbation with some cough productive of phlegm. Inhaled budesonide. Breathing treatments scheduled and as needed. Flutter valve. Other medical problems Attestations 2 Medical Necessity Statement*: Continue admission for assessment management of severely decompensated CHF with anasarca and a gentleman with underlying CKD. Additional comorbidities. and High MDM includes described risk of complication, morbidity or mortality of management as documented Diagnoses Acute exacerbation of CHF (congestive heart failure) I50.43 Heart failure type: combined systolic and diastolic Hyperkalemia E87.5 Air hunger R09.89
[2024-07-21 17:34] LABS: Glucose Point of Care 183 mg/dL (70-110)
[2024-07-21] MEDS: enoxaparin 30 mg/0.3 mL Syringe SUBCUT (17:40)
[2024-07-21] MEDS: morphine 10 mg/0.5 mL oral liq UD 5 MG PO ×2 (17:54→23:01)
[2024-07-21 20:28] LABS: Glucose Point of Care 214 mg/dL (70-110)
[2024-07-21] MEDS: trazodone 50 mg Tablet 25 MG PO (21:06)
[2024-07-21] MEDS: clopidogrel 75 mg Tablet PO (21:07)
[2024-07-21] MEDS: guaiFENesin-dextromethorphan UDC 10 mL 5 ML PO (23:01)
[2024-07-22] VITALS (14 sets, daily range): BP systolic 96–112; BP diastolic 60–71; PULSE 86–110; RESP 16–24; TEMP 36.3–37; O2SAT 90–96
[2024-07-22 03:16] LABS: Basophils % 0.2 %; Eosinophils % 0.3 %; Hematocrit 31.5 % (37-53); Lymphocytes # 0.2 10^3/uL (0.8-4.8); Lymphocytes % 1.7 %; Mean Corpuscular HGB Conc 29.5 g/dL (30-55); Mean Corpuscular Hemoglobin 23.2 pg (27-33); Mean Corpuscular Volume 78.6 fl (82-101); Mean Platelet Volume 8.7 fL (7.4-10.4); Monocytes # 0.8 10^3/uL (0.2-0.9); Monocytes % 7.7 %; Neutrophils % 89.6 %; Nucleated Red Blood Cells # 0.1 /100WBC; Nucleated Red Blood Cells % 0.8 %; Platelet Count 226 10^3/cmm (157-399); Red Blood Count 4.01 10^6/uL (3.85-5.65); Red Cell Distribution Width 19.9 % (12.1-15.1); White Blood Count 10.94 10^3/uL (3.29-11.43)
[2024-07-22 03:35] LABS: Alanine Aminotransferase 9 U/L (0-41); Albumin Level 3.3 g/dL (3.5-5.2); Alkaline Phosphatase 173 U/L (40-130); Anion Gap 15.3 (5-19); Aspartate Amino Transferase 19 U/L (0-40); Blood Urea Nitrogen 57 mg/dL (8-23); Calcium 7.9 mg/dL (8.5-10.5); Carbon Dioxide 24 mmol/L (22-29); Chloride 95 mmol/L (98-107); Creatinine Clr Calc Pharmacy 45.0301; Glucose 115 mg/dL (65-115); Osmolality Calculated 287 mOsm/kg (285-295); Potassium 4.3 mmol/L (3.5-5.1); Sodium 130 mmol/L (136-145); Total Bilirubin 0.8 mg/dL (0.15-1.2); Total Protein 6.3 g/dL (6.6-8.7)
[2024-07-22 03:44] LABS: Magnesium 2.2 mg/dL (1.7-2.3)
[2024-07-22] MEDS: aspirin 81 mg EC Tablet PO (05:10)
[2024-07-22] MEDS: FUROsemide 10 mg/mL SDV 10mL 60 MG IVP (05:10)
[2024-07-22 06:46] LABS: Glucose Point of Care 127 mg/dL (70-110)
--- NOTE | 2024-07-22 07:35 | ECG_ITS ---
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 Measurements Intervals [place] Rate: 106 P: -83 UT: 158 QRS: 267 QRSD: 128 T: 35 QT: 361 QTc: 480 Interpretive Statements Atrial fibrillation with rapid ventricular rate [QRS AXIS > 100] RIGHT BUNDLE BRANCH BLOCK [120+ ms QRS DURATION, UPRIGHT V1, 40+ ms S IN I/aVL/V4/V5/V6] POSSIBLE ANTERIOR MYOCARDIAL INFARCTION , OF INDETERMINATE AGE [30 ms Q WAVE IN V3/V4, OR R < 0.2 mV IN V4] INFERIOR MYOCARDIAL INFARCTION , PROBABLY OLD [40+ ms Q WAVE AND/OR ST/T ABNORMALITY IN II/aVF] ST DEPRESSION, CONSIDER SUBENDOCARDIAL INJURY [0.1+ mV ST DEPRESSION] Compared to ECG 07/19/2024 13:20:07 Sinus rhythm no longer present Myocardial infarct finding still present ST (T wave) deviation still present Electronically Signed On 07-23-2024 01:00:21 CDT by Cholo Kelsey M.D. [email or web address]
[2024-07-22] MEDS: pantoprazole DR 40 mg Tablet PO ×2 (08:10→17:41)
[2024-07-22] MEDS: insulin glargine 100 units/1 mL 5 UNIT SUBCUT (08:10)
[2024-07-22] MEDS: guaiFENesin-dextromethorphan UDC 10 mL 5 ML PO ×2 (08:10→17:40)
[2024-07-22] MEDS: metoprolol tartrate 25 mg Tablet 12.5 MG PO ×2 (08:10→21:03)
[2024-07-22] MEDS: atorvastatin 40 mg Tablet 20 MG PO (08:10)
[2024-07-22] MEDS: ipratropium-albuterol 3 mL Neb INHALATION ×3 (09:37→21:06)
[2024-07-22] MEDS: budesonide 0.5 mg/2 mL Neb 0.25 MG INHALATION ×2 (09:38→21:05)
--- NOTE | 2024-07-22 09:55 | XRR_ITS ---
PROCEDURE INFORMATION: Exam: XR Chest Exam date and time: 07/22/2024 10:34 AM Age: 74 years old Clinical indication: Condition or disease; Lung condition and disease; Pneumonia; Prior surgery; Surgery date: 6+ months; Surgery type: Cabg coronary stents; Patient HX: HX of liver cancer; Additional info: Assess for pneumonia TECHNIQUE: Imaging protocol: Radiologic exam of the chest. Views: 1 view. Total images: 1 COMPARISON: CR XR chest 1V portable [id number] 07/19/2024 11:13 AM FINDINGS: Lungs: Increased opacity in the lungs bilaterally, particularly towards the lung bases. Pleural spaces: Bilateral pleural effusions are present larger on the right. Heart/Mediastinum: Stable enlargement of the cardiac silhouette. Cardiomediastinal silhouette is stable. Bones/joints: Findings of prior median sternotomy. XR/XR chest 1V portable [id number] IMPRESSION: New bilateral pulmonary opacities predominating in the mid and lower lung regions. Pattern is nonspecific, this could reflect congestive heart failure with pleural effusions. Pneumonia would also be a consideration. Follow-up films are recommended for further assessment
[2024-07-22 10:12] LABS: ABG PCO2 37.1 mmHg (35-45); ABG PH Result 7.37 (7.35-7.45); Alveolar-Arterial Oxygen Gradi 16.8 mmHg (5-10); Arterial Blood Gas Hematocrit 28.6 % (42-52); Base Excess ABG -3.2 mmol/L (-2.0-2.0); Blood Gas Allen Test Pos; Blood Gas Operator Identificat MONRO; Blood Gas Sample Site Brachial, left; Blood Gas Sample Type Arterial; Carboxyhemoglobin 2.1 %THgb (0.4-20.1); HCO3 ABG 21.6 mmol/L (22-26); HGB O2 Sat 84.2 % (95-100); Ionized Calcium Level - ABG 1.1 mmol/L (1.1-1.4); Oxygen Device NC; Oxygen Saturation ABG 86.9; PO2 ABG 53.5 mmHg (80.0-100.0); PO2 FiO2 Ratio Arterial Blood 167; Potassium Level - ABG 4.5 mmol/L (3.5-5.0); Total Hemoglobin 9.3 g/dL (14-18)
--- NOTE | 2024-07-22 10:54 | P.PN_ITS ---
Subjective 2 Subjective: Patient states feeling worse today. He has been coughing more for the past 2 days. States that the cough is new. Additionally his voice sounds a little hoarse. Oxygen requirement is still at 3 L/min. Medications: Reviewed: Yes Vitals/I&O/Wt Last Vital Signs Temp 98.3 F 07/22/24 07:31 Pulse 108 H 07/22/24 09:44 Resp 24 H 07/22/24 09:44 BP 112/71 07/22/24 07:31 Pulse Ox 94 07/22/24 09:44 O2 Del Method Nasal Cannula 07/22/24 09:44 O2 Flow Rate 3 07/22/24 09:44 07/21/24 07/22/24 07/22/24 22:59 06:59 14:59 Intake Total 540 / 1020 240 / 240 Output Total 925 / 1675 250 / 1925 Balance -385 / -655 -250 / -905 240 / 240 Weight last 48 hrs Weight 103.827 kg Weight 103.827 kg Weight 101.605 kg Physical Exam 2 Narrative: General: Tachypneic, AO x3 HEENT: PERRLA, pupils bilaterally equal and reactive, pallors not present Chest: Coarse breath sounds RUL with ronchi, left with scattered wheezing CVS: S1-S2 regular, no murmurs, no tachycardia, no gallops, no rubs Abdomen: Soft, nontender, no organomegaly, bowel sounds present Neuro: No focal deficits, no facial deformity, AO x3, power 5/5 in all limbs Extremities: pitting edema B/L LE more over thigh and scrotum, reports improvement over calves. Data 07/22/24 03:07 07/22/24 03:07 A&P Assessment and plan (1) Acute exacerbation of CHF (congestive heart failure): Very bad anasarca, persistent including to his abdomen with abdominal wall edema of at least 2+. Severe exacerbation of systolic and diastolic CHF. Continue fluid restriction of 1000 mL. Continue IV Lasix 60 mg every 12 hours. Monitor intake and output. Reassess electrolytes with risk of deficiency with IV diuretics, reassess kidney function with risk of kidney injury. Reviewed vitals, CBC, CMP, magnesium. Recheck. Monitor on telemetry with risk of life-threatening arrhythmia. He has been intolerant of LifeVest and it has been discontinued. Qualifiers: Heart failure type: combined systolic and diastolic Qualified Code(s): I50.43 - Acute on chronic combined systolic (congestive) and diastolic (congestive) heart failure (2) Hyperkalemia: Reviewed potassium, resolved. Recheck chemistry. At risk of life-threatening arrhythmia, has been intolerant of LifeVest and it has been discontinued. Monitor on telemetry. Hold potassium supplements. Give IV Lasix/treat CHF exacerbation as above. (3) Air hunger: Discussed with him may trial low-dose morphine only when alert in case of air hunger symptoms which he states cycle with shortness of breath and anxiety despite normal oxygen saturation. Discussed risks with morphine including mental status suppression, respiratory depression as per discussion risk of tolerance. In his case he would be used as palliative nature given advanced heart disease accompanied by systemic symptoms with air hunger at rest. As per discussion not to be used as a sleep aid. Plan MARIELENA: Has been intolerant of CPAP. Discussed with him risks of complications with untreated sleep apnea. She will attempt to wear CPAP. Insomnia: Trazodone as needed nightly CKD: At risk of WHIT on CKD with IV diuretic. Monitor renal function. Ischemic cardiomyopathy: Has not been tolerant of LifeVest. DM2: Reviewed POC glucose. Down as low as 74. Will decrease Lantus to 5 units daily. Continue insulin/scale. Monitor blood glucose. Cont carbohydrate diet. CAD with scarring, minimal ischemia, no active ischemia on stress test of May, EF on nuclear scan at that time noted 16%, with LifeVest. Continue aspirin, Plavix, beta-radha once medications confirmed, statin. Recently assessed in ER due to urinary retention and has a Blair catheter since 07/12, Restrictive lung disease, HTN, monitor blood pressures. continue metoprolol. HLD, continue statin pancreatitis, COPD, mild exacerbation with some cough productive of phlegm. Inhaled budesonide. Breathing treatments scheduled and as needed. Flutter valve. Other medical problems Plan for today July 22, 2024. Patient reports increased coughing, increased tachypnea today. States that it is hard to breathe. Oxygen requirements are stable at 3 L/min, however he is tachypneic in conversation unable to complete full sentences. Lower extremity edema is improving over coughs, however continues to be persistent over his thighs and scrotum. He is net -3.4 L since admission. -100 cc since last night. On exam he has crackles and rhonchi worsened over the right upper lobe. Ordered chest x-ray to assess for interim change. Diffuse scattered wheezing to auscultation bilaterally. Currently on budesonide and albuterol inhalation will additionally add steroid for COPD exacerbation. ABG ordered, patient noted to be visibly tachypneic today in conversation. ABG showing worsening hypoxia with pH 7.37/37.1/53.5. Additionally ordered lower extremity Doppler to assess for possible DVT. Awaiting CTA of the chest to assess for PE since patient has baseline CKD with creatinine between 1.8-2.2.Laste chocardiogram from may 2024 with EF 25%, gr 3 diastolic dysfunction. C/o intermittent chest pain today, will order troponin series Chest x-ray taken this morning at 10 AM per my interpretation showing bilateral worsening infiltrates. Most likely represents worsening pulmonary edema, however possibility of superadded pneumonia not excluded at this time. Reviewed prior results. From July 19 negative for COVID influenza and RSV. No leukocytosis today. Afebrile thus far. Attestations 2 Medical Necessity Statement*: continued admission for iv diuresis- switching to lasix drip for worsening pulmonary edema, add steroids, troponin series for chest pain Diagnoses Acute exacerbation of CHF (congestive heart failure) I50.43 Heart failure type: combined systolic and diastolic Hyperkalemia E87.5 Air hunger R09.89
--- NOTE | 2024-07-22 11:16 | ECG_ITS ---
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 Measurements Intervals [place] Rate: 100 P: -72 CO: 169 QRS: 260 QRSD: 132 T: 74 QT: 412 QTc: 532 Interpretive Statements SINUS TACHYCARDIA RIGHT AXIS DEVIATION [QRS AXIS > 100] RIGHT BUNDLE BRANCH BLOCK [120+ ms QRS DURATION, UPRIGHT V1, 40+ ms S IN I/aVL/V4/V5/V6] POSSIBLE ANTERIOR MYOCARDIAL INFARCTION , OF INDETERMINATE AGE [30 ms Q WAVE IN V3/V4, OR R < 0.2 mV IN V4] ST DEPRESSION, CONSIDER SUBENDOCARDIAL INJURY [0.1+ mV ST DEPRESSION] Compared to ECG 07/22/2024 07:45:15 No significant changes Electronically Signed On 07-23-2024 00:03:10 CDT by Cholo Kelsey M.D. [email or web address]
--- NOTE | 2024-07-22 11:17 | USCV_ITS ---
Torey Kaba Age: 74 Gender: M : 1950 Exam Date: 07/22/2024 12:01 Ordering Phys: Vandana Oviedo MD Technologist: Exam Location: [facility] [place]: bilat edema PROCEDURES: The following venous structures were evaluated: common femoral vein, profunda vein, proximal portion of the greater saphenous vein, superficial femoral vein, and the popliteal vein. In addition, the posterior tibial and peroneal trunk were evaluated. FINDINGS: Normal 2-D Doppler and augmentation and compressibility throughout the lower extremity venous structures. Additional imaging through the proximal calf veins also reveals no thrombus. Limited evaluation of the greater saphenous vein is patent with no thrombus. Technically limited exam. Subcutaneous edema. CONCLUSIONS No DVT bilateral lower extremities. Dr. Araceli Loo DO (Electronically Signed) Final Date: 22 July 2024 15:16 S
[2024-07-22] MEDS: methylPREDNISolone sod succ 40 mg/mL INJ IVP ×2 (11:49→23:28)
[2024-07-22] MEDS: FUROsemide 100 MG in sodium chloride 0.9% 40 ML IV (11:50)
[2024-07-22] MEDS: insulin lispro 100 unit/1 mL SUBCUT (12:15)
[2024-07-22 12:55] LABS: Glucose Point of Care 365 mg/dL (70-110)
--- NOTE | 2024-07-22 13:16 | ECG_ITS ---
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 Measurements Intervals [place] Rate: 100 P: 217 [place]: 153 QRS: -87 QRSD: 137 T: 90 QT: 398 QTc: 515 Interpretive Statements SINUS TACHYCARDIA LEFT AXIS DEVIATION [QRS AXIS < -30] RIGHT BUNDLE BRANCH BLOCK [120+ ms QRS DURATION, UPRIGHT V1, 40+ ms S IN I/aVL/V4/V5/V6] POSSIBLE ANTERIOR MYOCARDIAL INFARCTION , OF INDETERMINATE AGE [30 ms Q WAVE IN V3/V4, OR R < 0.2 mV IN V4] ST DEPRESSION, CONSIDER SUBENDOCARDIAL INJURY [0.1+ mV ST DEPRESSION] Compared to ECG 07/22/2024 11:34:18 Left-axis deviation now present Right-axis deviation no longer present Myocardial infarct finding still present ST (T wave) deviation still present Electronically Signed On 07-23-2024 01:00:48 CDT by Cholo Kelsey M.D. [email or web address]
[2024-07-22 13:46] LABS: Troponin(5th) Baseline 68 ng/L (0-15)
[2024-07-22 13:56] LABS: D Dimer 7.27 ug/mLFEU (0-0.59)
[2024-07-22] MEDS: metOLazone 5 MG Tablet 2.5 MG PO ×2 (14:43→17:41)
[2024-07-22] MEDS: enoxaparin 30 mg/0.3 mL Syringe SUBCUT (14:44)
--- NOTE | 2024-07-22 15:25 | P.CONIM_ITS ---
Providers/Reason For Consult 2 Consulting Physician/Specialty*: Dr. Hemphill Reason for Consult*: CHF exacerbation Requesting Physician: Dr. Vandana Oviedo Attending Physician: Vandana Oviedo MD Primary Care Provider: ABDULLAHI Matta History of Present Illness History of Present Illness Torey Kaba is a very pleasant 74 year old male history of cardiomyopathy, EF 25% on last echo almost 1 year ago, CAD with scarring, minimal ischemia, no active ischemia on stress test of May, chronic systolic and diastolic CHF, on nasal cannula oxygen 3 L normally at home, recently assessed in ER due to urinary retention and has a Blair catheter since 07/12, ischemic cardiomyopathy, CKD, restrictive lung disease, DM 2, HTN, HLD, pancreatitis, COPD, known hepatocellular. Presented to ER with progressive edema, abdominal discomfort, weeping. He states he gained about 12 lbs in 1 week. He had been increasing diuretic dose at home from 1-2 then 4 tablets, but still without any noticeable improvement on the second day. He has been instructed to maintain 1 L fluid restriction but has been having trouble keeping with a due to his mouth getting dry while wearing oxygen. He has not been able to tolerate/wear his LifeVest, and we discussed the importance of this. He normally is on 2 L of oxygen at home. He has difficult time sleeping at night, often wakes up and has to sit up, feeling like he is lacking air. He has a history of sleep apnea but has not been able to tolerate his CPAP. He was admitted and started on IV lasix with oral metolazone. He has gained 4 pounds overnight despite diuretic therapy. BP is soft at 105/63. VSS. He has an obvious dry cough. He has severe orthopnea. No JVD present. Pitting edema bilaterally up to his thighs. HR is somewhat tachycardic up to 108. Currently on a lasix drip. He reports his symptoms have improved from yesterday. He states yesterday he had a chest pressure/pain in the center of his chest that resolved immediately when he sat up. Review of Systems 2 Narrative: Consitutional: denies fever, chills, body aches, or changes in appetite, denies abnormal weight loss Eyes: Denies changes in vision Card: Denies chest pain, palpitations, irregular heart rhythm, reports chronic edema improved, denies syncope, reports severe shortness of breath, orthopnea, Resp: Reports shortness of breath with minimal activity and lying down, denies hemoptysis, reports cough GI: denies abdominal pain, denies nausea or voimting, denies blood in stool : denies blood in urine, denies dysuria Musc: Denies extremity pain, denies limited range of motion or recent injury Skin: Denies rash, lesions, or wounds, denies changes to skin color Neuro: Denies nubmness in extremities, h/a, s/s of stroke Khari: Denies easy bruiding/bleeding All: Denies s/s of allergies Medications/Allergies Home Medications Medication Instructions Recorded Confirmed Last Taken Type aspirin 81 mg tablet,delayed 81 mg PO QAM 01/02/21 07/19/24 06/12/24 History release clopidogrel 75 mg tablet 75 mg PO BEDTIME 01/25/21 07/19/24 06/11/24 History fluticasone propionate 50 1 spray intranasal BID 04/20/21 07/19/24 06/11/24 History mcg/actuation nasal spray,suspension (Allergy Relief (fluticasone)) magnesium oxide 400 mg PO QAM 07/05/22 07/19/24 06/12/24 History diclofenac sodium 1 % topical gel 2 g topical QID PRN Pain 08/13/23 07/19/24 06/11/24 History fluticasone 250 mcg-salmeterol 50 1 inh inhalation BID 08/13/23 07/19/24 06/12/24 History mcg/dose blistr powdr for inhalation (Wixela Inhub) insulin aspart U-100 100 unit/mL See Rx Instructions .Route 12/08/23 07/19/24 Unknown History (3 mL) subcutaneous pen (Novolog .COMPLEX PRN blood sugar FlexPen U-100 Insulin aspart) nitroglycerin 0.4 mg sublingual 0.4 mg sublingual Q5M PRN Chest 01/22/24 07/19/24 Unknown Rx tablet (Nitrostat) Pain #30 tabs sulfasalazine 500 mg tablet 500 mg PO BID 06/12/24 07/19/24 Unknown History furosemide 40 mg tablet 40 mg PO DAILY Edema 30 days #30 06/20/24 07/19/24 06/12/24 Rx tabs metoprolol tartrate 25 mg tablet 12.5 mg (1/2 x 25 mg) PO 06/20/24 07/19/24 Unknown Rx BID@0900,2100 30 days #30 tabs pantoprazole 40 mg tablet,delayed 40 mg PO BID 30 days #60 tabs 06/20/24 07/19/24 Unknown Rx release (Protonix) potassium chloride 10 mEq 10 meq PO DAILY Edema 30 days #30 06/20/24 07/19/24 06/12/24 Rx tablet,extended release tabs empagliflozin 10 mg tablet 10 mg PO DAILY 30 days #30 tabs 07/04/24 07/19/24 Unknown Rx (Jardiance) Diabetic Shoes With Custom Molded #1 ea 07/10/24 07/19/24 Unknown Rx Inserts carvedilol 25 mg tablet 25 mg PO BID 07/19/24 07/19/24 Unknown History insulin glargine 100 unit/mL 38 unit SUBCUT BID 07/19/24 07/19/24 Unknown History subcutaneous solution (Lantus U-100 Insulin) lovastatin 20 mg tablet 20 mg PO DAILY 07/19/24 07/19/24 Unknown History sucralfate 1 gram tablet 1 g PO BID 07/19/24 07/19/24 Unknown History Allergies Allergy/AdvReac Type Severity Reaction Status Date / Time clindamycin Allergy Severe ADR/ALGY-Pa Verified 07/12/24 16:03 lpitations lactose Allergy Mild ADR-Abdominal Verified 07/12/24 16:03 Pain montelukast Allergy Mild dyspnea Verified 07/12/24 16:03 apricot Allergy Unknown Verified 07/12/24 16:03 Penicillins Allergy Unknown Verified 07/12/24 16:03 Current Medications Generic Name Dose Route Start Last Admin Trade Name Freq PRN Reason Stop Dose Admin Albuterol/Ipratropium 3 ml 07/19/24 20:00 07/22/24 14:05 Ipratropium-Albuterol 3 Ml Neb INHALATION 3 ml Q6H.RESP NIDHI Administration Aspirin 81 mg 07/20/24 06:00 07/22/24 05:10 Aspirin 81 Mg Ec Tablet PO 81 mg QAM NIDHI Administration Atorvastatin Calcium 20 mg 07/20/24 09:00 07/22/24 08:10 Atorvastatin 40 Mg Tablet PO 20 mg DAILY NIDHI Administration Budesonide 0.25 mg 07/19/24 20:00 07/22/24 09:38 Budesonide 0.5 Mg/2 Ml Neb INHALATION 0.25 mg BID.RESPIRATORY NIDHI Administration Clopidogrel Bisulfate 75 mg 07/19/24 21:00 07/21/24 21:07 Clopidogrel 75 Mg Tablet PO 75 mg BEDTIME NIDHI Administration Enoxaparin Sodium 30 mg 07/19/24 15:45 07/22/24 14:44 Enoxaparin 30 Mg/0.3 Ml Syringe SUBCUT 30 mg Q24H NIDHI Administration Guaifenesin 600 mg 07/19/24 09:00 07/22/24 08:11 Guaifenesin 600 Mg Tablet PO Not Given BID NIDHI Guaifenesin/Dextromethorphan 5 ml 07/20/24 12:09 07/22/24 08:10 Guaifenesin-Dextromethorphan Udc 10 Ml PO 5 ml Q4H PRN Administration COUGH Furosemide 100 mg/ Sodium 50 mls @ 0 mls/hr 07/22/24 11:15 07/22/24 11:50 Chloride IV 10 mg/hr .Q0M NIDHI 5 mls/hr Administration Protocol Per Protocol Insulin Glargine 5 unit 07/21/24 09:00 07/22/24 08:10 Insulin Glargine 100 Units/1 Ml SUBCUT 5 unit DAILY NIDHI Administration Insulin Human Lispro 0 unit 07/19/24 18:00 07/22/24 12:15 Insulin Lispro 100 Unit/1 Ml SUBCUT 12 unit WM&BEDTIME NIDHI Administration Protocol Methylprednisolone Sodium Succinate 40 mg 07/22/24 11:30 07/22/24 11:49 Methylprednisolone Sod Succ 40 Mg/Ml Inj IVP 40 mg Q12H NIDHI Administration Metoprolol Tartrate 12.5 mg 07/19/24 21:00 07/22/24 08:10 Metoprolol Tartrate 25 Mg Tablet PO 12.5 mg BID@0900,2100 NIDHI Administration Morphine Sulfate 5 mg 07/19/24 15:35 07/21/24 23:01 Morphine 10 Mg/0.5 Ml Oral Liq Ud PO 5 mg Q4H PRN Administration [employer]GER Pantoprazole Sodium 40 mg 07/19/24 18:00 07/22/24 08:[address] 40 Mg Tablet PO 40 mg BID NIDHI Administration Trazodone HCl 25 mg 07/19/24 15:36 07/21/24 21:06 Trazodone 50 Mg Tablet PO 25 mg BEDTIME PRN Administration INSOMNIA PFSH Acute 2 PFSH: Medical History Ischemic heart disease due to coronary artery obstruction Chronic systolic (congestive) heart failure Ischemic cardiomyopathy Sacroiliac dysfunction CKD (chronic kidney disease) Arthralgia Anemia Umbilical hernia, incarcerated Acute kidney injury Normochromic normocytic anemia Atherosclerosis of coronary artery of [place] heart without angina pectoris Sepsis Pleural effusion Community acquired pneumonia NSTEMI (non-ST elevated myocardial infarction) CHF exacerbation Restrictive lung disease Pneumonia Pancreatic cyst Pancreatitis Diabetes Hyperlipidemia Hypertension COPD (chronic obstructive pulmonary disease) Surgical History H/O esophagogastroduodenoscopy Hx of CABG History of coronary angioplasty with insertion of stent History of colonoscopy with polypectomy Family History Brother CAD (coronary artery disease) Diabetes Lung disease Sister CAD (coronary artery disease) Diabetes Cancer Lung disease Father CAD (coronary artery disease) Diabetes Lung disease Mother CAD (coronary artery disease) Diabetes Stroke Brother CAD (coronary artery disease) Diabetes Lung disease Brother CAD (coronary artery disease) Diabetes Sister CAD (coronary artery disease) Diabetes Lung disease Sister CAD (coronary artery disease) Diabetes Sister CAD (coronary artery disease) Diabetes Daughter Chronic kidney disease (CKD) Diabetes Denies family history of Clotting disorder Dementia Suicide Anesthesia complication Bleeding disorder Social History Smoking and tobacco/nicotine status: former use of tobacco/nicotine Quit status (tobacco/nicotine): has quit using Year quit tobacco: 1983 [id number] Second hand smoke exposure: No Alcohol intake: former Substance/Drug Use: never Adopted: No Caregiver/support person: Yes Lives independently: Yes Household members: spouse Housing: House Marital status: service: Yes Current occupational status: retired Pets and animals: No Leisure activites: exercise Sexually active: No Do you think of yourself as: Straight/Heterosexual Current gender identity: Male Mayra/Faith: Lutheran Special mayra needs: No Agree to transfusion: No Vitals/I&O/Wt Last Vital Signs Temp 98.0 F 07/22/24 11:59 Pulse 99 07/22/24 14:10 Resp 20 H 07/22/24 14:00 BP 105/63 07/22/24 11:59 Pulse Ox 96 07/22/24 14:00 O2 Del Method Nasal Cannula 07/22/24 14:00 O2 Flow Rate 3 07/22/24 14:00 07/22/24 07/22/24 07/22/24 06:59 14:59 22:59 Intake Total 240 / 240 240 / 480 Output Total 250 / 1925 100 / 100 Balance -250 / -905 140 / 140 240 / 380 Weight last 48 hrs Weight 228 lb 14.4 oz Weight 228 lb 14.4 oz Weight 224 lb Physical Exam 2 Narrative: General: No apparent distress, healthy appearing, well nourished Muskuloskeletal: Full ROM Respiratory: Normal respiratory effort, patient has dry cough, left lower lobe anteriorly diminished, right lower lobe anteriorly with crackles, posterior lower lobe bilaterally with crackles Cardio: No JVD, regular rate, regular rhythm, S1 S2 diminished, no murmurs, peripheral pulses 2+ throughout GI: abdomen severely distended, nontender, shifting dullness positive Extremities: Full ROM, normal capillary refill, no cyanosis, pitting edema up to the thighs bilaterally Neuro: Alert and oriented x4, no focal motor deficits Psych: Affect normal, denies suicidal ideation, mental status grossly normal Skin: No rashes or lesions noted, no wounds Data 07/22/24 03:07 07/22/24 03:07 Other data: 05/28/23 IMPRESSIONS 1. Myocardial perfusion imaging revealing extensive areas of myocardial scarring mostly in the distribution of all 3 coronary arteries more so in the distribution of the left anterior descending artery and circumflex artery with subtle areas of ischemia mostly in th circumflex artery distribution. 2. Markedly diminished LV ejection fraction of 16%. 3. Segmental wall motion analysis revealing severe diffuse hypokinesia of the left ventricle. 4. Markedly dilated LV cavity with an end-systolic volume of 237 mL Compared to the study from 07/18/2022, the ischemic burden appears to be much less(the summed score difference of 11 versus 2). The LV ejection fraction appears to be has any fairly decreased with a significant enlargement of the left ventricle. These features may suggest extensive reverse remodeling. 06/12/2024 Echo complete CONCLUSIONS Dilated left-ventricular with a thinned out septum. Severe diffuse hypokinesia with an ejection fraction of 25%. Grade III/IV diastolic dysfunction (restrictive filling pattern), severely elevated filling pressures. Dilated right ventricle with a moderately diminished ejection fraction. Moderate biatrial enlargement Moderate-severe mitral valve regurgitation. Minimally thickened aortic valve. Mild tricuspid valve regurgitation. Estimated pulmonary artery peak systolic pressure 40 mmHg. Moderate pulmonary valve regurgitation. There is no pericardial effusion. There are no intracardiac masses. Compared to the study from 08/13/2023, there is significant drop in the LV ejection fraction from 45% to 25% 07/22/2024 x-ray FINDINGS: Lungs: Increased opacity in the lungs bilaterally, particularly towards the lung bases. Pleural spaces: Bilateral pleural effusions are present larger on the right. Heart/Mediastinum: Stable enlargement of the cardiac silhouette. Cardiomediastinal silhouette is stable. Bones/joints: Findings of prior median sternotomy. A&P Assessment and plan (1) Abdominal distention: Most likely secondary to abdominal ascites with liver failure, possible abdominal distention increase ascites has post lungs and reduced diaphragmatic movement leading to further shortness of breath. Will ask for ultrasound of the abdomen if it shows patient has large ascites may need tap (2) Acute exacerbation of CHF (congestive heart failure): Agree with plan to administer Lasix drip. Continue fluid restriction. Patients symptoms have improved from yesterday. UOP looks good. Edema is improved per patient. Will see if he responds to lasix drip. It appeared to me that in case of large ascites if present may will be the main culprit rather than decompensated state of heart failure at the moment which is a contributing factor but may not be the primary culprit. Ultrasound of the abdomen will be ordered, further plan be advised as per progress of patient Qualifiers: Heart failure type: combined systolic and diastolic Qualified Code(s): I50.43 - Acute on chronic combined systolic (congestive) and diastolic (congestive) heart failure (3) Hypertension: BP soft. BP well controlled. Qualifiers: Hypertension type: essential hypertension Qualified Code(s): I10 - Essential (primary) hypertension (4) CKD (chronic kidney disease): Creatinine stable at 1.8, which is lower than patient's baseline. Will have to carefully diurese and monitor. Qualifiers: Chronic kidney disease stage: unspecified stage Qualified Code(s): N 18.9 - Chronic kidney disease, unspecified (5) Sleep apnea: Patient cannot tolerate CPAP. Qualifiers: Sleep apnea type: obstructive Qualified Code(s): G47.33 - Obstructive sleep apnea (adult) (pediatric) Plan Initiate lasix drip. Agree with this plan. Strict I and O with fluid restriction. Will continue to monitor patient response. Thank you, for allowing us to care for this very pleasant gentleman. Coding Level of Care Code Acute Code for Chg Fwd Diagnoses Abdominal distention R14.0 Acute exacerbation of CHF (congestive heart failure) I50.43 Heart failure type: combined systolic and diastolic Essential hypertension I10 Hypertension type: essential hypertension Chronic kidney disease, unspecified CKD stage N18.9 Chronic kidney disease stage: unspecified stage Obstructive sleep apnea syndrome G47.33 Sleep apnea type: obstructive
[2024-07-22 15:31] LABS: Troponin 5 2HR 66.47 ng/L (0-15)
[2024-07-22 15:32] LABS: Troponin 5 2HR Delta -1.53 ABS# (0-10)
[2024-07-22 15:52] LABS: Lactate (Lactic Acid level) 4.3 mmol/L (0.5-2.2)
--- NOTE | 2024-07-22 16:44 | ECG_ITS ---
[facility] Test Date: 2024-07-22 Pat Name: Torey Kaba Department: Room: 111 Gender: Male Licensed Surveyor: : 1950 Requested By: Vandana Oviedo Order Number: [id number] Lianna MD: Cholo Kelsey M.D. Measurements Intervals [place] Rate: 96 P: 261 CO: 158 QRS: -89 QRSD: 130 T: 120 QT: 407 QTc: 516 Interpretive Statements SINUS RHYTHM LEFT AXIS DEVIATION [QRS AXIS < -30] RIGHT BUNDLE BRANCH BLOCK [120+ ms QRS DURATION, UPRIGHT V1, 40+ ms S IN I/aVL/V4/V5/V6] ST DEPRESSION, CONSIDER SUBENDOCARDIAL INJURY [0.1+ mV ST DEPRESSION] Compared to ECG 07/22/2024 13:14:38 Sinus tachycardia no longer present Myocardial infarct finding no longer present ST (T wave) deviation still present Electronically Signed On 07-23-2024 01:01:53 CDT by Cholo Kelsey M.D. [email or web address]
[2024-07-22 16:53] LABS: Glucose Point of Care 117 mg/dL (70-110)
[2024-07-22] MEDS: cefTRIAXone 1,000 mg SDV 1000 MG IVP (17:49)
--- NOTE | 2024-07-22 17:50 | US_ITS ---
WS: [id number] Abdominal ultrasound, limited. History: Evaluate for ascites. Comparison: None. All 4 quadrants are imaged by ultrasound to evaluate for ascites. Small to moderate amount of ascites in all 4 quadrants. US/US abdomen lmt fluid [id number] IMPRESSION: Small to moderate amount of ascites.
[2024-07-22 19:14] LABS: Troponin 5 6HR 72.71 ng/L (0-15); Troponin 5 6HR Delta 4.71 ng/L (0-12)
[2024-07-22] MEDS: FUROsemide 100 MG in sodium chloride 0.9% 40 ML 7.5 MG IV (19:44)
[2024-07-22] MEDS: ondansetron 2 mg/ML SDV 2 mL 4 MG IVP (19:45)
[2024-07-22 20:55] LABS: Glucose Point of Care 119 mg/dL (70-110)
[2024-07-22] MEDS: clopidogrel 75 mg Tablet PO (21:03)
[2024-07-22 21:52] LABS: MRSA PCR OZH (swab) NOT DETECTED (Negative)
[2024-07-23] VITALS (32 sets, daily range): BP systolic 92–134; BP diastolic 54–81; PULSE 56–101; RESP 13–30; TEMP 36.6–37; O2SAT 90–98
[2024-07-23] MEDS: FUROsemide 100 MG in sodium chloride 0.9% 40 ML 7.5 MG IV ×4 (00:57→21:44)
[2024-07-23] MEDS: ipratropium-albuterol 3 mL Neb INHALATION ×3 (02:45→20:23)
[2024-07-23 04:05] LABS: Eosinophils % 0.1 %; Hematocrit 32.8 % (37-53); Lymphocytes # 0.2 10^3/uL (0.8-4.8); Lymphocytes % 2.7 %; Mean Corpuscular Hemoglobin 23.3 pg (27-33); Mean Corpuscular Volume 80.4 fl (82-101); Mean Platelet Volume 9.5 fL (7.4-10.4); Monocytes # 0.4 10^3/uL (0.2-0.9); Monocytes % 4.3 %; Neutrophils # 8.01 10^3/uL (1.8-7.7); Neutrophils % 92.6 %; Nucleated Red Blood Cells # 0.1 /100WBC; Nucleated Red Blood Cells % 0.8 %; Platelet Count 232 10^3/cmm (157-399); Red Blood Count 4.08 10^6/uL (3.85-5.65); Red Cell Distribution Width 20.2 % (12.1-15.1); White Blood Count 8.65 10^3/uL (3.29-11.43)
[2024-07-23 04:29] LABS: Alanine Aminotransferase 161 U/L (0-41); Albumin Level 3.5 g/dL (3.5-5.2); Alkaline Phosphatase 192 U/L (40-130); Aspartate Amino Transferase 486 U/L (0-40); Blood Urea Nitrogen 66 mg/dL (8-23); Calcium 8.5 mg/dL (8.5-10.5); Carbon Dioxide 22 mmol/L (22-29); Chloride 91 mmol/L (98-107); Creatinine Clr Calc Pharmacy 35.6059; Globulin 3.7 g/dL (1.3-4.6); Glucose 137 mg/dL (65-115); Osmolality Calculated 293 mOsm/kg (285-295); Sodium 131 mmol/L (136-145); Total Bilirubin 1.1 mg/dL (0.15-1.2); Total Protein 7.2 g/dL (6.6-8.7)
[2024-07-23 04:30] LABS: Lactate (Lactic Acid level) 2.8 mmol/L (0.5-2.2)
[2024-07-23] MEDS: aspirin 81 mg EC Tablet PO (05:08)
[2024-07-23 06:46] LABS: Glucose Point of Care 140 mg/dL (70-110)
[2024-07-23] MEDS: ondansetron 2 mg/ML SDV 2 mL 4 MG IVP (07:28)
[2024-07-23] MEDS: pantoprazole DR 40 mg Tablet PO ×2 (07:40→18:10)
[2024-07-23] MEDS: atorvastatin 40 mg Tablet 20 MG PO (07:41)
[2024-07-23] MEDS: guaiFENesin 600 mg Tablet PO ×2 (07:42→18:10)
[2024-07-23] MEDS: insulin glargine 100 units/1 mL 5 UNIT SUBCUT (07:42)
[2024-07-23] MEDS: metoprolol tartrate 25 mg Tablet 12.5 MG PO (07:43)
--- NOTE | 2024-07-23 09:28 | PC.CHAP ---
Pastoral Care Encounter/Spiritual Assessment Type of Contact [] Declined rubber goods assembler visit [] Patient/Family/Request visit [] Outpatient visit [] Follow-up visit [] Physician referral [] Code/Alert [x] Routine visit [] Staff referral [] Actively dying [] Patient sleeping [] Family support [] [] Out of room [] Palliative care [] [] Receiving care in room [] Pre-surgical visit [] Trauma [] Long length of stay [] ICU visit [] Other: Relational/Emotional Strength [x] Patient feels connected with others/family/visitors/staff [] Distress [] Loneliness/isolation [] Abandonment Spirituality of Patient [x] Person of Mayra [] Attends Catholic of their Mayra [x] Believes in Prayer [] Reads Bible or Anabaptist materials [] There are Spiritual issues to be addressed [place] Hand Interventions [x] Prayer [x] Active listening [x] Non-anxious presence [x] Spiritual/emotional support [] Crisis/trauma care [] Spiritual counseling [] Bereavement support [] Provided bereavement packet [] Provided Bible/devotional materials [] Provided toy/stuffed animal, coloring book to patient or family member [] Provided Communion [] Anointing/[place] [] Salvation [x] Completed spiritual assessment [] Other: Impact on Illness or Injury [] Angry [] Fearful [] Anxious [] Often cries [] Exhaustion [] Unable to work [] Unable to attend congregational [] Unable to walk/stand [] Unable to read [] Unable to drive [] Unable to eat/drink [] Unable to sleep [] Unable to be with family [] Patient intubated [] Other: Summary Time spent with patient 5 min
--- NOTE | 2024-07-23 09:38 | CT_ITS ---
WS: [id number] CT ABDOMEN AND PELVIS NONCONTRAST HISTORY: abdminal pain, distension TECHNIQUE: Imaging performed through the abdomen and pelvis. Coronal and sagittal reformats are submi tted. All CT scans at [facility] use at least one of these dose optimization techniques: auto mated exposure control; mA and/or kV adjustment per patient size (includes targeted exams where dose is matched to clinical indication); or iterative reconstruction. DLP: 1092.88 mGy.cm COMPARISON: 06/12/2024, 06/01/2023 Lower thorax: Marked soft tissue anasarca throughout the lower thorax has progressed. Small to modera te RIGHT pleural effusion has increased. Chronic LEFT pleural effusion with calcification is reidenti fied. This may be a chronic empyema. Heart is enlarged. Dependent atelectasis at the lung bases. Liver: Cirrhotic liver. Gallbladder: Small caliber gallbladder. Pancreas: Mild diffuse atrophy. Spleen: Normal. Adrenal glands: No change in either adrenal gland. Reidentified LEFT adrenal nodule measuring 12 mm. Right kidney: Mild atrophy. No obstruction. Very tiny cortical hyperdense nodule. Left kidney: Normal size with cortical hyperdensities and perinephric stranding. Aorta: Moderate atherosclerosis abdominal aorta with no aneurysm. Scattered calcifications in the mes enteric arteries. Small amount of ascites of the abdomen and pelvis with minimal increase since 06/12/2024. Marked soft tissue anasarca. GI tract: No obstruction. No colitis. Abdominal wall: Ventral abdominal wall hernias containing fat. Pelvis: Blair catheter in a nondistended urinary bladder. Osseous structures: Unremarkable. CT/CT abdomen pelvis wo con [id number] IMPRESSION: 1. Diffuse marked soft tissue edema and anasarca which has increased slightly since 06/12/2024. 2. Small to moderate RIGHT pleural effusion new since 06/12/2024. 3. Chronic small effusion with calcification at the LEFT lung base. 4. Cirrhotic liver. Heterogeneous liver. Attenuation change in the RIGHT lobe cannot be further evaluated on this unenhanced exam. Liver mass has been descri bed on prior studies. Cannot exclude mass or hepatic steatosis. Liver is diffic ult to image accurately due to patient's condition. Hepatoma has not been exclu ded. 5. Small amount of ascites in the abdomen and pelvis with slight increase sinc e 06/12/2024. 6. No GI tract obstruction. 7. Moderate to extensive vascular calcifications in the aorta and iliac and me senteric arteries.
--- NOTE | 2024-07-23 11:14 | PC.NURSE ---
Patient to transfer to ICU 11. Report called to ASPEN Kenny.
[2024-07-23] MEDS: heparin 5,000 unit/mL INJ 1 mL IVP (12:21)
[2024-07-23] MEDS: methylPREDNISolone sod succ 40 mg/mL INJ IVP ×2 (12:21→22:38)
[2024-07-23] MEDS: levoFLOXacin 750 mg Tablet PO (12:21)
[2024-07-23] MEDS: heparin drip 25,000 UNIT/500 ML PREMIX 28 UNIT IV (12:22)
[2024-07-23] MEDS: insulin lispro 100 unit/1 mL SUBCUT ×3 (12:27→20:46)
[2024-07-23] MEDS: bisacodyl 5 mg Tablet PO (12:35)
[2024-07-23] MEDS: norepinephrine 4 MG/250 ML BAG 7.5 MG IV (12:36)
[2024-07-23 12:39] LABS: Glucose Point of Care 152 mg/dL (70-110)
--- NOTE | 2024-07-23 12:46 | P.PN_ITS ---
Subjective 2 Subjective: Patient doing about the same. Still has a dry cough. Oxygen saturation 95% on nasal cannula. Patient's abdomen is slightly less distended than yesterday. Lung sounds have improved. Ultrasound of the abdomen showed small to moderate ascites. Patient has lost 8 lbs over 24 hours. Vitals/I&O/Wt Last Vital Signs Temp 97.9 F 07/23/24 08:00 Pulse 98 07/23/24 08:00 Resp 20 H 07/23/24 08:00 BP 107/60 07/23/24 08:00 Pulse Ox 95 07/23/24 08:00 O2 Del Method Nasal Cannula 07/23/24 08:00 O2 Flow Rate 3 07/23/24 07:48 07/22/24 07/23/24 07/23/24 22:59 06:59 14:59 Intake Total 290 / 530 50 / 580 170 / 170 Output Total 600 / 700 Balance 290 / 430 -550 / -120 170 / 170 Weight last 48 hrs Weight 220 lb 8 oz Weight 220 lb 8 oz Weight 220 lb 8 oz Weight 228 lb 14.4 oz Weight 228 lb 14.4 oz Physical Exam 2 Narrative: General: No apparent distress, healthy appearing, well nourished Muskuloskeletal: Full ROM Respiratory: Normal respiratory effort, patient has dry cough, bilateral lung mueller clear throughout Cardio: No JVD, regular rate, regular rhythm, S1 S2 diminished, no murmurs, peripheral pulses 2+ throughout GI: abdomen moderately distended Extremities: Full ROM, normal capillary refill, no cyanosis, pitting edema up to the thighs bilaterally Neuro: Alert and oriented x4, no focal motor deficits Psych: Affect normal, denies suicidal ideation, mental status grossly normal Skin: No rashes or lesions noted, no wounds Data 07/23/24 03:42 07/23/24 03:42 Other data: Abdominal US All 4 quadrants are imaged by ultrasound to evaluate for ascites. Small to moderate amount of ascites in all 4 quadrants. A&P Assessment and plan (1) Abdominal distention: This has improved, although still distended. Pt may need CTA abdomen/pelvis to further evaluate. May need lactulose for abdominal distention possible stool impaction (2) Acute exacerbation of CHF (congestive heart failure): Agree with plan to continue Lasix drip. Continue fluid restriction. Patients symptoms have improved from yesterday. UOP looks good. Edema is improved per patient. Abdominal distention improved. Patient has liver failure with anasarca. This may be more of the issue with the shortness of breath. Qualifiers: Heart failure type: combined systolic and diastolic Qualified Code(s): I50.43 - Acute on chronic combined systolic (congestive) and diastolic (congestive) heart failure (3) Hypertension: BP soft. Qualifiers: Hypertension type: essential hypertension Qualified Code(s): I10 - Essential (primary) hypertension (4) CKD (chronic kidney disease): Creatinine stable at 1.8, which is lower than patient's baseline. Will have to carefully diurese and monitor. Qualifiers: Chronic kidney disease stage: unspecified stage Qualified Code(s): N 18.9 - Chronic kidney disease, unspecified (5) Sleep apnea: Patient cannot tolerate CPAP. Qualifiers: Sleep apnea type: obstructive Qualified Code(s): G47.33 - Obstructive sleep apnea (adult) (pediatric) Plan * Continue lasix drip. Patient may need CT of the abdomen/pelvis to further evaluate for possible ascites. BP is soft. I discussed this case with Dr. Oviedo. The plan is to start the patient on levophed in hopes of improving perfusion and blood pressure to allow proper diuresis. CT abdomen/pelvis will be ordered as well. * * * Patient has poor prognosis discussed and drilled with the because of severe history of cardiomyopathy multiorgan failure including liver failure, her is in agreement however patient remains full code Attestations 2 Medical Necessity Statement*: Deferred to primary Coding Level of Care Code Acute Code for g Fwd Diagnoses Abdominal distention R14.0 Acute exacerbation of CHF (congestive heart failure) I50.43 Heart failure type: combined systolic and diastolic Essential hypertension I10 Hypertension type: essential hypertension Chronic kidney disease, unspecified CKD stage N18.9 Chronic kidney disease stage: unspecified stage Obstructive sleep apnea syndrome G47.33 Sleep apnea type: obstructive
[2024-07-23 12:52] LABS: Adenovirus Not Detected (NOT DETECT); Chlamydia Pneumoniae Not Detected (NOT DETECT); Coronavirus 229E,HKU1,NL63,OC4 Not Detected (NOT DETECT); Human Metapneumovirus Not Detected (NOT DETECT); Human Rhinovirus/Enterovirus Not Detected (NOT DETECT); Influenza A Not Detected (NOT DETECT); Influenza A H1 Not Detected (NOT DETECT); Influenza A H1-2009 Not Detected (NOT DETECT); Influenza A H3 Not Detected (NOT DETECT); Influenza B Not Detected (NOT DETECT); Mycoplasma Pneumoniae Not Detected (NOT DETECT); Parainfluenza Virus Type 1 Not Detected (NOT DETECT); Parainfluenza Virus Type 2 Not Detected (NOT DETECT); Parainfluenza Virus Type 3 Not Detected (NOT DETECT); Parainfluenza Virus Type 4 Not Detected (NOT DETECT); Respiratory Syncytial Virus A Not Detected (NOT DETECT); Respiratory Syncytial Virus B Not Detected (NOT DETECT); SARS-COV-2 Not Detected (NOT DETECT)
[2024-07-23] MEDS: heparin 5,000 unit/mL INJ 1 mL 5000 UNIT SUBCUT (14:32)
--- NOTE | 2024-07-23 15:26 | XR_ITS ---
WS: [id number] PORTABLE CHEST HISTORY: post PICC insertion COMPARISON: 07/22/2024 Right-sided PICC line with tip at the caval atrial junction in good position. Hazy attenuation from pulmonary edema. Layering bilateral pleural effusions, RIGHT greater than LEFT. Cardiac size: Heart is enlarged. Prior CABG. Mediastinum/Aorta: Normal mediastinum. No osseous abnormality seen. XR/XR chest 1V portable [id number] IMPRESSION: 1. Satisfactory placement of right-sided PICC line. 2. Pleural effusions and pulmonary edema.
--- NOTE | 2024-07-23 16:05 | P.PN_ITS ---
Subjective 2 Subjective: Patient continues to decline today. He is more lethargic, trending towards being encephalopathic. Oxygen requirement at 3 L/min. No significant urine output. Blood pressure soft, systolic ranging between 9200. Urine output of about 600 cc net -180 over the last 24 hours. Creatinine worsening at 2.3. Additionally developed transaminitis Medications: Reviewed: Yes Vitals/I&O/Wt Last Vital Signs Temp 97.9 F 07/23/24 08:00 Pulse 87 07/23/24 14:00 Resp 18 07/23/24 13:52 BP 92/62 07/23/24 12:46 Pulse Ox 96 07/23/24 13:52 O2 Del Method Nasal Cannula 07/23/24 13:52 O2 Flow Rate 3 07/23/24 13:52 07/23/24 07/23/24 07/23/24 06:59 14:59 22:59 Intake Total 50 / 580 320 / 320 Output Total 600 / 700 Balance -550 / -120 320 / 320 Weight last 48 hrs Weight 100.017 kg Weight 100.017 kg Weight 100.017 kg Weight 103.827 kg Weight 103.827 kg Physical Exam 2 Narrative: General: Lethargic, becoming more drowsy today. HEENT: PERRLA, pupils bilaterally equal and reactive, pallors not present Chest: Coarse breath sounds RUL with ronchi, left with scattered wheezing CVS: S1-S2 regular, no murmurs, no tachycardia, no gallops, no rubs Abdomen: Soft, nontender, no organomegaly, umbilical hernia present Neuro: No focal deficits, no facial deformity, AO x3, power 5/5 in all limbs Extremities: pitting edema B/L LE more over thigh and scrotum Data 07/23/24 03:42 07/23/24 03:42 A&P Assessment and plan (1) Acute exacerbation of CHF (congestive heart failure): Very bad anasarca, persistent including to his abdomen with abdominal wall edema of at least 2+. Severe exacerbation of systolic and diastolic CHF. Continue fluid restriction of 1000 mL. Continue IV Lasix 60 mg every 12 hours. Monitor intake and output. Reassess electrolytes with risk of deficiency with IV diuretics, reassess kidney function with risk of kidney injury. Reviewed vitals, CBC, CMP, magnesium. Recheck. Monitor on telemetry with risk of life-threatening arrhythmia. He has been intolerant of LifeVest and it has been discontinued. Qualifiers: Heart failure type: combined systolic and diastolic Qualified Code(s): I50.43 - Acute on chronic combined systolic (congestive) and diastolic (congestive) heart failure (2) Hyperkalemia: Reviewed potassium, resolved. Recheck chemistry. At risk of life-threatening arrhythmia, has been intolerant of LifeVest and it has been discontinued. Monitor on telemetry. Hold potassium supplements. Give IV Lasix/treat CHF exacerbation as above. (3) Air hunger: Discussed with him may trial low-dose morphine only when alert in case of air hunger symptoms which he states cycle with shortness of breath and anxiety despite normal oxygen saturation. Discussed risks with morphine including mental status suppression, respiratory depression as per discussion risk of tolerance. In his case he would be used as palliative nature given advanced heart disease accompanied by systemic symptoms with air hunger at rest. As per discussion not to be used as a sleep aid. (4) Cardiogenic shock: (5) Transaminitis: (6) Acute kidney injury: Plan MARIELENA: Has been intolerant of CPAP. Discussed with him risks of complications with untreated sleep apnea. She will attempt to wear CPAP. Insomnia: Trazodone as needed nightly CKD: At risk of WHIT on CKD with IV diuretic. Monitor renal function. Ischemic cardiomyopathy: Has not been tolerant of LifeVest. DM2: Reviewed POC glucose. Down as low as 74. Will decrease Lantus to 5 units daily. Continue insulin/scale. Monitor blood glucose. Cont carbohydrate diet. CAD with scarring, minimal ischemia, no active ischemia on stress test of May, EF on nuclear scan at that time noted 16%, with LifeVest. Continue aspirin, Plavix, beta-radha once medications confirmed, statin. Recently assessed in ER due to urinary retention and has a Blair catheter since 07/12, Restrictive lung disease, HTN, monitor blood pressures. continue metoprolol. HLD, continue statin pancreatitis, COPD, mild exacerbation with some cough productive of phlegm. Inhaled budesonide. Breathing treatments scheduled and as needed. Flutter valve. Other medical problems Plan for today July 22, 2024. Patient reports increased coughing, increased tachypnea today. States that it is hard to breathe. Oxygen requirements are stable at 3 L/min, however he is tachypneic in conversation unable to complete full sentences. Lower extremity edema is improving over coughs, however continues to be persistent over his thighs and scrotum. He is net -3.4 L since admission. -100 cc since last night. On exam he has crackles and rhonchi worsened over the right upper lobe. Ordered chest x-ray to assess for interim change. Diffuse scattered wheezing to auscultation bilaterally. Currently on budesonide and albuterol inhalation will additionally add steroid for COPD exacerbation. ABG ordered, patient noted to be visibly tachypneic today in conversation. ABG showing worsening hypoxia with pH 7.37/37.1/53.5. Additionally ordered lower extremity Doppler to assess for possible DVT. Awaiting CTA of the chest to assess for PE since patient has baseline CKD with creatinine between 1.8-2.2.Laste chocardiogram from may 2024 with EF 25%, gr 3 diastolic dysfunction. C/o intermittent chest pain today, will order troponin series Chest x-ray taken this morning at 10 AM per my interpretation showing bilateral worsening infiltrates. Most likely represents worsening pulmonary edema, however possibility of superadded pneumonia not excluded at this time. Reviewed prior results. From July 19 negative for COVID influenza and RSV. No leukocytosis today. Afebrile thus far. July 23, 2024 Patient is clinically worse today. He is more lethargic, trending towards being encephalopathic. Still able to follow conversation, answer simple questions but very sleepy. LFTs are worse today. AST has increased to 486, ALT up to 161, T. bili 1.1, alkaline phosphatase 192, not significantly changed over previous. Given the transaminitis suspect this is related to hepatic congestion versus shock liver from poor perfusion. Creatinine has additionally worsened today at 2.3. Lactate checked yesterday at 4, at 2.8 on serial check this morning. Poor urine output. With developing encephalopathy, worsening liver and kidney function, elevated lactate concern for multiorgan failure most likely from cardiogenic/circulatory shock. Systolic blood pressure currently ranging between 90-100. MAP greater than 65, however given signs of organ hypoperfusion, would move patient to the ICU and start pressor support with Levophed with a target MAP greater than 72. Continue lasix gtt. closely monitor kideny function. Discussed plan with cardiology. Levophed preferred over dobutamine at this time per cardiology recommendations. D-dimer returned elevated at 7. Possibility of PE not excluded at this time. Start on heparin infusion weight-based protocol. Will obtain a VQ scan, unable to be performed until tomorrow to assess for PE. Until then to remain on presumptive anticoagulation. Check Ct abdomen to evaluate for biliary obstruction. Prognosis is guarded. Discussed with patient and at bedside. Both acknowledged understanding of his grave illness and poor prognosis. Patient's states that she would not like the patient to be on a ventilator or undergo CPR should it come to that situation, however at this time patient would like everything done including CPR and intubation. Attestations 2 Medical Necessity Statement*: cardiogenic shock , need for pressor support, move to ICU Critical Care Time: The high probability of a clinically significant, sudden or life threatening deterioration of the patient's [cardiac, ,respiratory, GI] system(s) required my full and direct attention, intervention and personal management. The critical care time is as shown. This time is in addition to time spent performing any reported procedures but includes the following: [x] Data and vital sign review and interpretation [x] Patient assessment, examination and intervention [x] Documentation [x] Medication orders and management Critical Care Time (min): 60 Coding Level of Care Code Critical Care >/= 30 minutes Diagnoses Acute exacerbation of CHF (congestive heart failure) I50.43 Heart failure type: combined systolic and diastolic Hyperkalemia E87.5 Air hunger R09.89 Cardiogenic shock R57.0 Transaminitis R74.01 Acute kidney injury N17.9
--- NOTE | 2024-07-23 16:32 | PICC.NOTE ---
Triple lumen PICC placed to right brachial vein. Referred to vascular access nurse for PICC placement due to use of vasopressors and heparin. Risks and benefits discussed and informed consent obtained from pt. Right arm assessed with right brachial vein measuring 3.7 mm, straight, and apparent best choice for placement. Using sterile technique and MST, right brachial vein accessed x 1 stick. Mid-arm circumference measured 10 cm from right AC 26 cm. Trimmed cath 43 cm with 0 cm external length noted. CXR shows tip in cavoatrial junction, in good position for use per radiologist. Line secured with stat-lock. Insertion site covered with Biopatch and TSM. Report given to bedside nurse, ASPEN Kenny.
[2024-07-23 17:57] LABS: Glucose Point of Care 183 mg/dL (70-110)
[2024-07-23] MEDS: cefTRIAXone 1,000 mg SDV 1000 MG IVP (18:10)
[2024-07-23 19:04] LABS: Partial Thromboplastin Time 93.6 SECONDS (23.9-36.7)
[2024-07-23 20:21] LABS: Glucose Point of Care 207 mg/dL (70-110)
[2024-07-23] MEDS: budesonide 0.5 mg/2 mL Neb 0.25 MG INHALATION (20:22)
[2024-07-23] MEDS: clopidogrel 75 mg Tablet PO (20:45)
[2024-07-23] MEDS: guaiFENesin-dextromethorphan UDC 10 mL 5 ML PO (22:35)
[2024-07-23] MEDS: trazodone 50 mg Tablet 25 MG PO (22:41)
[2024-07-24] VITALS (100 sets, daily range): BP systolic 80–128; BP diastolic 57–96; PULSE 76–100; RESP 13–35; TEMP 36.5–36.6; O2SAT 70–98
[2024-07-24] MEDS: ipratropium-albuterol 3 mL Neb INHALATION ×4 (02:32→19:50)
[2024-07-24 03:28] LABS: Eosinophils % 0.1 %; Hematocrit 32.1 % (37-53); Lymphocytes # 0.2 10^3/uL (0.8-4.8); Lymphocytes % 1.9 %; Mean Corpuscular HGB Conc 28.7 g/dL (30-55); Mean Corpuscular Hemoglobin 22.9 pg (27-33); Monocytes # 0.5 10^3/uL (0.2-0.9); Monocytes % 5.1 %; Neutrophils # 8.34 10^3/uL (1.8-7.7); Neutrophils % 92.7 %; Nucleated Red Blood Cells # 0.1 /100WBC; Nucleated Red Blood Cells % 0.6 %; Platelet Count 247 10^3/cmm (157-399); Red Blood Count 4.01 10^6/uL (3.85-5.65); Red Cell Distribution Width 19.9 % (12.1-15.1)
[2024-07-24] MEDS: FUROsemide 100 MG in sodium chloride 0.9% 40 ML 7.5 MG IV (04:03)
[2024-07-24 04:30] LABS: Partial Thromboplastin Time 66.5 SECONDS (23.9-36.7)
[2024-07-24 04:34] LABS: Alanine Aminotransferase 249 U/L (0-41); Albumin Level 3.2 g/dL (3.5-5.2); Alkaline Phosphatase 201 U/L (40-130); Anion Gap 20.3 (5-19); Aspartate Amino Transferase 490 U/L (0-40); Carbon Dioxide 22 mmol/L (22-29); Chloride 91 mmol/L (98-107); Creatinine Clr Calc Pharmacy 29.7979; Globulin 3.7 g/dL (1.3-4.6); Glucose 163 mg/dL (65-115); Osmolality Calculated 295 mOsm/kg (285-295); Potassium 5.3 mmol/L (3.5-5.1); Sodium 128 mmol/L (136-145); Total Bilirubin 0.9 mg/dL (0.15-1.2); Total Protein 6.9 g/dL (6.6-8.7)
[2024-07-24 04:44] LABS: Blood Urea Nitrogen 83 mg/dL (8-23)
[2024-07-24] MEDS: aspirin 81 mg EC Tablet PO (05:37)
--- NOTE | 2024-07-24 05:38 | PC.NURSE ---
Melita Brooks: Telephone order from Dr. Perez to pause Melita brooks @[phone]. See MAR .
[2024-07-24] MEDS: heparin drip 25,000 UNIT/500 ML PREMIX 26 UNIT IV (07:02)
[2024-07-24 08:02] LABS: Glucose Point of Care 162 mg/dL (70-110)
[2024-07-24] MEDS: atorvastatin 40 mg Tablet 20 MG PO (08:13)
[2024-07-24] MEDS: guaiFENesin 600 mg Tablet PO ×2 (08:13→17:12)
[2024-07-24] MEDS: pantoprazole DR 40 mg Tablet PO ×2 (08:13→17:12)
[2024-07-24] MEDS: insulin glargine 100 units/1 mL 5 UNIT SUBCUT (08:13)
[2024-07-24] MEDS: sennosides-docusate Tablet 1 TAB PO (08:13)
[2024-07-24] MEDS: insulin lispro 100 unit/1 mL SUBCUT ×4 (08:14→20:27)
--- NOTE | 2024-07-24 09:14 | NM_ITS ---
WS: [id number] NUCLEAR MEDICINE PERFUSION LUNG SCAN HISTORY: evaluate for PE COMPARISON: 07/23/2024 chest radiograph. Prior VQ scan 03/23/2021 TECHNIQUE: Perfusion: 5.5 mCi of technetium 99m MAA IV. New, segmental wedge-shaped defect in the central anterior RIGHT lung. This defect corresponds to ple ural effusion extending along the fissure. The lung is not well aerated in this location on the prior recent chest radiograph. Mild attenuation of radionuclide over the lungs due to the pleural effusion s. Heart is large. VA/VA pul perfusion [id number] IMPRESSION: New wedge-shaped defect over the central anterior RIGHT lung. This corresponds to pleural fluid extending into the fissure on the chest radiograph. Differenti al would include a pulmonary embolism but this also may be due to pleural fluid with atelectasis. Indeterminate for PE.
--- NOTE | 2024-07-24 09:38 | USCV_ITS ---
Torey Kaba Age: 74 Gender: M : 1950 Exam Date: 07/24/2024 17:44 Ordering Phys: Vandana Oviedo MD Technologist: Rashad Moon [place] [facility] [place]: SOB BP: 83 / 63 HR: 95 Rhythm: Atrial fibrillation Technical Quality: Adequate MEASUREMENTS (Male / Female) Normal Values 2D ECHO LV Diastolic Diameter PLAX 6.2 cm 4.2 - 5.9 / 3.9 - 5.3 cm IVS Diastolic Thickness 1.1 cm 0.6 - 1.0 / 0.6 - 0.9 cm IVS Systolic Thickness 1.2 cm LVPW Diastolic Thickness 1.6 cm 0.6 - 1.0 / 0.6 - 0.9 cm LVPW Systolic Thickness 1.6 cm LVOT Diameter 2.0 cm LV Ejection Fraction 2D Teich 13.2 % LV Ejection Fraction MOD 4C 43.8 % LV Ejection Fraction MOD 2C 12.5 % LV Ejection Fraction 2C AL 13.3 % LA Diameter 5.9 cm Aorta at Sinotubular Diameter 2.5 cm IVC Diameter 2.6 cm M-MODE LA Ao Ratio MM 1.8 AV Cusp Separation MM 1.2 cm DOPPLER AV Peak Velocity 116.0 cm/s LVOT Peak Velocity 64.0 cm/s AV Area Cont Eq vti 1.5 cm squared AV Area Cont Eq pk 1.7 cm squared MV Peak Velocity 106.0 cm/s MV Area PHT 4.1 cm squared Mitral E to A Ratio 179.0 TV Peak Velocity 224.3 cm/s TR Peak Velocity 258.0 cm/s TR Peak Gradient 26.6 mmHg TV Peak E Velocity 60.0 cm/s Right Atrial Pressure 10.0 mmHg Pulmonary Artery Systolic Pressu 36.6 mmHg PV Peak Velocity 69.0 cm/s FINDINGS Left Ventricle Dilated left ventricle with thinning of septum. Severely reduced left ventricle systolic function. Akinesis of distal anteroseptal anterolateral wall segments. Severe hypokinesis of rest of the wall segments and flattening of septum due to raised RV pressures. Overall LVEF 20%. Right Ventricle Moderately dilated right ventricle with reduced RV systolic function. Right Atrium Moderately increased right atrial size. Left Atrium Markedly dilated left atrium Mitral Valve Thickened mitral valve severe mitral regurgitation with central jet. The mechanism of severe regurgitation is lack of coaptation of valve leaflets. Aortic Valve Thickened aortic valve. Trace aortic valve regurgitation. No aortic valve stenosis. Tricuspid Valve Structurally normal tricuspid valve. Mild tricuspid valve regurgitation. Tricuspid peak gradient 26 mmHg. Pulmonic Valve Pulmonic valve not well visualized. Mild pulmonary valve regurgitation. Pericardium Small pericardial effusion around the inferior surface of the heart. Aorta Normal size aortic root and proximal ascending aorta. IVC Dilated IVC with reduced respiratory variations. CONCLUSIONS Severely reduced LV systolic function. Estimated LVEF 20%. Cardiomyopathy with four-chamber dilatation. Severe mitral regurgitation. Mild tricuspid regurgitation with elevated RV and pulmonary pressure. Estimated pulmonary artery systolic pressure 40 to 45 mmHg. Yariel Aguilar MD (Electronically Signed) Final Date: 25 July 2024 09:42 S
[2024-07-24] MEDS: budesonide 0.5 mg/2 mL Neb 0.25 MG INHALATION ×2 (09:51→19:50)
[2024-07-24] MEDS: albumin 25 G/100 ML BAG 60 G IV ×2 (10:32→17:12)
[2024-07-24] MEDS: methylPREDNISolone sod succ 40 mg/mL INJ IVP ×2 (10:33→22:52)
[2024-07-24 12:28] LABS: Glucose Point of Care 234 mg/dL (70-110)
[2024-07-24 14:38] LABS: Partial Thromboplastin Time 116.5 SECONDS (23.9-36.7)
--- NOTE | 2024-07-24 14:48 | P.PN_ITS ---
Subjective 2 Subjective: Clinically appears to be improving today. He is more awake and alert. Less tachypneic in conversation. Renal function worsening. Urine output 600 cc overall net +1 L. Medications: Reviewed: Yes Vitals/I&O/Wt Last Vital Signs Temp 97.7 F 07/24/24 12:00 Pulse 97 07/24/24 12:45 Resp 19 H 07/24/24 12:45 BP 114/72 07/24/24 12:45 Pulse Ox 93 07/24/24 12:30 O2 Del Method Nasal Cannula 07/24/24 09:52 O2 Flow Rate 3 07/24/24 09:52 07/23/24 07/24/24 07/24/24 22:59 06:59 14:59 Intake Total 389.833 / 709.833 433.483 / 1143.316 864.434 / 864.434 Output Total 200 / 200 400 / 600 Balance 189.833 / 509.833 33.483 / 543.316 864.434 / 864.434 Weight last 48 hrs Weight 100.652 kg Weight 100.017 kg Weight 100.017 kg Weight 100.017 kg Physical Exam 2 Narrative: General: More awake and alert today. Able to manipulate his cell phone. Less tachypneic. HEENT: PERRLA, pupils bilaterally equal and reactive, pallors not present Chest: Crackles to auscultation bilaterally CVS: S1-S2 regular, no murmurs, no tachycardia, no gallops, no rubs Abdomen: Soft, nontender, no organomegaly, bowel sounds present Extremities bilateral pitting edema to thigh. Data 07/24/24 03:02 07/24/24 04:05 A&P Assessment and plan (1) Acute exacerbation of CHF (congestive heart failure): Very bad anasarca, persistent including to his abdomen with abdominal wall edema of at least 2+. Severe exacerbation of systolic and diastolic CHF. Continue fluid restriction of 1000 mL. Continue IV Lasix 60 mg every 12 hours. Monitor intake and output. Reassess electrolytes with risk of deficiency with IV diuretics, reassess kidney function with risk of kidney injury. Reviewed vitals, CBC, CMP, magnesium. Recheck. Monitor on telemetry with risk of life-threatening arrhythmia. He has been intolerant of LifeVest and it has been discontinued. Qualifiers: Heart failure type: combined systolic and diastolic Qualified Code(s): I50.43 - Acute on chronic combined systolic (congestive) and diastolic (congestive) heart failure (2) Hyperkalemia: Reviewed potassium, resolved. Recheck chemistry. At risk of life-threatening arrhythmia, has been intolerant of LifeVest and it has been discontinued. Monitor on telemetry. Hold potassium supplements. Give IV Lasix/treat CHF exacerbation as above. (3) Air hunger: Discussed with him may trial low-dose morphine only when alert in case of air hunger symptoms which he states cycle with shortness of breath and anxiety despite normal oxygen saturation. Discussed risks with morphine including mental status suppression, respiratory depression as per discussion risk of tolerance. In his case he would be used as palliative nature given advanced heart disease accompanied by systemic symptoms with air hunger at rest. As per discussion not to be used as a sleep aid. (4) Cardiogenic shock: (5) Transaminitis: (6) Acute kidney injury: Plan MARIELENA: Has been intolerant of CPAP. Discussed with him risks of complications with untreated sleep apnea. She will attempt to wear CPAP. Insomnia: Trazodone as needed nightly CKD: At risk of WHIT on CKD with IV diuretic. Monitor renal function. Ischemic cardiomyopathy: Has not been tolerant of LifeVest. DM2: Reviewed POC glucose. Down as low as 74. Will decrease Lantus to 5 units daily. Continue insulin/scale. Monitor blood glucose. Cont carbohydrate diet. CAD with scarring, minimal ischemia, no active ischemia on stress test of May, EF on nuclear scan at that time noted 16%, with LifeVest. Continue aspirin, Plavix, beta-radha once medications confirmed, statin. Recently assessed in ER due to urinary retention and has a Blair catheter since 07/12, Restrictive lung disease, HTN, monitor blood pressures. continue metoprolol. HLD, continue statin pancreatitis, COPD, mild exacerbation with some cough productive of phlegm. Inhaled budesonide. Breathing treatments scheduled and as needed. Flutter valve. Other medical problems Plan for today July 22, 2024. Patient reports increased coughing, increased tachypnea today. States that it is hard to breathe. Oxygen requirements are stable at 3 L/min, however he is tachypneic in conversation unable to complete full sentences. Lower extremity edema is improving over coughs, however continues to be persistent over his thighs and scrotum. He is net -3.4 L since admission. -100 cc since last night. On exam he has crackles and rhonchi worsened over the right upper lobe. Ordered chest x-ray to assess for interim change. Diffuse scattered wheezing to auscultation bilaterally. Currently on budesonide and albuterol inhalation will additionally add steroid for COPD exacerbation. ABG ordered, patient noted to be visibly tachypneic today in conversation. ABG showing worsening hypoxia with pH 7.37/37.1/53.5. Additionally ordered lower extremity Doppler to assess for possible DVT. Awaiting CTA of the chest to assess for PE since patient has baseline CKD with creatinine between 1.8-2.2.Laste chocardiogram from may 2024 with EF 25%, gr 3 diastolic dysfunction. C/o intermittent chest pain today, will order troponin series Chest x-ray taken this morning at 10 AM per my interpretation showing bilateral worsening infiltrates. Most likely represents worsening pulmonary edema, however possibility of superadded pneumonia not excluded at this time. Reviewed prior results. From July 19 negative for COVID influenza and RSV. No leukocytosis today. Afebrile thus far. July 23, 2024 Patient is clinically worse today. He is more lethargic, trending towards being encephalopathic. Still able to follow conversation, answer simple questions but very sleepy. LFTs are worse today. AST has increased to 486, ALT up to 161, T. bili 1.1, alkaline phosphatase 192, not significantly changed over previous. Given the transaminitis suspect this is related to hepatic congestion versus shock liver from poor perfusion. Creatinine has additionally worsened today at 2.3. Lactate checked yesterday at 4, at 2.8 on serial check this morning. Poor urine output. With developing encephalopathy, worsening liver and kidney function, elevated lactate concern for multiorgan failure most likely from cardiogenic/circulatory shock. Systolic blood pressure currently ranging between 90-100. MAP greater than 65, however given signs of organ hypoperfusion, would move patient to the ICU and start pressor support with Levophed with a target MAP greater than 72. Continue lasix gtt. closely monitor kideny function. Discussed plan with cardiology. Levophed preferred over dobutamine at this time per cardiology recommendations. D-dimer returned elevated at 7. Possibility of PE not excluded at this time. Start on heparin infusion weight-based protocol. Will obtain a VQ scan, unable to be performed until tomorrow to assess for PE. Until then to remain on presumptive anticoagulation. Check Ct abdomen to evaluate for biliary obstruction. Prognosis is guarded. Discussed with patient and at bedside. Both acknowledged understanding of his grave illness and poor prognosis. Patient's states that she would not like the patient to be on a ventilator or undergo CPR should it come to that situation, however at this time patient would like everything done including CPR and intubation. July 24, 2024. Patient is more alert today. He is able to work on his phone. Less tachypneic. Urine output only 600 cc. Net +1 L since last 24 hours. Creatinine worsening at 2.7 today. BUN 83. Lasix drip was discontinued last night at 4 AM due to increasing BUN. Off Levophed this morning with a MAP of 83. Underwent nuclear medicine perfusion scan today which showed a new wedge-shaped defect over the central anterior right lung. Differential includes PE versus pleural effusion with atelectasis. Study was overall indeterminate for PE. Will continue presumptive anticoagulation with heparin for now since PE cannot be conclusively excluded. Patient appears to be slightly clinically better today. Echocardiogram ordered Limited study to assess for any right heart strain which could additionally help determine presence of PE. Cheetah monitoring performed this morning shows SVV 2.9%, not fluid responsive. Trial of albumin every 8 hours and then attempt to improve oncotic pressure. Medication list reconciled for any nephrotoxic medications. Will resume Lasix drip for now at 10 mg/h, nephrology consult today given worsening kidney function with ongoing diuresis, poor urine output. Attestations 2 Medical Necessity Statement*: To be placed back on diuretic drip, worsening kidney function needing further evaluation, continuation of heparin drip. Coding Level of Care Code Acute Code for [facility] Diagnoses Acute exacerbation of CHF (congestive heart failure) I50.43 Heart failure type: combined systolic and diastolic Hyperkalemia E87.5 Air hunger R09.89 Cardiogenic shock R57.0 Transaminitis R74.01 Acute kidney injury N17.9
[2024-07-24 17:07] LABS: Glucose Point of Care 222 mg/dL (70-110)
[2024-07-24] MEDS: cefTRIAXone 1,000 mg SDV 1000 MG IVP (17:12)
--- NOTE | 2024-07-24 18:25 | P.CONIM_ITS ---
Providers/Reason For Consult 2 Consulting Physician/Specialty*: sadie cerda md / telenephrology Reason for Consult*: WHIT on CKD Requesting Physician: Dr Tiffani Oviedo Attending Physician: Vandana Oviedo MD Primary Care Provider: ABDULLAHI Matta History of Present Illness History of Present Illness Torey Kaba is a 74 year old male w/ combined HF reduced EF of 25% and gradeIII/IV Diastolic dyfunction, EV dysfunction, moderate to severe Mitral regurgitation, restrictive lung disease, DM 2, HTN, HLD, pancreatitis, MARIELENA, COPD, home NC02 dependent. He was admitted on 07/19/24, w/ edema, SOB. He was found to have pleural effusions and started on furosemide- has required up- titration to furosemide drip and metolazone by 07-22-24 and ceftriaxone was added . Hisbd alonso w tinal ascites. Patient has become lethargic an increased lft's- moved to ICU fr pressor port on 07-23-24. He had a nuclear medicine perfusion scan which revealed a new wedge-shaped defect over the central anterior right lung. Differential includes PE versus pleural effusion with atelectasis. Study was overall indeterminate for PE. He is on anticoagulation with heparin for as PE can not bbe excluded. Renal is called today for oliguric WHIT, hyponatremia, and hyperkalemia. His creatinine was 1.4- 1.7 mg/ dl in November 2023. In May 2024 when he had a CHF exacerbation- his cr stephanie to 2.1- 2.5 mg/dl. On this admission he arrived with a cr of 2.2 mg/dl- improved to 1.8 mg/dl and stephanie over last 2 days to 2.7 mg/dl. He is weak and lethargic and somewhat short of breath in bed using nasal cannula oxygen. Review of Systems 2 Narrative: Short of breath, abdominal discomfort, chest discomfort weakness and lethargy. Nausea poor appetite patient has a Blair catheter to urinate Medications/Allergies Home Medications Medication Instructions Recorded Confirmed Last Taken Type aspirin 81 mg tablet,delayed 81 mg PO QAM 01/02/21 07/19/24 06/12/24 History release clopidogrel 75 mg tablet 75 mg PO BEDTIME 01/25/21 07/19/24 06/11/24 History fluticasone propionate 50 1 spray intranasal BID 04/20/21 07/19/24 06/11/24 History mcg/actuation nasal spray,suspension (Allergy Relief (fluticasone)) magnesium oxide 400 mg PO QAM 07/05/22 07/19/24 06/12/24 History diclofenac sodium 1 % topical gel 2 g topical QID PRN Pain 08/13/23 07/19/24 06/11/24 History fluticasone 250 mcg-salmeterol 50 1 inh inhalation BID 08/13/23 07/19/24 06/12/24 History mcg/dose blistr powdr for inhalation (Wixela Inhub) insulin aspart U-100 100 unit/mL See Rx Instructions .Route 12/08/23 07/19/24 Unknown History (3 mL) subcutaneous pen (Novolog .COMPLEX PRN blood sugar FlexPen U-100 Insulin aspart) nitroglycerin 0.4 mg sublingual 0.4 mg sublingual Q5M PRN Chest 01/22/24 07/19/24 Unknown Rx tablet (Nitrostat) Pain #30 tabs sulfasalazine 500 mg tablet 500 mg PO BID 06/12/24 07/19/24 Unknown History furosemide 40 mg tablet 40 mg PO DAILY Edema 30 days #30 06/20/24 07/19/24 06/12/24 Rx tabs metoprolol tartrate 25 mg tablet 12.5 mg (1/2 x 25 mg) PO 06/20/24 07/19/24 Unknown Rx BID@0900,2100 30 days #30 tabs pantoprazole 40 mg tablet,delayed 40 mg PO BID 30 days #60 tabs 06/20/24 07/19/24 Unknown Rx release (Protonix) potassium chloride 10 mEq 10 meq PO DAILY Edema 30 days #30 06/20/24 07/19/24 06/12/24 Rx tablet,extended release tabs empagliflozin 10 mg tablet 10 mg PO DAILY 30 days #30 tabs 07/04/24 07/19/24 Unknown Rx (Jardiance) Diabetic Shoes With Custom Molded #1 ea 07/10/24 07/19/24 Unknown Rx Inserts carvedilol 25 mg tablet 25 mg PO BID 07/19/24 07/19/24 Unknown History insulin glargine 100 unit/mL 38 unit SUBCUT BID 07/19/24 07/19/24 Unknown History subcutaneous solution (Lantus U-100 Insulin) lovastatin 20 mg tablet 20 mg PO DAILY 07/19/24 07/19/24 Unknown History sucralfate 1 gram tablet 1 g PO BID 07/19/24 07/19/24 Unknown History Allergies Allergy/AdvReac Type Severity Reaction Status Date / Time clindamycin Allergy Severe ADR/ALGY-Pa Verified 07/12/24 16:03 lpitations lactose Allergy Mild ADR-Abdominal Verified 07/12/24 16:03 Pain montelukast Allergy Mild dyspnea Verified 07/12/24 16:03 apricot Allergy Unknown Verified 07/12/24 16:03 Penicillins Allergy Unknown Verified 07/12/24 16:03 Current Medications Generic Name Dose Route Start Last Admin Trade Name Freq PRN Reason Stop Dose Admin Albuterol/Ipratropium 3 ml 07/19/24 20:00 07/24/24 16:28 Ipratropium-Albuterol 3 Ml Neb INHALATION 3 ml Q6H.RESP NIDHI Administration Albuterol/Ipratropium 3 ml 07/19/24 16:22 07/23/24 02:45 Ipratropium-Albuterol 3 Ml Neb INHALATION 3 ml Q6H PRN Administration SHORTNESS OF BREATH Aspirin 81 mg 07/20/24 06:00 07/24/24 05:37 Aspirin 81 Mg Ec Tablet PO 81 mg QAM NIDHI Administration Atorvastatin Calcium 20 mg 07/20/24 09:00 07/24/24 08:13 Atorvastatin 40 Mg Tablet PO 20 mg DAILY NIDHI Administration Bisacodyl 5 mg 07/23/24 11:48 07/23/24 12:35 Bisacodyl 5 Mg Tablet PO 5 mg DAILY PRN Administration CONSTIPATION Budesonide 0.25 mg 07/19/24 20:00 07/24/24 09:51 Budesonide 0.5 Mg/2 Ml Neb INHALATION 0.25 mg BID.RESPIRATORY NIDHI Administration Ceftriaxone Sodium 1,000 mg 07/22/24 17:30 07/24/24 17:12 Ceftriaxone 1,000 Mg Sdv IVP 1,000 mg Q24H NIDHI Administration Protocol Clopidogrel Bisulfate 75 mg 07/19/24 21:00 07/23/24 20:45 Clopidogrel 75 Mg Tablet PO 75 mg BEDTIME NIDHI Administration Guaifenesin 600 mg 07/19/24 09:00 07/24/24 17:12 Guaifenesin 600 Mg Tablet PO 600 mg BID NIDHI Administration Guaifenesin/Dextromethorphan 5 ml 07/20/24 12:09 07/23/24 22:35 Guaifenesin-Dextromethorphan Udc 10 Ml PO 5 ml Q4H PRN Administration COUGH Heparin Sodium (Porcine) 5,000 unit 07/23/24 14:30 07/24/24 13:47 Heparin 5,000 Unit/Ml Inj 1 Ml SUBCUT Not Given Q12H NIDHI Furosemide 100 mg/ Sodium 50 mls @ 0 mls/hr 07/22/24 11:15 07/24/24 05:38 Chloride IV 0 mg/hr .Q0M NIDHI 0 mls/hr Titration Protocol Per Protocol Norepinephrine Bitartrate 4 mg in 250 mls @ 0 mls/hr 07/23/24 09:45 07/24/24 05:44 Levophed IV 2 mcg/min .Q0M NIDHI 7.5 mls/hr Titration Protocol Per Protocol Heparin Sodium/Sodium Chloride 25,000 unit in 500 mls @ 0 mls/hr 07/23/24 10:00 07/24/24 07:02 Heparin Drip IV 13 unit/kg/hr CONT NIDHI 26 mls/hr Administration Protocol Per Protocol Albumin Human 25 g in 100 mls @ 60 mls/hr 07/24/24 10:00 07/24/24 17:12 Albumin IV 60 mls/hr Q8H NIDHI Administration Insulin Glargine 5 unit 07/21/24 09:00 07/24/24 08:13 Insulin Glargine 100 Units/1 Ml SUBCUT 5 unit DAILY NIDHI Administration Insulin Human Lispro 0 unit 07/19/24 18:00 07/24/24 17:12 Insulin Lispro 100 Unit/1 Ml SUBCUT 6 unit WM&BEDTIME NIDHI Administration Protocol Levofloxacin 750 mg 07/23/24 11:30 07/23/24 12:21 Levofloxacin 750 Mg Tablet PO 750 mg Q48H NIDHI Administration Protocol Methylprednisolone Sodium Succinate 40 mg 07/22/24 11:30 07/24/24 10:33 Methylprednisolone Sod Succ 40 Mg/Ml Inj IVP 40 mg Q12H NIDHI Administration Morphine Sulfate 5 mg 07/19/24 15:35 07/21/24 23:01 Morphine 10 Mg/0.5 Ml Oral Liq Ud PO 5 mg Q4H PRN Administration [employer] Ondansetron HCl 4 mg 07/19/24 15:27 07/23/24 07:28 Ondansetron 2 Mg/Ml Sdv 2 Ml IVP 4 mg Q8H PRN Administration vomiting, or N/V if npo Pantoprazole Sodium 40 mg 07/19/24 18:00 07/24/24 17:[address] 40 Mg Tablet PO 40 mg BID NIDHI Administration Senna/Docusate Sodium 1 tab 07/24/24 09:00 07/24/24 08:13 Sennosides-Docusate Tablet PO 1 tab DAILY NIDHI Administration Trazodone HCl 25 mg 07/19/24 15:36 07/23/24 22:41 Trazodone 50 Mg Tablet PO 25 mg BEDTIME PRN Administration INSOMNIA PFSH Acute 2 PFSH: Medical History (Updated 07/23/24 @ 16:16 by Vandana Oviedo MD) Ischemic heart disease due to coronary artery obstruction Chronic systolic (congestive) heart failure Ischemic cardiomyopathy Sacroiliac dysfunction CKD (chronic kidney disease) Arthralgia Anemia Umbilical hernia, incarcerated Acute kidney injury Normochromic normocytic anemia Atherosclerosis of coronary artery of [place] heart without angina pectoris Sepsis Pleural effusion Community acquired pneumonia NSTEMI (non-ST elevated myocardial infarction) CHF exacerbation Restrictive lung disease Pneumonia Pancreatic cyst Pancreatitis Diabetes Hyperlipidemia Hypertension COPD (chronic obstructive pulmonary disease) Surgical History H/O esophagogastroduodenoscopy Hx of CABG History of coronary angioplasty with insertion of stent History of colonoscopy with polypectomy Family History Brother CAD (coronary artery disease) Diabetes Lung disease Sister CAD (coronary artery disease) Diabetes Cancer Lung disease Father CAD (coronary artery disease) Diabetes Lung disease Mother CAD (coronary artery disease) Diabetes Stroke Brother CAD (coronary artery disease) Diabetes Lung disease Brother CAD (coronary artery disease) Diabetes Sister CAD (coronary artery disease) Diabetes Lung disease Sister CAD (coronary artery disease) Diabetes Sister CAD (coronary artery disease) Diabetes Daughter Chronic kidney disease (CKD) Diabetes Denies family history of Clotting disorder Dementia Suicide Anesthesia complication Bleeding disorder Social History Smoking and tobacco/nicotine status: former use of tobacco/nicotine Quit status (tobacco/nicotine): has quit using Year quit tobacco: 1983 [id number] Second hand smoke exposure: No Alcohol intake: former Substance/Drug Use: never Adopted: No Caregiver/support person: Yes Lives independently: Yes Household members: spouse Housing: House Marital status: service: Yes Current occupational status: retired Pets and animals: No Leisure activites: exercise Sexually active: No Do you think of yourself as: Straight/Heterosexual Current gender identity: Male Mayra/Denominational: [employer] Special mayra needs: No Agree to transfusion: No Vitals/I&O/Wt Last Vital Signs Temp 97.7 F 07/24/24 12:00 Pulse 97 07/24/24 18:15 Resp 20 H 07/24/24 18:15 BP 115/79 07/24/24 18:15 Pulse Ox 93 07/24/24 18:15 O2 Del Method Nasal Cannula 07/24/24 16:28 O2 Flow Rate 3 07/24/24 16:28 07/24/24 07/24/24 07/24/24 06:59 14:59 22:59 Intake Total 433.483 / 1143.316 864.434 / 864.434 Output Total 400 / 600 Balance 33.483 / 543.316 864.434 / 864.434 Weight last 48 hrs Weight 100.652 kg Weight 100.017 kg Weight 100.017 kg Weight 100.017 kg Physical Exam 2 Narrative: On pressors afebrile vital signs and blood pressure 115/79 pulse rate 97 satting 93% on 3 L oxygen nasal cannula HEENT normal cephalic. Positive anicteric Neck is supple Lungs dull bases Heart regular diffuse PMI positive systolic murmur. Abdomen soft positive bowel sounds. Extremities 1+ edema bilaterally neuro lethargic. Data 07/24/24 03:02 07/24/24 04:05 A&P Assessment and plan (1) Acute kidney injury: 74-year-old gentleman with combined severe reduced EF of approximately 25%, grade 3 out of 4 diastolic dysfunction, moderate mitral regurgitation, COPD obstructive sleep apnea diabetes. Patient's EF decrease in May 2024 and at that time his renal function decline from a creatinine 1.7 to approximately 2 mg/dL. Patient now presents with an acute on chronic combined systolic and diastolic heart failure exacerbation. The patient required significant diuresis and is now developed acute on chronic renal failure. Patient on perfusion scan has new wedge-shaped defect in the central anterior right lung with question of pulmonary embolism. However on July 22, 2024 venous Doppler send no DVT bilateral lower extremities. 1. CKD stage IV baseline creatinine over 2 mg/dL is likely from cardiorenal syndrome in the settings of diabetes, obesity COPD and restrictive lung disease. -Patient might have underlying renal artery stenosis given the fact that his right kidney is mildly atrophic. 2. Acute kidney injury in this patient is likely from cardiorenal syndrome and diuresis. On imaging from July 23, 2024 left kidney is normal right kidney has mild atrophy. - I am concerned the possibility of underlying renal artery stenosis. I am concerned that patient's blood pressure was low he was requiring pressors for perfusion and he may have developed ATN. 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 3. Hyponatremia likely from heart failure and diuretics. 4. Monitor mild hyperkalemia. Patient has a mild increased anion gap metabolic acidosis we will repeat lactate and ABG, as of July 22 the patient at a well compensated pH is 7.37 5. Increasing LFTs likely from cardiac congestion leading to hepatic congestion -Will monitor urine output chemistries and mental status. If patient does not improve then we may want to consider dialysis soon the patient currently states that he wants what ever is necessary to help him live and feel comfortable. The patient was seen and examined using audiovisual equipment with the aid of a nurse who examined the patient. Plan See above. Consult Attestations 2 Medical Necessity Statement: Heart failure, acute kidney injury, altered mental status Time Spent in Patient Care: Greater than 35 minutes (>than 50% of time spent in counselling and/or direct pt care on unit) . Coding Level of Care Code Acute Code for [facility] Diagnoses Acute kidney injury N17.9
--- NOTE | 2024-07-24 18:53 | USCV_ITS ---
Torey Kaba Age: 74 Gender: M : 1950 Exam Date: 07/24/2024 23:48 Ordering Phys: Ramon Amaro MD Technologist: THOMPSON Exam Location: [facility] [place] Indication: reji, Q renal vein thrombosis, q EDVIN Aortic Velocity @ SMA (cm/s) 115 RIGHT KIDNEY LEFT KIDNEY Velocity (cm/s) Velocity (cm/s) Sys/Bolivar Sys/Bolivar Resistive Index Resistive Index 146.0 / 14.5 0.90 Mid Renal Artery 25.8 / 2.3 0.91 172.3 / 10.1 0.94 Distal Renal Artery 32.9 / 2.3 0.93 18.9 / 3.3 0.83 Upper Pole 51.3 / 4.0 0.92 18.1 / 3.3 0.82 Mid Pole 61.8 / 2.6 0.82 18.5 / 3.3 0.82 Lower Pole 70.6 / 4.8 0.93 1.50 Renal Aortic Ratio 0.30 9.0 Kidney Length (cm) 10.6 FINDINGS Very limited evaluation of the renal arteries due to GI tract content. Kidneys are normal size. No hydronephrosis. No renal artery stenosis identified but not levels are evaluated. No ratios. CONCLUSIONS Limited exam, no renal artery stenosis identified. Dr. Araceli Loo DO (Electronically Signed) Final Date: 26 July 2024 10:55 S
--- NOTE | 2024-07-24 19:00 | PC.NURSE ---
Heparin Drip Upon assessment of patient, heparin drip administering at 20 ml/hr while MAR displays 26 ml/hr. MAR updated to reflect actual administration.
[2024-07-24 20:04] LABS: ABG PCO2 36.2 mmHg (35-45); ABG PH Result 7.36 (7.35-7.45); Alveolar-Arterial Oxygen Gradi 5.1 mmHg (5-10); Arterial Blood Gas Hematocrit 28.4 % (42-52); Base Excess ABG -4.8 mmol/L (-2.0-2.0); Blood Gas Allen Test Pos; Blood Gas Sample Site Brachial, right; Blood Gas Sample Type Arterial; Carboxyhemoglobin 1.7 %THgb (0.4-20.1); HCO3 ABG 20.2 mmol/L (22-26); HGB O2 Sat 86.3 % (95-100); Ionized Calcium Level - ABG 1.1 mmol/L (1.1-1.4); Methemoglobin 0.9 % (0.4-1.5); Oxygen Device NC; Oxygen Saturation ABG 88.6; Potassium Level - ABG 5.1 mmol/L (3.5-5.0); Total Hemoglobin 9.3 g/dL (14-18)
[2024-07-24 20:20] LABS: Glucose Point of Care 209 mg/dL (70-110)
[2024-07-24] MEDS: clopidogrel 75 mg Tablet PO (20:27)
[2024-07-24 21:09] LABS: Lactate (Lactic Acid level) 3.4 mmol/L (0.5-2.2); Uric Acid 11.9 mg/dL (3.4-7.0)
[2024-07-24 21:26] LABS: Complement C3 69 mg/dL (90-180)
[2024-07-24 21:38] LABS: Bilirubin Urine Negative (Negative); Blood Urine 3+ (Negative); Glucose Urine UA Negative (Normal); Ketones Urine Negative (Negative); Leukocyte Esterase Urine 1+ (Negative); Nitrate Urine Negative (Negative); Protein Urine Trace (Negative); Specific Gravity, Urine 1.016 (1.005-1.030); Urine Appearance Cloudy (CLEAR); Urine Color Dark Yellow (Yellow)
[2024-07-24 21:57] LABS: Creatinine Urine, Random 69 mg/dL (39-259); Microalbumin Random Urine 8 ug/dL (0-20); Potassium, Radom Urine 56 mmol/L; Urine Creatinine 69 mg/dL (39-259)
[2024-07-24 21:59] LABS: Hepatitis C Virus Antibody Non-Reactive (Nonreactive)
[2024-07-24 21:59] LABS: Microalbum Creatinine Ratio Ur 116 mg/dL (0-20); Urine Protein Random 27 mg/dL; Urine Random Chloride 15 mmol/L
[2024-07-24 22:00] LABS: Bacteria Urine 1+ /hpf; RBC Urine 15-25 /hpf (0-2); Squamous Epithelial Cell Urine 0-4 /hpf (0-5); WBC Urine 0-4 /hpf (0-5)
[2024-07-24 22:01] LABS: Add Urine Culture? Yes; Urine Random Sodium < 10 mmol/L
[2024-07-24 22:30] LABS: Partial Thromboplastin Time 55.5 SECONDS (23.9-36.7)
[2024-07-24] MEDS: trazodone 50 mg Tablet 25 MG PO (23:30)
[2024-07-24] MEDS: ondansetron 2 mg/ML SDV 2 mL 4 MG IVP (23:53)
[2024-07-25] VITALS (38 sets, daily range): BP systolic 85–120; BP diastolic 52–77; PULSE 73–96; RESP 14–40; TEMP 36.4–36.5; O2SAT 87–96; BMI 31.5
[2024-07-25] MEDS: ipratropium-albuterol 3 mL Neb INHALATION ×2 (01:24→09:55)
[2024-07-25] MEDS: albumin 25 G/100 ML BAG 60 G IV (02:50)
[2024-07-25 04:20] LABS: Basophils % 0.1 %; Hematocrit 30.2 % (37-53); Lymphocytes # 0.2 10^3/uL (0.8-4.8); Lymphocytes % 1.6 %; Mean Corpuscular HGB Conc 29.1 g/dL (30-55); Mean Corpuscular Hemoglobin 22.9 pg (27-33); Mean Corpuscular Volume 78.4 fl (82-101); Mean Platelet Volume 9.9 fL (7.4-10.4); Monocytes # 0.6 10^3/uL (0.2-0.9); Monocytes % 5.6 %; Neutrophils # 9.47 10^3/uL (1.8-7.7); Neutrophils % 92.2 %; Nucleated Red Blood Cells # 0.1 /100WBC; Nucleated Red Blood Cells % 1.1 %; Platelet Count 196 10^3/cmm (157-399); Red Blood Count 3.85 10^6/uL (3.85-5.65); Red Cell Distribution Width 19.9 % (12.1-15.1); White Blood Count 10.26 10^3/uL (3.29-11.43)
[2024-07-25] MEDS: heparin drip 25,000 UNIT/500 ML PREMIX 20 UNIT IV (04:51)
[2024-07-25] MEDS: aspirin 81 mg EC Tablet PO (06:29)
--- NOTE | 2024-07-25 07:17 | PM.PN ---
Subjective Subjective: The patient was seen and examined. The patient is more lethargic in bed very poor urine output not able to give a review of systems. Medications: Reviewed: Yes Medication Review Details: Current Medications Acetaminophen (Acetaminophen 325 Mg Tablet) 650 mg PO Q6H PRN PRN Reason: Mild/Mod Pain Or Temp >/= 101 Albuterol/Ipratropium (Ipratropium-Albuterol 3 Ml Neb) 3 ml INHALATION Q6H.RESP NIDHI Last Admin: 07/25/24 01:24 Dose: 3 ml Albuterol/Ipratropium (Ipratropium-Albuterol 3 Ml Neb) 3 ml INHALATION Q6H PRN PRN Reason: SHORTNESS OF BREATH Last Admin: 07/23/24 02:45 Dose: 3 ml Aspirin (Aspirin 81 Mg Ec Tablet) 81 mg PO QAM NIDHI Last Admin: 07/25/24 06:29 Dose: 81 mg Atorvastatin Calcium (Atorvastatin 40 Mg Tablet) 20 mg PO DAILY NIDHI Last Admin: 07/24/24 08:13 Dose: 20 mg Bisacodyl (Bisacodyl 5 Mg Tablet) 5 mg PO DAILY PRN PRN Reason: CONSTIPATION Last Admin: 07/23/24 12:35 Dose: 5 mg Budesonide (Budesonide 0.5 Mg/2 Ml Neb) 0.25 mg INHALATION BID.RESPIRATORY NIDHI Last Admin: 07/24/24 19:50 Dose: 0.25 mg Ceftriaxone Sodium (Ceftriaxone 1,000 Mg Sdv) 1,000 mg IVP Q24H NIDHI; Protocol Last Admin: 07/24/24 17:12 Dose: 1,000 mg Clopidogrel Bisulfate (Clopidogrel 75 Mg Tablet) 75 mg PO BEDTIME NIDHI Last Admin: 07/24/24 20:27 Dose: 75 mg Denture Adhesive (Fixodent 39 Gm Tube) 1 applic DENTAL PRN PRN PRN Reason: denture adhesive Glucagon (Glucagon 1 Mg/Ml Kit 1 Ml) 1 mg IM ONCE PRN; Protocol PRN Reason: Adult Acute Hypoglycemia Nursing Prot. Glycerin (Glycerin Adult Supp) 1 each [place] DAILY PRN PRN Reason: CONSTIPATION Guaifenesin (Guaifenesin 600 Mg Tablet) 600 mg PO BID NIDHI Last Admin: 07/24/24 17:12 Dose: 600 mg Guaifenesin/Dextromethorphan (Guaifenesin-Dextromethorphan Udc 10 Ml) 5 ml PO Q4H PRN PRN Reason: COUGH Last Admin: 07/23/24 22:35 Dose: 5 ml Heparin Sodium (Porcine) (Heparin 5,000 Unit/Ml Inj 1 Ml) 5,000 unit SUBCUT Q12H NIDHI Last Admin: 07/25/24 02:47 Dose: Not Given Heparin Sodium (Porcine) (Heparin 5,000 Unit/Ml Inj 1 Ml) 0 unit IVP PRN PRN; Protocol PRN Reason: Heparin Weight Based Protocol -Subsequent Bolus Dextrose (D5w) 500 mls @ 0 mls/hr IV ONCE PRN; Protocol PRN Reason: Adult Acute Hypoglycemia Prot Dextrose (D10w) 125 mls @ 750 mls/hr IV PRN PRN; Protocol PRN Reason: Adult Acute Hypoglycemia Nursing Protocol Dextrose (D10w) 250 mls @ 1,000 mls/hr IV PRN PRN; Protocol PRN Reason: Adult Acute Hypoglycemia Nursing Protocol Furosemide 100 mg/ Sodium (Chloride) 50 mls @ 0 mls/hr IV .Q0M NIDHI; Protocol Last Titration: 07/24/24 05:38 Dose: 0 mg/hr, 0 mls/hr Norepinephrine Bitartrate (Levophed) 4 mg in 250 mls @ 0 mls/hr IV .Q0M NIDHI; Protocol Last Titration: 07/24/24 11:00 Dose: 0 mcg/min, 0 mls/hr Heparin Sodium/Sodium Chloride (Heparin Drip) 25,000 unit in 500 mls @ 0 mls/hr IV CONT NIDHI; Protocol Last Titration: 07/25/24 06:16 Dose: 10 unit/kg/hr, 20 mls/hr Albumin Human (Albumin) 25 g in 100 mls @ 60 mls/hr IV Q8H NIDHI Last Infusion: 07/25/24 04:52 Dose: Infused Insulin Glargine (Insulin Glargine 100 Units/1 Ml) 5 unit SUBCUT DAILY NIDHI Last Admin: 07/24/24 08:13 Dose: 5 unit Insulin Human Lispro (Insulin Lispro 100 Unit/1 Ml) 0 unit SUBCUT WM&BEDTIME NIDHI; Protocol Last Admin: 07/24/24 20:27 Dose: 4 unit Levofloxacin (Levofloxacin 750 Mg Tablet) 750 mg PO Q48H NIDHI; Protocol Last Admin: 07/23/24 12:21 Dose: 750 mg Methylprednisolone Sodium Succinate (Methylprednisolone Sod Succ 40 Mg/Ml Inj) 40 mg IVP Q12H NIDHI Last Admin: 07/24/24 22:52 Dose: 40 mg Morphine Sulfate (Morphine 10 Mg/0.5 Ml Oral Liq Ud) 5 mg PO Q4H PRN PRN Reason: [employer]GER Last Admin: 07/21/24 23:01 Dose: 5 mg Ondansetron HCl (Ondansetron 2 Mg/Ml Sdv 2 Ml) 4 mg IVP Q8H PRN PRN Reason: vomiting, or N/V if npo Last Admin: 07/24/24 23:53 Dose: 4 mg Pantoprazole Sodium (Pantoprazole Dr 40 Mg Tablet) 40 mg PO BID [facility] Last Admin: 07/24/24 17:12 Dose: 40 mg Senna/Docusate Sodium (Sennosides-Docusate Tablet) 1 tab PO DAILY [facility] Last Admin: 07/24/24 08:13 Dose: 1 tab Trazodone HCl (Trazodone 50 Mg Tablet) 25 mg PO BEDTIME PRN PRN Reason: INSOMNIA Last Admin: 07/24/24 23:30 Dose: 25 mg Vitals/I&O/Wt Last Vital Signs Temp 97.5 F L 07/25/24 04:30 Pulse 74 07/25/24 07:00 Resp 20 H 07/25/24 07:00 BP 101/74 07/25/24 07:00 Pulse Ox 93 07/25/24 07:00 O2 Del Method Nasal Cannula 07/25/24 04:30 O2 Flow Rate 3 07/25/24 04:30 07/24/24 07/25/24 07/25/24 22:59 06:59 14:59 Intake Total 483.466 / 1387.400 644.867 / 2032.267 Output Total 300 / 300 Balance 183.466 / 1087.400 644.867 / 1732.267 Weight last 48 hrs Weight 100.652 kg Physical Exam Narrative: He is currently off of pressors. Blood pressure 101/74. He is saturating 93% on 3 L oxygen nasal cannula HEENT normal cephalic. Positive anicteric Neck is supple Lungs dull bases and crackles Heart regular diffuse PMI positive systolic murmur. Abdomen soft positive bowel sounds. Extremities 1+ edema bilaterally neuro lethargic. Data 07/25/24 03:51 07/24/24 04:05 A&P Assessment and plan (1) Acute kidney injury: 74-year-old gentleman with combined severe reduced EF of approximately 25%, grade 3 out of 4 diastolic dysfunction, moderate mitral regurgitation, COPD obstructive sleep apnea diabetes. Patient's EF decrease in May 2024 and at that time his renal function decline from a creatinine 1.7 to approximately 2 mg/dL. Patient now presents with an acute on chronic combined systolic and diastolic heart failure exacerbation. The patient required significant diuresis and is now developed acute on chronic renal failure. Patient on perfusion scan has new wedge-shaped defect in the central anterior right lung with question of pulmonary embolism. However on July 22, 2024 venous Doppler send no DVT bilateral lower extremities. 1. CKD stage IV baseline creatinine over 2 mg/dL is likely from cardiorenal syndrome in the settings of diabetes, obesity COPD and restrictive lung disease. -Patient might have underlying renal artery stenosis given the fact that his right kidney is mildly atrophic. 2. Acute kidney injury in this patient is likely from cardiorenal syndrome and diuresis. On imaging from July 23, 2024 left kidney is normal right kidney has mild atrophy. - I am concerned the possibility of underlying renal artery stenosis. I am concerned that patient's blood pressure was low he was requiring pressors for perfusion and he may have developed ATN. Urinalysis from last evening dark yellow with trace protein cloudy appearance 3+ blood 1+ leuk esterase, 15-25 RBCs, calcium oxalate crystals 5-10 urine bacteria 1+ Urine sodium is less than 10 and a low urine chloride. This is consistent with prerenal azotemia. Will discuss with medicine and cardiology if they feel that patient needs to be diuresed whether we should consider dialysis. If we can hold diuretics please do. Given the fact that patient does have some hematuria serologies were ordered. Await repeat chemistries Will need to discuss with medicine and family whether this patient would be a dialysis candidate. Given the fact that his EF is now low and he has grade 3 out of 4 diastolic dysfunction with moderate mitral regurgitation I am concerned that his heart is his major issue if we cannot treat his heart the question is the utility of dialysis. 3. Hyponatremia likely from heart failure and diuretics. Uric acid of 11.9 is consistent with effective intravascular volume depletion. Low urine sodium is consistent with prerenal azotemia as cause of hyponatremia. 4. Monitor mild hyperkalemia. Patient has a mild increased anion gap metabolic acidosis we will repeat lactate and ABG, as of July 22 the patient at a well compensated pH is 7.37. Lactate was 3.4 yesterday 5. Increasing LFTs likely from cardiac congestion leading to hepatic congestion Will discuss with primary ultimate goals of care. The patient was seen and examined using audiovisual equipment with the aid of a nurse who examined the patient. Plan See above. Attestations Medical Necessity Statement*: Oligoanuric acute kidney injury, increased LFTs, acute on chronic systolic and diastolic heart failure, question of PE Time Spent in Patient Care: Greater than 35 minutes (>than 50% of time spent in counselling and/or direct pt care on unit). Coding Level of Care Code Acute Code for [facility] Fwd Diagnoses Acute kidney injury N17.9
[2024-07-25 07:47] LABS: Glucose Point of Care 140 mg/dL (70-110)
[2024-07-25 08:22] LABS: Alanine Aminotransferase 278 U/L (0-41); Albumin Level 3.8 g/dL (3.5-5.2); Alkaline Phosphatase 193 U/L (40-130); Calcium 8.3 mg/dL (8.5-10.5); Carbon Dioxide 15 mmol/L (22-29); Chloride 90 mmol/L (98-107); Ferritin 113 ng/mL (30-400); Globulin 3.2 g/dL (1.3-4.6); Glucose 133 mg/dL (65-115); Iron 13 ug/dL (59-158); Magnesium 2.8 mg/dL (1.7-2.3); Osmolality Calculated 298 mOsm/kg (285-295); Phosphorus 6.9 mg/dL (2.5-4.5); Sodium 128 mmol/L (136-145); Total Bilirubin 1.2 mg/dL (0.15-1.2)
[2024-07-25 08:23] LABS: Calcium 8.4 mg/dL (8.5-10.5)
[2024-07-25 08:28] LABS: Creatinine Clr Calc Pharmacy 24.6761
[2024-07-25 08:29] LABS: Anion Gap 29.1 (5-19); Parathyroid Hormone 221.7 pg/mL (15-65); Potassium 6.1 mmol/L (3.5-5.1)
[2024-07-25 08:30] LABS: Aspartate Amino Transferase 38 U/L (0-40)
[2024-07-25 08:31] LABS: Blood Urea Nitrogen 96 mg/dL (8-23)
[2024-07-25 08:34] LABS: 25 Hydroxy Vitamin D 26 ng/mL (30-100)
[2024-07-25 08:41] LABS: Percent Saturation 5.8 % (20-50); Total Iron Binding Capacity 223 mcg/dl; Unsaturated Iron Binding 210 ug/dL (112-347)
--- NOTE | 2024-07-25 09:00 | PC.NURSE ---
doctor in for visit talked with patient about termial status heart failure and renal status will talk with and him together when here
[2024-07-25] MEDS: atorvastatin 40 mg Tablet 20 MG PO (09:03)
[2024-07-25] MEDS: guaiFENesin 600 mg Tablet PO (09:03)
[2024-07-25] MEDS: sennosides-docusate Tablet 1 TAB PO (09:03)
[2024-07-25] MEDS: pantoprazole DR 40 mg Tablet PO (09:03)
[2024-07-25] MEDS: insulin glargine 100 units/1 mL 5 UNIT SUBCUT (09:05)
[2024-07-25] MEDS: albumin 25 G/100 ML BAG 80 G IV (09:05)
[2024-07-25] MEDS: budesonide 0.5 mg/2 mL Neb 0.25 MG INHALATION (09:55)
--- NOTE | 2024-07-25 10:40 | PC.NURSE ---
agonal resp breathing for pt ambu bag and emd noted no pulse , cpr started and doctor called at bedside requested staff to stop code at this time
--- NOTE | 2024-07-25 11:13 | PC.NURSE ---
Addendum entered by ЮЛИЯ Martinez RN 07/25/24 11:15: at 1031 Original Note: noted episodes of complete heart block in to check pt blood pressure 91/36 in room color ashen placed on 100 % o2 and placed message to doctor
--- NOTE | 2024-07-25 12:58 | P.DES_ITS ---
Discharge Providers DDS Date of Admission: 07/19/24 13:36 Date Summary Completed: 07/25/24 Attending Provider at Admission: Wilfrid Laurent Time of : 11:00 Attending Provider at Discharge: Salazar Askew DO Consults: Cardiology Nephrology Primary Care Provider: ABDULLAHI Matta Diagnoses Other Contributing Factors/Diagnoses Systolic and diastolic congestive heart failure, acute on chronic renal disease restrictive lung disease COPD sleep apnea Reason for Visit Reason for Visit retaining fluid,fluid coming out of pores Brief History: Pleasant 74-year-old gentleman with history of cardiomyopathy, EF 25%, CAD with scarring, minimal ischemia, no active ischemia on stress test of May, EF on nuclear scan at that time noted 16%, with LifeVest, chronic systolic and diastolic CHF, on nasal cannula oxygen 2 L normally at home, recently assessed in ER due to urinary retention and has a Blair catheter since 07/12, ischemic cardiomyopathy, CKD, restrictive lung disease, DM 2, HTN, HLD, pancreatitis, COPD, other medical problems, presented to ER with progressive edema, abdominal discomfort, weeping. He had been increasing diuretic dose at home from 1-2 then 4 tablets, but still without any noticeable improvement on the second day. He has been instructed to maintain 1 L fluid restriction but has been having trouble keeping with a due to his mouth getting dry while wearing oxygen. He has not been able to tolerate/wear his LifeVest, and had discussed this with his revenue collector. He normally is on 2 L of oxygen at home. He has difficult time sleeping at night, often wakes up and has to sit up, feeling like he is lacking air. Although when he measures his saturation it is usually normal at that time. He has a history of sleep apnea but has not been able to tolerate his CPAP. Summary Date and Time of Date of : 07/25/24 Time of : 11:00 Summary Summary: Patient with known chronic congestive heart failure systolic and diastolic. He had been admitted 2 times prior in the last month for worsening heart failure. It had been determined that medical management was the only course of action during these last hospitalizations. He had multiple comorbidities. During this hospital stay, he did not respond to diuresis and suffered with acute on chronic kidney disease remaining with significant anasarca. He was not a transplant candidate and it was determined that no further treatments could be offered. I spoke with the patient briefly this morning and explained that his body was giving out . I had plan to return to speak with him and his regarding prognosis. However, prior to my return patient coded with asystole. Compressions were initiated however the was present and subsequently declined CPR. Upon my arrival patient's had agonal breathing but no palpable pulse. We allowed the patient's to stay with patient he was subsequently pronounced at 11 AM. Additional Data Advance directives?: Yes Discharge Plan Discharge Patient Disposition: Condition: Prescriptions: No Action fluticasone propionate [Allergy Relief (fluticasone)] 50 mcg/actuation spray,suspension 1 spray INTRANASAL BID Rx Instructions: administer into each nostril clopidogrel 75 mg tablet 75 mg PO BEDTIME magnesium oxide 400 mg magnesium capsule 400 mg PO QAM nitroglycerin [Nitrostat] 0.4 mg tablet, sublingual 0.4 mg SUBLINGUAL Q5M PRN (Reason: Chest Pain) Qty: 30 2RF Rx Instructions: do not exceed 3 doses per episode Jardiance 10 mg tablet 10 mg PO DAILY 30 Days Qty: 30 5RF (DME) Diabetic Shoes With Custom Molded Inserts See Rx Instructions .Route .MEDSUPPLY Qty: 1 0RF Rx Instructions: Directed by [facility] aspirin 81 mg Tablet,Delayed Release (Dr/Ec) 81 mg PO QAM insulin aspart U-100 [Novolog FlexPen U-100 Insulin] 100 unit/mL (3 mL) insulin pen See Rx Instructions .Route .COMPLEX PRN (Reason: blood sugar) Rx Instructions: Inject, subcu, 3 times daily as needed, after meals, based on sliding scale provided sulfasalazine 500 mg Tablet 500 mg PO BID metoprolol tartrate 25 mg Tablet 12.5 mg PO BID@0900,2100 30 Days Qty: 30 0RF furosemide 40 mg tablet 40 mg PO DAILY 30 Days Qty: 30 0RF potassium chloride 10 mEq tablet extended release 10 meq PO DAILY 30 Days Qty: 30 0RF pantoprazole [Protonix] 40 mg tablet,delayed release (DR/EC) 40 mg PO BID 30 Days Qty: 60 0RF carvedilol 25 mg Tablet 25 mg PO BID Rx Instructions: must administer with a meal/food sucralfate 1 gram tablet 1 g PO BID lovastatin 20 mg Tablet 20 mg PO DAILY insulin glargine [Lantus U-100 Insulin] 100 unit/mL solution 38 unit SUBCUT BID fluticasone propion-salmeterol [Wixela Inhub] 250-50 mcg/dose Blister With Device 1 inh INHALATION BID diclofenac sodium 1 % Gel 2 g TOPICAL QID PRN (Reason: Pain) Rx Instructions: apply to single elbow, wrist or hand; for hand includes palm/fingers/back of hand Referrals: Rizwana Ruano FNP [Primary Care Provider] - DS Attestations Time Spent in /Discharge Care*: greater than 30 min Quality - AMI: AMI present?: No Quality - Stroke: CVA present?: No Symptom Onset Unknown: No Quality - VTE: VTE present?: No Deep Vein Thrombosis/Pulmonary Embolism Present on Admission: No Coding Level of Care Code Acute Code for [facility] E
--- NOTE | 2024-07-25 14:03 | PC.NURSE ---
released to juanita barry dentures in mouth
[2024-07-26 07:50] LABS: Anti-streptolysin O 87 IU/mL (<200)
[2024-07-26 08:25] LABS: Anti-Double Strand DNA AB <1 IU/mL
== END 2024-07-25 11:00 | disposition expired | DRG 291 ==
LOC: ER 13:04 → CSU 13:44 → ICU 07-23 11:20
PROVIDERS: Emergency Medicine; Internal Medicine; Internal Medicine Nephrology; Student in an Organized Health Care Education/Training Program; Admitting Provider Internal Medicine; Emergency Provider Emergency Medicine; PCP Nurse Practitioner; Visit Provider Internal Medicine
DX: I13.0 Hypertensive heart and chronic kidney disease with heart failure and stage 1 through stage 4 chronic kidney disease, or unspecified chronic kidney disease (principal); I50.43 Acute on chronic combined systolic (congestive) and diastolic (congestive) heart failure; K72.00 Acute and subacute hepatic failure without coma; N18.4 Chronic kidney disease, stage 4 (severe); J44.1 Chronic obstructive pulmonary disease with (acute) exacerbation; N17.9 Acute kidney failure, unspecified; E87.1 Hypo-osmolality and hyponatremia; E11.22 Type 2 diabetes mellitus with diabetic chronic kidney disease; G47.33 Obstructive sleep apnea (adult) (pediatric); I45.10 Unspecified right bundle-branch block; E87.5 Hyperkalemia; G47.00 Insomnia, unspecified; I25.5 Ischemic cardiomyopathy; I25.10 Atherosclerotic heart disease of native coronary artery without angina pectoris; E78.5 Hyperlipidemia, unspecified; E88.810 Metabolic syndrome; Z79.82 Long term (current) use of aspirin; R09.02 Hypoxemia; R00.0 Tachycardia, unspecified; R57.0 Cardiogenic shock; K76.1 Chronic passive congestion of liver; Z79.4 Long term (current) use of insulin; Z79.85 Long-term (current) use of injectable non-insulin antidiabetic drugs; Z99.81 Dependence on supplemental oxygen; Z87.891 Personal history of nicotine dependence; Z95.1 Presence of aortocoronary bypass graft; Z95.5 Presence of coronary angioplasty implant and graft; I25.2 Old myocardial infarction
CPT/HCPCS: 0241U; 36415; 36416; 36573; 36592; 36600; 71045; 74176; 76705; 78580; 80051; 80053; 81001; 82044; 82306; 82310; 82330; 82436; 82570; 82728; 82805; 82962; 83520; 83540; 83550; 83605; 83735; 83880; 83970; 84100; 84133; 84156; 84300; 84484; 84550; 85025; 85378; 85730; 86036; 86038; 86060; 86160; 86225; 86803; 87086; 87486; 87581; 87633; 93005; 93308; 93970; 93975; 94640; 96372; 96374; 96376; 99285; A9270; A9540; C1751; J0696; J1644; J1650; J1815; J1940; J2405; J2919; J7626; P9046; Q3014